=== PATIENT | female | born 1940 | race African-American/Black ===

== ENCOUNTER 2020-06-07 15:49 | Emergency (ER) | payer OTHER, SELFPAY ==
--- NOTE | 2020-06-07 | ECG_ITS ---
Test Reason : CHEST PAIN Blood Pressure : / mmHG Vent. Rate : 068 BPM Atrial Rate : 068 BPM P-R Int : 144 ms QRS Dur : 070 ms QT Int : 416 ms P-R-T Axes : 043 035 084 degrees QTc Int : 442 ms Normal sinus rhythm with sinus arrhythmia Minimal voltage criteria for LVH, may be normal variant Nonspecific T wave abnormality Abnormal ECG When compared with ECG of 08-MAY-2019 12:23, Nonspecific T wave abnormality has replaced inverted T waves in Anterolateral leads Referred By: Generic ED Physician Electronically Signed By:ELISABETH ORDONEZ MD
[2020-06-07 17:27] VITALS: BP 160/88; PULSE 68; RESP 16; TEMP 37.7; O2SAT 99; BMI 27.4
--- NOTE | 2020-06-07 18:48 | ED.GENADULT ---
HPI - General Adult General Chief complaint: General Medical Stated complaint: numbness in left side,chest pain Time Seen by Provider: 06/07/20 18:48 Source: patient Mode of arrival: ambulatory Limitations: no limitations History of Present Illness HPI narrative: patient has history of hypertension nondiabetic comes here for left hand tingling sensation left leg tingling sensation and chest pain for about a week. Chest pain is all over the chest increases on palpation continues pain no shortness of breath no cough. Patient denies any weakness no neck pain no significant back pain Onset (ago): week(s) (1) Related Data Allergies Allergy/AdvReac Type Severity Reaction Status Date / Time Latex Gloves Allergy Unknown rash Uncoded 03/16/20 00:00 Anjali spice Allergy Unknown Rash Uncoded 06/07/20 17:34 Review of Systems Review of Systems: REVIEW OF SYSTEMS: Pertinent positives and negatives are stated above in the history. GEN: no fevers, chills, fatigue HEENT: no nasal congestion, sore throat, ear pain NEURO: no headache, dizziness, focal weakness PULM: no cough, shortness of breath CV: no palpitations, LE edema ABD: no abdominal pain, nausea, vomiting, diarrhea : no dysuria, urgency, frequency SKIN: no rash ROS otherwise negative x 10 PMFSH Past Medical History Medical History Anemia GERD (gastroesophageal reflux disease) HTN (hypertension) Social History Social History Advance Directives: No Advance Directives Information Provided: No Physical Exam Vital Signs: Vital Signs: Vital Signs Temp Pulse Resp BP Pulse Ox 06/07/20 20:00 98.2 F 70 16 185/80 H 06/07/20 19:15 98.6 F 72 14 189/81 H 97 06/07/20 17:27 99.8 F 68 16 160/88 H 99 Body Mass Index 27.4 VITAL SIGNS: Reviewed. GENERAL: Well developed, well nourished, in no acute distress. HEAD: Normocephalic/atraumatic, Posterior oropharynx was without edema, erythema or exudate. EYES: PERRLA, EOMI intact without pain, no nystagmus/pallor/icterus noted EARS: Ext canals without abnormality, TMs non-bulging and non-erythematous NOSE: Nares patent bilateral OROPHARYNX: no oral lesions noted, posterior pharynx clear and non-erythematous without noted tonsillar enlargement/erythema/exudates NECK: Supple, no adenopathy LUNGS: Normal breath sounds. No adventitious sounds or accessory muscle use diffuse chest wall tenderness++ CARDIOVASCULAR: Regular rate and rhythm without noted murmurs, no JVD or lower extremity edema. ABDOMEN: Soft, non-tender, non-distended with bowel sounds. No rigidity. No guarding. No palpable masses or hernias noted MUSCULOSKELETAL: No tenderness, deformities, or effusions noted on gross inspection. EXTREMITIES: No cyanosis, clubbing or edema no spinal tenderness. SKIN: Inspection of the skin reveals no rashes, ulcerations, jaundice, pallor, or petechiae NEUROLOGIC: Alert and oriented x 3. Strength and sensation to light touch were grossly intact Tinel sign positive left hand for carpal tunnel no motor weakness of the hand SLR negative both lower extremities x 4. Course Course Course Narrative: patient with nonspecific paresthesia left side clinically left carpal tunnel syndrome lab showed significant hypo magnesemia etiology not very clear and mild hypokalemia patient was given IV magnesium and IV potassium advised to follow-up with her primary care doctor discharge her on p.o. magnesium and potassium tablets Medical Decision Making Lab Data Result diagrams: 06/07/20 20:06/07/20 20:01 Labs: Lab Results 06/07/20 06/07/20 06/07/20 Range/Units 20:01 20:01 20:01 WBC 10.8 (4.8-10.8) X10*3/uL RBC 4.15 L (4.20-5.50) X10*6/uL Hgb 13.1 (12.0-16.0) g/dl Hct 39.9 (37-47) % MCV 96.1 (80-98) fL MCH 31.6 (27.0-33.0) pg MCHC 32.8 (31.0-35.0) g/dl RDW 12.4 (11.0-16.0) % Plt Count TNP MPV 10.7 (9.4-12.3) fL Immature Gran % (Auto) 0.2 (0.0-0.4) % Neut % (Auto) 63.4 (45-73) % Lymph % (Auto) 29.8 (20-40) % [place] % (Auto) 5.6 (2-11) % Eos % (Auto) 0.5 (0-4) % Baso % (Auto) 0.5 (0-2) % Lymph # (Auto) 3.2 (1.2-4.9) X10*3/uL [place] # (Auto) 0.6 (0.1-1.2) X10*3/uL Eos # (Auto) 0.1 (0.0-0.4) X10*3/uL Baso # (Auto) 0.1 (0.0-0.2) X10*3/uL Abs Immat Gran (auto) 0.02 (0.00-0.03) X10*3/uL Absolute Neuts (auto) 6.9 (2.0-8.3) X10*3/uL Absolute Nucleated RBC 0.000 (0.0-0.012) X10*3/uL Nucleated RBC % (auto) 0.0 (0.0-0.2) /100WBC Smear Tech's Comments VERIFIED Sodium 140 (135-145) mmol/L Potassium 3.0 L (3.3-5.1) mmol/l Chloride 101 (96-108) mmol/L Carbon Dioxide 24 (22-29) mmol/L Anion Gap 18 (12-20) BUN 12 (9-16) mg/dL Creatinine 0.73 (0.5-1.4) mg/dL Estim Creat Clear Calc 46.3 Estimated GFR > 60 Random Glucose 87 (60-115) mg/dL Calcium 7.7 L (8.4-10.2) mg/dL Magnesium < 0.6 L* (1.6-2.6) mg/dL Troponin I High Sens 14.6 (<3.5-17.0) ng/L ECG Data Attestation: I personally reviewed and interpreted this ECG as follows: Prior ECG tracings: available for review Interpretation: [id number] Rhythm:sinus Nonspecific ST T wave changes sinus arrhythmia no acute ischemic changes
[2020-06-07 19:15] VITALS: BP 189/81; PULSE 72; RESP 14; TEMP 37; O2SAT 97
[2020-06-07 20:00] VITALS: BP 185/80; PULSE 70; RESP 16; TEMP 36.8
[2020-06-07 20:07] LABS: Basophils Absolute Auto 0.1 X10*3/uL (0.0-0.2); Basophils Percent Auto 0.5 % (0-2); MANUAL DIFF FLAG SCAN; PLT CLUMP 1; SCAN SMEAR FLAG 1
[2020-06-07 20:09] LABS: Eosinophils Absolute Auto 0.1 X10*3/uL (0.0-0.4); Eosinophils Percent Auto 0.5 % (0-4); Hematocrit 39.9 % (37-47); Hemoglobin 13.1 g/dl (12.0-16.0); Imm Gran Abs Auto 0.02 X10*3/uL (0.00-0.03); Imm Gran Pct Auto 0.2 % (0.0-0.4); Lymphocytes Absolute Auto 3.2 X10*3/uL (1.2-4.9); Lymphocytes Percent Auto 29.8 % (20-40); Mean Corpuscular HGB Conc 32.8 g/dl (31.0-35.0); Mean Corpuscular Hemoglobin 31.6 pg (27.0-33.0); Mean Corpuscular Volume 96.1 fL (80-98); Mean Platelet Volume 10.7 fL (9.4-12.3); Monocytes Absolute Auto 0.6 X10*3/uL (0.1-1.2); Monocytes Percent Auto 5.6 % (2-11); Neutrophils Absolute Auto 6.9 X10*3/uL (2.0-8.3); Neutrophils Percent Auto 63.4 % (45-73); Red Blood Count 4.15 X10*6/uL (4.20-5.50); Red Cell Distribution Width 12.4 % (11.0-16.0); White Blood Count 10.8 X10*3/uL (4.8-10.8)
[2020-06-07 20:32] LABS: SLIDE REVIEW VERIFIED
[2020-06-07 20:38] LABS: Troponin-I High Sensitivity 14.6 ng/L (<3.5-17.0)
[2020-06-07 20:50] LABS: Anion Gap 18 (12-20); Blood Urea Nitrogen 12 mg/dL (9-16); Calcium 7.7 mg/dL (8.4-10.2); Carbon Dioxide 24 mmol/L (22-29); Chloride 101 mmol/L (96-108); Creatinine Clr Calc Pharmacy 46.3; Estimated Glomerular Filt Rate > 60; Glucose Random 87 mg/dL (60-115); Magnesium < 0.6 mg/dL (1.6-2.6); Sodium 140 mmol/L (135-145)
[2020-06-07] MEDS: Magnesium Sulfate/H2O 2 GM/50 ML PIGGYBACK IV (21:33)
--- NOTE | 2020-06-07 21:36 | PC.NURSE ---
pt magnesium sulfate infusing thru a 20g to the left ac.
[2020-06-07] MEDS: Potassium Chloride/H20 10 MEQ/100 ML PIGGYBACK 100 MEQ IV ×2 (21:55→23:09)
--- NOTE | 2020-06-07 23:14 | PC.NURSE ---
potassium 10 emilia first bag completed. pt july well. pt has been up to bathroom with steady gait. skin pink warm dry. chest slight pain 5/10
--- NOTE | 2020-06-08 00:37 | PC.NURSE ---
iv fluids completed. pt still has pain to her mid upper chest, hard stabbing pain 7/10
[2020-06-08] MEDS: traMADoL HCL 50 MG TABLET PO (01:39)
== END 2020-06-08 01:58 | disposition home or self-care (01) ==
PROVIDERS: Emergency Provider Internal Medicine
DX: R07.9 Chest pain, unspecified (principal); R20.2 Paresthesia of skin; E83.42 Hypomagnesemia; E87.6 Hypokalemia; G56.02 Carpal tunnel syndrome, left upper limb; I10 Essential (primary) hypertension
CPT/HCPCS: 29125; 36415; 80048; 83735; 84484; 85025; 93005; 96365; 96367; 96375; 99284; J1885; J3475

== ENCOUNTER 2020-06-20 09:11 | Outpatient (REF) | payer OTHER, SELFPAY ==
[2020-06-20 10:34] LABS: Hematocrit 41.5 % (37-47); Hemoglobin 13.6 g/dl (12.0-16.0); Mean Corpuscular HGB Conc 32.8 g/dl (31.0-35.0); Mean Corpuscular Hemoglobin 31.4 pg (27.0-33.0); Mean Corpuscular Volume 95.8 fL (80-98); Mean Platelet Volume 9.8 fL (9.4-12.3); Platelet Count 333 X10*3/uL (160-400); Red Blood Count 4.33 X10*6/uL (4.20-5.50); Red Cell Distribution Width 11.7 % (11.0-16.0); White Blood Count 9.8 X10*3/uL (4.8-10.8)
[2020-06-20 10:48] LABS: Anion Gap 15 (12-20); Blood Urea Nitrogen 11 mg/dL (9-16); Calcium 9.6 mg/dL (8.4-10.2); Carbon Dioxide 28 mmol/L (22-29); Chloride 100 mmol/L (96-108); Estimated Glomerular Filt Rate > 60; Glucose Random 108 mg/dL (60-115); Magnesium 2.1 mg/dL (1.6-2.6); Potassium 4.9 mmol/l (3.3-5.1); Sodium 138 mmol/L (135-145)
== END 2020-06-20 09:12 | disposition home or self-care (01) ==
LOC: HO.10HDL 09:11
DX: E87.6 Hypokalemia (principal)
CPT/HCPCS: 36415; 80048; 83735; 85027

== ENCOUNTER 2020-08-15 17:06 | Emergency (ER) | payer OTHER, SELFPAY ==
[2020-08-15 17:10] VITALS: BP 159/79; PULSE 76; RESP 16; TEMP 37; O2SAT 98; BMI 27.4
[2020-08-15 17:58] VITALS: BP 175/76; PULSE 77; RESP 16; TEMP 36.7; O2SAT 99
--- NOTE | 2020-08-15 18:06 | ECG_ITS ---
Test Reason : left arm numbness and tingling since yesterday Blood Pressure : / mmHG Vent. Rate : 078 BPM Atrial Rate : 078 BPM P-R Int : 136 ms QRS Dur : 086 ms QT Int : 402 ms P-R-T Axes : 054 044 084 degrees QTc Int : 458 ms Sinus rhythm with Premature atrial complexes Minimal voltage criteria for LVH, may be normal variant Nonspecific T wave abnormality Abnormal ECG When compared with ECG of 07-JUN-2020 17:19, Premature atrial complexes are now Present Referred By: Shiva Laughlin Electronically Signed By:JAVIER ROMANO MD
--- NOTE | 2020-08-15 18:12 | CT_ITS ---
EXAMINATION: CT ANGIOGRAM NECK WITH CONTRAST CT ANGIOGRAM BRAIN WITH CONTRAST CLINICAL INFORMATION: Left-sided weakness since yesterday. Question infarct. COMPARISON: None. TECHNIQUE: Initial noncontrast head CT was performed. Test bolus sequences followed by intravenous administration 100 mL of Omnipaque 350. Helical imaging was performed in the axial plane from the thoracic inlet to the skull vertex. Delayed postcontrast imaging of the head was also performed. The data was processed at the special procedures technologist workstation for generation of MIP sequences. Angled MIPs and volume rendered reformatted images were also generated at an offline 3D workstation. Stenoses are assessed in accordance with NASCET criteria unless otherwise indicated. This CT examination was performed using dose optimization techniques as appropriate, variously including the following: *Automated exposure control *Adjustment of mA and/or kV according to patient size (this includes techniques or standardized protocols for targeted exams where dose is matched to indication/reason for exam; i.e. extremities or head) *Use of iterative reconstruction technique DLP: 2230 mGy-cm FINDINGS: Head CT: There is no intracranial hemorrhage, extra-axial collection, or CT evidence of acute large territory infarction. Patchy areas of hypoattenuation are seen in the bilateral periventricular and subcortical white matter likely reflecting chronic microangiopathy. The ventricles and sulci appear commensurate. No hydrocephalus is seen. There is no abnormal enhancement on the postcontrast images. The extracranial structures appear normal. CTA: The aortic arch and great vessels are patent. Atheromatous changes are seen at the left more than right carotid bifurcations but without significant stenosis. Significant calcific plaque is seen at the right vertebral artery origin resulting in mild to moderate stenosis. No proximal vessel occlusion is seen. Atheromatous changes are seen at the carotid siphons and along the intradural vertebral arteries but without significant stenosis. No definite aneurysm is seen. Non-vascular findings: No neck mass is seen. Multiple nodules are seen within the thyroid gland but measures less than 1.5 cm. There is no consolidation within the upper lungs. Multilevel degenerative changes are seen within the spine. CT/CT angio head neck IMPRESSION: CT head: No intracranial hemorrhage or large acute infarction. Patchy areas of hypoattenuation are seen in the bilateral cerebral white matter most compatible chronic microangiopathy. CTA neck: No hemodynamically significant stenosis in the major arteries of the neck. CTA head: No large vessel occlusion or significant stenosis within the intracranial circulation. This critical result was discussed with IVELISSE Arreola on 08/15/2020 11:16 PM, and it was ascertained that the content and urgency of the report was understood at the time of direct communication.
--- NOTE | 2020-08-15 19:07 | ED_ITS ---
HPI - Weakness General Chief complaint: Weakness Stated complaint: Numbness Time Seen by Provider: 08/15/20 17:38 Source: patient Mode of arrival: ambulatory Limitations: no limitations History of Present Illness HPI Narrative: To the ED for multiple complaints. Patient 1st complaint is left arm numbness, tingling, and weakness since last night. Patient also states nurse vision in left eye for the past 3 days. Patient's 3rd complaint is left lower extremity, weakness, and feels like she is dragging her left leg since last night. Patient was sent by her nurse for evaluation to make sure she is not having a stroke. Patient is out of the window. Related Data Previous Rx's Medication Instructions Recorded magnesium oxide 400 mg PO BID #60 tab 06/08/20 potassium chloride [Klor-Con M10] 10 meq PO DAILY #14 tab 06/08/20 tramadol 50 mg PO Q8H PRN #20 tab 06/08/20 nifedipine 60 mg tablet,extended 60 mg PO DAILY 90 Days #90 tab 06/22/20 release Allergies Allergy/AdvReac Type Severity Reaction Status Date / Time Latex Gloves Allergy Unknown rash Uncoded 03/16/20 00:00 Anjali spice Allergy Unknown Rash Uncoded 06/07/20 17:34 Review of Systems Constitutional: Constitutional: Reports as per HPI and Reports no additional constitutional complaints Eyes: Eyes: Reports as per HPI and Reports no additional eye complaints ENT: Reports system reviewed and no additional complaints, except as d ocumented and Reports as per HPI Cardiovascular: Cardiovascular: Reports as per HPI and Reports no additional cardiovascular complaints Respiratory: Respiratory: Reports as per HPI and Reports no additional respiratory complaints Gastrointestinal: Gastrointestinal: Reports as per HPI and Reports no additional gastrointestinal complaints Musculoskeletal: Musculoskeletal: Reports no additional musculoskeletal complaints and Reports as per HPI Comments: left upper extremity numbness/tingling/weakness. Left leg weakness and dragging. Neurologic: Reports system reviewed and no additional complaints, except as documented and Reports as per HPI Psychiatric: Psychiatric: Reports no additional psychiatric complaints and Reports as per HPI [facility] Past Medical History Medical History (Updated 08/16/20 @ 01:06 by IVELISSE Arreola) Anemia DVT (deep venous thrombosis) GERD (gastroesophageal reflux disease) HTN (hypertension) Social History Social History Alcohol intake: never Smoking Status: Never smoker Smoked in Last 30 Days: No Use of substances other than those prescribed or required for medical reasons: No Advance Directives: No Advance Directives Information Provided: Yes Physical Exam Vital Signs: Vital Signs: Last Vital Signs Temp 98.8 F 08/15/20 21:53 Pulse 78 08/16/20 01:15 Resp 16 08/16/20 01:15 BP 172/83 H 08/16/20 01:15 Pulse Ox 95 08/16/20 01:15 Body Mass Index 27.4 Const: General: cooperative, healthy appearing, comfortable, no acute distress, well developed, alert and awake Orientation/consciousness: patient oriented x3 HENMT: Head: Yes normal to inspection and Yes No palpable skull fracture present Eyes: General: appearance normal, both eyes and all related structures Neck: Other: Negative for carotid bruit Neck: Yes normal visual inspection, Yes full ROM, Yes no lymphadenopathy, Yes no meningeal signs, Yes trachea midline, Yes supple and No tender Chest: Chest palpation & inspection: normal inspection of the chest and abnormal palpation of chest wall Resp: Effort & Inspection: normal respiratory effort and able to speak in complete sentences Auscultation: clear to auscultation bilaterally Cardio: Jugular venous distension: no JVD Heart sounds: S1 normal heart sound present and S2 normal heart sound present GI: Inspection: Yes normal to inspection and No abdominal wall ecchymosis Palpation (GI): Soft to palpation, not firm, nontender, no guarding and not rigid : General: No CVA tenderness and Yes no CVA tenderness Back/Spine/Pelvis: Back: no CVA tenderness, No CVA tenderness and No back tenderness Skin: General skin exam: no rashes or lesions noted and elasticity normal Neuro: Other: Negative for facial droop. Negative for slurred speech. Negative for pronator drift. Right/left upper and lower extremity strength 5+. Rapid hand movement and [id number] tests are intact. General: patient or iented x3 and no meningeal signs Extrem: Other: Negative for any swelling, redness, ecchymosis, or deformities of lower or upper extremities to indicate cellulitis, DVT, or fracture. Pulses of lower extremities are intact Psych: Appearance: grossly normal and well kempt Course Course Course Narrative: Send patient for CT angio of neck to rule out any stroke although patient's out the window. Will order basic labs including EKG and troponin. Will also add magnesium. Reevaluation(s) Reevaluation #1: Patient magnesium came back at 1.0. Patient lower extremity x- ray negative for any fractures. I observed patient walking to the bathroom & she did not have any dragging of the left leg or abnormal gait. Patient initial troponin came back at 14. Due to patient staying story of dragging of left lower extremity, blurry vision left eye, and weakness and numbness and left upper extremity and medical risk factors for stroke, patient head CTA was ordered before I saw her walking. Very unlikely patient having a stroke awaiting for head CTA and neck results. Time: 20:31 Reevaluation #2: Head CT came back negative. Second troponin repeat magnesium ordered. Time: 00:11 Reevaluation #3: Patient states history of cataracts and left. Visual acuity in both eyes were 20/30. Bedside ultrasound of left eye negative for retinal detachment. Awaiting for 2nd troponin and magnesium. Time: 00:38 Additional Reevaluation(s): Patient's 2nd troponin decreased. Patient magnesium is normal. Patient is safe for discharge. Re-evaluation negative for neuro focal deficits. MDM - Weakness MDM Narrative Medical decision making narrative: Paresthesia. Weakness Lab Data Result diagrams: 08/15/20 20:31 12 20:31 Labs: Lab Results 08/15/20 08/15/20 12 Range/Units 20:31 20:31 20:31 WBC 12.1 H (4.8-10.8) X10*3/uL RBC 4.17 L (4.20-5.50) X10*6/uL Hgb 13.0 (12.0-16.0) g/dl Hct 38.5 (37-47) % MCV 92.3 (80-98) fL MCH 31.2 (27.0-33.0) pg MCHC 33.8 (31.0-35.0) g/dl RDW 12.2 (11.0-16.0) % Plt Count 277 (160-400) X10*3/uL MPV 9.6 (9.4-12.3) fL Immature Gran % (Auto) 0.2 (0.0-0.4) % Neut % (Auto) 60.7 (45-73) % Lymph % (Auto) 30.9 (20-40) % [place] % (Auto) 7.2 (2-11) % Eos % (Auto) 0.7 (0-4) % Baso % (Auto) 0.3 (0-2) % Lymph # (Auto) 3.7 (1.2-4.9) X10*3/uL [place] # (Auto) 0.9 (0.1-1.2) X10*3/uL Eos # (Auto) 0.1 (0.0-0.4) X10*3/uL Baso # (Auto) 0.0 (0.0-0.2) X10*3/uL Abs Immat Gran (auto) 0.02 (0.00-0.03) X10*3/uL Absolute Neuts (auto) 7.3 (2.0-8.3) X10*3/uL Absolute Nucleated RBC 0.000 (0.0-0.012) X10*3/uL Nucleated RBC % (auto) 0.0 (0.0-0.2) /100WBC PT 12.6 (10.8-13.0) SEC INR 1.1 (0.9-1.1) APTT 33.1 (24.1-38.0) SEC Sodium 141 (135-145) mmol/L Potassium 3.5 D (3.3-5.1) mmol/l Chloride 101 (96-108) mmol/L Carbon Dioxide 33 H (22-29) mmol/L Anion Gap 11 L (12-20) BUN 13 (9-16) mg/dL Creatinine 0.74 (0.5-1.4) mg/dL Estim Creat Clear Calc 45.6 Estimated GFR > 60 Random Glucose 90 (60-115) mg/dL Calcium 9.3 (8.4-10.2) mg/dL Magnesium (1.6-2.6) mg/dL Total Bilirubin 0.3 (0.0-1.0) mg/dL AST 14 (5-31) U/L ALT 9 (0-31) U/L Alkaline Phosphatase 76 (39-117) U/L Troponin I High Sens (<3.5-17.0) ng/L Total Protein 7.0 (6.5-8.0) g/dL Albumin 4.2 (3.5-5.0) g/dL Urine Color Urine Appearance Urine pH (5.0-8.0) Ur Specific [place] (1.005-1.025) Urine Protein (NEG-TRACE) MG/DL Urine Glucose (UA) (NEG) MG/DL Urine Ketones (NEG) MG/DL Urine Blood (NEG) Urine Nitrite (NEG) Ur Leukocyte Esterase (NEG) 08/15/20 08/15/20 08/15/20 Range/Units 20:31 20:31 20:31 WBC (4.8-10.8) X10*3/uL RBC (4.20-5.50) X10*6/uL Hgb (12.0-16.0) g/dl Hct (37-47) % MCV (80-98) fL MCH (27.0-33.0) pg MCHC (31.0-35.0) g/dl RDW (11.0-16.0) % Plt Count (160-400) X10*3/uL MPV (9.4-12.3) fL Immature Gran % (Auto) (0.0-0.4) % Neut % (Auto) (45-73) % Lymph % (Auto) (20-40) % [place] % (Auto) (2-11) % Eos % (Auto) (0-4) % Baso % (Auto) (0-2) % Lymph # (Auto) (1.2-4.9) X10*3/uL [place] # (Auto) (0.1-1.2) X10*3/uL Eos # (Auto) (0.0-0.4) X10*3/uL Baso # (Auto) (0.0-0.2) X10*3/uL Abs Immat Gran (auto) (0.00-0.03) X10*3/uL Absolute Neuts (auto) (2.0-8.3) X10*3/uL Absolute Nucleated RBC (0.0-0.012) X10*3/uL Nucleated RBC % (auto) (0.0-0.2) /100WBC PT (10.8-13.0) SEC INR (0.9-1.1) APTT (24.1-38.0) SEC Sodium (135-145) mmol/L Potassium (3.3-5.1) mmol/l Chloride (96-108) mmol/L Carbon Dioxide (22-29) mmol/L Anion Gap (12-20) BUN (9-16) mg/dL Creatinine (0.5-1.4) mg/dL Estim Creat Clear Calc Estimated GFR Random Glucose (60-115) mg/dL Calcium (8.4-10.2) mg/dL Magnesium 1.0 L* (1.6-2.6) mg/dL Total Bilirubin (0.0-1.0) mg/dL AST (5-31) U/L ALT (0-31) U/L Alkaline Phosphatase (39-117) U/L Troponin I High Sens 11.1 (<3.5-17.0) ng/L Total Protein (6.5-8.0) g/dL Albumin (3.5-5.0) g/dL Urine Color STRAW Urine Appearance CLEAR Urine pH 7.0 (5.0-8.0) Ur Specific [place] 1.010 (1.005-1.025) Urine Protein NEG (NEG-TRACE) MG/DL Urine Glucose (UA) NEG (NEG) MG/DL Urine Ketones NEG (NEG) MG/DL Urine Blood NEG (NEG) Urine Nitrite NEG (NEG) Ur Leukocyte Esterase NEG (NEG) 08/15/20 08/15/20 Range/Units 23:41 23:41 WBC (4.8-10.8) X10*3/uL RBC (4.20-5.50) X10*6/uL Hgb (12.0-16.0) g/dl Hct (37-47) % MCV (80-98) fL MCH (27.0-33.0) pg MCHC (31.0-35.0) g/dl RDW (11.0-16.0) % Plt Count (160-400) X10*3/uL MPV (9.4-12.3) fL Immature Gran % (Auto) (0.0-0.4) % Neut % (Auto) (45-73) % Lymph % (Auto) (20-40) % [place] % (Auto) (2-11) % Eos % (Auto) (0-4) % Baso % (Auto) (0-2) % Lymph # (Auto) (1.2-4.9) X10*3/uL [place] # (Auto) (0.1-1.2) X10*3/uL Eos # (Auto) (0.0-0.4) X10*3/uL Baso # (Auto) (0.0-0.2) X10*3/uL Abs Immat Gran (auto) (0.00-0.03) X10*3/uL Absolute Neuts (auto) (2.0-8.3) X10*3/uL Absolute Nucleated RBC (0.0-0.012) X10*3/uL Nucleated RBC % (auto) (0.0-0.2) /100WBC PT (10.8-13.0) SEC INR (0.9-1.1) APTT (24.1-38.0) SEC Sodium (135-145) mmol/L Potassium (3.3-5.1) mmol/l Chloride (96-108) mmol/L Carbon Dioxide (22-29) mmol/L Anion Gap (12-20) BUN (9-16) mg/dL Creatinine (0.5-1.4) mg/dL Estim Creat Clear Calc Estimated GFR Random Glucose (60-115) mg/dL Calcium (8.4-10.2) mg/dL Magnesium 2.0 (1.6-2.6) mg/dL Total Bilirubin (0.0-1.0) mg/dL AST (5-31) U/L ALT (0-31) U/L Alkaline Phosphatase (39-117) U/L Troponin I High Sens 10.4 (<3.5-17.0) ng/L Total Protein (6.5-8.0) g/dL Albumin (3.5-5.0) g/dL Urine Color Urine Appearance Urine pH (5.0-8.0) Ur Specific [place] (1.005-1.025) Urine Protein (NEG-TRACE) MG/DL Urine Glucose (UA) (NEG) MG/DL Urine Ketones (NEG) MG/DL Urine Blood (NEG) Urine Nitrite (NEG) Ur Leukocyte Esterase (NEG) ECG Data Interpretation: Sinus rhythm with premature atrial complexes. Ventricular rate 78. Pr interval 136. QRS duration 86. QTC 458 Discharge Plan Discharge Clinical Impression: Paresthesia Patient Disposition: Home, Self-Care Instructions: Paresthesia (ED), Weakness (ED) Additional Instructions: Return to the ED immediately for any slurred speech, loss of vision, paralysis of extremities, swelling of lower extremities, calf pain, redness, coughing up blood, dizziness, fever, chills, or any other concerning symptoms. Recommend follow-up with the eye doctor for your left eye cataracts. Please follow-up with PCP. CT of head and neck was negative for stroke. Electrolytes were normal. Troponin is negative. EKG did not show any new changes. Prescriptions: No Action nifedipine 60 mg tablet extended release 60 mg PO DAILY 90 Days Qty: 90 RF: 3 magnesium oxide 400 mg magnesium tablet 400 mg PO BID Qty: 60 RF: 0 potassium chloride [Klor-Con M10] 10 mEq tablet,ER particles/crystals 10 meq PO DAILY Qty: 14 RF: 0 tramadol 50 mg tablet 50 mg PO Q8H PRN (Reason: pain) Qty: 20 RF: 0 Interventions: ED Discharge Assessment Last Done: 08/16/20 01:16 Discharge Date/Time: 08/16/20 01:17 Print Language: Sinhala
--- NOTE | 2020-08-15 19:41 | XR_ITS ---
EXAMINATION: XR TIBIA AND FIBULA, LEFT CLINICAL INFORMATION: Leg pain COMPARISON: None TECHNIQUE: AP and lateral views of the left tibia and fibula were obtained. FINDINGS: The bones and soft tissues are normal. No fracture. No osseous lesions. XR/XR tibia fibula LT 2V IMPRESSION: Normal left tibia and fibula.
[2020-08-15 20:32] VITALS: BP 170/71; PULSE 68; RESP 16; O2SAT 99
[2020-08-15 20:41] LABS: MANUAL DIFF FLAG NO
[2020-08-15 20:42] LABS: Basophils Percent Auto 0.3 % (0-2); Eosinophils Absolute Auto 0.1 X10*3/uL (0.0-0.4); Eosinophils Percent Auto 0.7 % (0-4); Hematocrit 38.5 % (37-47); Imm Gran Abs Auto 0.02 X10*3/uL (0.00-0.03); Imm Gran Pct Auto 0.2 % (0.0-0.4); Lymphocytes Absolute Auto 3.7 X10*3/uL (1.2-4.9); Lymphocytes Percent Auto 30.9 % (20-40); Mean Corpuscular HGB Conc 33.8 g/dl (31.0-35.0); Mean Corpuscular Hemoglobin 31.2 pg (27.0-33.0); Mean Corpuscular Volume 92.3 fL (80-98); Mean Platelet Volume 9.6 fL (9.4-12.3); Monocytes Absolute Auto 0.9 X10*3/uL (0.1-1.2); Monocytes Percent Auto 7.2 % (2-11); Neutrophils Absolute Auto 7.3 X10*3/uL (2.0-8.3); Neutrophils Percent Auto 60.7 % (45-73); Platelet Count 277 X10*3/uL (160-400); Red Blood Count 4.17 X10*6/uL (4.20-5.50); Red Cell Distribution Width 12.2 % (11.0-16.0); White Blood Count 12.1 X10*3/uL (4.8-10.8)
[2020-08-15 20:43] LABS: Glucose Urine UA NEG (NEG); Leukocyte Esterase Urine NEG (NEG); Nitrite Urine NEG (NEG); Urine Blood NEG (NEG); Urine Ketones NEG (NEG); Urine Protein NEG (NEG-TRACE)
[2020-08-15 20:46] LABS: Appearance Urine CLEAR; Color Urine STRAW
[2020-08-15 20:47] LABS: INTERNATIONAL NORM RATIO 1.1 (0.9-1.1); Prothrombin Time 12.6 SEC (10.8-13.0)
[2020-08-15 20:50] LABS: Partial Thromboplastin Time 33.1 SEC (24.1-38.0)
[2020-08-15 21:03] LABS: Alanine Aminotransferase 9 U/L (0-31); Albumin Level 4.2 g/dL (3.5-5.0); Alkaline Phosphatase 76 U/L (39-117); Anion Gap 11 (12-20); Aspartate Amino Transferase 14 U/L (5-31); Bilirubin Total 0.3 mg/dL (0.0-1.0); Blood Urea Nitrogen 13 mg/dL (9-16); Calcium 9.3 mg/dL (8.4-10.2); Carbon Dioxide 33 mmol/L (22-29); Chloride 101 mmol/L (96-108); Creatinine Clr Calc Pharmacy 45.6; Estimated Glomerular Filt Rate > 60; Glucose Random 90 mg/dL (60-115); Potassium 3.5 mmol/l (3.3-5.1); Sodium 141 mmol/L (135-145)
[2020-08-15 21:07] LABS: Troponin-I High Sensitivity 11.1 ng/L (<3.5-17.0)
--- NOTE | 2020-08-15 21:40 | XR_ITS ---
EXAMINATION: XR KNEE, LEFT CLINICAL INFORMATION: Knee pain COMPARISON: None TECHNIQUE: Four views of the left knee. FINDINGS: Mild medial compartment joint space narrowing. No fracture, dislocation, or joint effusion. Vascular calcifications. XR/XR knee LT 4V IMPRESSION: No acute osseous abnormality of the left knee.
[2020-08-15] MEDS: iohexoL 350 MG/ML 100 ML INFUS..BTL IV (21:43)
[2020-08-15 21:53] VITALS: BP 174/69; PULSE 70; RESP 14; TEMP 37.1; O2SAT 98
[2020-08-15] MEDS: Magnesium Sulfate/H2O 2 GM/50 ML PIGGYBACK IV (22:14)
[2020-08-15 22:16] VITALS: BP 167/77; PULSE 84; RESP 14; O2SAT 99
[2020-08-16 00:12] LABS: Troponin-I High Sensitivity 10.4 ng/L (<3.5-17.0)
[2020-08-16 01:15] VITALS: BP 172/83; PULSE 78; RESP 16; O2SAT 95
== END 2020-08-16 01:17 | disposition home or self-care (01) ==
PROVIDERS: Physician Assistant; Emergency Provider Internal Medicine
DX: R20.2 Paresthesia of skin (principal); I10 Essential (primary) hypertension; Z86.718 Personal history of other venous thrombosis and embolism
CPT/HCPCS: 36415; 70496; 70498; 73564; 73590; 80053; 81003; 83735; 84484; 85025; 85610; 85730; 93005; 96365; 96366; 99284; 99285; J3475; Q9967

== ENCOUNTER 2020-09-21 10:51 | Emergency (ER) | payer OTHER, SELFPAY ==
[2020-09-21 11:01] VITALS: BP 204/84; PULSE 60; RESP 20; TEMP 36.8; O2SAT 99; BMI 25.9
--- NOTE | 2020-09-21 11:10 | ECG_ITS ---
Test Reason : CP Blood Pressure : / mmHG Vent. Rate : 084 BPM Atrial Rate : 084 BPM P-R Int : 160 ms QRS Dur : 086 ms QT Int : 392 ms P-R-T Axes : 077 052 073 degrees QTc Int : 463 ms Sinus rhythm with Premature supraventricular complexes Minimal voltage criteria for LVH, may be normal variant Nonspecific T wave abnormality Abnormal ECG When compared with ECG of 15-AUG-2020 17:34, No significant change was found Referred By: Ayan Angela Electronically Signed By:Tyson Kirby
--- NOTE | 2020-09-21 11:15 | ED.CHESTPAIN ---
HPI - Chest Pain General Chief Complaint: Chest Pain <Ayan Angela NP - Last Filed: 09/23/20 12:48> Stated Complaint: ears ringing headache - numbness <Ayan Angela NP - Last Filed: 09/23/20 12:48> Time Seen by Provider: 09/21/20 11:15 <Ayan Angela NP - Last Filed: 09/23/20 12:48> Source: patient <Ayan Angela NP - Last Filed: 09/23/20 12:48> Mode of arrival: ambulatory <Ayan Angela NP - Last Filed: 09/23/20 12:48> Limitations: no limitations <Ayan Angela NP - Last Filed: 09/23/20 12:48> History of Present Illness HPI narrative: This is a pleasant 80-year-old female with past medical history that is significant for anemia, gastroesophageal reflux disease and hypertension who presents with multiple complaints 1. States she has had some facial congestion and right ear pain feels like her ears are full and causing her to be dizzy for the past several days. Two she reports that she has had left-sided chest pain radiates to left arm sometimes she has had this in the past and similar to previous episodes she was here last month for same and not had much change. She states pain is worse with movement. States she has longstanding history of this and has been worked up for this in the past. She otherwise does endorse slight rhinorrhea and congestion prior to having the ear pain and fullness. No discharge from the ear or discharge. <Ayan Angela NP - Last Filed: 09/23/20 12:48> MD complaint: chest discomfort <Ayan Angela NP - Last Filed: 09/23/20 12:48> Onset (ago): day(s) <Ayan Angela NP - Last Filed: 09/23/20 12:48> Prior episodes: Yes <Ayan Angela NP - Last Filed: 09/23/20 12:48> Onset: during rest <Ayan Angela NP - Last Filed: 09/23/20 12:48> Severity: mild <Ayan Angela NP - Last Filed: 09/23/20 12:48> Context: recent illness <Ayan Angela NP - Last Filed: 09/23/20 12:48> Treatment prior to arrival: none <Ayan Angela NP - Last Filed: 09/23/20 12:48> Risk Factors Coronary artery disease risk factors: hypertension <ZULEMA Marcano Last Filed: 09/23/20 12:48> Related Data Home Medications: Home Medications Medication Instructions Recorded Confirmed ferrous sulfate 1 tab PO BID 09/21/20 09/21/20 gabapentin 1 cap PO BID 09/21/20 09/21/20 nifedipine 30 mg PO DAILY 09/21/20 09/21/20 omeprazole 1 cap PO BID 09/21/20 09/21/20 Previous Rx's Medication Instructions Recorded tramadol 50 mg PO Q8H PRN #20 tab 06/08/20 <Ayan Angela NP - Last Filed: 09/23/20 12:48> Allergies/Adverse Reactions: Allergies Allergy/AdvReac Type Severity Reaction Status Date / Time Latex Gloves Allergy Unknown rash Uncoded 03/16/20 00:00 Anjali spice Allergy Unknown Rash Uncoded 06/07/20 17:34 <Ayan Angela NP - Last Filed: 09/23/20 12:48> Review of Systems Review of Systems: Constitutional: No Weight loss, No Fever, No Chills, No Night Sweats, No Fatigue, No Malaise ENT/Mouth: No Hearing loss, + R Ear Pain, + Nasal Congestion, No Sinus Pain, No Hoarseness, No sore throat, No Swallowing Difficulty Eyes: No Eye Pain, No Swelling, No Redness, No Foreign Body, No Discharge, No Vision Changes Cardiovascular: + Chest Pain, No SOB, No Dyspnea on Exertion, No Orthopnea, No Edema, No Palpitations Respiratory: No Cough, No Sputum, No Wheezing, No Smoke Exposure, No Dyspnea Gastrointestinal: No Nausea, No Vomiting, No Diarrhea, No Constipation, No abdominal Pain, No Hematochezia, No Melena Genitourinary: no irregular bleeding, No Dysuria, No Urinary Frequency, No Hematuria, No Urinary Incontinence, No Urgency, No Flank Pain Musculoskeletal: No joint pain, No Myalgias, No Joint Swelling Skin: No Skin Lesions, No rash Neuro: No Weakness, No Numbness, No Paresthesias, No Loss of Consciousness, No Dizziness, No Headache Psych: No Social Issues Heme/Lymph: No Bruising, No Bleeding,No Lymphadenopathy Endocrine: No Polyuria, No Polydipsia, No Temperature Intolerance <Ayan Angela NP - Last Filed: 09/23/20 12:48> Yes all other systems are reviewed and are negative <Ayan Angela NP - Last Filed: 09/23/20 12:48> PMF Past Medical History Medical History: Medical History (Updated 09/22/20 @ 00:00 by Blayne Guerra) Anemia DVT (deep venous thrombosis) Gastritis GERD (gastroesophageal reflux disease) HTN (hypertension) Renal cyst <Ayan Angela NP - Last Filed: 09/23/20 12:48> Social History Social History: Social History Alcohol intake: never Smoking Status: Never smoker Smoked in Last 30 Days: No Use of substances other than those prescribed or required for medical reasons: No Advance Directives: Yes Advance Directives Information Provided: Yes Advance Directives on File: No <Ayan Angela NP - Last Filed: 09/23/20 12:48> Physical Exam Vital Signs: Vital Signs: Last Vital Signs Temp 98.5 F 09/21/20 13:45 Pulse 81 09/21/20 16:01 Resp 12 09/21/20 16:01 BP 135/45 L 09/21/20 16:01 Pulse Ox 98 09/21/20 16:01 Body Mass Index 25.9 Reviewed <Ayan Angela NP - Last Filed: 09/23/20 12:48> Vital Signs: Last Vital Signs Temp 98.5 F 09/21/20 13:45 Pulse 81 09/21/20 16:01 Resp 12 09/21/20 16:01 BP 135/45 L 09/21/20 16:01 Pulse Ox 98 09/21/20 16:01 Body Mass Index 25.9 <Nba Madera MD - Last Filed: 09/28/20 11:04> Const: General: cooperative and healthy appearing; No acute distress or intoxicated appearing <Ayan Angela NP - Last Filed: 09/23/20 12:48> Nutritional Appearance: average body habitus <Ayan Angela NP - Last Filed: 09/23/20 12:48> Orientation/consciousness: patient oriented x3 <Ayan Angela, [employer]PERATOR - Last Filed: 09/23/20 12:48> HENMT: Head: Yes normal to inspection <Ayan AngelaZULEMA downs Last Filed: 09/23/20 12:48> Ears: hearing grossly normal bilaterally and TM abnormal (Right TM bulging with clear fluid, negative [place]-Hallpike) bulging <[facility] Angela, [employer] DUMPER OPERATOR - Last Filed: 09/23/20 12:48> Eyes: General: appearance normal, both eyes and all related structures <Ayan Angela, - Last Filed: 09/23/20 12:48> Visual Rodriguez: normal visual rodriguez by confrontation <[facility] Angela, [facility] Last Filed: 09/23/20 12:48> Neck: Neck: Yes normal visual inspection, No positive Brudzinski's sign, No positive Kernig's sign and No tender <[facility] Angela, [facility] Last Filed: 09/23/20 12:48> Thyroid: Thyroid normal <[facility] Angela, [facility] Last Filed: 09/23/20 12:48> Chest: Chest palpation & inspection: normal inspection of the chest <[facility] Coreen [facility] Last Filed: 09/23/20 12:48> Resp: Effort & Inspection: normal respiratory effort <Ayan AngelaZULEMA downs Last Filed: 09/23/20 12:48> Auscultation: clear to auscultation bilaterally <[facility] Angela, [employer] OPER[employer] - Last Filed: 09/23/20 12:48> Cardio: Jugular venous distension: no JVD <[facility] Angela, [employer] OPERATOR - Last Filed: 09/23/20 12:48> Rhythm: regular rhythm <[facility] Angela, [facility] Last Filed: 09/23/20 12:48> Heart sounds: S1 normal heart sound present and S2 normal heart sound present <[facility] ZULEMA Angela - Last Filed: 09/23/20 12:48> GI: Inspection: Yes normal to inspection <[facility] ZULEMA Angela Last Filed: 09/23/20 12:48> Percussion: Yes normal to percussion <[facility] ZULEMA Angela Last Filed: 09/23/20 12:48> Auscultation: normal bowel sounds <Ayan ZULEMA Angela - Last Filed: 09/23/20 12:48> : General: Yes no CVA tenderness <Ayan ElenaZULEMA downs - Last Filed: 09/23/20 12:48> Back/Spine/Pelvis: Back: no CVA tenderness <Ayan AngelaZULEMA - Last Filed: 09/23/20 12:48> Skin: General skin exam: no rashes or lesions noted <Ayan ElenaZULEMA downs - Last Filed: 09/23/20 12:48> Neuro: Other: Negative Spurling No focal neurological findings <Ayan ElenaZULEMA downs - Last Filed: 09/23/20 12:48> General: patient oriented x3 <Ayan ElenaZULEMA downs - Last Filed: 09/23/20 12:48> Extrem: General: Yes normal to inspection <Ayan AngelaZULEMA - Last Filed: 09/23/20 12:48> NIH Stroke Scale Internal: Initial- Upon Arrival <Ayan ZULEMA Angela - Last Filed: 09/23/20 12:48> Level of Consciousness: Alert <Ayan AngelaZULEMA - Last Filed: 09/23/20 12:48> Level of Consciousness Questions: Answers both questions correctly <Ayan ZULEMA Angela - Last Filed: 09/23/20 12:48> Level of Consciousness Commands: Performs both tasks correctly <Ayan ElenaZULEMA downs - Last Filed: 09/23/20 12:48> Visual: No visual loss <Ayan ElenaZULEMA downs - Last Filed: 09/23/20 12:48> Facial Palsy: Normal <Ayan ElenaZULEMA downs - Last Filed: 09/23/20 12:48> Motor Arm (Right): No drift <Ayan ZULEMA Angela - Last Filed: 09/23/20 12:48> Motor Arm (Left): No drift <Ayan ZULEMA Angela - Last Filed: 09/23/20 12:48> Motor Leg (Right): No drift <Ayan ZULEMA Angela - Last Filed: 09/23/20 12:48> Motor Leg (Left): No drift <Ayan ZULEMA Angela - Last Filed: 09/23/20 12:48> Limb Ataxia: Absent <Ayan ZULEMA Angela - Last Filed: 09/23/20 12:48> Sensory: Normal <Ayan Angela NP - Last Filed: 09/23/20 12:48> Best Language: No aphasia <Ayan Angela NP - Last Filed: 09/23/20 12:48> Dysarthia: Normal <Ayan Angela NP - Last Filed: 09/23/20 12:48> Extinction and Inattention: No abnormality <Ayan Angela NP - Last Filed: 09/23/20 12:48> Course Course Course Narrative: I have reviewed the chart <Nba Madera MD - Last Filed: 09/28/20 11:04> MDM - Chest Pain MDM Narrative Medical decision making narrative: Exam and presentation consistent with right ear otalgia likely source for dizziness otherwise no focal neurological findings. Ambulatory status with gait. Pain in the chest radiculopathy type in nature has had this for long time has had chest studies as well as CT of the head neck in the recent past negative. She is hemodynamically stable. Her workup is overall reassuring. Serial troponin without delta. EKG without change. She has not tachycardic or hypoxic to suggest PE. Will discharge home with clear precaution return follow-up instructions she feels comfortable plan will follow-up with her primary care doctor for a rebound and 3-5 days. Stable for discharge. <Ayan Angela NP - Last Filed: 09/23/20 12:48> Medical Records Data Attestation: I reviewed the patient's medical records. <Ayan Angela NP - Last Filed: 09/23/20 12:48> Medical records narrative: CTA head/ neck August 15 reviewed <Ayan Angela NP - Last Filed: 09/23/20 12:48> Lab Data Attestation: I reviewed the patient's lab results. <Ayan Angela NP - Last Filed: 09/23/20 12:48> Result diagrams: : 09/21/20 12:02 09/21/20 12:02 <Ayan Angela NP - Last Filed: 09/23/20 12:48> Labs: Lab Results 09/21/20 09/21/20 09/21/20 Range/Units 11:41 12:02 12:02 WBC (4.8-10.8) X10*3/uL RBC (4.20-5.50) X10*6/uL Hgb (12.0-16.0) g/dl Hct (37-47) % MCV (80-98) fL MCH (27.0-33.0) pg MCHC (31.0-35.0) g/dl RDW (11.0-16.0) % Plt Count (160-400) X10*3/uL MPV (9.4-12.3) fL Immature Gran % (Auto) (0.0-0.4) % Neut % (Auto) (45-73) % Lymph % (Auto) (20-40) % [place] % (Auto) (2-11) % Eos % (Auto) (0-4) % Baso % (Auto) (0-2) % Lymph # (Auto) (1.2-4.9) X10*3/uL [place] # (Auto) (0.1-1.2) X10*3/uL Eos # (Auto) (0.0-0.4) X10*3/uL Baso # (Auto) (0.0-0.2) X10*3/uL Abs Immat Gran (auto) (0.00-0.03) X10*3/uL Absolute Neuts (auto) (2.0-8.3) X10*3/uL Absolute Nucleated RBC (0.0-0.012) X10*3/uL Nucleated RBC % (auto) (0.0-0.2) /100WBC PT 13.6 H (10.8-13.0) SEC INR 1.1 (0.9-1.1) APTT 30.8 (24.1-38.0) SEC Sodium 143 (135-145) mmol/L Potassium 3.6 (3.3-5.1) mmol/l Chloride 106 (96-108) mmol/L Carbon Dioxide 25 (22-29) mmol/L Anion Gap 16 (12-20) BUN 16 (9-16) mg/dL Creatinine 0.78 (0.5-1.4) mg/dL Estim Creat Clear Calc 41.5 Estimated GFR > 60 Random Glucose 105 (60-115) mg/dL Calcium 8.9 (8.4-10.2) mg/dL Magnesium 1.0 L* (1.6-2.6) mg/dL Total Bilirubin 0.5 (0.0-1.0) mg/dL AST 11 (5-31) U/L ALT 8 (0-31) U/L Alkaline Phosphatase 76 (39-117) U/L Troponin I High Sens (<3.5-17.0) ng/L Total Protein 6.6 (6.5-8.0) g/dL Albumin 3.9 (3.5-5.0) g/dL Urine Color Urine Appearance Urine pH (5.0-8.0) Ur Specific Stokes (1.005-1.025) Urine Protein (NEG-TRACE) MG/DL Urine Glucose (UA) (NEG) MG/DL Urine Ketones (NEG) MG/DL Urine Blood (NEG) Urine Nitrite (NEG) Ur Leukocyte Esterase (NEG) Urine RBC (0) /HPF Urine WBC (0-4) /HPF Ur Squamous Epith Cells /LPF Urine Bacteria /LPF Coronavirus (PCR) NEGATIVE (Negative) Influenza Type A (PCR) NEGATIVE (Negative) Influenza Type B (PCR) NEGATIVE (Negative) RSV RNA Qual (PCR) NEGATIVE (Negative) 09/21/20 09/21/20 09/21/20 Range/Units 12:02 12:02 13:40 WBC 10.2 (4.8-10.8) X10*3/uL RBC 4.04 L (4.20-5.50) X10*6/uL Hgb 12.6 (12.0-16.0) g/dl Hct 38.2 (37-47) % MCV 94.6 (80-98) fL MCH 31.2 (27.0-33.0) pg MCHC 33.0 (31.0-35.0) g/dl RDW 12.2 (11.0-16.0) % Plt Count 244 (160-400) X10*3/uL MPV 9.5 (9.4-12.3) fL Immature Gran % (Auto) 0.2 (0.0-0.4) % Neut % (Auto) 63.8 (45-73) % Lymph % (Auto) 28.0 (20-40) % [place] % (Auto) 7.1 (2-11) % Eos % (Auto) 0.5 (0-4) % Baso % (Auto) 0.4 (0-2) % Lymph # (Auto) 2.9 (1.2-4.9) X10*3/uL [place] # (Auto) 0.7 (0.1-1.2) X10*3/uL Eos # (Auto) 0.1 (0.0-0.4) X10*3/uL Baso # (Auto) 0.0 (0.0-0.2) X10*3/uL Abs Immat Gran (auto) 0.02 (0.00-0.03) X10*3/uL Absolute Neuts (auto) 6.5 (2.0-8.3) X10*3/uL Absolute Nucleated RBC 0.000 (0.0-0.012) X10*3/uL Nucleated RBC % (auto) 0.0 (0.0-0.2) /100WBC PT (10.8-13.0) SEC INR (0.9-1.1) APTT (24.1-38.0) SEC Sodium (135-145) mmol/L Potassium (3.3-5.1) mmol/l Chloride (96-108) mmol/L Carbon Dioxide (22-29) mmol/L Anion Gap (12-20) BUN (9-16) mg/dL Creatinine (0.5-1.4) mg/dL Estim Creat Clear Calc Estimated GFR Random Glucose (60-115) mg/dL Calcium (8.4-10.2) mg/dL Magnesium (1.6-2.6) mg/dL Total Bilirubin (0.0-1.0) mg/dL AST (5-31) U/L ALT (0-31) U/L Alkaline Phosphatase (39-117) U/L Troponin I High Sens 8.1 (<3.5-17.0) ng/L Total Protein (6.5-8.0) g/dL Albumin (3.5-5.0) g/dL Urine Color YELLOW Urine Appearance CLEAR Urine pH 7.0 (5.0-8.0) Ur Specific Stokes 1.010 (1.005-1.025) Urine Protein NEG (NEG-TRACE) MG/DL Urine Glucose (UA) NEG (NEG) MG/DL Urine Ketones NEG (NEG) MG/DL Urine Blood NEG (NEG) Urine Nitrite NEG (NEG) Ur Leukocyte Esterase NEG (NEG) Urine RBC 0 (0) /HPF Urine WBC 1-4 (0-4) /HPF Ur Squamous Epith Cells 1+ /LPF Urine Bacteria NONE /LPF Coronavirus (PCR) (Negative) Influenza Type A (PCR) (Negative) Influenza Type B (PCR) (Negative) RSV RNA Qual (PCR) (Negative) 09/21/20 09/21/20 Range/Units 16:23 16:23 WBC (4.8-10.8) X10*3/uL RBC (4.20-5.50) X10*6/uL Hgb (12.0-16.0) g/dl Hct (37-47) % MCV (80-98) fL MCH (27.0-33.0) pg MCHC (31.0-35.0) g/dl RDW (11.0-16.0) % Plt Count (160-400) X10*3/uL MPV (9.4-12.3) fL Immature Gran % (Auto) (0.0-0.4) % Neut % (Auto) (45-73) % Lymph % (Auto) (20-40) % [place] % (Auto) (2-11) % Eos % (Auto) (0-4) % Baso % (Auto) (0-2) % Lymph # (Auto) (1.2-4.9) X10*3/uL [place] # (Auto) (0.1-1.2) X10*3/uL Eos # (Auto) (0.0-0.4) X10*3/uL Baso # (Auto) (0.0-0.2) X10*3/uL Abs Immat Gran (auto) (0.00-0.03) X10*3/uL Absolute Neuts (auto) (2.0-8.3) X10*3/uL Absolute Nucleated RBC (0.0-0.012) X10*3/uL Nucleated RBC % (auto) (0.0-0.2) /100WBC PT (10.8-13.0) SEC INR (0.9-1.1) APTT (24.1-38.0) SEC Sodium (135-145) mmol/L Potassium (3.3-5.1) mmol/l Chloride (96-108) mmol/L Carbon Dioxide (22-29) mmol/L Anion Gap (12-20) BUN (9-16) mg/dL Creatinine (0.5-1.4) mg/dL Estim Creat Clear Calc Estimated GFR Random Glucose (60-115) mg/dL Calcium (8.4-10.2) mg/dL Magnesium 2.3 (1.6-2.6) mg/dL Total Bilirubin (0.0-1.0) mg/dL AST (5-31) U/L ALT (0-31) U/L Alkaline Phosphatase (39-117) U/L Troponin I High Sens 12.0 (<3.5-17.0) ng/L Total Protein (6.5-8.0) g/dL Albumin (3.5-5.0) g/dL Urine Color Urine Appearance Urine pH (5.0-8.0) Ur Specific Stokes (1.005-1.025) Urine Protein (NEG-TRACE) MG/DL Urine Glucose (UA) (NEG) MG/DL Urine Ketones (NEG) MG/DL Urine Blood (NEG) Urine Nitrite (NEG) Ur Leukocyte Esterase (NEG) Urine RBC (0) /HPF Urine WBC (0-4) /HPF Ur Squamous Epith Cells /LPF Urine Bacteria /LPF Coronavirus (PCR) (Negative) Influenza Type A (PCR) (Negative) Influenza Type B (PCR) (Negative) RSV RNA Qual (PCR) (Negative) <Ayan Angela [employer] DUMPER OPERATOR - Last Filed: 09/23/20 12:48> Lab Results 09/21/20 09/21/20 09/21/20 Range/Units 11:41 12:02 12:02 WBC (4.8-10.8) X10*3/uL RBC (4.20-5.50) X10*6/uL Hgb (12.0-16.0) g/dl Hct (37-47) % MCV (80-98) fL MCH (27.0-33.0) pg MCHC (31.0-35.0) g/dl RDW (11.0-16.0) % Plt Count (160-400) X10*3/uL MPV (9.4-12.3) fL Immature Gran % (Auto) (0.0-0.4) % Neut % (Auto) (45-73) % Lymph % (Auto) (20-40) % [place] % (Auto) (2-11) % Eos % (Auto) (0-4) % Baso % (Auto) (0-2) % Lymph # (Auto) (1.2-4.9) X10*3/uL [place] # (Auto) (0.1-1.2) X10*3/uL Eos # (Auto) (0.0-0.4) X10*3/uL Baso # (Auto) (0.0-0.2) X10*3/uL Abs Immat Gran (auto) (0.00-0.03) X10*3/uL Absolute Neuts (auto) (2.0-8.3) X10*3/uL Absolute Nucleated RBC (0.0-0.012) X10*3/uL Nucleated RBC % (auto) (0.0-0.2) /100WBC PT 13.6 H (10.8-13.0) SEC INR 1.1 (0.9-1.1) APTT 30.8 (24.1-38.0) SEC Sodium 143 (135-145) mmol/L Potassium 3.6 (3.3-5.1) mmol/l Chloride 106 (96-108) mmol/L Carbon Dioxide 25 (22-29) mmol/L Anion Gap 16 (12-20) BUN 16 (9-16) mg/dL Creatinine 0.78 (0.5-1.4) mg/dL Estim Creat Clear Calc 41.5 Estimated GFR > 60 Random Glucose 105 (60-115) mg/dL Calcium 8.9 (8.4-10.2) mg/dL Magnesium 1.0 L* (1.6-2.6) mg/dL Total Bilirubin 0.5 (0.0-1.0) mg/dL AST 11 (5-31) U/L ALT 8 (0-31) U/L Alkaline Phosphatase 76 (39-117) U/L Troponin I High Sens (<3.5-17.0) ng/L Total Protein 6.6 (6.5-8.0) g/dL Albumin 3.9 (3.5-5.0) g/dL Urine Color Urine Appearance Urine pH (5.0-8.0) Ur Specific Stokes (1.005-1.025) Urine Protein (NEG-TRACE) MG/DL Urine Glucose (UA) (NEG) MG/DL Urine Ketones (NEG) MG/DL Urine Blood (NEG) Urine Nitrite (NEG) Ur Leukocyte Esterase (NEG) Urine RBC (0) /HPF Urine WBC (0-4) /HPF Ur Squamous Epith Cells /LPF Urine Bacteria /LPF Coronavirus (PCR) NEGATIVE (Negative) Influenza Type A (PCR) NEGATIVE (Negative) Influenza Type B (PCR) NEGATIVE (Negative) RSV RNA Qual (PCR) NEGATIVE (Negative) 09/21/20 09/21/20 09/21/20 Range/Units 12:02 12:02 13:40 WBC 10.2 (4.8-10.8) X10*3/uL RBC 4.04 L (4.20-5.50) X10*6/uL Hgb 12.6 (12.0-16.0) g/dl Hct 38.2 (37-47) % MCV 94.6 (80-98) fL MCH 31.2 (27.0-33.0) pg MCHC 33.0 (31.0-35.0) g/dl RDW 12.2 (11.0-16.0) % Plt Count 244 (160-400) X10*3/uL MPV 9.5 (9.4-12.3) fL Immature Gran % (Auto) 0.2 (0.0-0.4) % Neut % (Auto) 63.8 (45-73) % Lymph % (Auto) 28.0 (20-40) % [place] % (Auto) 7.1 (2-11) % Eos % (Auto) 0.5 (0-4) % Baso % (Auto) 0.4 (0-2) % Lymph # (Auto) 2.9 (1.2-4.9) X10*3/uL [place] # (Auto) 0.7 (0.1-1.2) X10*3/uL Eos # (Auto) 0.1 (0.0-0.4) X10*3/uL Baso # (Auto) 0.0 (0.0-0.2) X10*3/uL Abs Immat Gran (auto) 0.02 (0.00-0.03) X10*3/uL Absolute Neuts (auto) 6.5 (2.0-8.3) X10*3/uL Absolute Nucleated RBC 0.000 (0.0-0.012) X10*3/uL Nucleated RBC % (auto) 0.0 (0.0-0.2) /100WBC PT (10.8-13.0) SEC INR (0.9-1.1) APTT (24.1-38.0) SEC Sodium (135-145) mmol/L Potassium (3.3-5.1) mmol/l Chloride (96-108) mmol/L Carbon Dioxide (22-29) mmol/L Anion Gap (12-20) BUN (9-16) mg/dL Creatinine (0.5-1.4) mg/dL Estim Creat Clear Calc Estimated GFR Random Glucose (60-115) mg/dL Calcium (8.4-10.2) mg/dL Magnesium (1.6-2.6) mg/dL Total Bilirubin (0.0-1.0) mg/dL AST (5-31) U/L ALT (0-31) U/L Alkaline Phosphatase (39-117) U/L Troponin I High Sens 8.1 (<3.5-17.0) ng/L Total Protein (6.5-8.0) g/dL Albumin (3.5-5.0) g/dL Urine Color YELLOW Urine Appearance CLEAR Urine pH 7.0 (5.0-8.0) Ur Specific Stokes 1.010 (1.005-1.025) Urine Protein NEG (NEG-TRACE) MG/DL Urine Glucose (UA) NEG (NEG) MG/DL Urine Ketones NEG (NEG) MG/DL Urine Blood NEG (NEG) Urine Nitrite NEG (NEG) Ur Leukocyte Esterase NEG (NEG) Urine RBC 0 (0) /HPF Urine WBC 1-4 (0-4) /HPF Ur Squamous Epith Cells 1+ /LPF Urine Bacteria NONE /LPF Coronavirus (PCR) (Negative) Influenza Type A (PCR) (Negative) Influenza Type B (PCR) (Negative) RSV RNA Qual (PCR) (Negative) 09/21/20 09/21/20 Range/Units 16:23 16:23 WBC (4.8-10.8) X10*3/uL RBC (4.20-5.50) X10*6/uL Hgb (12.0-16.0) g/dl Hct (37-47) % MCV (80-98) fL MCH (27.0-33.0) pg MCHC (31.0-35.0) g/dl RDW (11.0-16.0) % Plt Count (160-400) X10*3/uL MPV (9.4-12.3) fL Immature Gran % (Auto) (0.0-0.4) % Neut % (Auto) (45-73) % Lymph % (Auto) (20-40) % [place] % (Auto) (2-11) % Eos % (Auto) (0-4) % Baso % (Auto) (0-2) % Lymph # (Auto) (1.2-4.9) X10*3/uL [place] # (Auto) (0.1-1.2) X10*3/uL Eos # (Auto) (0.0-0.4) X10*3/uL Baso # (Auto) (0.0-0.2) X10*3/uL Abs Immat Gran (auto) (0.00-0.03) X10*3/uL Absolute Neuts (auto) (2.0-8.3) X10*3/uL Absolute Nucleated RBC (0.0-0.012) X10*3/uL Nucleated RBC % (auto) (0.0-0.2) /100WBC PT (10.8-13.0) SEC INR (0.9-1.1) APTT (24.1-38.0) SEC Sodium (135-145) mmol/L Potassium (3.3-5.1) mmol/l Chloride (96-108) mmol/L Carbon Dioxide (22-29) mmol/L Anion Gap (12-20) BUN (9-16) mg/dL Creatinine (0.5-1.4) mg/dL Estim Creat Clear Calc Estimated GFR Random Glucose (60-115) mg/dL Calcium (8.4-10.2) mg/dL Magnesium 2.3 (1.6-2.6) mg/dL Total Bilirubin (0.0-1.0) mg/dL AST (5-31) U/L ALT (0-31) U/L Alkaline Phosphatase (39-117) U/L Troponin I High Sens 12.0 (<3.5-17.0) ng/L Total Protein (6.5-8.0) g/dL Albumin (3.5-5.0) g/dL Urine Color Urine Appearance Urine pH (5.0-8.0) Ur Specific Stokes (1.005-1.025) Urine Protein (NEG-TRACE) MG/DL Urine Glucose (UA) (NEG) MG/DL Urine Ketones (NEG) MG/DL Urine Blood (NEG) Urine Nitrite (NEG) Ur Leukocyte Esterase (NEG) Urine RBC (0) /HPF Urine WBC (0-4) /HPF Ur Squamous Epith Cells /LPF Urine Bacteria /LPF Coronavirus (PCR) (Negative) Influenza Type A (PCR) (Negative) Influenza Type B (PCR) (Negative) RSV RNA Qual (PCR) (Negative) <Nba Madera MD - Last Filed: 09/28/20 11:04> ABG Data Attestation: I personally reviewed and interpreted this ABG as follows: <Ayan Angela NP - Last Filed: 09/23/20 12:48> Imaging Data Chest x-ray: Radiologist's impression: [address] [id number] ReportSigned Patient: Prema Carpenter RMR#: [id number]: 2Acct:[id number]/Sex: 80 / FADM Date: 09/21/20Loc: [facility]: Ordering Physician: Ayan Angela NP Date of Service: 09/21/20 Procedure(s): XR chest 1V Accession Number(s): [id number] cc: Ayan Angela NP~ EXAMINATION: XR CHEST CLINICAL INFORMATION: Chest pain COMPARISON: Previous chest x-ray April 2019 TECHNIQUE: Frontal view of the chest was obtained. FINDINGS: The cardiac and mediastinal contours are normal. The lungs are clear. There is no pleural effusion or pneumothorax. There are degenerative changes of the spine. XR/XR chest 1V IMPRESSION: No evidence for acute disease in the chest. Dictated By:RHONDA BOLANOS MDSigned By:<Electronically signed by RHONDA BOLANOS MD in [place]>09/21/20 1143 DD/ 1116TD/TT: Outreach Coordinator: KENYA <Ayan Angela NP - Last Filed: 09/23/20 12:48> ECG Data ECG #1: Interpretation: Sinus rhythm with Premature supraventricular complexes Minimal voltage criteria for LVH, may be normal variant Nonspecific T wave abnormality Abnormal ECG When compared with ECG of 15-AUG-2020 17:34, No significant change was found <Ayan Angela NP - Last Filed: 09/23/20 12:48> Discharge Plan Discharge Clinical Impression: Atypical chest pain, Acute upper respiratory infection, Acute otalgia, Hypomagnesemia <Ayan Angela NP - Last Filed: 09/23/20 12:48> Patient Disposition: Home, Self-Care <Ayan Angela NP - Last Filed: 09/23/20 12:48> Instructions: Chest Pain (ED), Earache (ED), Hypomagnesemia (ED) <Ayan Angela NP - Last Filed: 09/23/20 12:48> Additional Instructions: Your blood work show a magnesium level of 1 and you were given replacement the repeat level was within normal limits (2.3) Otherwise her workup was overall stable The ear pain and dizziness that have been from the the ear is likely related to the swollen ear drum that you have there is no signs of infection at this time This is likely from a mild upper respiratory infection [id number] decongestants Her COVID test was negative Your chest x-ray was negative today Return if any concerns or worsening symptoms Otherwise follow up with her primary care doctor as discussed Thank you <Ayan Angela NP - Last Filed: 09/23/20 12:48> Prescriptions: Continued ferrous sulfate 325 mg (65 mg iron) tablet 1 tab PO BID RF: 0 No Action tramadol 50 mg tablet 50 mg PO Q8H PRN (Reason: pain) Qty: 20 RF: 0 gabapentin 300 mg capsule 1 cap PO BID RF: 0 omeprazole 20 mg capsule,delayed release(DR/EC) 1 cap PO BID RF: 0 nifedipine 60 mg tablet extended release 30 mg PO DAILY RF: 0 <Ayan Angela NP - Last Filed: 09/23/20 12:48> Referrals: ED Physician,Generic [Physician] - 2 days (Primary care doctor) <Ayan Angela NP - Last Filed: 09/23/20 12:48> Interventions: ED Discharge Assessment Last Done: 09/21/20 17:52 <Ayan Angela NP - Last Filed: 09/23/20 12:48> Discharge Date/Time: 09/21/20 18:08 <Ayan Angela NP - Last Filed: 09/23/20 12:48>
--- NOTE | 2020-09-21 12:00 | PC.NURSE ---
ekg performed, covid swab performed, cxr performed
[2020-09-21 12:08] LABS: MANUAL DIFF FLAG NO
[2020-09-21] MEDS: 0.9 % Sodium Chloride 500 ML IV (12:08)
--- NOTE | 2020-09-21 12:09 | PC.NURSE ---
iv inserted, labs drawn, medicated per order, will continue to monitor.
--- NOTE | 2020-09-21 12:09 | PC.NURSE ---
beny called and stated that her grandmothers iv sites have a tendency of blowing within an hour or so, she stated that they have had to put a line in the neck in the past. beny would like to be called with any questions and updates, the patient verified that this was ok.
[2020-09-21 12:10] LABS: Basophils Percent Auto 0.4 % (0-2); Eosinophils Absolute Auto 0.1 X10*3/uL (0.0-0.4); Eosinophils Percent Auto 0.5 % (0-4); Hematocrit 38.2 % (37-47); Hemoglobin 12.6 g/dl (12.0-16.0); Imm Gran Abs Auto 0.02 X10*3/uL (0.00-0.03); Imm Gran Pct Auto 0.2 % (0.0-0.4); Lymphocytes Absolute Auto 2.9 X10*3/uL (1.2-4.9); Mean Corpuscular Hemoglobin 31.2 pg (27.0-33.0); Mean Corpuscular Volume 94.6 fL (80-98); Mean Platelet Volume 9.5 fL (9.4-12.3); Monocytes Absolute Auto 0.7 X10*3/uL (0.1-1.2); Monocytes Percent Auto 7.1 % (2-11); Neutrophils Absolute Auto 6.5 X10*3/uL (2.0-8.3); Neutrophils Percent Auto 63.8 % (45-73); Platelet Count 244 X10*3/uL (160-400); Red Blood Count 4.04 X10*6/uL (4.20-5.50); Red Cell Distribution Width 12.2 % (11.0-16.0); White Blood Count 10.2 X10*3/uL (4.8-10.8)
[2020-09-21 12:15] LABS: INTERNATIONAL NORM RATIO 1.1 (0.9-1.1); Prothrombin Time 13.6 SEC (10.8-13.0)
[2020-09-21 12:18] LABS: Partial Thromboplastin Time 30.8 SEC (24.1-38.0)
--- NOTE | 2020-09-21 12:24 | PC.NURSE ---
cookie called and stated she forgot to tell us that her grandmothers pcp recently and she has not been reassigned to a new one as of yet, also she has recent unsteady gait at times with a c/o leg numbness.
[2020-09-21 12:26] LABS: Influenza A PCR NEGATIVE (Negative); Influenza B PCR NEGATIVE (Negative); Resp Syncy Virus RNA Qual PCR NEGATIVE (Negative); SARS COV2 PCR INHOUSE NEGATIVE (Negative)
[2020-09-21 12:36] LABS: Troponin-I High Sensitivity 8.1 ng/L (<3.5-17.0)
[2020-09-21 12:47] LABS: Alanine Aminotransferase 8 U/L (0-31); Albumin Level 3.9 g/dL (3.5-5.0); Alkaline Phosphatase 76 U/L (39-117); Anion Gap 16 (12-20); Aspartate Amino Transferase 11 U/L (5-31); Bilirubin Total 0.5 mg/dL (0.0-1.0); Blood Urea Nitrogen 16 mg/dL (9-16); Calcium 8.9 mg/dL (8.4-10.2); Carbon Dioxide 25 mmol/L (22-29); Chloride 106 mmol/L (96-108); Creatinine Clr Calc Pharmacy 41.5; Estimated Glomerular Filt Rate > 60; Glucose Random 105 mg/dL (60-115); Potassium 3.6 mmol/l (3.3-5.1); Sodium 143 mmol/L (135-145); Total Protein 6.6 g/dL (6.5-8.0)
[2020-09-21] MEDS: Magnesium Sulfate/H2O 2 GM/50 ML PIGGYBACK IV (13:44)
[2020-09-21 13:45] VITALS: BP 150/71; PULSE 74; RESP 18; TEMP 36.9; O2SAT 97
--- NOTE | 2020-09-21 13:48 | PC.NURSE ---
pt ambulated to bathroom-steady gait noted at this time, urine obtained, diagnostic cardiac sonographer nsr, vitals stable, pt medicated per order, pt currently playing games on ipad, will continue to monitor.
[2020-09-21 14:07] LABS: Glucose Urine UA NEG (NEG); Leukocyte Esterase Urine NEG (NEG); Nitrite Urine NEG (NEG); Urine Blood NEG (NEG); Urine Ketones NEG (NEG); Urine Protein NEG (NEG-TRACE)
[2020-09-21 14:09] LABS: Appearance Urine CLEAR; Color Urine YELLOW
[2020-09-21 14:26] LABS: RBC Urine 0 /HPF (0); Squamous Epithelial Cell Urine 1+ /LPF
[2020-09-21 16:01] VITALS: BP 135/45; PULSE 81; RESP 12; O2SAT 98
[2020-09-21 16:53] LABS: Magnesium 2.3 mg/dL (1.6-2.6)
== END 2020-09-21 18:08 | disposition home or self-care (01) ==
PROVIDERS: Nurse Practitioner Primary Care; Emergency Provider Emergency Medicine
DX: R07.89 Other chest pain (principal); H92.03 Otalgia, bilateral; R51.9 Headache, unspecified; J06.9 Acute upper respiratory infection, unspecified; E83.42 Hypomagnesemia; Z20.822 Contact with and (suspected) exposure to COVID-19; Z79.899 Other long term (current) drug therapy
CPT/HCPCS: 0241U; 36415; 71045; 80053; 81001; 83735; 84484; 85025; 85610; 85730; 93005; 96361; 96365; 96366; 99284; J3475

== ENCOUNTER 2020-10-21 08:04 | Emergency (ER) | payer OTHER, SELFPAY ==
--- NOTE | ~2020-10-21 | CT_ITS ---
EXAMINATION: CT HEAD WITHOUT CONTRAST CT CERVICAL SPINE WITHOUT CONTRAST CLINICAL INFORMATION: Dizziness, left-sided numbness. COMPARISON: 08/15/2020 CT head TECHNIQUE: Contiguous axial imaging of the head was performed without the administration of IV contrast. Axial multidetector volumetric images were also performed through the cervical spine without contrast. Multiplanar reconstructed images in coronal and sagittal orientations were submitted. DOSE: 617 mGy-cm FINDINGS: HEAD: There is no evidence of acute intracranial hemorrhage or territorial infarction. No abnormal mass-effect or midline shift. No extra-axial fluid collections. [place] to white matter differentiation is well preserved. No evidence of territorial infarction. There is mild cerebral volume loss. Patchy areas of hypoattenuation in the deep white matter likely reflecting chronic microangiopathy. Status post lens extraction. No acute calvarial fracture. The sinuses and mastoid air cells are clear. CERVICAL SPINE: Vertebral body heights are normal. No acute fracture is seen. Vertebral alignment is normal. No subluxation. The craniocervical and atlantoaxial articulations are maintained. Cervical spondylosis, with the most prominent changes of xigfmurf-tm-xtvoua disc degeneration at C5-C6, C6-C7. There appears to be a posterior disc herniation at C4-C5. Posterior disc herniation at C5-C6, especially in the central/left paracentral region. There is left neural foramen narrowing. Disc osteophyte complex at C6-C7, left neural foramen narrowing. No significant paravertebral soft tissue swelling. Hypodense foci in the bilateral thyroid lobes, suboptimally evaluated on CT. Imaged portions of the lung apices are clear. CT/CT head/brain wo con IMPRESSION: 1. No CT evidence of acute intracranial hemorrhage or territorial infarction. 2. Chronic changes in the brain, as detailed above. 3. No evidence of acute fracture or malalignment in the cervical spine. 4. Cervical spondylosis. Rawbxpxw-my-zquayk C5-C6, C6-C7 disc degeneration. 5. Apparent posterior disc herniations at C4-C5, C5-C6, C6-C7. Left neural foramen at C5-C6, C6-C7. Further evaluation with MRI as clinically warranted.
--- NOTE | ~2020-10-21 | CT_ITS ---
EXAMINATION: CT HEAD WITHOUT CONTRAST CT CERVICAL SPINE WITHOUT CONTRAST CLINICAL INFORMATION: Dizziness, left-sided numbness. COMPARISON: 08/15/2020 CT head TECHNIQUE: Contiguous axial imaging of the head was performed without the administration of IV contrast. Axial multidetector volumetric images were also performed through the cervical spine without contrast. Multiplanar reconstructed images in coronal and sagittal orientations were submitted. DOSE: 617 mGy-cm FINDINGS: HEAD: There is no evidence of acute intracranial hemorrhage or territorial infarction. No abnormal mass-effect or midline shift. No extra-axial fluid collections. [place] to white matter differentiation is well preserved. No evidence of territorial infarction. There is mild cerebral volume loss. Patchy areas of hypoattenuation in the deep white matter likely reflecting chronic microangiopathy. Status post lens extraction. No acute calvarial fracture. The sinuses and mastoid air cells are clear. CERVICAL SPINE: Vertebral body heights are normal. No acute fracture is seen. Vertebral alignment is normal. No subluxation. The craniocervical and atlantoaxial articulations are maintained. Cervical spondylosis, with the most prominent changes of vnsniqib-ah-vvkekq disc degeneration at C5-C6, C6-C7. There appears to be a posterior disc herniation at C4-C5. Posterior disc herniation at C5-C6, especially in the central/left paracentral region. There is left neural foramen narrowing. Disc osteophyte complex at C6-C7, left neural foramen narrowing. No significant paravertebral soft tissue swelling. Hypodense foci in the bilateral thyroid lobes, suboptimally evaluated on CT. Imaged portions of the lung apices are clear. CT/CT cervical spine wo con IMPRESSION: 1. No CT evidence of acute intracranial hemorrhage or territorial infarction. 2. Chronic changes in the brain, as detailed above. 3. No evidence of acute fracture or malalignment in the cervical spine. 4. Cervical spondylosis. Zwsigyon-je-ozhvfo C5-C6, C6-C7 disc degeneration. 5. Apparent posterior disc herniations at C4-C5, C5-C6, C6-C7. Left neural foramen at C5-C6, C6-C7. Further evaluation with MRI as clinically warranted.
[2020-10-21 08:06] VITALS: BP 209/88; PULSE 65; RESP 18; TEMP 36.7; O2SAT 98; BMI 27.4
--- NOTE | 2020-10-21 09:57 | ECG_ITS ---
Test Reason : WEAKNESS Blood Pressure : / mmHG Vent. Rate : 065 BPM Atrial Rate : 065 BPM P-R Int : 186 ms QRS Dur : 084 ms QT Int : 430 ms P-R-T Axes : 121 143 104 degrees QTc Int : 447 ms Suspect limb lead reversal, interpretation assumes no reversal Unusual P axis, possible ectopic atrial rhythm Left posterior fascicular block Possible Inferior infarct , age undetermined Abnormal ECG When compared with ECG of 21-SEP-2020 11:21, Ectopic atrial rhythm has replaced Sinus rhythm Left posterior fascicular block is now Present Repeat EKG Referred By: Joyce Ramires Electronically Signed By:JAVIER ROMANO MD
--- NOTE | 2020-10-21 10:06 | ED_ITS ---
HPI - General Adult General Chief complaint: General Medical Stated complaint: Multiple Complaints Time Seen by Provider: 10/21/20 09:56 Source: patient Mode of arrival: ambulatory Limitations: no limitations History of Present Illness HPI narrative: 80 y/o female with history of HTN, iron deficiency anemia, GERD who presents with multiple complaints including intermittent headaches described as ringing in her head that is associated with left arm and hand numbness and weakness. She also reports episodes of dizziness, nausea, palpitations and bilateral leg weakness. This is ongoing since May, she was seen here for similar complaints at that time and diagnosed with carpal tunnel syndrome. She was seen again in July for similar complaints and had a negative CTA head/neck. She was supposed to follow up with her doctor but he . She found a new PCP and her appointment is not until December so she came in for evaluation now. Patient also reports new onset of black stools that stated yesterday. She has had 2 episodes. Not liquid. No abdominal pain. She is on iron and not on any blood thinner. No NSAID use. She is dizzy and has a headache now. MD complaint: headache, dizziness, palpitations, black stool. Onset (ago): month(s) Location: head, chest and lower extremity Radiation: non-radiation Severity: moderate Pain Consistency: intermittent Exacerbating factors: movement Associated symptoms: headaches and weakness Treatments prior to arrival: none Related Data Home Medications Medication Instructions Recorded Confirmed ferrous sulfate 1 tab PO BID 09/21/20 09/21/20 gabapentin 1 cap PO BID 09/21/20 09/21/20 nifedipine 30 mg PO DAILY 09/21/20 09/21/20 omeprazole 1 cap PO BID 09/21/20 09/21/20 Previous Rx's Medication Instructions Recorded tramadol 50 mg PO Q8H PRN #20 tab 06/08/20 hydralazine 25 mg PO TID #90 tab 10/21/20 ondansetron HCl [Zofran] 4 mg PO Q8H PRN #10 tab 10/21/20 Allergies Allergy/AdvReac Type Severity Reaction Status Date / Time latex Allergy Rash Verified 10/21/20 08:12 Latex Gloves Allergy Unknown rash Uncoded 03/16/20 00:00 Anjali spice Allergy Unknown Rash Uncoded 06/07/20 17:34 Review of Systems Review of Systems: Constitutional: No Fever, No Chills ENT/Mouth: No sore throat, No Rhinorrhea, No Swallowing Difficulty Eyes: No Eye Pain, No Swelling, No Redness Cardiovascular: No Chest Pain, No SOB, No Orthopnea, No Edema, +Palpitations Respiratory: No Cough, No Sputum, No Wheezing, No dyspnea Gastrointestinal: + Nausea, No Vomiting, No Diarrhea, No abdominal Pain, No Hematochezia, + Melena Genitourinary: No Dysuria, No Urinary Frequency, No Hematuria Musculoskeletal: No joint pain, + Myalgias Skin: No Skin Lesions, No rash Neuro: + Weakness, + Numbness, + Dizziness,+ Headache Psych: No Anxiety/Panic, No Depression Heme/Lymph: No Bruising, No Lymphadenopathy Endocrine: No Polyuria, No Polydipsia PMFSH Past Medical History Attestation statement: The following information was validated with the patient. Medical History Anemia DVT (deep venous thrombosis) Gastritis GERD (gastroesophageal reflux disease) HTN (hypertension) Renal cyst Social History Social History Alcohol intake: never Smoking Status: Never smoker Advance Directives: No Advance Directives Information Provided: Yes Physical Exam Vital Signs: Vital Signs: Last Vital Signs Temp 97.2 F 10/21/20 14:56 Pulse 65 10/21/20 15:53 Resp 16 10/21/20 14:56 BP 194/77 H 10/21/20 15:53 Pulse Ox 99 10/21/20 14:56 Body Mass Index 27.4 Appearance: Alert. Oriented X3. No acute distress. Eyes: Pupils equal, round and reactive to light. EOMI. No nystagmus. Mild conjunctival pallor. ENT: Pharynx normal. Neck: Normal inspection. Neck supple. CVS: Normal heart rate and rhythm. Pulses normal. Respiratory: No respiratory distress. Breath sounds normal. Abdomen: Soft and nontender. +BS x4. MELLISA: normal sphincter tone, no tenderness, stool is black Skin: Skin warm and dry. Normal skin color. Normal skin turgor. No rashes. Extremities: No lower extremity edema. Neuro: Oriented X 3. No motor deficit. No sensory deficit. Course Course Course Narrative: 80 y/o presenting with multiple complaints with symptoms that have been ongoing for months. She is very hypertensive on arrival, reports headache and reports taking her nifedipine this morning. She has had poorly controlled HTN on each visit. She denies chest pain or vision changes. Doubt hypertensive emergency. Will monitor BP closely. Will get repeat CT head and include cervical spine as her numbness may be due to cervical radiculoapthy. It is chronic. She reports black stools but is on iron. Will get basic lab workup and EKG. Reevaluation(s) Reevaluation #1: CT head/neck : Cervical spondylosis. Kfskrpwp-im-tyiqaz C5-C6, C6-C7 disc degeneration. Apparent posterior disc herniations at C4-C5, C5-C6, C6-C7. Left neural foramen at C5-C6, C6-C7. Further evaluation with MRI as clinically warranted. Given her symptoms are chronic in nature will defer MRI to outpatient. Her lab workup is unremarkable so far. Heme negative stool with no anemia noted. Troponin 11.4 (was 12 on previous visit). Will repeat in 2-3 hours. Reevaluation #2: Troponin did not increase by 50%. Her BP was back up to 216/83, no dizziness, vision changes or chest pain. Given her persistent poorly controlled HTN (on several visits) will give dose of PO hydralazine and re- evaluate her BP. HR in the 60's which limits some medication classes. BP significantly improved after hydralazine. Will d/c with new Rx for this and plan to f/u with PCP and Neurosurgeon. Stable for d/c. Patient agrees with plan and all questions were answered. Medical Decision Making Lab Data Result diagrams: 10/21/20 11:43 10/21/20 11:43 Labs: Lab Results 10/21/20 10/21/20 10/21/20 Range/Units 11:42 11:42 11:42 WBC (4.8-10.8) X10*3/uL RBC (4.20-5.50) X10*6/uL Hgb (12.0-16.0) g/dl Hct (37-47) % MCV (80-98) fL MCH (27.0-33.0) pg MCHC (31.0-35.0) g/dl RDW (11.0-16.0) % Plt Count (160-400) X10*3/uL MPV (9.4-12.3) fL Immature Gran % (Auto) (0.0-0.4) % Neut % (Auto) (45-73) % Lymph % (Auto) (20-40) % [place] % (Auto) (2-11) % Eos % (Auto) (0-4) % Baso % (Auto) (0-2) % Lymph # (Auto) (1.2-4.9) X10*3/uL [place] # (Auto) (0.1-1.2) X10*3/uL Eos # (Auto) (0.0-0.4) X10*3/uL Baso # (Auto) (0.0-0.2) X10*3/uL Abs Immat Gran (auto) (0.00-0.03) X10*3/uL Absolute Neuts (auto) (2.0-8.3) X10*3/uL Absolute Nucleated RBC (0.0-0.012) X10*3/uL Nucleated RBC % (auto) (0.0-0.2) /100WBC PT 11.7 (10.8-13.0) SEC INR 1.0 (0.9-1.1) APTT 35.1 (24.1-38.0) SEC Hold Blue Top SEE NOTE Sodium (135-145) mmol/L Potassium (3.3-5.1) mmol/L Chloride (96-108) mmol/L Carbon Dioxide (22-29) mmol/L Anion Gap (12-20) BUN (9-16) mg/dL Creatinine (0.5-1.4) mg/dL Estim Creat Clear Calc Estimated GFR Random Glucose (60-115) mg/dL Calcium (8.4-10.2) mg/dL Magnesium (1.6-2.6) mg/dL Total Bilirubin (0.0-1.0) mg/dL Direct Bilirubin (0.0-0.5) mg/dL AST (5-31) U/L ALT (0-31) U/L Alkaline Phosphatase (39-117) U/L Troponin I High Sens (<3.5-17.0) ng/L Total Protein (6.5-8.0) g/dL Albumin (3.5-5.0) g/dL TSH (0.32-4.0) uIU/mL Urine Color YELLOW Urine Appearance CLEAR Urine pH 6.0 (5.0-8.0) Ur Specific [place] 1.015 (1.005-1.025) Urine Protein NEG (NEG-TRACE) MG/DL Urine Glucose (UA) NEG (NEG) MG/DL Urine Ketones NEG (NEG) MG/DL Urine Blood NEG (NEG) Urine Nitrite NEG (NEG) Ur Leukocyte Esterase NEG (NEG) Stool Occult Blood NEG (NEG) Coronavirus (PCR) (Negative) Influenza Type A (PCR) (Negative) Influenza Type B (PCR) (Negative) RSV RNA Qual (PCR) (Negative) Blood Type Antibody Screen 10/21/20 10/21/20 10/21/20 Range/Units 11:42 11:42 11:43 WBC 8.5 (4.8-10.8) X10*3/uL RBC 4.14 L (4.20-5.50) X10*6/uL Hgb 13.0 (12.0-16.0) g/dl Hct 39.4 (37-47) % MCV 95.2 (80-98) fL MCH 31.4 (27.0-33.0) pg MCHC 33.0 (31.0-35.0) g/dl RDW 12.4 (11.0-16.0) % Plt Count 253 (160-400) X10*3/uL MPV 9.7 (9.4-12.3) fL Immature Gran % (Auto) 0.2 (0.0-0.4) % Neut % (Auto) 63.7 (45-73) % Lymph % (Auto) 28.5 (20-40) % [place] % (Auto) 6.0 (2-11) % Eos % (Auto) 1.2 (0-4) % Baso % (Auto) 0.4 (0-2) % Lymph # (Auto) 2.4 (1.2-4.9) X10*3/uL [place] # (Auto) 0.5 (0.1-1.2) X10*3/uL Eos # (Auto) 0.1 (0.0-0.4) X10*3/uL Baso # (Auto) 0.0 (0.0-0.2) X10*3/uL Abs Immat Gran (auto) 0.02 (0.00-0.03) X10*3/uL Absolute Neuts (auto) 5.4 (2.0-8.3) X10*3/uL Absolute Nucleated RBC 0.000 (0.0-0.012) X10*3/uL Nucleated RBC % (auto) 0.0 (0.0-0.2) /100WBC PT (10.8-13.0) SEC INR (0.9-1.1) APTT (24.1-38.0) SEC Hold Blue Top Sodium (135-145) mmol/L Potassium (3.3-5.1) mmol/L Chloride (96-108) mmol/L Carbon Dioxide (22-29) mmol/L Anion Gap (12-20) BUN (9-16) mg/dL Creatinine (0.5-1.4) mg/dL Estim Creat Clear Calc Estimated GFR Random Glucose (60-115) mg/dL Calcium (8.4-10.2) mg/dL Magnesium (1.6-2.6) mg/dL Total Bilirubin (0.0-1.0) mg/dL Direct Bilirubin (0.0-0.5) mg/dL AST (5-31) U/L ALT (0-31) U/L Alkaline Phosphatase (39-117) U/L Troponin I High Sens (<3.5-17.0) ng/L Total Protein (6.5-8.0) g/dL Albumin (3.5-5.0) g/dL TSH 0.87 (0.32-4.0) uIU/mL Urine Color Urine Appearance Urine pH (5.0-8.0) Ur Specific [place] (1.005-1.025) Urine Protein (NEG-TRACE) MG/DL Urine Glucose (UA) (NEG) MG/DL Urine Ketones (NEG) MG/DL Urine Blood (NEG) Urine Nitrite (NEG) Ur Leukocyte Esterase (NEG) Stool Occult Blood (NEG) Coronavirus (PCR) (Negative) Influenza Type A (PCR) (Negative) Influenza Type B (PCR) (Negative) RSV RNA Qual (PCR) (Negative) Blood Type O Positive Antibody Screen NEGATIVE 0210/21/20 10/21/20 Range/Units 11:43 11:43 11:43 WBC (4.8-10.8) X10*3/uL RBC (4.20-5.50) X10*6/uL Hgb (12.0-16.0) g/dl Hct (37-47) % MCV (80-98) fL MCH (27.0-33.0) pg MCHC (31.0-35.0) g/dl RDW (11.0-16.0) % Plt Count (160-400) X10*3/uL MPV (9.4-12.3) fL Immature Gran % (Auto) (0.0-0.4) % Neut % (Auto) (45-73) % Lymph % (Auto) (20-40) % [place] % (Auto) (2-11) % Eos % (Auto) (0-4) % Baso % (Auto) (0-2) % Lymph # (Auto) (1.2-4.9) X10*3/uL [place] # (Auto) (0.1-1.2) X10*3/uL Eos # (Auto) (0.0-0.4) X10*3/uL Baso # (Auto) (0.0-0.2) X10*3/uL Abs Immat Gran (auto) (0.00-0.03) X10*3/uL Absolute Neuts (auto) (2.0-8.3) X10*3/uL Absolute Nucleated RBC (0.0-0.012) X10*3/uL Nucleated RBC % (auto) (0.0-0.2) /100WBC PT (10.8-13.0) SEC INR (0.9-1.1) APTT (24.1-38.0) SEC Hold Blue Top Sodium 142 (135-145) mmol/L Potassium 4.1 (3.3-5.1) mmol/L Chloride 106 (96-108) mmol/L Carbon Dioxide 29 (22-29) mmol/L Anion Gap 11 L (12-20) BUN 17 H (9-16) mg/dL Creatinine 0.83 (0.5-1.4) mg/dL Estim Creat Clear Calc 40.0 Estimated GFR > 60 Random Glucose 84 (60-115) mg/dL Calcium 9.7 D (8.4-10.2) mg/dL Magnesium 2.3 (1.6-2.6) mg/dL Total Bilirubin 0.4 (0.0-1.0) mg/dL Direct Bilirubin < 0.2 (0.0-0.5) mg/dL AST 16 D (5-31) U/L ALT 9 (0-31) U/L Alkaline Phosphatase 86 (39-117) U/L Troponin I High Sens 11.4 (<3.5-17.0) ng/L Total Protein 7.3 (6.5-8.0) g/dL Albumin 4.3 (3.5-5.0) g/dL TSH (0.32-4.0) uIU/mL Urine Color Urine Appearance Urine pH (5.0-8.0) Ur Specific [place] (1.005-1.025) Urine Protein (NEG-TRACE) MG/DL Urine Glucose (UA) (NEG) MG/DL Urine Ketones (NEG) MG/DL Urine Blood (NEG) Urine Nitrite (NEG) Ur Leukocyte Esterase (NEG) Stool Occult Blood (NEG) Coronavirus (PCR) NEGATIVE (Negative) Influenza Type A (PCR) NEGATIVE (Negative) Influenza Type B (PCR) NEGATIVE (Negative) RSV RNA Qual (PCR) NEGATIVE (Negative) Blood Type Antibody Screen 10/21/20 Range/Units 15:17 WBC (4.8-10.8) X10*3/uL RBC (4.20-5.50) X10*6/uL Hgb (12.0-16.0) g/dl Hct (37-47) % MCV (80-98) fL MCH (27.0-33.0) pg MCHC (31.0-35.0) g/dl RDW (11.0-16.0) % Plt Count (160-400) X10*3/uL MPV (9.4-12.3) fL Immature Gran % (Auto) (0.0-0.4) % Neut % (Auto) (45-73) % Lymph % (Auto) (20-40) % [place] % (Auto) (2-11) % Eos % (Auto) (0-4) % Baso % (Auto) (0-2) % Lymph # (Auto) (1.2-4.9) X10*3/uL [place] # (Auto) (0.1-1.2) X10*3/uL Eos # (Auto) (0.0-0.4) X10*3/uL Baso # (Auto) (0.0-0.2) X10*3/uL Abs Immat Gran (auto) (0.00-0.03) X10*3/uL Absolute Neuts (auto) (2.0-8.3) X10*3/uL Absolute Nucleated RBC (0.0-0.012) X10*3/uL Nucleated RBC % (auto) (0.0-0.2) /100WBC PT (10.8-13.0) SEC INR (0.9-1.1) APTT (24.1-38.0) SEC Hold Blue Top Sodium (135-145) mmol/L Potassium (3.3-5.1) mmol/L Chloride (96-108) mmol/L Carbon Dioxide (22-29) mmol/L Anion Gap (12-20) BUN (9-16) mg/dL Creatinine (0.5-1.4) mg/dL Estim Creat Clear Calc Estimated GFR Random Glucose (60-115) mg/dL Calcium (8.4-10.2) mg/dL Magnesium (1.6-2.6) mg/dL Total Bilirubin (0.0-1.0) mg/dL Direct Bilirubin (0.0-0.5) mg/dL AST (5-31) U/L ALT (0-31) U/L Alkaline Phosphatase (39-117) U/L Troponin I High Sens 12.6 (<3.5-17.0) ng/L Total Protein (6.5-8.0) g/dL Albumin (3.5-5.0) g/dL TSH (0.32-4.0) uIU/mL Urine Color Urine Appearance Urine pH (5.0-8.0) Ur Specific [place] (1.005-1.025) Urine Protein (NEG-TRACE) MG/DL Urine Glucose (UA) (NEG) MG/DL Urine Ketones (NEG) MG/DL Urine Blood (NEG) Urine Nitrite (NEG) Ur Leukocyte Esterase (NEG) Stool Occult Blood (NEG) Coronavirus (PCR) (Negative) Influenza Type A (PCR) (Negative) Influenza Type B (PCR) (Negative) RSV RNA Qual (PCR) (Negative) Blood Type Antibody Screen ECG Data Attestation: I personally reviewed and interpreted this ECG as follows: Interpretation: #1 10:20 am - suspect arm lead reversal, HR 65 bpm, 2 different p-wave morphology, normal VT interval, normal QRS, changes from prior consistent with lead reversal #2 13:35 pm - sinus bradycardia, HR 55, q waves in lead III and aVR, no ST segment elevations, normal VT interval, normal QTc & QRS Discharge Plan Discharge Clinical Impression: Poorly-controlled hypertension, Cervical radiculopathy Patient Disposition: Home, Self-Care Instructions: Chronic Hypertension (ED), Cervical Radiculopathy (ED) Additional Instructions: Your blood work today was unremarkable. Your blood pressure has been poorly controlled based on your last 3 visits to the Emergency Room. Recommend following up with your doctor for further medication management of this. Recommend to start taking the prescribed medication to help with your blood pressure. Take this in addition to your Nifedipine. Stick to a low salt diet. Your CT scan showed some abnormalities, including degenerative disc disease and bulging discs in your neck that can be causing your left arm numbness and pain. Recommend following up with a Neurosurgeon for further workup. Recommend Tylenol as needed for pain. Prescriptions: New ondansetron HCl [Zofran] 4 mg tablet 4 mg PO Q8H PRN (Reason: nausea and vomiting) Qty: 10 RF: 0 hydralazine 25 mg tablet 25 mg PO TID Qty: 90 RF: 0 No Action tramadol 50 mg tablet 50 mg PO Q8H PRN (Reason: pain) Qty: 20 RF: 0 ferrous sulfate 325 mg (65 mg iron) tablet 1 tab PO BID RF: 0 gabapentin 300 mg capsule 1 cap PO BID RF: 0 omeprazole 20 mg capsule,delayed release(DR/EC) 1 cap PO BID RF: 0 nifedipine 60 mg tablet extended release 30 mg PO DAILY RF: 0 Referrals: Radha Jade MD [Physician] - 1 week
[2020-10-21 11:52] LABS: MANUAL DIFF FLAG NO
[2020-10-21 11:55] LABS: Basophils Percent Auto 0.4 % (0-2); Eosinophils Absolute Auto 0.1 X10*3/uL (0.0-0.4); Eosinophils Percent Auto 1.2 % (0-4); Hematocrit 39.4 % (37-47); Imm Gran Abs Auto 0.02 X10*3/uL (0.00-0.03); Imm Gran Pct Auto 0.2 % (0.0-0.4); Lymphocytes Absolute Auto 2.4 X10*3/uL (1.2-4.9); Lymphocytes Percent Auto 28.5 % (20-40); Mean Corpuscular Hemoglobin 31.4 pg (27.0-33.0); Mean Corpuscular Volume 95.2 fL (80-98); Mean Platelet Volume 9.7 fL (9.4-12.3); Monocytes Absolute Auto 0.5 X10*3/uL (0.1-1.2); Neutrophils Absolute Auto 5.4 X10*3/uL (2.0-8.3); Neutrophils Percent Auto 63.7 % (45-73); Platelet Count 253 X10*3/uL (160-400); Red Blood Count 4.14 X10*6/uL (4.20-5.50); Red Cell Distribution Width 12.4 % (11.0-16.0); White Blood Count 8.5 X10*3/uL (4.8-10.8)
[2020-10-21 11:56] LABS: Glucose Urine UA NEG (NEG); Leukocyte Esterase Urine NEG (NEG); Nitrite Urine NEG (NEG); Specific Gravity - Urine 1.015 (1.005-1.025); Urine Blood NEG (NEG); Urine Ketones NEG (NEG); Urine Protein NEG (NEG-TRACE)
[2020-10-21 11:57] LABS: OBS1 NEG (NEG)
[2020-10-21 11:58] LABS: Appearance Urine CLEAR; Color Urine YELLOW; OBS Int Ctl Valid YES
[2020-10-21 12:03] LABS: Prothrombin Time 11.7 SEC (10.8-13.0)
[2020-10-21 12:05] LABS: Partial Thromboplastin Time 35.1 SEC (24.1-38.0)
[2020-10-21 12:21] LABS: Alanine Aminotransferase 9 U/L (0-31); Albumin Level 4.3 g/dL (3.5-5.0); Alkaline Phosphatase 86 U/L (39-117); Anion Gap 11 (12-20); Aspartate Amino Transferase 16 U/L (5-31); Bilirubin Direct < 0.2 mg/dL (0.0-0.5); Bilirubin Total 0.4 mg/dL (0.0-1.0); Blood Urea Nitrogen 17 mg/dL (9-16); Calcium 9.7 mg/dL (8.4-10.2); Carbon Dioxide 29 mmol/L (22-29); Chloride 106 mmol/L (96-108); Estimated Glomerular Filt Rate > 60; Glucose Random 84 mg/dL (60-115); Magnesium 2.3 mg/dL (1.6-2.6); Potassium 4.1 mmol/L (3.3-5.1); Sodium 142 mmol/L (135-145); Total Protein 7.3 g/dL (6.5-8.0)
[2020-10-21 12:29] LABS: Troponin-I High Sensitivity 11.4 ng/L (<3.5-17.0)
[2020-10-21 12:41] LABS: TSH reflex Free T4 0.87 uIU/mL (0.32-4.0)
--- NOTE | 2020-10-21 12:48 | ECG_ITS ---
Test Reason : REPEAT Blood Pressure : / mmHG Vent. Rate : 055 BPM Atrial Rate : 055 BPM P-R Int : 168 ms QRS Dur : 084 ms QT Int : 430 ms P-R-T Axes : 063 046 078 degrees QTc Int : 411 ms Sinus bradycardia Nonspecific T wave abnormality Abnormal ECG When compared with ECG of 21-OCT-2020 10:20, Sinus rhythm has replaced Ectopic atrial rhythm Left posterior fascicular block is no longer Present Changes most likely due to corrected arm lead placement Referred By: Joyce Ramires Electronically Signed By:JAVIER ROMANO MD
[2020-10-21 13:38] VITALS: BP 195/85; PULSE 65
[2020-10-21 13:38] LABS: Influenza A PCR NEGATIVE (Negative); Influenza B PCR NEGATIVE (Negative); Resp Syncy Virus RNA Qual PCR NEGATIVE (Negative); SARS COV2 PCR INHOUSE NEGATIVE (Negative)
[2020-10-21 13:47] VITALS: BP 195/85; PULSE 65
[2020-10-21] MEDS: NIFEdipine ER 30 MG TAB.ER.24 PO (13:47)
[2020-10-21 14:56] VITALS: BP 216/83; PULSE 62; RESP 16; TEMP 36.2; O2SAT 99
[2020-10-21 15:51] LABS: Troponin-I High Sensitivity 12.6 ng/L (<3.5-17.0)
[2020-10-21 15:53] VITALS: BP 194/77; PULSE 65
[2020-10-21] MEDS: hydrALAZINE HCl 50 MG TABLET PO (15:53)
[2020-10-21 17:15] VITALS: BP 148/64; PULSE 73; RESP 16; O2SAT 98
== END 2020-10-21 17:51 | disposition home or self-care (01) ==
PROVIDERS: Physician Assistant; Emergency Provider Emergency Medicine Emergency Medical Services; PCP Internal Medicine
DX: M54.12 Radiculopathy, cervical region (principal); R42 Dizziness and giddiness; R20.0 Anesthesia of skin; I10 Essential (primary) hypertension; M62.81 Muscle weakness (generalized); Z20.822 Contact with and (suspected) exposure to COVID-19; Z79.899 Other long term (current) drug therapy; Z86.718 Personal history of other venous thrombosis and embolism
CPT/HCPCS: 0241U; 36415; 70450; 72125; 80048; 80076; 81003; 82272; 83735; 84443; 84484; 85025; 85610; 85730; 86850; 86900; 86901; 93005; 99284

== ENCOUNTER → 2020-11-11 11:20 | Outpatient (BNVA) | payer OTHER, SELFPAY | PROVIDERS: PCP Internal Medicine; Visit Provider Nurse Practitioner Family | DX: R07.89 Other chest pain (principal); R00.2 Palpitations; I10 Essential (primary) hypertension; I49.1 Atrial premature depolarization; R94.31 Abnormal electrocardiogram [ECG] [EKG]; Z79.899 Other long term (current) drug therapy | CPT/HCPCS: 93005; 99212 ==

== ENCOUNTER → 2020-11-21 10:00 | Outpatient (REF) | payer OTHER, MEDICAID, SELFPAY ==
--- NOTE | 2020-11-21 12:15 | ECG_ITS ---
Hook-up date: 2020-11-21 10:09:00 Duration: 46:58:00 Test Indications: PALPS, PAC'S, ABN EKG Medications: 885100 QRS complexes 116 Ventricular ectopics which represent <1 % of total QRS comp. 16314 Supraventricular ectopics which represent 14 % of total QRS comp. * Paced QRS complexs which represent % of total QRS comp. VENTRICULAR ECTOPY 116 Isolated 0 Bigeminal Cycles 0 Couplets 0 Runs 0 Beats in Runs * Beats LONGEST at * BPM at :: -- * Beats FASTEST at * BPM at :: -- SUPRAVENTRICULAR ECTOPY 40993 Isolated 69 Couplets 8 Runs 28 Beats in Runs 5 Beats LONGEST at 120 BPM at 12:04:21 2020-11-21 3 Beats FASTEST at 122 BPM at 15:37:15 2020-11-21 HEART RATES 53 MIN at 11:58:57 2020-11-21 71 AVG 110 MAX at 15:39:37 2020-11-21 LONGEST RR 1.3840 secs at 20:05:03 2020-11-21 S-T LEVELS Channel 1 - 128 mm at 10:09:00 2020-11-21 - 128 mm at 10:09:00 2020-11-21 Channel 2 - 128 mm at 10:09:00 2020-11-21 - 128 mm at 10:09:00 2020-11-21 Channel 3 - 128 mm at 02:92:81 -- - 128 mm at 02:92:81 Underlying rhythm is sinus; Average ventricular rate 71/min; Frequent supraventricular ectopy- 15% of total; mostly isolated with very few brief runs; Rare, isolated ventricular ectopy; Several symptoms noted in diary- fast heart beat, SOB, neck pain, back pain; 'fast heart beat' could be from the ectopy. Referred By: Tamy Chandler Overread By: MATIAS NDIAYE
== END ==
LOC: HO.CARD 10:00
PROVIDERS: PCP Internal Medicine; Visit Provider Nurse Practitioner Family
DX: R00.2 Palpitations (principal); I49.1 Atrial premature depolarization; R94.31 Abnormal electrocardiogram [ECG] [EKG]
CPT/HCPCS: 93226

== ENCOUNTER 2020-12-05 06:46 | Emergency (ER) | payer OTHER, MEDICAID, SELFPAY ==
--- NOTE | 2020-12-05 | ECG_ITS ---
Test Reason : CP Blood Pressure : / mmHG Vent. Rate : 072 BPM Atrial Rate : 072 BPM P-R Int : 154 ms QRS Dur : 080 ms QT Int : 412 ms P-R-T Axes : 074 056 065 degrees QTc Int : 451 ms Sinus rhythm with Premature atrial complexes Minimal voltage criteria for LVH, may be normal variant Nonspecific T wave abnormality Abnormal ECG When compared with ECG of 21-OCT-2020 13:35, Premature atrial complexes are now Present Referred By: Suni Jay Electronically Signed By:MATIAS NDIAYE
--- NOTE | ~2020-12-05 | CT_ITS ---
EXAMINATION: CT ANGIOGRAM OF THE CHEST WITH AND WITHOUT CONTRAST (CT PULMONARY ANGIOGRAM FOR PE) CLINICAL INFORMATION: Reason for Exam chest pain hx of PE COMPARISON: Chest x-ray 09/21/2019 oh TECHNIQUE: Prior to contrast administration, noncontrast localization images were obtained. Subsequently, multidetector volumetric imaging was performed from the thoracic inlet to below the diaphragms following the administration of 80 mL Omnipaque 350 intravenous contrast. No contrast reaction reported Sagittal, coronal, and MIP oblique sagittal reformatted images were obtained on the CT workstation, uploaded to PACS, and reviewed. This CT examination was performed using dose optimization techniques as appropriate, variously including the following: *Automated exposure control *Adjustment of mA and/or kV according to patient size (this includes techniques or standardized protocols for targeted exams where dose is matched to indication/reason for exam; i.e. extremities or head) *Use of iterative reconstruction technique Total exam dose-length product 277 mGy-cm FINDINGS: QUALITY OF STUDY/CONTRAST BOLUS: Satisfactory. PULMONARY ARTERIES: No central or segmental pulmonary emboli. THORACIC AORTA: No aneurysm or dissection. LUNG: The lungs are well-expanded. There are several nodules seen in the right upper lobe with largest measuring 6 mm. This mild haziness in both upper lobes There is bandlike atelectasis in both lung bases. PLEURA: There is bilateral small pleural effusions. No pleural calcification or pneumothorax seen. MEDIASTINUM: The thyroid lobes are symmetric and normal. The central trachea and the bronchi widely patent. No evidence of septal bowing or right heart strain seen. No abnormal size mediastinal or hilar lymph nodes seen. CHEST WALL/AXILLA: No axillary or internal mammary lymphadenopathy. OSSEOUS STRUCTURES: There is no lytic or sclerotic process seen. UPPER ABDOMEN: Visualized liver, spleen, pancreas and bilateral adrenal glands are unremarkable. There is a 1 cm exophytic cyst upper pole left kidney. There is anechoic cyst in the upper pole left kidney measuring 1.3 cm. No reflux of contrast into the hepatic veins to suggest elevated right heart pressures. CT/CT angio chest PE protocol IMPRESSION: No evidence of PE. No evidence aortic dissection or aneurysm. Bilateral small pleural effusions with bibasilar platelike atelectasis. Nonspecific mild haziness in both upper lobes. Small nodules right upper lobe, largest measuring 6 mm. VTE: negative
[2020-12-05 06:57] VITALS: BP 202/92; PULSE 60; RESP 16; O2SAT 97; BMI 27.9
--- NOTE | 2020-12-05 07:00 | ED_ITS ---
HPI - Chest Pain General Chief Complaint: Chest Pain Stated Complaint: Chest pain Time Seen by Provider: 12/05/20 06:49 Source: patient and old records reviewed Mode of arrival: ambulatory Limitations: no limitations History of Present Illness HPI narrative: 44 yo female with hx of HTN, HPL intermittent bouts of chest pain - ECHO in 09/14 normal EF 60%, cardiac cath 2019 normal coronaries, but also massive PE in 2017 resulting in cardiac arrest - unsure why she had VTE no longer on AC therapy presents with chest pain and nausea/dyspnea since 4am - given recent cath unlikely to be ACS will need two troponins as well as CTA:PE to r/o VTE - dispo per results and findings. MD complaint: chest pain Pertinent past history: other (PE) Onset (ago): hour(s) (3 hours ago at 4am) Timing of current episode: constant Prior episodes: Yes Onset: during rest Pain location: substernal Pain radiation: left arm Severity: moderate Quality: tightness Relieving factors: nothing Exacerbating factors: nothing Associated symptoms: nausea and dyspnea Treatment prior to arrival: none Related Data Home Medications Medication Instructions Recorded Confirmed ferrous sulfate 1 tab PO BID 09/21/20 11/11/20 gabapentin 1 cap PO BID 09/21/20 11/11/20 omeprazole 1 cap PO BID 09/21/20 11/11/20 acetaminophen 500 mg tablet 500 mg PO QID PRN 11/11/20 11/11/20 ascorbate calcium (vitamin C) 500 500 mg PO DAILY 11/11/20 11/11/20 mg tablet atorvastatin 80 mg tablet 80 mg PO DAILY 11/11/20 11/11/20 cholecalciferol (vitamin D3) 25 25 mcg PO DAILY 11/11/20 11/11/20 mcg (1,000 unit) capsule Previous Rx's Medication Instructions Recorded hydralazine 25 mg PO TID #90 tab 10/21/20 ondansetron HCl [Zofran] 4 mg PO Q8H PRN #10 tab 10/21/20 diltiazem HCl 120 mg 120 mg PO DAILY #30 cap 11/11/20 capsule,extended release 24 hr Allergies Allergy/AdvReac Type Severity Reaction Status Date / Time latex Allergy Rash Verified 10/21/20 08:12 Latex Gloves Allergy Unknown rash Uncoded 03/16/20 00:00 Anjali spice Allergy Unknown Rash Uncoded 06/07/20 17:34 Review of Systems Review of Systems: Constitutional : No Weight loss, No Fever, No Chills ENT/Mouth : No sore throat, No Rhinorrhea Eyes: No Eye Pain, No Swelling Cardiovascular : pos Chest Pain, pos SOB, no Dyspnea on Exertion, No Orthopnea, No Edema, No Palpitations Respiratory : No Cough, No Sputum Gastrointestinal : pos Nausea, No Vomiting, No Diarrhea, No abdominal Pain, No Hematochezia, No Melena Genitourinary : No Dysuria, No Urinary Frequency Musculoskeletal : No joint pain, No Myalgias, No Joint Swelling Skin : No Skin Lesions, No rash Neuro : No Weakness, No Numbness, No Dizziness, No Headache Psych : No Anxiety/Panic, No Depression Heme/Lymph: No Bruising, No Lymphadenopathy Endocrine : No Polyuria, No Polydipsia All other systems reviewed and are negative [facility], LAT[facility] Past Medical History Attestation statement: The following information was validated with the patient. Medical History Abnormal EKG Anemia Chest discomfort DVT (deep venous thrombosis) Gastritis GERD (gastroesophageal reflux disease) HTN (hypertension) PAC (premature atrial contraction) Pulmonary embolism Renal cyst Family History Family History (Updated 11/11/20 @ 12:54 by DEBRA Becerra) Father No problems noted. Mother No problems noted. Social History Social History Alcohol intake: never Smoking Status: Never smoker Use of substances other than those prescribed or required for medical reasons: No Advance Directives: Yes Advance Directives Information Provided: Yes Advance Directives on File: No Physical Exam Vital Signs: Vital Signs: Last Vital Signs Temp 98.0 F 12/05/20 12:00 Pulse 70 12/05/20 13:52 Resp 16 12/05/20 13:52 BP 179/65 H 12/05/20 12:00 Pulse Ox 97 12/05/20 13:52 Body Mass Index 27.9 Appearance: Alert. Oriented X3. No acute distress. Eyes: Pupils equal, round and reactive to light. ENT: Pharynx normal. Neck: Normal inspection. Neck supple. CVS: Normal heart rate and rhythm. Pulses normal. Respiratory: No respiratory distress. Breath sounds normal. Abdomen: Soft and nontender. Skin: Skin warm and dry. Normal skin color. Normal skin turgor. Extremities: No lower extremity edema. No calf ttp Neuro: Oriented X 3. No motor deficit. No sensory deficit. Course Course Course Narrative: mag low will replete x 2 will replete K oral and IV repeat troponin pending REPEAT TROP DECREASED stable for DC once lytes completed Procedures EJ/Peripheral Line Neck R: Time Out Performed: Yes Skin Cleansed in Sterile Fashion: Yes Size (gauge): 20 IV Secured and Dressing Applied: Yes Patient Tolerated Procedure: well and no complications MDM - Chest Pain MDM Narrative Medical decision making narrative: 44 yo female with hx of HTN, HPL intermittent bouts of chest pain - ECHO in 09/14 normal EF 60%, cardiac cath 2018 normal coronaries, but also massive PE in 2016 resulting in cardiac arrest - unsure why she had VTE no longer on AC therapy presents with chest pain and nausea/dyspnea since 4am - given recent cath unlikely to be ACS will need two troponins as well as CTA:PE to r/o VTE - dispo per results and findings. Lab Data Result diagrams: 12/05/20 08:59 12/05/20 08:59 Labs: Lab Results 12/05/20 12/05/20 12/05/20 Range/Units 08:59 08:59 08:59 WBC 10.3 (4.8-10.8) X10*3/uL RBC 3.62 L (4.20-5.50) X10*6/uL Hgb 11.3 L (12.0-16.0) g/dl Hct 33.8 L (37-47) % MCV 93.4 (80-98) fL MCH 31.2 (27.0-33.0) pg MCHC 33.4 (31.0-35.0) g/dl RDW 13.2 (11.0-16.0) % Plt Count 234 (160-400) X10*3/uL MPV 9.8 (9.4-12.3) fL Immature Gran % (Auto) 0.4 (0.0-0.4) % Neut % (Auto) 71.8 (45-73) % Lymph % (Auto) 19.2 L (20-40) % Ness % (Auto) 7.2 (2-11) % Eos % (Auto) 1.0 (0-4) % Baso % (Auto) 0.4 (0-2) % Lymph # (Auto) 2.0 (1.2-4.9) X10*3/uL Ness # (Auto) 0.7 (0.1-1.2) X10*3/uL Eos # (Auto) 0.1 (0.0-0.4) X10*3/uL Baso # (Auto) 0.0 (0.0-0.2) X10*3/uL Abs Immat Gran (auto) 0.04 H (0.00-0.03) X10*3/uL Absolute Neuts (auto) 7.4 (2.0-8.3) X10*3/uL Absolute Nucleated RBC 0.000 (0.0-0.012) X10*3/uL Nucleated RBC % (auto) 0.0 (0.0-0.2) /100WBC PT 16.0 H D (10.8-13.0) SEC INR 1.3 H (0.9-1.1) APTT 26.3 (24.1-38.0) SEC Sodium 146 H (135-145) mmol/L Potassium 2.7 L D (3.3-5.1) mmol/L Chloride 105 (96-108) mmol/L Carbon Dioxide 26 (22-29) mmol/L Anion Gap 18 (12-20) BUN 11 (9-16) mg/dL Creatinine 0.72 (0.5-1.4) mg/dL Estim Creat Clear Calc 46.5 Estimated GFR > 60 Random Glucose 78 (60-115) mg/dL Calcium 6.9 L D (8.4-10.2) mg/dL Magnesium < 0.6 L* (1.6-2.6) mg/dL Total Bilirubin 0.5 (0.0-1.0) mg/dL Direct Bilirubin 0.3 (0.0-0.5) mg/dL AST 18 (5-31) U/L ALT 17 (0-31) U/L Alkaline Phosphatase 89 (39-117) U/L Troponin I High Sens (<3.5-17.0) ng/L Total Protein 6.2 L (6.5-8.0) g/dL Albumin 3.8 (3.5-5.0) g/dL Lipase 23 (8-78) U/L 12/05/20 12/05/20 12/05/20 Range/Units 08:59 13:31 13:32 WBC (4.8-10.8) X10*3/uL RBC (4.20-5.50) X10*6/uL Hgb (12.0-16.0) g/dl Hct (37-47) % MCV (80-98) fL MCH (27.0-33.0) pg MCHC (31.0-35.0) g/dl RDW (11.0-16.0) % Plt Count (160-400) X10*3/uL MPV (9.4-12.3) fL Immature Gran % (Auto) (0.0-0.4) % Neut % (Auto) (45-73) % Lymph % (Auto) (20-40) % Ness % (Auto) (2-11) % Eos % (Auto) (0-4) % Baso % (Auto) (0-2) % Lymph # (Auto) (1.2-4.9) X10*3/uL Ness # (Auto) (0.1-1.2) X10*3/uL Eos # (Auto) (0.0-0.4) X10*3/uL Baso # (Auto) (0.0-0.2) X10*3/uL Abs Immat Gran (auto) (0.00-0.03) X10*3/uL Absolute Neuts (auto) (2.0-8.3) X10*3/uL Absolute Nucleated RBC (0.0-0.012) X10*3/uL Nucleated RBC % (auto) (0.0-0.2) /100WBC PT (10.8-13.0) SEC INR (0.9-1.1) APTT (24.1-38.0) SEC Sodium (135-145) mmol/L Potassium (3.3-5.1) mmol/L Chloride (96-108) mmol/L Carbon Dioxide (22-29) mmol/L Anion Gap (12-20) BUN (9-16) mg/dL Creatinine (0.5-1.4) mg/dL Estim Creat Clear Calc Estimated GFR Random Glucose (60-115) mg/dL Calcium (8.4-10.2) mg/dL Magnesium 1.2 L* (1.6-2.6) mg/dL Total Bilirubin (0.0-1.0) mg/dL Direct Bilirubin (0.0-0.5) mg/dL AST (5-31) U/L ALT (0-31) U/L Alkaline Phosphatase (39-117) U/L Troponin I High Sens 24.3 H D 19.2 H (<3.5-17.0) ng/L Total Protein (6.5-8.0) g/dL Albumin (3.5-5.0) g/dL Lipase (8-78) U/L ECG Data ECG #1: Attestation: I personally reviewed and interpreted this ECG as follows: ECG interpretation date: 12/05/20 ECG interpretation time: 07:01 Interpretation: Rate: 72 Rhythm: NSR with PACs [place]: normal, LVH Normal P waves. Normal ANTONIO. Normal QRS complex. ST T wave : nonspecific in anterior leads, no ROBBIE qTC: normal prior studies: no acute ischemia The study has been interpreted contemporaneously by me. . Discharge Plan Discharge Clinical Impression: Chest discomfort, Acute hypokalemia, Hypomagnesemia Patient Disposition: Home, Self-Care Instructions: Chest Pain (ED), Hypokalemia (ED), Hypomagnesemia (ED) Additional Instructions: your potassium and magnesium were repleted, continue taking your magnesium CT scan did show some pulmonary nodules should be monitored yearly by your doctor Prescriptions: No Action ferrous sulfate 325 mg (65 mg iron) tablet 1 tab PO BID RF: 0 gabapentin 300 mg capsule 1 cap PO BID RF: 0 omeprazole 20 mg capsule,delayed release(DR/EC) 1 cap PO BID RF: 0 ondansetron HCl [Zofran] 4 mg tablet 4 mg PO Q8H PRN (Reason: nausea and vomiting) Qty: 10 RF: 0 hydralazine 25 mg tablet 25 mg PO TID Qty: 90 RF: 0 atorvastatin 80 mg tablet 80 mg PO DAILY RF: 0 ascorbate calcium (vitamin C) 500 mg tablet 500 mg PO DAILY RF: 0 cholecalciferol (vitamin D3) 25 mcg (1,000 unit) capsule 25 mcg PO DAILY RF: 0 acetaminophen [Tylenol Extra Strength] 500 mg tablet 500 mg PO QID PRNRF: 0 diltiazem HCl 120 mg capsule,extended release 24hr 120 mg PO DAILY Qty: 30 RF: 5 Referrals: Physician,Unknown [Primary Care Provider] - 2 days
--- NOTE | 2020-12-05 07:20 | PC.NURSE ---
tough stick, warm blankets placed on pt arm and additional rn to try for iv placement.
--- NOTE | 2020-12-05 07:58 | PC.NURSE ---
multiple attempts by multiple nurses for iv access. plan to ultrasound for access. aware.
[2020-12-05] MEDS: ondansetron HCL 4 MG/2 ML VIAL IVPUSH (08:47)
[2020-12-05 09:09] LABS: MANUAL DIFF FLAG NO
[2020-12-05 09:15] LABS: Basophils Percent Auto 0.4 % (0-2); Eosinophils Absolute Auto 0.1 X10*3/uL (0.0-0.4); Hematocrit 33.8 % (37-47); Hemoglobin 11.3 g/dl (12.0-16.0); Imm Gran Abs Auto 0.04 X10*3/uL (0.00-0.03); Imm Gran Pct Auto 0.4 % (0.0-0.4); Lymphocytes Percent Auto 19.2 % (20-40); Mean Corpuscular HGB Conc 33.4 g/dl (31.0-35.0); Mean Corpuscular Hemoglobin 31.2 pg (27.0-33.0); Mean Corpuscular Volume 93.4 fL (80-98); Mean Platelet Volume 9.8 fL (9.4-12.3); Monocytes Absolute Auto 0.7 X10*3/uL (0.1-1.2); Monocytes Percent Auto 7.2 % (2-11); Neutrophils Absolute Auto 7.4 X10*3/uL (2.0-8.3); Neutrophils Percent Auto 71.8 % (45-73); Platelet Count 234 X10*3/uL (160-400); Red Blood Count 3.62 X10*6/uL (4.20-5.50); Red Cell Distribution Width 13.2 % (11.0-16.0); White Blood Count 10.3 X10*3/uL (4.8-10.8)
[2020-12-05 09:32] LABS: INTERNATIONAL NORM RATIO 1.3 (0.9-1.1)
[2020-12-05 09:35] LABS: Partial Thromboplastin Time 26.3 SEC (24.1-38.0)
[2020-12-05 10:06] LABS: Alanine Aminotransferase 17 U/L (0-31); Albumin Level 3.8 g/dL (3.5-5.0); Alkaline Phosphatase 89 U/L (39-117); Anion Gap 18 (12-20); Aspartate Amino Transferase 18 U/L (5-31); Bilirubin Direct 0.3 mg/dL (0.0-0.5); Bilirubin Total 0.5 mg/dL (0.0-1.0); Blood Urea Nitrogen 11 mg/dL (9-16); Calcium 6.9 mg/dL (8.4-10.2); Carbon Dioxide 26 mmol/L (22-29); Chloride 105 mmol/L (96-108); Creatinine Clr Calc Pharmacy 46.5; Estimated Glomerular Filt Rate > 60; Glucose Random 78 mg/dL (60-115); Lipase 23 U/L (8-78); Magnesium < 0.6 mg/dL (1.6-2.6); Potassium 2.7 mmol/L (3.3-5.1); Sodium 146 mmol/L (135-145); Total Protein 6.2 g/dL (6.5-8.0); Troponin-I High Sensitivity 24.3 ng/L (<3.5-17.0)
[2020-12-05] MEDS: Magnesium Sulfate/H2O 2 GM/50 ML PIGGYBACK IV ×2 (10:15→13:46)
[2020-12-05] MEDS: iohexoL 350 MG/ML 100 ML INFUS..BTL IV (11:00)
--- NOTE | 2020-12-05 11:51 | PC.NURSE ---
iv infiltrated. removed. 24g placed in r hand
[2020-12-05 12:00] VITALS: BP 179/65; PULSE 62; RESP 12; TEMP 36.7; O2SAT 96
[2020-12-05] MEDS: Potassium Chloride ER 20 MEQ TAB.ER.PRT 40 MEQ PO (13:45)
[2020-12-05] MEDS: Potassium Chloride/H20 10 MEQ/100 ML PIGGYBACK 100 MEQ IV ×2 (13:45→14:59)
[2020-12-05 13:52] VITALS: PULSE 70; RESP 16; O2SAT 97
[2020-12-05 14:13] LABS: Magnesium 1.2 mg/dL (1.6-2.6)
[2020-12-05 14:14] LABS: Troponin-I High Sensitivity 19.2 ng/L (<3.5-17.0)
== END 2020-12-05 16:41 | disposition home or self-care (01) ==
PROVIDERS: Emergency Provider Emergency Medicine
DX: R07.9 Chest pain, unspecified (principal); E87.6 Hypokalemia; E83.42 Hypomagnesemia; J90 Pleural effusion, not elsewhere classified; R11.0 Nausea; R91.8 Other nonspecific abnormal finding of lung field; I10 Essential (primary) hypertension; D64.9 Anemia, unspecified; K21.9 Gastro-esophageal reflux disease without esophagitis; Z86.718 Personal history of other venous thrombosis and embolism; Z86.711 Personal history of pulmonary embolism; Z79.899 Other long term (current) drug therapy; Z79.02 Long term (current) use of antithrombotics/antiplatelets
CPT/HCPCS: 36415; 36569; 71275; 80048; 80076; 83690; 83735; 84484; 85025; 85610; 85730; 93005; 96365; 96366; 96367; 96368; 96375; 99285; J2405; J3475; Q9967

== ENCOUNTER 2020-12-13 11:08 | Outpatient (REF) | payer OTHER, MEDICAID, SELFPAY ==
[2020-12-13 13:58] LABS: Anion Gap 16 (12-20); Blood Urea Nitrogen 11 mg/dL (9-16); Calcium 8.8 mg/dL (8.4-10.2); Carbon Dioxide 28 mmol/L (22-29); Chloride 104 mmol/L (96-108); Estimated Glomerular Filt Rate > 60; Glucose Random 83 mg/dL (60-115); Magnesium 0.9 mg/dL (1.6-2.6); Potassium 4.1 mmol/L (3.3-5.1); Sodium 144 mmol/L (135-145)
== END 2020-12-13 11:09 | disposition home or self-care (01) ==
LOC: HO.LAB 11:08
PROVIDERS: PCP Internal Medicine; Visit Provider Nurse Practitioner Family
DX: R07.89 Other chest pain (principal); R00.2 Palpitations; R94.31 Abnormal electrocardiogram [ECG] [EKG]; I49.1 Atrial premature depolarization; I10 Essential (primary) hypertension; E83.42 Hypomagnesemia; Z79.899 Other long term (current) drug therapy
CPT/HCPCS: 36415; 80048; 83735; 99212

== ENCOUNTER → 2020-12-22 14:55 | Outpatient (REF) | payer OTHER, MEDICAID, SELFPAY ==
--- NOTE | 2020-12-22 14:58 | CA_ITS ---
Transthoracic Echocardiogram Patient (Last, First, Middle): Prema Carpenter R Gender: Female Date of : 1940 Age: 80 Procedure Date: 12/22/2020 Procedure Type: Transthoracic Echocardiogram Location: OP Height: 144.78 cm Weight: 58.97 kg BSA: 1.50 m2 Heart Rate: bpm BP: 140 / 70 mmHg Power Cutting Machine Operator: HUNTER Gold MD: Tamy Chandler CLIN NURSE-C [place] Customer Experience Specialist: Oscar Valiente MD Symptoms: R07.89 - Other chest pain Study Quality: Good ECG Rhythm: Sinus Conclusions: - 1. Normal LV systolic function with grade 1 diastolic dysfunction 2. Normal cardiac valvular Doppler 3. Normal RV systolic pressure 4. No pericardial effusion Findings Left Ventricle Normal left ventricular size, thickness, and systolic function. The visually estimated ejection fraction is between 65-70%. Spectral Doppler is indicative of an impaired relaxation filling pattern. E/E prime ratio is <8, consistent with normal filling pressures. Evidence suggests grade I (mild) diastolic dysfunction. Right Ventricle Normal right ventricular cavity size and systolic function. Atria Both atria are normal in size. There is no evidence of interatrial shunt. Aortic Valve Normal aortic valve structure and function. There is no aortic valve stenosis. There is no aortic valve regurgitation. Mitral Valve Normal mitral valve structure and function. There is trace mitral valve regurgitation. There is no mitral valve stenosis. Pulmonic Valve The pulmonic valve is likely normal. There is trace pulmonic valve regurgitation. Tricuspid Valve Normal tricuspid valve structure. There is trace tricuspid valve regurgitation. The right ventricular systolic pressure is normal. The right ventricular systolic pressure is 33 mmHg. Normal right atrial pressure. There is no evidence of pulmonary hypertension. Great Vessels All visible segments of the aorta are normal in size. The pulmonary artery was not well visualized. Venous The inferior vena cava is normal in size and collapses greater than 50% with inspiration. Pericardium/Pleural There is no evidence of pericardial effusion. Prior Study Comparison No significant change compared to prior study dated: 03/03/2020. Measurements 2D Linear Measurements IVSd: 0.98 0.6-0.9/0.6-1.0 cm LVIDd: 2.89 3.9-5.3/4.2-5.9 cm LVIDd Index: 1.93 2.4-3.2/2.2-3.1 cm/m2 LVIDs: 2.04 2.0-3.6 cm LVPWd: 0.88 0.7-1.1 cm Ao Root: 3.30 2.1-3.5 cm LA Diam: 3.30 2.7-3.8/3.0-4.0 cm LAIDs Index: 2.20 1.5-2.3 cm/m2 LV Mass: 86.14 67-162/88-224 g LV Mass Index: 57.43 43-95/49-115 g/m2 LVOT Diam: 2.00 3.0+(-)1.3 cm 2D Systolic Function EF 4C: 70.30 >55% EF 2C: 63.60 >55% EF BiP: 67.10 >55% Mitral Valve MV Pk E: 0.72 MV PK A: 1.11 MV Decel Time: 373.00 E/A: 0.60 E'Lateral: 5.22 E'Medial: 4.84 E/E' Med: 14.80 E/E' Lat: 13.70 PHT: 109.00 MVA PHT: 2.02 Decel Menard: 1.92 Aortic Valve AoV Pk Elmo: 1.71 AoV Mn Elmo: 1.12 AoV VTI: 0.37 AoV Pk Grad: 12.00 Aov Mn Grad: 5.00 MARQUES Cont.VTI: 2.42 LVOT LVOT Pk Elmo: 1.20 LVOT Mn Elmo: 0.92 LVOT VTI: 0.29 LVOT Pk Grad: 6.00 LVOT Mn Grad: 4.00 LVOT Diam: 2.00 LVOT Area: 3.14 Diastolic Function MV Pk E: 0.72 MV Pk A: 1.11 E/A: 0.60 E'Medial: 4.84 E/E' Med: 14.80 E' Laterial: 5.22 E/E' Lat: 13.70 Tricuspid Valve TR Pk Elmo: 2.72 TR Pk Grad: 30.00 RA Press: 3.00 RVSP: 33.00 Great Vessels Aorta Ao Root-2D: 3.30 2.0-3.7 cm Ao Asc: 3.40 2.1-3.4 cm Ao Arch: 2.80 Updated in Other Vendor System with Status of Final Oscar Valiente MD electronically signed on 12/23/2020 11:34:56 AM with status of Final
== END ==
LOC: HO.CARD 14:55
PROVIDERS: PCP Internal Medicine; Visit Provider Nurse Practitioner Family
DX: R07.89 Other chest pain (principal); R00.2 Palpitations; R94.31 Abnormal electrocardiogram [ECG] [EKG]; I49.1 Atrial premature depolarization; I10 Essential (primary) hypertension
CPT/HCPCS: 93306

== ENCOUNTER → 2021-05-10 13:53 | Outpatient (BNVA) | payer OTHER, MEDICAID, SELFPAY | PROVIDERS: PCP Internal Medicine; Visit Provider Nurse Practitioner Family | DX: R07.89 Other chest pain (principal); R00.2 Palpitations; I49.1 Atrial premature depolarization; I10 Essential (primary) hypertension; E83.42 Hypomagnesemia; R94.31 Abnormal electrocardiogram [ECG] [EKG] | CPT/HCPCS: 99212 ==

== ENCOUNTER 2021-06-19 08:58 | Inpatient (IN) | payer OTHER, MEDICAID, SELFPAY ==
--- NOTE | ~2021-06-19 | CT_ITS ---
EXAMINATION: CT ENTEROGRAPHY ABDOMEN AND PELVIS WITH CONTRAST CLINICAL INFORMATION: Abdominal pain COMPARISON: Previous CT from yesterday TECHNIQUE: Study performed with oral VoLumen (1350 mL) and 480 mL of water to distend the abdomen. The patient was injected with 85 mL Omnipaque 350 intravenous contrast which was administered without adverse effect. Coronal and sagittal reformatted images were obtained at the technologist's workstation. This CT examination was performed using dose optimization techniques as appropriate, variously including the following: *Automated exposure control *Adjustment of mA and/or kV according to patient size (this includes techniques or standardized protocols for targeted exams where dose is matched to indication/reason for exam; i.e. extremities or head) *Use of iterative reconstruction technique DLP: 345 mGy-cm FINDINGS: GASTROINTESTINAL FINDINGS: Stomach: Well-distended. Small posterior gastric diverticulum arising from the proximal stomach. Small intestine: Postsurgical changes to the small bowel low in the midline pelvis. The small bowel appears dilated at the anastomosis. The small bowel is well distended. There are multiple calcifications seen in the small bowel and cecum and proximal right colon or enteroliths. This may be related to postsurgical change or bowel stasis or infection. Large intestine: There are postsurgical changes to the sigmoid colon and proximal transverse colon. There is diverticulosis of the colon. No evidence of diverticulitis is seen. No evidence of obstruction. No evidence of free air. The appendix is not identified. Additional findings: No abnormal enhancement of the vasa recta or significant mesenteric or retroperitoneal lymphadenopathy is seen. No abdominal abscess or fistulous tract demonstrated. ABDOMINAL AND PELVIC CT FINDINGS: Liver, gallbladder, biliary tract: The liver is unremarkable. The gallbladder has been removed. There is no biliary duct dilatation. Pancreas: Unremarkable Spleen: Unremarkable Adrenal glands and kidneys: Stable right adrenal mass. Normal left adrenal gland. Bilateral renal cysts. There is right hydronephrosis and proximal ureteral dilatation. This is new or increased from yesterday's exam. Ureters and bladder: Both ureters appear more dilated than seen on yesterday's exam and are dilated down to the bladder. The bladder is full. Lymphovascular structures: No enlarged lymph nodes are seen. There is evidence of atherosclerotic disease. The uterus appears to have been removed. No pelvic mass is seen. Bones: There are degenerative changes of the spine and hip joints. Lung bases: There is subsegmental atelectasis at the lung bases. CT/CT enterography IMPRESSION: Multiple enteroliths seen in the distal small bowel and proximal large bowel. This may be related to postsurgical changes, bowel stasis or infection. There are postsurgical changes to the small bowel in the low midline pelvis, proximal transverse colon and sigmoid colon with anastomotic staple lines. There is focal dilatation of the small bowel at the surgical anastomosis. There is no evidence of obstruction. Diverticulosis of the colon. No evidence of diverticulitis. Appendix not seen. Well-distended stomach with small posterior proximal gastric diverticulum. No mass New right hydronephrosis and bilateral ureteral dilatation. This may be related to bladder distention. . Other stable findings from yesterday's exam.
--- NOTE | ~2021-06-19 | CT_ITS ---
EXAMINATION: CT ABDOMEN AND PELVIS WITHOUT CONTRAST CLINICAL INFORMATION: Left lower quadrant pain and bleeding COMPARISON: Previous CT of the abdomen and pelvis April 2019, abdominal ultrasound April 2019 and renal ultrasound March 2020 TECHNIQUE: Multidetector volumetric imaging was performed from the superior aspect of the liver through the pubic symphysis. Sagittal and coronal reformatted images were obtained on the technologist's workstation. This CT examination was performed using dose optimization techniques as appropriate, variously including the following: *Automated exposure control *Adjustment of mA and/or kV according to patient size (this includes techniques or standardized protocols for targeted exams where dose is matched to indication/reason for exam; i.e. extremities or head) *Use of iterative reconstruction technique DLP: 453 mGy-cm FINDINGS: LUNG BASES: There is subsegmental atelectasis at the lung bases.. LIVER, GALLBLADDER, AND BILIARY TREE: The liver is normal in size, shape, and attenuation. No focal hepatic lesion or biliary ductal dilatation is present. The gallbladder has been removed. There is no pneumobilia PANCREAS: Unremarkable. SPLEEN: Unremarkable. ADRENAL GLANDS: There is a 1 x 2 cm low-attenuation right adrenal lesion that is stable. Hounsfield units without contrast measure 10 suggestive of a benign adenoma. No imaging follow-up needed. The left adrenal gland is unremarkable. There are multiple bilateral renal cysts that are stable. The kidneys are otherwise unremarkable. KIDNEYS AND URETERS: There are multiple bilateral renal cysts that are stable. No imaging follow-up is needed. The kidneys are otherwise unremarkable. BLADDER: Unremarkable. GASTROINTESTINAL TRACT: There is evidence of previous surgery to the sigmoid colon, distal right colon/transverse flexure and the small bowel. There is diverticulosis of the colon. No evidence of diverticulitis is seen. There are slightly distended fluid-filled loops of small bowel seen in the pelvis near the surgical anastomosis questionable for partial small bowel obstruction. There is a blind ending tubular structure in the right lower quadrant measuring up to 2 cm in diameter. This is is filled with fluid and contains multiple calcifications. The surrounding fat is normal. Appearance is questionable for a dilated appendix versus a dilated loop of small bowel with stone.. There is a small diverticulum adjacent to the posterior proximal stomach. There is question of gallbladder wall thickening of the proximal stomach. ABDOMINAL WALL: No significant hernia is appreciated. LYMPH NODES: Normal. VASCULAR: Unremarkable. PELVIC VISCERA: The uterus appears to have been removed. No pelvic mass is seen. OSSEOUS STRUCTURES: There are degenerative changes of the spine and hip joints. CT/CT abdomen pelvis wo con IMPRESSION: Diverticulosis of the colon. No evidence of diverticulitis. Postsurgical changes to the small and large bowel. There are distended fluid-filled loops of small bowel adjacent to the small bowel anastomotic staple line questionable for partial small bowel obstruction. Question dilated fluid-filled appendix with appendicoliths versus dilated loop of distal small bowel or diverticulum with stones. Correlation with patient's surgical history is recommended, i.e does the patient still have her appendix. Wall thickening of the proximal stomach and small posterior proximal gastric diverticulum. Bilateral renal cysts.
[2021-06-19 09:08] VITALS: BP 155/64; PULSE 64; RESP 16; TEMP 36.9; O2SAT 99; BMI 26.4
--- NOTE | 2021-06-19 09:35 | ECG_ITS ---
Test Reason : GI BLEED Blood Pressure : / mmHG Vent. Rate : 056 BPM Atrial Rate : 056 BPM P-R Int : 186 ms QRS Dur : 088 ms QT Int : 436 ms P-R-T Axes : 053 040 078 degrees QTc Int : 420 ms Sinus bradycardia Otherwise normal ECG Premature atrial complexes is no longer Present Left ventricular hypertrophy has decreased Referred By: Marek Cervantes Electronically Signed By:ELISABETH ORDONEZ MD
--- NOTE | 2021-06-19 09:37 | ED.GENADULT ---
HPI - General Adult General Chief complaint: General Medical Stated complaint: Black stools Time Seen by Provider: 06/19/21 09:34 Source: patient Mode of arrival: ambulatory Limitations: no limitations History of Present Illness HPI narrative: [age] year female came in for evaluation left lower abdominal pain and black stool. Patient woke up today with stool incontinent of black watery diarrhea, patient is not taking anticoagulation, patient has been evaluated in the past by GI for similar presentation and she was taking Tylenol that was discontinued and the plank stool improved until today, patient also taking iron pills every day. Patient is complaining of mild left lower quadrant tenderness, no nausea, no vomiting. Pain is localized to the left lower quadrant with no radiation described as intermittent, mild ache, 5/10, associated with 1 time of black watery loose stool. Related Data Home Medications Medication Instructions Recorded Confirmed ferrous sulfate 325 mg (65 mg 1 tab PO BID 09/21/20 06/19/21 iron) tablet gabapentin 300 mg capsule 1 cap PO BID 09/21/20 06/19/21 ascorbate calcium (vitamin C) 500 500 mg PO DAILY 11/11/20 06/19/21 mg tablet atorvastatin 80 mg tablet 80 mg PO BEDTIME 11/11/20 06/19/21 psyllium husk 0.4 gram capsule 0.4 g PO BEDTIME 05/10/21 06/19/21 (Metamucil) spironolactone 25 mg tablet 25 mg PO DAILY 05/10/21 06/19/21 loratadine 10 mg tablet 1 tab PO BEDTIME 06/19/21 06/19/21 magnesium oxide 500 mg capsule 500 mg PO BEDTIME 06/19/21 06/19/21 nitroglycerin 0.4 mg sublingual 0.4 mg SUBLINGUAL DIRECTED 06/19/21 06/19/21 tablet omeprazole 40 mg capsule,delayed 1 cap PO DAILY 06/19/21 06/19/21 release Previous Rx's Medication Instructions Recorded diltiazem HCl 120 mg 120 mg PO DAILY #90 cap 03/06/21 capsule,extended release 24 hr Allergies Allergy/AdvReac Type Severity Reaction Status Date / Time latex Allergy Rash Verified 12/13/20 11:14 Latex Gloves Allergy Unknown rash Uncoded 12/13/20 11:14 Anjali spice Allergy Unknown Rash Uncoded 12/13/20 11:14 Review of Systems Review of Systems: All other systems are reviewed and are negative Constitutional: Reports as per HPI and Reports no additional constitutional complaints Eyes: Reports as per HPI and Reports no additional eye complaints Reports system reviewed and no additional complaints, except as documented Cardiovascular: Reports as per HPI and Reports no additional cardiovascular complaints Respiratory: Reports as per HPI and Reports no additional respiratory complaints Gastrointestinal: Reports as per HPI and Reports no additional gastrointestinal complaints Genitourinary: Reports no additional female genitourinary complaints Musculoskeletal: Reports no additional musculoskeletal complaints Skin/Breast: Reports system reviewed and no additional complaints, except as docu Psychiatric: Reports no additional psychiatric complaints Endocrine: Reports no additional endocrine complaints Hematologic/Lymphatic: Reports no additional hematologic/lymphatic complaints Allergic/Immunologic: Reports no additional allergic/immunologic complaints Reports system reviewed and no additional complaints, except as documented and Reports Abnormal speech present [facility] Past Medical History Medical History (Updated 06/19/21 @ 13:40 by Marek Cervantes MD) Abnormal EKG Anemia Chest discomfort Dark stools DVT (deep venous thrombosis) Gastritis GERD (gastroesophageal reflux disease) HTN (hypertension) PAC (premature atrial contraction) Pulmonary embolism Renal cyst Surgical History (Updated 06/19/21 @ 13:15 by Bryan Gallegos MD) History of colon resection History of laparoscopic cholecystectomy Family History Family History Father No problems noted. Mother No problems noted. Social History Social History Alcohol intake: never Advance Directives: No Advance Directives Information Provided: No Physical Exam Vital Signs: Vital Signs: Last Vital Signs Temp 97.8 F 06/19/21 10:18 Pulse 55 06/19/21 10:18 Resp 16 06/19/21 10:18 BP 156/66 H 06/19/21 10:18 Pulse Ox 99 06/19/21 10:18 Body Mass Index 26.4 Vital signs have been reviewed as appeared to be correct. Blood pressure normal. Heart rate normal. Respiration rate normal. Temperature normal. Oxygen saturation normal. Appearance: Alert. Oriented X3. No acute distress. Head: Normal external exam. Normocephalic. Atraumatic. No [place] signs noted. No raccoon eyes noted Eyes: PERRLA. EOMI. Conjunctiva and sclera normal. Eyelids normal. ENT: TM's Normal. Pharynx normal. Uvula midline. Moist mucous membranes. No trismus noted. No drooling noted. No muffled voice noted. Neck: Normal inspection. Neck supple. FROM. No adenopathy. Thyroid Normal. No meningeal signs. No neck mass noted. CVS: Normal heart rate and rhythm. Heart sound normal. No murmurs noted. Pulses normal throughout. Respiratory: No respiratory distress. Painless inspiration. Breath sounds normal. No wheezes/rales/rhonchi noted. Chest nontender. No accessory muscle usage noted or decreased air movement noted. Abdomen: Soft and nontender. Bowel sounds normal in all 4 quadrants. No distention noted. No organomegaly noted. No visible injury noted. Rectal exam: Black tarry stool positive for blood. Back: No CVA tenderness. Full range of motion noted. Skin: Skin warm and dry. Normal skin color. Normal skin turgor. No rashes/lesions/lacerations noted. Extremities: No lower extremity edema. Extremities exhibit normal range of motion. Extremities nontender. Neuro: Oriented X 3. Cranial nerve exam: II-XII are grossly intact No motor deficit. No sensory deficit. Reflexes normal. Course Course Course Narrative: Assessment and plan. 80-year-old female came in for black tarry stool, patient had a history of blacked her stool in the past that was treated by stopping some medication as patient was instructed by Dr. cha from GI, patient came in today appear stable, no apparent distress, stable vital signs, stable labs, stool is black however negative for black (likely supplemental iron that patient use), CT of the abdomen pelvis showed incidental finding of dilated appendix versus dilated bowel loops, Dr. Gallegos from General surgery was at the bedside examined the patient please refer to his consultation report. We also recommended to observe the patient for 1 day in the hospital. Medical Decision Making Lab Data Lab results reviewed: Yes I reviewed the patient's lab results. Result diagrams: 06/19/21 11:30 06/19/21 11:30 Labs: Lab Results 06/19/21 06/19/21 06/19/21 Range/Units 11:30 11:30 11:30 WBC 9.4 (4.8-10.8) X10*3/uL RBC 4.10 L (4.20-5.50) X10*6/uL Hgb 13.0 (12.0-16.0) g/dl Hct 38.9 (37-47) % MCV 94.9 (80-98) fL MCH 31.7 (27.0-33.0) pg MCHC 33.4 (31.0-35.0) g/dl RDW 13.0 (11.0-16.0) % Plt Count 244 (160-400) X10*3/uL MPV 9.5 (9.4-12.3) fL Immature Gran % (Auto) 0.2 (0.0-0.4) % Neut % (Auto) 67.4 (45-73) % Lymph % (Auto) 26.1 (20-40) % [place] % (Auto) 5.6 (2-11) % Eos % (Auto) 0.4 (0-4) % Baso % (Auto) 0.3 (0-2) % Lymph # (Auto) 2.5 (1.2-4.9) X10*3/uL [place] # (Auto) 0.5 (0.1-1.2) X10*3/uL Eos # (Auto) 0.0 (0.0-0.4) X10*3/uL Baso # (Auto) 0.0 (0.0-0.2) X10*3/uL Abs Immat Gran (auto) 0.02 (0.00-0.03) X10*3/uL Absolute Neuts (auto) 6.3 (2.0-8.3) X10*3/uL Absolute Nucleated RBC 0.000 (0.0-0.012) X10*3/uL Nucleated RBC % (auto) 0.0 (0.0-0.2) /100WBC PT (9.9-13.0) SEC INR (0.9-1.1) APTT (24.1-38.0) SEC Sodium 140 (135-145) mmol/L Potassium 4.0 (3.3-5.1) mmol/L Chloride 103 (96-108) mmol/L Carbon Dioxide 29 (22-29) mmol/L Anion Gap 12 (12-20) BUN 14 (9-16) mg/dL Creatinine 0.95 (0.5-1.4) mg/dL Estim Creat Clear Calc 34.3 Estimated GFR 57 Random Glucose 90 (60-115) mg/dL Lactic Acid 1.7 (0.5-2.0) mmol/L Calcium 10.1 D (8.4-10.2) mg/dL Total Bilirubin 0.5 (0.0-1.0) mg/dL Direct Bilirubin 0.2 (0.0-0.5) mg/dL AST 19 (5-31) U/L ALT 15 (0-31) U/L Alkaline Phosphatase 97 (39-117) U/L Troponin I High Sens (<3.5-17.0) ng/L B-Natriuretic Peptide (<100) pg/mL Total Protein 6.9 (6.5-8.0) g/dL Albumin 4.2 (3.5-5.0) g/dL Lipase 33 (8-78) U/L Stool Occult Blood (NEGATIVE) COVID-19 (EMETERIO) (Negative) COVID-19 Clin Com 06/19/21 06/19/21 06/19/21 Range/Units 11:30 11:30 11:54 WBC (4.8-10.8) X10*3/uL RBC (4.20-5.50) X10*6/uL Hgb (12.0-16.0) g/dl Hct (37-47) % MCV (80-98) fL MCH (27.0-33.0) pg MCHC (31.0-35.0) g/dl RDW (11.0-16.0) % Plt Count (160-400) X10*3/uL MPV (9.4-12.3) fL Immature Gran % (Auto) (0.0-0.4) % Neut % (Auto) (45-73) % Lymph % (Auto) (20-40) % [place] % (Auto) (2-11) % Eos % (Auto) (0-4) % Baso % (Auto) (0-2) % Lymph # (Auto) (1.2-4.9) X10*3/uL [place] # (Auto) (0.1-1.2) X10*3/uL Eos # (Auto) (0.0-0.4) X10*3/uL Baso # (Auto) (0.0-0.2) X10*3/uL Abs Immat Gran (auto) (0.00-0.03) X10*3/uL Absolute Neuts (auto) (2.0-8.3) X10*3/uL Absolute Nucleated RBC (0.0-0.012) X10*3/uL Nucleated RBC % (auto) (0.0-0.2) /100WBC PT 12.0 (9.9-13.0) SEC INR 1.1 (0.9-1.1) APTT 35.4 (24.1-38.0) SEC Sodium (135-145) mmol/L Potassium (3.3-5.1) mmol/L Chloride (96-108) mmol/L Carbon Dioxide (22-29) mmol/L Anion Gap (12-20) BUN (9-16) mg/dL Creatinine (0.5-1.4) mg/dL Estim Creat Clear Calc Estimated GFR Random Glucose (60-115) mg/dL Lactic Acid (0.5-2.0) mmol/L Calcium (8.4-10.2) mg/dL Total Bilirubin (0.0-1.0) mg/dL Direct Bilirubin (0.0-0.5) mg/dL AST (5-31) U/L ALT (0-31) U/L Alkaline Phosphatase (39-117) U/L Troponin I High Sens 10.9 (<3.5-17.0) ng/L B-Natriuretic Peptide < 10 (<100) pg/mL Total Protein (6.5-8.0) g/dL Albumin (3.5-5.0) g/dL Lipase (8-78) U/L Stool Occult Blood (NEGATIVE) COVID-19 (EMETERIO) Negative (Negative) COVID-19 Clin Com See Note 06/19/21 Range/Units 11:54 WBC (4.8-10.8) X10*3/uL RBC (4.20-5.50) X10*6/uL Hgb (12.0-16.0) g/dl Hct (37-47) % MCV (80-98) fL MCH (27.0-33.0) pg MCHC (31.0-35.0) g/dl RDW (11.0-16.0) % Plt Count (160-400) X10*3/uL MPV (9.4-12.3) fL Immature Gran % (Auto) (0.0-0.4) % Neut % (Auto) (45-73) % Lymph % (Auto) (20-40) % [place] % (Auto) (2-11) % Eos % (Auto) (0-4) % Baso % (Auto) (0-2) % Lymph # (Auto) (1.2-4.9) X10*3/uL [place] # (Auto) (0.1-1.2) X10*3/uL Eos # (Auto) (0.0-0.4) X10*3/uL Baso # (Auto) (0.0-0.2) X10*3/uL Abs Immat Gran (auto) (0.00-0.03) X10*3/uL Absolute Neuts (auto) (2.0-8.3) X10*3/uL Absolute Nucleated RBC (0.0-0.012) X10*3/uL Nucleated RBC % (auto) (0.0-0.2) /100WBC PT (9.9-13.0) SEC INR (0.9-1.1) APTT (24.1-38.0) SEC Sodium (135-145) mmol/L Potassium (3.3-5.1) mmol/L Chloride (96-108) mmol/L Carbon Dioxide (22-29) mmol/L Anion Gap (12-20) BUN (9-16) mg/dL Creatinine (0.5-1.4) mg/dL Estim Creat Clear Calc Estimated GFR Random Glucose (60-115) mg/dL Lactic Acid (0.5-2.0) mmol/L Calcium (8.4-10.2) mg/dL Total Bilirubin (0.0-1.0) mg/dL Direct Bilirubin (0.0-0.5) mg/dL AST (5-31) U/L ALT (0-31) U/L Alkaline Phosphatase (39-117) U/L Troponin I High Sens (<3.5-17.0) ng/L B-Natriuretic Peptide (<100) pg/mL Total Protein (6.5-8.0) g/dL Albumin (3.5-5.0) g/dL Lipase (8-78) U/L Stool Occult Blood NEGATIVE (NEGATIVE) COVID-19 (EMETERIO) (Negative) COVID-19 Clin Com Imaging Data CT scan - abdomen: Radiologist's impression: Diverticulosis of the colon. No evidence of diverticulitis. Postsurgical changes to the small and large bowel. There are distended fluid-filled loops of small bowel adjacent to the small bowel anastomotic staple line questionable for partial small bowel obstruction. Question dilated fluid-filled appendix with appendicoliths versus dilated loop of distal small bowel or diverticulum with stones. Correlation with patient's surgical history is recommended, i.e does the patient still have her appendix. Wall thickening of the proximal stomach and small posterior proximal gastric diverticulum. Bilateral renal cysts. Discharge Plan Discharge Clinical Impression: Diarrhea, Abnormal CT of the abdomen Patient Disposition: Admitted As Inpatient Prescriptions: No Action diltiazem HCl 120 mg capsule,extended release 24hr 120 mg PO DAILY Qty: 90 RF: 1 ferrous sulfate 325 mg (65 mg iron) tablet 1 tab PO BID RF: 0 gabapentin 300 mg capsule 1 cap PO BID RF: 0 nitroglycerin 0.4 mg tablet, sublingual 0.4 mg sublingual DIRECTED RF: 0 loratadine 10 mg tablet 1 tab PO BEDTIME RF: 0 magnesium oxide 500 mg capsule 500 mg PO BEDTIME RF: 0 omeprazole 40 mg capsule,delayed release(DR/EC) 1 cap PO DAILY RF: 0 atorvastatin 80 mg tablet 80 mg PO BEDTIME RF: 0 ascorbate calcium (vitamin C) 500 mg tablet 500 mg PO DAILY RF: 0 spironolactone 25 mg tablet 25 mg PO DAILY RF: 0 psyllium husk [Metamucil] 0.4 gram capsule 0.4 g PO BEDTIME RF: 0
--- NOTE | 2021-06-19 10:00 | PC.NURSE ---
pt alert and oriented, vss. pt states she woke up this morning and noticed she had loose black stool in her bed. she reports she didn't know that she had a bowel movement on herself. she also reports noticing blood in her stool which has been going on for a few months. she denies abdominal pain/n/v. no sob/headache/dizziness. no other symptoms reported.
[2021-06-19 10:18] VITALS: BP 156/66; PULSE 55; RESP 16; TEMP 36.6; O2SAT 99
--- NOTE | 2021-06-19 11:04 | PHA.MEDREC ---
Pharmacy Consult ? Medication Reconciliation Pharmacy has completed the medication reconciliation. Vicki ThorneD
[2021-06-19] MEDS: 0.9 % Sodium Chloride 1,000 ML 999 ML IVCONT (11:29)
[2021-06-19 11:48] LABS: MANUAL DIFF FLAG NO
[2021-06-19 11:50] LABS: Basophils Percent Auto 0.3 % (0-2); Eosinophils Percent Auto 0.4 % (0-4); Hematocrit 38.9 % (37-47); Imm Gran Abs Auto 0.02 X10*3/uL (0.00-0.03); Imm Gran Pct Auto 0.2 % (0.0-0.4); Lymphocytes Absolute Auto 2.5 X10*3/uL (1.2-4.9); Lymphocytes Percent Auto 26.1 % (20-40); Mean Corpuscular HGB Conc 33.4 g/dl (31.0-35.0); Mean Corpuscular Hemoglobin 31.7 pg (27.0-33.0); Mean Corpuscular Volume 94.9 fL (80-98); Mean Platelet Volume 9.5 fL (9.4-12.3); Monocytes Absolute Auto 0.5 X10*3/uL (0.1-1.2); Monocytes Percent Auto 5.6 % (2-11); Neutrophils Absolute Auto 6.3 X10*3/uL (2.0-8.3); Neutrophils Percent Auto 67.4 % (45-73); Platelet Count 244 X10*3/uL (160-400); White Blood Count 9.4 X10*3/uL (4.8-10.8)
[2021-06-19 11:57] LABS: INTERNATIONAL NORM RATIO 1.1 (0.9-1.1)
[2021-06-19 12:00] LABS: Partial Thromboplastin Time 35.4 SEC (24.1-38.0)
[2021-06-19 12:01] LABS: Lactic Acid 1.7 mmol/L (0.5-2.0)
[2021-06-19 12:05] LABS: OBS Int Ctl Valid YES; OBS1 NEGATIVE (NEGATIVE)
[2021-06-19 12:07] LABS: Alanine Aminotransferase 15 U/L (0-31); Albumin Level 4.2 g/dL (3.5-5.0); Alkaline Phosphatase 97 U/L (39-117); Anion Gap 12 (12-20); Aspartate Amino Transferase 19 U/L (5-31); Bilirubin Direct 0.2 mg/dL (0.0-0.5); Bilirubin Total 0.5 mg/dL (0.0-1.0); Blood Urea Nitrogen 14 mg/dL (9-16); Calcium 10.1 mg/dL (8.4-10.2); Carbon Dioxide 29 mmol/L (22-29); Chloride 103 mmol/L (96-108); Creatinine Clr Calc Pharmacy 34.3; Estimated Glomerular Filt Rate 57; Glucose Random 90 mg/dL (60-115); Lipase 33 U/L (8-78); Sodium 140 mmol/L (135-145); Total Protein 6.9 g/dL (6.5-8.0)
[2021-06-19 12:11] LABS: B Type Natriuretic Peptide < 10 pg/mL (<100); Troponin-I High Sensitivity 10.9 ng/L (<3.5-17.0)
[2021-06-19 12:29] LABS: COVID-19 Test Negative (Negative); IDNOW Serial# 9DD0AD1C
--- NOTE | 2021-06-19 13:05 | P.CONGS_ITS ---
History of Present Illness Consult details Consult date: 06/19/21 Narrative: 80-year-old female with multiple medical problems including hypertension, PACs, and history of a PE, who came to the emergency room this morning because of dark tarry stools. She actually says that she has had this since October 2020. She is on iron pills and was told that her dark tarry stools may be secondary to this. She says that she has been following Dr. Blunt as well because of this. She says that she had talked to Dr. Blunt recently who had told her that if her dark tarry stools persists, she can go to the emergency room. The patient says that she also had some loose stools this morning so she decided to come to the emergency room today. She denies any abdominal pain. She does state that she has chronic back pain. She denies any other GI complaints. She denies any nausea or vomiting. She denies any fever or chills at home. She had a CAT scan showing some dilated small bowel loops and question of a dilated appendix so I was consulted. The patient states that she does not have any significant right lower quadrant pain at all. She has a history of sigmoid resection for diverticular stricture in 2016. She had a loop colostomy at that time which was reversed eventually. She also has a history of laparoscopic cholecystectomy 2018. Review of Systems Constitutional: Constitutional: Denies chills and Denies fever(s) Cardiovascular: Cardiovascular: Denies chest pain, Denies dyspnea and Denies dyspnea on exertion Respiratory: Respiratory: Denies cough, Denies dyspnea and Denies dyspnea on exertion Gastrointestinal: Gastrointestinal: Reports melena, Denies hematochezia, Denies change in bowel habits and Reports loose stools Genitourinary: Genitourinary: Denies hematuria Musculoskeletal: Musculoskeletal: Denies back pain and Denies limited range of motion Neurologic: Denies focal weakness and Denies convulsions Psychiatric: Psychiatric: Denies depression and Denies mood swings PMFSH Past Medical History Medical History Abnormal EKG Anemia Chest discomfort Dark stools DVT (deep venous thrombosis) Gastritis GERD (gastroesophageal reflux disease) HTN (hypertension) PAC (premature atrial contraction) Pulmonary embolism Renal cyst Family History Family History Father No problems noted. Mother No problems noted. Surgical History Surgical History History of colon resection History of laparoscopic cholecystectomy Social History Social History Household Members: Family Housing: House Do you presently have visiting nurse or other home services: No Alcohol intake: never Patient Tobacco Use Status: Never used Tobacco service: No Current occupational status: retired Meds Allergies Allergy/AdvReac Type Severity Reaction Status Date / Time latex Allergy Rash Verified 12/13/20 11:14 Latex Gloves Allergy Unknown rash Uncoded 12/13/20 11:14 Anjali spice Allergy Unknown Rash Uncoded 12/13/20 11:14 Active Medications: Current Medications Pharmacy Consult (Consult Rx Perform Med Rec) 1 each MISCELLANE ONCE PRN PRN Reason: Consult order Home Medications Medication Instructions Recorded Confirmed Last Taken Type ferrous sulfate 325 mg (65 mg 1 tab PO BID 09/21/20 06/19/21 06/18/21 History iron) tablet gabapentin 300 mg capsule 1 cap PO BID 09/21/20 06/19/21 06/18/21 History ascorbate calcium (vitamin C) 500 500 mg PO DAILY 11/11/20 06/19/21 06/18/21 History mg tablet atorvastatin 80 mg tablet 80 mg PO BEDTIME 11/11/20 06/19/21 06/18/21 History psyllium husk 0.4 gram capsule 0.4 g PO BEDTIME 05/10/21 06/19/21 06/18/21 History (Metamucil) spironolactone 25 mg tablet 25 mg PO DAILY 05/10/21 06/19/21 06/18/21 History loratadine 10 mg tablet 1 tab PO BEDTIME 06/19/21 06/19/21 06/18/21 History magnesium oxide 500 mg capsule 500 mg PO BEDTIME 06/19/21 06/19/21 06/18/21 History nitroglycerin 0.4 mg sublingual 0.4 mg SUBLINGUAL DIRECTED 06/19/21 06/19/21 Unknown History tablet omeprazole 40 mg capsule,delayed 1 cap PO DAILY 06/19/21 06/19/21 06/18/21 Hist ory release Physical Exam Vital Signs: Vital Signs: Last Vital Signs Temp 97.8 F 06/19/21 10:18 Pulse 55 06/19/21 10:18 Resp 16 06/19/21 10:18 BP 156/66 H 06/19/21 10:18 Pulse Ox 99 06/19/21 10:18 Body Mass Index 26.4 Const: General: comfortable and no acute distress Orien tation/consciousness: patient oriented x3 Neck: Neck: Yes no lymphadenopathy Resp: Auscultation: clear to auscultation bilaterally Cardio: Rhythm: regular rhythm GI: Palpation (GI): Soft to palpation, nontender and no guarding Neuro: General: patient oriented x3 Results Labs Result diagrams: 06/20/21 07:19 06/19/21 11:30 Labs: Abnormal lab results 06/19/21 Range/Units 11:30 RBC 4.10 L (4.20-5.50) X10*6/uL Short CBC 06/19/21 Range/Units 11:30 WBC 9.4 (4.8-10.8) X10*3/uL Hgb 13.0 (12.0-16.0) g/dl Hct 38.9 (37-47) % Plt Count 244 (160-400) X10*3/uL BMP 06/19/21 11:30 Sodium 140 Potassium 4.0 Chloride 103 Carbon Dioxide 29 BUN 14 Creatinine 0.95 Calcium 10.1 D Liver Function 06/19/21 Range/Units 11:30 Total Bilirubin 0.5 (0.0-1.0) mg/dL Direct Bilirubin 0.2 (0.0-0.5) mg/dL AST 19 (5-31) U/L ALT 15 (0-31) U/L Alkaline Phosphatase 97 (39-117) U/L Albumin 4.2 (3.5-5.0) g/dL All other labs normal. Imaging Abdomen CT scan report/results: report reviewed and image reviewed CT scan - pelvis: report reviewed and image reviewed Assessment and Plan (1) Dark stools: Status: Acute She actually came to the ER today because of dark tarry stools although she admits that this is not new. She says that her stools were a little loose this morning that is why she decided to come as well. She had a CAT scan showing question of fluid-filled appendix with appendicoliths versus dilated loop of small bowel with diverticulum or stones. There is some distended fluid-filled loops of small bowel as well. Clinically she is not obstructed. Furthermore, she does not have any significant pain or tenderness even with deep palpation. I therefore told her that despite her CAT scan report, it is unlikely that she has acute appendicitis or small-bowel obstruction. I also explained to her that it was extremely unlikely that her chronic history of dark tarry stools is related to the CAT scan findings as above. She did state that she was instructed by Dr. Blunt to go to the ER if she has persistent dark tarry stools. I am uncertain as to when her last for colonoscopy was but her records show that she had a flexible sigmoidoscopy in 2016 and an EGD as well in 2009. I will follow along while she is in the hospital. Procedures Date of Service Date of Service: 06/19/21
--- NOTE | 2021-06-19 15:35 | PM.IMHP ---
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 She relates that she has been having dark stools since October and recently was in [facility] with her GI doctor who told her that if it gets worse to come to the ED, today she says that she had more watery diarrhea today and some mild pain in the right lower abdominal area. H/H is stable. CT of abdomen Question dilated fluid-filled appendix with appendicolithsversus dilated loop of distal small bowel or diverticulum with stones. Surgeon Dr. El Gallegos has seen and does nothing there appendicitis or other acute finding that need intervention. Occult blood is negative. Review of Systems Review of Systems: Gen: no fever Resp: no sob, no cough CV: no chest, no RAMIREZ, no leg edema GI: No n/v, no abd pain, diarrhea Neuro: No confusion Yes all other systems are reviewed and are negative [facility] Medical History Abnormal EKG Anemia Chest discomfort Dark stools DVT (deep venous thrombosis) Gastritis GERD (gastroesophageal reflux disease) HTN (hypertension) PAC (premature atrial contraction) Pulmonary embolism Renal cyst Family History Father No problems noted. Mother No problems noted. Pertinent family history: . Surgical History History of colon resection History of laparoscopic cholecystectomy Social History Alcohol intake: never Advance Directives: No Advance Directives Information Provided: No Meds Allergies Allergy/AdvReac Type Severity Reaction Status Date / Time latex Allergy Rash Verified 12/13/20 11:14 Latex Gloves Allergy Unknown rash Uncoded 12/13/20 11:14 Anjali spice Allergy Unknown Rash Uncoded 12/13/20 11:14 Active Medications: Current Medications Ascorbic Acid (Ascorbic Acid 500 Mg Tablet) 500 mg PO DAILY [facility] Atorvastatin Calcium (Atorvastatin Calcium 80 Mg Tablet) 80 mg PO BEDTIME [facility] Diltiazem HCl (Diltiazem Hcl Cd 120 Mg Cap.Er.Deg) 120 mg PO DAILY [facility]; Protocol Ferrous Sulfate (Ferrous Sulfate 324 Mg Tablet.) 324 mg PO BID [facility] Gabapentin (Gabapentin 300 Mg Capsule) 300 mg PO BID [facility] Dextrose/Sodium Chloride (D51/2ns) 1,000 mls @ 100 mls/hr IVCONT .Q10H [facility] Loratadine (Loratadine 10 Mg Tablet) 10 mg PO BEDTIME [facility] Magnesium Oxide (Magnesium Oxide 400 Mg Tablet) 400 mg PO BEDTIME [facility] Nitroglycerin (Nitroglycerin 0.4 Mg Tab.Subl) 0.4 mg SUBLINGUAL Q5M PRN PRN Reason: CHEST PAIN Omeprazole (Omeprazole 40 Mg Capsule.) 40 mg PO DAILY@0630 [facility] Pharmacy Consult (Consult Rx Perform Med Rec) 1 each MISCELLANE ONCE PRN PRN Reason: Consult order Psyllium Hydrophilic Mucilloid (Psyllium Seed 3.4 Gm Powd.Pack) 3.4 gm PO BEDTIME [facility] Sodium Chloride (0.9 % Sodium Chloride Flush 3 Ml Syringe) 3 ml IVFLUSH QSHIFT [facility] Spironolactone (Spironolactone 25 Mg Tablet) 25 mg PO DAILY [facility]; Protocol Home Medications Medication Instructions Recorded Confirmed Last Taken Type ferrous sulfate 325 mg (65 mg 1 tab PO BID 09/21/20 06/19/21 06/18/21 History iron) tablet gabapentin 300 mg capsule 1 cap PO BID 09/21/20 06/19/21 06/18/21 History ascorbate calcium (vitamin C) 500 500 mg PO DAILY 11/11/20 06/19/21 06/18/21 History mg tablet atorvastatin 80 mg tablet 80 mg PO BEDTIME 11/11/20 06/19/21 06/18/21 History psyllium husk 0.4 gram capsule 0.4 g PO BEDTIME 05/10/21 06/19/21 06/18/21 History (Metamucil) spironolactone 25 mg tablet 25 mg PO DAILY 05/10/21 06/19/21 06/18/21 History loratadine 10 mg tablet 1 tab PO BEDTIME 06/19/21 06/19/21 06/18/21 History magnesium oxide 500 mg capsule 500 mg PO BEDTIME 06/19/21 06/19/21 06/18/21 History nitroglycerin 0.4 mg sublingual 0.4 mg SUBLINGUAL DIRECTED 06/19/21 06/19/21 Unknown History tablet omeprazole 40 mg capsule,delayed 1 cap PO DAILY 06/19/21 06/19/21 06/18/21 History release Physical Exam Vital Signs and Narrative: Vital Signs: Last Vital Signs Temp 97.8 F 06/19/21 10:18 Pulse 55 06/19/21 10:18 Resp 16 06/19/21 10:18 BP 156/66 H 06/19/21 10:18 Pulse Ox 99 06/19/21 10:18 Body Mass Index 26.4 Constitutional: Alert, in no distress, overweight. Mental Status: Oriented to person, place and time. Eyes: Pupils are equal, round and reactive to light. Ear, Nose and Throat: Oropharynx clear, mucous membranes moist. Trachea midline. Respiratory: Clear to auscultation. No wheezing, rales or rhonchi. Cardiovascular: S1 S2 regular. No murmurs, rubs or gallops. Gastrointestinal: Abdomen soft, non-tender, non-distended. Normal bowel sounds.? rectal exam deffered Neurologic: Cranial nerves II-XII grossly intact. No focal neurological deficits. Moves all extremities spontaneously.? Skin: No rashes or lesions.? Musculoskeletal: No cyanosis or clubbing. Psychiatric: Normal mood and affect? Results Labs CBC and Chem 7: 06/19/21 11:30 06/19/21 11:30 Imaging Radiologist's Impressions: Impressions Abdomen/Pelvis CT 06/19/21 09:35 IMPRESSION: Diverticulosis of the colon. No evidence of diverticulitis. Postsurgical changes to the small and large bowel. There are distended fluid-filled loops of small bowel adjacent to the small bowel anastomotic staple line questionable for partial small bowel obstruction. Question dilated fluid-filled appendix with appendicoliths versus dilated loop of distal small bowel or diverticulum with stones. Correlation with patient's surgical history is recommended, i.e does the patient still have her appendix. Wall thickening of the proximal stomach and small posterior proximal gastric diverticulum. Bilateral renal cysts. Assessment and Plan (1) Diarrhea: Status: Acute (2) Abnormal CT of the abdomen: Status: Acute (3) Dark stools: Status: Acute 80 year female with HTN, h/o DVT/PE presently not anticoagulated presenting with diarrhea, and report of dark stoo since october, negative occult blood, normal Hgb and hematocrit and ? CT finding of appendicoliths or appendicitis. Plan: 1/? gib results so far do not support active gi bleed, repeat hemoglobin tomorrow and if h/h droping consult gi if not follow up with gi on outpatiet basis 2/Abnormal CT finding of apendice, surgery following 3/HTN--continue cardizem 4/ HLD--Lipitor 5/DVT prophylaxis--mechanical device for now Quality Stroke Does the patient have a stroke diagnosis?: No VTE Prior VTE?: Yes VTE Risk Level:: Medical - low VTE Device Contraindication: N/A - Device Ordered VTE Drug Contraindication: Treatment Not Indicated
[2021-06-19] MEDS: Dextrose 5 % and 0.45 % NaCl 1,000 ML 100 ML IVCONT (17:14)
--- NOTE | 2021-06-19 18:20 | MHC.CM.PN ---
CM met with admitted med surg patient with bed assignment pending. A&Ox3. IMM reviewed and signed per protocol 06/19/2021@1810. Pt lives with her children and they take turns caring for her . States she moves from home to home. Has 6 children. Pt states she feels safe and her children take good care of her. Pt. uses a cane and has no services. HCP is on file. HCP/daughter Morena Keys ([phone]) and alternate HCP/son Vince Carpenter ([phone]). Pt is fully vaccinated with [employer]. Pt plans to go to stay with family in [facility] on . D/C plan is home with family. Transportation home by family. CM to follow for d/c needs.
[2021-06-19 18:48] VITALS: BP 180/64; PULSE 66; RESP 16; TEMP 36.6; O2SAT 100
[2021-06-19] MEDS: Ferrous Sulfate 324 MG TABLET.DR PO (20:48)
[2021-06-19] MEDS: Magnesium Oxide 400 MG TABLET PO (20:48)
[2021-06-19] MEDS: Loratadine 10 MG TABLET PO (20:48)
[2021-06-19] MEDS: Atorvastatin Calcium 80 MG TABLET PO (20:48)
[2021-06-19] MEDS: Gabapentin 300 MG CAPSULE PO (20:48)
[2021-06-19 22:06] VITALS: BP 191/72; PULSE 56; RESP 15; TEMP 36.8; O2SAT 99
[2021-06-19 23:44] VITALS: BP 150/68; PULSE 59; RESP 17; TEMP 36.3; O2SAT 100
[2021-06-20] VITALS (8 sets, daily range): BP systolic 139–160; BP diastolic 64–70; PULSE 58–100; RESP 17–18; TEMP 36–36.7; O2SAT 98–100
[2021-06-20] MEDS: hydrALAZINE HCl 20 MG/ML VIAL 5 MG IVPUSH (00:02)
[2021-06-20] MEDS: Dextrose 5 % and 0.45 % NaCl 1,000 ML 100 ML IVCONT ×3 (02:31→22:39)
[2021-06-20 07:34] LABS: Hematocrit 37.9 % (37-47); Hemoglobin 12.5 g/dl (12.0-16.0); Mean Corpuscular Hemoglobin 30.9 pg (27.0-33.0); Mean Corpuscular Volume 93.8 fL (80-98); Mean Platelet Volume 9.7 fL (9.4-12.3); Platelet Count 242 X10*3/uL (160-400); Red Blood Count 4.04 X10*6/uL (4.20-5.50); Red Cell Distribution Width 12.8 % (11.0-16.0); White Blood Count 9.5 X10*3/uL (4.8-10.8)
--- NOTE | 2021-06-20 08:03 | HO.PM.IMPN ---
Subjective Subjective Date of Service: 06/20/21 Interval History: seen in f/u for abdominal pain, diarrhea. Still reporting some RLQ area pain and tenderness, multiple episodes of diarrhea, up to 5 since the last 2 hours, no blood noted. H/H remains stable. Review of Systems no fever +abdominal pain +diarrhea Physical Exam Vital Signs: Vital Signs: Last Vital Signs Temp 96.8 F 06/20/21 07:21 Pulse 60 06/20/21 07:21 Resp 18 06/20/21 07:21 BP 140/70 H 06/20/21 07:21 Pulse Ox 99 06/20/21 07:21 Body Mass Index 26.4 General: AO X 3, no acute distress Resp: CTA bilateral CVS: S1,S2,RRR GI: +BS,RLQ tenderness, no distention Skin: No rash Neuro: motor grossly intact Psych: appropriate affect Objective Data Active Medications Ascorbic Acid (Ascorbic Acid 500 Mg Tablet) 500 mg PO DAILY [facility] Atorvastatin Calcium (Atorvastatin Calcium 80 Mg Tablet) 80 mg PO BEDTIME [facility] Last Admin: 06/19/21 20:48 Dose: 80 mg Documented by: KEREN Diltiazem HCl (Diltiazem Hcl Cd 120 Mg Cap.Er.Deg) 120 mg PO DAILY [facility]; Protocol Ferrous Sulfate (Ferrous Sulfate 324 Mg Tablet.Dr) 324 mg PO BID [facility] Last Admin: 06/19/21 20:48 Dose: 324 mg Documented by: KEREN Gabapentin (Gabapentin 300 Mg Capsule) 300 mg PO BID [facility] Last Admin: 06/19/21 20:48 Dose: 300 mg Documented by: KEREN Dextrose/Sodium Chloride (D51/2ns) 1,000 mls @ 100 mls/hr IVCONT .Q10H [facility] Last Admin: 06/20/21 02:31 Dose: 100 mls/hr Documented by: KEREN Loratadine (Loratadine 10 Mg Tablet) 10 mg PO BEDTIME [facility] Last Admin: 06/19/21 20:48 Dose: 10 mg Documented by: KEREN Magnesium Oxide (Magnesium Oxide 400 Mg Tablet) 400 mg PO BEDTIME [facility] Last Admin: 06/19/21 20:48 Dose: 400 mg Documented by: KEREN Nitroglycerin (Nitroglycerin 0.4 Mg Tab.Subl) 0.4 mg SUBLINGUAL Q5M PRN PRN Reason: CHEST PAIN Omeprazole (Omeprazole 40 Mg Capsule.Dr) 40 mg PO DAILY@0630 [facility] Pharmacy Consult (Consult Rx Perform Med Rec) 1 each MISCELLANE ONCE PRN PRN Reason: Consult order Psyllium Hydrophilic Mucilloid (Psyllium Seed 3.4 Gm Powd.Pack) 3.4 gm PO BEDTIME [facility] Last Admin: 06/19/21 20:48 Dose: 3.4 gm Documented by: KEREN Sodium Chloride (0.9 % Sodium Chloride Flush 3 Ml Syringe) 3 ml IVFLUSH QSHIFT [facility] Last Admin: 06/20/21 00:23 Dose: Not Given Documented by: KEREN Non-Admin Reason: IV Running Spironolactone (Spironolactone 25 Mg Tablet) 25 mg PO DAILY [facility]; Protocol Labs CBC & Chem 7: 06/20/21 07:19 06/19/21 11:30 Labs: Laboratory Results - last 24 hr 06/19/21 06/19/21 06/19/21 11:30 11:30 11:30 MCV 94.9 MCH 31.7 MCHC 33.4 RDW 13.0 Plt Count 244 MPV 9.5 Immature Gran % (Auto) 0.2 Neut % (Auto) 67.4 Lymph % (Auto) 26.1 Luna % (Auto) 5.6 Eos % (Auto) 0.4 Baso % (Auto) 0.3 Lymph # (Auto) 2.5 Luna # (Auto) 0.5 Eos # (Auto) 0.0 Baso # (Auto) 0.0 Abs Immat Gran (auto) 0.02 Absolute Neuts (auto) 6.3 Absolute Nucleated RBC 0.000 Nucleated RBC % (auto) 0.0 PT INR APTT Anion Gap 12 Estim Creat Clear Calc 34.3 Estimated GFR 57 Random Glucose 90 Lactic Acid 1.7 Calcium 10.1 D Total Bilirubin 0.5 Direct Bilirubin 0.2 AST 19 ALT 15 Alkaline Phosphatase 97 Troponin I High Sens B-Natriuretic Peptide Total Protein 6.9 Albumin 4.2 Lipase 33 Stool Occult Blood COVID-19 (EMETERIO) COVID-19 Clin Com 06/19/21 06/19/21 06/19/21 11:30 11:30 11:54 MCV MCH MCHC RDW Plt Count MPV Immature Gran % (Auto) Neut % (Auto) Lymph % (Auto) Luna % (Auto) Eos % (Auto) Baso % (Auto) Lymph # (Auto) Luna # (Auto) Eos # (Auto) Baso # (Auto) Abs Immat Gran (auto) Absolute Neuts (auto) Absolute Nucleated RBC Nucleated RBC % (auto) PT 12.0 INR 1.1 APTT 35.4 Anion Gap Estim Creat Clear Calc Estimated GFR Random Glucose Lactic Acid Calcium Total Bilirubin Direct Bilirubin AST ALT Alkaline Phosphatase Troponin I High Sens 10.9 B-Natriuretic Peptide < 10 Total Protein Albumin Lipase Stool Occult Blood COVID-19 (EMETERIO) Negative COVID-19 Clin Com See Note 06/19/21 06/20/21 11:54 07:19 MCV 93.8 MCH 30.9 MCHC 33.0 RDW 12.8 Plt Count 242 MPV 9.7 Immature Gran % (Auto) Neut % (Auto) Lymph % (Auto) Luna % (Auto) Eos % (Auto) Baso % (Auto) Lymph # (Auto) Luna # (Auto) Eos # (Auto) Baso # (Auto) Abs Immat Gran (auto) Absolute Neuts (auto) Absolute Nucleated RBC 0.000 Nucleated RBC % (auto) 0.0 PT INR APTT Anion Gap Estim Creat Clear Calc Estimated GFR Random Glucose Lactic Acid Calcium Total Bilirubin Direct Bilirubin AST ALT Alkaline Phosphatase Troponin I High Sens B-Natriuretic Peptide Total Protein Albumin Lipase Stool Occult Blood NEGATIVE COVID-19 (EMETERIO) COVID-19 Clin Com Assessment and Plan (1) Diarrhea: Status: Acute (2) Abnormal CT of the abdomen: Status: Acute (3) Dark stools: Status: Acute (4) PAC (premature atrial contraction): Status: Acute Assessment and Plan: 80 year female with HTN, 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 normal Hgb and hematocrit and ? CT finding of appendicoliths or appendicitis. Plan: 1/Diarrhea, check cdif, there is no evicende of blodd and H/H is stable. -GI consult 2/Abnormal CT finding in the area of the apendice, surgery following 3/HTN--continue cardizem 4/ HLD--Lipitor 5/DVT prophylaxis--mechanical device for now Quality Stroke Does the patient have a stroke diagnosis?: No VTE Prior VTE?: Yes VTE Risk Level:: Medical - low VTE Device Contraindication: N/A - Device Ordered VTE Drug Contraindication: Treatment Not Indicated
[2021-06-20] MEDS: Ferrous Sulfate 324 MG TABLET.DR PO ×2 (09:04→21:12)
[2021-06-20] MEDS: Spironolactone 25 MG TABLET PO (09:05)
[2021-06-20] MEDS: Ascorbic Acid 500 MG TABLET PO (09:05)
[2021-06-20] MEDS: Gabapentin 300 MG CAPSULE PO ×2 (09:07→21:12)
[2021-06-20] MEDS: dilTIAZem HCL CD 120 MG CAP.ER.DEG PO (09:07)
[2021-06-20] MEDS: Omeprazole 40 MG CAPSULE.DR PO (09:11)
--- NOTE | 2021-06-20 15:41 | P.CNGI_ITS ---
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 She subsequently had take down of colostomy. HPI narrative: [age] year female came in for evaluation left lower abdominal pain and black stool. Patient woke up today with stool incontinent of black watery diarrhea, patient is not taking anticoagulation, patient has been evaluated in the past by GI for similar presentation and she was taking Tylenol that was discontinued and the plank stool improved until today, patient also taking iron pills every day. Patient is complaining of mild left lower quadrant tenderness, no nausea, no vomiting.? Pain is localized to the left lower quadrant with no radiation described as intermittent, mild ache, 5/10, associated with 1 time of black watery loose stool . Pt complains of rt sided abdominal pain (radiating to the back) and diarrhea since October 2020. Stool are muddy, dark in color and foul smelling. She woke up yesterday with worsening diarrhea with bowel accidents and came to the ER. She reports her abdomen starts bubbling and she has to kimbrough to the bathroom every time she eats or drinks (had 30 BMs yesterday). She also notes nausea and decreased appetite and denies vomiting. Patient notes decreased appetite with wt loss of 8 lbs and denies symptoms of heartburn, dysphagia. Patient denies major cardiac or pulmonary problems, loud snoring or sleep apnea Denies problems with anesthesia in the past. Denies being on chronic anticoagulation or NSAIDS - only takes acetaminophen. 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 She has 6 children and > 20 grand kids. Patient denies known family history of colon polyps, colon cancer or other GI malignancies. Labs showed normal CBC, LFTs and lipase. Stool occult blood was negative. IMAGING STUDIES: ABD CT SCAN SHOWED (personally reviewed with radiology): There is evidence of previous surgery to the sigmoid colon, distal right colon/transverse flexure and the small bowel. There is diverticulosis of the colon. No evidence of diverticulitis is seen. There are slightly distended fluid-filled loops of small bowel seen in the pelvis near the surgical anastomosis questionable for partial small bowel obstruction. There is a blind ending tubular structure in the right lower quadrant measuring up to 2 cm in diameter. This is is filled with fluid and contains multiple calcifications. The surrounding fat is normal. Appearance is questionable for a dilated appendix versus a dilated loop of small bowel with stone.. There is a small diverticulum adjacent to the posterior proximal stomach. There is question of gallbladder wall thickening of the proximal stomach. PAST COLONOSCOPY: 02/2017 FLEX SIG WAS PERFORMED BY DR OCAMPO PRIOR TO COLOSTOMY TAKEDOWN: Showed edematous and friable mucosa without ulcers. Bx was negative for IBD. Review of Systems Constitutional: Constitutional: Denies fever(s), Denies headache(s) and Rep orts weight loss Eyes: Eyes: Denies eye discharge and Denies irritation ENT: Reports Normal hearing present, Denies dysphagia, Denies dizziness and Denies headache(s) Cardiovascular: Cardiovascular: Denies chest pain, Denies leg edema and Denies dyspnea on exertion Respiratory: Respiratory: Denies cough and Denies dyspnea on exertion Gastrointestinal: Gastrointestinal: Reports abdominal pain, Reports bloating, Denies change in bowel habits, Denies dysphagia, Denies heartburn and Reports diarrhea Genitourinary: Genitourinary: Denies difficulty voiding and Denies dysuria Musculoskeletal: Musculoskeletal: Denies back pain and Denies arthralgias Integumentary/Breasts: Skin/Breast: Denies pruritus, Denies rash and Denies jaundice Neurologic: Reports Normal hearing present, Denies Abnormal speech present, Denies dizziness, Denies headache(s) and Denies seizure-like activity Psychiatric: Psychiatric: Denies anxiety, Denies depression and Denies panic attacks Endocrine: Endocrine: Denies cold intolerance, Denies flushing and Denies heat intolerance PMFSH Past Medical History Medical History Abnormal EKG Anemia Chest discomfort Dark stools DVT (deep venous thrombosis) Gastritis GERD (gastroesophageal reflux disease) HTN (hypertension) PAC (premature atrial contraction) Pulmonary embolism Renal cyst Family History Family History Father No problems noted. Mother No problems noted. Surgical History Surgical History History of colon resection History of laparoscopic cholecystectomy Social History Social History Household Members: Family Housing: House Do you presently have visiting nurse or other home services: No Alcohol intake: never Patient Tobacco Use Status: Never used Tobacco service: No Current occupational status: retired Meds Allergies Allergy/AdvReac Type Severity Reaction Status Date / Time latex Allergy Rash Verified 12/13/20 11:14 Latex Gloves Allergy Unknown rash Uncoded 12/13/20 11:14 Anjali spice Allergy Unknown Rash Uncoded 12/13/20 11:14 Active Medications: Current Medications Ascorbic Acid (Ascorbic Acid 500 Mg Tablet) 500 mg PO DAILY [facility] Last Admin: 06/20/21 09:05 Dose: 500 mg Documented by: Atorvastatin Calcium (Atorvastatin Calcium 80 Mg Tablet) 80 mg PO BEDTIME [facility] Last Admin: 06/19/21 20:48 Dose: 80 mg Documented by: Diltiazem HCl (Diltiazem Hcl Cd 120 Mg Cap.Er.Deg) 120 mg PO DAILY [facility]; Protocol Last Admin: 06/20/21 09:07 Dose: 120 mg Documented by: Ferrous Sulfate (Ferrous Sulfate 324 Mg Tablet.) 324 mg PO BID [facility] Last Admin: 06/20/21 09:04 Dose: 324 mg Documented by: Gabapentin (Gabapentin 300 Mg Capsule) 300 mg PO BID [facility] Last Admin: 06/20/21 09:07 Dose: 300 mg Documented by: Dextrose/Sodium Chloride (D51/2ns) 1,000 mls @ 100 mls/hr IVCONT .Q10H [facility] Last Admin: 06/20/21 13:24 Dose: 100 mls/hr Documented by: Loratadine (Loratadine 10 Mg Tablet) 10 mg PO BEDTIME [facility] Last Admin: 06/19/21 20:48 Dose: 10 mg Documented by: Magnesium Oxide (Magnesium Oxide 400 Mg Tablet) 400 mg PO BEDTIME [facility] Last Admin: 06/19/21 20:48 Dose: 400 mg Documented by: Nitroglycerin (Nitroglycerin 0.4 Mg Tab.Subl) 0.4 mg SUBLINGUAL Q5M PRN PRN Reason: CHEST PAIN Omeprazole (Omeprazole 40 Mg Capsule.) 40 mg PO DAILY@0630 [facility] Last Admin: 06/20/21 09:11 Dose: 40 mg Documented by: Pharmacy Consult (Consult Rx Perform Med Rec) 1 each MISCELLANE ONCE PRN PRN Reason: Consult order Psyllium Hydrophilic Mucilloid (Psyllium Seed 3.4 Gm Powd.Pack) 3.4 gm PO BEDTIME [facility] Last Admin: 06/19/21 20:48 Dose: 3.4 gm Documented by: Sodium Chloride (0.9 % Sodium Chloride Flush 3 Ml Syringe) 3 ml IVFLUSH QSHIFT [facility] Last Admin: 06/20/21 09:08 Dose: Not Given Documented by: Spironolactone (Spironolactone 25 Mg Tablet) 25 mg PO DAILY [facility]; Protocol Last Admin: 06/20/21 09:05 Dose: 25 mg Documented by: Home Medications Medication Instructions Recorded Confirmed Last Taken Type ferrous sulfate 325 mg (65 mg 1 tab PO BID 09/21/20 06/19/21 06/18/21 History iron) tablet gabapentin 300 mg capsule 1 cap PO BID 09/21/20 06/19/21 06/18/21 History ascorbate calcium (vitamin C) 500 500 mg PO DAILY 11/11/20 06/19/21 06/18/21 History mg tablet atorvastatin 80 mg tablet 80 mg PO BEDTIME 11/11/20 06/19/21 06/18/21 History psyllium husk 0.4 gram capsule 0.4 g PO BEDTIME 05/10/21 06/19/21 06/18/21 History (Metamucil) spironolactone 25 mg tablet 25 mg PO DAILY 05/10/21 06/19/21 06/18/21 History loratadine 10 mg tablet 1 tab PO BEDTIME 06/19/21 06/19/21 06/18/21 History magnesium oxide 500 mg capsule 500 mg PO BEDTIME 06/19/21 06/19/21 06/18/21 History nitroglycerin 0.4 mg sublingual 0.4 mg SUBLINGUAL DIRECTED 06/19/21 06/19/21 Unknown History tablet omeprazole 40 mg capsule,delayed 1 cap PO DAILY 06/19/21 06/19/21 06/18/21 History release Physical Exam Vital Signs: Vital Signs: Last Vital Signs Temp 97.6 F 06/20/21 11:18 Pulse 67 06/20/21 11:18 Resp 18 06/20/21 11:18 BP 141/65 H 06/20/21 11:18 Pulse Ox 100 06/20/21 11:18 Body Mass Index 26.4 Const: General: healthy appearing and no acute distress Nutritional Appearance: average body habitus Orientation/consciousness: patient oriented x3 Limitations: no limitations HENMT: Head: Yes normal to inspection Ears: hearing grossly normal bilaterally Mouth: Normal oral and palatal mucosa present Eyes: Sclerae: sclerae normal Pupils: Equal, round and reactive pupils present Neck: Neck: Yes normal visual inspection Chest: Chest palpation & inspection: normal inspection of the chest Resp: Effort & Inspection: normal respiratory effort Auscultation: clear to auscultation bilaterally Cardio: Palpation: normal PMI Rate: regular rate Rhythm: regular rhythm Heart sounds: S1 normal heart sound present, S2 normal heart sound present and no murmurs GI: Palpation (GI): Soft to palpation, Tenderness to palpation present (GI) (mild lower abdominal tenderness without rebound) and No hepatosplenomegaly present Auscultation: normal bowel sounds Rectal Exam - Female: deferred Skin: General skin exam: no rashes or lesions noted Neuro: General: patient oriented x3, gait normal and moves all extremities Cranial nerves: Yes Equal, round and reactive pupils present and Yes Normal hearing present Speech: No Abnormal speech present Psych: Appearance: grossly normal Mental Status: mental status grossly normal Affect: Anxious affect present Results Labs CBC & Chem 7: 06/20/21 07:19 06/19/21 11:30 Labs: Short CBC 06/20/21 Range/Units 07:19 WBC 9.5 (4.8-10.8) X10*3/uL Hgb 12.5 (12.0-16.0) g/dl Hct 37.9 (37-47) % Plt Count 242 (160-400) X10*3/uL Assessment and Plan (1) Diarrhea: Status: Acute (2) Abnormal CT of the abdomen: Status: Acute 80 Y AA F with GERD, Htn and PAC admitted with 6 month hx of abdominal pain, bloating and muddy, foul smelling diarrhea with decreased appetite and wt loss. Pt is status post multiple abd surgeries including sigmoid resection for diverticular stricture. Abd CT scan showed slightly distended fluid-filled loops of small bowel seen in the pelvis near the surgical anastomosis questionable for partial small bowel obstruction. There is a blind ending tubular structure in the right lower quadrant measuring up to 2 cms in diameter. This is is filled with fluid and contains multiple calcifications . The surrounding fat is normal - ?dilated appendix versus a dilated loop of small bowel with stones ? related to anastomotic stricture. RECOMMENDATIONS: 1. Check stool for C Diff. 2. Obtain CT enterorography in the am to better define tubular structure in the RLQ ? dilated appendix versus small bowel. Pt denies having an appendectomy in the past. 3. Dr Ocampo to FU with the patient in the am. Procedures Date of Service Date of Service: 06/20/21
[2021-06-20] MEDS: Atorvastatin Calcium 80 MG TABLET PO (21:12)
[2021-06-20] MEDS: Magnesium Oxide 400 MG TABLET PO (21:12)
[2021-06-20] MEDS: Loratadine 10 MG TABLET PO (21:12)
[2021-06-20] MEDS: 0.9 % Sodium Chloride Flush 3 ML SYRINGE IVFLUSH (21:13)
[2021-06-21 03:57] VITALS: BP 147/71; PULSE 52; RESP 17; TEMP 36.8; O2SAT 99
[2021-06-21] MEDS: Omeprazole 40 MG CAPSULE.DR PO (05:28)
[2021-06-21 07:39] VITALS: BP 180/77; PULSE 56; RESP 17; TEMP 36.1; O2SAT 100
[2021-06-21] MEDS: dilTIAZem HCL CD 120 MG CAP.ER.DEG PO (09:05)
[2021-06-21] MEDS: Spironolactone 25 MG TABLET PO (09:05)
[2021-06-21] MEDS: Ascorbic Acid 500 MG TABLET PO (09:05)
[2021-06-21] MEDS: Gabapentin 300 MG CAPSULE PO ×2 (09:05→20:44)
[2021-06-21] MEDS: Dextrose 5 % and 0.45 % NaCl 1,000 ML 100 ML IVCONT ×2 (09:05→20:45)
[2021-06-21] MEDS: Ferrous Sulfate 324 MG TABLET.DR PO ×2 (09:05→20:44)
[2021-06-21 12:00] VITALS: BP 142/66; PULSE 58; RESP 16; TEMP 36.4; O2SAT 99
[2021-06-21] MEDS: iohexoL 350 MG/ML 100 ML INFUS..BTL IV (14:25)
[2021-06-21 15:11] VITALS: BP 195/78; PULSE 62; RESP 14; TEMP 35.8; O2SAT 99
[2021-06-21] MEDS: 0.9 % Sodium Chloride Flush 3 ML SYRINGE IVFLUSH (15:34)
--- NOTE | 2021-06-21 16:27 | MHC.CM.PN ---
IMM 06/21 DISCUSSED WITH PATIENT AND SIGNED. 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 SHE IS HOPING FOR GI MD TO SPEAK WITH HER PRIOR TO IMM 06/21 IN CHART.
--- NOTE | 2021-06-21 16:46 | PM.PNGS ---
Subjective Subjective Date of Service: 06/21/21 Interval history: Patient says that she still has dark tarry stools She continues to have way low intensity abdominal pain She says that this is not new and states that she has had this since October 2020 Physical Exam Vital Signs: Vital Signs: Last Vital Signs Temp 96.5 F L 06/21/21 15:11 Pulse 62 06/21/21 15:11 Resp 14 06/21/21 15:11 BP 195/78 H 06/21/21 15:11 Pulse Ox 99 06/21/21 15:11 Body Mass Index 26.4 Chemistry 06/19/21 11:30 Sodium 140 Potassium 4.0 Carbon Dioxide 29 BUN 14 Creatinine 0.95 Calcium 10.1 D Hematology 06/19/21 06/20/21 11:30 07:19 WBC 9.4 9.5 Hgb 13.0 12.5 Plt Count 244 242 Const: Other: Ambulating well General: comfortable and no acute distress Resp: Effort & Inspection: normal respiratory effort Cardio: Rate: regular rate GI: Other: Mild tenderness on the lower abdomen on both sides no guarding rebound Palpation (GI): Soft to palpation, not firm and no guarding Procedures Date of Service Date of Service: 06/21/21 Progress Note: A&P Assessment and plan (1) Abnormal CT of the abdomen: Status: Acute Assessment and Plan: She has had vague abdominal pains since October, Her main complaint is her dark tarry stools as well -she has been on iron supplements Her abdomen remained soft and benign She has no leukocytosis Hemoglobin has been stable Despite CT scan being, clinically not suggestive of acute appendicitis Will continue to follow Fall Risk Details Current Medications: Current Medications Ascorbic Acid (Ascorbic Acid 500 Mg Tablet) 500 mg PO DAILY [facility] Last Admin: 06/21/21 09:05 Dose: 500 mg Documented by: Atorvastatin Calcium (Atorvastatin Calcium 80 Mg Tablet) 80 mg PO BEDTIME [facility] Last Admin: 06/20/21 21:12 Dose: 80 mg Documented by: Diltiazem HCl (Diltiazem Hcl Cd 120 Mg Cap.Er.Deg) 120 mg PO DAILY [facility]; Protocol Last Admin: 06/21/21 09:05 Dose: 120 mg Documented by: Ferrous Sulfate (Ferrous Sulfate 324 Mg Tablet.) 324 mg PO BID [facility] Last Admin: 06/21/21 09:05 Dose: 324 mg Documented by: Gabapentin (Gabapentin 300 Mg Capsule) 300 mg PO BID [facility] Last Admin: 06/21/21 09:05 Dose: 300 mg Documented by: Dextrose/Sodium Chloride (D51/2ns) 1,000 mls @ 100 mls/hr IVCONT .Q10H [facility] Last Admin: 06/21/21 09:05 Dose: 100 mls/hr Documented by: Loratadine (Loratadine 10 Mg Tablet) 10 mg PO BEDTIME [facility] Last Admin: 06/20/21 21:12 Dose: 10 mg Documented by: Magnesium Oxide (Magnesium Oxide 400 Mg Tablet) 400 mg PO BEDTIME [facility] Last Admin: 06/20/21 21:12 Dose: 400 mg Documented by: Nitroglycerin (Nitroglycerin 0.4 Mg Tab.Subl) 0.4 mg SUBLINGUAL Q5M PRN PRN Reason: CHEST PAIN Omeprazole (Omeprazole 40 Mg Capsule.Dr) 40 mg PO DAILY@0630 [facility] Last Admin: 06/21/21 05:28 Dose: 40 mg Documented by: Pharmacy Consult (Consult Rx Perform Med Rec) 1 each MISCELLANE ONCE PRN PRN Reason: Consult order Psyllium Hydrophilic Mucilloid (Psyllium Seed 3.4 Gm Powd.Pack) 3.4 gm PO BEDTIME [facility] Last Admin: 06/20/21 21:12 Dose: 3.4 gm Documented by: Sodium Chloride (0.9 % Sodium Chloride Flush 3 Ml Syringe) 3 ml IVFLUSH QSHIFT [facility] Last Admin: 06/21/21 15:34 Dose: 3 ml Documented by: Spironolactone (Spironolactone 25 Mg Tablet) 25 mg PO DAILY [facility]; Protocol Last Admin: 06/21/21 09:05 Dose: 25 mg Documented by: Time Spent With Patient Time: Total time spent is greater than 50% in coordination of care (as documented) at patient's floor/unit and/or counseling patient: Time with patient: 15 - 24 minutes Quality Stroke Does the patient have a stroke diagnosis?: No VTE Prior VTE?: Yes VTE Risk Level:: Medical - low VTE Device Contraindication: N/A - Device Ordered VTE Drug Contraindication: Treatment Not Indicated
--- NOTE | 2021-06-21 17:53 | HO.PM.IMPN ---
Subjective Subjective Date of Service: 06/21/21 Interval History: seen in f/u for abdominal pain, diarrhea. Still reporting some RLQ area pain and tenderness, still with abdominal pain Review of Systems no fever +abdominal pain +diarrhea Physical Exam Vital Signs: Vital Signs: Last Vital Signs Temp 96.5 F L 06/21/21 15:11 Pulse 62 06/21/21 15:11 Resp 14 06/21/21 15:11 BP 195/78 H 06/21/21 15:11 Pulse Ox 99 06/21/21 15:11 Body Mass Index 26.4 General: AO X 3, no acute distress Resp: CTA bilateral CVS: S1,S2,RRR GI: +BS, NT, no distention Skin: No rash Neuro: motor grossly intact Psych: appropriate affect Objective Data Active Medications Ascorbic Acid (Ascorbic Acid 500 Mg Tablet) 500 mg PO DAILY [facility] Last Admin: 06/21/21 09:05 Dose: 500 mg Documented by: JESSICA Atorvastatin Calcium (Atorvastatin Calcium 80 Mg Tablet) 80 mg PO BEDTIME [facility] Last Admin: 06/20/21 21:12 Dose: 80 mg Documented by: PASCUAL Diltiazem HCl (Diltiazem Hcl Cd 120 Mg Cap.Er.Deg) 120 mg PO DAILY [facility]; Protocol Last Admin: 06/21/21 09:05 Dose: 120 mg Documented by: JESSICA Ferrous Sulfate (Ferrous Sulfate 324 Mg Tablet.Dr) 324 mg PO BID [facility] Last Admin: 06/21/21 09:05 Dose: 324 mg Documented by: JESSICA Gabapentin (Gabapentin 300 Mg Capsule) 300 mg PO BID [facility] Last Admin: 06/21/21 09:05 Dose: 300 mg Documented by: JESSICA Dextrose/Sodium Chloride (D51/2ns) 1,000 mls @ 100 mls/hr IVCONT .Q10H [facility] Last Admin: 06/21/21 09:05 Dose: 100 mls/hr Documented by: JESSICA Loratadine (Loratadine 10 Mg Tablet) 10 mg PO BEDTIME [facility] Last Admin: 06/20/21 21:12 Dose: 10 mg Documented by: EDUINILLuke Magnesium Oxide (Magnesium Oxide 400 Mg Tablet) 400 mg PO BEDTIME [facility] Last Admin: 06/20/21 21:12 Dose: 400 mg Documented by: PASCUAL Nitroglycerin (Nitroglycerin 0.4 Mg Tab.Subl) 0.4 mg SUBLINGUAL Q5M PRN PRN Reason: CHEST PAIN Omeprazole (Omeprazole 40 Mg Capsule.Dr) 40 mg PO DAILY@0630 [facility] Last Admin: 06/21/21 05:28 Dose: 40 mg Documented by: PASCUAL Pharmacy Consult (Consult Rx Perform Med Rec) 1 each MISCELLANE ONCE PRN PRN Reason: Consult order Psyllium Hydrophilic Mucilloid (Psyllium Seed 3.4 Gm Powd.Pack) 3.4 gm PO BEDTIME [facility] Last Admin: 06/20/21 21:12 Dose: 3.4 gm Documented by: PASCUAL Sodium Chloride (0.9 % Sodium Chloride Flush 3 Ml Syringe) 3 ml IVFLUSH QSHIFT [facility] Last Admin: 06/21/21 15:34 Dose: 3 ml Documented by: JESSICA Spironolactone (Spironolactone 25 Mg Tablet) 25 mg PO DAILY [facility]; Protocol Last Admin: 06/21/21 09:05 Dose: 25 mg Documented by: JESSICA Labs CBC & Chem 7: 06/20/21 07:19 06/19/21 11:[address] scan - abdomen: Radiologist's impression: Impressions Enterography CT 06/21/21 14:04 IMPRESSION: Multiple enteroliths seen in the distal small bowel and proximal large bowel. This may be related to postsurgical changes, bowel stasis or infection. There are postsurgical changes to the small bowel in the low midline pelvis, proximal transverse colon and sigmoid colon with anastomotic staple lines. There is focal dilatation of the small bowel at the surgical anastomosis. There is no evidence of obstruction. Diverticulosis of the colon. No evidence of diverticulitis. Appendix not seen. Well-distended stomach with small posterior proximal gastric diverticulum. No mass New right hydronephrosis and bilateral ureteral dilatation. This may be related to bladder distention. . Other stable findings from yesterday's exam. 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 normal Hgb and hematocrit and ? CT finding of appendicoliths or appendicitis. Plan: 1/Diarrhea, check cdif, there is no evicende of blodd and H/H is stable. 2/Abnormal CT finding in the area of the apendice, surgery following -CT enterography today no acute finding --see full report above -advance diet, -gi for further input 3/HTN--continue cardizem 4/ HLD--Lipitor 5/DVT prophylaxis--mechanical device for now Quality Stroke Does the patient have a stroke diagnosis?: No VTE Prior VTE?: Yes VTE Risk Level:: Medical - low VTE Device Contraindication: N/A - Device Ordered VTE Drug Contraindication: Treatment Not Indicated
[2021-06-21 19:46] VITALS: BP 196/80; PULSE 58; RESP 14; TEMP 36.4; O2SAT 99
[2021-06-21] MEDS: Magnesium Oxide 400 MG TABLET PO (20:44)
[2021-06-21] MEDS: Atorvastatin Calcium 80 MG TABLET PO (20:44)
[2021-06-21] MEDS: Loratadine 10 MG TABLET PO (20:44)
[2021-06-21 23:29] VITALS: BP 146/73; PULSE 64; RESP 16; TEMP 36.5; O2SAT 99
[2021-06-22] VITALS (7 sets, daily range): BP systolic 125–166; BP diastolic 58–73; PULSE 55–72; RESP 16–18; TEMP 36.2–36.9; O2SAT 98–100
[2021-06-22] MEDS: Omeprazole 40 MG CAPSULE.DR PO (06:20)
[2021-06-22] MEDS: Dextrose 5 % and 0.45 % NaCl 1,000 ML 100 ML IVCONT (06:21)
[2021-06-22] MEDS: dilTIAZem HCL CD 120 MG CAP.ER.DEG PO (08:44)
[2021-06-22] MEDS: Gabapentin 300 MG CAPSULE PO ×2 (08:45→19:15)
[2021-06-22] MEDS: Spironolactone 25 MG TABLET PO (08:45)
[2021-06-22] MEDS: Ascorbic Acid 500 MG TABLET PO (08:45)
[2021-06-22] MEDS: Ferrous Sulfate 324 MG TABLET.DR PO (08:45)
--- NOTE | 2021-06-22 15:53 | HO.PM.IMPN ---
Subjective Subjective Date of Service: 06/22/21 Interval History: Seen in f/u for abdominal pain, feels better Review of Systems Gen: no fever Resp: no sob, no cough CV: no chest, no RAMIREZ, no leg edema GI: some abd pain, diarrhea Neuro: No confusion Physical Exam Vital Signs: Vital Signs: Last Vital Signs Temp 98.4 F 06/22/21 15:23 Pulse 62 06/22/21 15:23 Resp 16 06/22/21 15:23 BP 144/61 H 06/22/21 15:23 Pulse Ox 99 06/22/21 15:23 Body Mass Index 26.4 General: AO X 3, no acute distress Resp: CTA bilateral CVS: S1,S2,RRR GI: +BS, non-specific tenderness Skin: No rash Neuro: motor grossly intact Psych: appropriate affect Objective Data Active Medications Ascorbic Acid (Ascorbic Acid 500 Mg Tablet) 500 mg PO DAILY [facility] Last Admin: 06/22/21 08:45 Dose: 500 mg Documented by: SILVANA Atorvastatin Calcium (Atorvastatin Calcium 80 Mg Tablet) 80 mg PO BEDTIME [facility] Last Admin: 06/21/21 20:44 Dose: 80 mg Documented by: MICHAELA Diltiazem HCl (Diltiazem Hcl Cd 120 Mg Cap.Er.Deg) 120 mg PO DAILY [facility]; Protocol Last Admin: 06/22/21 08:44 Dose: 120 mg Documented by: SILVANA Ferrous Sulfate (Ferrous Sulfate 324 Mg Tablet.) 324 mg PO BID [facility] Last Admin: 06/22/21 08:45 Dose: 324 mg Documented by: SILVANA Gabapentin (Gabapentin 300 Mg Capsule) 300 mg PO BID [facility] Last Admin: 06/22/21 08:45 Dose: 300 mg Documented by: SILVANA Loratadine (Loratadine 10 Mg Tablet) 10 mg PO BEDTIME [facility] Last Admin: 06/21/21 20:44 Dose: 10 mg Documented by: MICHAELA Magnesium Oxide (Magnesium Oxide 400 Mg Tablet) 400 mg PO BEDTIME [facility] Last Admin: 06/21/21 20:44 Dose: 400 mg Documented by: MICHAELA Nitroglycerin (Nitroglycerin 0.4 Mg Tab.Subl) 0.4 mg SUBLINGUAL Q5M PRN PRN Reason: CHEST PAIN Omeprazole (Omeprazole 40 Mg Capsule.) 40 mg PO DAILY@0630 [facility] Last Admin: 06/22/21 06:20 Dose: 40 mg Documented by: DAYRON Pharmacy Consult (Consult Rx Perform Med Rec) 1 each MISCELLANE ONCE PRN PRN Reason: Consult order Psyllium Hydrophilic Mucilloid (Psyllium Seed 3.4 Gm Powd.Pack) 3.4 gm PO BEDTIME [facility] Last Admin: 06/21/21 20:44 Dose: 3.4 gm Documented by: MICHAELA Sodium Chloride (0.9 % Sodium Chloride Flush 3 Ml Syringe) 3 ml IVFLUSH QSHIFT [facility] Last Admin: 06/22/21 15:08 Dose: Not Given Documented by: COTCHARLIE Non-Admin Reason: IV Running Spironolactone (Spironolactone 25 Mg Tablet) 25 mg PO DAILY [facility]; Protocol Last Admin: 06/22/21 08:45 Dose: 25 mg Documented by: SILVANA Labs CBC & Chem 7: 06/20/21 07:19 06/19/21 11:30 Assessment and Plan (1) Abnormal CT of the abdomen: Status: Acute (2) Diarrhea: Status: Acute (3) Dark stools: Status: Acute Assessment and Plan: 80 year female with HTN, 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 normal Hgb and hematocrit and ? CT finding of appendicoliths or appendicitis. Plan: 1/Diarrhea, check cdif, there is no evicende of blodd and H/H is stable. 2/Abnormal CT finding in the area of the apendice, surgery following -CT enterography today no acute finding --see full report above -advance diet to soft diet -gi for further input -cdif not yet collected 3/HTN--continue cardizem 4/ HLD--Lipitor 5/DVT prophylaxis--mechanical device for now Quality Stroke Does the patient have a stroke diagnosis?: No VTE Prior VTE?: Yes VTE Risk Level:: Medical - low VTE Device Contraindication: N/A - Device Ordered VTE Drug Contraindication: Treatment Not Indicated
--- NOTE | 2021-06-22 18:44 | P.PNGI_ITS ---
Subjective Subjective Date of Service: 06/22/21 Interval History: Her granddaughter is present. Patient presently denies abdominal pains, N/V, nor diarrhea. However, she is just starting to eat food today. She has been having some frequent and looser stools at home. They are dark but without definitive melena nor bleeding. Critical Care Time (minutes): 0 Physical Exam Vital Signs: Vital Signs: Last Vital Signs Temp 98.4 F 06/22/21 15:23 Pulse 62 06/22/21 15:23 Resp 16 06/22/21 15:23 BP 144/61 H 06/22/21 15:23 Pulse Ox 99 06/22/21 15:23 Body Mass Index 26.4 Const: General: cooperative, healthy appearing, comfortable, no acute distress and well developed GI: Other: Abdominal exam is soft, NT, nondistended, +BS, no mass/rebound/guarding Objective Data Labs CBC & Chem 7: 06/20/21 07:19 06/19/21 11:[address] scan - abdomen: Radiologist's impression: There was no sign of obstruction nor any obvious bowel inflammation Procedures Date of Service Date of Service: 06/22/21 Progress Note: A&P Assessment and plan (1) Diarrhea: Status: Acute Assessment and Plan: Imp: Overall, she appears well at the present time. Her abdominal exam is benign. Her w/u has been negative for any sign of bowel obstruction, active bleeding, nor any definitive signs of IBD. Given her bowel surgeries in 2017 and CCY in 2019, I wonder if she has a component of some bile-induced diarrhea with increased frequency, darker color, and softer consistency as she describes it. Rec: She might benefit from a trial of cholestyramine eventually in regard to her more frequent and looser BM's. However, I would hold off on that for the time being since she is just starting her diet. I advised her that she might need a colonoscopy at some point as well. I think that if she is stable she can be discharged and I can see her as an outpatient for F/U and then decide about further treatment and diagnostic options. D/W patient and her granddaughter. Th cristiane (2) Dark stools: Status: Acute Fall Risk Details Current Medications: Current Medications Ascorbic Acid (Ascorbic Acid 500 Mg Tablet) 500 mg PO DAILY [facility] Last Admin: 06/22/21 08:45 Dose: 500 mg Documented by: Atorvastatin Calcium (Atorvastatin Calcium 80 Mg Tablet) 80 mg PO BEDTIME [facility] Last Admin: 06/21/21 20:44 Dose: 80 mg Documented by: Diltiazem HCl (Diltiazem Hcl Cd 120 Mg Cap.Er.Deg) 120 mg PO DAILY [facility]; Protocol Last Admin: 06/22/21 08:44 Dose: 120 mg Documented by: Ferrous Sulfate (Ferrous Sulfate 324 Mg Tablet.) 324 mg PO BID [facility] Last Admin: 06/22/21 08:45 Dose: 324 mg Documented by: Gabapentin (Gabapentin 300 Mg Capsule) 300 mg PO BID [facility] Last Admin: 06/22/21 08:45 Dose: 300 mg Documented by: Loratadine (Loratadine 10 Mg Tablet) 10 mg PO BEDTIME [facility] Last Admin: 06/21/21 20:44 Dose: 10 mg Documented by: Magnesium Oxide (Magnesium Oxide 400 Mg Tablet) 400 mg PO BEDTIME [facility] Last Admin: 06/21/21 20:44 Dose: 400 mg Documented by: Nitroglycerin (Nitroglycerin 0.4 Mg Tab.Subl) 0.4 mg SUBLINGUAL Q5M PRN PRN Reason: CHEST PAIN Omeprazole (Omeprazole 40 Mg Capsule.) 40 mg PO DAILY@0630 [facility] Last Admin: 06/22/21 06:20 Dose: 40 mg Documented by: Pharmacy Consult (Consult Rx Perform Med Rec) 1 each MISCELLANE ONCE PRN PRN Reason: Consult order Psyllium Hydrophilic Mucilloid (Psyllium Seed 3.4 Gm Powd.Pack) 3.4 gm PO BEDTIME [facility] Last Admin: 06/21/21 20:44 Dose: 3.4 gm Documented by: Sodium Chloride (0.9 % Sodium Chloride Flush 3 Ml Syringe) 3 ml IVFLUSH QSHIFT [facility] Last Admin: 06/22/21 15:08 Dose: Not Given Documented by: Spironolactone (Spironolactone 25 Mg Tablet) 25 mg PO DAILY [facility]; Protocol Last Admin: 06/22/21 08:45 Dose: 25 mg Documented by: Time Spent With Patient Time: Total time spent is greater than 50% in coordination of care (as documented) at patient's floor/unit and/or counseling patient: Time with patient: 15 - 24 minutes Quality Stroke Does the patient have a stroke diagnosis?: No VTE Prior VTE?: Yes VTE Risk Level:: Medical - low VTE Device Contraindication: N/A - Device Ordered VTE Drug Contraindication: Treatment Not Indicated
[2021-06-22] MEDS: Loratadine 10 MG TABLET PO (19:15)
[2021-06-22] MEDS: Atorvastatin Calcium 80 MG TABLET PO (19:15)
[2021-06-22] MEDS: 0.9 % Sodium Chloride Flush 3 ML SYRINGE IVFLUSH (19:22)
[2021-06-23] VITALS: BP 119/57; PULSE 57; RESP 17; TEMP 37.1; O2SAT 99
[2021-06-23 03:33] VITALS: BP 141/64; PULSE 57; RESP 17; TEMP 36.6; O2SAT 99
[2021-06-23] MEDS: Omeprazole 40 MG CAPSULE.DR PO (06:11)
[2021-06-23 07:16] VITALS: BP 131/61; PULSE 57; RESP 16; TEMP 36.5; O2SAT 100
[2021-06-23 08:38] VITALS: BP 131/61; PULSE 57
[2021-06-23] MEDS: dilTIAZem HCL CD 120 MG CAP.ER.DEG PO (08:38)
[2021-06-23] MEDS: 0.9 % Sodium Chloride Flush 3 ML SYRINGE IVFLUSH (08:38)
[2021-06-23] MEDS: Spironolactone 25 MG TABLET PO (08:38)
[2021-06-23] MEDS: Gabapentin 300 MG CAPSULE PO (08:38)
--- NOTE | 2021-06-23 09:36 | PM.DS ---
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 She relates that she has been having dark stools since October and recently? was in [facility] with her GI doctor who told her that if it gets worse to come to the ED, today she says that she had more watery diarrhea today and some mild pain in the right lower abdominal area. H/H is stable. CT of abdomen?Question dilated fluid-filled appendix with appendicolithsversus dilated loop of distal small bowel or diverticulum with stones. Surgeon Dr. El Gallegos has seen and does nothing there appendicitis or other acute finding that need intervention. Occult blood is negative. Hospital course: 1/Diarrhea described as dark stool, has been on going since october. There was initial concern of GIB bleed but H/H has been stable and normal and occult blood is negative. Further work up including a CT of abdomen and CT engerography, initial CT reasied concern of abnormalities around apendencitits and this was evaluated by surgery with no concer for acute apendicitis and no further testing or intervention needed. She was also evaluated by GI (Dr. Blunt) with the following remark: Given her bowel surgeries in 2017 and CCY in 2019, I wonder if she has a component of some bile-induced diarrhea with increased frequency, darker color, and softer consistency as she describes it. Rec: She might benefit from a trial of cholestyramine eventually in regard to her more frequent and looser BM's. However, I would hold off on that for the time being since she is just starting her diet. I advised her that she might need a colonoscopy at some point as well. I think that if she is stable she can be discharged and I can see her as an outpatient for F/U and then decide about further treatment and diagnostic options. In the end we were not able to collect c dif sample as diarrhea stopped 3/HTN--continue cardizem 4/ HLD--Lipitor Time Spent with Patient Time attestation: Total time spent providing and/or coordinating discharge services: Discharge coordination time: Greater than 30 minutes Quality: Stroke Does the patient have a stroke diagnosis?: No Physical Exam Vital Signs: Vital Signs: Last Vital Signs Temp 97.7 F 06/23/21 07:16 Pulse 57 06/23/21 08:38 Resp 16 06/23/21 07:16 BP 131/61 06/23/21 08:38 Pulse Ox 100 06/23/21 07:16 Body Mass Index 26.4 General: AO X 3, no acute distress Resp: CTA bilateral CVS: S1,S2,RRR GI: +BS, NT, no distention Skin: No rash Neuro: motor grossly intact Psych: appropriate affect Discharge Plan Discharge Anticipated Discharge Date/Time: 06/23/21 09:33 Patient Disposition: Home, Self-Care Discharge Diagnosis: Abdominal pain, diarrhea Referrals: Feroz Reyes MD [Primary Care Provider] - 1 Week Discharge Medications: Continued diltiazem HCl 120 mg capsule,extended release 24hr 120 mg PO DAILY Qty: 90 RF: 1 ferrous sulfate 325 mg (65 mg iron) tablet 1 tab PO BID RF: 0 gabapentin 300 mg capsule 1 cap PO BID RF: 0 nitroglycerin 0.4 mg tablet, sublingual 0.4 mg sublingual DIRECTED RF: 0 loratadine 10 mg tablet 1 tab PO BEDTIME RF: 0 magnesium oxide 500 mg capsule 500 mg PO BEDTIME RF: 0 omeprazole 40 mg capsule,delayed release(DR/EC) 1 cap PO DAILY RF: 0 atorvastatin 80 mg tablet 80 mg PO BEDTIME RF: 0 ascorbate calcium (vitamin C) 500 mg tablet 500 mg PO DAILY RF: 0 spironolactone 25 mg tablet 25 mg PO DAILY RF: 0 psyllium husk [Metamucil] 0.4 gram capsule 0.4 g PO BEDTIME RF: 0 Discharge Orders: Discharge Order (Routine); Ordered 06/23/21 Ordered By: Donny Pate Diet: advance to usual diet Activity on Discharge: As tolerated Stand Alone Forms: Patient Portal Discharge page Care Plan Goals: Full work up and resolution of diarrhea Health Concerns: diarrhea and abdominal pain Plan of Treatment: Follow up with Dr. Blunt for further work up including possible colonoscopy Assessment: as above
--- NOTE | 2021-06-23 11:41 | MHC.CM.PN ---
PATIENT AGREES THAT TODAY IS A GOOD DAY TO DISCHARGE. SHE IS CALLING HER SON TO PROVIDE TRANSPORT ONCE HE LEAVES WORK (AROUND 1700) SHE IS ALSO ASKING FOR INFORMATION ON LOW-RESIDE DIET. REQUEST SENT TO [employer] [employer] [employer]. PATIENT IS ALSO AWARE THAT SHE CAN HAVE TRANSPORT ARRANGED FOR HER IF FAMILY CANNOT PROVIDE
[2021-06-23 11:54] VITALS: BP 133/63; PULSE 62; RESP 18; TEMP 36.7; O2SAT 99
--- NOTE | 2021-06-23 13:16 | MHC.CLN ---
NUTRITION PATIENT REQUESTED INFORMATION ON LOW RESIDUE/SOFT DIET. PROVIDED INFORMATION ON LOW FIBER DIET AND REVIEWED WITH PATIENT. SHE WAS UNSURE WHY DIET WAS LOW RESIDUAL SOFT AND THAT SHE DOES NOT FOLLOW THAT DIET AT HOME. I ADVISED HER TO ASK HER DOCTOR.
== END 2021-06-23 17:00 | disposition home or self-care (01) | DRG 392 ==
LOC: HO.ED 13:40 → HO.EDOVER 15:46 → HO.S3 19:23
PROVIDERS: Admitting Provider Internal Medicine; Emergency Provider Emergency Medicine; PCP Internal Medicine; Visit Provider Internal Medicine
DX: R19.5 Other fecal abnormalities (principal); R19.7 Diarrhea, unspecified; K21.9 Gastro-esophageal reflux disease without esophagitis; Z91.040 Latex allergy status; I49.1 Atrial premature depolarization; E78.5 Hyperlipidemia, unspecified; Z20.822 Contact with and (suspected) exposure to COVID-19; I10 Essential (primary) hypertension; Z86.718 Personal history of other venous thrombosis and embolism; Z79.899 Other long term (current) drug therapy
CPT/HCPCS: 36415; 74176; 74177; 80048; 80076; 82272; 83605; 83690; 83880; 84484; 85025; 85027; 85610; 85730; 87635; 93005; 96360; 99218; 99285; Q9967

== ENCOUNTER → 2021-06-27 11:50 | Outpatient (BNVA) | payer OTHER, MEDICAID, SELFPAY | PROVIDERS: PCP Internal Medicine; Visit Provider Urology | DX: N28.1 Cyst of kidney, acquired (principal) | CPT/HCPCS: 99212 ==

== ENCOUNTER 2021-07-13 08:59 | Inpatient (IN) | payer OTHER, MEDICAID, SELFPAY ==
[2021-07-13] VITALS (10 sets, daily range): BP systolic 142–198; BP diastolic 58–106; PULSE 57–87; RESP 15–18; TEMP 36.4–37.1; O2SAT 96–100; BMI 27.4; BMI 27.6
--- NOTE | ~2021-07-13 | US_ITS ---
EXAMINATION: US VENOUS ULTRASOUND WITH DOPPLER LOWER EXTREMITY, LEFT CLINICAL INFORMATION: Left lower extremity pain and swelling. Assess for occult DVT COMPARISON: Lower extremity venous ultrasound 07/14/2019, 05/11/2019 TECHNIQUE: Ultrasound of the deep veins is performed from the hip to the calf with compression sonography and color and pulse Doppler assessment. Spectral analysis with color-flow imaging is performed. FINDINGS: There is normal venous compression and respiratory variation and augmented flow. The visualized common femoral vein, superficial femoral vein, profunda femoral vein, popliteal vein, and the trifurcation region shows no evidence of deep venous thrombosis. No visible popliteal fossa cyst. US/US venous duplex LE LT IMPRESSION: No DVT demonstrated in the left lower extremity.
--- NOTE | 2021-07-13 10:30 | ECG_ITS ---
Test Reason : weakness Blood Pressure : / mmHG Vent. Rate : 059 BPM Atrial Rate : 059 BPM P-R Int : 176 ms QRS Dur : 072 ms QT Int : 432 ms P-R-T Axes : 048 042 089 degrees QTc Int : 427 ms Sinus bradycardia Nonspecific ST and T wave abnormality Abnormal ECG When compared with ECG of 19-JUN-2021 13:22, Premature atrial complexes are no longer Present Nonspecific T wave abnormality now evident in Anterior leads Referred By: Demetrius Villanueva Electronically Signed By:ELISABETH ORDONEZ MD
--- NOTE | 2021-07-13 10:34 | ED_ITS ---
HPI - Neuro Symptoms/Deficit General Chief Complaint: Neuro Symptoms/Deficit Stated Complaint: L HAND TINGLING Time Seen by Provider: 07/13/21 10:12 Source: patient Mode of arrival: ambulatory Limitations: no limitations History of Present Illness HPI Narrative: 80-year-old female who presents emergency department for evaluation of left-sided numbness, left leg cramping and weakness times 6 days. The patient states that on Saturday07/07/2021 (6 days prior to evaluation) she developed tingling this the fingers of her left hand. She states that it came on gradually but progressed to the point where it involved her entire left arm. She states that eventually she also developed left leg tingling and numbness. Patient states that she then felt that her left leg was swollen and she was having cramping/knotting sensations in her leg. She also states that her left leg was weaker than her right. She denied headache but she states she is feeling lightheaded and weak. She also states that she has noticed black, watery stools 1 month prior and her doctor started her on cholestyrone powder with improvement of her stools. States over the past 2 days however she has had who is, diarrheal stools every 30 minutes. She had chills but no fever. She denied cough, chest pain, shortness of breath, dyspnea on exertion, myalgias or arthralgias. The patient was seen by her doctor on Saturday07/10/2021 who obtained an outpatient CT scan of the patient's brain yesterday, the patient does not know the result of this scan. Patient was also given orders for blood tests which the patient has not done yet. The provider that saw the patient also stopped her iron, magnesium and vitamin sees secondary to her watery stools and dark stools. Patient states that she was concerned that her left leg was feeling weak and was cramping, she has a history of DVT therefore she came to the emergency department for evaluation. Related Data Home Medications Medication Instructions Recorded Confirmed gabapentin 300 mg capsule 300 mg PO BID 09/21/20 07/13/21 atorvastatin 80 mg tablet 80 mg PO BEDTIME 11/11/20 07/13/21 loratadine 10 mg tablet 1 tab PO BEDTIME 06/19/21 07/13/21 nitroglycerin 0.4 mg sublingual 0.4 mg SUBLINGUAL DIRECTED 06/19/21 07/13/21 tablet omeprazole 40 mg capsule,delayed 1 cap PO DAILY 06/19/21 07/13/21 release diclofenac sodium 1 % topical gel 2 g TOPICAL BID 07/13/21 07/13/21 gabapentin 100 mg capsule 100 mg PO BEDTIME 07/13/21 07/13/21 tramadol 50 mg tablet 50 mg PO BID PRN 07/13/21 07/13/21 Previous Rx's Medication Instructions Recorded amlodipine 5 mg tablet 5 mg PO DAILY #30 tab 07/15/21 cholestyramine (with sugar) 4 gram 4 g PO DAILY@0730 #30 ea 07/15/21 powder for susp in a packet magnesium oxide 400 mg PO DAILY #30 tab 07/15/21 Allergies Allergy/AdvReac Type Severity Reaction Status Date / Time latex Allergy Rash Verified 07/13/21 09:04 Latex Gloves Allergy Unknown rash Uncoded 06/27/21 12:05 Anjali spice Allergy Unknown Rash Uncoded 06/27/21 12:05 Review of Systems Review of Systems: Yes all other systems are reviewed and are negative [facility] Past Medical History [facility] Narrative: Past medical history: Reviewed below, patient has DVT was 3 years prior, she is not taking anticoagulants at this time. Past surgical history: Cholecystectomy, hysterectomy. Social history: The patient denies tobacco, alcohol and drug use. Medical History Abnormal EKG Anemia Chest discomfort Dark stools DVT (deep venous thrombosis) Gastritis GERD (gastroesophageal reflux disease) HTN (hypertension) PAC (premature atrial contraction) Pulmonary embolism Renal cyst Surgical History History of colon resection History of laparoscopic cholecystectomy Family History Family History Father No problems noted. Mother No problems noted. Social History Social History Household Members: Family Housing: House Do you presently have visiting nurse or other home services: No Alcohol intake: never Patient Tobacco Use Status: Never used Tobacco Advance Directives Date on File: 07/13/21 service: No Current occupational status: retired Physical Exam Vital Signs: Vital Signs: Last Vital Signs Temp 97.6 F 07/15/21 11:07 Pulse 67 07/15/21 11:07 Resp 17 07/15/21 11:07 BP 124/54 L 07/15/21 11:07 Pulse Ox 100 07/15/21 11:07 Body Mass Index 27.4 Const: General: cooperative and no acute distress Orientation/conscious ness: oriented to person and oriented to place Limitations: no limitations HENMT: Head: Yes normal to inspection, Yes normocephalic and Yes atraumatic Ears: external ears normal General nose exam: Normal external nose present Face and sinus: Yes normal facial exam Mouth: Normal oral and palatal mucosa present Throat: Yes posterior oropharynx normal Eyes: General: appearance normal, both eyes and all related structures Pupils: Equal, round and reactive pupils present Neck: Neck: Yes normal visual inspection, Yes no lymphadenopathy, Yes trachea midline and Yes supple Chest: Chest palpation & inspection: normal inspection of the chest and normal palpation of entire chest wall Resp: Effort & Inspection: normal respiratory effort and able to speak in complete sentences Auscultation: clear to auscultation bilaterally Cardio: Rate: regular rate Rhythm: regular rhythm Heart sounds: S1 norm al heart sound present, S2 normal heart sound present and no murmurs GI: Inspection: Yes normal to inspection Palpation (GI): Soft to palpation, nontender and no guarding Auscultation: normal bowel sounds : General: Yes no CVA tenderness Back/Spine/Pelvis: Back: no CVA tenderness Skin: General skin exam: no rashes or lesions noted Neuro: General: oriented to person and oriented to place Cranial nerves: Yes CN's II-XII intact bilaterally and Yes Equal, round and reactive pupils present Cognition (Neuro): normal cognition Motor exam (neuro): 5/5 motor strength present throughout Sensory Exam: other (Diminished light touch to the patient's left arm, left chest and left lower) Extrem: General: Yes normal to inspection Psych: Appearance: grossly normal Speech and movement: Normal speech and movement present Affect: normal affect Attitude: cooperative Thought process: Normal thought process present Thought content: Normal thought content present Course Course Course Narrative: 80-year-old female who presents emergency department for evaluation of left arm and leg numbness with left leg weakness and left leg swelling, lower extremity cramping and diarrhea times 1-2 days. Patient was seen by her PCP and had an outpatient CT scan done yesterday at 07/12/2021 which was negative for acute infarct. Patient's filled examination did reveal decreased light touch sensation to her left upper and lower extremity. Patient did have some slight swelling or left lower extremity. I ordered a CBC, CMP, magnesium, lipase, TSH, troponin, vitamin B12 and folate, PT/INR, PTT, iron profile and tick-borne illness panel. 1244: Laboratory evaluation: Mild anemia with an H&H of 11.3 and 34.2, low calcium of 7.2, magnesium below detectable limits, TSH was normal. High sensitive troponin was detectable but not elevated 7.9. B12 and folate were normal. Left lower extremity duplex ultrasound revealed no DVT. Twelve EKG revealed a sinus bradycardia otherwise was unremarkable. The patient's symptoms are most likely caused by her low magnesium and may also be related to her low calcium. Patient was ordered to get magnesium sulfate 2 g IV. Patient will need to be admitted for magnesium and calcium replacement. I will discuss the patient's presentation with the covering hospitalist. MDM - Neuro Symptoms/Deficit Lab Data Result diagrams: 07/13/21 10:45 07/15/21 06:56 Labs: Lab Results 07/13/21 07/13/21 07/13/21 Range/Units 10:45 10:45 10:45 WBC 8.0 (4.8-10.8) X10*3/uL RBC 3.62 L (4.20-5.50) X10*6/uL Hgb 11.3 L (12.0-16.0) g/dl Hct 34.2 L (37.0-47.0) % MCV 94.5 (80.0-98.0) fL MCH 31.2 (27.0-33.0) pg MCHC 33.0 (31.0-35.0) g/dl RDW 13.2 (11.0-16.0) % Plt Count 186 (160-400) X10*3/uL MPV Not Reportable Immature Gran % (Auto) 0.4 (0.0-0.4) % Neut % (Auto) 64.3 (45-73) % Lymph % (Auto) 26.7 (20-40) % [place] % (Auto) 7.4 (2-11) % Eos % (Auto) 0.8 (0-4) % Baso % (Auto) 0.4 (0-2) % Lymph # (Auto) 2.1 (1.2-4.9) X10*3/uL [place] # (Auto) 0.6 (0.1-1.2) X10*3/uL Eos # (Auto) 0.1 (0.0-0.4) X10*3/uL Baso # (Auto) 0.0 (0.0-0.2) X10*3/uL Abs Immat Gran (auto) 0.03 (0.00-0.03) X10*3/uL Absolute Neuts (auto) 5.1 (2.0-8.3) x10*3/uL Absolute Nucleated RBC 0.000 (0.0-0.012) X10*3/uL Nucleated RBC % (auto) 0.0 (0.0-0.2) /100WBC Smear Tech's Comments VERIFIED PT (9.9-13.0) SEC INR (0.9-1.1) APTT (24.1-38.0) SEC Sodium 144 (135-145) mmol/L Potassium 3.8 (3.3-5.1) mmol/L Chloride 108 (96-108) mmol/L Carbon Dioxide 26 (22-29) mmol/L Anion Gap 14 (12-20) BUN 9 (9-16) mg/dL Creatinine 0.81 (0.5-1.4) mg/dL Estim Creat Clear Calc 41.1 Estimated GFR > 60 Random Glucose 85 (60-115) mg/dL Calcium 7.2 L D (8.4-10.2) mg/dL Magnesium < 0.6 L* (1.6-2.6) mg/dL Iron 68 (30-160) mcg/dL TIBC 218 L (228-428) mcg/dL % Saturation 31 (15-50) % Unsat Iron Binding 150 ug/dL Total Bilirubin 0.5 (0.0-1.0) mg/dL AST 35 H D (5-31) U/L ALT 37 H (0-31) U/L Alkaline Phosphatase 94 (39-117) U/L Troponin I High Sens (<3.5-17.0) ng/L Total Protein 6.6 (6.5-8.0) g/dL Albumin 3.8 (3.5-5.0) g/dL Lipase 31 (8-78) U/L Vitamin B12 216 (200-900) pg/mL Folate 11.3 (> or = 4.0) ng/mL TSH (0.32-4.0) uIU/mL Urine Color Urine Appearance Urine pH (5.0-8.0) Ur Specific [place] (1.005-1.025) Urine Protein (NEG-TRACE) MG/DL Urine Glucose (UA) (NEG) MG/DL Urine Ketones (NEG) MG/DL Urine Blood (NEG) Urine Nitrite (NEG) Ur Leukocyte Esterase (NEG) Urine RBC (0) /HPF Urine WBC (0-4) /HPF Ur Squamous Epith Cells /LPF Urine Bacteria /LPF A.phagocytophil DNA PCR (NOT DETECTED) Babesia microti DNA PCR (NOT DETECTED) Borrelia sp DNA (PCR) (NOT DETECTED) Borrelia miyamotoi (PCR) (NOT DETECTED) E.chaffeensis DNA (PCR) (NOT DETECTED) Tick-borne Disease PCR 07/13/21 07/13/21 07/13/21 Range/Units 10:45 10:45 10:45 WBC (4.8-10.8) X10*3/uL RBC (4.20-5.50) X10*6/uL Hgb (12.0-16.0) g/dl Hct (37.0-47.0) % MCV (80.0-98.0) fL MCH (27.0-33.0) pg MCHC (31.0-35.0) g/dl RDW (11.0-16.0) % Plt Count (160-400) X10*3/uL MPV Immature Gran % (Auto) (0.0-0.4) % Neut % (Auto) (45-73) % Lymph % (Auto) (20-40) % [place] % (Auto) (2-11) % Eos % (Auto) (0-4) % Baso % (Auto) (0-2) % Lymph # (Auto) (1.2-4.9) X10*3/uL [place] # (Auto) (0.1-1.2) X10*3/uL Eos # (Auto) (0.0-0.4) X10*3/uL Baso # (Auto) (0.0-0.2) X10*3/uL Abs Immat Gran (auto) (0.00-0.03) X10*3/uL Absolute Neuts (auto) (2.0-8.3) x10*3/uL Absolute Nucleated RBC (0.0-0.012) X10*3/uL Nucleated RBC % (auto) (0.0-0.2) /100WBC Smear Tech's Comments PT (9.9-13.0) SEC INR (0.9-1.1) APTT (24.1-38.0) SEC Sodium (135-145) mmol/L Potassium (3.3-5.1) mmol/L Chloride (96-108) mmol/L Carbon Dioxide (22-29) mmol/L Anion Gap (12-20) BUN (9-16) mg/dL Creatinine (0.5-1.4) mg/dL Estim Creat Clear Calc Estimated GFR Random Glucose (60-115) mg/dL Calcium (8.4-10.2) mg/dL Magnesium (1.6-2.6) mg/dL Iron (30-160) mcg/dL TIBC (228-428) mcg/dL % Saturation (15-50) % Unsat Iron Binding ug/dL Total Bilirubin (0.0-1.0) mg/dL AST (5-31) U/L ALT (0-31) U/L Alkaline Phosphatase (39-117) U/L Troponin I High Sens 7.9 (<3.5-17.0) ng/L Total Protein (6.5-8.0) g/dL Albumin (3.5-5.0) g/dL Lipase (8-78) U/L Vitamin B12 (200-900) pg/mL Folate (> or = 4.0) ng/mL TSH 0.77 (0.32-4.0) uIU/mL Urine Color Urine Appearance Urine pH (5.0-8.0) Ur Specific [place] (1.005-1.025) Urine Protein (NEG-TRACE) MG/DL Urine Glucose (UA) (NEG) MG/DL Urine Ketones (NEG) MG/DL Urine Blood (NEG) Urine Nitrite (NEG) Ur Leukocyte Esterase (NEG) Urine RBC (0) /HPF Urine WBC (0-4) /HPF Ur Squamous Epith Cells /LPF Urine Bacteria /LPF A.phagocytophil DNA PCR NOT DETECTED (NOT DETECTED) Babesia microti DNA PCR NOT DETECTED (NOT DETECTED) Borrelia sp DNA (PCR) NOT DETECTED (NOT DETECTED) Borrelia miyamotoi (PCR) NOT DETECTED (NOT DETECTED) E.chaffeensis DNA (PCR) NOT DETECTED (NOT DETECTED) Tick-borne Disease PCR EDTA 07/13/21 07/13/21 Range/Units 11:55 11:55 WBC (4.8-10.8) X10*3/uL RBC (4.20-5.50) X10*6/uL Hgb (12.0-16.0) g/dl Hct (37.0-47.0) % MCV (80.0-98.0) fL MCH (27.0-33.0) pg MCHC (31.0-35.0) g/dl RDW (11.0-16.0) % Plt Count (160-400) X10*3/uL MPV Immature Gran % (Auto) (0.0-0.4) % Neut % (Auto) (45-73) % Lymph % (Auto) (20-40) % [place] % (Auto) (2-11) % Eos % (Auto) (0-4) % Baso % (Auto) (0-2) % Lymph # (Auto) (1.2-4.9) X10*3/uL [place] # (Auto) (0.1-1.2) X10*3/uL Eos # (Auto) (0.0-0.4) X10*3/uL Baso # (Auto) (0.0-0.2) X10*3/uL Abs Immat Gran (auto) (0.00-0.03) X10*3/uL Absolute Neuts (auto) (2.0-8.3) x10*3/uL Absolute Nucleated RBC (0.0-0.012) X10*3/uL Nucleated RBC % (auto) (0.0-0.2) /100WBC Smear Tech's Comments PT 13.9 H (9.9-13.0) SEC INR 1.2 H (0.9-1.1) APTT 34.5 (24.1-38.0) SEC Sodium (135-145) mmol/L Potassium (3.3-5.1) mmol/L Chloride (96-108) mmol/L Carbon Dioxide (22-29) mmol/L Anion Gap (12-20) BUN (9-16) mg/dL Creatinine (0.5-1.4) mg/dL Estim Creat Clear Calc Estimated GFR Random Glucose (60-115) mg/dL Calcium (8.4-10.2) mg/dL Magnesium (1.6-2.6) mg/dL Iron (30-160) mcg/dL TIBC (228-428) mcg/dL % Saturation (15-50) % Unsat Iron Binding ug/dL Total Bilirubin (0.0-1.0) mg/dL AST (5-31) U/L ALT (0-31) U/L Alkaline Phosphatase (39-117) U/L Troponin I High Sens (<3.5-17.0) ng/L Total Protein (6.5-8.0) g/dL Albumin (3.5-5.0) g/dL Lipase (8-78) U/L Vitamin B12 (200-900) pg/mL Folate (> or = 4.0) ng/mL TSH (0.32-4.0) uIU/mL Urine Color YELLOW Urine Appearance CLEAR Urine pH 6.5 (5.0-8.0) Ur Specific [place] 1.015 (1.005-1.025) Urine Protein TRACE (NEG-TRACE) MG/DL Urine Glucose (UA) NEG (NEG) MG/DL Urine Ketones NEG (NEG) MG/DL Urine Blood NEG (NEG) Urine Nitrite NEG (NEG) Ur Leukocyte Esterase TRACE H (NEG) Urine RBC 0-2 (0) /HPF Urine WBC 1-4 (0-4) /HPF Ur Squamous Epith Cells 2+ /LPF Urine Bacteria NONE /LPF A.phagocytophil DNA PCR (NOT DETECTED) Babesia microti DNA PCR (NOT DETECTED) Borrelia sp DNA (PCR) (NOT DETECTED) Borrelia miyamotoi (PCR) (NOT DETECTED) E.chaffeensis DNA (PCR) (NOT DETECTED) Tick-borne Disease PCR Discharge Plan Discharge Clinical Impression: Paresthesias, Hypomagnesemia, Hypocalcemia, Weakness Patient Disposition: Admitted As Inpatient Interventions: Admission Worksheet (ED) Last Done: 07/13/21 15:56 Discharge Date/Time: 07/13/21 16:11
--- NOTE | 2021-07-13 10:49 | PHA.MEDREC ---
Pharmacy Consult ? Medication Reconciliation Pharmacy has completed the medication reconciliation. Patient came in with medication list from [facility] visit on 07/10/2021. Per the summary patient is to stop ferrous sulfate, magnesium, timolol and vitamin C. Patient is to start gabapentin 100 mg at bedtime with 300 mg tablet. Luisa Crawford, [employer]
[2021-07-13 10:53] LABS: Imm Gran Abs Auto 0.03 X10*3/uL (0.00-0.03); Imm Gran Pct Auto 0.4 % (0.0-0.4); MANUAL DIFF FLAG SCAN; PLT CLUMP 1; SCAN SMEAR FLAG 1
[2021-07-13 10:54] LABS: Basophils Percent Auto 0.4 % (0-2); Eosinophils Absolute Auto 0.1 X10*3/uL (0.0-0.4); Eosinophils Percent Auto 0.8 % (0-4); Hematocrit 34.2 % (37.0-47.0); Hemoglobin 11.3 g/dl (12.0-16.0); Lymphocytes Absolute Auto 2.1 X10*3/uL (1.2-4.9); Lymphocytes Percent Auto 26.7 % (20-40); Mean Corpuscular Hemoglobin 31.2 pg (27.0-33.0); Mean Corpuscular Volume 94.5 fL (80.0-98.0); Monocytes Absolute Auto 0.6 X10*3/uL (0.1-1.2); Monocytes Percent Auto 7.4 % (2-11); Neutrophils Absolute Auto 5.1 x10*3/uL (2.0-8.3); Neutrophils Percent Auto 64.3 % (45-73); Platelet Count 186 X10*3/uL (160-400); Red Blood Count 3.62 X10*6/uL (4.20-5.50); Red Cell Distribution Width 13.2 % (11.0-16.0)
[2021-07-13 11:13] LABS: Troponin-I High Sensitivity 7.9 ng/L (<3.5-17.0)
[2021-07-13 11:27] LABS: TSH reflex Free T4 0.77 uIU/mL (0.32-4.0)
[2021-07-13 11:33] LABS: Alanine Aminotransferase 37 U/L (0-31); Albumin Level 3.8 g/dL (3.5-5.0); Alkaline Phosphatase 94 U/L (39-117); Anion Gap 14 (12-20); Aspartate Amino Transferase 35 U/L (5-31); Bilirubin Total 0.5 mg/dL (0.0-1.0); Blood Urea Nitrogen 9 mg/dL (9-16); Calcium 7.2 mg/dL (8.4-10.2); Carbon Dioxide 26 mmol/L (22-29); Chloride 108 mmol/L (96-108); Creatinine Clr Calc Pharmacy 41.1; Estimated Glomerular Filt Rate > 60; Glucose Random 85 mg/dL (60-115); Iron 68 mcg/dL (30-160); Lipase 31 U/L (8-78); Magnesium < 0.6 mg/dL (1.6-2.6); Percent Iron Saturation 31 % (15-50); Potassium 3.8 mmol/L (3.3-5.1); Sodium 144 mmol/L (135-145); Total Iron Binding Capacity 218 mcg/dL (228-428); Total Protein 6.6 g/dL (6.5-8.0); Unsaturated Iron Binding 150 ug/dL
[2021-07-13 11:45] LABS: Folate 11.3 ng/mL (> or = 4.0); Vitamin B12 216 pg/mL (200-900)
[2021-07-13 12:01] LABS: Appearance Urine CLEAR; Color Urine YELLOW; Glucose Urine UA NEG (NEG); Leukocyte Esterase Urine TRACE (NEG); Nitrite Urine NEG (NEG); PH 6.5 (5.0-8.0); Specific Gravity - Urine 1.015 (1.005-1.025); UACC Culture Trigger YES; Urine Blood NEG (NEG); Urine Ketones NEG (NEG); Urine Protein TRACE MG/DL (NEG-TRACE)
[2021-07-13 12:01] LABS: SLIDE REVIEW VERIFIED
[2021-07-13 12:08] LABS: INTERNATIONAL NORM RATIO 1.2 (0.9-1.1); Prothrombin Time 13.9 SEC (9.9-13.0)
[2021-07-13 12:12] LABS: Partial Thromboplastin Time 34.5 SEC (24.1-38.0)
[2021-07-13] MEDS: Magnesium Sulfate/H2O 2 GM/50 ML PIGGYBACK IV ×2 (12:39→14:50)
[2021-07-13 12:43] LABS: RBC Urine 0-2 /HPF (0); Squamous Epithelial Cell Urine 2+ /LPF
--- NOTE | 2021-07-13 14:06 | PM.IMHP ---
History of Present Illness Date of Service: 07/13/21 <IVELISSE Singh - Last Filed: 07/14/21 07:13> Attending physician on admission: Jarocho Stacy <IVELISSE Singh - Last Filed: 07/14/21 07:13> Chief Complaint: diarrhea, abdominal pain <IVELISSE Singh - Last Filed: 07/14/21 07:13> this is a 80-year-old female who presents the emergency department with complaints of abdominal pain and diarrhea. She was admitted to [facility] from June 19 until June 23 with similar issues. She was initially admitted with dark tarry stools concerning for GI bleeding however her H/ H remained stable in her occult blood was negative. Abdominal imaging at that time were raised concern of possible appendicitis, she was seen by surgery who felt her symptoms were not consistent with appendicitis. She was evaluated by GI who felt that she had a component of bile induced diarrhea. After discharge she was started on cholestyramine. The consistency of her bowel movements changed but she continues to have frequent episodes of diarrhea which is mustard colored to clear and does not seem to have any blood. She has had associated crampy abdominal pain primarily located on the right lower quadrant. This does not seem to change based on her diet. She follows a bland, lactose-free diet does and does not eat fried/fatty foods. On discharge she was also instructed to stop her magnesium, iron, vitamin-C supplementation as it was thought to be contributing to her abdominal discomfort. Since Saturday she began having left arm tingling from her arm into all of her fingers as well as cramping in bilateral legs. Her PCP ordered an outpatient brain CT to rule out stroke and the report was obtained and shows no evidence of territorial infarction. No significant interval change in white matter hypodensities which are probably related to chronic small vessel ischemic disease . In the ED her blood pressure was elevated, she reports not taking her BP meds today. Her magnesium was less than 0.6. she was treated with 2 mg of IV magnesium and decision was made to admit her to the hospital for further management. <IVELISSE Singh - Last Filed: 07/14/21 07:13> Review of Systems Review of Systems: Yes all other systems are reviewed and are negative <IVELISSE Singh - Last Filed: 07/14/21 07:13> Constitutional: Constitutional: Denies chills and Denies fever(s) <IVELISSE Singh - Last Filed: 07/14/21 07:13> Cardiovascular: Cardiovascular: Denies chest pain <IVELISSE Singh - Last Filed: 07/14/21 07:13> Respiratory: Respiratory: Denies cough <IVELISSE Singh - Last Filed: 07/14/21 07:13> Gastrointestinal: Gastrointestinal: Reports abdominal pain and Reports diarrhea <IVELISSE Singh - Last Filed: 07/14/21 07:13> [facility] Medical History: Medical History Abnormal EKG Anemia Chest discomfort Dark stools DVT (deep venous thrombosis) Gastritis GERD (gastroesophageal reflux disease) HTN (hypertension) PAC (premature atrial contraction) Pulmonary embolism Renal cyst <IVELISSE Singh - Last Filed: 07/14/21 07:13> Functional capacity: independent ambulation <IVELISSE Singh - Last Filed: 07/14/21 07:13> Family History: Family History Father No problems noted. Mother No problems noted. <IVELISSE Singh - Last Filed: 07/14/21 07:13> Pertinent family history: no history of CAD <IVELISSE Singh - Last Filed: 07/14/21 07:13> Surgical History: Surgical History History of colon resection History of laparoscopic cholecystectomy <IVELISSE Singh - Last Filed: 07/14/21 07:13> Social History: Social History Household Members: Family Housing: House Do you presently have visiting nurse or other home services: No Alcohol intake: never Patient Tobacco Use Status: Never used Tobacco Use of substances other than those prescribed or required for medical reasons: No Currently Displaying Signs/Symptoms of Drug Intoxication Withdrawal: No Have you been hit, kicked, punched, or otherwise hurt by someone within the past year? If so, by whom?: No Do you feel safe in your current relationship?: No Current Relationship Is there a partner from a previous relationship who is making you feel unsafe now?: No Are you made to feel afraid or neglected: No [employer] Practices: [employer] Advance Directives: Yes Advance Directives Information Provided: Yes Advance Directives on File: Yes Advance Directives Date on File: 07/13/21 Do you have thoughts of harming others: None Do you have a plan to hurt others: No Plan Recently lost weight without trying: No How much weight loss: Not applicable Eating poorly because of decreased appetite: No Nutrition screen score: 0 Nutrition Risks: No Nutritional Risk Patient : No : No Poor oral hygiene: No service: No Current occupational status: retired <IVELISSE Singh - Last Filed: 07/14/21 07:13> Meds Allergies/Adverse reactions: Allergies Allergy/AdvReac Type Severity Reaction Status Date / Time latex Allergy Rash Verified 07/13/21 09:04 Latex Gloves Allergy Unknown rash Uncoded 06/27/21 12:05 Anjali spice Allergy Unknown Rash Uncoded 06/27/21 12:05 <IVELISSE Singh - Last Filed: 07/14/21 07:13> Active Medications: Current Medications Acetaminophen (Acetaminophen 325 Mg Tablet) 650 mg PO Q6H PRN PRN Reason: Pain, Mild (Pain Scale 1-3) Atorvastatin Calcium (Atorvastatin Calcium 80 Mg Tablet) 80 mg PO BEDTIME DIANE Cholestyramine Resin (Cholestyramine (With Sugar) 4 Gm Powd.Pack) 4 gm PO BID PRN PRN Reason: Diarrhea Diltiazem HCl (Diltiazem Hcl Cd 120 Mg Cap.Er.Deg) 120 mg PO DAILY DIANE; Protocol Gabapentin (Gabapentin 100 Mg Capsule) 100 mg PO BEDTIME DIANE Gabapentin (Gabapentin 300 Mg Capsule) 300 mg PO BID DIANE Magnesium Sulfate (Magnesium Sulfate/H2o) 2 gm in 50 mls @ 25 mls/hr IV ONCE ONE Stop: 07/13/21 14:27 Last Admin: 07/13/21 12:39 Dose: 50 mls/hr Documented by: Loratadine (Loratadine 10 Mg Tablet) 10 mg PO BEDTIME DIANE Melatonin (Melatonin 3 Mg Tablet) 3 mg PO BEDTIME PRN PRN Reason: Insomnia Non-Formulary Medication (Diclofenac Sodium) 2 gm TOPICAL BID DIANE Omeprazole (Omeprazole 40 Mg Capsule.Dr) 40 mg PO DAILY [facility] Ondansetron HCl (Ondansetron Hcl 4 Mg/2 Ml Vial) 4 mg IVPUSH Q8H PRN PRN Reason: Nausea and Vomiting Pharmacy Consult (Consult Rx Perform Med Rec) 1 each MISCELLANE ONCE PRN PRN Reason: Consult order Sodium Chloride (0.9 % Sodium Chloride Flush 3 Ml Syringe) 3 ml IVFLUSH QSHIFT DIANE Spironolactone (Spironolactone 25 Mg Tablet) 25 mg PO DAILY DIANE; Protocol Tramadol HCl (Tramadol Hcl 50 Mg Tablet) 50 mg PO BID PRN PRN Reason: Pain, Moderate (Pain Scale 4-6 <IVELISSE Singh - Last Filed: 07/14/21 07:13> Home medications: Home Medications Medication Instructions Recorded Confirmed Last Taken Type gabapentin 300 mg capsule 300 mg PO BID 09/21/20 07/13/21 06/18/21 History atorvastatin 80 mg tablet 80 mg PO BEDTIME 11/11/20 07/13/21 06/18/21 History spironolactone 25 mg tablet 25 mg PO DAILY 05/10/21 07/13/21 06/18/21 History loratadine 10 mg tablet 1 tab PO BEDTIME 06/19/21 07/13/21 06/18/21 History nitroglycerin 0.4 mg sublingual 0.4 mg SUBLINGUAL DIRECTED 06/19/21 07/13/21 Unknown History tablet omeprazole 40 mg capsule,delayed 1 cap PO DAILY 06/19/21 07/13/21 06/18/21 History release cholestyramine (with sugar) 4 gram 1 - 1.5 ea PO BID PRN 07/13/21 07/13/21 Unknown History oral powder diclofenac sodium 1 % topical gel 2 g TOPICAL BID 07/13/21 07/13/21 Unknown History gabapentin 100 mg capsule 100 mg PO BEDTIME 07/13/21 07/13/21 Unknown History tramadol 50 mg tablet 50 mg PO BID PRN 07/13/21 07/13/21 Unknown History <IVELISSE Singh - Last Filed: 07/14/21 07:13> Physical Exam Vital Signs and Narrative: Vital Signs: Last Vital Signs Temp 97.5 F 07/13/21 09:04 Pulse 60 07/13/21 13:57 Resp 15 07/13/21 13:57 BP 185/82 H 07/13/21 13:57 Pulse Ox 96 07/13/21 13:57 Body Mass Index 27.4 <IVELISSE Singh - Last Filed: 07/14/21 07:13> Const: Nutritional Appearance: well nourished <IVELISSE Singh - Last Filed: 07/14/21 07:13> Orientation/consciousness: patient oriented x3 <IVELISSE Singh - Last Filed: 07/14/21 07:13> HENMT: Head: Yes normocephalic and Yes atraumatic <IVELISSE Singh - Last Filed: 07/14/21 07:13> Eyes: Sclerae: sclerae normal <IVELISSE Singh - Last Filed: 07/14/21 07:13> Resp: Effort & Inspection: normal respiratory effort and no respiratory distress <IVELISSE Singh - Last Filed: 07/14/21 07:13> Cardio: Rate: regular rate <IVELISSE Singh - Last Filed: 07/14/21 07:13> Rhythm: regular rhythm <IVELISSE Singh - Last Filed: 07/14/21 07:13> Heart sounds: Murmur heart sound present systolic <IVELISSE Singh - Last Filed: 07/14/21 07:13> GI: Other: soft, non-distended; tender to palpation in right lower quadrant <IVELISSE Singh - Last Filed: 07/14/21 07:13> Neuro: General: patient oriented x3 <IVELISSE Singh - Last Filed: 07/14/21 07:13> Cranial nerves: Yes CN's II-XII intact bilaterally and Yes Bilaterally intact EOM present <IVELISSE Singh - Last Filed: 07/14/21 07:13> Extrem: Other: no leg edema <IVELISSE Singh - Last Filed: 07/14/21 07:13> Results Labs CBC and Chem 7: : 07/13/21 10:45 07/14/21 05:55 <IVELISSE Singh - Last Filed: 07/14/21 07:13> Labs: Laboratory Results - last 24 hr 07/13/21 07/13/21 07/13/21 10:45 10:45 10:45 MCV 94.5 MCH 31.2 MCHC 33.0 RDW 13.2 Plt Count 186 MPV Not Reportable Immature Gran % (Auto) 0.4 Neut % (Auto) 64.3 Lymph % (Auto) 26.7 Dickinson % (Auto) 7.4 Eos % (Auto) 0.8 Baso % (Auto) 0.4 Lymph # (Auto) 2.1 Dickinson # (Auto) 0.6 Eos # (Auto) 0.1 Baso # (Auto) 0.0 Abs Immat Gran (auto) 0.03 Absolute Neuts (auto) 5.1 Absolute Nucleated RBC 0.000 Nucleated RBC % (auto) 0.0 Smear Tech's Comments VERIFIED PT INR APTT Anion Gap 14 Estim Creat Clear Calc 41.1 Estimated GFR > 60 Random Glucose 85 Calcium 7.2 L D Magnesium < 0.6 L* Iron 68 TIBC 218 L % Saturation 31 Unsat Iron Binding 150 Total Bilirubin 0.5 AST 35 H D ALT 37 H Alkaline Phosphatase 94 Troponin I High Sens Total Protein 6.6 Albumin 3.8 Lipase 31 Vitamin B12 216 Folate 11.3 TSH Urine Color Urine Appearance Urine pH Ur Specific [place] Urine Protein Urine Glucose (UA) Urine Ketones Urine Blood Urine Nitrite Ur Leukocyte Esterase Urine RBC Urine WBC Ur Squamous Epith Cells Urine Bacteria 07/13/21 07/13/21 07/13/21 10:45 10:45 11:55 MCV MCH MCHC RDW Plt Count MPV Immature Gran % (Auto) Neut % (Auto) Lymph % (Auto) Dickinson % (Auto) Eos % (Auto) Baso % (Auto) Lymph # (Auto) Dickinson # (Auto) Eos # (Auto) Baso # (Auto) Abs Immat Gran (auto) Absolute Neuts (auto) Absolute Nucleated RBC Nucleated RBC % (auto) Smear Tech's Comments PT 13.9 H INR 1.2 H APTT 34.5 Anion Gap Estim Creat Clear Calc Estimated GFR Random Glucose Calcium Magnesium Iron TIBC % Saturation Unsat Iron Binding Total Bilirubin AST ALT Alkaline Phosphatase Troponin I High Sens 7.9 Total Protein Albumin Lipase Vitamin B12 Folate TSH 0.77 Urine Color Urine Appearance Urine pH Ur Specific [place] Urine Protein Urine Glucose (UA) Urine Ketones Urine Blood Urine Nitrite Ur Leukocyte Esterase Urine RBC Urine WBC Ur Squamous Epith Cells Urine Bacteria 07/13/21 11:55 MCV MCH MCHC RDW Plt Count MPV Immature Gran % (Auto) Neut % (Auto) Lymph % (Auto) Dickinson % (Auto) Eos % (Auto) Baso % (Auto) Lymph # (Auto) Dickinson # (Auto) Eos # (Auto) Baso # (Auto) Abs Immat Gran (auto) Absolute Neuts (auto) Absolute Nucleated RBC Nucleated RBC % (auto) Smear Tech's Comments PT INR APTT Anion Gap Estim Creat Clear Calc Estimated GFR Random Glucose Calcium Magnesium Iron TIBC % Saturation Unsat Iron Binding Total Bilirubin AST ALT Alkaline Phosphatase Troponin I High Sens Total Protein Albumin Lipase Vitamin B12 Folate TSH Urine Color YELLOW Urine Appearance CLEAR Urine pH 6.5 Ur Specific [place] 1.015 Urine Protein TRACE Urine Glucose (UA) NEG Urine Ketones NEG Urine Blood NEG Urine Nitrite NEG Ur Leukocyte Esterase TRACE H Urine RBC 0-2 Urine WBC 1-4 Ur Squamous Epith Cells 2+ Urine Bacteria NONE <IVELISSE Singh - Last Filed: 07/14/21 07:13> Imaging Radiologist's Impressions: Impressions Venous Duplex 07/13/21 10:32 IMPRESSION: No DVT demonstrated in the left lower extremity. <IVELISSE Singh - Last Filed: 07/14/21 07:13> Assessment and Plan (1) Hypomagnesemia: Status: Acute <IVELISSE Singh - Last Filed: 07/14/21 07:13> (2) Hypocalcemia: Status: Acute <IVELISSE Singh Last Filed: 07/14/21 07:13> (3) Paresthesias: Status: Acute <IVELISSE Singh - Last Filed: 07/14/21 07:13> This is a 80-year-old female with history of hypertension, hyperlipidemia, chronic diarrhea, history of hypo magnesemia who presents to the emergency department with crampy abdominal pain, diarrhea found to have undetectable magnesium level hypomagnesemia magnesium <0.6 Likely r/t persistent diarrhea will replace and follow BMP has not been taking po magnesium supplementation chronic diarrhea may need diagnostic colonoscopy GI consult prn cholestyramine left arm paresthesias likely result of electrolyte abnormalities outpatient brain CT negative uncontrolled HTN did not take meds today will give dose of home meds now follow BP closely HLD continue statin dvt ppx - mechanical devices code status - full code <IVELISSE Singh - Last Filed: 07/14/21 07:13> Quality Stroke Does the patient have a stroke diagnosis?: No <IVELISSE Singh - Last Filed: 07/14/21 07:13> VTE Prior VTE?: No <IVELISSE Singh - Last Filed: 07/14/21 07:13> VTE Risk Level:: Medical - moderate - high <IVELISSE Singh - Last Filed: 07/14/21 07:13> VTE Device Contraindication: N/A - Device Ordered <IVELISSE Singh - Last Filed: 07/14/21 07:13> VTE Drug Contraindication: Treatment Not Indicated <IVELISSE Singh - Last Filed: 07/14/21 07:13>
[2021-07-13] MEDS: Spironolactone 25 MG TABLET PO (14:14)
[2021-07-13] MEDS: dilTIAZem HCL CD 120 MG CAP.ER.DEG PO (14:14)
[2021-07-13] MEDS: amLODIPine Besylate 5 MG TABLET PO (18:23)
[2021-07-13] MEDS: Loratadine 10 MG TABLET PO (20:34)
[2021-07-13] MEDS: Gabapentin 300 MG CAPSULE PO (20:34)
[2021-07-13] MEDS: Atorvastatin Calcium 80 MG TABLET PO (20:34)
[2021-07-13] MEDS: Gabapentin 100 MG CAPSULE PO (20:34)
[2021-07-14 04:00] VITALS: BP 161/77; PULSE 62; RESP 18; TEMP 36.9
[2021-07-14 07:35] LABS: Alanine Aminotransferase 38 U/L (0-31); Albumin Level 3.8 g/dL (3.5-5.0); Alkaline Phosphatase 98 U/L (39-117); Anion Gap 15 (12-20); Aspartate Amino Transferase 33 U/L (5-31); Bilirubin Direct 0.3 mg/dL (0.0-0.5); Bilirubin Total 0.7 mg/dL (0.0-1.0); Blood Urea Nitrogen 7 mg/dL (9-16); Calcium 7.6 mg/dL (8.4-10.2); Carbon Dioxide 25 mmol/L (22-29); Chloride 109 mmol/L (96-108); Creatinine Clr Calc Pharmacy 43.4; Estimated Glomerular Filt Rate > 60; Glucose Random 80 mg/dL (60-115); Magnesium 1.3 mg/dL (1.6-2.6); Potassium 3.1 mmol/L (3.3-5.1); Sodium 146 mmol/L (135-145); Total Protein 6.2 g/dL (6.5-8.0)
[2021-07-14 08:00] VITALS: BP 141/65; PULSE 65; RESP 18; TEMP 36.5; O2SAT 100
--- NOTE | 2021-07-14 08:36 | MHC.CM.PN ---
CM met with Patient at bedside and addressed IMM with her, providing her with the original and placing a copy on the chart.Patient lives in a house with her Son/HCP/Feroz,her [id number] and an adult Grandson and an 11 year old Grandson.Patient states that she has a VNA that calls in to check on her but no in-home visits and she is unable to recall the name of the agency.Patient's goal is to return home and CM has initiated and will follow for dc planning. PCP is Dr. Feroz Reyes.
--- NOTE | 2021-07-14 08:51 | PM.EVENT ---
Event Note Date of Service: 07/14/21 Event Note: GI Consult-Full note dictated-Hx via patient and EMR Imp: Recurrent diarrhea. I last saw her at the end of 05/2021 right before she was discharged. She was started on Cholestyramine powder for presumed bile-induced diarrhea shortly after discharge. She used that for 2 weeks at home with what she describes as excellent results with cessation of diarrhea and having normal BM's. However, she stopped it about 1 week ago as she thought she wouldn't need it care home. Her diarrhea gradually returned and landed her back in the ER. She presently feels better after hydration and repletion of Magnesium. There has been no bleeding. Her abdominal exam is benign. She is hungry. 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 She does have an appt to see me in 09/2021. We did discuss potential colonoscopy for further evaluation if need be, but hopefully the cholestyramine will do the trick in the meantime. If stable she can be discharged over the weekend but I told her to call me sooner as an outpatient if need be. If things do not improve here and she can't be discharged I can then do a colonoscopy on Saturday instead. D/W patient in detail and she is comfortable with this plan. [facility] covering the weekend if questions arise. Thanks.
[2021-07-14 10:05] VITALS: BP 141/65; PULSE 65
[2021-07-14] MEDS: Cholestyramine (With Sugar) 4 GM POWD.PACK PO (10:05)
[2021-07-14] MEDS: Magnesium Sulfate/H2O 2 GM/50 ML PIGGYBACK IV (10:05)
[2021-07-14] MEDS: Omeprazole 40 MG CAPSULE.DR PO (10:05)
[2021-07-14] MEDS: Gabapentin 300 MG CAPSULE PO ×2 (10:05→21:19)
[2021-07-14] MEDS: dilTIAZem HCL CD 120 MG CAP.ER.DEG PO (10:05)
[2021-07-14] MEDS: Potassium Chloride Packet 20 MEQ PACKET 40 MEQ PO (10:05)
[2021-07-14] MEDS: 0.9 % Sodium Chloride Flush 3 ML SYRINGE IVFLUSH ×3 (10:06→21:19)
[2021-07-14 11:39] VITALS: BP 131/61; PULSE 63; RESP 18; TEMP 36.9; O2SAT 99
[2021-07-14] MEDS: KCl 20 mEq in 5 % Dextrose 20 MEQ/1,000 ML IV.SOLN 80 MEQ IVCONT (13:35)
[2021-07-14 15:36] LABS: Magnesium 2.3 mg/dL (1.6-2.6)
[2021-07-14 16:28] VITALS: BP 146/66; PULSE 66; RESP 18; TEMP 36.9; O2SAT 100
[2021-07-14 16:46] LABS: A. Phagocytphilium DNA,RT-PCR NOT DETECTED (NOT DETECTED); Babesia Microti DNA, RT-PCR NOT DETECTED (NOT DETECTED); Borrelia Miyamotoi,DNA RT-PCR NOT DETECTED (NOT DETECTED); E.Chaffeensis DNA RT-PCR NOT DETECTED (NOT DETECTED); Lyme(Borrelia ssp)DNA RT-PCR NOT DETECTED (NOT DETECTED); Source-Tick borne disease EDTA
--- NOTE | 2021-07-14 17:42 | HO.PM.IMPN ---
Subjective Subjective Date of Service: 07/14/21 Interval History: being followed for diarrhea and hypo magnesium complaining of persistent diarrhea 8-9 episodes of diarrhea with abdominal cramping, no fever no chills no other acute issues Review of Systems General no headache no dizziness no fever chills. CVS no chest pain, no palpitation. Respiratory no cough no sputum production no respiratory distress. Gastrointestinal no nausea no vomiting, abdominal pain skin no rash Review of Systems: Yes all other systems are reviewed and are negative Physical Exam Vital Signs: Vital Signs: Last Vital Signs Temp 98.5 F 07/14/21 16:28 Pulse 66 07/14/21 16:28 Resp 18 07/14/21 16:28 BP 146/66 H 07/14/21 16:28 Pulse Ox 100 07/14/21 16:28 Body Mass Index 27.6 General awake alert, no acute distress. Neck is supple no JVD. CVS regular rate rhythm, Respiratory lungs clear to auscultation, no respiratory distress, no wheeze, no rhonchi. Gastrointestinal abdomen soft, lower abdominal tenderness with deep palpation, no guarding , no rigidity. Extremities no edema. Neuro nonfocal Skin no rash psych appropriate affect Objective Data Active Medications Acetaminophen (Acetaminophen 325 Mg Tablet) 650 mg PO Q6H PRN PRN Reason: Pain, Mild (Pain Scale 1-3) Amlodipine Besylate (Amlodipine Besylate 5 Mg Tablet) 5 mg PO DAILY [facility]; Protocol Atorvastatin Calcium (Atorvastatin Calcium 80 Mg Tablet) 80 mg PO BEDTIME [facility] Last Admin: 07/13/21 20:34 Dose: 80 mg Documented by: NATHANIEL Cholestyramine Resin (Cholestyramine (With Sugar) 4 Gm Powd.Pack) 4 gm PO DAILY@0730 [facility] Last Admin: 07/14/21 10:05 Dose: 4 gm Documented by: JANINE Gabapentin (Gabapentin 100 Mg Capsule) 100 mg PO BEDTIME [facility] Last Admin: 07/13/21 20:34 Dose: 100 mg Documented by: NATHANIEL Gabapentin (Gabapentin 300 Mg Capsule) 300 mg PO BID [facility] Last Admin: 07/14/21 10:05 Dose: 300 mg Documented by: JANINE Potassium Chloride/Dextrose () 20 meq in 1,000 mls @ 80 mls/hr IVCONT .[id number] [facility] Stop: 07/14/21 20:59 Last Admin: 07/14/21 13:35 Dose: 80 mls/hr Documented by: JANINE Loratadine (Loratadine 10 Mg Tablet) 10 mg PO BEDTIME [facility] Last Admin: 07/13/21 20:34 Dose: 10 mg Documented by: NATHANIEL Melatonin (Melatonin 3 Mg Tablet) 3 mg PO BEDTIME PRN PRN Reason: Insomnia Omeprazole (Omeprazole 40 Mg Capsule.Dr) 40 mg PO DAILY [facility] Last Admin: 07/14/21 10:05 Dose: 40 mg Documented by: JANINE Ondansetron HCl (Ondansetron Hcl 4 Mg/2 Ml Vial) 4 mg IVPUSH Q8H PRN PRN Reason: Nausea and Vomiting Pharmacy Consult (Consult Rx Perform Med Rec) 1 each MISCELLANE ONCE PRN PRN Reason: Consult order Sodium Chloride (0.9 % Sodium Chloride Flush 3 Ml Syringe) 3 ml IVFLUSH QSHIFT [facility] Last Admin: 07/14/21 15:35 Dose: Not Given Documented by: JANINE Non-Admin Reason: IV Running Tramadol HCl (Tramadol Hcl 50 Mg Tablet) 50 mg PO BID PRN PRN Reason: Pain, Moderate (Pain Scale 4-6 Labs CBC & Chem 7: 07/13/21 10:45 07/14/21 05:55 Labs: Laboratory Results - last 24 hr 07/13/21 07/14/21 07/14/21 10:45 05:55 15:16 Anion Gap 15 Estim Creat Clear Calc 43.4 Estimated GFR > 60 Random Glucose 80 Calcium 7.6 L Magnesium 1.3 L* 2.3 Total Bilirubin 0.7 Direct Bilirubin 0.3 AST 33 H ALT 38 H Alkaline Phosphatase 98 Total Protein 6.2 L Albumin 3.8 A.phagocytophil DNA PCR NOT DETECTED Babesia microti DNA PCR NOT DETECTED Borrelia sp DNA (PCR) NOT DETECTED Borrelia miyamotoi (PCR) NOT DETECTED E.chaffeensis DNA (PCR) NOT DETECTED Tick-borne Disease PCR EDTA Microbiology Microbiology Results: Microbiology 07/13/21 13:00 Urine Culture - Final Urine clean catch - Urine barnard top Assessment and Plan (1) Paresthesias: Status: Acute (2) Hypomagnesemia: Status: Acute (3) Hypocalcemia: Status: Acute (4) Weakness: Status: Acute (5) Diarrhea: Status: Acute Assessment and Plan: 80-year-old female with history of hypertension, hyperlipidemia, chronic diarrhea, history of hypo magnesemia who presents to the emergency department with crampy abdominal pain, diarrhea found to have undetectable magnesium level hypomagnesemia magnesium <0.6 on admission now improved to 1.6, Likely r/t persistent diarrhea, will give 2 g of magnesium and repeat level chronic diarrhea persistent loose stool, will check stool C diff since patient feel color and the smell has changed patient seen by Dr. Blunt he recommend to resume cholestyramine and if diarrhea improves then patient will be discharged home otherwise patient will stay over the weekend for possible colonoscopy on Saturday will place patient on bland lactose free diet left arm paresthesias likely result of electrolyte abnormalities, no recurrent neurological symptoms since admission outpatient brain CT negative uncontrolled HTN BP improved, will place patient on Norvasc 5 mg daily and DC Aldactone to avoid electrolyte abnormalities follow BP closelyd HLD continue statin dvt ppx - mechanical devices code status - full code Quality Stroke Does the patient have a stroke diagnosis?: No VTE Prior VTE?: No VTE Risk Level:: Medical - moderate - high VTE Device Contraindication: N/A - Device Ordered VTE Drug Contraindication: Treatment Not Indicated
[2021-07-14 20:00] VITALS: BP 143/78; PULSE 57; RESP 18; TEMP 36.9; O2SAT 98
[2021-07-14] MEDS: Atorvastatin Calcium 80 MG TABLET PO (21:19)
[2021-07-14] MEDS: Gabapentin 100 MG CAPSULE PO (21:19)
[2021-07-14] MEDS: Loratadine 10 MG TABLET PO (21:19)
[2021-07-15] VITALS: BP 148/75; RESP 18; TEMP 37.1; O2SAT 99
[2021-07-15 03:34] VITALS: BP 161/77; RESP 18; TEMP 36.8; O2SAT 99
[2021-07-15 07:17] VITALS: BP 118/58; PULSE 55; RESP 18; TEMP 36.4; O2SAT 99
[2021-07-15 08:16] LABS: Anion Gap 10 (12-20); Blood Urea Nitrogen 7 mg/dL (9-16); Calcium 7.7 mg/dL (8.4-10.2); Carbon Dioxide 21 mmol/L (22-29); Chloride 112 mmol/L (96-108); Creatinine Clr Calc Pharmacy 44.5; Estimated Glomerular Filt Rate > 60; Glucose Random 97 mg/dL (60-115); Sodium 139 mmol/L (135-145)
[2021-07-15 09:05] VITALS: BP 118/58
[2021-07-15] MEDS: Omeprazole 40 MG CAPSULE.DR PO (09:05)
[2021-07-15] MEDS: amLODIPine Besylate 5 MG TABLET PO (09:05)
[2021-07-15] MEDS: Cholestyramine (With Sugar) 4 GM POWD.PACK PO (09:05)
[2021-07-15] MEDS: Gabapentin 300 MG CAPSULE PO (09:06)
--- NOTE | 2021-07-15 10:27 | MHC.CM.PN ---
PT CLEARED TO DC HOME TODAY WITH NO SERVICES FAMILY TO TRANSPORT
[2021-07-15] MEDS: 0.9 % Sodium Chloride Flush 3 ML SYRINGE IVFLUSH (11:06)
[2021-07-15 11:07] VITALS: BP 124/54; PULSE 67; RESP 17; TEMP 36.4; O2SAT 100
--- NOTE | 2021-07-15 12:23 | P.DS_ITS ---
DS: Providers Provider Date of Service: 07/15/21 Date of admission: 07/13/21 13:50 Primary care physician: Feroz Reyes MD Consults: 07/13/21 13:40 Consult to Gastroenterology Routine Consulting Provider: Artemio Blunt Reason for consultation: diarrhea,low mag, crampy abdominal pain Has provider been notified: No DS: Diagnosis Discharge Diagnosis (1) Paresthesias: Status: Acute (2) Hypomagnesemia: Status: Acute (3) Hypocalcemia: Status: Acute (4) Weakness: Status: Acute (5) Diarrhea: Status: Acute DS: Summary Hospital Course Hospital Course: Chief Complaint: ? ? ? diarrhea, abdominal pain? 80-year-old female who presents the emergency department? with complaints of abdominal pain and diarrhea.? She was admitted to [facility] from June 19 until June 23 with similar issues.? She was initially admitted with dark tarry stools concerning for GI bleeding however her H/ H remained stable in her occult blood was negative. ? Abdominal imaging at that time were raised concern of possible appendicitis, she was seen by surgery who felt her symptoms were not consistent with appendicitis.? She was evaluated by GI who felt that she had a component of bile induced diarrhea.? After discharge she was started on cholestyramine.? The consistency of her bowel movements changed but she continues to have frequent episodes of diarrhea which is mustard colored to clear and does not seem to have any blood. ? She has had associated crampy abdominal pain primarily located on the right lower quadrant.? This does not seem to change based on her diet.? She follows a bland, lactose-free diet does and does not eat fried/fatty foods. ? On discharge she was also instructed to stop her magnesium, iron, vitamin-C supplementation? as it was thought to be contributing to her abdominal discomfort.? Since Saturday she began having left arm tingling from her arm into all of her fingers as well as cramping in bilateral legs.? Her PCP ordered an outpatient brain CT to rule out stroke and the report was obtained and shows no evidence of territorial infarction.? No significant interval change in white matter hypodensities which are probably related to chronic small vessel ischemic disease . In the ED her blood pressure was elevated, she reports not taking her BP meds today. ? Her magnesium was less than 0.6.? she was treated with 2 mg of IV magnesium and decision was made to admit her to the hospital for further management. Hospital course 80-year-old female with history of hypertension, hyperlipidemia, chronic diarrhea, history of hypomagnesemia presented to emergency department with crampy abdominal pain, diarrhea found to have undetectable magnesium level and admitted with a diagnosis of hypomagnesemia and paresthesias related to electrolyte abnormality, patient was treated with IV magnesium supplement, hyperesthesias and electrolyte abnormalities resolved, In regard to chronic diarrhea patient seen by Dr. Blunt he recommended to resume cholestyramine since patient was doing well,with less diarrhea while on it ,but she stopped it, thinking she is not supposed to continue it for [employer], patient's symptoms improved with addition of cholestyramine she has had no diarrhea in last 24 hours tolerating bland diet and therefore being discharged home to have close outpatient follow-up with Dr. Blunt with any recurrent diarrhea. She was noted to have uncontrolled HTN, at home she was on Aldactone that has been discontinued since cause electrolyte abnormalities, patient has been placed on Norvasc 5 mg by mouth daily previously she was on Cardizem CD that she stopped using it several months ago, in regard to hyperlipidemia she has been continued on statin Time Spent with Patient Time attestation: Total time spent providing and/or coordinating discharge services: Discharge coordination time: Greater than 30 minutes Quality: Stroke Does the patient have a stroke diagnosis?: No Physical Exam Vital Signs: Vital Signs: Last Vital Signs Temp 97.6 F 07/15/21 11:07 Pulse 67 07/15/21 11:07 Resp 17 07/15/21 11:07 BP 124/54 L 07/15/21 11:07 Pulse Ox 100 07/15/21 11:07 Body Mass Index 27.6 General? awake alert, no acute distress.? Neck is supple no JVD. CVS? regular rate rhythm, Respiratory lungs clear to auscultation, no respiratory distress, no wheeze, no rhonchi. Gastrointestinal abdomen soft,nontender, no guarding , no rigidity. Extremities no edema. Neuro nonfocal Skin no rash psych appropriate affect DS: Data Data Completed and Pending Labs on day of discharge: Laboratory Results - last 24 hr 07/13/21 07/14/21 07/15/21 10:45 15:16 06:56 Sodium 139 Potassium 4.0 D Chloride 112 H Carbon Dioxide 21 L Anion Gap 10 L BUN 7 L Creatinine 0.75 Estim Creat Clear Calc 44.5 Estimated GFR > 60 Random Glucose 97 Calcium 7.7 L Magnesium 2.3 2.0 A.phagocytophil DNA PCR NOT DETECTED Babesia microti DNA PCR NOT DETECTED Borrelia sp DNA (PCR) NOT DETECTED Borrelia miyamotoi (PCR) NOT DETECTED E.chaffeensis DNA (PCR) NOT DETECTED Tick-borne Disease PCR EDTA Discharge Plan Discharge Patient Disposition: Home, Self-Care Discharge Diagnosis: Hypomagnesemia Left arm paresthesias Chronic diarrhea Uncontrolled hypertension Referrals: Feroz Reyes MD [Primary Care Provider] - 1 Week Discharge Medications: New amlodipine 5 mg Tablet 5 mg PO DAILY Qty: 30 RF: 0 cholestyramine (with sugar) 4 gram Powder In Packet 4 g PO DAILY@0730 Qty: 30 RF: 0 Continued gabapentin 300 mg capsule 300 mg PO BID RF: 0 nitroglycerin 0.4 mg tablet, sublingual 0.4 mg sublingual DIRECTED RF: 0 loratadine 10 mg tablet 1 tab PO BEDTIME RF: 0 omeprazole 40 mg capsule,delayed release(DR/EC) 1 cap PO DAILY RF: 0 tramadol 50 mg Tablet 50 mg PO BID PRN (Reason: Pain) RF: 0 gabapentin 100 mg Capsule 100 mg PO BEDTIME RF: 0 diclofenac sodium 1 % Gel 2 g TOPICAL BID RF: 0 atorvastatin 80 mg tablet 80 mg PO BEDTIME RF: 0 Discontinued diltiazem HCl 120 mg capsule,extended release 24hr 120 mg PO DAILY Qty: 90 RF: 1 cholestyramine (with sugar) 4 gram powder 1 - 1.5 ea PO BID PRN (Reason: Constipation) RF: 0 spironolactone 25 mg tablet 25 mg PO DAILY RF: 0 Discharge Orders: Discharge Order (Routine); Ordered 07/15/21 Ordered By: Jarocho Stacy Diet: low fat, low cholesterol Activity on Discharge: As tolerated Stand Alone Forms: Patient Portal Discharge page Care Plan Goals: Chronic diarrhea follow bland diet and take cholestyramine daily outpatient follow-up with Dr. Blunt with any recurrent symptoms of diarrhea or abdominal pain In regard to hypertension take Norvasc 5 mg by mouth daily Health Concerns: Follow-up with primary care physician and Gastroenterology as above take all other medications as prescribed Plan of Treatment: Outpatient follow-up with primary care physician in next 1-2 weakness Assessment: As above
--- NOTE | 2021-07-17 14:25 | CONS_ITS ---
DATE OF SERVICE: 07/14/2021 REASON FOR CONSULTATION: Diarrhea. HISTORY OF PRESENT ILLNESS: The patient is a 80-year-old female well known to me with a previous history of a low anterior sigmoid resection and temporary colostomy in 2017 for diverticulitis. She is status post a cholecystectomy as well [place] [address] Deutsch. She has been troubled by diarrhea and had been admitted here in May for that. She was sent home and started on cholestyramine for presumed bile-induced diarrhea in relation to the cholecystectomy and previous colon surgery. For the 2 weeks that she was on at home, she does report that it actually worked very well and resolved her diarrhea and kept her stools formed. However, about a week ago she decided to stop it as she did not think she would need to be on it permanently. However, as time progressed over the past week or so, her diarrhea worsened and prompted her visit to the ER with admission for dehydration and low magnesium. She did not notice any signs of bleeding. She denies any abdominal pain, nausea, nor vomiting. She had not been on any recent antibiotics. She denies any ill contacts nor travel. Her last colonoscopy was in [address] Covington, which was negative other than for diverticulosis. She denies any known family history of inflammatory bowel disease nor colorectal cancer. SOCIAL HISTORY: She lives with her family. She does not smoke nor use any significant amounts of alcohol. REVIEW OF SYSTEMS: CONSTITUTIONAL: For the couple of weeks that she was on the cholestyramine and her bowel movements have been normal, she was feeling well with good energy and good appetite. SKIN: No rash. No pruritus. CARDIAC: No chest pain. PULMONARY: No coughing nor hemoptysis. GI: As above. PHYSICAL EXAMINATION: GENERAL: The patient is a pleasant, alert, comfortable-appearing female. SKIN: Warm and dry. EYES: Anicteric sclerae. NECK: Supple. CHEST: Clear. CARDIAC: Normal S1, S2. ABDOMEN: Soft, nondistended. Normal bowel sounds. Nontender without mass. EXTREMITIES: Without edema. LABORATORY DATA: White blood cell count 8.0, hemoglobin 11.3, platelets 186,000. PT 13.9 with INR of 1.2. Sodium 146, potassium 3.1, BUN 7, creatinine 0.8. Her magnesium has improved from a level of less than 0.6 to 1.3 this morning and 2.3 this afternoon. Normal LFTs except for AST 33 and ALT 38. Albumin 3.8. IMPRESSION: Given the patient's clinical history this seems most consistent with a bile-induced diarrhea given her previous surgical history and her good response to the cholestyramine for the couple of weeks that she was on it at home. Therefore, at this point, I would hold off on any other diagnostic interventions such as colonoscopy and simply start her back on cholestyramine to see if that can get her feeling better again. If that works while she is here in the hospital and she is feeling well, she will go home and then she does have a followup appointment to see me in September. On the other hand, if the diarrhea remains refractory to treatment, then we could do a bowel prep while she is here in the hospital and plan with colonoscopy as an inpatient to rule out any underlying inflammatory bowel disease or microscopic colitis. I would also keep her on a bland and lactose-free diet. This has been discussed with the patient in detail, and she is comfortable with the plan. Thank you for this consultation. MD RYAN Hernandez/GRACE / [id number]
== END 2021-07-15 16:15 | disposition home or self-care (01) | DRG 392 ==
LOC: HO.ED 10:12 → HO.EDOVER 13:51 → HO.IMC 15:12
PROVIDERS: Admitting Provider Physician Assistant Medical; Emergency Provider Emergency Medicine Emergency Medical Services; PCP Internal Medicine; Visit Provider Hospitalist
DX: K52.9 Noninfective gastroenteritis and colitis, unspecified (principal); E83.42 Hypomagnesemia; E78.5 Hyperlipidemia, unspecified; E87.6 Hypokalemia; E83.51 Hypocalcemia; Z91.040 Latex allergy status; Z79.899 Other long term (current) drug therapy
CPT/HCPCS: 36415; 80048; 80053; 80076; 81001; 81003; 82607; 82746; 83540; 83690; 83735; 84443; 84484; 85025; 85610; 85730; 87086; 87798; 87801; 93005; 93971; 96365; 96366; 99285; J3475

== ENCOUNTER 2022-04-20 10:51 | Emergency (ER) | payer OTHER, MEDICAID, SELFPAY ==
--- NOTE | ~2022-04-20 | XR_ITS ---
EXAMINATION: XR CHEST CLINICAL INFORMATION: Leg pain. Right abdominal and back pain. COMPARISON: 09/21/2020 TECHNIQUE: 2 views of the chest were obtained. FINDINGS: The lungs are well expanded. There is no focal consolidation, edema, or effusion. No pneumothorax. The cardiomediastinal silhouette is within normal limits. No acute osseous abnormality. XR/XR chest 2V IMPRESSION: Clear lungs. No displaced fractures are seen.
--- NOTE | ~2022-04-20 | US_ITS ---
EXAMINATION: US VENOUS ULTRASOUND WITH DOPPLER LOWER EXTREMITY, BILATERAL CLINICAL INFORMATION: Pain in the bilateral lower extremities. COMPARISON: None TECHNIQUE: Ultrasound of the deep veins is performed from the hip to the calf with compression sonography and color and pulse Doppler assessment. Spectral analysis with color-flow imaging is performed. FINDINGS: RIGHT: There is normal venous compression and respiratory variation and augmented flow. The visualized common femoral vein, superficial femoral vein, profunda femoral vein, popliteal vein, and the trifurcation region shows no evidence of deep venous thrombosis. There is no significant popliteal fossa cyst. LEFT: There is normal venous compression and respiratory variation and augmented flow. The visualized common femoral vein, superficial femoral vein, profunda femoral vein, popliteal vein, and the trifurcation region shows no evidence of deep venous thrombosis. There is no significant popliteal fossa cyst. If the patient's symptoms persist, followup ultrasound in 5 days 7 days might be of value to exclude proximal propagation from a non-visualized calf vein. US/US venous duplex LE BI IMPRESSION: No DVT demonstrated in the bilateral lower extremities.
--- NOTE | ~2022-04-20 | CT_ITS ---
EXAMINATION: CT ABDOMEN AND PELVIS WITHOUT CONTRAST CLINICAL INFORMATION: Flank, back, abdominal pain for 2 weeks, right-sided COMPARISON: 06/21/2021 TECHNIQUE: Multidetector volumetric imaging was performed from the superior aspect of the liver through the pubic symphysis. Sagittal and coronal reformatted images were obtained on the technologist's workstation. This CT examination was performed using dose optimization techniques as appropriate, variously including the following: *Automated exposure control *Adjustment of mA and/or kV according to patient size (this includes techniques or standardized protocols for targeted exams where dose is matched to indication/reason for exam; i.e. extremities or head) *Use of iterative reconstruction technique DLP: 472 mGy-cm FINDINGS: LUNG BASES: Bibasilar linear atelectasis. LIVER, GALLBLADDER, AND BILIARY TREE: The liver is normal in size, shape, and attenuation. No focal hepatic lesion or biliary ductal dilatation is present. Cholecystectomy. PANCREAS: Unremarkable. SPLEEN: Unremarkable. ADRENAL GLANDS: Unremarkable. KIDNEYS AND URETERS: The kidneys are normal in size, shape, and attenuation. No hydronephrosis, hydroureter, or calculi seen. No perinephric stranding. Bilateral simple renal cysts. No dedicated follow-up imaging recommended. Duplicated left collecting system. BLADDER: Unremarkable. GASTROINTESTINAL TRACT: Decompressed stomach. Normal caliber small bowel. No obstruction. Small bowel anastomosis seen in the anterior pelvis. No colonic wall thickening or acute inflammation. Scattered diverticulosis without diverticulitis. The appendix is not seen. No free air or free fluid. ABDOMINAL WALL: No significant hernia is appreciated. LYMPH NODES: Normal. VASCULAR: Normal caliber aorta with mild to moderate atherosclerotic calcification. PELVIC VISCERA: Uterus not seen. No adnexal mass. OSSEOUS STRUCTURES: No acute or suspicious osseous abnormality. Mild degenerative change of the spine. Grade 1 anterolisthesis of L5 on S1. CT/CT abdomen pelvis wo con IMPRESSION: No acute findings in the abdomen or pelvis. No hydronephrosis or nephrolithiasis. Simple bilateral renal cysts for which no dedicated follow-up is recommended. 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 Colonic diverticulosis without diverticulitis. Appendix not seen. No findings to suggest acute appendicitis. Fleischner guidelines were followed.
--- NOTE | ~2022-04-20 | CT_ITS ---
EXAMINATION: CT HEAD WITHOUT CONTRAST CLINICAL INFORMATION: History of tinnitus and leg pains. COMPARISON: 10/21/2020 TECHNIQUE: Contiguous axial imaging was performed from the skull base to vertex without intravenous administration of contrast. This CT examination was performed using dose optimization techniques as appropriate, variously including the following: *Automated exposure control *Adjustment of mA and/or kV according to patient size (this includes techniques or standardized protocols for targeted exams where dose is matched to indication/reason for exam; i.e. extremities or head) *Use of iterative reconstruction technique DLP: 586 mGy-cm FINDINGS: No acute findings. No intracranial hemorrhage, extraaxial fluid collection, focal mass effect or midline shift. There is atherosclerotic calcification of proximal intradural segments of vertebral arteries and cavernous carotid arteries. Mild patchy hypoattenuation within the supratentorial white matter is nonspecific but likely sequela of chronic, mild microangiopathy. The barnard-white matter differentiation is maintained. No evidence of an acute major vascular territory infarction. Mild parenchymal volume loss with commensurate prominence of ventricles and sulci; no hydrocephalus. The brainstem and cerebellum are unremarkable. The cerebellar tonsils are in normal position. The visualized paranasal sinuses, mastoid air cells and middle ear cavities are well aerated. Normal middle and inner ear anatomy is observed. No evidence of a skull base lesion. Prior ocular lens extractions. Temporomandibular joints are unremarkable. There is calcium deposition (likely calcium pyrophosphate dihydrate crystal deposition) along the transverse ligament posterior to the dens. CT/CT head/brain wo con IMPRESSION: No intracranial mass, hemorrhage or other acute intracranial pathology.
[2022-04-20 12:30] VITALS: BP 146/66; PULSE 53; RESP 16; TEMP 35.9; O2SAT 98; BMI 28.1
--- NOTE | 2022-04-20 12:36 | ECG_ITS ---
Test Reason : ABDOMINAL PAIN Blood Pressure : / mmHG Vent. Rate : 056 BPM Atrial Rate : 056 BPM P-R Int : 164 ms QRS Dur : 082 ms QT Int : 446 ms P-R-T Axes : 054 039 089 degrees QTc Int : 430 ms Sinus bradycardia with sinus arrhythmia Nonspecific T wave abnormality Abnormal ECG When compared with ECG of 13-JUL-2021 11:04, No significant change was found Referred By: Generic ED Physician Electronically Signed By:RAYRAY ZUNIGA
--- NOTE | 2022-04-20 13:24 | ED.ABDPAIN ---
HPI - Abdominal Pain General Chief Complaint: Abdominal Pain Stated Complaint: pains on R side/leg pain/back pain Time Seen by Provider: 04/20/22 13:02 Source: patient Mode of arrival: ambulatory Limitations: no limitations History of Present Illness HPI narrative: 81-year-old female with a past medical history of hypertension, PVCs, history of PE and DVT, abnormal EKG iron deficiency anemia and GERD presenting to the ED with multiple complaints which include ringing to her ears for the past 2-3 months, 2nd complaint is lower back/right back pain radiating to her right flank/right abdomen over the past 2 weeks. Third complaint is pain to her bilateral lower extremities she reports ?I feel like my legs are cramping up?. She is concerned she could possibly have a DVT to her lower extremities. She denies any dizziness, headaches, change in vision, ear drainage, recent falls or trauma or head straight, neck pain/stiffness, trouble swallowing or breathing, sore throat, nasal congestion/rhinorrhea, cough, chest pain or shortness of breath, dyspnea on exertion, orthopnea, palpitations, paresthesias, dysuria, hematuria, abnormal vaginal discharge, black or bloody stools, recent travel or sick contacts, any estrogen use, history of cancer, any recent immobilization or surgery, rashes or any other symptoms complaints or concerns at this time. MD elicited complaint: abdominal pain and flank pain Pertinent past history: other (See above) Onset (ago): week(s) (2) Pain Consistency: constant Location: groin (Right lower back) Severity: mild Quality: cramping, aching and dull Radiation: RUQ, RLQ and R flank Exacerbating factors: nothing Relieving factors: nothing Associated symptoms: other (See above) Related Data Home Medications Medication Instructions Recorded Confirmed gabapentin 300 mg capsule 300 mg PO BID 09/21/20 07/13/21 atorvastatin 80 mg tablet 80 mg PO BEDTIME 11/11/20 07/13/21 loratadine 10 mg tablet 1 tab PO BEDTIME 06/19/21 07/13/21 nitroglycerin 0.4 mg sublingual 0.4 mg sublingual DIRECTED 06/19/21 07/13/21 tablet omeprazole 40 mg capsule,delayed 1 cap PO DAILY 06/19/21 07/13/21 release diclofenac sodium 1 % topical gel 2 g topical BID 07/13/21 07/13/21 gabapentin 100 mg capsule 100 mg PO BEDTIME 07/13/21 07/13/21 tramadol 50 mg tablet 50 mg PO BID PRN Pain 07/13/21 07/13/21 Previous Rx's Medication Instructions Recorded amlodipine 5 mg tablet 5 mg PO DAILY #30 tabs 07/15/21 cholestyramine (with sugar) 4 gram 4 g PO DAILY@0730 #30 ea 07/15/21 powder for susp in a packet magnesium oxide 400 mg PO DAILY #30 tabs 07/15/21 cyclobenzaprine 5 mg tablet 5 mg PO TID Muscular skeletal pain 04/20/22 #10 tabs naproxen 500 mg tablet 500 mg PO BID PRN pain #10 tabs 04/20/22 Allergies Allergy/AdvReac Type Severity Reaction Status Date / Time latex Allergy Rash Verified 07/13/21 09:04 Latex Gloves Allergy Unknown rash Uncoded 06/27/21 12:05 Anjali spice Allergy Unknown Rash Uncoded 06/27/21 12:05 Review of Systems Review of Systems Constitutional : No Weight loss, No Fever, No Chills, No Night Sweats, No Fatigue, No Malaise ENT/Mouth : + ringing to bilateral ears, No Hearing loss, No Ear Pain, No Nasal Congestion, No Sinus Pain, No Hoarseness, No sore throat, No Rhinorrhea, No Swallowing Difficulty Eyes: No Eye Pain, No Swelling, No Redness, No Foreign Body, No Discharge, No Vision Changes Cardiovascular : No Chest Pain, No SOB, No Dyspnea on Exertion, No Orthopnea, No Edema, No Palpitations Respiratory : No Cough, No Sputum, No Wheezing, No Smoke Exposure, No Dyspnea Gastrointestinal : + abdominal pain/flank pain, No Nausea, No Vomiting, No Diarrhea, No Constipation, No Hematochezia, No Melena Genitourinary : no irregular bleeding, No Dysuria, No Urinary Frequency, No Hematuria, No Urinary Incontinence, No Urgency, No Urinary Flow Changes, No Hesitancy Musculoskeletal : + bilateral lower extremity pain/cramping, No Myalgias, No Joint Swelling Skin : No Skin Lesions, No rash Neuro : No Weakness, No Numbness, No Paresthesias, No Loss of Consciousness, No Dizziness, No Headache Psych : No Anxiety/Panic, No Depression, No SI/HI/AH/VH, No Social Issues, Heme/Lymph: No Bruising, No Bleeding,No Lymphadenopathy Endocrine : No Polyuria, No Polydipsia, No Temperature Intolerance Yes all other systems are reviewed and are negative [facility] Past Medical History Attestation statement: The following information was validated with the patient. Source: old records reviewed, obtained from family and nursing notes reviewed Medical History Abnormal EKG Anemia Chest discomfort Dark stools DVT (deep venous thrombosis) Gastritis GERD (gastroesophageal reflux disease) HTN (hypertension) PAC (premature atrial contraction) Pulmonary embolism Renal cyst Surgical History History of colon resection History of laparoscopic cholecystectomy Family History Family History Father No problems noted. Mother No problems noted. Social History Social History Household Members: Family Housing: House Do you presently have visiting nurse or other home services: No Alcohol intake: never Patient Tobacco Use Status: Never used Tobacco Advance Directives: Yes Advance Directives on File: Yes Advance Directives Date on File: 07/13/21 service: No Current occupational status: retired Physical Exam ED Vital Signs: Vital Signs - 24 hr 04/20/22 12:30 Temperature 96.6 F L Pulse Rate 53 Respiratory Rate 16 Blood Pressure 146/66 H Pulse Oximetry 98 Oxygen Delivery Method Room Air BMI result Body Mass Index 28.1 vital signs have been reviewed as normal and appeared to be correct. Blood pressure 146/66. Heart rate normal. Respiration rate normal. Temperature 96.6. Oxygen saturation normal. Appearance: Alert. Oriented X3. No acute distress. Head: Normal external exam. Normocephalic. Atraumatic. Eyes: PERRLA. EOMI. Conjunctiva and sclera normal. Eyelids normal. ENT: EAC normal. TM's Normal. No septal hematoma noted. No hemotympanum noted. No tenderness over the mastoids. Not consistent with mastoiditis. Pharynx normal. Uvula midline. Moist mucous membranes. No lesions/ulcerations or masses noted on the tongue. Normal voice. No trismus noted. No drooling noted. No muffled voice noted. Neck: Normal inspection. Neck supple. FROM. No adenopathy. Thyroid Normal. No tracheal deviation noted. No crepitus is noted. No meningeal signs. No neck mass noted. No signs of trauma noted. CVS: Normal heart rate and rhythm. Heart sound normal. Pulses normal throughout. No murmurs/rales/gallops. Respiratory: No respiratory distress. Painless inspiration. Breath sounds normal. No wheezes/rales/rhonchi noted. Chest nontender. No crepitus is noted. No signs of trauma noted. No accessory muscle usage noted or decreased air movement noted. No signs of trauma. Abdomen: Soft and mild tenderness palpation to the right abdomen/right flank. Bowel sounds normal in all 4 quadrants. No distention noted. No organomegaly noted. No visible injury noted. Negative Rovsing test. Negative obturator's test. Negative Yoder's test. Negative psoas test. Back: + right-sided CVA tenderness. No left CVA tenderness noted. Full range of motion noted. Nontender. No signs of trauma. Patient neuro intact bilaterally and distally on all 4 extremities. Patient's reflexes intact bilaterally and distally on all 4 extremities. No rashes/lesion/induration/fluctuance or signs of infection noted. Skin: Skin warm and dry. Normal skin color. Normal skin turgor. No rashes/lesions/lacerations noted. Extremities: No lower extremity edema. No calf tenderness is noted. Extremities exhibit normal range of motion and nontender. Neuro: Oriented X 3. No motor deficit. No sensory deficit. Reflexes normal. Moving all extremities. No focal motor deficits. Cranial nerves II-XI intact bilaterally. Facial strength normal. Normal cognition. Speech normal. Gait normal. Strength 5/5 throughout. No pronator drift. No tremor noted. No fasciculations noted. No rigidity noted. Muscle tone normal throughout. No asterixis noted. [id number] test normal. Heel to bruner test normal. Tandem gait normal. Does not sway with eyes open. Romberg test negative. Rapid alternating movement upper extremity normal. Rapid alternating movement lower extremity normal. Hand drop from overhead Misses face. Vascular: + radial pulses/+ 2 distal pedal pulses/+2 dorsalis pedis b/l. Normal cap refill. No cyanosis noted to upper extremity nails and lower extremity toes nails. Course Course Course Narrative: 13:20pm - 81-year-old female with a past medical history of hypertension, PVCs, history of PE and DVT, abnormal EKG iron deficiency anemia and GERD presenting to the ED with multiple complaints which include ringing to her ears for the past 2-3 months, 2nd complaint is lower back/right back pain radiating to her right flank/right abdomen over the past 2 weeks. Third complaint is pain to her bilateral lower extremities she reports ?I feel like my legs are cramping up?. She is concerned she could possibly have a DVT to her lower extremities. Plan: Will obtain labs, CT scan of brain, EKG, CT scan abdomen pelvis, bilateral venous duplex ultrasound of lower extremity and re-evaluate. Reevaluation(s) Reevaluation #1: - CT scan of brain negative for any acute processes. - venous duplex ultrasound of bilateral lower extremity negative for DVT or any other acute processes. - CT scan abdomen pelvis revealed chronic changes no acute processes noted - awaiting labs UA. Will re-evaluate. Time: 15:28 Reevaluation #2: - labs returned troponin 14.0 although it appears that the patient has a chronic elevated troponin and she continues to deny any chest pain I did offer to repeat a troponin although patient reports she does not have chest pain or any cardiac related complaints otherwise all other labs within normal limits. - UA within normal limits no evidence of UTI. - patient most likely muscular skeletal pain. Will DC home with symptomatic treatment instructions return if any new or worsening symptoms follow up with primary care provider. Patient understands agrees with this plan. Time: 16:12 [facility] - Abdominal Pain Medical Records Attestation: I reviewed the patient's medical records. Lab Data Attestation: I reviewed the patient's lab results. Result diagrams: 04/20/22 15:36 04/20/22 15:36 Labs: Lab Results 04/20/22 04/20/22 04/20/22 Range/Units 15:36 15:36 15:36 WBC 8.1 (4.8-10.8) X10*3/uL RBC 4.46 D (4.20-5.50) X10*6/uL Hgb 13.4 (12.0-16.0) g/dl Hct 41.6 D (37.0-47.0) % MCV 93.3 (80.0-98.0) fL MCH 30.0 (27.0-33.0) pg MCHC 32.2 (31.0-35.0) g/dl RDW 12.5 (11.0-16.0) % Plt Count 220 (160-400) X10*3/uL MPV 9.6 (9.4-12.3) fL Immature Gran % (Auto) 0.2 (0.0-0.4) % Neut % (Auto) 60.2 (45-73) % Lymph % (Auto) 31.7 (20-40) % [place] % (Auto) 6.8 (2-11) % Eos % (Auto) 0.7 (0-4) % Baso % (Auto) 0.4 (0-2) % Lymph # (Auto) 2.6 (1.2-4.9) X10*3/uL [place] # (Auto) 0.6 (0.1-1.2) X10*3/uL Eos # (Auto) 0.1 (0.0-0.4) X10*3/uL Baso # (Auto) 0.0 (0.0-0.2) X10*3/uL Abs Immat Gran (auto) 0.02 (0.00-0.03) X10*3/uL Absolute Neuts (auto) 4.9 (2.0-8.3) x10*3/uL Absolute Nucleated RBC 0.000 (0.0-0.012) X10*3/uL Nucleated RBC % (auto) 0.0 (0.0-0.2) /100WBC PT (10.0-13.1) SEC INR (0.9-1.1) Sodium 142 (135-145) mmol/L Potassium 4.5 (3.3-5.1) mmol/L Chloride 105 (96-108) mmol/L Carbon Dioxide 27 (22-29) mmol/L Anion Gap 15 (12-20) BUN 12 (9-16) mg/dL Creatinine 0.82 (0.5-1.4) mg/dL Estim Creat Clear Calc 40.4 Estimated GFR > 60 Random Glucose 84 (60-115) mg/dL Calcium 9.9 D (8.4-10.2) mg/dL Magnesium 2.2 (1.6-2.6) mg/dL Total Bilirubin 0.5 (0.0-1.0) mg/dL AST 29 (5-31) U/L ALT 29 (0-31) U/L Alkaline Phosphatase 99 (39-117) U/L Troponin I High Sens 14.1 (<3.5-17.0) ng/L Total Protein 7.8 D (6.5-8.0) g/dL Albumin 4.5 (3.5-5.0) g/dL Lipase 29 (8-78) U/L Urine Color Urine Appearance Urine pH (5.0-8.0) Ur Specific [place] (1.005-1.025) Urine Protein (Neg-Trace) mg/dL Urine Glucose (UA) (Negative) mg/dL Urine Ketones (Negative) mg/dL Urine Blood (Negative) Urine Nitrite (Negative) Ur Leukocyte Esterase (Negative) 04/20/22 04/20/22 04/20/22 Range/Units 15:36 15:36 15:36 WBC Cancelled (4.8-10.8) X10*3/uL RBC Cancelled (4.20-5.50) X10*6/uL Hgb Cancelled (12.0-16.0) g/dl Hct Cancelled (37.0-47.0) % MCV Cancelled (80.0-98.0) fL MCH Cancelled (27.0-33.0) pg MCHC Cancelled (31.0-35.0) g/dl RDW Cancelled (11.0-16.0) % Plt Count Cancelled (160-400) X10*3/uL MPV Cancelled (9.4-12.3) fL Immature Gran % (Auto) Cancelled (0.0-0.4) % Neut % (Auto) Cancelled (45-73) % Lymph % (Auto) Cancelled (20-40) % Culberson % (Auto) Cancelled (2-11) % Eos % (Auto) Cancelled (0-4) % Baso % (Auto) Cancelled (0-2) % Lymph # (Auto) Cancelled (1.2-4.9) X10*3/uL [place] # (Auto) Cancelled (0.1-1.2) X10*3/uL Eos # (Auto) Cancelled (0.0-0.4) X10*3/uL Baso # (Auto) Cancelled (0.0-0.2) X10*3/uL Abs Immat Gran (auto) Cancelled (0.00-0.03) X10*3/uL Absolute Neuts (auto) Cancelled (2.0-8.3) x10*3/uL Absolute Nucleated RBC Cancelled (0.0-0.012) X10*3/uL Nucleated RBC % (auto) Cancelled (0.0-0.2) /100WBC PT 11.2 (10.0-13.1) SEC INR 1.0 (0.9-1.1) Sodium Cancelled (135-145) mmol/L Potassium Cancelled (3.3-5.1) mmol/L Chloride Cancelled (96-108) mmol/L Carbon Dioxide Cancelled (22-29) mmol/L Anion Gap Cancelled (12-20) BUN Cancelled (9-16) mg/dL Creatinine Cancelled (0.5-1.4) mg/dL Estim Creat Clear Calc Cancelled Estimated GFR Cancelled Random Glucose Cancelled (60-115) mg/dL Calcium Cancelled (8.4-10.2) mg/dL Magnesium Cancelled (1.6-2.6) mg/dL Total Bilirubin Cancelled (0.0-1.0) mg/dL AST Cancelled (5-31) U/L ALT Cancelled (0-31) U/L Alkaline Phosphatase Cancelled (39-117) U/L Troponin I High Sens (<3.5-17.0) ng/L Total Protein Cancelled (6.5-8.0) g/dL Albumin Cancelled (3.5-5.0) g/dL Lipase (8-78) U/L Urine Color Urine Appearance Urine pH (5.0-8.0) Ur Specific [place] (1.005-1.025) Urine Protein (Neg-Trace) mg/dL Urine Glucose (UA) (Negative) mg/dL Urine Ketones (Negative) mg/dL Urine Blood (Negative) Urine Nitrite (Negative) Ur Leukocyte Esterase (Negative) 04/20/22 Range/Units 15:39 WBC (4.8-10.8) X10*3/uL RBC (4.20-5.50) X10*6/uL Hgb (12.0-16.0) g/dl Hct (37.0-47.0) % MCV (80.0-98.0) fL MCH (27.0-33.0) pg MCHC (31.0-35.0) g/dl RDW (11.0-16.0) % Plt Count (160-400) X10*3/uL MPV (9.4-12.3) fL Immature Gran % (Auto) (0.0-0.4) % Neut % (Auto) (45-73) % Lymph % (Auto) (20-40) % Culberson % (Auto) (2-11) % Eos % (Auto) (0-4) % Baso % (Auto) (0-2) % Lymph # (Auto) (1.2-4.9) X10*3/uL [place] # (Auto) (0.1-1.2) X10*3/uL Eos # (Auto) (0.0-0.4) X10*3/uL Baso # (Auto) (0.0-0.2) X10*3/uL Abs Immat Gran (auto) (0.00-0.03) X10*3/uL Absolute Neuts (auto) (2.0-8.3) x10*3/uL Absolute Nucleated RBC (0.0-0.012) X10*3/uL Nucleated RBC % (auto) (0.0-0.2) /100WBC PT (10.0-13.1) SEC INR (0.9-1.1) Sodium (135-145) mmol/L Potassium (3.3-5.1) mmol/L Chloride (96-108) mmol/L Carbon Dioxide (22-29) mmol/L Anion Gap (12-20) BUN (9-16) mg/dL Creatinine (0.5-1.4) mg/dL Estim Creat Clear Calc Estimated GFR Random Glucose (60-115) mg/dL Calcium (8.4-10.2) mg/dL Magnesium (1.6-2.6) mg/dL Total Bilirubin (0.0-1.0) mg/dL AST (5-31) U/L ALT (0-31) U/L Alkaline Phosphatase (39-117) U/L Troponin I High Sens (<3.5-17.0) ng/L Total Protein (6.5-8.0) g/dL Albumin (3.5-5.0) g/dL Lipase (8-78) U/L Urine Color Yellow Urine Appearance Clear Urine pH 6.0 (5.0-8.0) Ur Specific [place] 1.010 (1.005-1.025) Urine Protein Negative (Neg-Trace) mg/dL Urine Glucose (UA) Negative (Negative) mg/dL Urine Ketones Negative (Negative) mg/dL Urine Blood Negative (Negative) Urine Nitrite Negative (Negative) Ur Leukocyte Esterase Negative (Negative) Imaging Data Venous duplex ultrasound of bilateral lower extremity: Attestation: I personally reviewed and interpreted this imaging study as follows: Radiologist's impression: RIGHT: There is normal venous compression and respiratory variation and augmented flow. The visualized common femoral vein, superficial femoral vein, profunda femoral vein, popliteal vein, and the trifurcation region shows no evidence of deep venous thrombosis. ? There is no significant popliteal fossa cyst. LEFT: There is normal venous compression and respiratory variation and augmented flow. The visualized common femoral vein, superficial femoral vein, profunda femoral vein, popliteal vein, and the trifurcation region shows no evidence of deep venous thrombosis. ? There is no significant popliteal fossa cyst. If the patient's symptoms persist, followup ultrasound in 5 days 7 days might be of value to exclude proximal propagation from a non-visualized calf vein. US/US venous duplex LE IMPRESSION: No DVT demonstrated in the bilateral lower extremities. CT scan of brain without contrast.: Attestation: I personally reviewed and interpreted this imaging study as follows: Radiologist's impression: FINDINGS: No acute findings. No intracranial hemorrhage, extraaxial fluid collection, focal mass effect or midline shift. There is atherosclerotic calcification of proximal intradural segments of vertebral arteries and cavernous carotid arteries. Mild patchy hypoattenuation within the supratentorial white matter is nonspecific but likely sequela of chronic, mild microangiopathy. The barnard-white matter differentiation is maintained. No evidence of an acute major vascular territory infarction. Mild parenchymal volume loss with commensurate prominence of ventricles and sulci; no hydrocephalus. The brainstem and cerebellum are unremarkable. The cerebellar tonsils are in normal position. The visualized paranasal sinuses, mastoid air cells and middle ear cavities are well aerated. Normal middle and inner ear anatomy is observed. No evidence of a skull base lesion. Prior ocular lens extractions. Temporomandibular joints are unremarkable. There is calcium deposition (likely calcium pyrophosphate dihydrate crystal deposition) along the transverse ligament posterior to the dens. ? CT/CT head/brain wo con IMPRESSION: No intracranial mass, hemorrhage or other acute intracranial pathology. CT scan abdomen pelvis without IV contrast: Attestation: I personally reviewed and interpreted this imaging study as follows: Radiologist's impression: FINDINGS: LUNG BASES: Bibasilar linear atelectasis.? LIVER, GALLBLADDER, AND BILIARY TREE: The liver is normal in size, shape, and attenuation. No focal hepatic lesion or biliary ductal dilatation is present. Cholecystectomy.? PANCREAS: Unremarkable.? SPLEEN: Unremarkable.? ADRENAL GLANDS: Unremarkable.? KIDNEYS AND URETERS: The kidneys are normal in size, shape, and attenuation. No hydronephrosis, hydroureter, or calculi seen. No perinephric stranding. Bilateral simple renal cysts. No dedicated follow-up imaging recommended. Duplicated left collecting system. BLADDER: Unremarkable.? GASTROINTESTINAL TRACT: Decompressed stomach. Normal caliber small bowel. No obstruction. Small bowel anastomosis seen in the anterior pelvis. No colonic wall thickening or acute inflammation. Scattered diverticulosis without diverticulitis. The appendix is not seen. No free air or free fluid.? ABDOMINAL WALL: No significant hernia is appreciated.? LYMPH NODES: Normal. VASCULAR: Normal caliber aorta with mild to moderate atherosclerotic calcification. PELVIC VISCERA: Uterus not seen. No adnexal mass.? OSSEOUS STRUCTURES: No acute or suspicious osseous abnormality. Mild degenerative change of the spine. Grade 1 anterolisthesis of L5 on S1. CT/CT abdomen pelvis wo con IMPRESSION: No acute findings in the abdomen or pelvis. No hydronephrosis or nephrolithiasis. Simple bilateral renal cysts for which no dedicated follow-up is recommended. 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 ? Colonic diverticulosis without diverticulitis. ? Appendix not seen. No findings to suggest acute appendicitis. ? Fleischner guidelines were followed. ECG Data Attestation: I personally reviewed and interpreted this ECG as follows: ECG interpretation date: 04/20/22 ECG interpretation time: 12:48 Interpretation: Sinus bradycardia with sinus arrhythmia with ventricular rate of 56 with nonspecific T-wave abnormalities no acute ischemic change are noted. Similar compared to prior EKG 07/13/2021. Discharge Plan Discharge Clinical Impression: Bilateral tinnitus, Bilateral renal stones, Diverticulosis Patient Disposition: Home, Self-Care Instructions: Diverticulosis (ED), Kidney Stones (ED), Tinnitus (ED) Prescriptions: New naproxen 500 mg tablet 500 mg PO BID PRN (Reason: pain) Qty: 10 0RF cyclobenzaprine 5 mg tablet 5 mg PO TID Qty: 10 0RF No Action gabapentin 300 mg capsule 300 mg PO BID nitroglycerin 0.4 mg tablet, sublingual 0.4 mg sublingual DIRECTED loratadine 10 mg tablet 1 tab PO BEDTIME omeprazole 40 mg capsule,delayed release(DR/EC) 1 cap PO DAILY tramadol 50 mg Tablet 50 mg PO BID PRN (Reason: Pain) gabapentin 100 mg Capsule 100 mg PO BEDTIME diclofenac sodium 1 % Gel 2 g TOPICAL BID amlodipine 5 mg Tablet 5 mg PO DAILY Qty: 30 0RF Protocol: Hold for SBP< HOLD for SBP < : 90 cholestyramine (with sugar) 4 gram Powder In Packet 4 g PO DAILY@0730 Qty: 30 0RF magnesium oxide 400 mg magnesium tablet 400 mg PO DAILY Qty: 30 0RF atorvastatin 80 mg tablet 80 mg PO BEDTIME Referrals: Feroz Reyes MD [Primary Care Provider] - 3 days Cornell Castellon MD [Physician] - 1 week Keaton Wren [Physician] - 1 week (For tinnitus) Print Language: Montserratian
--- NOTE | 2022-04-20 13:41 | PC.NURSE ---
Per torsten OVIEDO. Straight stick okay for lab work. NO need for IVF at this time.
[2022-04-20 15:45] LABS: MANUAL DIFF FLAG NO
[2022-04-20 15:53] LABS: Basophils Percent Auto 0.4 % (0-2); Eosinophils Absolute Auto 0.1 X10*3/uL (0.0-0.4); Eosinophils Percent Auto 0.7 % (0-4); Hematocrit 41.6 % (37.0-47.0); Hemoglobin 13.4 g/dl (12.0-16.0); Imm Gran Abs Auto 0.02 X10*3/uL (0.00-0.03); Imm Gran Pct Auto 0.2 % (0.0-0.4); Lymphocytes Absolute Auto 2.6 X10*3/uL (1.2-4.9); Lymphocytes Percent Auto 31.7 % (20-40); Mean Corpuscular HGB Conc 32.2 g/dl (31.0-35.0); Mean Corpuscular Volume 93.3 fL (80.0-98.0); Mean Platelet Volume 9.6 fL (9.4-12.3); Monocytes Absolute Auto 0.6 X10*3/uL (0.1-1.2); Monocytes Percent Auto 6.8 % (2-11); Neutrophils Absolute Auto 4.9 x10*3/uL (2.0-8.3); Neutrophils Percent Auto 60.2 % (45-73); Platelet Count 220 X10*3/uL (160-400); Red Blood Count 4.46 X10*6/uL (4.20-5.50); Red Cell Distribution Width 12.5 % (11.0-16.0); White Blood Count 8.1 X10*3/uL (4.8-10.8)
[2022-04-20 15:54] LABS: Appearance Urine Clear; Color Urine Yellow; Glucose Urine UA Negative (Negative); Leukocyte Esterase Urine Negative (Negative); Nitrite Urine Negative (Negative); Urine Blood Negative (Negative); Urine Ketones Negative (Negative); Urine Protein Negative (Neg-Trace)
[2022-04-20 16:08] LABS: Alanine Aminotransferase 29 U/L (0-31); Albumin Level 4.5 g/dL (3.5-5.0); Alkaline Phosphatase 99 U/L (39-117); Anion Gap 15 (12-20); Aspartate Amino Transferase 29 U/L (5-31); Bilirubin Total 0.5 mg/dL (0.0-1.0); Blood Urea Nitrogen 12 mg/dL (9-16); Calcium 9.9 mg/dL (8.4-10.2); Carbon Dioxide 27 mmol/L (22-29); Chloride 105 mmol/L (96-108); Creatinine Clr Calc Pharmacy 40.4; Estimated Glomerular Filt Rate > 60; Glucose Random 84 mg/dL (60-115); Lipase 29 U/L (8-78); Magnesium 2.2 mg/dL (1.6-2.6); Potassium 4.5 mmol/L (3.3-5.1); Sodium 142 mmol/L (135-145); Total Protein 7.8 g/dL (6.5-8.0)
[2022-04-20 16:10] LABS: Prothrombin Time 11.2 SEC (10.0-13.1)
[2022-04-20 16:20] LABS: Troponin-I High Sensitivity 14.1 ng/L (<3.5-17.0)
== END 2022-04-20 16:44 | disposition home or self-care (01) ==
PROVIDERS: Physician Assistant Medical; Emergency Provider Emergency Medicine; PCP Internal Medicine
DX: H93.13 Tinnitus, bilateral (principal); K57.30 Diverticulosis of large intestine without perforation or abscess without bleeding; N20.0 Calculus of kidney; R60.0 Localized edema; R10.11 Right upper quadrant pain; R10.31 Right lower quadrant pain; M54.50 Low back pain, unspecified; Z79.899 Other long term (current) drug therapy
CPT/HCPCS: 36415; 70450; 71046; 74176; 80053; 81003; 83690; 83735; 84484; 85025; 85610; 93005; 93970; 99283; 99284

== ENCOUNTER → 2022-05-14 10:11 | Outpatient (BNVA) | payer OTHER, MEDICAID, SELFPAY | PROVIDERS: PCP Internal Medicine; Visit Provider Internal Medicine Cardiovascular Disease | DX: R00.2 Palpitations (principal); I10 Essential (primary) hypertension | CPT/HCPCS: 99212 ==

== ENCOUNTER → 2022-06-05 08:22 | Outpatient (REF) | payer OTHER, MEDICAID, SELFPAY ==
--- NOTE | 2022-06-05 08:25 | CA_ITS ---
Transthoracic Echocardiogram Patient (Last, First, Middle): Prema Carpenter R Gender: Female Date of : 1940 Age: 81 Procedure Date: 06/05/2022 Procedure Type: Transthoracic Echocardiogram Location: OP Height: 144.78 cm Weight: 60.78 kg BSA: 1.52 m2 Heart Rate: bpm BP: 118 / 72 mmHg Cylinder Block Mechanic: RADHA Referring MD: Oscar Valiente MD Symptoms: R00.2 - Palpitations Study Quality: Good ECG Rhythm: Sinus Conclusions: - The left ventricular systolic function is normal. The visually estimated ejection fraction is between 65-70%. - Severe focal hypertrophy of the basal septum. - E/E prime ratio is >15, consistent with elevated filling pressures. - There is mild mitral annular calcification. - There is mild tricuspid valve regurgitation. Findings Left Ventricle Normal left ventricular cavity size. There is mildly increased left ventricular wall thickness. The left ventricular systolic function is normal. The visually estimated ejection fraction is between 65-70%. There is no dynamic left ventricular outflow tract obstruction. E/E prime ratio is >15, consistent with elevated filling pressures. Evidence suggests grade I (mild) diastolic dysfunction. Severe focal hypertrophy of the basal septum. Right Ventricle Normal right ventricular cavity size and systolic function. Atria Both atria are normal in size. Aortic Valve There is a normal trileaflet aortic valve. There is no aortic valve stenosis. There is trace (trivial) aortic valve regurgitation. Mitral Valve The mitral valve appears normal. There is mild mitral annular calcification. There is mild mitral valve regurgitation. There is no mitral valve stenosis. Pulmonic Valve The pulmonic valve is likely normal. There is trace pulmonic valve regurgitation. Tricuspid Valve Normal tricuspid valve structure. There is mild tricuspid valve regurgitation. There is no evidence of pulmonary hypertension. Great Vessels The asc aorta is normal in size. Venous The inferior vena cava is normal in size and collapses greater than 50% with inspiration. Pericardium/Pleural There is no evidence of pericardial effusion. Prior Study Comparison Changes noted compared to prior study dated: 12/22/2020. See comments on septum. Measurements 2D Linear Measurements IVSd: 1.16 0.6-0.9/0.6-1.0 cm LVIDd: 3.17 3.9-5.3/4.2-5.9 cm LVIDd Index: 2.09 2.4-3.2/2.2-3.1 cm/m2 LVIDs: 1.88 2.0-3.6 cm LVPWd: 1.02 0.7-1.1 cm LA Diam: 3.10 2.7-3.8/3.0-4.0 cm LAIDs Index: 2.04 1.5-2.3 cm/m2 LV Mass: 126.13 67-162/88-224 g LV Mass Index: 82.98 43-95/49-115 g/m2 LVOT Diam: 1.70 3.0+(-)1.3 cm 2D Systolic Function EF 4C: 63.40 >55% EF 2C: 79.60 >55% EF BiP: 72.80 >55% Mitral Valve MV Pk E: 0.89 MV PK A: 1.19 MV Decel Time: 316.00 E/A: 0.80 E'Lateral: 6.42 E'Medial: 3.48 E/E' Med: 25.70 E/E' Lat: 13.90 PHT: 92.00 MVA PHT: 2.39 Decel [place]: 2.83 Aortic Valve AoV Pk Elmo: 1.30 AoV Mn Elmo: 0.94 AoV VTI: 0.36 AoV Pk Grad: 7.00 Aov Mn Grad: 4.00 MARQUES Cont.VTI: 2.27 LVOT LVOT Pk Elmo: 1.17 LVOT Mn Elmo: 0.90 LVOT VTI: 0.36 LVOT Pk Grad: 5.00 LVOT Mn Grad: 4.00 LVOT Diam: 1.70 LVOT Area: 2.27 Diastolic Function MV Pk E: 0.89 MV Pk A: 1.19 E/A: 0.80 E'Medial: 3.48 E/E' Med: 25.70 E' Laterial: 6.42 E/E' Lat: 13.90 Right Ventricle TAPSE (mm): 19.30 TVS' Elmo: 10.40 Tricuspid Valve TR Pk Elmo: 2.67 TR Pk Grad: 29.00 RA Press: 3.00 RVSP: 32.00 Great Vessels Aorta Sinus of Valsalva: 3.24 2.0-3.[address] [place]: 2.59 1.7-3.4 cm Ao Asc: 3.10 2.1-3.4 cm Updated in Other Vendor System with Status of Final Jose Elias Shaw MD electronically signed on 06/05/2022 4:37:16 PM with status of Final
--- NOTE | 2022-06-05 08:25 | HM_ITS ---
Conclusion: 1. Patient was monitored for total period of 2 days and 23 hours 2. Baseline rhythm is normal sinus rhythm with average heart rate of 70 beats per minute 3. No significant pauses or bradycardia noted 4. Total of 809 PACs accounting for 0.27% of total beats account for occasional PACs 5. Patient activated and reported symptoms 20 1 times either shortness of breath or fluttering in the chest correlating with sinus rhythm. MTDD
== END ==
LOC: HO.CARD 08:22
PROVIDERS: Visit Provider Internal Medicine Cardiovascular Disease
DX: R00.2 Palpitations (principal)
CPT/HCPCS: 93242; 93306

== ENCOUNTER → 2022-06-27 13:21 | Outpatient (BNVA) | payer OTHER, MEDICAID, SELFPAY | PROVIDERS: PCP Internal Medicine; Visit Provider Nurse Practitioner Family | DX: I49.1 Atrial premature depolarization (principal); R00.2 Palpitations; R93.1 Abnormal findings on diagnostic imaging of heart and coronary circulation; I10 Essential (primary) hypertension | CPT/HCPCS: 99212 ==

== ENCOUNTER → 2022-09-04 11:35 | Outpatient (BNVA) | payer OTHER, MEDICAID, SELFPAY | PROVIDERS: PCP Internal Medicine; Visit Provider Urology | DX: N28.1 Cyst of kidney, acquired (principal) | CPT/HCPCS: 99212 ==

== ENCOUNTER → 2022-12-07 12:41 | Outpatient (BNVA) | payer OTHER, MEDICAID, SELFPAY | PROVIDERS: PCP Internal Medicine; Referring Provider Internal Medicine; Visit Provider Nurse Practitioner Family | DX: R00.2 Palpitations (principal); I49.1 Atrial premature depolarization; R93.1 Abnormal findings on diagnostic imaging of heart and coronary circulation; I10 Essential (primary) hypertension; I42.2 Other hypertrophic cardiomyopathy; E78.5 Hyperlipidemia, unspecified | CPT/HCPCS: 99212 ==

== ENCOUNTER 2023-07-21 15:43 | Emergency (ER) | payer OTHER, SELFPAY ==
--- NOTE | ~2023-07-21 | CT_ITS ---
EXAMINATION: CT ABDOMEN AND PELVIS WITH CONTRAST CLINICAL INFORMATION: Left lower quadrant pain. COMPARISON: CT abdomen and pelvis dated 04/20/2022. TECHNIQUE: Multidetector volumetric images were obtained from the superior aspect of the liver through the pubic symphysis following administration 85 mL of Omnipaque 350 intravenous contrast. Sagittal and coronal reformatted images were obtained on the technologist's workstation. Oral contrast: No This CT examination was performed using dose optimization techniques as appropriate, variously including the following: *Automated exposure control *Adjustment of mA and/or kV according to patient size (this includes techniques or standardized protocols for targeted exams where dose is matched to indication/reason for exam; i.e. extremities or head) *Use of iterative reconstruction technique DLP: 473 mGy-cm FINDINGS: LUNG BASES: There is mild bibasilar linear scar/subsegmental atelectasis LIVER, GALLBLADDER, AND BILIARY TREE: The liver is normal in size, shape, and attenuation. No focal hepatic lesion or biliary ductal dilatation is present. The gallbladder is surgically absent. PANCREAS: Unremarkable. SPLEEN: Unremarkable. ADRENAL GLANDS: Unremarkable. KIDNEYS AND URETERS: The kidneys are normal in size, shape, and attenuation. No hydronephrosis, hydroureter, or calculi seen. There are multiple low-attenuation benign, simple bilateral renal cysts, for which no imaging follow-up is recommended. No perinephric stranding. BLADDER: Unremarkable. GASTROINTESTINAL TRACT: There is a small posterior gastric diverticulum. There is moderate diverticulosis, without acute diverticulitis. There are patent mid small bowel and distal sigmoid anastomotic staple lines. No obstruction, free intraperitoneal air or abscess is seen. There is no focal bowel wall thickening. The vermiform appendix is not identified with certainty; however, there is no finding to suggest appendicitis ABDOMINAL WALL: There are healed anterior abdominal wall incisions. No focal hernia defect is noted. LYMPH NODES: Normal. VASCULAR: There is moderate aortoiliac atherosclerotic calcification. No abdominal aortic aneurysm or dissection is seen. PELVIC VISCERA: Surgically absent. No pelvic mass, free fluid or lymphadenopathy is seen OSSEOUS STRUCTURES: There is moderate degenerative disc disease at L5-S1. No acute or aggressive osseous finding is noted. CT/CT abdomen pelvis w IV con IMPRESSION: 1. There is moderate diverticulosis, without acute diverticulitis. There are patent sigmoid and mid small bowel anastomotic staple lines. No obstruction, free intraperitoneal air or abscess is seen. There is no focal bowel wall thickening. No appendicitis is seen. 2. The gallbladder is surgically absent. 3. No urinary calculus or obstruction is seen. 4. No abdominopelvic mass, free fluid lymphadenopathy is seen. 5. There is degenerative disc disease at L5-S1. No aggressive osseous lesion is seen. Fleischner guidelines were followed.
--- NOTE | 2023-07-21 16:13 | ED.ABDPAIN ---
HPI - Abdominal Pain General Chief Complaint: Nausea/Vomiting/Diarrhea Stated Complaint: diarrhea,abd pain Time Seen by Provider: 07/21/23 18:02 Source: patient Mode of arrival: ambulatory Related Data Home Medications Medication Instructions Recorded Confirmed gabapentin 300 mg capsule 300 mg PO BID 09/21/20 12/07/22 nitroglycerin 0.4 mg sublingual 0.4 mg sublingual DIRECTED 06/19/21 12/07/22 tablet diclofenac sodium 1 % topical gel 2 g topical BID 07/13/21 12/07/22 gabapentin 100 mg capsule 100 mg PO BEDTIME 07/13/21 12/07/22 latanoprost 0.005 % eye drops 1 drp ophthalmic (eye) BEDTIME 05/14/22 12/07/22 loratadine 10 mg tablet 10 mg PO BEDTIME 05/14/22 12/07/22 potassium chloride 10 mEq 10 meq PO BID 05/14/22 12/07/22 tablet,extended release(part/cryst) rosuvastatin 40 mg tablet 40 mg PO DAILY 05/14/22 12/07/22 calcium carbonate 200 mg calcium 500 mg PO TID 06/27/22 12/07/22 (500 mg) chewable tablet (Antacid (calcium carbonate)) cholecalciferol (vitamin D3) 25 25 mcg PO DAILY 06/27/22 12/07/22 mcg (1,000 unit) capsule cholestyramine (with sugar) 4 gram g PO 06/27/22 12/07/22 oral powder Previous Rx's Medication Instructions Recorded amlodipine 5 mg tablet 5 mg PO DAILY #30 tabs 07/15/21 cyclobenzaprine 5 mg tablet 5 mg PO TID Muscular skeletal pain 04/20/22 #10 tabs hydrocortisone acetate 25 mg 25 mg ND BID #12 ea 07/21/23 rectal suppository (Anusol-HC) Allergies Allergy/AdvReac Type Severity Reaction Status Date / Time latex Allergy Rash Verified 07/21/23 16:14 Latex Gloves Allergy Unknown rash Uncoded 07/21/23 16:14 Anjali spice Allergy Unknown Rash Uncoded 07/21/23 16:14 [facility] Past Medical History Medical History Abnormal EKG Anemia Chest discomfort Dark stools DVT (deep venous thrombosis) Gastritis GERD (gastroesophageal reflux disease) HTN (hypertension) PAC (premature atrial contraction) Pulmonary embolism Renal cyst Surgical History History of colon resection History of laparoscopic cholecystectomy Family History Family History Father No problems noted. Mother No problems noted. Social History Social History Household Members: Family Housing: House Do you presently have visiting nurse or other home services: No Alcohol intake: never Patient Tobacco Use Status: Never used Tobacco Smoked in Last 30 Days: No Use of substances other than those prescribed or required for medical reasons: No Advance Directives: Yes Advance Directives on File: Yes Advance Directives Date on File: 07/13/21 service: No Current occupational status: retired Physical Exam ED Vital Signs: Vital Signs - 24 hr 07/21/23 16:14 07/21/23 22:27 Temperature 97.5 F 98.1 F Pulse Rate 90 81 Respiratory Rate 16 18 Blood Pressure 154/67 H 154/55 H Pulse Oximetry 98 99 Oxygen Delivery Method Room Air Room Air BMI result Body Mass Index 29.0 GI Rectal Exam - Female: visual inspection normal, normal sphincter tone and No External hemorrhoid(s) present Course Course Course Narrative: RME: 82yo F w/PMHx PE/DVT, HTN, PVCs, anemia, GERD, diverticulitis, s/p cholecystectomy and colon resection c/o multiple episodes of watery/loose diarrhea since 1AM. Admits to green and blood streaked. Also reports abdominal pain & chills. denies vomiting, fever, taking AC Labs, UA, occult stool & stool studies ordered Full HPI, ROS and PE to be performed by primary ED provider. Reevaluation(s) Reevaluation #1: CT scan negative for diverticulitis. The patient has no evidence of a significant diverticular bleed. On exam she has no external hemorrhoids, will treat for internal hemorrhoids with Anusol suppositories. Time: 23:08 Medical Decision Making Differential Diagnosis Differential Diagnoses: The differential diagnosis associated with the presentation includes Lab Data 07/21/23 16:51 07/21/23 16:51 Labs: Lab Results 07/21/23 07/21/23 Range/Units 16:51 23:06 WBC 12.1 H (4.8-10.8) X10*3/uL RBC 4.14 L (4.20-5.50) X10*6/uL Hgb 12.5 (12.0-16.0) g/dl Hct 38.5 (37.0-47.0) % MCV 93.0 (80.0-98.0) fL MCH 30.2 (27.0-33.0) pg MCHC 32.5 (31.0-35.0) g/dl RDW 14.0 (11.0-16.0) % Plt Count 188 (160-400) X10*3/uL MPV 9.1 L (9.4-12.3) fL Immature Gran % (Auto) 1.1 H (0.0-0.4) % Neut % (Auto) 70.5 (45-73) % Lymph % (Auto) 17.4 L (20-40) % Grant % (Auto) 10.1 (2-11) % Eos % (Auto) 0.7 (0-4) % Baso % (Auto) 0.2 (0-2) % Lymph # (Auto) 2.1 (1.2-4.9) X10*3/uL Grant # (Auto) 1.2 (0.1-1.2) X10*3/uL Eos # (Auto) 0.1 (0.0-0.4) X10*3/uL Baso # (Auto) 0.0 (0.0-0.2) X10*3/uL Abs Immat Gran (auto) 0.13 H (0.00-0.03) X10*3/uL Absolute Neuts (auto) 8.6 H (2.0-8.3) x10*3/uL Absolute Nucleated RBC 0.000 (0.0-0.012) X10*3/uL Nucleated RBC % (auto) 0.0 (0.0-0.2) /100WBC PT 11.5 (11.1-13.3) SEC INR 0.9 (0.9-1.1) Sodium 140 (135-145) mmol/L Potassium 3.7 (3.3-5.1) mmol/L Chloride 109 H (96-108) mmol/L Carbon Dioxide 22 (22-29) mmol/L Anion Gap 13 (12-20) BUN 18 H (9-16) mg/dL Creatinine 0.86 (0.5-1.4) mg/dL Estim Creat Clear Calc 38.4 Estimated GFR > 60 Random Glucose 88 (60-115) mg/dL Calcium 10.1 (8.4-10.2) mg/dL Magnesium 1.7 (1.6-2.6) mg/dL Total Bilirubin 0.5 (0.0-1.0) mg/dL Direct Bilirubin 0.1 (0.0-0.5) mg/dL AST 16 (5-31) U/L ALT 21 (0-31) U/L Alkaline Phosphatase 68 (39-117) U/L Total Protein 6.8 (6.5-8.0) g/dL Albumin 3.8 (3.5-5.0) g/dL Lipase 21 (8-78) U/L Urine Color Dark Yellow Urine Appearance Clear Urine pH 5.0 (5.0-9.0) Ur Specific [place] 1.025 (1.005-1.025) Urine Protein Trace (Neg-Trace) mg/dL Urine Glucose (UA) Negative (Negative) mg/dL Urine Ketones Trace (Negative) mg/dL Urine Blood Negative (Negative) Urine Nitrite Negative (Negative) Ur Leukocyte Esterase Negative (Negative) Stool Occult Blood POSITIVE (NEGATIVE) COVID-19 ([place]ETER[place]) Positive A (Negative) COVID-19 Clin Com See Note Influenza Type A ([place]) Negative (Negative) Influenza Type B ([place]) Negative (Negative) Influenza A & B Note See Note Medications Administered Discontinued Medications Generic Name Dose Route Start Last Admin Trade Name Freq PRN Reason Stop Dose Admin Sodium Chloride 1,000 mls @ 999 mls/hr 07/21/23 18:45 07/21/23 18:52 Ns IV 07/21/23 19:45 999 mls/hr .Q1H1M DIANE Administration Iohexol 100 ml 07/21/23 20:49 07/21/23 20:49 Iohexol 350 Mg/Ml 100 Ml Infus..Btl IV 07/21/23 20:50 85 ml ONCE ONE Administration Morphine Sulfate 4 mg 07/21/23 18:43 07/21/23 18:55 Morphine Sulfate 4 Mg/Ml Cartridge IVPUSH 07/21/23 18:44 4 mg ONCE ONE Administration Protocol Ondansetron HCl 4 mg 07/21/23 18:43 07/21/23 18:52 Ondansetron Hcl 4 Mg/2 Ml Vial IVPUSH 07/21/23 18:44 4 mg ONCE ONE Administration Discharge Plan Discharge Clinical Impression: Bright red rectal bleeding Patient Disposition: Home, Self-Care Instructions: Rectal Bleeding (ED) Additional Instructions: Your blood counts were within normal limits. Your white blood cell count was slightly high at 12.1 K. There was no evidence of diverticulitis on CT imaging You likely have internal hemorrhoids causing your bloody stool Use Anusol as directed and follow-up with GI You had some microscopic blood within your stool on rectal exam. Prescriptions: New hydrocortisone acetate [Anusol-HC] 25 mg suppository 25 mg ND BID Qty: 12 0RF No Action gabapentin 300 mg capsule 300 mg PO BID nitroglycerin 0.4 mg tablet, sublingual 0.4 mg sublingual DIRECTED loratadine 10 mg tablet 10 mg PO BEDTIME gabapentin 100 mg Capsule 100 mg PO BEDTIME diclofenac sodium 1 % Gel 2 g TOPICAL BID amlodipine 5 mg Tablet 5 mg PO DAILY Qty: 30 0RF Protocol: Hold for SBP< HOLD for SBP < : 90 cyclobenzaprine 5 mg tablet 5 mg PO TID Qty: 10 0RF rosuvastatin 40 mg tablet 40 mg PO DAILY latanoprost 0.005 % drops 1 drp ophthalmic (eye) BEDTIME potassium chloride 10 mEq tablet,ER particles/crystals 10 meq PO BID calcium carbonate [Antacid (calcium carbonate)] 200 mg calcium (500 mg) tablet,chewable 500 mg PO TID cholestyramine (with sugar) 4 gram powder PO cholecalciferol (vitamin D3) 25 mcg (1,000 unit) capsule 25 mcg PO DAILY Referrals: Kamini Johnson MD [Physician] - (bright red rectal bleeding) Interventions: ED Discharge Assessment Last Done: 07/22/23 01:03 Discharge Date/Time: 07/22/23 00:15
[2023-07-21 16:14] VITALS: BP 154/67; PULSE 90; RESP 16; TEMP 36.4; O2SAT 98; BMI 29.0
--- NOTE | 2023-07-21 16:57 | PC.NURSE ---
Patient has had diarrhea consistently since 5 this morning, and with the last movement she noted blood. Provider recommended patient come to be evaluated due to history of diverticulitis. Patient is alert and oriented, complaining of pain in her lower abdomen that extends to her back. Patient is otherwise well appearing, no s/s of distress noted.
[2023-07-21 17:00] LABS: MANUAL DIFF FLAG NO
[2023-07-21 17:04] LABS: Basophils Percent Auto 0.2 % (0-2); Eosinophils Absolute Auto 0.1 X10*3/uL (0.0-0.4); Eosinophils Percent Auto 0.7 % (0-4); Hematocrit 38.5 % (37.0-47.0); Hemoglobin 12.5 g/dl (12.0-16.0); Imm Gran Abs Auto 0.13 X10*3/uL (0.00-0.03); Imm Gran Pct Auto 1.1 % (0.0-0.4); Lymphocytes Absolute Auto 2.1 X10*3/uL (1.2-4.9); Lymphocytes Percent Auto 17.4 % (20-40); Mean Corpuscular HGB Conc 32.5 g/dl (31.0-35.0); Mean Corpuscular Hemoglobin 30.2 pg (27.0-33.0); Mean Platelet Volume 9.1 fL (9.4-12.3); Monocytes Absolute Auto 1.2 X10*3/uL (0.1-1.2); Monocytes Percent Auto 10.1 % (2-11); Neutrophils Absolute Auto 8.6 x10*3/uL (2.0-8.3); Neutrophils Percent Auto 70.5 % (45-73); Platelet Count 188 X10*3/uL (160-400); Red Blood Count 4.14 X10*6/uL (4.20-5.50); White Blood Count 12.1 X10*3/uL (4.8-10.8)
[2023-07-21 17:06] LABS: Appearance Urine Clear; Color Urine Dark Yellow; Glucose Urine UA Negative (Negative); Leukocyte Esterase Urine Negative (Negative); Nitrite Urine Negative (Negative); Specific Gravity - Urine 1.025 (1.005-1.025); Urine Blood Negative (Negative); Urine Ketones Trace mg/dL (Negative); Urine Protein Trace mg/dL (Neg-Trace)
[2023-07-21 17:11] LABS: COVID-19 Test Positive (Negative); IDNOW Serial# BCCEAD1C
[2023-07-21 17:15] LABS: INTERNATIONAL NORM RATIO 0.9 (0.9-1.1); Prothrombin Time 11.5 SEC (11.1-13.3)
[2023-07-21 17:16] LABS: Alanine Aminotransferase 21 U/L (0-31); Albumin Level 3.8 g/dL (3.5-5.0); Alkaline Phosphatase 68 U/L (39-117); Anion Gap 13 (12-20); Aspartate Amino Transferase 16 U/L (5-31); Bilirubin Direct 0.1 mg/dL (0.0-0.5); Bilirubin Total 0.5 mg/dL (0.0-1.0); Blood Urea Nitrogen 18 mg/dL (9-16); Calcium 10.1 mg/dL (8.4-10.2); Carbon Dioxide 22 mmol/L (22-29); Chloride 109 mmol/L (96-108); Creatinine Clr Calc Pharmacy 38.4; Estimated Glomerular Filt Rate > 60; Glucose Random 88 mg/dL (60-115); Lipase 21 U/L (8-78); Magnesium 1.7 mg/dL (1.6-2.6); Potassium 3.7 mmol/L (3.3-5.1); Sodium 140 mmol/L (135-145); Total Protein 6.8 g/dL (6.5-8.0)
[2023-07-21 17:18] LABS: IDNOW Serial# 9DB6401D; Influenza A Negative (Negative); Influenza B2 Negative (Negative)
--- NOTE | 2023-07-21 18:22 | ED.GENADULT ---
HPI - General Adult General Chief complaint: Nausea/Vomiting/Diarrhea Stated complaint: diarrhea,abd pain Time Seen by Provider: 07/21/23 18:02 Source: patient and family Mode of arrival: ambulatory Limitations: no limitations History of Present Illness HPI narrative: Pt is a 82yo female who presents to the ED with lower abdominal pain and diarrhea. She states that the pain and diarrhea started at 0800 and the diarrhea continued until 1430. She noticed reddish-brown color changes to the stool. She also has been and still in nauseas but denies vomiting. Pt has a hx of diverticulitis with a colon resection. Last episode and colon resection were 5-6 years ago and pt reports it felt the same as she feels now. Pt notes the abdominal pain is like 7/10 gas pain that radiates from the lower abdomen around the sides and into the back. Pt was diagnosed with COVID last night and only other sick contact was her granddaughter who has RSV. Pt notes associated chills but unsure of fever. Pt also describes chest pain that has been intermittent for the past week. Denies SOB, headaches, or dizziness. Related Data Home Medications Medication Instructions Recorded Confirmed gabapentin 300 mg capsule 300 mg PO BID 09/21/20 12/07/22 nitroglycerin 0.4 mg sublingual 0.4 mg sublingual DIRECTED 06/19/21 12/07/22 tablet diclofenac sodium 1 % topical gel 2 g topical BID 07/13/21 12/07/22 gabapentin 100 mg capsule 100 mg PO BEDTIME 07/13/21 12/07/22 latanoprost 0.005 % eye drops 1 drp ophthalmic (eye) BEDTIME 05/14/22 12/07/22 loratadine 10 mg tablet 10 mg PO BEDTIME 05/14/22 12/07/22 potassium chloride 10 mEq 10 meq PO BID 05/14/22 12/07/22 tablet,extended release(part/cryst) rosuvastatin 40 mg tablet 40 mg PO DAILY 05/14/22 12/07/22 calcium carbonate 200 mg calcium 500 mg PO TID 06/27/22 12/07/22 (500 mg) chewable tablet (Antacid (calcium carbonate)) cholecalciferol (vitamin D3) 25 25 mcg PO DAILY 06/27/22 12/07/22 mcg (1,000 unit) capsule cholestyramine (with sugar) 4 gram g PO 06/27/22 12/07/22 oral powder Previous Rx's Medication Instructions Recorded amlodipine 5 mg tablet 5 mg PO DAILY #30 tabs 07/15/21 cyclobenzaprine 5 mg tablet 5 mg PO TID Muscular skeletal pain 04/20/22 #10 tabs hydrocortisone acetate 25 mg 25 mg NC BID #12 ea 07/21/23 rectal suppository (Anusol-HC) Allergies Allergy/AdvReac Type Severity Reaction Status Date / Time latex Allergy Rash Verified 07/21/23 16:14 Latex Gloves Allergy Unknown rash Uncoded 07/21/23 16:14 Anjali spice Allergy Unknown Rash Uncoded 07/21/23 16:14 Review of Systems Constitutional: Constitutional: Reports chills, Denies fever(s) and Denies headache(s) Eyes: Eyes: Denies change in vision ENT: Denies dizziness and Denies headache(s) Cardiovascular: Cardiovascular: Reports chest pain, Denies leg edema, Denies lightheadedness, Denies radiating jaw, neck or arm pain, Denies palpitations and Denies dyspnea Respiratory: Respiratory: Denies cough and Denies dyspnea Gastrointestinal: Gastrointestinal: Reports constipation (pt notes constipation last week leading up to today), Reports diarrhea (reddish brown color), Reports nausea and Denies vomiting Genitourinary: Genitourinary: Denies difficulty voiding Musculoskeletal: Musculoskeletal: Reports back pain Neurologic: Denies dizziness and Denies headache(s) Endocrine: Endocrine: Denies palpitations PMFSH Past Medical History Medical History Abnormal EKG Anemia Chest discomfort Dark stools DVT (deep venous thrombosis) Gastritis GERD (gastroesophageal reflux disease) HTN (hypertension) PAC (premature atrial contraction) Pulmonary embolism Renal cyst Surgical History History of colon resection History of laparoscopic cholecystectomy Family History Family History Father No problems noted. Mother No problems noted. Social History Household Members: Family Housing: House Do you presently have visiting nurse or other home services: No Alcohol intake: never Patient Tobacco Use Status: Never used Tobacco Smoked in Last 30 Days: No Use of substances other than those prescribed or required for medical reasons: No Advance Directives: Yes Advance Directives on File: Yes Advance Directives Date on File: 07/13/21 service: No Current occupational status: retired Physical Exam ED Vital Signs: Vital Signs - 24 hr 07/21/23 16:14 07/21/23 22:27 Temperature 97.5 F 98.1 F Pulse Rate 90 81 Respiratory Rate 16 18 Blood Pressure 154/67 H 154/55 H Pulse Oximetry 98 99 Oxygen Delivery Method Room Air Room Air BMI result Body Mass Index 29.0 Const General: cooperative, comfortable, no acute distress, alert and awake Orientation/consciousness: patient oriented x3 HENMT Head: Yes normocephalic and Yes atraumatic Ears: hearing grossly normal bilaterally General nose exam: Normal external nose present Mouth: Normal oral and palatal mucosa present Eyes General: appearance normal, both eyes and all related structures Pupils: Equal, round and reactive pupils present EOM: EOMs intact bilaterally Direct Ophthalmoscopy: normal light reflex Chest Chest palpation & inspection: normal inspection of the chest Resp Effort & Inspection: normal respiratory effort, able to speak in complete sentences and no cough Auscultation: clear to auscultation bilaterally Cardio Rate: regular rate Rhythm: regular rhythm Heart sounds: S1 normal heart sound present and S2 normal heart sound present GI Inspection: Yes normal to inspection and Yes scar (prior surgical scar lateral to the umbilicus on the right side) Palpation (GI): Soft to palpation, Tenderness to palpation present (GI) in the LLQ (most severe) and suprapubicly and no masses Auscultation: normal bowel sounds Rectal Exam - Female: visual inspection normal, normal sphincter tone, heme positive stool and No External hemorrhoid(s) present Neuro General: patient oriented x3 Cranial nerves: Yes CN's II-XII intact bilaterally and Yes Equal, round and reactive pupils present Motor exam (neuro): 5/5 motor strength present throughout Medications Administered Discontinued Medications Generic Name Dose Route Start Last Admin Trade Name Freq PRN Reason Stop Dose Admin Sodium Chloride 1,000 mls @ 999 mls/hr 07/21/23 18:45 07/21/23 18:52 Ns IV 07/21/23 19:45 999 mls/hr .Q1H1M DIANE Administration Iohexol 100 ml 07/21/23 20:49 07/21/23 20:49 Iohexol 350 Mg/Ml 100 Ml Infus..Btl IV 07/21/23 20:50 85 ml ONCE ONE Administration Morphine Sulfate 4 mg 07/21/23 18:43 07/21/23 18:55 Morphine Sulfate 4 Mg/Ml Cartridge IVPUSH 07/21/23 18:44 4 mg ONCE ONE Administration Protocol Ondansetron HCl 4 mg 07/21/23 18:43 07/21/23 18:52 Ondansetron Hcl 4 Mg/2 Ml Vial IVPUSH 07/21/23 18:44 4 mg ONCE ONE Administration Medical Decision Making Medical Decision Making [facility] Narrative: 82-year-old female presents for evaluation of bloody diarrhea with left lower quadrant abdominal pain since early this morning. He has a history of diverticulitis, she is tender on palpation without guarding to the left lower quadrant. History exam is most consistent with diverticulitis. She has a slight leukocytosis of 12.1 K. No evidence of sepsis. However will get a CT scan the abdomen pelvis to evaluate for colitis versus diverticulitis. Differential Diagnosis Differential Diagnoses: The differential diagnosis associated with the presentation includes (diverticulitis, colitis, diverticulosis, gastroenteritis, food poisoning) Admission/Observation Consideration of admission/observation: Escalation of care including admission/observation considered Lab Data [facility] Lab Attestation statement: I reviewed the patient's lab results. Mild leukocytosis to 12.1 K. No anemia. Normal platelet count. Patient's chloride is just above normal at 109. BUN is slightly elevated to 18. No other electrolyte/chemistry abnormalities. 07/21/23 16:51 07/21/23 16:51 Labs: Lab Results 07/21/23 07/21/23 Range/Units 16:51 23:06 WBC 12.1 H (4.8-10.8) X10*3/uL RBC 4.14 L (4.20-5.50) X10*6/uL Hgb 12.5 (12.0-16.0) g/dl Hct 38.5 (37.0-47.0) % MCV 93.0 (80.0-98.0) fL MCH 30.2 (27.0-33.0) pg MCHC 32.5 (31.0-35.0) g/dl RDW 14.0 (11.0-16.0) % Plt Count 188 (160-400) X10*3/uL MPV 9.1 L (9.4-12.3) fL Immature Gran % (Auto) 1.1 H (0.0-0.4) % Neut % (Auto) 70.5 (45-73) % Lymph % (Auto) 17.4 L (20-40) % [place] % (Auto) 10.1 (2-11) % Eos % (Auto) 0.7 (0-4) % Baso % (Auto) 0.2 (0-2) % Lymph # (Auto) 2.1 (1.2-4.9) X10*3/uL [place] # (Auto) 1.2 (0.1-1.2) X10*3/uL Eos # (Auto) 0.1 (0.0-0.4) X10*3/uL Baso # (Auto) 0.0 (0.0-0.2) X10*3/uL Abs Immat Gran (auto) 0.13 H (0.00-0.03) X10*3/uL Absolute Neuts (auto) 8.6 H (2.0-8.3) x10*3/uL Absolute Nucleated RBC 0.000 (0.0-0.012) X10*3/uL Nucleated RBC % (auto) 0.0 (0.0-0.2) /100WBC PT 11.5 (11.1-13.3) SEC INR 0.9 (0.9-1.1) Sodium 140 (135-145) mmol/L Potassium 3.7 (3.3-5.1) mmol/L Chloride 109 H (96-108) mmol/L Carbon Dioxide 22 (22-29) mmol/L Anion Gap 13 (12-20) BUN 18 H (9-16) mg/dL Creatinine 0.86 (0.5-1.4) mg/dL Estim Creat Clear Calc 38.4 Estimated GFR > 60 Random Glucose 88 (60-115) mg/dL Calcium 10.1 (8.4-10.2) mg/dL Magnesium 1.7 (1.6-2.6) mg/dL Total Bilirubin 0.5 (0.0-1.0) mg/dL Direct Bilirubin 0.1 (0.0-0.5) mg/dL AST 16 (5-31) U/L ALT 21 (0-31) U/L Alkaline Phosphatase 68 (39-117) U/L Total Protein 6.8 (6.5-8.0) g/dL Albumin 3.8 (3.5-5.0) g/dL Lipase 21 (8-78) U/L Urine Color Dark Yellow Urine Appearance Clear Urine pH 5.0 (5.0-9.0) Ur Specific [place] 1.025 (1.005-1.025) Urine Protein Trace (Neg-Trace) mg/dL Urine Glucose (UA) Negative (Negative) mg/dL Urine Ketones Trace (Negative) mg/dL Urine Blood Negative (Negative) Urine Nitrite Negative (Negative) Ur Leukocyte Esterase Negative (Negative) Stool Occult Blood POSITIVE (NEGATIVE) COVID-19 ([place]) Positive A (Negative) COVID-19 Clin Com See Note Influenza Type A ([place]) Negative (Negative) Influenza Type B ([place]) Negative (Negative) Influenza A & B Note See Note Discharge Plan Discharge Clinical Impression: Bright red rectal bleeding Patient Disposition: Home, Self-Care Instructions: Rectal Bleeding (ED) Additional Instructions: Your blood counts were within normal limits. Your white blood cell count was slightly high at 12.1 K. There was no evidence of diverticulitis on CT imaging You likely have internal hemorrhoids causing your bloody stool Use Anusol as directed and follow-up with GI You had some microscopic blood within your stool on rectal exam. Prescriptions: New hydrocortisone acetate [Anusol-HC] 25 mg suppository 25 mg NC BID Qty: 12 0RF No Action gabapentin 300 mg capsule 300 mg PO BID nitroglycerin 0.4 mg tablet, sublingual 0.4 mg sublingual DIRECTED loratadine 10 mg tablet 10 mg PO BEDTIME gabapentin 100 mg Capsule 100 mg PO BEDTIME diclofenac sodium 1 % Gel 2 g TOPICAL BID amlodipine 5 mg Tablet 5 mg PO DAILY Qty: 30 0RF Protocol: Hold for SBP< HOLD for SBP < : 90 cyclobenzaprine 5 mg tablet 5 mg PO TID Qty: 10 0RF rosuvastatin 40 mg tablet 40 mg PO DAILY latanoprost 0.005 % drops 1 drp ophthalmic (eye) BEDTIME potassium chloride 10 mEq tablet,ER particles/crystals 10 meq PO BID calcium carbonate [Antacid (calcium carbonate)] 200 mg calcium (500 mg) tablet,chewable 500 mg PO TID cholestyramine (with sugar) 4 gram powder PO cholecalciferol (vitamin D3) 25 mcg (1,000 unit) capsule 25 mcg PO DAILY Referrals: Kamini Johnson MD [Physician] - (bright red rectal bleeding)
[2023-07-21] MEDS: 0.9 % Sodium Chloride 1,000 ML 999 ML IV (18:52)
[2023-07-21] MEDS: ondansetron HCL 4 MG/2 ML VIAL IVPUSH (18:52)
[2023-07-21] MEDS: Morphine Sulfate 4 MG/ML CARTRIDGE IVPUSH (18:55)
[2023-07-21] MEDS: iohexoL 350 MG/ML 100 ML INFUS..BTL IV (20:49)
[2023-07-21 22:27] VITALS: BP 154/55; PULSE 81; RESP 18; TEMP 36.7; O2SAT 99
[2023-07-21 23:13] LABS: OBS Int Ctl Valid YES; OBS1 POSITIVE (NEGATIVE)
[2023-07-22 00:10] VITALS: BP 132/86; PULSE 76; RESP 16; O2SAT 97
== END 2023-07-22 00:15 | disposition home or self-care (01) ==
PROVIDERS: Physician Assistant; Emergency Provider Internal Medicine; PCP Internal Medicine
DX: R11.2 Nausea with vomiting, unspecified (principal); R10.32 Left lower quadrant pain; Z11.52 Encounter for screening for COVID-19; Z20.822 Contact with and (suspected) exposure to COVID-19; Z79.899 Other long term (current) drug therapy
CPT/HCPCS: 74177; 80048; 80076; 81003; 82272; 83690; 83735; 85025; 85610; 87502; 87635; 96374; 96375; 99284; J2270; J2405; Q9967

== ENCOUNTER 2023-10-15 18:04 | Observation (INO) | payer OTHER, SELFPAY ==
--- NOTE | ~2023-10-15 | CT_ITS ---
EXAMINATION: CT HEAD WITHOUT CONTRAST CLINICAL INFORMATION: Headache. COMPARISON: CT head 04/20/2022. TECHNIQUE: Contiguous axial imaging was performed from the skull base to vertex without intravenous administration of contrast. This CT examination was performed using dose optimization techniques as appropriate, variously including the following: *Automated exposure control *Adjustment of mA and/or kV according to patient size (this includes techniques or standardized protocols for targeted exams where dose is matched to indication/reason for exam; i.e. extremities or head) *Use of iterative reconstruction technique DLP: 604 mGy-cm FINDINGS: Scattered focal calcific plaques are present in the intradural segments of the vertebral arteries. Mild diffuse commensurate prominence of ventricles and sulci. Moderate segmental calcific atherosclerosis of the cavernous portions of the internal carotid arteries. Mild scattered subcortical and periventricular white matter patchy hypodensities likely representing mild chronic microangiopathic ischemic changes. No intrarenal hemorrhage, tumors or definitive acute infarcts. Moderate hyperostosis frontalis interna. Bilateral ocular lens extractions. No significant opacification of the visualized paranasal sinuses, mastoid air cells and middle ear cavities. CT/CT head/brain wo IV con IMPRESSION: 1. No acute intracranial abnormalities. 2. Mild chronic microangiopathic ischemic changes.
--- NOTE | ~2023-10-15 | XR_ITS ---
EXAMINATION: XR CHEST CLINICAL INFORMATION: Left-sided numbness. COMPARISON: 04/20/2022 TECHNIQUE: Frontal view of the chest was obtained. FINDINGS: The cardiomediastinal silhouette is within normal limits and stable. There is no focal lung consolidation or pleural effusion. The bony structures are osteopenic. The soft tissues are unremarkable. XR/XR chest 1V IMPRESSION: No acute cardiopulmonary process.
--- NOTE | ~2023-10-15 | MR_ITS ---
EXAMINATION: MR BRAIN WITHOUT CONTRAST CLINICAL INFORMATION: Question stroke. COMPARISON: CT angiogram from 10/07/2023. TECHNIQUE: Multiplanar, multisequence imaging of the brain was performed without contrast. FINDINGS: No diffusion abnormalities are identified to suggest an acute infarct. The ventricles are normal in size. No mass effect or midline shift is seen. [id number] chronic small vessel ischemic changes are present in the cerebral white matter and brainstem. No extra-axial fluid collections are seen. The cerebellum is normal. There is an incidental 5 mm round T2 hyperintense lesion in the left lateral aspect of the anterior pituitary lobe within the sella. The gradient refocused acquisition demonstrates no pathologic magnetic susceptibility artifact to indicate underlying acute or chronic blood products. The craniovertebral junction, marrow signal, and midline structures are normal. The major intracranial flow voids at the level of the [place] of [place] are preserved. The dural venous sinus flow voids are maintained. There is a mild amount of fluid in the dependent right mastoid air cells. The left mastoid air cells are clear. MR/MR head/brain wo con IMPRESSION: No acute intracranial process. [id number] chronic white matter microangiopathy with generalized brain parenchymal volume loss. 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
--- NOTE | ~2023-10-15 | CT_ITS ---
EXAMINATION: CTA OF THE HEAD AND NECK CLINICAL INFORMATION: Left-sided hemiparesis. COMPARISON: Head CTA from 08/15/2020. CT head from 04/20/2022. TECHNIQUE: Test bolus sequences followed by intravenous administration 70 mL of Omnipaque 350. Helical imaging was performed in the axial plane from the mediastinum to the skull vertex. Delayed postcontrast imaging of the head was also performed. The data was processed at the optometric technologist's workstation for generation of MIP sequences. Three-dimensional volume rendered reformatted images were also generated at an offline 3-D workstation. Stenoses are assessed in accordance with NASCET criteria unless otherwise indicated. This CT examination was performed using dose optimization techniques as appropriate, variously including the following: *Automated exposure control *Adjustment of mA and/or kV according to patient size (this includes techniques or standardized protocols for targeted exams where dose is matched to indication/reason for exam; i.e. extremities or head) *Use of iterative reconstruction technique DLP: 1330 mGy-cm. FINDINGS: CT head: There is no evidence of acute intracranial hemorrhage or territorial infarction. There is no loss of barnard to white matter differentiation. No abnormal mass effect or midline shift is seen. No extra-axial fluid collections are identified. Paramedian low-density changes in the dionne are more conspicuous compared to prior imaging. There is no abnormal enhancement. The ventricles are normal in size. Scattered chronic white matter microangiopathic changes again noted. The osseous structures and soft tissues are normal. The mastoid air cells and visualized portions of the paranasal sinuses are well aerated. CTA neck: The imaged aortic arch and origins of the great vessels are normal. The common carotid arteries are widely patent. Atherosclerotic wall calcifications present at the carotid bifurcations with mild luminal irregularity at the origin of the left ICA. Otherwise, the cervical internal carotid arteries are widely patent. The vertebral arteries opacify normally and are of normal caliber. There is a 1.5 cm heterogeneous nodule in the left thyroid lobe. Moderate mid to lower cervical spondylosis noted with multilevel hypertrophic facet arthropathy and foraminal narrowing, particularly on the right side at the C4-C5 level, on the left side at C5-C6, and bilaterally at the C6-C7 level. Mild leftward curvature of the cervical spine also evident. The imaged portions of the lungs are clear with mild emphysematous changes. CTA head: The intradural vertebral arteries and basilar artery are normal. The posterior cerebral arteries are widely patent. The internal carotid arteries are of normal caliber with mild atherosclerotic wall calcifications. The JEREMIAH and MCA vascular complexes bilaterally are normal. The venous sinuses opacify normally. CT/CT angio head neck IMPRESSION: No hemodynamically significant stenosis or occlusion in the cervical or intracranial vasculature at the level of the n[place] of [place]. Mild scattered atherosclerotic wall calcifications in the carotid vasculature. No acute territorial infarction or abnormal enhancement. Scattered chronic white matter microangiopathic changes. Nonspecific low-density changes in the dionne which are more conspicuous compared to prior imaging. The possibility of a focal acute ischemic process cannot be ruled out on the basis of this study. Stable 1.5 cm heterogeneous nodule in the left thyroid lobe when compared to CT imaging from 08/15/2020. No further imaging follow-up is otherwise indicated based on stability. Imaging findings reported to Dr. Jimenez at 8:48 AM on 10/16/2023.
[2023-10-15 18:41] VITALS: BP 202/93; PULSE 68; RESP 18; TEMP 37.2; O2SAT 99; BMI 28.7
--- NOTE | 2023-10-15 18:51 | ED_ITS ---
HPI - Neuro Symptoms/Deficit General Chief Complaint: Neuro Symptoms/Deficit Stated Complaint: Left side numbness, pcp advised pt to come to ED Time Seen by Provider: 10/16/23 00:43 Related Data Home Medications Medication Instructions Recorded Confirmed gabapentin 300 mg capsule 300 mg PO BID 09/21/20 12/07/22 nitroglycerin 0.4 mg sublingual 0.4 mg sublingual DIRECTED 06/19/21 12/07/22 tablet diclofenac sodium 1 % topical gel 2 g topical BID 07/13/21 12/07/22 gabapentin 100 mg capsule 100 mg PO BEDTIME 07/13/21 12/07/22 latanoprost 0.005 % eye drops 1 drp ophthalmic (eye) BEDTIME 05/14/22 12/07/22 loratadine 10 mg tablet 10 mg PO BEDTIME 05/14/22 12/07/22 potassium chloride 10 mEq 10 meq PO BID 05/14/22 12/07/22 tablet,extended release(part/cryst) rosuvastatin 40 mg tablet 40 mg PO DAILY 05/14/22 12/07/22 calcium carbonate 200 mg calcium 500 mg PO TID 06/27/22 12/07/22 (500 mg) chewable tablet (Antacid (calcium carbonate)) cholecalciferol (vitamin D3) 25 25 mcg PO DAILY 06/27/22 12/07/22 mcg (1,000 unit) capsule cholestyramine (with sugar) 4 gram g PO 06/27/22 12/07/22 oral powder Previous Rx's Medication Instructions Recorded amlodipine 5 mg tablet 5 mg PO DAILY #30 tabs 07/15/21 cyclobenzaprine 5 mg tablet 5 mg PO TID Muscular skeletal pain 04/20/22 #10 tabs hydrocortisone acetate 25 mg 25 mg [place] BID #12 ea 07/21/23 rectal suppository (Anusol-HC) Allergies Allergy/AdvReac Type Severity Reaction Status Date / Time latex Allergy Rash Verified 07/21/23 16:14 Latex Gloves Allergy Unknown rash Uncoded 07/21/23 16:14 Anjali spice Allergy Unknown Rash Uncoded 07/21/23 16:14 [facility] Past Medical History Medical History Dark stools Pulmonary embolism Chest discomfort Abnormal EKG PAC (premature atrial contraction) Renal cyst Gastritis DVT (deep venous thrombosis) Anemia HTN (hypertension) GERD (gastroesophageal reflux disease) Surgical History History of laparoscopic cholecystectomy History of colon resection Family History Family History Father No problems noted. Mother No problems noted. Social History Social History Household Members: Family Housing: House Do you presently have visiting nurse or other home services: No Alcohol intake: never Patient Tobacco Use Status: Never used Tobacco Advance Directives: No Advance Directives Information Provided: No Advance Directives Date on File: 07/13/21 service: No Current occupational status: retired Physical Exam 2 Vital Signs: Vital Signs: Last Vital Signs Temp 98.9 F 10/15/23 18:41 Pulse 68 10/15/23 18:41 Resp 18 10/15/23 18:41 BP 202/93 H 10/15/23 18:41 Pulse Ox 99 10/15/23 18:41 O2 Del Method Room Air 10/15/23 18:41 BMI result Body Mass Index 28.7 Course Course Course Narrative: RME: 83 yold female presents to the ED for left sided facial/arm/leg numbness for the past 3 weeks. Patient states chest palpitatios and pain for the past three weeks. patietn states no slurred speech, facial droop, or paralysis. NIH score 0. patient is hypertensive. TOok his meds. Labs, EKG, and head CT scan ordered. Medical Decision Making Lab Data 10/15/23 21:21 10/15/23 21:21 Labs: Lab Results 10/15/23 Range/Units 21:21 WBC 12.0 H (4.8-10.8) X10*3/uL RBC 4.64 (4.20-5.50) X10*6/uL Hgb 13.9 (12.0-16.0) g/dl Hct 41.8 (37.0-47.0) % MCV 90.1 (80.0-98.0) fL MCH 30.0 (27.0-33.0) pg MCHC 33.3 (31.0-35.0) g/dl RDW 11.9 (11.0-16.0) % Plt Count 205 (160-400) X10*3/uL MPV 9.9 (9.4-12.3) fL Immature Gran % (Auto) 0.3 (0.0-0.4) % Neut % (Auto) 62.0 (45-73) % Lymph % (Auto) 28.9 (20-40) % [place] % (Auto) 8.2 (2-11) % Eos % (Auto) 0.2 (0-4) % Baso % (Auto) 0.4 (0-2) % Lymph # (Auto) 3.5 (1.2-4.9) X10*3/uL [place] # (Auto) 1.0 (0.1-1.2) X10*3/uL Eos # (Auto) 0.0 (0.0-0.4) X10*3/uL Baso # (Auto) 0.1 (0.0-0.2) X10*3/uL Abs Immat Gran (auto) 0.03 (0.00-0.03) X10*3/uL Absolute Neuts (auto) 7.5 (2.0-8.3) x10*3/uL Absolute Nucleated RBC 0.000 (0.0-0.012) X10*3/uL Nucleated RBC % (auto) 0.0 (0.0-0.2) /100WBC Sodium 138 (135-145) mmol/L Potassium 4.2 (3.3-5.1) mmol/L Chloride 106 (96-108) mmol/L Carbon Dioxide 20 L (22-29) mmol/L Anion Gap 16 (12-20) BUN 16 (9-16) mg/dL Creatinine 0.87 (0.5-1.4) mg/dL Estim Creat Clear Calc 37.1 Estimated GFR > 60 Random Glucose 99 (60-115) mg/dL Calcium 10.0 (8.4-10.2) mg/dL Magnesium 1.9 (1.6-2.6) mg/dL Total Bilirubin 0.3 (0.0-1.0) mg/dL AST 18 (5-31) U/L ALT 14 (0-31) U/L Alkaline Phosphatase 72 (39-117) U/L Troponin I High Sens 9.4 (<3.5-17.0) ng/L Total Protein 7.4 (6.5-8.0) g/dL Albumin 4.4 (3.5-5.0) g/dL Discharge Plan Discharge Clinical Impression: Paresthesia Patient Disposition: Admitted As Inpatient
--- NOTE | 2023-10-15 18:55 | ECG_ITS ---
Test Reason : CHEST PAIN Blood Pressure : / mmHG Vent. Rate : 061 BPM Atrial Rate : 061 BPM P-R Int : 152 ms QRS Dur : 072 ms QT Int : 416 ms P-R-T Axes : 046 031 085 degrees QTc Int : 418 ms Normal sinus rhythm Minimal voltage criteria for LVH, may be normal variant ( Sokolow-Soriano ) Borderline ECG When compared with ECG of 20-APR-2022 12:48, No significant change was found Referred By: Shiva Laughlin Electronically Signed By:JAVIER ROMANO MD
[2023-10-15 21:26] LABS: MANUAL DIFF FLAG NO
[2023-10-15 21:27] LABS: Basophils Absolute Auto 0.1 X10*3/uL (0.0-0.2); Basophils Percent Auto 0.4 % (0-2); Eosinophils Percent Auto 0.2 % (0-4); Hematocrit 41.8 % (37.0-47.0); Hemoglobin 13.9 g/dl (12.0-16.0); Imm Gran Abs Auto 0.03 X10*3/uL (0.00-0.03); Imm Gran Pct Auto 0.3 % (0.0-0.4); Lymphocytes Absolute Auto 3.5 X10*3/uL (1.2-4.9); Lymphocytes Percent Auto 28.9 % (20-40); Mean Corpuscular HGB Conc 33.3 g/dl (31.0-35.0); Mean Corpuscular Volume 90.1 fL (80.0-98.0); Mean Platelet Volume 9.9 fL (9.4-12.3); Monocytes Percent Auto 8.2 % (2-11); Neutrophils Absolute Auto 7.5 x10*3/uL (2.0-8.3); Platelet Count 205 X10*3/uL (160-400); Red Blood Count 4.64 X10*6/uL (4.20-5.50); Red Cell Distribution Width 11.9 % (11.0-16.0)
[2023-10-15 21:44] LABS: Alanine Aminotransferase 14 U/L (0-31); Albumin Level 4.4 g/dL (3.5-5.0); Alkaline Phosphatase 72 U/L (39-117); Anion Gap 16 (12-20); Aspartate Amino Transferase 18 U/L (5-31); Bilirubin Total 0.3 mg/dL (0.0-1.0); Blood Urea Nitrogen 16 mg/dL (9-16); Carbon Dioxide 20 mmol/L (22-29); Chloride 106 mmol/L (96-108); Creatinine Clr Calc Pharmacy 37.1; Estimated Glomerular Filt Rate > 60; Glucose Random 99 mg/dL (60-115); Magnesium 1.9 mg/dL (1.6-2.6); Potassium 4.2 mmol/L (3.3-5.1); Sodium 138 mmol/L (135-145); Total Protein 7.4 g/dL (6.5-8.0)
[2023-10-15 21:51] LABS: Troponin-I High Sensitivity 9.4 ng/L (<3.5-17.0)
[2023-10-16] VITALS (10 sets, daily range): BP systolic 138–212; BP diastolic 56–95; PULSE 62–77; RESP 16–19; TEMP 36.1–36.8; O2SAT 96–100
--- NOTE | 2023-10-16 00:54 | ED_ITS ---
HPI - Neuro Symptoms/Deficit General Chief Complaint: Neuro Symptoms/Deficit Stated Complaint: Left side numbness, pcp advised pt to come to ED Time Seen by Provider: 10/16/23 00:43 Source: patient Mode of arrival: ambulatory Limitations: no limitations History of Present Illness HPI Narrative: 83-year-old female who was sent by PCP for evaluation of left-sided body numbness. 83-year-old female with history of hypertension controlled with amlodipine, history of hyperlipidemia, hypomagnesemia started to have left facial numbness about week ago then gradually spread it to the whole entire left side, patient declined speech problem, patient has left leg weakness for months and declined any new weakness that started with a numbness. Patient is poor historian provided limited history during the interview, noticed to have high blood pressure in the emergency department patient confirmed being compliant with her blood pressure medication. Related Data Home Medications Medication Instructions Recorded Confirmed gabapentin 300 mg capsule 300 mg PO BID 09/21/20 12/07/22 nitroglycerin 0.4 mg sublingual 0.4 mg sublingual DIRECTED 06/19/21 12/07/22 tablet diclofenac sodium 1 % topical gel 2 g topical BID 07/13/21 12/07/22 gabapentin 100 mg capsule 100 mg PO BEDTIME 07/13/21 12/07/22 latanoprost 0.005 % eye drops 1 drp ophthalmic (eye) BEDTIME 05/14/22 12/07/22 loratadine 10 mg tablet 10 mg PO BEDTIME 05/14/22 12/07/22 potassium chloride 10 mEq 10 meq PO BID 05/14/22 12/07/22 tablet,extended release(part/cryst) rosuvastatin 40 mg tablet 40 mg PO DAILY 05/14/22 12/07/22 calcium carbonate 200 mg calcium 500 mg PO TID 06/27/22 12/07/22 (500 mg) chewable tablet (Antacid (calcium carbonate)) cholecalciferol (vitamin D3) 25 25 mcg PO DAILY 06/27/22 12/07/22 mcg (1,000 unit) capsule cholestyramine (with sugar) 4 gram g PO 06/27/22 12/07/22 oral powder Previous Rx's Medication Instructions Recorded amlodipine 5 mg tablet 5 mg PO DAILY #30 tabs 07/15/21 cyclobenzaprine 5 mg tablet 5 mg PO TID Muscular skeletal pain 04/20/22 #10 tabs hydrocortisone acetate 25 mg 25 mg DC BID #12 ea 07/21/23 rectal suppository (Anusol-HC) Allergies Allergy/AdvReac Type Severity Reaction Status Date / Time latex Allergy Rash Verified 07/21/23 16:14 Latex Gloves Allergy Unknown rash Uncoded 07/21/23 16:14 Anjali spice Allergy Unknown Rash Uncoded 07/21/23 16:14 Review of Systems 2 Review of Systems: All other systems are reviewed and are negative Constitutional: Reports as per HPI and Reports no additional constitutional complaints Eyes: Reports as per HPI and Reports no additional eye complaints Reports system reviewed and no additional complaints, except as documented Cardiovascular: Reports as per HPI and Reports no additional cardiovascular complaints Respiratory: Reports as per HPI and Reports no additional respiratory complaints Gastrointestinal: Reports as per HPI and Reports no additional gastrointestinal complaints Genitourinary: Reports no additional female genitourinary complaints Musculoskeletal: Reports no additional musculoskeletal complaints Skin/Breast: Reports system reviewed and no additional complaints, except as docu Psychiatric: Reports no additional psychiatric complaints Endocrine: Reports no additional endocrine complaints Hematologic/Lymphatic: Reports no additional hematologic/lymphatic complaints Allergic/Immunologic: Reports no additional allergic/immunologic complaints Reports system reviewed and no additional complaints, except as documented and Reports Abnormal speech present [facility] Past Medical History Medical History Dark stools Pulmonary embolism Chest discomfort Abnormal EKG PAC (premature atrial contraction) Renal cyst Gastritis DVT (deep venous thrombosis) Anemia HTN (hypertension) GERD (gastroesophageal reflux disease) Surgical History History of laparoscopic cholecystectomy History of colon resection Family History Family History Father No problems noted. Mother No problems noted. Social History Social History Household Members: Family Housing: House Do you presently have visiting nurse or other home services: No Alcohol intake: never Patient Tobacco Use Status: Never used Tobacco Advance Directives: No Advance Directives Information Provided: No Advance Directives Date on File: 07/13/21 service: No Current occupational status: retired Physical Exam 2 Vital Signs: Vital Signs: Last Vital Signs Temp 98.9 F 10/15/23 18:41 Pulse 68 10/15/23 18:41 Resp 18 10/15/23 18:41 BP 202/93 H 10/15/23 18:41 Pulse Ox 99 10/15/23 18:41 O2 Del Method Room Air 10/15/23 18:41 BMI result Body Mass Index 28.7 Vital signs have been reviewed and appear to be correct. Blood pressure elevated. Heart rate normal. Respiratory rate normal. Temperature normal. Oxygen saturation normal. Appearance: Alert. Oriented X3. No acute distress. Head: Normal external exam. Normocephalic. Atraumatic. No Carlisle signs noted. No raccoon eyes noted Eyes: PERRLA. EOMI. Conjunctiva and sclera normal. Eyelids normal. ENT: TM's Normal. Pharynx normal. Uvula midline. Moist mucous membranes. No trismus noted. No drooling noted. No muffled voice noted. Neck: Normal inspection. Neck supple. FROM. No adenopathy. Thyroid Normal. No meningeal signs. No neck mass noted. CVS: Normal heart rate and rhythm. Heart sound normal. No murmurs noted. Pulses normal throughout. Respiratory: No respiratory distress. Painless inspiration. Breath sounds normal. No wheezes/rales/rhonchi noted. Chest nontender. No accessory muscle usage noted or decreased air movement noted. Abdomen: Soft and nontender. Bowel sounds normal in all 4 quadrants. No distention noted. No organomegaly noted. No visible injury noted. Back: No CVA tenderness. Full range of motion noted. Skin: Skin warm and dry. Normal skin color. Normal skin turgor. No rashes/lesions/lacerations noted. Extremities: No lower extremity edema. Extremities exhibit normal range of motion. Extremities nontender. Neuro: Oriented X 3. Cranial nerve exam: II-XII are grossly intact No motor deficit. No sensory deficit. Reflexes normal. Course Reevaluation(s) Reevaluation #1: 83-year-old female with history of hypertension presented with few days of left body numbness was no motor deficit. Admit to the medical floor for further neurological evaluation, administer aspirin and amlodipine in the ED. Patient is not a candidate for thrombolytic therapy. Time: 01:05 Medical Decision Making Differential Diagnosis Differential Diagnoses: The differential diagnosis associated with the presentation includes (Hypertensive emergency, ischemic stroke, hemorrhagic stroke, electrolyte derangement, severe anemia, pneumonia, pneumothorax.) Admission/Observation Consideration of admission/observation: Escalation of care including admission/observation considered Consult Healthcare Provider Management of the patient was discussed with: Hospitalist (Dr. Sanford) Lab Data MDM Lab Attestation statement: I reviewed the patient's lab results. 10/15/23 21:21 10/15/23 21:21 Labs: Lab Results 10/15/23 Range/Units 21:21 WBC 12.0 H (4.8-10.8) X10*3/uL RBC 4.64 (4.20-5.50) X10*6/uL Hgb 13.9 (12.0-16.0) g/dl Hct 41.8 (37.0-47.0) % MCV 90.1 (80.0-98.0) fL MCH 30.0 (27.0-33.0) pg MCHC 33.3 (31.0-35.0) g/dl RDW 11.9 (11.0-16.0) % Plt Count 205 (160-400) X10*3/uL MPV 9.9 (9.4-12.3) fL Immature Gran % (Auto) 0.3 (0.0-0.4) % Neut % (Auto) 62.0 (45-73) % Lymph % (Auto) 28.9 (20-40) % [place] % (Auto) 8.2 (2-11) % Eos % (Auto) 0.2 (0-4) % Baso % (Auto) 0.4 (0-2) % Lymph # (Auto) 3.5 (1.2-4.9) X10*3/uL [place] # (Auto) 1.0 (0.1-1.2) X10*3/uL Eos # (Auto) 0.0 (0.0-0.4) X10*3/uL Baso # (Auto) 0.1 (0.0-0.2) X10*3/uL Abs Immat Gran (auto) 0.03 (0.00-0.03) X10*3/uL Absolute Neuts (auto) 7.5 (2.0-8.3) x10*3/uL Absolute Nucleated RBC 0.000 (0.0-0.012) X10*3/uL Nucleated RBC % (auto) 0.0 (0.0-0.2) /100WBC Sodium 138 (135-145) mmol/L Potassium 4.2 (3.3-5.1) mmol/L Chloride 106 (96-108) mmol/L Carbon Dioxide 20 L (22-29) mmol/L Anion Gap 16 (12-20) BUN 16 (9-16) mg/dL Creatinine 0.87 (0.5-1.4) mg/dL Estim Creat Clear Calc 37.1 Estimated GFR > 60 Random Glucose 99 (60-115) mg/dL Calcium 10.0 (8.4-10.2) mg/dL Magnesium 1.9 (1.6-2.6) mg/dL Total Bilirubin 0.3 (0.0-1.0) mg/dL AST 18 (5-31) U/L ALT 14 (0-31) U/L Alkaline Phosphatase 72 (39-117) U/L Troponin I High Sens 9.4 (<3.5-17.0) ng/L Total Protein 7.4 (6.5-8.0) g/dL Albumin 4.4 (3.5-5.0) g/dL Independent Interpretation I performed an independent interpretation of an: EKG (Normal sinus rhythm at 61 beats per minute with LVH, normal intervals, no ST-T changes, no change from previous EKG.), Plain X-Ray (Chest: No acute intrathoracic pathology.) and CT Scan (Head: No acute intracranial pathology.) Radiology Impression Discussion of test interpretation with radiology: I have reviewed the radiologist's reading. Chronic Conditions Patient?s care impacted by: Hypertension NIH Stroke Scale Time: 01:04 Level of Consciousness: Alert Level of Consciousness Questions: Answers both questions correctly Level of Consciousness Commands: Performs both tasks correctly Best Gaze: Normal Visual: No visual loss Facial Palsy: Normal Motor Arm (Right): No drift Motor Arm (Left): No drift Motor Leg (Right): No drift Motor Leg (Left): No drift Limb Ataxia: Absent Sensory: Mild to moderate sensory loss Best Language: No aphasia Dysarthia: Normal Extinction and Inattention: No abnormality Score: 1 Discharge Plan Discharge Clinical Impression: Paresthesia Patient Disposition: Admitted As Inpatient
[2023-10-16] MEDS: Aspirin 81 MG TAB.CHEW PO (01:21)
[2023-10-16] MEDS: amLODIPine Besylate 5 MG TABLET PO ×2 (01:25→08:06)
[2023-10-16 01:56] LABS: Prothrombin Time 11.9 SEC (11.1-13.3)
[2023-10-16 01:59] LABS: Partial Thromboplastin Time 28.2 SEC (26.0-36.8)
--- NOTE | 2023-10-16 02:01 | MHC.EDTECH ---
This tech took over c are of patient at this time, hourly rounds and vitals completed,BP elevated 173/78 Choco RN aware. Belonging list completed and copy placed in chart, patient is resting comfortably at this time and call brenner in reach
[2023-10-16] MEDS: Metoprolol Tartrate 25 MG TABLET PO ×2 (03:24→22:05)
[2023-10-16 05:16] LABS: MANUAL DIFF FLAG NO
[2023-10-16 05:19] LABS: Basophils Percent Auto 0.4 % (0-2); Eosinophils Percent Auto 0.4 % (0-4); Hematocrit 38.3 % (37.0-47.0); Hemoglobin 12.9 g/dl (12.0-16.0); Imm Gran Abs Auto 0.03 X10*3/uL (0.00-0.03); Imm Gran Pct Auto 0.3 % (0.0-0.4); Lymphocytes Absolute Auto 3.2 X10*3/uL (1.2-4.9); Lymphocytes Percent Auto 28.3 % (20-40); Mean Corpuscular HGB Conc 33.7 g/dl (31.0-35.0); Mean Corpuscular Hemoglobin 30.1 pg (27.0-33.0); Mean Corpuscular Volume 89.5 fL (80.0-98.0); Mean Platelet Volume 9.7 fL (9.4-12.3); Monocytes Percent Auto 8.8 % (2-11); Neutrophils Absolute Auto 6.9 x10*3/uL (2.0-8.3); Neutrophils Percent Auto 61.8 % (45-73); Platelet Count 224 X10*3/uL (160-400); Red Blood Count 4.28 X10*6/uL (4.20-5.50); Red Cell Distribution Width 11.9 % (11.0-16.0); White Blood Count 11.1 X10*3/uL (4.8-10.8)
--- NOTE | 2023-10-16 05:37 | PM.IMHP ---
History of Present Illness Date of Service: 10/16/23 Attending physician on admission: Christiane Kauffman Chief Complaint: Left-sided weakness Prema Carpenter is a 83 years old woman with past medical history significant for hyperlipidemia and hypertension since to the emergency department complaining of persistent left-sided weakness and decreased sensation over the last 3 weeks. She also reports numbness in the left side of her face including the forehead. She denied any event of headache, nausea, vomiting, visual difficulties, loss of consciousness, speech difficulty or facial droop. She stated that she has walking difficulty as she has been dragging her left leg. She denies history of strokes. No cardiopulmonary or gastrointestinal symptoms reported. No fever or chills. Patient denies history of arrhythmias or stroke. However, commented that in occasions she experiences events of palpitations the are self-limited. She does not take aspirin daily. In the ED, she was initially found to have a blood pressure of 212/95. The most recent is 176/78. Blood workup is remarkable for mild leukocytosis of 12.0. There are no significant electrolyte imbalances and renal function is normal. LFTs are normal. CXR is negative. Head CT scan without contrast showed no acute intracranial abnormalities. ECG normal sinus rhythm, LVH changes no acute ischemic changes. ED tx: Aspirin 81 mg, amlodipine 5 mg. Review of Systems Review of Systems: All 12 systems were reviewed and normal except as noted in HPI. Neurologic: Reports Sensory deficit (Neuro) (left arm and leg) [facility] Medical History Dark stools Pulmonary embolism Chest discomfort Abnormal EKG PAC (premature atrial contraction) Renal cyst Gastritis DVT (deep venous thrombosis) Anemia HTN (hypertension) GERD (gastroesophageal reflux disease) Family History Father No problems noted. Mother No problems noted. Surgical History History of laparoscopic cholecystectomy History of colon resection Social History Household Members: Family Housing: House Do you presently have visiting nurse or other home services: No Alcohol intake: never Patient Tobacco Use Status: Never used Tobacco Smoked in Last 30 Days: No Use of substances other than those prescribed or required for medical reasons: No Advance Directives: No Advance Directives Information Provided: No Advance Directives Date on File: 07/13/21 Nutrition Risks: No Nutritional Risk service: No Current occupational status: retired Meds Allergies Allergy/AdvReac Type Severity Reaction Status Date / Time latex Allergy Rash Verified 07/21/23 16:14 Latex Gloves Allergy Unknown rash Uncoded 07/21/23 16:14 Anjali spice Allergy Unknown Rash Uncoded 07/21/23 16:14 Active Medications: Current Medications Acetaminophen (Acetaminophen 325 Mg Tablet) 650 mg PO Q6H PRN PRN Reason: Pain, Mild (Pain Scale 1-3) Amlodipine Besylate (Amlodipine Besylate 5 Mg Tablet) 5 mg PO DAILY [facility]; Protocol Atorvastatin Calcium (Atorvastatin Calcium 80 Mg Tablet) 80 mg PO DAILY [facility] Gabapentin (Gabapentin 100 Mg Capsule) 100 mg PO BEDTIME [facility] Gabapentin (Gabapentin 300 Mg Capsule) 300 mg PO BID [facility] Heparin Sodium (Porcine) (Heparin Sodium,Porcine 5,000 Unit/Ml Vial) 5,000 unit SUBCUT Q8H [facility] Metoprolol Tartrate (Metoprolol Tartrate 25 Mg Tablet) 25 mg PO BID [facility]; Protocol Last Admin: 10/16/23 03:24 Dose: 25 mg Sodium Chloride (0.9 % Sodium Chloride Flush 3 Ml Syringe) 3 ml IVFLUSH QSHIFT [facility] Timolol Maleate (Timolol Maleate Xe 0.5 % Gel 5 Ml Drbtl) 1 drop EYE-BOTH DAILY [facility] Home Medications Medication Instructions Recorded Confirmed Last Taken Type gabapentin 300 mg capsule 300 mg PO BID 09/21/20 10/16/23 06/18/21 History nitroglycerin 0.4 mg sublingual 0.4 mg sublingual DIRECTED 06/19/21 12/07/22 Unknown History tablet diclofenac sodium 1 % topical gel 2 g topical BID 07/13/21 12/07/22 Unknown History gabapentin 100 mg capsule 100 mg PO BEDTIME 07/13/21 10/16/23 Unknown History latanoprost 0.005 % eye drops 1 drp ophthalmic (eye) BEDTIME 05/14/22 12/07/22 Unknown History loratadine 10 mg tablet 10 mg PO BEDTIME 05/14/22 12/07/22 Unknown History potassium chloride 10 mEq 10 meq PO BID 05/14/22 12/07/22 Unknown History tablet,extended release(part/cryst) rosuvastatin 40 mg tablet 40 mg PO DAILY 05/14/22 12/07/22 Unknown History calcium carbonate 200 mg calcium 500 mg PO TID 06/27/22 12/07/22 Unknown History (500 mg) chewable tablet (Antacid (calcium carbonate)) cholecalciferol (vitamin D3) 25 25 mcg PO DAILY 06/27/22 12/07/22 Unknown History mcg (1,000 unit) capsule cholestyramine (with sugar) 4 gram g PO 06/27/22 12/07/22 Unknown History oral powder acetaminophen 650 mg 650 mg PO Q8H PRN pain 10/16/23 10/16/23 Unknown History tablet,extended release latanoprost 0.005 % eye drops 1 drp ophthalmic (eye) BEDTIME 10/16/23 10/16/23 Unknown History potassium chloride 10 mEq 10 meq PO BID 10/16/23 10/16/23 Unknown History tablet,extended release(part/cryst) (Klor-Con M) rosuvastatin 40 mg tablet 40 mg PO DAILY 10/16/23 10/16/23 Unknown History timolol maleate 0.5 % eye gel 1 drp ophthalmic (eye) QAM 10/16/23 10/16/23 Unknown History forming solution Physical Exam Vital Signs and Narrative: Vital Signs: Last Vital Signs Temp 98.2 F 10/16/23 03:44 Pulse 64 10/16/23 03:44 Resp 16 10/16/23 03:44 BP 176/78 H 10/16/23 03:44 Pulse Ox 97 10/16/23 03:44 O2 Del Method Room Air 10/16/23 03:44 BMI result Body Mass Index 28.7 Const: General: cooperative, healthy appearing, comfortable, no acute distress, well developed, alert, awake and Physically active Orientation/consciousness: patient oriented x3 HEENT: Head: Yes normal to inspection, Yes normocephalic and Yes atraumatic Ears: hearing grossly normal bilaterally Face and sinus: Yes normal facial exam and Yes face symmetric Mouth: Normal oral and palatal mucosa present Eyes: General: appearance normal, both eyes and all related structures Corneas: corneas normal Pupils: Equal, round and reactive pupils present Direct Ophthalmoscopy: normal light reflex and no photophobia Chest: Chest palpation & inspection: normal inspection of the chest Resp: Effort & Inspection: normal respiratory effort and able to speak in complete sentences Auscultation: clear to auscultation bilaterally Cardio: Rate: regular rate Rhythm: regular rhythm Heart sounds: no murmurs GI: Inspection: Yes normal to inspection Palpation (GI): Soft to palpation Percussion: Yes normal to percussion Auscultation: normal bowel sounds Rectal Exam - Female: deferred : General: Yes deferred Skin: General skin exam: no rashes or lesions noted Lesions: no lesions Rashes: no rashes Neuro: General: patient oriented x3 and Unable to assess gait Cranial nerves: Yes Equal, round and reactive pupils present, Yes Bilaterally intact EOM present, Yes Nystagmus not present, Yes Normal facial strength present, Yes Normal gag reflex present, Yes Symmetric palate elevation present, Yes Ability to bilaterally rotate head present, Yes Ability to bilaterally elevate shoulders present and Yes Other cranial nerve findings present (left facial sensation (forehead, cheeck and mandibular) decreased ) Cognition (Neuro): normal cognition Gait exam (Neuro): Unable to assess gait Motor exam (neuro): Pronator motor function not present Sensory Exam: Sensory deficit (Neuro) (left arm and leg) Coordination: [id number] test normal Extrem: General: Yes normal to inspection, Yes full ROM, Yes capillary refill normal and Yes no clubbing, cyanosis or edema Right upper extremity: full ROM Left upper extremity: full ROM Psych: Appearance: grossly normal Mental Status: mental status grossly normal Speech and movement: Normal speech and movement present Affect: normal affect Attitude: cooperative Thought process: Normal thought process present Thought content: Normal thought content present Insight: Good insight present (Psych) Judgement: Good judgement present (Psych) Results Labs 10/16/23 05:03 10/15/23 21:21 Labs: Laboratory Results - last 24 hr 10/15/23 10/16/23 10/16/23 21:21 01:42 05:03 MCV 90.1 89.5 MCH 30.0 30.1 MCHC 33.3 33.7 RDW 11.9 11.9 Plt Count 205 224 MPV 9.9 9.7 Immature Gran % (Auto) 0.3 0.3 Neut % (Auto) 62.0 61.8 Lymph % (Auto) 28.9 28.3 [place] % (Auto) 8.2 8.8 Eos % (Auto) 0.2 0.4 Baso % (Auto) 0.4 0.4 Lymph # (Auto) 3.5 3.2 [place] # (Auto) 1.0 1.0 Eos # (Auto) 0.0 0.0 Baso # (Auto) 0.1 0.0 Abs Immat Gran (auto) 0.03 0.03 Absolute Neuts (auto) 7.5 6.9 Absolute Nucleated RBC 0.000 0.000 Nucleated RBC % (auto) 0.0 0.0 PT 11.9 INR 1.0 APTT 28.2 Anion Gap 16 Estim Creat Clear Calc 37.1 Estimated GFR > 60 Random Glucose 99 Calcium 10.0 Magnesium 1.9 Total Bilirubin 0.3 AST 18 ALT 14 Alkaline Phosphatase 72 Troponin I High Sens 9.4 Total Protein 7.4 Albumin 4.4 Imaging Radiologist's Impressions: Impressions Head CT 10/15/23 19:46 IMPRESSION: 1. No acute intracranial abnormalities. 2. Mild chronic microangiopathic ischemic changes. Chest X-Ray 10/16/23 01:15 IMPRESSION: No acute cardiopulmonary process. Assessment and Plan (1) Left-sided weakness: Status: Acute (2) HTN (hypertension): Qualifiers: Hypertension type: primary hypertension Qualified Code(s): I10 - Essential (primary) hypertension Status: Acute (3) Hyperlipidemia: Qualifiers: Hyperlipidemia type: unspecified Qualified Code(s): E78.5 - Hyperlipidemia, unspecified Status: Acute Plan Prema Carpenter is a 83 years old woman presents with: Left-sided weakness and numbness, likely secondary to CVA. Admit to hospitalist service. Telemetry. No tPA given -out of window (pt symptoms started 3 weeks ago). Neuro checks. Continue treatment with aspirin and statin. Check hemoglobin A1c. Check head/neck CTA, brain MRI and TTE w/ bubble study. Neurology consult for further recommendations. PT and OT evaluation and treatment. Uncontrolled hypertension. Continue amlodipine. Add metoprolol. Continue to monitor blood pressure. Hyperlipidemia. Continue statin. Check lipid panel. DVT prophylaxis: Heparin subQ Code status: Full Quality Stroke Does the patient have a stroke diagnosis?: Yes Reason for No Anti-thrombotic by Day Two: N/A - Med Ordered VTE Prior VTE?: Yes VTE Risk Level:: Medical - moderate - high VTE Device Contraindication: N/A - Device Ordered VTE Drug Contraindication: N/A - Med Ordered
[2023-10-16 05:39] LABS: Appearance Urine Clear; Color Urine Yellow; Glucose Urine UA Negative (Negative); Leukocyte Esterase Urine Negative (Negative); Nitrite Urine Negative (Negative); PH 5.5 (5.0-9.0); Urine Blood Negative (Negative); Urine Ketones Negative (Negative); Urine Protein Negative (Neg-Trace)
[2023-10-16 05:40] LABS: Alanine Aminotransferase 13 U/L (0-31); Alkaline Phosphatase 68 U/L (39-117); Anion Gap 15 (12-20); Aspartate Amino Transferase 16 U/L (5-31); Blood Urea Nitrogen 15 mg/dL (9-16); Calcium 9.5 mg/dL (8.4-10.2); Carbon Dioxide 22 mmol/L (22-29); Chloride 106 mmol/L (96-108); Creatinine Clr Calc Pharmacy 41.4; Estimated Glomerular Filt Rate > 60; Glucose Random 99 mg/dL (60-115); Potassium 3.8 mmol/L (3.3-5.1); Sodium 139 mmol/L (135-145); Total Protein 6.7 g/dL (6.5-8.0)
[2023-10-16 05:41] LABS: Bacteria Urine None Seen (None Seen); Hyaline Casts Urine 0-2 /LPF (0-2); RBC Urine 0-2 /HPF (0-2); Squamous Epithelial Cell Urine 0-2 /HPF (0-2); WBC Urine 0-5 /HPF (0-5)
[2023-10-16] MEDS: iohexoL 350 MG/ML 100 ML INFUS..BTL 70 ML IV (05:47)
[2023-10-16 05:56] LABS: Bilirubin Total 0.3 mg/dL (0.0-1.0)
--- NOTE | 2023-10-16 06:04 | MHC.EDTECH ---
Patient ambulated with a 1 assist to the bathroom with a steady gait,hourly rounds and vitals completed. Patient is resting comfortably at this time and call brenner in reach
--- NOTE | 2023-10-16 07:00 | CA_ITS ---
Transthoracic Echocardiogram Patient (Last, First, Middle): Prema Carpenter R Gender: Female Date of : 1940 Age: 83 Procedure Date: 10/16/2023 Procedure Type: Transthoracic Echocardiogram Location: [facility] – [place] Height: 144.78 cm Weight: 59.88 kg BSA: 1.51 m2 Heart Rate: bpm BP: 147 / 56 mmHg Validation Engineer: Referring MD: Christiane Kauffman MD Crucible Packer: Oscar Valiente MD Symptoms: Stroke symptoms Study Quality: Fair ECG Rhythm: Sinus Conclusions: - 1. Normal LV ejection fraction of 65-70% with mild LVH with impaired relaxation filling pattern and mild obstructive physiology at LVOT level 2. Normal cardiac valvular Dopplers 3. Normal RV systolic pressure 4. No gross pericardial effusion Findings Left Ventricle Normal left ventricular size and systolic function. There is mildly increased left ventricular wall thickness. The visually estimated ejection fraction is between 65-70%. Spectral Doppler is indicative of an impaired relaxation filling pattern. E/E prime ratio is between 8 and 15 consistent with indeterminate filling pressures. there is increased gradient across the LVOT at 20 mmHg with no dynamic component Right Ventricle Normal right ventricular cavity size and systolic function. Atria The left atrium is normal in size. There is no evidence of interatrial shunt. The right atrium is normal in size. Aortic Valve Normal aortic valve structure and function. There is no aortic valve stenosis. There is no aortic valve regurgitation. Mitral Valve There is mild anterior and posterior mitral leaflet thickening. There is mild mitral annular calcification. There is trace mitral valve regurgitation. There is no mitral valve stenosis. Pulmonic Valve The pulmonic valve is likely normal. Tricuspid Valve Normal tricuspid valve structure. There is trace tricuspid valve regurgitation. The right ventricular systolic pressure is normal. The right ventricular systolic pressure is 27 mmHg. Normal right atrial pressure. There is no evidence of pulmonary hypertension. Great Vessels The aorta was not well visualized. The pulmonary artery was not well visualized. Venous The inferior vena cava is normal in size and collapses greater than 50% with inspiration. Pericardium/Pleural There is no evidence of pericardial effusion. Prior Study Comparison No significant change compared to prior study dated: 06/05/2022. Measurements 2D Linear Measurements IVSd: 1.27 0.6-0.9/0.6-1.0 cm LVIDd: 2.92 3.9-5.3/4.2-5.9 cm LVIDd Index: 1.93 2.4-3.2/2.2-3.1 cm/m2 LVIDs: 2.01 2.0-3.6 cm LVPWd: 1.27 0.7-1.1 cm Ao Root: 3.00 2.1-3.5 cm LA Diam: 3.20 2.7-3.8/3.0-4.0 cm LAIDs Index: 2.12 1.5-2.3 cm/m2 LV Mass: 143.39 67-162/88-224 g LV Mass Index: 94.96 43-95/49-115 g/m2 LVOT Diam: 2.00 3.0+(-)1.3 cm 2D Systolic Function EF 4C: 64.10 >55% EF 2C: 69.40 >55% EF BiP: 66.90 >55% Mitral Valve MV Pk E: 0.62 MV PK A: 1.26 MV Decel Time: 317.00 E/A: 0.50 E'Lateral: 4.46 E'Medial: 3.48 E/E' Med: 17.90 E/E' Lat: 14.00 PHT: 93.00 MVA PHT: 2.37 Decel [place]: 1.97 Aortic Valve AoV Pk Elmo: 1.61 AoV Mn Elmo: 1.02 AoV VTI: 0.33 AoV Pk Grad: 10.00 Aov Mn Grad: 5.00 MARQUES Cont.VTI: 3.47 LVOT LVOT Pk Elmo: 1.42 LVOT Mn Elmo: 0.98 LVOT VTI: 0.37 LVOT Pk Grad: 8.00 LVOT Mn Grad: 5.00 LVOT Diam: 2.00 LVOT Area: 3.14 Diastolic Function MV Pk E: 0.62 MV Pk A: 1.26 E/A: 0.50 E'Medial: 3.48 E/E' Med: 17.90 E' Laterial: 4.46 E/E' Lat: 14.00 Right Ventricle TAPSE (mm): 20.00 TVS' Elmo: 10.00 Tricuspid Valve TR Pk Elmo: 2.44 TR Pk Grad: 24.00 RA Press: 3.00 RVSP: 27.00 Great Vessels Aorta Ao Root-2D: 3.00 2.0-3.7 cm Pulmonary Valve PV Pk Elmo: 1.31 Peak PV Grad: 7.00 Updated in Other Vendor System with Status of Final Oscar Valiente MD electronically signed on 10/17/2023 8:41:45 AM with status of Final
[2023-10-16] MEDS: Gabapentin 300 MG CAPSULE PO ×2 (08:06→22:05)
[2023-10-16] MEDS: Atorvastatin Calcium 80 MG TABLET PO (08:06)
[2023-10-16] MEDS: Heparin Sodium,Porcine 5,000 UNIT/ML VIAL 5000 UNIT SUBCUT ×2 (08:06→16:53)
[2023-10-16] MEDS: timoloL maleate XE 0.5 % Gel 5 ML DRBTL 1 DROP EYE-BOTH (08:34)
--- NOTE | 2023-10-16 08:36 | PC.NURSE ---
patient is up, sat up and ate her breakfast, patient respirations equal and unlabored, skin warm, dry intact. patient VSS. patient has steady gait to the bathroom. patient states left side still feels weaker then the right, patient side laster tack strength less then right. face symmetrical.
--- NOTE | 2023-10-16 09:41 | MHC.CM.PN ---
CM met with Patient in the ED, at bedside and addressed MATAMOROS with her, providing Patient with the original and a copy will be placed on the chart. Patient lives in a house with her Daughter and her Son-in-Law(who would not want people in his house/VNA). PT is recommending STR and Patient is agreeable to a local SNF search. CM has initiated and will follow for dc planning. Patient's Son/Vince is the HCP and the PCP is Dr. Feroz Reyes.
--- NOTE | 2023-10-16 09:42 | PHA.MEDREC ---
Pharmacy Consult ? Medication Reconciliation Pharmacy has completed the medication reconciliation. Spoke to patient and confirmed medication list. Patient said her dose of cholestyramine was reduced to half a scoop daily.
--- NOTE | 2023-10-16 10:42 | PC.NURSE ---
pt resting in bed, alert & oriented, pleasant. breathing even and unlabored. pt reports baseline lower back pain, chronic issue that she take tyelnol daily for. pt denies any new complaints. slight left sided weakness still present. vss
--- NOTE | 2023-10-16 11:26 | MHC.STROKE ---
1015 Met with patient to discuss stroke education. Pt awake, alert, and answering questions appropriately. Skin warm and dry. Resp unlabored. No complaints offered to this RN. Pt reports left sided facial numbness x approximately one week and left leg weakness for months . Pt states that she got nervous when her vision became blurry in the left eye. I called the doctor and they told me to go straight to the hospital . Reports intermittent headache for a few weeks . No facial droop noted, tongue midline, speaking in full, clear sentences. Hand grasp slightly weaker on the left side and slight drift noted. Lower leg strength equal bilaterally. Nose to finger test normal. Pt reports that she has a hx of cataracts and was also diagnosed with glaucoma. Pt passed swallow evaluation performed by nurse early this am. Awaiting MRI. Pt provided stroke education. All questions answered. Aware that she is awaiting a bed upstairs. No further questions at this time. Aware and agreeable to plan.
--- NOTE | 2023-10-16 12:16 | PC.NURSE ---
Pt taken to MRI at this time
--- NOTE | 2023-10-16 16:06 | P.EN_ITS ---
Event Note Date of Service: 10/17/23 Event Note: Patient seen and examined by hospitalist team this morning. Seen and examined again. Physical exam unchanged from H&P. Assessment plan coordinated in H&P note ? Left-sided weakness: As per patient's somewhat improving but still has left- sided weakness CTA negative, MRI pending Neurology evaluation pending uncontrolled htn: bp improving continue metoprololand amlodipine. Time Spent With Patient Time: Total time managing care of this patient today ____ minutes.
--- NOTE | 2023-10-16 16:40 | PC.NURSE ---
echo at bedside
[2023-10-16] MEDS: 0.9 % Sodium Chloride Flush 3 ML SYRINGE IVFLUSH (16:53)
--- NOTE | 2023-10-16 17:09 | PM.NEUROCN ---
History of Present Illness Data of Consult Service Date: 10/16/23 Primary Care Provider: Feroz Reyes MD HPI Reason for consult: left sided weakness x 2-3 wks This is a 83 years old woman with past medical history of hyperlipidemia and hypertension Presented to the emergency department complaining of persistent left-sided weakness and decreased sensation over the last 3 weeks. She also reports numbness in the left side of her face including the forehead. She denied any headache, nausea, vomiting, visual difficulties, loss of consciousness, speech difficulty or facial droop. She stated that she has walking difficulty as she has been dragging her left leg. She denies history of strokes. No cardiopulmonary or gastrointestinal symptoms reported. No fever or chills. Patient denies history of arrhythmias or stroke. MRI shows no acute stroke, CTA shows no hemodynamically significant stenosis. She still complains of persistent numbness in the entire left side face, arm and leg Review of Systems Review of Systems: All 12 systems were reviewed and normal except as noted in HPI. Neurologic: Reports Sensory deficit (Neuro) (left arm and leg) [facility] Past Medical History Medical History Dark stools Pulmonary embolism Chest discomfort Abnormal EKG PAC (premature atrial contraction) Renal cyst Gastritis DVT (deep venous thrombosis) Anemia HTN (hypertension) GERD (gastroesophageal reflux disease) Family History Family History Father No problems noted. Mother No problems noted. Surgical History Surgical History History of laparoscopic cholecystectomy History of colon resection Social History Social History Household Members: Family Housing: House Do you presently have visiting nurse or other home services: No Alcohol intake: never Patient Tobacco Use Status: Never used Tobacco Advance Directives Date on File: 07/13/21 service: No Current occupational status: retired Meds Allergies Allergy/AdvReac Type Severity Reaction Status Date / Time latex Allergy Rash Verified 07/21/23 16:14 Latex Gloves Allergy Unknown rash Uncoded 07/21/23 16:14 Anjali spice Allergy Unknown Rash Uncoded 07/21/23 16:14 Active Medications: Current Medications Acetaminophen (Acetaminophen 325 Mg Tablet) 650 mg PO Q6H PRN PRN Reason: Pain, Mild (Pain Scale 1-3) Amlodipine Besylate (Amlodipine Besylate 5 Mg Tablet) 5 mg PO DAILY [facility]; Protocol Last Admin: 10/16/23 08:06 Dose: 5 mg Aspirin (Aspirin Enteric Coated 81 Mg Tablet.Dr) 81 mg PO DAILY [facility] Atorvastatin Calcium (Atorvastatin Calcium 80 Mg Tablet) 80 mg PO DAILY [facility] Last Admin: 10/16/23 08:06 Dose: 80 mg Gabapentin (Gabapentin 100 Mg Capsule) 100 mg PO BEDTIME [facility] Gabapentin (Gabapentin 300 Mg Capsule) 300 mg PO BID [facility] Last Admin: 10/16/23 08:06 Dose: 300 mg Heparin Sodium (Porcine) (Heparin Sodium,Porcine 5,000 Unit/Ml Vial) 5,000 unit SUBCUT Q8H [facility] Last Admin: 10/16/23 16:53 Dose: 5,000 unit Metoprolol Tartrate (Metoprolol Tartrate 25 Mg Tablet) 25 mg PO BID [facility]; Protocol Last Admin: 10/16/23 03:24 Dose: 25 mg Sodium Chloride (0.9 % Sodium Chloride Flush 3 Ml Syringe) 3 ml IVFLUSH QSHIFT [facility] Last Admin: 10/16/23 16:53 Dose: 3 ml Timolol Maleate (Timolol Maleate Xe 0.5 % Gel 5 Ml Drbtl) 1 drop EYE-BOTH DAILY [facility] Last Admin: 10/16/23 08:34 Dose: 1 drop Home Medications Medication Instructions Recorded Confirmed Last Taken Type gabapentin 300 mg capsule 300 mg PO BID 09/21/20 10/16/23 10/15/23 History nitroglycerin 0.4 mg sublingual 0.4 mg sublingual DIRECTED 06/19/21 10/16/23 Unknown History tablet diclofenac sodium 1 % topical gel 2 g topical BID 07/13/21 10/16/23 10/15/23 History gabapentin 100 mg capsule 100 mg PO BEDTIME 07/13/21 10/16/23 10/15/23 History loratadine 10 mg tablet 10 mg PO BEDTIME 05/14/22 10/16/23 10/15/23 History calcium carbonate 200 mg calcium 500 mg PO TID 06/27/22 10/16/23 10/15/23 History (500 mg) chewable tablet (Antacid (calcium carbonate)) cholecalciferol (vitamin D3) 25 25 mcg PO DAILY 06/27/22 10/16/23 10/15/23 History mcg (1,000 unit) capsule cholestyramine (with sugar) 4 gram 2 g PO DAILY 06/27/22 10/16/23 10/15/23 History oral powder acetaminophen 650 mg 650 mg PO Q8H PRN pain 10/16/23 10/16/23 Unknown History tablet,extended release latanoprost 0.005 % eye drops 1 drp ophthalmic (eye) BEDTIME 10/16/23 10/16/23 10/15/23 History potassium chloride 10 mEq 10 meq PO BID 10/16/23 10/16/23 10/15/23 History tablet,extended release(part/cryst) (Klor-Con M) rosuvastatin 40 mg tablet 40 mg PO DAILY 10/16/23 10/16/23 10/15/23 History timolol maleate 0.5 % eye gel 1 drp ophthalmic (eye) QAM 10/16/23 10/16/23 10/15/23 History forming solution Physical Exam Vital Signs: Vital Signs: Last Vital Signs Temp 98 F 10/16/23 16:52 Pulse 65 10/16/23 16:52 Resp 16 10/16/23 16:52 BP 152/71 H 10/16/23 16:52 Pulse Ox 100 10/16/23 16:52 O2 Del Method Room Air 10/16/23 16:52 BMI result Body Mass Index 28.7 Const: General: cooperative, healthy appearing, comfortable, no acute distress, well developed, alert, awake and Physically active Orientation/consciousness: patient oriented x3 HEENT: Head: Yes normal to inspection, Yes normocephalic and Yes atraumatic Ears: hearing grossly normal bilaterally Face and sinus: Yes normal facial exam and Yes face symmetric Mouth: Normal oral and palatal mucosa present Eyes: General: appearance normal, both eyes and all related structures Corneas: corneas normal Pupils: Equal, round and reactive pupils present Direct Ophthalmoscopy: normal light reflex and no photophobia Chest: Chest palpation & inspection: normal inspection of the chest Resp: Effort & Inspection: normal respiratory effort and able to speak in complete sentences Auscultation: clear to auscultation bilaterally Cardio: Rate: regular rate Rhythm: regular rhythm Heart sounds: no murmurs GI: Inspection: Yes normal to inspection Palpation (GI): Soft to palpation Percussion: Yes normal to percussion Auscultation: normal bowel sounds Rectal Exam - Female: deferred : General: Yes deferred Skin: General skin exam: no rashes or lesions noted Lesions: no lesions Rashes: no rashes Neuro: Other: Neurological examination is normal except for subjective decrease in all sensory modalities on the entire left side face, arm and leg with no more trickled lens and no reflex abnormalities General: patient oriented x3 and Unable to assess gait Cranial nerves: Yes Equal, round and reactive pupils present, Yes Bilaterally intact EOM present, Yes Nystagmus not present, Yes Normal facial strength present, Yes Normal gag reflex present, Yes Symmetric palate elevation present, Yes Ability to bilaterally rotate head present, Yes Ability to bilaterally elevate shoulders present and Yes Other cranial nerve findings present (left facial sensation (forehead, cheeck and mandibular) decreased ) Cognition (Neuro): normal cognition Gait exam (Neuro): Unable to assess gait Motor exam (neuro): Pronator motor function not present Sensory Exam: Sensory deficit (Neuro) (left arm and leg) Coordination: [id number] test normal Extrem: General: Yes normal to inspection, Yes full ROM, Yes capillary refill normal and Yes no clubbing, cyanosis or edema Right upper extremity: full ROM Left upper extremity: full ROM Psych: Appearance: grossly normal Mental Status: mental status grossly normal Speech and movement: Normal speech and movement present Affect: normal affect Attitude: cooperative Thought process: Normal thought process present Thought content: Normal thought content present Insight: Good insight present (Psych) Judgement: Good judgement present (Psych) Results Labs 10/16/23 05:03 10/16/23 05:03 Labs: Short CBC 10/15/23 10/16/23 Range/Units 21:21 05:03 WBC 12.0 H 11.1 H (4.8-10.8) X10*3/uL Hgb 13.9 12.9 (12.0-16.0) g/dl Hct 41.8 38.3 (37.0-47.0) % Plt Count 205 224 (160-400) X10*3/uL BMP 10/15/23 10/16/23 21:21 05:03 Sodium 138 139 Potassium 4.2 3.8 Chloride 106 106 Carbon Dioxide 20 L 22 BUN 16 15 Creatinine 0.87 0.78 Calcium 10.0 9.5 Liver Function 10/15/23 10/16/23 Range/Units 21:21 05:03 Total Bilirubin 0.3 0.3 (0.0-1.0) mg/dL AST 18 16 (5-31) U/L ALT 14 13 (0-31) U/L Alkaline Phosphatase 72 68 (39-117) U/L Albumin 4.4 4.0 (3.5-5.0) g/dL Urine 10/16/23 Range/Units 05:28 Urine Color Yellow Urine Appearance Clear Urine pH 5.5 (5.0-9.0) Ur Specific [place] 1.010 (1.005-1.025) Urine Protein Negative (Neg-Trace) mg/dL Urine Glucose (UA) Negative (Negative) mg/dL Assessment and Plan (1) Left-sided weakness: Status: Acute Subjective left-sided sensory loss for 22-3 weeks with no objective motor findings or reflex abnormalities and a normal MRI of the brain and CTA. This is not a stroke. Recommendations: PT/ OT and reassurance. (2) HTN (hypertension): Qualifiers: Hypertension type: primary hypertension Qualified Code(s): I10 - Essential (primary) hypertension Status: Acute (3) Hyperlipidemia: Qualifiers: Hyperlipidemia type: unspecified Qualified Code(s): E78.5 - Hyperlipidemia, unspecified Status: Acute Plan Prema Carpenter is a 83 years old woman presents with: Left-sided weakness and numbness, likely secondary to CVA. Admit to hospitalist service. Telemetry. No tPA given -out of window (pt symptoms started 3 weeks ago). Neuro checks. Continue treatment with aspirin and statin. Check hemoglobin A1c. Check head/neck CTA, brain MRI and TTE w/ bubble study. Neurology consult for further recommendations. PT and OT evaluation and treatment. Uncontrolled hypertension. Continue amlodipine. Add metoprolol. Continue to monitor blood pressure. Hyperlipidemia. Continue statin. Check lipid panel. DVT prophylaxis: Heparin subQ Code status: Full Procedures Date of Service Date of Service: 10/16/23
[2023-10-16] MEDS: Acetaminophen 325 MG TABLET 650 MG PO (22:04)
[2023-10-16] MEDS: Gabapentin 100 MG CAPSULE PO (22:05)
[2023-10-17] VITALS (9 sets, daily range): BP systolic 126–168; BP diastolic 58–72; PULSE 53–65; RESP 15–20; TEMP 35.5–36.9; O2SAT 95–99
[2023-10-17] MEDS: Heparin Sodium,Porcine 5,000 UNIT/ML VIAL 5000 UNIT SUBCUT ×3 (00:39→18:04)
[2023-10-17 07:32] LABS: Estimated Average Glucose 103 mg/dL; Hemoglobin A1c % 5.2 % (<6.0)
[2023-10-17 07:44] LABS: Cholesterol 146 mg/dL (<200); HDL Cholesterol 54 mg/dL (>40)
[2023-10-17 07:46] LABS: LDL Cholesterol Calculated 76 mg/dL (<100); Triglycerides 80 mg/dL (<150)
--- NOTE | 2023-10-17 09:33 | MHC.CM.PN ---
CM assisted Patient with the completion of a HCP.
[2023-10-17] MEDS: Gabapentin 300 MG CAPSULE PO (09:56)
[2023-10-17] MEDS: Metoprolol Tartrate 25 MG TABLET PO (09:56)
[2023-10-17] MEDS: Atorvastatin Calcium 80 MG TABLET PO (09:56)
[2023-10-17] MEDS: amLODIPine Besylate 5 MG TABLET PO (09:56)
[2023-10-17] MEDS: Aspirin Enteric Coated 81 MG TABLET.DR PO (09:56)
[2023-10-17] MEDS: 0.9 % Sodium Chloride Flush 3 ML SYRINGE IVFLUSH ×2 (09:57→18:07)
--- NOTE | 2023-10-17 11:21 | MHC.CM.PN ---
Addendum entered by Daiana Ann RN 10/17/23 15:44: IF [facility] DENIES AUTH PT SHOULD BE ABLE TO STILL GO ON ASSISTED BENEFIT W/MEDICARE B PAYING FOR OT/PT. 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 Original Note: ANTIC PT WILL BE MEDICALLY CLEARED FOR STR AT [facility] PENDING AUTH W/[facility] FOR BLS TRANSPORT.
--- NOTE | 2023-10-17 13:23 | MHC.CM.PN ---
PREFERRED SNF [facility] CAN TAKE PT HOWEVER NOT UNTIL THURSDAY 10/19, PT'S SON/HCP AND DIL ISABELLA [phone].
--- NOTE | 2023-10-17 16:03 | MHC.CM.PN ---
CM RECIEVED MESSAGE FROM [facility] ASKING FOR CM TO PREBOOK PT FOR TOMORROW MORNING, PT BOOKED FOR 11AM VIA [employer] FOR BLS TRANSPORT.
--- NOTE | 2023-10-17 16:12 | P.PNIM_ITS ---
Subjective Subjective Date of Service: 10/18/23 Interval History: left sided weakness Review of Systems Weakness seems to be improving, denies any chest pain or shortness of breath or fever or chills. Physical Exam 2 Vital Signs: Vital Signs: Last Vital Signs Temp 98.0 F 10/17/23 15:29 Pulse 65 10/17/23 15:29 Resp 18 10/17/23 15:29 BP 126/58 L 10/17/23 15:29 Pulse Ox 99 10/17/23 15:29 O2 Del Method Room Air 10/17/23 15:29 BMI result Body Mass Index 28.7 Appearance: Alert.? Oriented X3.? cvs: rrr, [id number] , no murmur res: clear to auscultation ,no rhonchii or wheezing abd: no rebound or guarding ,nt, bs present. ext pulses present , no cyanosis neuro: axo3 ,left sided weakness improving ,walking with PT Objective Data Active Medications Acetaminophen (Acetaminophen 325 Mg Tablet) 650 mg PO Q6H PRN PRN Reason: Pain, Mild (Pain Scale 1-3) Last Admin: 10/16/23 22:04 Dose: 650 mg Documented By: KACIE Amlodipine Besylate (Amlodipine Besylate 5 Mg Tablet) 5 mg PO DAILY [facility]; Protocol Last Admin: 10/17/23 09:56 Dose: 5 mg Documented By: BRIANA Aspirin (Aspirin Enteric Coated 81 Mg Tablet.) 81 mg PO DAILY [facility] Last Admin: 10/17/23 09:56 Dose: 81 mg Documented By: BRIANA Atorvastatin Calcium (Atorvastatin Calcium 80 Mg Tablet) 80 mg PO DAILY [facility] Last Admin: 10/17/23 09:56 Dose: 80 mg Documented By: BRIANA Gabapentin (Gabapentin 100 Mg Capsule) 100 mg PO BEDTIME [facility] Last Admin: 10/16/23 22:05 Dose: 100 mg Documented By: KACIE Gabapentin (Gabapentin 300 Mg Capsule) 300 mg PO BID [facility] Last Admin: 10/17/23 09:56 Dose: 300 mg Documented By: BRIANA Heparin Sodium (Porcine) (Heparin Sodium,Porcine 5,000 Unit/Ml Vial) 5,000 unit SUBCUT Q8H [facility] Last Admin: 10/17/23 09:56 Dose: 5,000 unit Documented By: BRIANA Metoprolol Tartrate (Metoprolol Tartrate 25 Mg Tablet) 25 mg PO BID [facility]; Protocol Last Admin: 10/17/23 09:56 Dose: 25 mg Documented By: BRIANA Sodium Chloride (0.9 % Sodium Chloride Flush 3 Ml Syringe) 3 ml IVFLUSH QSHIFT [facility] Last Admin: 10/17/23 09:57 Dose: 3 ml Documented By: BRIANA Timolol Maleate (Timolol Maleate Xe 0.5 % Gel 5 Ml Drbtl) 1 drop EYE-BOTH DAILY [facility] Last Admin: 10/17/23 10:00 Dose: Not Given Documented By: BRIANA Non-Admin Reason: Patient Refused Labs 10/16/23 05:03 10/16/23 05:03 Labs: Laboratory Results - last 24 hr 10/17/23 06:53 Estimat Average Glucose 103 Hemoglobin A1c % 5.2 Triglycerides 80 Cholesterol 146 LDL Cholesterol, Calc 76 HDL Cholesterol 54 Assessment and Plan (1) Left-sided weakness: Status: Acute Plan 83 years old woman presents with: Left-sided weakness and numbness: cta& mri neg echo: 1. Normal LV ejection fraction of 65-70% with mild LVH with impaired relaxation filling pattern and mild obstructive physiology at LVOT level 2. Normal cardiac valvular Dopplers 3. Normal RV systolic pressure 4. No gross pericardial effusion seen by neuro:Subjective left-sided sensory loss for 2-3 weeks with no objective motor findings or reflex abnormalities and normal MRI of the brain and CTA. This is not a stroke. her left sided weakness seems to be improved significantly. PT/ot -STR. Uncontrolled hypertension. Continue amlodipine and metoprolol. Continue to monitor blood pressure. ongoing hospitlisation need -awaiting placement. Quality Stroke Does the patient have a stroke diagnosis?: Yes Reason for No Anti-thrombotic by Day Two: N/A - Med Ordered VTE Prior VTE?: Yes VTE Risk Level:: Medical - moderate - high VTE Device Contraindication: N/A - Device Ordered VTE Drug Contraindication: N/A - Med Ordered
[2023-10-18] MEDS: 0.9 % Sodium Chloride Flush 3 ML SYRINGE IVFLUSH ×2 (00:28→08:33)
[2023-10-18] MEDS: Metoprolol Tartrate 25 MG TABLET PO ×2 (00:28→08:31)
[2023-10-18] MEDS: Heparin Sodium,Porcine 5,000 UNIT/ML VIAL 5000 UNIT SUBCUT ×2 (00:30→08:32)
[2023-10-18 03:34] VITALS: BP 147/68; PULSE 49; RESP 14; TEMP 36.6; O2SAT 99
[2023-10-18 07:47] VITALS: BP 140/69; PULSE 57; RESP 18; TEMP 36.6; O2SAT 99
[2023-10-18] MEDS: Aspirin Enteric Coated 81 MG TABLET.DR PO (08:31)
[2023-10-18] MEDS: amLODIPine Besylate 5 MG TABLET PO (08:31)
[2023-10-18] MEDS: Acetaminophen 325 MG TABLET 650 MG PO (08:32)
[2023-10-18] MEDS: Atorvastatin Calcium 80 MG TABLET PO (08:32)
[2023-10-18] MEDS: Gabapentin 300 MG CAPSULE PO (08:32)
[2023-10-18] MEDS: timoloL maleate XE 0.5 % Gel 5 ML DRBTL 1 DROP EYE-BOTH (08:35)
--- NOTE | 2023-10-18 08:45 | P.DS_ITS ---
DS: Providers Provider Date of Service: 10/18/23 Date of admission: 10/16/23 02:58 Date of discharge: 10/18/23 Primary care physician: Feroz Reyes MD Consults: 10/16/23 03:01 Consult to Neurology Routine Consulting Provider: Octaviano Salcedo Reason for consultation: Left sided hemiparesis Has provider been notified: No Attending physician on discharge: Reynold Jimenez Discharging clinician: Reynold Jimenez DS: Diagnosis Discharge Diagnosis (1) Left-sided weakness: Status: Acute (2) HTN (hypertension): Status: Acute (3) Hyperlipidemia: Status: Acute DS: Summary Hospital Course Hospital Course: 83 years old woman with past medical history significant for hyperlipidemia and hypertension since to the emergency department complaining of persistent left- sided weakness and decreased sensation over the last 3 weeks. She also reports numbness in the left side of her face including the forehead. She denied any event of headache, nausea, vomiting, visual difficulties, loss of consciousness, speech difficulty or facial droop. She stated that she has walking difficulty as she has been dragging her left leg. She denies history of strokes. No cardiopulmonary or gastrointestinal symptoms reported. No fever or chills. P atient denies history of arrhythmias or stroke. However, commented that in occasions she experiences events of palpitations the are self-limited. She does not take aspirin daily. In the ED, she was initially found to have a blood pressure of 212/95. The most recent is 176/78. Blood workup is remarkable for mild leukocytosis of 12.0. There are no significant electrolyte imbalances and renal function is normal. LFTs are normal. CXR is negative. Head CT scan without contrast showed no acute intracranial abnormalities. ECG normal sinus rhythm, LVH changes no acute ischemic changes. ED tx: Aspirin 81 mg, amlodipine 5 mg. Hospital course: Patient was admitted for possible left-sided weakness-neurological workup including CTA and MRI negative, echo also fine with ef 60-70%, seen by Neurology-her weakness seems to be improving, thought to be subjective. Recommended reassurance, PT saw the patient recommended rehab patient -will be going to rehab. Uncontrolled hypertension:seems improving : continue home metoprolol and amlodipine,moniter bp in rehab -please adjust her home meds dosing if needed for htn. 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 please follow up with pcp outpatient for further management. Above management discussed with the patient in detail length she understand and in agreement with the above plan, time spent 50 minutes and 50% time spent on counseling. Time Attestation Discharge coordination time: Greater than 30 minutes Quality: Safe Use of Opioids Does Pt have an Active Cancer Diagnosis on the Problem List?: No Quality: Stroke Does the patient have a stroke diagnosis?: No Physical Exam Vital Signs: Vital Signs: Last Vital Signs Temp 97.9 F 10/18/23 07:47 Pulse 57 10/18/23 07:47 Resp 18 10/18/23 07:47 BP 140/69 H 10/18/23 07:47 Pulse Ox 99 10/18/23 07:47 O2 Del Method Room Air 10/18/23 07:47 BMI result Body Mass Index 28.7 Appearance: Alert.? Oriented X3.? cvs: rrr, [id number] , no murmur res: clear to auscultation ,no rhonchii or wheezing abd: no rebound or guarding ,nt, bs present. ext pulses present , no cyanosis neuro: axo3 ,left sided weakness improving significantly ,walking with PT DS: Data Imaging Chest x-ray: Radiologist's impression: ITS Impressions Head CT 10/15/23 19:46 IMPRESSION: 1. No acute intracranial abnormalities. 2. Mild chronic microangiopathic ischemic changes. Chest X-Ray 10/16/23 01:15 IMPRESSION: No acute cardiopulmonary process. Head/Neck CTA 10/16/23 05:45 IMPRESSION: No hemodynamically significant stenosis or occlusion in the cervical or intracranial vasculature at the level of the [place]. Mild scattered atherosclerotic wall calcifications in the carotid vasculature. No acute territorial infarction or abnormal enhancement. Scattered chronic white matter microangiopathic changes. Nonspecific low-density changes in the d[place] which are more conspicuous compared to prior imaging. The possibility of a focal acute ischemic process cannot be ruled out on the basis of this study. Stable 1.5 cm heterogeneous nodule in the left thyroid lobe when compared to CT imaging from 08/15/2020. No further imaging follow-up is otherwise indicated based on stability. Imaging findings reported to Dr. Jimenez at 8:48 AM on 10/16/2023. Brain MRI 10/16/23 12:49 IMPRESSION: No acute intracranial process. [id number] chronic white matter microangiopathy with generalized brain parenchymal volume loss. 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 Discharge Plan Discharge Anticipated Discharge Date/Time: 10/17/23 11:59 Patient Disposition: Xfer SNF Discharge Diagnosis: left side weakness -improving,possible subjective. Referrals: [facility] [Outside] - 1 Day (SHORT TERM REHB) Feroz Reyes MD [Primary Care Provider] - 1 Week Discharge Medications: Continued gabapentin 300 mg capsule 300 mg PO BID nitroglycerin 0.4 mg tablet, sublingual 0.4 mg sublingual DIRECTED loratadine 10 mg tablet 10 mg PO BEDTIME gabapentin 100 mg Capsule 100 mg PO BEDTIME diclofenac sodium 1 % Gel 2 g TOPICAL BID amlodipine 5 mg Tablet 5 mg PO DAILY Qty: 30 0RF Protocol: Hold for SBP< HOLD for SBP < : 90 acetaminophen 650 mg tablet extended release 650 mg PO Q8H PRN (Reason: pain) potassium chloride [Klor-Con M10] 10 mEq tablet,ER particles/crystals 10 meq PO BID latanoprost 0.005 % drops 1 drp ophthalmic (eye) BEDTIME rosuvastatin 40 mg tablet 40 mg PO DAILY timolol maleate 0.5 % gel forming solution 1 drp ophthalmic (eye) QAM calcium carbonate [Antacid (calcium carbonate)] 200 mg calcium (500 mg) tablet ,chewable 500 mg PO TID cholestyramine (with sugar) 4 gram powder 2 g PO DAILY cholecalciferol (vitamin D3) 25 mcg (1,000 unit) capsule 25 mcg PO DAILY Discharge Orders: Discharge Order (Routine); Ordered 10/18/23 Ordered By: Reynold Jimenez Diet: Advance to usual diet Activity on Discharge: As tolerated Stand Alone Forms: Patient Portal Discharge page Care Plan Goals: Patient was admitted for possible left-sided weakness-neurological workup including CTA and MRI negative, echo also fine with ef 60-70%, seen by Neurology-her weakness seems to be improving, thought to be subjective. Recommended reassurance, PT saw the patient recommended rehab patient -will be going to rehab. Uncontrolled hypertension:seems improving : continue home metoprolol and amlodipine,moniter bp in rehab -please adjust her home meds dosing if needed for htn. 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 please follow up with pcp outpatient for further management. Above management discussed with the patient in detail length she understand and in agreement with the above plan, time spent 50 minutes and 50% time spent on co unseling. 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 please follow up with pcp outpatient for further management. as above. Plan of Treatment: as above. Assessment: as above.
--- NOTE | 2023-10-18 09:08 | MHC.CM.NN ---
Pt has been medically cleared, she will go today to [facility] via ambulance.
== END 2023-10-18 11:35 | disposition skilled nursing facility (03) ==
LOC: HO.ED 10-16 01:11 → HO.EDOVER 10-16 03:12 → HO.IMC 10-16 16:59
PROVIDERS: Physician Assistant; Admitting Provider Internal Medicine; Emergency Provider Emergency Medicine; PCP Internal Medicine; Visit Provider Internal Medicine
DX: G81.94 Hemiplegia, unspecified affecting left nondominant side (principal); I10 Essential (primary) hypertension; E78.5 Hyperlipidemia, unspecified; R20.2 Paresthesia of skin; R07.9 Chest pain, unspecified; R51.9 Headache, unspecified; E83.42 Hypomagnesemia; D64.9 Anemia, unspecified; Z79.899 Other long term (current) drug therapy; Z86.718 Personal history of other venous thrombosis and embolism
CPT/HCPCS: 36415; 70450; 70496; 70498; 70551; 71045; 80053; 80061; 81001; 83036; 83735; 84484; 85025; 85610; 85730; 93005; 93306; 96372; 97110; 97116; 97162; 97166; 97535; 99222; 99285; J1644; Q9967

== ENCOUNTER → 2023-10-15 18:55 | Outpatient (BNV) | payer OTHER, SELFPAY | PROVIDERS: Admitting Provider Internal Medicine; Emergency Provider Emergency Medicine; PCP Internal Medicine; Visit Provider Internal Medicine Cardiovascular Disease | DX: R07.9 Chest pain, unspecified (principal); I10 Essential (primary) hypertension | CPT/HCPCS: 93010 ==

== ENCOUNTER 2023-10-16 02:58 | Outpatient (BNV) | payer OTHER, SELFPAY | END 2023-10-16 07:00 | PROVIDERS: Admitting Provider Internal Medicine; Emergency Provider Emergency Medicine; PCP Internal Medicine; Visit Provider Internal Medicine Cardiovascular Disease | DX: I34.81 Nonrheumatic mitral (valve) annulus calcification (principal) | CPT/HCPCS: 93306 ==

== ENCOUNTER → 2023-10-16 02:58 | Outpatient (BNV) | payer OTHER, SELFPAY | PROVIDERS: Admitting Provider Internal Medicine; Emergency Provider Emergency Medicine; PCP Internal Medicine; Visit Provider Internal Medicine | DX: R53.1 Weakness (principal); I10 Essential (primary) hypertension; E78.5 Hyperlipidemia, unspecified | CPT/HCPCS: 99221; 99231; 99238; 99499 ==

== ENCOUNTER → 2023-10-16 02:58 | Outpatient (BNV) | payer OTHER, SELFPAY | PROVIDERS: Admitting Provider Internal Medicine; Emergency Provider Emergency Medicine; PCP Internal Medicine; Visit Provider Psychiatry & Neurology Neurology | DX: R53.1 Weakness (principal); I10 Essential (primary) hypertension; E78.5 Hyperlipidemia, unspecified | CPT/HCPCS: 99222 ==

== ENCOUNTER 2023-12-02 09:15 | Outpatient (AMB) | payer OTHER, MEDICAID, SELFPAY ==
--- NOTE | 2023-12-02 09:20 | A.OFFVIS_ITS ---
Intake Vital Signs 12/02/23 09:21 Height 4 ft 9 in Weight 125 lb 10.616 oz BMI 27.2 BP 136/70 Blood Pressure Location Lt brachial Position Sitting Pulse 63 Intake Visit Reasons: 1 year follow up Intake Note: 1 year follow-up c/o palpitations at night sometimes nothing new Hand Touch Up Painter Required: No Allergies latex Allergy (Verified 07/21/23 16:14) Rash Latex Gloves Allergy (Unknown, Uncoded 07/21/23 16:14) rash Anjali spice Allergy (Unknown, Uncoded 07/21/23 16:14) Rash Medication List - Last Reconciled 12/02/23 by Oscar Valiente MD acetaminophen ER 650 mg PO Q8H PRN amlodipine 5 mg See Protocol PO DAILY calcium carbonate (Antacid (calcium carbonate)) 500 mg PO TID cholecalciferol (vitamin D3) 25 mcg PO DAILY cholestyramine (with sugar) 4 gram 2 grams PO DAILY clonazepam 0.5 mg PO DAILY diclofenac sodium 1% 2 grams topical BID gabapentin 300 mg PO BID gabapentin 100 mg PO BEDTIME latanoprost 0.005% 1 drp ophthalmic (eye) BEDTIME loratadine 10 mg PO BEDTIME nitroglycerin 0.4 mg sublingual DIRECTED potassium chloride ER (Klor-Con M) 10 mEq PO BID rosuvastatin 40 mg PO DAILY timolol maleate 0.5% 1 drp ophthalmic (eye) QAM HPI HPI Comments History of Present Illness Details Prema comes for follow-up. She had presented to the emergency room in September with left-sided weakness and numbness. Workup at that time from neurologic perspective was within normal limits. She had no significant abnorma lity found at that time. She had significantly elevated blood pressure at that time. However this was managed with amlodipine. On discharge note says being on metoprolol but she has not metoprolol. She says she was taken off metoprolol therapy for unclear reasons. She has been having symptoms of palpitations on a daily basis. Since hospitalization seizure she says she is got weaker and she i s feeling more tired. When she walks up a flight of stairs she feels palpitations. R-waves she also feels palpitations when she is sleeping and wakes her from her sleep. She feels regular fast pounding in her chest. Denies any irregular pounding. No associated symptoms of lightheadedness, syncope, chest pain or shortness of breath. Symptoms happen almost every night and usually last for about a minute. She is taking her medications currently. [facility] Medical History (Updated 12/02/23 @ 09:51 by Oscar Valiente MD) HTN (hypertension) Hyperlipidemia Paresthesia Dark stools Pulmonary embolism Chest discomfort Abnormal EKG PAC (premature atrial contraction) Renal cyst Gastritis DVT (deep venous thrombosis) Anemia GERD (gastroesophageal reflux disease) Surgical History History of laparoscopic cholecystectomy History of colon resection Family History Father No problems noted. Mother No problems noted. Social History Household Members: Children Housing: House Do you presently have visiting nurse or other home services: No Alcohol intake: never Patient Tobacco Use Status: Never used Tobacco Advance Directives Date on File: 07/13/21 service: No Current occupational status: retired Review of Systems Const Denies chills, Denies fatigue, Denies fever(s), Denies frequent falls, Denies weakness, Denies weight gain and Denies weight loss ENT Denies dizziness Card Denies chest pain, Denies leg edema, Denies lightheadedness, Denies palpitations, Denies dyspnea, Denies dyspnea on exertion, Denies orthopnea and Denies other (loss of consciousness) Resp Denies cough, Denies dyspnea and Denies dyspnea on exertion GI Denies hematochezia and Denies change in stool character Musc Denies abnormal gait, Denies muscle weakness, Denies numbness, Denies radiating pain into limb and Denies tingling Neuro Denies abnormal gait, Denies dizziness, Denies frequent falls, Denies numbness, Denies tingling and Denies weakness Endo Denies fatigue and Denies palpitations Physical Exam Vital Signs: Last Vital Signs Pulse 63 12/02/23 09:21 BP 136/70 12/02/23 09:21 BMI result Body Mass Index 27.2 Const General: cooperative, healthy appearing, comfortable and no acute distress Neck Neck: Yes normal visual inspection and Yes no JVD Resp Effort & Inspection: normal respiratory effort Auscultation: clear to auscultation bilaterally, no crackles, no rales, no rhonchi and no wheezes Cardio Jugular venous distension: no JVD Rate: regular rate Rhythm: regular rhythm Heart sounds: S1 normal heart sound present, S2 normal heart sound present, no gallops, no murmurs and no rubs Peripheral pulses: Peripheral pulses 2+ throughout Skin General skin exam: no rashes or lesions noted Extrem General: Yes normal to inspection, No no pedal edema and No calf tenderness Psych Appearance: grossly normal Mental Status: mental status grossly normal Speech and movement: Normal speech and movement present Assessment & Plan Assessment & Plan (1) PAC (premature atrial contraction): Code(s): I49.1 - Atrial premature depolarization Plan: Patient with prior history of PACs not having symptoms of pounding in the chest with fast heart rate could represent SVT and/or atrial fibrillation. Would suggest a 3 day Holter monitor the symptoms happen on every day basis. Further treatment based on the findings. If she just as occasional isolated PACs no further treatment changes would be pursued. If she is significant fast heart rate and arrhythmias correlating with symptoms may benefit from verapamil therapy see below. (2) HTN (hypertension): Code(s): I10 - Essential (primary) hypertension Qualifiers: Hypertension type: primary hypertension Qualified Code(s): I10 - Essential (primary) hypertension Plan: Hypertension which is currently optimized on amlodipine therapy. Continue the same. Low-salt diet was discussed also discussed stress mitigation strategy and treating her anxiety. This plays a big role in her blood pressure as well. Continue participate in physical activity as tolerated. She does have mild obstructive physiology with asymmetric septal hypertrophy but has no significant symptoms related to it. However she has significant tachyarrhythmias may benefit from verapamil therapy which will help both treatment of hypertension, obstructive physiology as well as arrhythmias. Will follow up in the clinic otherwise in 1 year's time, sooner p.r.n.. Thank you for allowing me to partake in her care Medications: Changed From amlodipine 5 mg See Protocol PO DAILY 30 tabs 0RF To amlodipine 5 mg See Protocol PO DAILY Coding Level of Care Code Est Pt Level 4 (82410) Diagnoses PAC (premature atrial contraction) I49.1 Primary hypertension I10 Hypertension type: primary hypertension
[2023-12-02 09:21] VITALS: BP 136/70; PULSE 63; BMI 27.2
== END 2023-12-02 09:42 | disposition home or self-care (01) ==
PROVIDERS: Visit Provider Internal Medicine Cardiovascular Disease
DX: I49.1 Atrial premature depolarization (principal); I10 Essential (primary) hypertension
CPT/HCPCS: 99214

== ENCOUNTER → 2023-12-02 09:15 | Outpatient (BNVA) | payer OTHER, MEDICAID, SELFPAY | PROVIDERS: Visit Provider Internal Medicine Cardiovascular Disease | DX: I49.1 Atrial premature depolarization (principal); I10 Essential (primary) hypertension | CPT/HCPCS: 99212 ==

== ENCOUNTER → 2023-12-24 09:52 | Outpatient (REF) | payer OTHER, SELFPAY ==
--- NOTE | 2023-12-24 09:54 | HM_ITS ---
Conclusion: 1. Patient was monitored for total period of 3 days 2. Baseline was normal sinus rhythm with average heart of 71 beats per minute 3. Frequent PACs noted with total burden of 9.9% without significant sustained SVT runs 4. Occasional PVCs noted 5. No significant pauses noted 6. Patient reported multiple events 18 in total, with multiple symptoms including shortness of breath and chest tightness. Episodes of palpitations appear to be related to PACs and PVCs MTDD
== END ==
LOC: HO.CARD 09:52
PROVIDERS: PCP Internal Medicine; Visit Provider Internal Medicine Cardiovascular Disease
DX: I49.1 Atrial premature depolarization (principal)
CPT/HCPCS: 93242

== ENCOUNTER → 2023-12-24 09:54 | Outpatient (BNV) | payer OTHER, SELFPAY | PROVIDERS: PCP Internal Medicine; Visit Provider Internal Medicine Cardiovascular Disease | DX: I49.1 Atrial premature depolarization (principal); I49.3 Ventricular premature depolarization | CPT/HCPCS: 93244 ==

== ENCOUNTER 2024-01-06 06:27 | Day surgery (SDC) | payer OTHER, SELFPAY ==
[2024-01-03 09:35] VITALS: BMI 27.7
[2024-01-03 10:00] VITALS: BMI 29.0
--- NOTE | 2024-01-03 10:36 | P.CONAN_ITS ---
Documented by User: Kary Engle NP 01/03/24 10:39 HPI - Anesthesia Eval Consult details Narrative: 83yo F for Colonoscopy Follows [facility] [place] cardiology for PAC, htn. Last office visit 11/2023. Stable for 1 year f/u. [facility] Active Problems Active Problems: All Active Problems Left-sided weakness (Acute) Asymmetric septal hypertrophy (Acute) Abnormal echocardiography (Acute) Hypocalcemia (Acute) Hypomagnesemia (Acute) Hypokalemia (Acute) Palpitation (Acute) HTN (hypertension) (Acute) Pulmonary embolism (Acute) PAC (premature atrial contraction) (Acute) DVT (deep venous thrombosis) (Acute ~2017) Renal cyst (Acute) History of laparoscopic cholecystectomy (Acute) History of colon resection (Acute ~2017) Chest discomfort (Acute) Abnormal EKG (Acute) Past Medical History Medical History (Updated 01/03/24 @ 09:32 by Yessenia Perez RN) Hx of flexible sigmoidoscopy (~2017) Hx of diverticulitis of colon Hyperlipidemia Paresthesia Dark stools Pulmonary embolism Chest discomfort Abnormal EKG PAC (premature atrial contraction) Renal cyst Gastritis DVT (deep venous thrombosis) (~2017) Anemia HTN (hypertension) GERD (gastroesophageal reflux disease) Family History Family History Father No problems noted. Mother No problems noted. Surgical History Surgical History (Updated 01/03/24 @ 09:33 by Yessenia Perez RN) Hx of colonoscopy History of esophagogastroduodenoscopy (EGD) History of laparoscopic cholecystectomy History of colon resection (~2017) Social History Social History (Updated 01/03/24 @ 10:00 by Yessenia Perez RN) Household Members: Children Housing: House Are you a primary director of medicare to a significant other at home: No Do you presently have visiting nurse or other home services: No Alcohol intake: never Patient Tobacco Use Status: Never used Tobacco Use of substances other than those prescribed or required for medical reasons: No Are you DNR?: No Advance Directives: Yes Advance Directives Information Provided: Yes Advance Directives on File: No Advance Directives Date on File: 07/13/21 Nutrition Risks: Surgical patient >75years Poor oral hygiene: No service: No Current occupational status: retired Meds Allergies Allergy/AdvReac Type Severity Reaction Status Date / Time latex Allergy Severe Rash Verified 01/03/24 09:42 Latex Gloves Allergy Severe rash Uncoded 01/03/24 09:42 Anjali spice Allergy Severe Rash Uncoded 01/03/24 09:42 Home Medications ?Medication ?Instructions ?Recorded ?Confirmed ?Last Taken ?Type gabapentin 300 mg capsule 300 mg PO BID 09/21/20 01/03/24 10/15/23 History nitroglycerin 0.4 mg sublingual 0.4 mg sublingual DIRECTED 06/19/21 01/03/24 Unknown History tablet diclofenac sodium 1 % topical gel 2 g topical BID 07/13/21 01/03/24 10/15/23 History gabapentin 100 mg capsule 100 mg PO BEDTIME 07/13/21 01/03/24 10/15/23 History loratadine 10 mg tablet 10 mg PO BEDTIME 05/14/22 01/03/24 10/15/23 History calcium carbonate (Antacid 500 mg PO TID 06/27/22 01/03/24 10/15/23 History (calcium carbonate)) cholecalciferol (vitamin D3) 25 25 mcg PO DAILY 06/27/22 01/03/24 10/15/23 History mcg (1,000 unit) capsule cholestyramine (with sugar) 4 gram 2 g PO DAILY 06/27/22 01/03/24 10/15/23 History oral powder acetaminophen 650 mg 650 mg PO Q8H PRN pain 10/16/23 01/03/24 Unknown History tablet,extended release latanoprost 0.005 % eye drops 1 drp ophthalmic (eye) BEDTIME 10/16/23 01/03/24 10/15/23 History potassium chloride 10 mEq 10 meq PO BID 10/16/23 01/03/24 10/15/23 History tablet,extended release(part/cryst) (Klor-Con M) rosuvastatin 40 mg tablet 40 mg PO DAILY 10/16/23 01/03/24 10/15/23 History timolol maleate 0.5 % eye gel 1 drp ophthalmic (eye) QAM 10/16/23 01/03/24 10/15/23 History forming solution amlodipine 5 mg tablet 5 mg PO DAILY 12/02/23 01/03/24 01/06/24 History clonazepam 0.5 mg tablet 0.5 mg PO DAILY 12/02/23 12/02/23 Unknown History cyanocobalamin (vitamin B-12) 1,000 mcg PO DAILY 01/03/24 01/03/24 Unknown History 1,000 mcg tablet (Vitamin B-12) Exam Height,Weight and Vital Signs: Height 4 ft 9 in Weight 60.781 kg Pertinent Lab Results Pertinent Lab Results: Laboratory Tests 10/16/23 05:03 WBC 11.1 H Hgb 12.9 Hct 38.3 Plt Count 224 Sodium 139 Potassium 3.8 Chloride 106 Carbon Dioxide 22 BUN 15 Creatinine 0.78 Narrative Narrative: EKG 2023 Vent. Rate : 061 BPM Atrial Rate : 061 BPM P-R Int : 152 ms QRS Dur : 072 ms QT Int : 416 ms P-R-T Axes : 046 031 085 degrees QTc Int : 418 ms Normal sinus rhythm Minimal voltage criteria for LVH, may be normal variant ( Sokolow-Soriano ) Borderline ECG When compared with ECG of 20-APR-2022 12:48, No significant change was found ECHO 2023 Conclusions: - 1. Normal LV ejection fraction of 65-70% with mild LVH with impaired relaxation filling pattern and mild obstructive physiology at LVOT level 2. Normal cardiac valvular Dopplers 3. Normal RV systolic pressure 4. No gross pericardial effusion Holter 2023 1. Patient was monitored for total period of 3 days 2. Baseline was normal sinus rhythm with average heart of 71 beats per minute 3. Frequent PACs noted with total burden of 9.9% without significant sustained SVT runs 4. Occasional PVCs noted 5. No significant pauses noted 6. Patient reported multiple events 18 in total, with multiple symptoms including shortness of breath and chest tightness. Episodes of palpitations appear to be related to PACs and PVCs Assessment and Plan Assessment Anesthesia Assessment: Chart Reviewed Documented by User: Stan Lazaro MD 01/06/24 08:18 [facility] Past Medical History Medical History (Updated 01/03/24 @ 09:32 by Yessenia Perez RN) Hx of flexible sigmoidoscopy (~2017) Hx of diverticulitis of colon Hyperlipidemia Paresthesia Dark stools Pulmonary embolism Chest discomfort Abnormal EKG PAC (premature atrial contraction) Renal cyst Gastritis DVT (deep venous thrombosis) (~2017) Anemia HTN (hypertension) GERD (gastroesophageal reflux disease) Family History Family History Father No problems noted. Mother No problems noted. Family history of problems with anesthesia: No Surgical History Surgical History (Updated 01/03/24 @ 09:33 by Yessenia Perez RN) Hx of colonoscopy History of esophagogastroduodenoscopy (EGD) History of laparoscopic cholecystectomy History of colon resection (~2016) History of Problems with Anesthesia: No Social History Social History (Updated 01/03/24 @ 10:00 by Yessenia Perez RN) Household Members: Children Housing: House Are you a primary director of medicare to a significant other at home: No Do you presently have visiting nurse or other home services: No Alcohol intake: never Patient Tobacco Use Status: Never used Tobacco Use of substances other than those prescribed or required for medical reasons: No Are you DNR?: No Advance Directives: Yes Advance Directives Information Provided: Yes Advance Directives on File: No Advance Directives Date on File: 07/13/21 Nutrition Risks: Surgical patient >75years Poor oral hygiene: No service: No Current occupational status: retired Meds Allergies Allergy/AdvReac Type Severity Reaction Status Date / Time latex Allergy Severe Rash Verified 01/03/24 09:42 Latex Gloves Allergy Severe rash Uncoded 01/03/24 09:42 Anjali spice Allergy Severe Rash Uncoded 01/03/24 09:42 Home Medications ?Medication ?Instructions ?Recorded ?Confirmed ?Last Taken ?Type gabapentin 300 mg capsule 300 mg PO BID 09/21/20 01/03/24 10/15/23 History nitroglycerin 0.4 mg sublingual 0.4 mg sublingual DIRECTED 06/19/21 01/03/24 Unknown History tablet diclofenac sodium 1 % topical gel 2 g topical BID 07/13/21 01/03/24 10/15/23 History gabapentin 100 mg capsule 100 mg PO BEDTIME 07/13/21 01/03/24 10/15/23 History loratadine 10 mg tablet 10 mg PO BEDTIME 05/14/22 01/03/24 10/15/23 History calcium carbonate (Antacid 500 mg PO TID 06/27/22 01/03/24 10/15/23 History (calcium carbonate)) cholecalciferol (vitamin D3) 25 25 mcg PO DAILY 06/27/22 01/03/24 10/15/23 History mcg (1,000 unit) capsule cholestyramine (with sugar) 4 gram 2 g PO DAILY 06/27/22 01/03/24 10/15/23 History oral powder acetaminophen 650 mg 650 mg PO Q8H PRN pain 10/16/23 01/03/24 Unknown History tablet,extended release latanoprost 0.005 % eye drops 1 drp ophthalmic (eye) BEDTIME 10/16/23 01/03/24 10/15/23 History potassium chloride 10 mEq 10 meq PO BID 10/16/23 01/03/24 10/15/23 History tablet,extended release(part/cryst) (Klor-Con M) rosuvastatin 40 mg tablet 40 mg PO DAILY 10/16/23 01/03/24 10/15/23 History timolol maleate 0.5 % eye gel 1 drp ophthalmic (eye) QAM 10/16/23 01/03/24 10/15/23 History forming solution amlodipine 5 mg tablet 5 mg PO DAILY 12/02/23 01/03/24 01/06/24 History clonazepam 0.5 mg tablet 0.5 mg PO DAILY 12/02/23 12/02/23 Unknown History cyanocobalamin (vitamin B-12) 1,000 mcg PO DAILY 01/03/24 01/03/24 Unknown History 1,000 mcg tablet (Vitamin B-12) Exam Airway Mallampati Class: II TM Dist: >3cm Neck ROM: Full Loose/Missing/Broken Teeth: No Heart: rrr Lungs: cta Assessment and Plan Final Anesthetic Review Family History of Problems with Anesthesia: No History of Problems with Anesthesia: No NPO: Yes ASA Class: III Final Preanesthetic Review: No Changes in Pt Med Stat, Meds/Allgs Chart Reviewed, Consent Obtained/Reviewed and Anes Risks/Benef Reviewed Patient Risk: Intermediate Procedure Risk: Intermediate Anesthetic Plan Anesthetic Plan: MAC: Disposition: Standard PACU
[2024-01-06 06:39] VITALS: BMI 29.0
[2024-01-06 07:50] VITALS: PULSE 53; RESP 18; TEMP 36.1; O2SAT 97
--- NOTE | 2024-01-06 08:50 | PC.NURSE ---
late entry for 0800 pt states i am a hard stick. notified dr. alcantar anesthesiology at bedside. this rn and anesthesiologist dr. gale attempting iv. has had picc line before. to go out of order on next case while attempting iv. insulation cupola charger's trying witout success. midline order d fm d smi
--- NOTE | 2024-01-06 09:10 | PC.NURSE ---
0903 notified naresh [facility] to fit in. pt updated
--- NOTE | 2024-01-06 09:46 | PC.NURSE ---
pt given warm blanket and updated. applied brief. pt and dr. alcantar updated awaiting radiology availability for midline iv placement
--- NOTE | 2024-01-06 10:40 | PC.NURSE ---
pt standby assist to bathroom for self incontinence care of yellow clear fluid via rectum. states I had a good nap updated on progress of midline.
--- NOTE | 2024-01-06 10:51 | PC.NURSE ---
pt back from bathroom. radiology turning over room. pt aware.
[2024-01-06] MEDS: Lactated Ringers 1,000 ML 100 ML IVCONT (13:12)
--- NOTE | 2024-01-06 13:32 | PC.NURSE ---
this rn on break, upon return, pt came from radiology without chart. physically went to look, chart found.
[2024-01-06 14:35] VITALS: BP 114/61; PULSE 87; RESP 18; TEMP 36.6; O2SAT 98
--- NOTE | 2024-01-06 14:42 | P.BOP_ITS ---
Brief Operative Note Date of Service: 01/06/24 Pre-op diagnosis: Heme + stool, diarrhea Post-op diagnosis: other (Colon polyps, R/O Microscopic colitis) Procedure: Colonoscopy to the cecum and TI with hot snare polypectomies x 6, and biopsies Surgeon: Artemio Blunt MD Anesthesia: MAC Was an Musical Instrument Maker Or Repairer used for this Procedure?: No Estimated blood loss (mL): 2.0 Pathology: other (A. Polyp at 40cm B. Cecal polyp C. Ascending colon polyps D. Ascending colon biopsies E. Transverse colon polyp F. Polyp at 20cm) Condition: stable Disposition: PACU
[2024-01-06 14:50] VITALS: BP 114/60; PULSE 59; RESP 18; TEMP 36.4; O2SAT 99
--- NOTE | 2024-01-06 16:00 | OP_ITS ---
DATE OF SERVICE: 01/06/2024 SURGEON: Artemio Blunt MD INDICATIONS: The patient presents for evaluation of heme-positive stool and chronic diarrhea. Full consent has been obtained from her for this, including risks of bleeding and perforation. PREOPERATIVE DIAGNOSIS: POSTOPERATIVE DIAGNOSIS: PROCEDURE PERFORMED: Colonoscopy to the cecum and terminal ileum with hot snare polypectomies, and biopsies. ESTIMATED BLOOD LOSS: COMPLICATIONS: ANESTHESIA: Monitored anesthesia care. ASSISTANTS: SPECIMENS: PREOPERATIVE DIAGNOSES: Heme-positive stool and chronic diarrhea. POSTOPERATIVE DIAGNOSES: Heme-positive stool, chronic diarrhea, multiple colon polyps, diverticulosis, rule out microscopic colitis, and internal hemorrhoids. DESCRIPTION OF PROCEDURE: The patient was placed in the left lateral decubitus position. The digital rectal exam revealed no abnormalities. The Olympus video pediatric colonoscope was then entered into the rectum and advanced easily to the cecum. Once in the cecum, I did identify cecal pouch with appendiceal orifice and a normal-appearing ileocecal valve. The terminal ileum was cannulated and appeared normal. The scope was withdrawn back in the colon. The entire cecum was well visualized. In the cecum, was an approximately 8 to 10 mm flat, but raised polyp, which was removed by hot snare polypectomy and recovered by suction. The polypectomy site appeared clean, without any sign of residual polyp nor bleeding. The scope was then slowly withdrawn, assessing all mucosal surfaces carefully. Preparation was excellent. In the proximal ascending colon, were 2 polyps. One was approximately 12 to 15 mm in size and removed by hot snare polypectomy. This was able to be retrieved by suction. In the same area, was an approximately 8 mm polyp, which was removed by hot snare polypectomy as well and recovered by suction. Both polypectomy sites appeared clean, without any sign of residual polyp nor bleeding. I did obtain random biopsies in the ascending colon given her chronic diarrhea. There was no evidence of any colitis nor angiodysplasia. In the transverse colon, 40 cm, and at 20 cm, were polyps ranging in size between 8 and 12 mm in diameter. These were all removed by hot snare polypectomy and recovered by suction. All the polypectomy sites appeared clean, without any sign of residual polyp nor bleeding. There was a moderate amount of diverticulosis involving the distal portion of the descending colon and extending down to 20 cm. The very distal sigmoid area had some poor distensibility consistent with her previous low anterior sigmoid resection. I did not visualize any mucosal abnormalities. In the rectum, scope was retroflexed visualizing internal hemorrhoids, but no other pathology. The rectal mucosa appeared normal. Scope was straightened and withdrawn from the patient. She tolerated the procedure well and was returned to the recovery area in stable condition. IMPRESSION: 1. Multiple colon polyps. 2. Diverticulosis. 3. Rule out microscopic colitis. 4. Internal hemorrhoids. PLAN: The results of the pathology will be checked. Given her age, I do not think she will need any further screening colonoscopies. She was advised not to use any aspirin and NSAIDs for at least 1 week. She was advised to continue her cholestyramine powder to help with her presumed bile-induced diarrhea. She will see me later in the year for a followup visit. She was advised to call sooner if needed. MD RYAN Hernandez/GRACE / [phone]
== END 2024-01-06 15:22 | disposition home or self-care (01) ==
PROVIDERS: PCP Internal Medicine; Visit Provider Internal Medicine
PROC: 0DJD8ZZ Inspection of Lower Intestinal Tract, Via Natural or Artificial Opening Endoscopic (ICD-10-PCS; CPT 45378; principal; 2024-01-06 08:00)
DX: R19.5 Other fecal abnormalities (principal); K52.9 Noninfective gastroenteritis and colitis, unspecified; D12.0 Benign neoplasm of cecum; D12.2 Benign neoplasm of ascending colon; D12.3 Benign neoplasm of transverse colon; D12.6 Benign neoplasm of colon, unspecified; K57.30 Diverticulosis of large intestine without perforation or abscess without bleeding; K64.8 Other hemorrhoids; Z98.0 Intestinal bypass and anastomosis status; I10 Essential (primary) hypertension
CPT/HCPCS: 45385; 45380; 88305; J2704

== ENCOUNTER → 2024-08-31 15:23 | Outpatient (BNV) | payer OTHER, SELFPAY | PROVIDERS: Emergency Provider Emergency Medicine; Visit Provider Internal Medicine | DX: R94.31 Abnormal electrocardiogram [ECG] [EKG] (principal) | CPT/HCPCS: 93010 ==

== ENCOUNTER 2024-11-25 15:09 | Emergency (ER) | payer OTHER, SELFPAY ==
--- NOTE | ~2024-11-25 | CT_ITS ---
CLINICAL HISTORY: fall CT cervical spine without contrast Comparison: None Findings: Cervical alignment is maintained. Vertebral body height is maintained. No acute fracture in the cervical spine. Craniocervical junction is intact. Multilevel degenerative changes especially from C4-5 to C6-7. Facet arthropathy. C3-4 mild disc bulge. C4-5 small central disc herniation with calcification and mild canal stenosis. Mild spondylotic disc bulges C5-6 and C6-7. Prevertebral soft tissues within. Atherosclerotic vascular disease. 6 mm hypodense left thyroid lobe nodule. Lung apices are clear IMPRESSION: 1 No acute findings. 2. Nonacute findings as described. This document has been electronically signed by: Gela Stroud MD on 11/25/2024 19:34:07
--- NOTE | ~2024-11-25 | XR_ITS ---
CLINICAL HISTORY: abd pain 1 view abdomen Comparison: None Findings: Bowel gas pattern is nonobstructive. No pathologic calcifications. Right upper quadrant surgical clips. No acute fractures. Degenerative changes lumbar spine and bilateral hips. IMPRESSION: Nonobstructive bowel gas pattern. This document has been electronically signed by: Gela Stroud MD on 11/25/2024 17:46:43
--- NOTE | ~2024-11-25 | CT_ITS ---
CLINICAL HISTORY: fall CT head without contrast Comparison: CT/REG/SR - CT HEAD/BRAIN WO IV CON - 10/15/23 19:31 EST Findings: No intra-axial mass, midline shift, hydrocephalus, or acute hemorrhage. There is mild atrophy. There are nonspecific supratentorial white matter hypodensities most suggestive of chronic small-vessel ischemic changes. Atherosclerotic vascular disease There is no sinus or mastoid fluid. The orbits are within normal limits. There is no acute skull fracture. IMPRESSION: 1. No acute intracranial findings. This document has been electronically signed by: Gela Stroud MD on 11/25/2024 19:40:16
--- NOTE | ~2024-11-25 | CT_ITS ---
CLINICAL HISTORY: diffus ABD pain, lower TTP, nausea, hx. diverticul CT abdomen and pelvis with contrast Comparison: CR - XR KUB - 11/25/24 16:[address]/REG/SR - CT ABDOMEN PELVIS W IV CON - 07/21/23 20:20 EST Findings: CT abdomen: Areas of likely linear atelectasis within the lower lobes bilaterally. No focal areas of consolidation. Bones are osteopenic. No acute bony lesions. Gallbladder is surgically absent. No focal hepatic lesions. Main portal vein is patent. Spleen and pancreas are unremarkable. Unchanged mass of the central portion of the right adrenal gland measuring 1.6 x 1.5 cm in size. Left adrenal gland is unremarkable. Multiple cysts within the kidneys without acute renal lesion or hydronephrosis. Wall thickening of the proximal to mid gastric body with fluid distention of the mid to distal gastric body. Mild hyperenhancement of the duodenal wall. Fluid-filled dilated loops of small bowel are seen within the abdomen and pelvis. There is small bowel wall thickening within the proximal jejunum measuring up to 12 mm. No distinct transition point is identified. No free fluid or free air. CT pelvis: Suture material seen at the rectosigmoid junction. Extensive diverticular disease with wall thickening of the sigmoid colon just proximal to the suture line. There is focal caliber change at the site of fluid-filled colon within the left midabdomen near the junction of the descending colon and sigmoid colon. This findings is similar to that seen previously. Colonic air-fluid levels are seen proximal to this. No discrete fluid collection seen to suggest abscess. Urinary bladder is minimally distended. Uterus is surgically absent. IMPRESSION: 1. Fluid-filled loops of small bowel with additional liquid stool throughout the colon. Pattern suggests infectious or inflammatory enterocolitis versus ileus. 2. Continued area of caliber change near the junction of the descending colon and sigmoid colon where there is fairly pronounced diverticular disease of the sigmoid colon. This suggests a intermediate accountant site of luminal narrowing without complete obstructive phenomenon. 3. Unchanged right adrenal gland mass. This is unchanged compared to the patient's most distant examination from April 20, 2022. Adrenal adenoma would be favored. However, that can not be definitively determined on this single phase study. Correlation with any known primary malignancy is suggested. This document has been electronically signed by: Tayo David MD on 11/26/2024 02:40:54
[2024-11-25 15:16] VITALS: BP 153/63; PULSE 54; RESP 12; TEMP 36.2; O2SAT 99; BMI 25.9
--- NOTE | 2024-11-25 15:34 | ED.ABDPAIN ---
HPI - Abdominal Pain General Chief Complaint: Abdominal Pain Stated Complaint: Abd pain, weakness Time Seen by Provider: 11/25/24 21:24 Source: patient Mode of arrival: ambulatory Limitations: no limitations History of Present Illness ED Provider: Marichuy Santizo NP HPI narrative: Patient is an 84-year-old female who presents emergency department for evaluation. She reports that at approximately 12:00 this afternoon she began experiencing lower abdominal pain nausea chills generalized weakness. She states she has not been passing gas. Endorses having a history of diverticulitis, was not certain whether this was what was causing her symptoms. She has also endorsed having a poor appetite today. Her time in the waiting room after her rapid medical examination, family had made staff aware that she sustained a fall yesterday. Patient reports that there is a threshold when passing through her door, and that she has a fire proof door that is very heavy, the door ultimately shut hitting her striking her down she states that she fell to the floor. She does report that she ?blacked out? for a couple of sec. This was unwitnessed. She was able to get up normally afterwards. Denies fevers, chills, headache, dizziness, lightheadedness, vision changes, neck pain, neck stiffness, chest pain, vomiting, hematemesis, diarrhea, constipation, hematochezia, melena, dysuria, urinary frequency, urinary urgency, urinary hesitancy, hematuria. Related Data Home Medications ?Medication ?Instructions ?Recorded ?Confirmed gabapentin 300 mg capsule 300 mg PO BID 09/21/20 01/03/24 nitroglycerin 0.4 mg sublingual 0.4 mg sublingual DIRECTED 06/19/21 01/03/24 tablet diclofenac sodium 1 % topical gel 2 g topical BID 07/13/21 01/03/24 gabapentin 100 mg capsule 100 mg PO BEDTIME 07/13/21 01/03/24 loratadine 10 mg tablet 10 mg PO BEDTIME 05/14/22 01/03/24 calcium carbonate (Antacid 500 mg PO TID 06/27/22 01/03/24 (calcium carbonate)) cholecalciferol (vitamin D3) 25 25 mcg PO DAILY 06/27/22 01/03/24 mcg (1,000 unit) capsule cholestyramine (with sugar) 4 gram 2 g PO DAILY 06/27/22 01/03/24 oral powder acetaminophen 650 mg 650 mg PO Q8H PRN pain 10/16/23 01/03/24 tablet,extended release latanoprost 0.005 % eye drops 1 drp ophthalmic (eye) BEDTIME 10/16/23 01/03/24 potassium chloride 10 mEq 10 meq PO BID 10/16/23 01/03/24 tablet,extended release(part/cryst) (Klor-Con M) rosuvastatin 40 mg tablet 40 mg PO DAILY 10/16/23 01/03/24 timolol maleate 0.5 % eye gel 1 drp ophthalmic (eye) QAM 10/16/23 01/03/24 forming solution amlodipine 5 mg tablet 5 mg PO DAILY 12/02/23 01/03/24 clonazepam 0.5 mg tablet 0.5 mg PO DAILY 12/02/23 12/02/23 cyanocobalamin (vitamin B-12) 1,000 mcg PO DAILY 01/03/24 01/03/24 1,000 mcg tablet (Vitamin B-12) Previous Rx's ?Medication ?Instructions ?Recorded metoprolol succinate 25 mg 25 mg PO DAILY #30 tabs 06/25/24 tablet,extended release 24 hr (Toprol XL) loperamide 2 mg capsule 2 mg PO Q4H PRN loose stool #14 08/31/24 caps nitrofurantoin 100 mg PO Q12H 5 days #10 caps 08/31/24 monohydrate/macrocrystals 100 mg capsule (Macrobid) amoxicillin 875 mg-potassium 1 tab PO BID #20 tabs 11/26/24 clavulanate 125 mg tablet Allergies Allergy/AdvReac Type Severity Reaction Status Date / Time latex Allergy Severe Rash Verified 11/25/24 15:18 Latex Gloves Allergy Severe rash Uncoded 11/25/24 15:18 Anjali spice Allergy Severe Rash Uncoded 11/25/24 15:18 Review of Systems Review of Systems Yes all other systems are reviewed and are negative [facility] Past Medical History Attestation statement: The following information was validated with the patient. Source: old records reviewed Medical History Hx of flexible sigmoidoscopy (~2017) Hx of diverticulitis of colon Hyperlipidemia Paresthesia Dark stools Pulmonary embolism Chest discomfort Abnormal EKG PAC (premature atrial contraction) Renal cyst Gastritis DVT (deep venous thrombosis) (~2017) Anemia HTN (hypertension) GERD (gastroesophageal reflux disease) Surgical History Hx of colonoscopy History of esophagogastroduodenoscopy (EGD) History of laparoscopic cholecystectomy History of colon resection (~2017) Family History Family History Father No problems noted. Mother No problems noted. Social History Social History (Updated 01/03/24 @ 10:00 by Yessenia Perez RN) Household Members: Children Housing: House Are you a primary care navigator to a significant other at home: No Do you presently have visiting nurse or other home services: No Alcohol intake: never Patient Tobacco Use Status: Never used Tobacco Smoked in Last 30 Days: No Use of substances other than those prescribed or required for medical reasons: No Advance Directives: Yes Advance Directives on File: Yes Advance Directives Date on File: 10/21/23 Do you have a plan to hurt others: No Plan service: No Current occupational status: retired Physical Exam ED Vital Signs: Vital Signs - 24 hr 11/25/24 15:16 11/25/24 20:54 11/25/24 22:14 Temperature 97.2 F 97.3 F 98.1 F Pulse Rate 54 61 71 Respiratory Rate 12 19 19 Blood Pressure 153/63 H 153/62 H 138/66 Pulse Oximetry 99 99 100 Oxygen Delivery Method Room Air Room Air Room Air 11/26/24 02:32 Temperature 97.7 F Pulse Rate 77 Respiratory Rate 18 Blood Pressure 143/70 H Pulse Oximetry 98 Oxygen Delivery Method Room Air BMI result Body Mass Index 25.9 Appearance: Alert.?Oriented to person, place and time. No acute distress.?Normal affect.?? Neck: Normal inspection.? Neck supple.?? CVS: Heart sounds normal. Normal heart rate and rhythm.? Pulses normal.?? Respiratory: No respiratory distress.? Lung sounds clear to auscultation bilaterally?? Abdomen: Soft and non-tender. No rebound tenderness at McBurney's point. Negative psoas sign. Negative Rovsing sign. Negative Yoder sign. No CVAT. Normoactive bowel sounds. No pulsatile mass.?? Skin: Skin warm and dry.? Normal skin color.? Extremities: No lower extremity edema.? Neuro: Moves all extremities spontaneously. Sensation intact bilaterally. Ambulates with normal steady gait. Course Course Course Narrative: This is an RME: Additional HPI, ROS, PE not included below will be deferred to primary provider. RME assessment and note performed by: Fariha Wade PA-C This is a [id number]-female who presents to the ER with complaints of abdominal pain, nausea, chills, weakness since 12pm this afternoon. Reports she is not passing gas. Patient also reports that she has had generalized weakness Plan: Labs, KUB xray 11/25/2024 - 1820 - June approached triage desk reporting that she did have a trip and fall yesterday, patient reports that she is unsure if she hit her head however states that she ?blacked out? for several moments. Will obtain CT head and neck. She is alert and oriented x4, she is speaking full sentences under no acute distress. Reevaluation(s) Reevaluation #1: 11/26/2024 03:00 CT of the abdomen and pelvis revealing fluid-filled small bowel loops suggesting enterocolitis versus ileus, sigmoid colon with extensive diverticular disease and wall thickening. Reduce findings inpatient case with my attending Dr. Duran, she will receive a single dose of Zosyn while in the emergency department will discharge home with Augmentin, clear liquids for the next 24-48 hours and slow progression of bland diet. Medical Decision Making Medical Decision Making MDM Narrative: Patient is an 84-year-old female with past medical history of hyperlipidemia, pulmonary embolism and DVT not anticoagulated, gastritis, anemia, hypertension, GERD, diverticulitis who presents emergency department for evaluation of abdominal pain nausea chills and weakness as per HPI. On evaluation she has diffuse abdominal tenderness notably worse in the epigastric region as well as the mid lower abdomen/left lower quadrant. No rigidity or guarding. She is without signs of systemic toxicity afebrile without tachycardia no hypotension, no tachypnea or hypoxia. Given abdominal exam findings presenting symptoms and history, obtaining CT of the abdomen pelvis for further evaluation of potential diverticulitis. She had serum labs obtained prior to my assumption of care, CBC reveals a mild leukocytosis of 11,900, mild anemia not meeting transfusion criteria, no electrolyte derangement, no KAROL, normal LFTs and lipase, high sensitive troponin below detectable limits. Viral serologies are negative. Had a KUB which revealed a nonobstructive bowel gas pattern. CT of the head and cervical spine is without acute pathology from the fall. Reviewed with patient, symptoms may be secondary to gastrointestinal illness, diverticulitis, or potentially concussion type symptoms after head injury yesterday. Differential Diagnosis Differential Diagnoses: The differential diagnosis associated with the presentation includes (See narrative above) Admission/Observation Consideration of admission/observation: Escalation of care including admission/observation considered (See narrative above ) Lab Data MDM Lab Attestation statement: I reviewed the patient's lab results. 11/25/24 16:52 11/25/24 16:52 Labs: Lab Results 11/25/24 11/25/24 Range/Units 16:17 16:52 WBC 11.9 H (4.8-10.8) X10*3/uL RBC 3.96 L (4.20-5.50) X10*6/uL Hgb 11.8 L (12.0-16.0) g/dl Hct 34.4 L (37.0-47.0) % MCV 86.9 (80.0-98.0) fL MCH 29.8 (27.0-33.0) pg MCHC 34.3 (31.0-35.0) g/dl RDW 13.6 (11.0-16.0) % Plt Count 226 (160-400) X10*3/uL MPV 10.1 (9.4-12.3) fL Immature Gran % (Auto) 0.3 (0.0-0.4) % Neut % (Auto) 75.0 H (45-73) % Lymph % (Auto) 19.6 L (20-40) % [place] % (Auto) 4.5 (2-11) % Eos % (Auto) 0.3 (0-4) % Baso % (Auto) 0.3 (0-2) % Lymph # (Auto) 2.3 (1.2-4.9) X10*3/uL [place] # (Auto) 0.5 (0.1-1.2) X10*3/uL Eos # (Auto) 0.0 (0.0-0.4) X10*3/uL Baso # (Auto) 0.0 (0.0-0.2) X10*3/uL Abs Immat Gran (auto) 0.03 (0.00-0.03) X10*3/uL Absolute Neuts (auto) 8.9 H (2.0-8.3) x10*3/uL Absolute Nucleated RBC 0.000 (0.0-0.012) X10*3/uL Nucleated RBC % (auto) 0.0 (0.0-0.2) /100WBC Sodium 139 (135-145) mmol/L Potassium 4.0 (3.3-5.1) mmol/L Chloride 110 H (96-108) mmol/L Carbon Dioxide 23 (22-29) mmol/L Anion Gap 10 L (12-20) BUN 12 (9-16) mg/dL Creatinine 0.72 (0.5-1.4) mg/dL Estim Creat Clear Calc 43.9 Estimated GFR > 60 Random Glucose 101 (60-115) mg/dL Calcium 10.2 (8.4-10.2) mg/dL Magnesium 1.9 (1.6-2.6) mg/dL Total Bilirubin 0.4 (0.0-1.0) mg/dL AST 29 (5-31) U/L ALT 27 (0-31) U/L Alkaline Phosphatase 73 (39-117) U/L Troponin I High Sens 6.4 (<3.5-17.0) ng/L Total Protein 7.2 (6.5-8.0) g/dL Albumin 4.3 (3.5-5.0) g/dL Lipase 25 (8-78) U/L Influenza Type A (PCR) NEGATIVE (Negative) Influenza Type B (PCR) NEGATIVE (Negative) RSV RNA Qual (PCR) NEGATIVE (Negative) SARS-CoV-2 RNA (RT-PCR) NEGATIVE (Negative) Independent Interpretation I performed an independent interpretation of an: CT Scan (No ICH or skull fracture) Radiology Impression Discussion of test interpretation with radiology: I have reviewed the radiologist's reading. Radiologist Impression: CT head without contrast Comparison: CT/REG/SR - CT HEAD/BRAIN WO IV CON - 10/15/23 19:31 EST Findings: No intra-axial mass, midline shift, hydrocephalus, or acute hemorrhage. There is mild atrophy. There are nonspecific supratentorial white matter hypodensities most suggestive of chronic small-vessel ischemic changes. Atherosclerotic vascular disease There is no sinus or mastoid fluid. The orbits are within normal limits. There is no acute skull fracture. IMPRESSION: 1. No acute intracranial findings. CT cervical spine without contrast Comparison: None Findings: Cervical alignment is maintained. Vertebral body height is maintained. No acute fracture in the cervical spine. Craniocervical junction is intact. Multilevel degenerative changes especially from C4-5 to C6-7. Facet arthropathy. C3-4 mild disc bulge. C4-5 small central disc herniation with calcification and mild canal stenosis. Mild spondylotic disc bulges C5-6 and C6-7. Prevertebral soft tissues within. Atherosclerotic vascular disease. 6 mm hypodense left thyroid lobe nodule. Lung apices are clear IMPRESSION: 1 No acute findings. 2. Nonacute findings as described. 1 view abdomen Comparison: None Findings: Bowel gas pattern is nonobstructive. No pathologic calcifications. Right upper quadrant surgical clips. No acute fractures. Degenerative changes lumbar spine and bilateral hips. IMPRESSION: Nonobstructive bowel gas pattern. IMPRESSION: CT AP w/ IV contrast 1. Fluid-filled loops of small bowel with additional liquid stool throughout the colon. Pattern suggests infectious or inflammatory enterocolitis versus ileus. 2. Continued area of caliber change near the junction of the descending colon and sigmoid colon where there is fairly pronounced diverticular disease of the sigmoid colon. This suggests a retirement site of luminal narrowing without complete obstructive phenomenon. 3. Unchanged right adrenal gland mass. This is unchanged compared to the patient's most distant examination from April 20, 2022. Adrenal adenoma would be favored. However, that can not be definitively determined on this single phase study. Correlation with any known primary malignancy is suggested. Medications Administered Discontinued Medications Generic Name Dose Route Start Last Admin Trade Name Freq PRN Reason Stop Dose Admin Sodium Chloride 1,000 mls @ 999 mls/hr 11/25/24 22:45 11/26/24 02:30 Ns IV 11/25/24 23:45 Infused .Q1H1M DIANE Infusion Iohexol 85 ml 11/26/24 01:22 11/26/24 01:22 Iohexol 350 Mg/Ml 100 Ml Infus..Btl IV 11/26/24 01:23 85 ml ONCE ONE Administration Ondansetron HCl 4 mg 11/25/24 22:40 11/26/24 00:49 Ondansetron Hcl 4 Mg/2 Ml Vial IVPUSH 11/25/24 22:41 4 mg ONCE ONE Administration Discharge Plan Discharge Clinical Impression: Diverticular disease Patient Disposition: Home, Self-Care Additional Instructions: You received a single dose of antibiotics while in the emergency department diverticulitis, I have sent a prescription for Augmentin to your pharmacy to take as prescribed do not skip any doses or stop taking earlier even if you begin to feel better. Over the next 24-48 hours please consumed only clear liquids, aggression to bland diet as tolerated. Introduce a bland diet including crackers, bananas, rice, soup, toast, and boiled vegetables. This may progress to plain baked or boiled chicken or turkey. Avoid dairy products or foods high in fat or grease. Follow-up with your primary care doctor within the next 3 days. Return with any new or worsening symptoms or concerns. Prescriptions: New amoxicillin-pot clavulanate 875-125 mg tablet 1 tab PO BID Qty: 20 0RF No Action metoprolol succinate [Toprol XL] 25 mg tablet extended release 24 hr 25 mg PO DAILY Qty: 30 5RF Rx Instructions: New medication for your heart palpitations gabapentin 300 mg capsule 300 mg PO BID nitroglycerin 0.4 mg tablet, sublingual 0.4 mg sublingual DIRECTED loratadine 10 mg tablet 10 mg PO BEDTIME gabapentin 100 mg Capsule 100 mg PO BEDTIME diclofenac sodium 1 % Gel 2 g TOPICAL BID cyanocobalamin (vitamin B-12) [Vitamin B-12] 1,000 mcg Tablet 1,000 mcg PO DAILY acetaminophen 650 mg tablet extended release 650 mg PO Q8H PRN (Reason: pain) potassium chloride [Klor-Con M10] 10 mEq tablet,ER particles/crystals 10 meq PO BID latanoprost 0.005 % drops 1 drp ophthalmic (eye) BEDTIME rosuvastatin 40 mg tablet 40 mg PO DAILY timolol maleate 0.5 % gel forming solution 1 drp ophthalmic (eye) QAM loperamide 2 mg capsule 2 mg PO Q4H PRN (Reason: loose stool) Qty: 14 0RF Rx Instructions: administer after each loose stool until symptoms controlled; do not exceed 8 mg per 24 hrs nitrofurantoin monohyd/m-cryst [Macrobid] 100 mg capsule 100 mg PO Q12H 5 Days Qty: 10 0RF Rx Instructions: must administer with a meal/food calcium carbonate [Antacid (calcium carbonate)] 200 mg calcium (500 mg) tablet,chewable 500 mg PO TID cholestyramine (with sugar) 4 gram powder 2 g PO DAILY cholecalciferol (vitamin D3) 25 mcg (1,000 unit) capsule 25 mcg PO DAILY amlodipine 5 mg tablet 5 mg PO DAILY Protocol: Hold for SBP< HOLD for SBP < : 90 clonazepam 0.5 mg tablet 0.5 mg PO DAILY Referrals: Feroz Reyes MD [Primary Care Provider] - Print Language: Guamanian
--- NOTE | 2024-11-25 15:35 | ECG_ITS ---
Test Reason : EPIGASTRIC PAIN Blood Pressure : */* mmHG Vent. Rate : 53 BPM Atrial Rate : 53 BPM P-R Int : 184 ms QRS Dur : 74 ms QT Int : 432 ms P-R-T Axes : 42 37 99 degrees QTcB Int : 405 ms Sinus bradycardia Nonspecific T wave abnormality Abnormal ECG When compared with ECG of 31-Aug-2024 15:34, No significant change was found Referred By: Fariha Ramirez Electronically Signed By: MATIAS NDIAYE
[2024-11-25 16:57] LABS: MANUAL DIFF FLAG NO
[2024-11-25 17:00] LABS: Basophils Percent Auto 0.3 % (0-2); Eosinophils Percent Auto 0.3 % (0-4); Hematocrit 34.4 % (37.0-47.0); Hemoglobin 11.8 g/dl (12.0-16.0); Imm Gran Abs Auto 0.03 X10*3/uL (0.00-0.03); Imm Gran Pct Auto 0.3 % (0.0-0.4); Lymphocytes Absolute Auto 2.3 X10*3/uL (1.2-4.9); Lymphocytes Percent Auto 19.6 % (20-40); Mean Corpuscular HGB Conc 34.3 g/dl (31.0-35.0); Mean Corpuscular Hemoglobin 29.8 pg (27.0-33.0); Mean Corpuscular Volume 86.9 fL (80.0-98.0); Mean Platelet Volume 10.1 fL (9.4-12.3); Monocytes Absolute Auto 0.5 X10*3/uL (0.1-1.2); Monocytes Percent Auto 4.5 % (2-11); Neutrophils Absolute Auto 8.9 x10*3/uL (2.0-8.3); Platelet Count 226 X10*3/uL (160-400); Red Blood Count 3.96 X10*6/uL (4.20-5.50); Red Cell Distribution Width 13.6 % (11.0-16.0); White Blood Count 11.9 X10*3/uL (4.8-10.8)
[2024-11-25 17:15] LABS: Lipase 25 U/L (8-78); Magnesium 1.9 mg/dL (1.6-2.6)
[2024-11-25 17:16] LABS: Alanine Aminotransferase 27 U/L (0-31); Albumin Level 4.3 g/dL (3.5-5.0); Alkaline Phosphatase 73 U/L (39-117); Anion Gap 10 (12-20); Aspartate Amino Transferase 29 U/L (5-31); Bilirubin Total 0.4 mg/dL (0.0-1.0); Blood Urea Nitrogen 12 mg/dL (9-16); Calcium 10.2 mg/dL (8.4-10.2); Carbon Dioxide 23 mmol/L (22-29); Chloride 110 mmol/L (96-108); Creatinine Clr Calc Pharmacy 43.9; Estimated Glomerular Filt Rate > 60; Glucose Random 101 mg/dL (60-115); Sodium 139 mmol/L (135-145); Total Protein 7.2 g/dL (6.5-8.0)
[2024-11-25 17:16] LABS: Influenza A PCR NEGATIVE (Negative); Influenza B PCR NEGATIVE (Negative); Resp Syncy Virus RNA Qual PCR NEGATIVE (Negative); SARS COV2 PCR INHOUSE NEGATIVE (Negative)
[2024-11-25 17:20] LABS: Troponin-I High Sensitivity 6.4 ng/L (<3.5-17.0)
--- OUTSIDE RECORDS SUMMARY | 2024-11-25 18:10 | XMS_ITS | Clinical Summary ---
Author Organization [place] [address] [facility] Address [address] [place] [phone] Phone Care Team Providers Care Voice Network Engineer Name Role Phone Feroz Reyes MD Primary Care Provider [phone] Allergies Active Allergy Reactions Criticality Noted Date Comments Latex Itching 10/31/2020 Anjali Oil Itching 10/31/2020 Medications acetaminophen (TYLENOL 8 HOUR) 650 mg 8 hr tablet Take 1 Tablet by mouth every 8 hours as needed for Pain. 4 Active amLODIPine (NORVASC) 5 mg tablet TAKE 1 TABLET BY MOUTH DAILY 4 Active brimonidine (ALPHAGAN P) 0.15 % ophthalmic solution 2 times daily. 4 Active calcium carbonate EX (Antacid Extra-Strength) 300 mg (750 mg) chewable tablet Take 1 Tablet by mouth daily. Active calcium carbonate (CALCIUM 500 ORAL) CALCIUM 500-2.5 MG-MCG CHEW TAB: Take by mouth daily. Active CHOLECALCIFEROL , VITAMIN D3, ORAL Take 1,000 mg by mouth. Active cholestyramine (QUESTRAN) 4 gram powder 1 Active cyanocobalamin (VIT B-12) 1,000 mcg tablet extended release ER tablet Take by mouth daily. Active gabapentin (NEURONTIN) 100 mg capsule TAKE 1 CAPSULE BY MOUTH EVERY NIGHT IN ADDITION TO 300 MG CAPSULE 4 Active diclofenac (VOLTAREN) 1 % topical gel Apply topically 2 times daily. Active gabapentin (NEURONTIN) 300 mg capsule TAKE 1 CAPSULE BY MOUTH TWICE DAILY (in addition to 100 MG capsule at night) 4 Active latanoprost (XALATAN) 0.005 % ophthalmic solution INSTILL 1 DROP IN BOTH EYES EVERY NIGHT AT BEDTIME 4 Active metoprolol succinate (TOPROL-XL) 25 mg 24 hr tablet 1 Tablet daily. 4 Active nitroglycerin (NITROSTAT) 0.[address] 1 Tablet under the tongue every 5 minutes as needed for Chest pain. 3 Active netarsudiL (Rhopressa) 0.02 % drops 4 Active rosuvastatin (CRESTOR) 40 mg tablet Take 1 Tablet by mouth daily. 4 Active timolol (TIMOPTIC-XR) 0.5 % ophthalmic gel-forming 2 times daily. 4 Active lidocaine (LIDODERM) 5 % patch Apply 1 patch topically 1 (one) time each day. 5 Active potassium chloride (KLOR-CON) 10 mEq CR tablet TAKE 1 TABLET BY MOUTH TWICE DAILY 180 tablet 1 5 Active loratadine (CLARITIN) 10 mg tablet Take 1 tablet (10 mg total) by mouth 1 (one) time each day. 90 tablet 1 5 Active loratadine (CLARITIN) 10 mg tablet TAKE 1 TABLET BY MOUTH EVERY DAY 4 11/13/19 25 Discontinu ed(Reorder ) Active Problems Problem Noted Date Diagnosed Date COVID 07/03/2023 Overview (06/15/2024): Covid 07/03/23 PVD (peripheral vascular disease) 02/28/2023 Hypercholesterolemia 12/26/2020 Nephrolithiasis 12/26/2020 Anemia 12/26/2020 Bilateral renal cysts 12/15/2020 Adrenal adenoma, right 12/07/2020 Gastroesophageal reflux disease 10/31/2020 Essential hypertension 10/31/2020 Cervical radiculopathy 10/31/2020 Encounters Date Type Department Care Team Description 11/25/2024 [facility] [address] [place] [address] Feroz Reyes MD Abdominal Pain 11/24/2024 [facility] [address] [place] [address] Feroz Reyes MD shingle shot 11/23/2024 Telephone Internal Medicine [address] [phone] Feroz Reyes MD Referral (Neurology Insurance Referral) 09/28/2024 [facility] [address] [phone] Feroz Reyes MD Shoulder Pain 09/11/2024 10:30 AM EST Office Visit Internal [address] [phone] Feroz Reyes MD PVD (peripheral vascular disease) ([facility]) (Primary Dx); Lightheaded; Essential hypertension 09/02/[address] [address] Feroz Reyes MD provider call back [phone] [facility] [address] [phone] Feroz Reyes MD Hospital Follow-up 08/31/2024 10:30 AM EST Office Visit Internal [address] [phone] Feroz Reyes MD Near syncope (Primary Dx); Lightheaded; Gait instability from Last 3 Months Immunizations Name Administration Dates Next Due Influenza trivalent, 0.5mL ( Fluad) 65yo and older 05/21/2023,06/22/2022,05/26/2021 Pfizer SARS-CoV-2 COVID-19, mRNA, LNP-S, preservative free 08/09/2021 Pneumococcal conjugate 20 va lent (Prevnar 20, PCV 20) 2mo and older 11/16/2022 Td Tetanus diptheria (Tdvax) 7yo and older 11/16 Tdap Tetanus diptheria acell ular pertussis (Boostrix; Adacel) 7yo and older 05/21/2023 Surgical History Surgery Date Site/Laterality Comments HYSTERECTOMY 1979 PROCEDURE: HISTORICAL HYSTERECTOMY OTHER SURGICAL HISTORY PROCEDURE: HISTORICAL COLOSTOMY; COMMENT: khalida colostomy 02/2016 CHOLECYSTECTOMY PROCEDURE: HISTORICAL CHOLECYSTECTOMY; COMMENT: laparoscopic 04/12/2019 CARDIAC CATHETERIZATION PROCEDURE: HISTORICAL CARDIAC CATH CHOLECYSTECTOMY PROCEDURE: IN LAPAROSCOPY SURG CHOLECYSTECTOMY COLONOSCOPY PROCEDURE: HISTORICAL COLONOSCOPY BREAST BIOPSY Right PROCEDURE: BX BREAST; PERC NEEDLE CORE W/IMAG GUID; COMMENT: fna-many yrs ago Medical History Medical History Date Comments Anemia 12/26/2020 DX:Anemia History of DVT (deep vein thrombosis) 12/26/2020 DX:History of DVT (deep vein thrombosis) Nephrolithiasis 12/26/2020 DX:Nephrolithias is Gastroesophageal reflux disease 10/31/2020 DX:Gastroesophageal reflux disease Essential hypertension 10/31/2020 DX:Essent ial hypertension Cervical radiculopathy 10/31/2020 DX:Cervic al radiculopathy Bilateral renal cysts 12/15/2020 DX:Bilater al renal cysts Adrenal adenoma, right 12/07/2020 DX:Adrena l adenoma, right History of diverticulitis 12/26/2020 DX:His tory of diverticulitis Hypercholesterolemia 12/26/2020 DX:Hypercho lesterolemia Bartholin's cyst 11/2021 DX:Bartholin's cyst Family History Medical History Relation Name Comments Thyroid disease Daughter Dementia Mother Hypertension Sister 1 Layla Hypertension Sister 2 clemintina Other: Other Sister 2 clemintina unsure of all m edical problems Hypertension Sister 3 Selam Arthritis Sister 4 Katherine Other: Other Son 1 Lul Kidney issues Thyroid disease Son 1 Lul No Known Problems Son 2 angelica Arthritis Son 3 Quentin arthritis in ba ck Other: Other Son 4 Feroz Hepatitis No Known Problems Son 5 Vicente Relation Name Status Comments Brother Alive Daughter Alive Father Mother Sister 1 Layla Alive Sister 2 clemintina Alive Sister 3 Selam Alive Sister 4 Katherine Alive Son 1 Lul Alive Son 2 angelica Alive Son 3 Quentin Alive Son 4 Feroz Alive Son 5 Vicente Alive Social History Tobacco Use Types Packs/Day Years Used Date Smoking Tobacco: Never Smokeless Tobacco: Never Tobacco Cessation:Counseling Given: Not Answered Alcohol Use Standard Drinks/Week Comments Not Currently 0 (1 standard drink = 0.6 oz pur e alcohol) Comments No Sex and Gender Information Value Date Recorded Sex Assigned at Not on file Legal Sex Female 9:11 PM EST Gender Identity Not on file Sexual Orientation Not on file Obstetrics History Last Filed Vital Signs Vital Sign Reading Time Taken Comments Blood Pressure 122/60 09/11/2024 10:37 AM EST Pulse 56 09/11/2024 10:37 AM EST Temperature - - Respiratory Rate - - Oxygen Saturation - - Inhaled Oxygen Concentration - - Weight 58.8 kg (129 lb 9.6 oz) 09/11/2024 10:37 AM EST Height 147.3 cm (4' 10 ) 09/11/2024 10:37 AM EST Body Mass Index 27.09 09/11/2024 10:37 AM EST Plan of Treatment Upcoming Encounters Date Type Department Care Team (Late st Contact Info) Description 12/04/2024 9:30 AM EDT Consult Internal Medicine - [address] [phone] Kiya Balbuena NP [address] [place] [address] 03/11/2025 9:30 AM EDT Office Visit Internal Medicine - [address] [phone] Feroz Reyes MD [address] [place] [address] 03/16/2025 9:00 AM EDT Appointment [facility] Ultrasound [address] [place] [phone] 03/31/2025 9:30 AM EDT Office Visit Vascular Surgery - [place] [address] [phone] Karol Schafer MD 300 [facility] [place] [address] [place] [address] Health Maintenance Due Date Last Done Comments RSV Immunization Adult Patients (1 - 1-dose 75+ series) 2016 Depression Screening 08/04/2022 Falls Risk Assessment 08/04/2022 Social Influencers of Health Screening 08/04/2022 Medicare Annual Wellness Visit 03/14/2023 03/14/2022 Hypertension/CHF/CAD Annual BMP Blood Test 02/09/2025 02/10/2024, 02/10/2024 Cholesterol Screening (Lipid Panel) 02/09/2029 02/10/2024, 02/10/2024 Osteoporosis Screening (Bone Density Screening) 08/03/2032 08/03/2022 DTaP,Tdap,and Td Vaccines (3 - Td or Tdap) 05/21/2033 05/21/2023, 11/16/2022 Zoster Vaccines Completed 05/15/2022, 03/20/2022 Pneumococcal Vaccine: 50+ Years Completed 11/16/2022, 07/30/2019 COVID-19 Vaccine Completed 06/17/2024, , 11/01/2020, Additional history exists Influenza Vaccine Completed 06/17/2024, , 06/22/2022, Additional history exists HIB Vaccines Aged Out No longer eligi ble based on patient's age to complete this topic HPV Vaccines Aged Out No longer eligi ble based on patient's age to complete this topic Hepatitis A Vaccines Aged Out No long er eligible based on patient's age to complete this topic Hepatitis B Vaccines Aged Out No long er eligible based on patient's age to complete this topic IPV Vaccines Aged Out No longer eligi ble based on patient's age to complete this topic MMR Vaccines Aged Out No longer eligi ble based on patient's age to complete this topic Meningococcal ACWY Vaccine Aged Out N o longer eligible based on patient's age to complete this topic Meningococcal B Vacine Aged Out No lo nger eligible based on patient's age to complete this topic RSV Immunization Patients Under 20 months Aged Out No longer eligible based on patient's age to complete this topic Varicella Vaccines Aged Out No longer eligible based on patient's age to complete this topic Procedures Procedure Name Priority Date/Time Associated Diagnosis Comments HOME HEALTH ORDER 11/12/2024 ANNUAL BMP BLOOD TEST Routine 02/10/2024 LIPID PANEL Routine 02/10/2024 DXA BONE DENSITY STUDY 1+ SITS AXIAL SKEL Routine 08/03/2022 9:21 AM EST Encounter for screening for osteoporosis from Last 3 Months or Most Recently Relevant to Health Maintenance Results * Home Health Order (11/12/2024) Provider Ramya Onbase NURSING ASSESSMENTS Gris l Result * Annual BMP Blood Test (02/10/2024) Pathologist [facility] Annual BMP Blood Test Abstracted Historical Provider HEALTH MAINTENANCE Final Result * Lipid panel (02/10/2024) Pathologist [facility] LDL/HDL Ratio 2 0 - 4 Triglycerides 66 0 - 150 mg/dL Cholesterol 143 0 - 200 mg/dL HDL 84 >=40 mg/dL LDL Cholesterol 46 0 - 100 mg/dL Blood Venous blood specimen / Unknown Historical Provider LAB BLOOD ORDERABLES Gris l Result * DXA BONE DENSITY STUDY 1+ SITS AXIAL SKEL (08/03/2022 9:21 AM EST) Anatomical Region Laterality Modality Bone Densitometr y 07/03/2022 8:44 AM EST Narrative 08/07/2022 8:20 AM EST BONE DENSITY SCAN (DEXA): FINDINGS: Lumbar Spine T-score is -2.3. ?? (SD relative to 20-29 y/o adult) Z-score is 0.5. ??(SD relative to age matched peers) This is considered osteopenia by WHO criteria. Left Hip T-score is -2.3. Z-score is 0.1. This is considered osteopenia by WHO criteria. Comparison exam(s): None. IMPRESSION: IMPRESSION: Osteopenia by WHO criteria. This patient has a 17% risk of major osteoporotic fracture and a 5.4% risk of hip fracture over the next 10 years. (World Health Organization Fracture Risk Assessment) The [facility] Department of Internal Medicine recommends using National Osteoporosis Foundation (NOF) guidelines in treatment decisions related to osteoporosis. NOF guidelines suggest considering treatment for postmenopausal women and men aged 50 or older presenting with the following: History of hip or vertebral fracture. T-score = -2.5 (DXA) at the femoral neck, total hip, or spine, after appropriate evaluation to exclude secondary causes. Low bone mass (T-score between -1.0 and -2.5 at the femoral neck or spine) AND a 10-year probability of a hip fracture = 3% OR a 10-year probability of a major osteoporosis-related fracture = 20% based on the [place]-adapted WHO algorithm Please note that all treatment decisions require clinical judgment and consideration of individual patient factors, including patient preferences, co-morbidities, previous drug use, risk factors not captured in the FRAX model (e.g., frailty, falls, vitamin D deficiency, increased bone turnover, interval significant decline in bone density) and possible under- or over-estimation of fracture risk by FRAX. Optional alternative screening schedule based on will Schaefer., [facility] September 13, 2011 for patients with osteopenia (based on hip BMD T-score) is as follows: * ??advanced osteopenia (T scores -2.00 to -2.49), BMD testing every year * ??moderate osteopenia (T scores -1.50 to -1.99), BMD testing every 5 years mild osteopenia or normal BMD (T scores -1.50 and higher), BMD testing every 15 years Procedure Note Claire Melendez MD - 10/01/2023 BONE DENSITY SCAN (DEXA): FINDINGS: Lumbar Spine T-score is -2.3. (SD relative to 20-29 y/o adult) Z-score is 0.5. (SD relative to age matched peers) This is considered osteopenia by WHO criteria. Left Hip T-score is -2.3. Z-score is 0.1. This is considered osteopenia by WHO criteria. Comparison exam(s): None. IMPRESSION: IMPRESSION: Osteopenia by WHO criteria. This patient has a 17% risk of majorosteoporotic fracture and a 5.4% risk of hip fracture over the next 10 years. (World HealthOrganization Fracture Risk Assessment) [facility] Department of Internal Medicine recommendsusing National Osteoporosis Foundation (NOF) guidelines in treatment decisions related toosteoporosis. NOF guidelines suggest considering treatment for postmenopausal women and menaged 50 or older presenting with the following: History of hip or vertebral fracture. T-score = -2.5 (DXA) at the femoral neck, total hip, or spine, afterappropriate evaluation to exclude secondary causes. Low bone mass (T-score between -1.0 and -2.5 at the femoral neck or spine)AND a 10-year probability of a hip fracture = 3% OR a 10-year probability of a majorosteoporosis-related fracture = 20% based on the [place]-adapted WHO algorithm Please note that all treatment decisions require clinical judgment andconsideration of individual patient factors, including patient preferences, co- morbidities,previous drug use, risk factors not captured in the FRAX model (e.g., frailty, falls, vitaminD deficiency, increased bone turnover, interval significant decline in bone density) andpossible under- or over-estimation of fracture risk by FRAX. Optional alternative screening schedule based on will Schaefer., [place] 2011 for patients with osteopenia (based on hip BMD T-score) is as follows: * advanced osteopenia (T scores -2.00 to -2.49), BMD testing every year * moderate osteopenia (T scores -1.50 to -1.99), BMD testing every 5years mild osteopenia or normal BMD (T scores -1.50 and higher), BMD testingevery 15 years Darius Montoya NP [facility]Hedy DXA PROCEDURES Final Resul t from Last 3 Months or Most Recently Relevant to Health Maintenance Insurance [employer] MEDICAID - [place] Care Teams Voice Network Engineer Relationship Specialty Start Date End Date Feroz Reyes MD [address] [place] [phone] PCP - General Internal Medicine 09/29/20
--- OUTSIDE RECORDS SUMMARY | 2024-11-25 18:10 | XMS_ITS ---
Author Organization [facility] Address [address] [place] [address] Care Team Providers Care Waxing Machine Operator Name Role Phone Feroz Reyes Primary Care Provider Artemio Zuniga [phone] REASON FOR VISIT Please schedule f/u appt with Dr. Blunt Encounters Encounter Location Date Provider Diagnosis [facility] [address] [place] [phone] 01/14/2024 Artemio Blunt Plan Of Treatment No Information Progress Notes * ALEXIS SHUKLA RDOB: [birth year] (83 yo F)Acc No.[id number]:01/14/2024 Patient:?ALEXIS SHUKLA :1940???Age:83 Y???Sex:Female Address:[place], [address] * true * Date:? Generated for Sukhjinder buitrago/Curt/eTransmitting on:?11/25/2024 06:10 PM EDT
--- OUTSIDE RECORDS SUMMARY | 2024-11-25 18:10 | XMS_ITS | Encounter Summary ---
Author Organization [facility] Address [address] [place] [address] Care Team Providers Care Eligibility Worker Name Role Phone Feroz Reyes MD Primary Care Provider [phone] Reason for Referral * Consultation (Routine) - Closed Specialty Diagnoses / Procedures Referred By Lm goldstein Referred To Contact Neurology Diagnoses Tinnitus, bilateral Feroz Reyes MD [address] [place] [address] Phone: tel: fax: Neda Bright NP [address] [place] [address] [place] [address] Phone: tel: fax: Referral ID Status Reason Start Date Expiration Date V isits Requested Visits Authorized [id number] Closed Specialty Services Required 11/17/2024 11/17/2025 6 6 Reason for Visit * Reason Onset Date Comments Referral 11/23/2024 Neurology Insura nce Referral Encounter Details Date Type Department Care Team (Late st Contact Info) Description 11/23/2024 [facility] [address] [place] [phone] Feroz Reyes MD [address] [place] [phone] Referral (Neurology Insurance Referral) Social History Tobacco Use Types Packs/Day Years Used Date Smoking Tobacco: Never Smokeless Tobacco: Never Alcohol Use Standard Drinks/Week Comments Not Currently 0 (1 standard drink = 0.6 oz pur e alcohol) Comments No Sex and Gender Information Value Date Recorded Sex Assigned at Not on file Legal Sex Female 9:11 PM EST Gender Identity Not on file Sexual Orientation Not on file documented as of this encounter Progress Notes * Maral Velez - 11/23/2024 11:48 AM EDT What insurance does the patient have today? Payor: @[email or web address]/@[email or web address]@ Referrals cannot be processed if the insurance is not accurate. If the insurance listed above is NO BILLING INFORMATION FOUND FOR THIS ENCOUNTER then the patients correct insurance must be obtainedand registered in [facility] or their referral can not be processed. Name of person calling to request this referral? Fax Referred To Provider (Include first and last name): Neda Bright NPI (if known): [id number] Order/Specialty requested neurology Chief Complaint (Note: This is not a body part or a procedure): tinnitus of both ears H93.13 Has the patient seen provider for this problem/Dx before? N/A Referred To Provider Address: [address] [place] [address] Dr @ [address] [place], [place] [address]CHAR[place]SE Referred To Provider Referred To Provider Does patient have an appointment scheduled?: no If yes, what is the date of the appointment?: N/A Is this a retro request? Yes 11/17/24 Number of visits requested: 6 Is this appointment related to: MVA or worker compensation? no documented in this encounter Plan of Treatment Upcoming Encounters Date Type Department Care Team (Late st Contact Info) Description 12/04/2024 9:30 AM EDT Consult Internal Medicine - [facility] [address] [place] [address] Kiya Balbuena, ZULEMA [address] [place] [address] 03/11/2025 9:30 AM EDT Office Visit Internal Medicine - [facility] [address] [place] [address] Feroz Reyes MD [address] [place] [address] 03/16/2025 9:00 AM EDT Appoint[facility] Ultrasound [address] [place] [address] 03/31/2025 9:30 AM EDT Office Visit Vascular Surgery - [place] [address] [place] [phone] Karol Schafer MD [address] [address] Scheduled Referrals Name Type Priority Associated Diagnoses Order Schedule Ambulatory referral to Neurology Outpatient Referral Routine Tinnitus, bilateral Expected: 11/23/2024, Expires: 11/23/2025 documented as of this encounter Visit Diagnoses Diagnosis Tinnitus, bilateral- Primary Unspecified tinnitus documented in this encounter Care Teams Eligibility Worker Relationship Specialty Start Date End Date Feroz Reyes MD [address] [place] [phone] PCP - General Internal Medicine 09/29/20 documented as of this encounter
--- OUTSIDE RECORDS SUMMARY | 2024-11-25 18:10 | XMS_ITS ---
Author Organization [facility] Address [address] [place] [address] Care Team Providers Care Timber Cruiser Name Role Phone Feroz Reyes Primary Care Provider Artemio Zuniga [phone] Allergies Allergen (clinical drug ingredient) Drug/Non Drug Allergy documented on EMR Reaction Allergy Type Onset Date Status eggs (uncoded) Unknown Allergy Activ e Anjali anjali (uncoded) Unknown Allergy A ctive Latex LATEX (uncoded) Unknown Allergy Acti ve Medications Medication SIG (Take, Route, Frequency, Duration) Notes Start Date End Date Status Rosuvastatin Calcium 40 MG 1 tablet Oral ly Once a day Active Potassium 1 tab Oral for 14 days Active Timolol Maleate 0.5 % Ophthalmic for 30 Active Metoprolol Tartrate 25 MG 1/2 tablet wit h food Orally Twice a day Active Loratadine 10 MG 1 tablet Orally Once a day for 30 day(s) Active Vitamin B12 Active amLODIPine Besy-Benazepril HCl 2.5-10 MG as directed Orally Active Calcium Active Gabapentin 300 MG 1 tablet 300 with 10 0 in pm Orally Twice a day Active Vitamin D3 Active clonazePAM 0.5 MG Oral for 30 Active Latanoprost 0.005 % Ophthalmic for 25 Active Cholestyramine 4 GM/DOSE USE 1/2 TO 1 SC OOP IN A GLASS OF WATER OR ORANGE JUICE BY MOUTH EVERY DAY OR TWICE DAILY FOR LOOSE AND FREQUENT BOWEL MOVEMENT 'S for 30 prn Not-Taking Brimonidine Tartrate 0.15 % Ophthalmic for 37 Active Rhopressa 0.02 % Ophthalmic for 25 Active Acetaminophen ER 650 MG TAKE 1 TABLET BY MOUTH EVERY 8 HOURS NEEDED FOR PAIN FOR UP TO 10 DAYS. Oral for 10 Active Klor-Con M10 10 MEQ Oral for 30 Active Social History Tobacco Use: Social History Observation Description Date Details (start date - stop date) Never Smoker NA - NA Tobacco Use/Smoking Question Answer Notes Patient is a nonsmoker Alcohol Screen Question Answer Notes Did you have a drink containing alcohol in the p ast year? No Points 0 Interpretation Negative Section Notes: Nonsmoker; no sig alcohol Problems Problem Type SNOMED Code ICD Code Onset Dates Problem Status W/U Status Risk Notes Problem Right lower quadrant pain (141258630) Abdominal pain, RLQ (R10.31) Active confirmed Vital Signs Blood pressure systolic 00 mm Hg 06/09/20 24 Blood pressure diastolic 00 mm Hg 024 Height 58.5 in 06/09/2024 Weight 133 lbs 06/09/2024 BMI 27.32 kg/m2 06/09/2024 Encounters Encounter Location Date Provider Diagnosis [facility] [address] [place] [address] 06/09/2024 Artemio Blunt Abdominal pain, RLQ R10.31 and Bile salt-induced diarrhea K90.89 Assessments Encounter Date Diagnosis (ICD Code) Assessment Notes Treatment Notes Treatment Clinical Notes Section Notes 06/09/2024 Abdominal pain, RLQ (ICD-10 - R10.31) Overall, Alexis appears quite well. She does not seem to be having any worrisome or new GI symptomatology at this time. We did review her colonoscopy with removal of multiple tubular adenomas and I advised her that she would not need any further screening colonoscopies given her age. Her previous issue with diarrhea seems to be well-controlled with her use of cholestyramine and I advised her to continue that either daily or as needed to keep things stable in that regard. In regard to the right lower quadrant discomfort this does not seem particularly problematic for her. It seems that the majority of her discomfort is more in the right lower back area for which she receives the steroid injections periodically. I don't think she needs any particular treatment nor any other workup in regard to the intermittent right lower quadrant discomfort is concerned. Given her good clinical appearance, her clinical history, and a negative CT scan from March, I advised her that we can simply observe things for the time being. As such, I did advise her to see me on a p.r.n. basis. Alexis was comfortable with this plan. Thank you again for allowing me to participate in Alexis's care. I shall continue to keep you advised of her progress as needed. Please do not hesitate to contact me if I can be of any further assistance in the future. 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 She does not seem to be having any worrisome or new GI symptomatology at this time. We did review her colonoscopy with removal of multiple tubular adenomas and I advised her that she would not need any further screening colonoscopies given her age. Her previous issue with diarrhea seems to be well-controlled with her use of cholestyramine and I advised her to continue that either daily or as needed to keep things stable in that regard. In regard to the right lower quadrant discomfort this does not seem particularly problematic for her. It seems that the majority of her discomfort is more in the right lower back area for which she receives the steroid injections periodically. I don't think she needs any particular treatment nor any other workup in regard to the intermittent right lower quadrant discomfort is concerned. Given her good clinical appearance, her clinical history, and a negative CT scan from March, I advised her that we can simply observe things for the time being. As such, I did advise her to see me on a p.r.n. basis. Alexis was comfortable with this plan. Thank you again for allowing me to participate in Alexis's care. I shall continue to keep you advised of her progress as needed. Please do not hesitate to contact me if I can be of any further assistance in the future. Plan Of Treatment Treatment Notes Assessment Notes Bile salt-induced diarrhea Continue the Cholestyramine powder as needed to control any diarrhea Next Appt Details Follow Up: prn, Reason: Progress Notes * ALEXIS SHUKLA RDOB: 2 (83 yo F)Acc No.[id number]:06/09/2024 Progress Notes Patient:?ALEXIS SHUKLA Provider:?Artemio Blunt MD :[id number]???Age:83 Y???Sex:Female D ate:06/09/2024 Address:[facility] [address], [facility] Pcp:Feroz Reyes Subjective: * Chief Complaints: * ??? * HPI: ???incontinence:? I saw Alexis in followup today in regard to further evaluation of her occasional right lower quadrant abdominal discomfort, bile-induced diarrhea, and history of tubular adenomas of the colon. ?I last saw Alexis in December, at which time she underwent a colonoscopy for evaluation of heme-positive stool. This revealed multiple tubular adenomas that were removed but no sign of any malignancy, inflammatory bowel disease, nor microscopic colitis on the biopsies. Since that time she has continued to use her cholestyramine as needed with good control of previous diarrhea that was felt to be related to her previous cholecystectomy and a bile-induced component of diarrhea. She denies any constipation. She enjoys a good appetite for the most part, without any significant heartburn or dysphagia. She denies any jaundice, fevers, nor weight loss. She denies any hematochezia nor melena. ?She does describe intermittent right lower quadrant abdominal discomfort but without any other associated symptoms such as fevers, vomiting, or diarrhea. She does have a fairly chronic right lower back discomfort for which she receives steroid injections with good relief. Her next injection is scheduled for June 26. ?She did have a CT scan of her abdomen in March that describes some stool throughout the colon but without any sign of obstruction, inflammation, nor any other pathology that would cause abdominal pain. * ROS:?General/Constitutional:?Change in appetite?denies.?Chills?denies.?Fatigue?denies.?Ophthalmologic:?Comments?all negative.?ENT:?Comments?all negative.?Respiratory:?hemoptysis?denies.?Cough?denies.?Cardiovascular:?Chest pain?denies.?Orthopnea?denies.?Gastrointestinal:?Comments?See HPI for details.?Genitourinary:?Hematuria?denies.?Dysuria?denies.?Incontinence?admits.?Musculoskeletal:?Painful joints?denies.?Weakness?denies.?Skin:?Itching?denies.?Rash?denies.?Neurologic:?Headache?denies.?Seizures?denies.?Psychiatric:?Comments?all negative.?pt declines flu vaccine. * Medical History:? * Surgical History:?JOSE Surger y for diverticulitis--02/2016 transverse colostomy, low anterior sigmoid resection in August of 2016; colostomy reversed by Dr. Bee later in 2016 Ureteral stent placement on the right in 01/2017--Dr. Castellon Cholecystectomy in 2019 * Hospitalization/Major Diagno stic Procedure:?No Hospitalization History. * Family History:?Father: dece ased.?Mother: , diagnosed with Heart disease.?Siblings: BROTHER AND SISTER, diagnosed with Heart disease.? No colorectal cancer. * Social History:?Tobacco Use:?Tobacco Use/Smoking?Patient is a?nonsmoker.?Drugs/Alcohol:?Alcohol Screen?Did you have a drink containing alcohol in the past year??No,?Points?0,?Interpretation?Negative.?Miscellaneous:?Marital status: . Occupation: retired. ???Nonsmoker; no sig alcohol. * Medications:?TakingVitamin B 12 Vitamin D3 Calcium amLODIPine Besy-Benazepril HCl 2.5-10 MG Capsule as directed Orally Gabapentin 300 MG Capsule 1 tablet 300 with 100 in pm Orally Twice a dayLoratadine 10 MG Tablet 1 tablet Orally Once a dayPotassium 1 tab Oral Rosuvastatin Calcium 40 MG Tablet 1 tablet Orally Once a dayMetoprolol Tartrate 25 MG Tablet 1/2 tablet with food Orally Twice a dayTimolol Maleate 0.5 % Gel Forming Solution Ophthalmic Acetaminophen ER 650 MG Tablet Extended Release TAKE 1 TABLET BY MOUTH EVERY 8 HOURS NEEDED FOR PAIN FOR UP TO 10 DAYS. Oral Klor- Con M10 10 MEQ Tablet Extended Release Oral Rhopressa 0.02 % Solution Ophthalmic Latanoprost 0.005 % Solution Ophthalmic clonazePAM 0.5 MG Tablet Oral Brimonidine Tartrate 0.15 % Solution Ophthalmic Taking Vitamin B12 Taking Vitamin D3 Taking Calcium Taking amLODIPine Besy-Benazepril HCl 2.5-10 MG Capsule as directed Orally Taking Gabapentin 300 MG Capsule 1 tablet 300 with 100 in pm Orally Twice a dayTaking Loratadine 10 MG Tablet 1 tablet Orally Once a dayTaking Potassium 1 tab Oral Taking Rosuvastatin Calcium 40 MG Tablet 1 tablet Orally Once a dayTaking Metoprolol Tartrate 25 MG Tablet 1/2 tablet with food Orally Twice a dayTaking Timolol Maleate 0.5 % Gel Forming Solution Ophthalmic Taking Acetaminophen ER 650 MG Tablet Extended Release TAKE 1 TABLET BY MOUTH EVERY 8 HOURS NEEDED FOR PAIN FOR UP TO 10 DAYS. Oral Taking Klor-Con M10 10 MEQ Tablet Extended Release Oral Taking Rhopressa 0.02 % Solution Ophthalmic Taking Latanoprost 0.005 % Solution Ophthalmic Taking clonazePAM 0.5 MG Tablet Oral Taking Brimonidine Tartrate 0.15 % Solution Ophthalmic Not-Taking/PRNCholestyramine 4 GM/DOSE Powder USE 1/2 TO 1 SCOOP IN A GLASS OF WATER OR ORANGE JUICE BY MOUTH EVERY DAY OR TWICE DAILY FOR LOOSE AND FREQUENT BOWEL MOVEMENT 'S , Notes: prnMedication List reviewed and reconciled with the patientNot-Taking/PRN Cholestyramine 4 GM/DOSE Powder USE 1/2 TO 1 SCOOP IN A GLASS OF WATER OR ORANGE JUICE BY MOUTH EVERY DAY OR TWICE DAILY FOR LOOSE AND FREQUENT BOWEL MOVEMENT 'S , Notes: prnMedication List reviewed and reconciled with the patient * Allergies:?LATEXrosemaryeggs yes[Allergies Verified] Objective: * Vitals:?Wt: 133 lbs, Ht: 58. 5 in, BMI:27.32 Index, BP: 00/00 mm Hg. * Examination: ???General Examination: ?GENERAL APPEARANCE:?pleasant, well nourished, well developed, in no acute distress.?EYES:?sclera non-icteric.?ORAL CAVITY:?mucosa moist.?NECK/THYROID:?no cervical lymphadenopathy, neck supple.?SKIN:?nonjaundiced, no spider angiomata.?HEART:?S1, S2 normal.?LUNGS:?clear to auscultation bilaterally.?ABDOMEN:?normal bowel sounds, no guarding or rigidity, no guarding or rigidity, no masses palpable, soft, nontender, nondistended.?EXTREMITIES:?no edema.?NEUROLOGIC:?alert and oriented.? Assessment: * Assessment: 1.?Bile salt-induced diarrhe a - K90.89 (Primary)?2.?Abdominal pain, RLQ - R10.31? Overall, Alexis appears quite well. She does not seem to be having any worrisome or new GI symptomatology at this time. We did review her colonoscopy with removal of multiple tubular adenomas and I advised her that she would not need any further screening colonoscopies given her age. Her previous issue with diarrhea seems to be well-controlled with her use of cholestyramine and I advised her to continue that either daily or as needed to keep things stable in that regard. In regard to the right lower quadrant discomfort this does not seem particularly problematic for her. It seems that the majority of her discomfort is more in the right lower back area for which she receives the steroid injections periodically. I don't think she needs any particular treatment nor any other workup in regard to the intermittent right lower quadrant discomfort is concerned. Given her good clinical appearance, her clinical history, and a negative CT scan from March, I advised her that we can simply observe things for the time being. As such, I did advise her to see me on a p.r.n. basis. Alexis was comfortable with this plan. Thank you again for allowing me to participate in Alexis's care. I shall continue to keep you advised of her progress as needed. Please do not hesitate to contact me if I can be of any further assistance in the future. Plan: * Treatment: * Procedure Codes:?1036F TOBAC CO NON-KIPIC0716 BP SCR NOT PRFRM REC REASON NOS * Preventive Medicine:? ??Counseling:?Care goal follow-up plan:?Above Normal BMI Follow-up?Giving encouragement to exercise,?BMI management provided?Yes.? ??Urinary Incontinence:?Urinary Incontinence?Assessment:?Present,?Plan of care documented:?Yes,?Type of plan of care:?Lifestyle interventions.? ??Screenings:?Fall Risk Screening?Fall Risk Assessment:?One fall with injury in the past year uses walker /cane,?Screening:?One fall without injury in the past year,?Assessment:?Performed,?Balance-gait assessment:?Observed transfer and walking, Plan of Care:?Documented,?Type of fall plan of care:?Balance, strength and gait training or instruction provided.? * Follow Up:?prn * * Sign off status: Completed true * Provider:?Artemio Blunt MD Date:? 024 Generated for Sukhjinder buitrago/Curt/Sadie on:?11/25/2024 06:10 PM EDT History and Physical Notes * HPI (History of Present Illness) Category Sub-Category Detail Notes Category Not es incontinence I saw Alexis in followup today in regard to further evaluation of her occasional right lower quadrant abdominal discomfort, bile-induced diarrhea, and history of tubular adenomas of the colon. I last saw Alexis in December, at which time she underwent a colonoscopy for evaluation of heme-positive stool. This revealed multiple tubular adenomas that were removed but no sign of any malignancy, inflammatory bowel disease, nor microscopic colitis on the biopsies. Since that time she has continued to use her cholestyramine as needed with good control of previous diarrhea that was felt to be related to her previous cholecystectomy and a bile-induced component of diarrhea. She denies any constipation. She enjoys a good appetite for the most part, without any significant heartburn or dysphagia. She denies any jaundice, fevers, nor weight loss. She denies any hematochezia nor melena. She does describe intermittent right lower quadrant abdominal discomfort but without any other associated symptoms such as fevers, vomiting, or diarrhea. She does have a fairly chronic right lower back discomfort for which she receives steroid injections with good relief. Her next injection is scheduled for June 26. She did have a CT scan of her abdomen in March that describes some stool throughout the colon but without any sign of obstruction, inflammation, nor any other pathology that would cause abdominal pain. Examination Category Sub-Category Detail Notes Category Not es General Examination GENERAL APPEARANCE: pleasant , well nourished, well developed, in no acute distress HEAD: EYES: sclera non-icteric EARS: NOSE: THROAT: NECK/THYROID: no cervical lymphade nopathy, neck supple HEART: S1, S2 normal CHEST: LUNGS: clear to auscultatio n bilaterally ABDOMEN: normal bowel sounds, no guarding or rigidity, no guarding or rigidity, no masses palpable, soft, nontender, nondistended NEUROLOGIC: alert and oriented SKIN: nonjaundiced, no spi scar angiomata EXTREMITIES: no edema PERIPHERAL PULSES: BACK: BREASTS: MUSCULOSKELETAL: MALE GENITOURINARY: LYMPH NODES: RECTAL EXAM: FEMALE GENITOURINARY: ORAL CAVITY: mucosa moist
--- OUTSIDE RECORDS SUMMARY | 2024-11-25 18:10 | XMS_ITS | Clinical Summary ---
Author Organization [facility] Address [address] [place] [address] Care Team Providers Care Vibrator Operator Name Role Phone Feroz Reyes MD Primary Care Provider [phone] Social History Tobacco Use Types Packs/Day Years Used Date Smoking Tobacco: Never Assessed Sex and Gender Information Value Date Recorded Sex Assigned at Not on file Gender Identity Not on file Sexual Orientation Not on file Plan of Treatment Health Maintenance Due Date Last Done Comments COVID-19 Vaccine (#1) 03/01/1941 Depression Screening 1953 Preventative Health Evaluation 1959 DTap / Tdap / Td (1 - Tdap) 1960 Shingrix-Zoster Vaccine (1 of 2) 1991 Fall Risk Assessment 2006 Osteoporosis Screening (DEXA Scan) 2006 Pneumococcal Vaccine (1 of 1 - PCV) 2006 RSV Adult > 60+ Yrs or Pregn ant (1 - 1-dose 75+ series) 2016 Influenza Vaccine (#1) 2024 Hepatitis B Vaccines Aged Out No long er eligible based on patient's age to complete this topic RSV Ped < 20 months Aged Out No longe r eligible based on patient's age to complete this topic Care Teams Vibrator Operator Relationship Specialty Start Date End Date Feroz Reyes MD PCP - General Internal Medicine 11/08/20
--- OUTSIDE RECORDS SUMMARY | 2024-11-25 18:10 | XMS_ITS | Encounter Summary ---
Author Organization [facility] Address [address] [place] [address] Care Team Providers Care Cementer Name Role Phone Feroz Reyes MD Primary Care Provider [phone] Reason for Visit * Reason Onset Date Comments shingle shot 11/24/2024 Encounter Details Date Type Department Care Team (Late st Contact Info) Description 11/24/2024 Telephone Internal Medicine - [address] [phone] Feroz Reyes MD [address] [place] [phone] shingle shot Social History Tobacco Use Types Packs/Day Years [...] as of this encounter Progress Notes * Sara Dias MA - 11/24/2024 2:17 PM EDT Left message to patient to call the office back, I am at extension [phone] * Michela Hickman - 11/24/2024 2:11 PM EDT Pt wants to ask the PCP if it is ok to get the shingle shot. She one done a year ago. documented in this encounter Plan of Treatment Upcoming Encounters Date Type Department Care Team (Late st Contact Info) Description 12/04/2024 9:30 AM EDT Consult Internal Medicine - [address] [phone] Kiya Balbuena NP [address] [place] [phone] 03/11/2025 9:30 AM EDT Office Visit Internal Medicine - [address] [phone] Feroz Reyes MD [address] [place] [phone] 03/16/2025 9:00 AM EDT Appointment [facility] Ultrasound [address] [place] [address] 03/31/2025 9:30 AM EDT Office Visit Vascular Surgery - [place] [address] [address] Karol Schafer MD [address] [phone] documented as of this encounter Visit Diagnoses Not on filedocumented in this encounter Care Teams Cementer Relationship Specialty Start Date End Date Feroz Reyes MD [address] [place] [id number] PCP - General Internal Medicine 09/29/20 documented as of this encounter
--- OUTSIDE RECORDS SUMMARY | 2024-11-25 18:10 | XMS_ITS | Encounter Summary ---
Author Organization [facility] Address [address] [place] [address] Care Team Providers Care Senior Care Assistant Name Role Phone Feroz Reyes MD Primary Care Provider [phone] Reason for Visit * Reason Onset Date Comments Abdominal Pain 11/25/2024 Encounter Details Date Type Department Care Team (Late st Contact Info) Description 11/25/2024 Telephone Internal Medicine - [address] [phone] Feroz Reyes MD [address] [place] [phone] Abdominal Pain Social History Tobacco Use Types Packs/Day Years [...] as of this encounter Progress Notes * Patricia Valencia RN - 11/25/2024 2:21 PM EDT Spoke with the patient stated she usually moves her bowels everyday is unable to move them today. Is not passing gas, feels like she needs to move her bowels but cannot, having stomach pain , bloating and chills feeling nauseous has not vomited. Advised to go to ER to be evaluated. Patient agrees * Nereida Eli - 11/25/2024 2:11 PM EDT Patient call requires triage: Symptoms patient is presenting: stomach cramps, unable to have a bowel movement also having chills How long has patient had these symptoms?: 2 hrs For ALL patients calling to schedule any appointment (routine, sick visit, follow up, consult, etc.) in the outpatient setting please ask the following questions: Do you have fever of higher than 101, sore throat with difficulty swallowing or severe shortness ofbreath? no If YES to any of these above symptoms, send a message to triage and do not book. Red dot. If no, an audio or video visit should be booked. Have you had close contact with someone with Coronavirus in the last 14 days? no Have you traveled abroad? no Have you traveled recently to another state outside of [place], [place], [place], [place], [place], [place], [place]? no o If yes, did you quarantine for 14 days or have a negative covid test? no If yes to any of the above, patient is not to be scheduled in office until after 14 day quarantine or negative covid test. If pain or injury related was it due to an accident at work or from a motor vehicle accident? If yes, date of accident/Injury: No If yes, gather 3rd democrat insurance information Third Democrat Information: not applicable PCP: Feroz Reyes MD Payor: [employer]VANTAGE / [facility] / Product Type: *No Product type* / documented in this encounter Plan of Treatment Upcoming Encounters Date Type Department Care Team (Late st Contact Info) Description 12/04/2024 9:30 AM EDT Consult Internal Medicine - [address] [phone] Kiya Balbuena NP [address] [place] [address] 03/11/2025 9:30 AM EDT Office Visit Internal Medicine - [address] [phone] Feroz Reyes MD [address] [place] [address] 03/16/2025 9:00 AM EDT Appointment [facility] Ultrasound [address] [place] [address] 03/31/2025 9:30 AM EDT Office Visit Vascular Surgery - [place] [address] [phone] Karol Schafer MD [address] [phone] documented as of this encounter Visit Diagnoses Not on filedocumented in this encounter Care Teams Senior Care Assistant Relationship Specialty Start Date End Date Feroz Reyes MD [address] [place] [phone] PCP - General Internal Medicine 09/29/20 documented as of this encounter
--- OUTSIDE RECORDS SUMMARY | 2024-11-25 18:10 | XMS_ITS | Patient Health Record ---
Author Organization [facility] Address [address] [place] [address] Care Team Providers Care Composite Science Teacher Name Role Phone Theo Khan Primary Care Provider Artemio Zuniga [facility] [phone] Allergies Allergen (clinical drug ingredient) Drug/Non Drug Allergy documented on EMR Reaction Allergy Type Onset Date Status eggs (uncoded) Unknown Allergy Activ e Bk bk (uncoded) Unknown Allergy A ctive Latex LATEX (uncoded) Unknown Allergy Acti ve Results Component Value Reference Range Notes Pathology Reviewed date:01/19/2024 10:26:04 PM Interpretation: Performing Lab:[facility], [address] [place] [id number] Notes/Report: Name: Prema Shukla Age/Sex: 83/F : 1940 Unit#: [id number] Attend Dr: Artemio Blunt Re01/06/24 Status : [facility] Dis[facility]: SPEC : [id number] RECD : 01/06/24-1520 STATUS: JUAN LUIS JERONIMO NUM: [id number] JENNY: 01/06/24-[address] [facility] [address]: Artemio Blunt ENTERED: 01/06/24-15 29 SP TYPE: Surgical OTHR DR: THEO KHAN MD ORDERED: HE Stain/15 , Gross Micro L4/6 Diagnosis A. Colon, 40 cm, tanja ypectomy: Fragments of tubular adenoma; negative for high-grade dysplasia or carcinoma. B. Cecum, polypectom y: Fragments of tubular adenoma; negative for high-grade dysplasia or carcinoma. C. Colon, ascending, polypectomies: Fragments of tubular adenomata; negative for high- grade dysplasia or carcinoma. D. Colon, ascending, biopsy: Colonic mucosa within normal limits; negative for microscopic colitis; multiple additional levels examined. E. Colon, transverse , polypectomy: Fragments of tubular adenoma; negative for high- grade dysplasia or carcinoma. F. Colon, 20 cm, polypectomy: - Fragments of tubul ar adenoma; negative for high-grade dysplasia or carcinoma. - One fragment with features of hyperplastic mucosal polyp. Clinical History Pre-Op Dx: Heme + stool Post-Op Dx: Polyps, diverticulosis, hemorrhoids Microscopic Description A-F. Microscopic sec tions reviewed. Material Received A. Polyp at 40 cm B. Cecal polyp C. Ascending colon polyps D. Ascending colon b iopsies, r/o microscopic colitis E. Transverse colon polyp F. Polyp at 20 cm CONTINUED ON NEXT PAGE Name: Prema Shukla Age/Sex: 83/F : 1940 Unit#: [id number] Attend Dr: Artemio Blunt Re01/06/24 Status : [facility] Location: [facility] Disch: SPEC : [id number] RECD : 01/06/24 STATUS: JUAN LUIS JERONIMO NUM: [id number] JENNY: 01/06/24-[address]: Artemio Blunt ENTERED: 01/06/24- 29 SP TYPE: Surgical OTHR DR: THEO KHAN MD ORDERED: HE , Gross Micro L4/6 Gross Description Received in six parts. Part A: Received in formalin labeled ?polyp at 40 cm? are 3 faustin-pink irregular and papular tissue fragments ran ging from 0.1-0.35 cm. submitted in toto in a cassette labeled A. Part B: Received in formalin labeled ?cecal polyp? are 3 faustin and faustin-pink irregular and papular tissue fragm ents ranging from 0.1-0.35 cm, submitted in toto in a cassette labeled B. Part C: Received in formalin labeled ?proximal ascending colon polyps? are multiple faustin and faustin-pink irregular s hards of tissue ranging from minute to 0.35 cm and aggregating 1.0 x 0.9 x 0.25 cm, submitted in toto in a cassette labeled C. Part D: Received in formalin labeled ?ascending colon bx rule out microscopic colitis? are 4 faustin-pink irregular tissue fragments ranging from 0.1-0.2 cm, submitted in toto in a cassette labeled D. Part E: Received in formalin labeled ?transverse colon polyp are several faustin and faustin-pink irregular and papula r tissue fragments ranging from minute to 0.3 cm, submitted in toto in a cassette labeled E. Part F: Received in formalin labeled ?polyp at 20 cm? are 4 faustin and faustin-pink irregular and papular tissue fragm ents ranging from 0.1-0.35 cm, submitted in toto in a cassette labeled F. CEDS Copies To: THEO KHAN MD [address] [facility], [place] [id number] Jose [address] [place] [address] Signed (si gnature on file) Dionicio Giang MD 01/09/24 0916 END OF REPORT Reason For Referral No Information Medications Medication SIG (Take, Route, Frequency, Duration) Notes Start Date End Date Status Vitamin B12 Active Acetaminophen ER 650 MG TAKE 1 TABLET BY MOUTH EVERY 8 HOURS NEEDED FOR PAIN FOR UP TO 10 DAYS. Oral for 10 Active Rosuvastatin Calcium 40 MG 1 tablet Oral ly Once a day Active Potassium 1 tab Oral for 14 days Active Timolol Maleate 0.5 % Ophthalmic for 30 Active Metoprolol Tartrate 25 MG 1/2 tablet wit h food Orally Twice a day Active amLODIPine Besy-Benazepril HCl 2.5-10 MG as directed Orally Active clonazePAM 0.5 MG Oral for 30 Active Calcium Active Latanoprost 0.005 % Ophthalmic for 25 Active Loratadine 10 MG 1 tablet Orally Once a day for 30 day(s) Active Cholestyramine 4 GM/DOSE USE 1/2 TO 1 SC OOP IN A GLASS OF WATER OR ORANGE JUICE BY MOUTH EVERY DAY OR TWICE DAILY FOR LOOSE AND FREQUENT BOWEL MOVEMENT 'S for 30 prn Not-Taking Gabapentin 300 MG 1 tablet 300 with 10 0 in pm Orally Twice a day Active Brimonidine Tartrate 0.15 % Ophthalmic for 37 Active Vitamin D3 Active Rhopressa 0.02 % Ophthalmic for 25 Active Klor-Con M10 10 MEQ Oral for 30 Active Immunizations Vaccine Route Administration Date Status Comme nts Influenza Unknown 06/07/2021 Administered Social History Tobacco Use: Social History Observation Description Date Details (start date - stop date) Never Smoker NA - NA Tobacco Use/Smoking Question Answer Notes Patient is a nonsmoker Alcohol Screen Question Answer Notes Did you have a drink containing alcohol in the p ast year? 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 Problem 460780374 Diverticulosis o f large intestine without hemorrhage (K57.30) Active confirmed Problem 17993829 Heme + stool (R19.5) Active confirmed Problem Right lower quadrant pain (377177577) Abdominal pain, RLQ (R10.31) Active confirmed Problem 336987820 Abnormal barium enema (R93.3) Active confirmed Problem 20096064 Diarrhea, unspecified type (R19.7) Active confirmed Problem 5053647 Colon stricture (K56.69) Active confirmed Problem 24821446 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 Vital Signs Blood pressure diastolic 00 mm Hg 06/09/2024 Height 58.5 in 06/09/2024 Blood pressure systolic 00 mm Hg 06/09/2024 Weight 133 lbs 06/09/2024 BMI 27.32 kg/m2 06/09/2024 Encounters Encounter Location Date Provider Diagnosis [facility] [address], [place] [id number] 01/06/2024 Artemio Blunt Colon polyps K63.5 ; Heme positive stool R19.5 ; Chronic diarrhea K52.9 and Diverticulosis of large intestine without perforation or abscess without bleeding K57.30 [facility] [address] [place] [address] 06/09/2024 Artemio Blunt Abdominal pain, RLQ R10.31 and Bile salt-induced diarrhea K90.89 [facility] [address] [place] [address] 01/14/2024 Artemio Blunt [facility] [address] [place] [address] 04/10/2024 Artemio Blunt Assessments Encounter Date Diagnosis (ICD Code) Assessment Notes Treatment Notes Treatment Clinical Notes Section Notes 01/06/2024 Colon polyps (ICD-10 - K63.5) 01/06/2024 Heme positive stool (ICD-10 - R19.5) 06/09/2024 Abdominal pain, RLQ (ICD-10 - R10.31) Overall, Prema appears quite well. She does not seem [...] to see me on a p.r.n. basis. Prema was comfortable with this plan. Thank you again for allowing me to participate in Prema's care. I shall continue to keep you advised of her progress as needed. Please do not hesitate to contact me if I can be of any further assistance in the future. 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 She does not seem [...] to see me on a p.r.n. basis. Prema was comfortable with this plan. Thank you again for allowing me to participate in Prema's care. I shall continue to keep you advised of her progress as needed. Please do not hesitate to contact me if I can be of any further assistance in the future. 01/06/2024 Chronic diarrhea (ICD-10 - K52.9) 01/06/2024 Diverticulosis of large intestine without perforation or abscess without bleeding (ICD-10 - K57.30) Plan Of Treatment Pending Test Test Name Order Date STOOL WBC 11/06/2019 GIARDIA AG, STOOL EIA 11/06/2019 OVA & PARASITES (O&P) 11/06/2019 CULTURE, STOOL 11/06/2019 C DIFFICILE RFLX PCR 11/06/2019 Future Test Test Name Order Date Colonoscopy with balloon dilation 2016 COLONOSCOPY 10/02/2023 Insurance Providers Payer Name Payer Address Payer Phone Subscriber Number Group Number Insured Name Patient Relationship to Insured Coverage Start Date Coverage End Date [facility] [address] [place] [phone] [id number] PREMA SHUKLA Self - patient is the insured [facility] [address] [place] [phone] [id number] PREMA SHUKLA Self - patient is the insured Medical (General) History Medical History History ICD Code Hypertension Denies LA,DM,CVA,Lung disease,renal dise ase Hyperlipidemia EGD [address] [place]oscopy [place] [address] [place]ton--neg. except for diverticulosis DVT with PE 09/2016--at [facility] Sigmoid diverticulitis in 2015 with surg eries as below Bile-induced diarrhea treated with ellen styramine Negative flexible sigmoidosc opy in 2016. There was no evidence of any anastomotic stricture. Colonoscopy 12/2023 with 6 tu bular adenomas removed; no IBD; bx neg for microscopic colitis Surgical History Surgery Date(Month/Year) [facility] Surgery for diverticulitis-- 02/2016 transverse colostomy, low anterior sigmoid resection in August of 2016; colostomy reversed by Dr. Bee later in 2016 Ureteral stent placement on the right in 01/2017--Dr. Castellon Cholecystectomy in 2019
--- OUTSIDE RECORDS SUMMARY | 2024-11-25 18:11 | XMS_ITS | Clinical Summary ---
Author Organization [facility] [place], Address [address] [place] [address] [place] [address] Phone Care Team Providers Care Ticket Writer Name Role Phone Genaro Herrera Primary Care Provider [phone] Allergies Active Allergy Reactions Criticality Noted Date Comments Latex Itching 10/31/2020 Anjali Oil Itching 10/31/2020 Medications aspirin (ST KATHLEEN) 81 MG EC tablet Take 1 tablet by mouth 1 (one) time each day Active ascorbic acid (VITAMIN C) 500 MG CR capsule Take 500 mg by mouth 1 (one) time each day Active atorvastatin (LIPITOR) 80 MG tablet Take 80 mg by mouth 10/31/2020 Active ergocalciferol 1.25 MG (95575 UT) capsule TAKE 1 CAPSULE BY MOUTH ONCE A WEEK FOR 9 DOSES. 01/05/2021 Active dilTIAZem (TIAZAC) 120 MG 24 hr capsule Take 120 mg by mouth 1 (one) time each day 12/04/2020 Active ferrous sulfate 325 (65 Fe) MG tablet 01/11/2021 Active gabapentin (NEURONTIN) 300 MG capsule 02/03/2021 Active latanoprost (XALATAN) 0.005 % ophthalmic solution 02/11/2021 Active lisinopril 10 MG tablet Take 1 tablet by mouth 1 (one) time each day Active loratadine (CLARITIN) 10 MG tablet Take 10 mg by mouth 1 (one) time each day in the evening 01/05/2021 Active Magnesium 500 MG capsule Take 500 mg by mouth 1 (one) time each day Active nitroglycerin (NITROSTAT) 0.4 MG SL tablet 01/31/2021 Active omeprazole (PriLOSEC) [address] capsule 01/18/2021 Activ e rosuvastatin (Crestor) 40 MG tablet Take 1 tablet by mouth 1 (one) time each day Active spironolactone (ALDACTONE) 25 MG tablet 02/08/2021 Active Active Problems Problem Noted Date Diagnosed Date Anemia of chronic disease 03/31/2021 Chronic kidney disease stage 3 03/31/2021 Nephrolithiasis 12/26/2020 Cyst of kidney 12/15/2020 Essential hypertension 10/31/2020 Family History Medical History Relation Comments Dementia Mother Hypertension Mother Kidney disease Mother Relation Status Comments Father Unknown Mother Alive Social History Tobacco Use Types Packs/Day Years Used Date Smoking Tobacco: Never Alcohol Use Standard Drinks/Week Comments Yes 0 (1 standard drink = 0.6 oz pure alcohol) Alcoholic Drinks/day: Occasional social drink Comments Unknown Sex and Gender Information Value Date Recorded Sex Assigned at Not on file Legal Sex Female 5:02 PM EST Gender Identity Not on file Sexual Orientation Not on file Last Filed Vital Signs Vital Sign Reading Time Taken Comments Blood Pressure 126/66 04/04/2021 10:53 AM EDT Pulse - - Temperature - - Respiratory Rate - - Oxygen Saturation - - Inhaled Oxygen Concentration - - Weight - - Height - - Body Mass Index - - Plan of Treatment Health Maintenance Due Date Last Done Comments Pneumococcal Vaccine: 65+ Ye ars (1 of 2 - PCV) 1946 Influenza Vaccine (#1) 2024 Hepatitis B Vaccine Aged Out No longe r eligible based on patient's age to complete this topic Insurance [employer] Care Teams Ticket Writer Relationship Specialty Start Date End Date Genaro Herrera [address] [place] [phone] PCP - General Internal Medicine 02/16/21
--- OUTSIDE RECORDS SUMMARY | 2024-11-25 18:11 | XMS_ITS ---
Author Organization [facility] Address [address] [place] [address] Care Team Providers Care Rn Ent Name Role Phone Feroz Reyes Primary Care Provider Artemio Zuniga [phone] REASON FOR VISIT full of stool/waiting on CT report/ CT report in pts docs Encounters Encounter Location Date Provider Diagnosis [facility] [address] [place] [address] 04/10/2024 Artemio Blunt Plan Of Treatment No Information Progress Notes * ALEXIS SHUKLA RDOB: [birth year] (83 yo F)Acc No.[id number]:04/10/2024 Patient:?ALEXIS SHUKLA :1940???Age:83 Y???Sex:Female Address:[address] [address], [address] * true * Date:? Generated for Sukhjinder buitrago/Curt/eTransmitting on:?11/25/2024 06:10 PM EDT
[2024-11-25 20:54] VITALS: BP 153/62; PULSE 61; RESP 19; TEMP 36.3; O2SAT 99
[2024-11-25 22:14] VITALS: BP 138/66; PULSE 71; RESP 19; TEMP 36.7; O2SAT 100
--- NOTE | 2024-11-25 23:52 | PC.NURSE ---
unable to obtain IV access at this time. pt a hard stick, multiple RN attempts. provider aware
[2024-11-26] MEDS: 0.9 % Sodium Chloride 1,000 ML 999 ML IV (00:49)
[2024-11-26] MEDS: ondansetron HCL 4 MG/2 ML VIAL IVPUSH (00:49)
--- NOTE | 2024-11-26 01:17 | PC.NURSE ---
U/S IV LAC 20g
[2024-11-26] MEDS: iohexoL 350 MG/ML 100 ML INFUS..BTL 85 ML IV (01:22)
--- NOTE | 2024-11-26 02:31 | PC.NURSE ---
multiple episodes of diarrhea here per pt
[2024-11-26 02:32] VITALS: BP 143/70; PULSE 77; RESP 18; TEMP 36.5; O2SAT 98
[2024-11-26] MEDS: Piperacillin Sodium/Tazobactam 3.375 GM in 0.9 % Sodium Chloride 50 ML IV (03:30)
[2024-11-26 04:38] VITALS: BP 143/70; PULSE 77; RESP 18; TEMP 36.5; O2SAT 98
== END 2024-11-26 04:39 | disposition home or self-care (01) ==
PROVIDERS: Physician Assistant Medical; Emergency Provider Emergency Medicine Emergency Medical Services; PCP Internal Medicine
DX: K57.32 Diverticulitis of large intestine without perforation or abscess without bleeding (principal); R10.2 Pelvic and perineal pain; R11.0 Nausea; R51.9 Headache, unspecified; M54.2 Cervicalgia; R10.13 Epigastric pain; Z03.818 Encounter for observation for suspected exposure to other biological agents ruled out; Z79.899 Other long term (current) drug therapy
CPT/HCPCS: 0241U; 36415; 70450; 72125; 74018; 74177; 80053; 83690; 83735; 84484; 85025; 93005; 96361; 96365; 96375; 99285; J2405; J2543; Q9967

== ENCOUNTER → 2024-11-25 15:35 | Outpatient (BNV) | payer OTHER, SELFPAY | PROVIDERS: Emergency Provider Emergency Medicine Emergency Medical Services; PCP Internal Medicine; Visit Provider Internal Medicine | DX: R00.1 Bradycardia, unspecified (principal) | CPT/HCPCS: 93010 ==

== ENCOUNTER → 2024-11-25 15:35 | Outpatient (BNV) | payer OTHER, SELFPAY | PROVIDERS: PCP Internal Medicine; Visit Provider Specialist | DX: R14.0 Abdominal distension (gaseous) (principal); S09.90XA Unspecified injury of head, initial encounter | CPT/HCPCS: 70450; 72125; 74018 ==

== ENCOUNTER → 2024-11-26 | Outpatient (BNV) | payer OTHER, SELFPAY | PROVIDERS: Emergency Provider Emergency Medicine Emergency Medical Services; PCP Internal Medicine; Visit Provider Radiology Diagnostic Radiology | DX: A09 Infectious gastroenteritis and colitis, unspecified (principal); K57.30 Diverticulosis of large intestine without perforation or abscess without bleeding; D35.01 Benign neoplasm of right adrenal gland | CPT/HCPCS: 74177 ==

== ENCOUNTER 2024-12-01 08:46 | Outpatient (AMB) | payer OTHER, SELFPAY ==
[2024-12-01 08:55] VITALS: BP 130/84; PULSE 63; BMI 25.3
--- NOTE | 2024-12-01 08:55 | MHC.OFFVIS ---
Vital Signs 12/01/24 08:55 Height 4 ft 10 in Weight 121 lb 4.068 oz BMI 25.3 BP 130/84 Blood Pressure Location Lt brachial Position Sitting Pulse 63 Intake Visit Reasons: 1 yr f/up-3day holter Intake Note: 1 year follow-up had ekg at [facility] 11/25 was non cardiac visit c/o leg arm heaviness and fingers tingling Operating Room Surgical Technician Required: No Allergies latex Allergy (Severe, Verified 11/25/24 15:18) Rash Latex Gloves Allergy (Severe, Uncoded 11/25/24 15:18) rash Anjali spice Allergy (Severe, Uncoded 11/25/24 15:18) Rash Medication List - Last Reconciled 12/01/24 by Oscar Valiente MD acetaminophen ER 650 mg PO Q8H PRN amlodipine 5 mg See Protocol PO DAILY amoxicillin-pot clavulanate 875-125 mg 1 tab PO BID calcium carbonate (Antacid (calcium carbonate)) 500 mg PO TID cholecalciferol (vitamin D3) 25 mcg PO DAILY cholestyramine (with sugar) 4 gram 2 grams PO DAILY clonazepam 0.5 mg PO DAILY cyanocobalamin (vitamin B-12) (Vitamin B-12) 1,000 mcg PO DAILY diclofenac sodium 1% 2 grams topical BID gabapentin 300 mg PO BID gabapentin 100 mg PO BEDTIME latanoprost 0.005% 1 drp ophthalmic (eye) BEDTIME loperamide 2 mg PO Q4H PRN loratadine 10 mg PO BEDTIME metoprolol succinate ER (Toprol XL) 25 mg PO DAILY nitrofurantoin monohyd/m-cryst 100 mg (Macrobid) 100 mg PO Q12H 5 days nitroglycerin 0.4 mg sublingual DIRECTED potassium chloride ER (Klor-Con M) 10 mEq PO BID rosuvastatin 40 mg PO DAILY timolol maleate 0.5% 1 drp ophthalmic (eye) QAM HPI Comments Details: Prema comes for follow-up. She says she from cardiac perspective is feeling well. Her palpitations have significantly improved and feels palpitation skipped heartbeat only rarely now on metoprolol. Overall doing well. Blood pressures been well controlled. However she complains of left-sided numbness and has been told that she had a TIA. She is currently not on aspirin therapy. Reviewed MRI/CT scan from last year which shows chronic microangiopathic changes. No focal infarct PFSH Medical History Hx of flexible sigmoidoscopy (~2017) Hx of diverticulitis of colon Hyperlipidemia Paresthesia Dark stools Pulmonary embolism Chest discomfort Abnormal EKG PAC (premature atrial contraction) Renal cyst Gastritis DVT (deep venous thrombosis) (~2017) Anemia HTN (hypertension) GERD (gastroesophageal reflux disease) Surgical History Hx of colonoscopy History of esophagogastroduodenoscopy (EGD) History of laparoscopic cholecystectomy History of colon resection (~2017) Family History Father No problems noted. Mother No problems noted. Social History Household Members: Children Housing: House Are you a primary acute care nurse practitioner to a significant other at home: No Do you presently have visiting nurse or other home services: No Alcohol intake: never Patient Tobacco Use Status: Never used Tobacco Advance Directives Date on File: 10/21/23 service: No Current occupational status: retired Review of Systems Const Denies chills, Denies fatigue, Denies fever(s), Denies frequent falls, Denies weakness, Denies weight gain and Denies weight loss ENT Denies dizziness Card Denies chest pain, Denies leg edema, Denies lightheadedness, Denies palpitations, Denies dyspnea, Denies dyspnea on exertion, Denies orthopnea and Denies other (loss of consciousness) Resp Denies cough, Denies dyspnea and Denies dyspnea on exertion GI Denies hematochezia and Denies change in stool character Musc Denies abnormal gait, Denies muscle weakness, Denies numbness, Denies radiating pain into limb and Denies tingling Neuro Denies abnormal gait, Denies dizziness, Denies frequent falls, Denies numbness, Denies tingling and Denies weakness Endo Denies fatigue and Denies palpitations Physical Exam Vital Signs: Last Vital Signs Pulse 63 12/01/24 08:55 BP 130/84 12/01/24 08:55 BMI result Body Mass Index 25.3 Const General: cooperative, healthy appearing, comfortable and no acute distress Neck Neck: Yes normal visual inspection and Yes no JVD Resp Effort & Inspection: normal respiratory effort Auscultation: clear to auscultation bilaterally, no crackles, no rales, no rhonchi and no wheezes Cardio Jugular venous distension: no JVD Rate: regular rate Rhythm: regular rhythm Heart sounds: S1 normal heart sound present, S2 normal heart sound present, no gallops, no murmurs and no rubs Peripheral pulses: Peripheral pulses 2+ throughout Skin General skin exam: no rashes or lesions noted Extrem General: Yes normal to inspection, No no pedal edema and No calf tenderness Psych Appearance: grossly normal Mental Status: mental status grossly normal Speech and movement: Normal speech and movement present Assessment & Plan Assessment & Plan (1) Cardiac arrhythmia: Code(s): I49.9 - Cardiac arrhythmia, unspecified Category: Medical Plan: Cardiac arrhythmias with mostly frequent PACs and occasional PVCs in the past which was symptomatic. Symptoms have significantly improved on low-dose metoprolol therapy. Continue the same. However she has developed some neurologic symptoms which are concerning in patient with frequent PACs in the past. Atrial fibrillation needs to be ruled out. She was no obvious symptoms related to it. Will suggest a 30 day monitor to assess for the same. If suspicion remains high can consider implantable loop recorder. Meanwhile I have advised her to really start low-dose baby aspirin for neurologic protection given her chronic microangiopathic changes on the imaging. Continue aggressive blood pressure control. (2) HTN (hypertension): Code(s): I10 - Essential (primary) hypertension Category: Medical Qualifiers: Hypertension type: primary hypertension Qualified Code(s): I10 - Essential (primary) hypertension Plan: Blood pressure currently well optimized on current therapy. Importance of good blood pressure control was discussed. Low-salt diet was discussed. Stress mitigation strategies were discussed. Importance of monitoring blood pressure at home and maintain a log was discussed. Target goal blood pressure less than 130/84. Will follow up in the clinic in 1 year's time, sooner p.r.n.. Thank you for allowing me to partake in her care Coding Level of Care Code Est Pt Level 4 (62403) Complex EM visit Add On G2211 Diagnoses Cardiac arrhythmia I49.9 Primary hypertension I10 Hypertension type: primary hypertension
--- OUTSIDE RECORDS SUMMARY | 2024-12-01 09:16 | XMS_ITS | Encounter Summary ---
Author Organization [facility] Address [address] [place] [address] Care Team Providers Care Regional Sales Trainer Name Role Phone Feroz Reyes MD Primary Care Provider [phone] Artmeio Blunt MD Unavailable Unavailable Cornell Castellon MD Unavailable UnavailTamy Gonzales Unavailable Unavailable Oscar Valiente MD Unavailable Unavailable Bi Frank MD Unavailable Unavailable Encounter Details Date Type Department Care Team Description 08/15/2020 Hospital Medical Records [address] [place] [id number] [place] [address] Social History Tobacco Use Types Packs/Day Years Used Date Smoking Tobacco: Never Smokeless Tobacco: Never Alcohol Use Standard Drinks/Week Comments Not Currently 0 (1 standard drink = 0.6 oz pur e alcohol) Alcohol Habits Answer Date Recorded How often do you have a drink containing alcohol ? Never 03/14/2022 How many drinks containing a lcohol do you have on a typical day when you are drinking? Not asked How often do you have six or more drinks on one occasion? Never 03/14/2022 Social Isolation Answer Date Recorded In a typical week, how many times do you talk on the phone with family, friends, or neighbors? More than three times a week 03/14/2022 How often do you get togethe r with friends or relatives? More than three times a week 03/14/2022 How often do you attend chur or caodaism services? Never 03/14/2022 Do you belong to any clubs o r organizations such as yazidism groups, unions, fraternal or athletic groups, or school groups? No 03/14/2022 How often do you attend meet ings of the clubs or organizations you belong to? Never 03/14/2022 Are you now , , , , never or living with a partner? 03/14/2022 Physical Activity Answer Date Recorded On average, how many days pe r week do you engage in moderate to strenuous exercise (like walking fast, running, jogging, dancing, swimming, biking, or other activities that cause a light or heavy sweat)? 1 day 03/14/2022 On average, how many minutes do you engage in exercise at this level? 30 min 03/14/2022 Stress Answer Date Recorded Do you feel stress - tense, restless, nervous, or anxious, or unable to sleep at night because your mind is troubled all the time - these days? Not at all 03/14/2022 Financial Resource Strain Answer Date R ecorded How hard is it for you to pa y for the very basics like food, housing, medical care, and heating? Not hard at all 03/14/2022 Intimate Partner Violence Answer Date R ecorded Within the last year, have y ou been afraid of your partner or ex-partner? No 03/14/2022 Within the last year, have y ou been humiliated or emotionally abused in other ways by your partner or ex-partner? No Within the last year, have y ou been kicked, hit, slapped, or otherwise physically hurt by your partner or ex-partner? Not asked Within the last year, have y ou been raped or forced to have any kind of sexual activity by your partner or ex-partner? No 03/14/2022 Food Insecurity Answer Date Recorded Within the past 12 months, y ou worried that your food would run out before you got money to buy more. Never true 03/14/2022 Within the past 12 months, t he food you bought just didn't last and you didn't have money to get more. Never true 03/14/2022 Transportation Needs Answer Date Record ed In the past 12 months, has l ack of transportation kept you from medical appointments or from getting medications? No 02/24 In the past 12 months, has l ack of transportation kept you from meetings, work, or getting things needed for daily living? No 03/14/2022 Housing Stability Answer Date Recorded In the last 12 months, was t here a time when you were not able to pay the mortgage or rent on time? No 03/14/2022 In the last 12 months, how many places have you lived? 1 03/14/2022 In the last 12 months, was t here a time when you did not have a steady place to sleep or slept in a nursing home (including now)? No 03/14/2022 Sex Assigned at Date Recorded Not on file Job Start Date Occupation Industry Not on file Not on file Not on file documented as of this encounter Plan of Treatment Not on file documented as of this encounter Visit Diagnoses Not on filedocumented in this encounter Care Teams Regional Sales Trainer Relationship Specialty Start Date End Date Feroz Reyes MD [address] [place] [address] PCP - General Internal Medicine 09/29/20 Artemio Blunt MD [address] [place] [address] Specialist Gastroenterology 03/14/22 Cornell Castellon MD [address] [place] [address] Specialist Urology 03/14/22 Tamy Chandler FNP [address] [place] [address] Nurse Practitioner Cardiology 03/14/22 Oscar Valiente MD [address] [place] [address] Specialist Cardiology 03/14/22 Bi Frank MD [address] [place] [address] Specialist Ophthalmology 03/14/22 documented as of this encounter
--- OUTSIDE RECORDS SUMMARY | 2024-12-01 09:16 | XMS_ITS | Encounter Summary ---
Author Organization [facility] Address [address] [place] [address] Care Team Providers Care Sales Team Recruiter Name Role Phone Feroz Reyes MD Primary Care Provider [phone] Artemio Blunt MD Unavailable Unavailable Cornell Castellon MD Unavailable UnavailTamy Gonzales Unavailable Unavailable Oscar Valiente MD Unavailable Unavailable Bi Frank MD Unavailable Unavailable Reason for Visit * Reason Onset Date Comments fall05/06/2023 Encounter Details Date Type Department Care Team Description 05/06/2023 Telephone Adult Medicine [address] [address] Feroz Reyes MD [address] [place] [address] Fall Social History Tobacco Use Types Packs/Day Years [...] 03/14/2022 How often do you attend chur ch or lutheran services? Never 03/14/2022 Do you belong to any clubs o r organizations such as protestant groups, unions, fraternal or athletic groups, or [...] place to sleep or slept in a intermediate (including now)? No 03/14/2022 Sex Assigned at Date Recorded Not on file Job Start Date Occupation Industry Not on file Not on file Not on file COVID-19 Exposure Response Date Recorded In the last 10 days, have yo u been in contact with someone who was confirmed or suspected to have Coronavirus/COVID-19? No / Unsure 04/25/2023 10:04 AM EDT documented as of this encounter Miscellaneous Notes * Telephone Encounter - Kelley Perez R.N. - 05/06/2023 4:43 PM EDT Spoke to pt-reports of missing a step and landing on the floor today with back of head no injuries noted-no open areas or swelling noted. Pt is talking in sentences and coherently. She reports she didn't feel any pain during incident due to putting her hair in a bun. Pt is not on any anticoagulant medcn. Advised to apply ice/cool compress to affected area and monitor for MS changes;callback if any. fyi * Telephone Encounter - Mariola Goddard - 05/06/2023 4:01 PM EDT Symptoms patient is presenting: Patient fell at a cookout today and hit her head right now she is just sore. For ALL patients calling to schedule any appointment (routine, sick visit, follow up, consult, etc.) in the outpatient setting please ask the following questions: ?? Do you have fever of higher than 101, sore throat with difficulty swallowing or severe shortnessof breath? NO If YES to any of these above symptoms, send a message to triage and do not book. Red dot. If no, an audio or video visit should be booked. ?? Have you had close contact with someone with Coronavirus in the last 14 days? NO ?? Have you traveled abroad? NO ?? Have you traveled recently to another state outside of [place], [place], [place], [place], [place], [place], [place]? NO o If yes, did you quarantine for 14 days or have a negative covid test? NO If yes to any of the above, patient is not to be scheduled in office until after 14 day quarantine or negative covid test. If pain or injury related was it due to an accident at work or from a motor vehicle accident? NO If yes, gather 3rd libertarian insurance information Date of accident/Injury: n/a How long has patient had these symptoms?: 1 day PCP: Feroz Reyes Payor: RAS CARE / Plan: O $0 [employer]SystemsRE [id number] / Product Type: [employer] [id number] documented in this encounter Plan of Treatment Not on file documented as of this encounter Visit Diagnoses Not on filedocumented in this encounter Care Teams Sales Team Recruiter Relationship Specialty Start Date End Date Feroz Reyes MD [address] [place] [address] PCP - General Internal Medicine 09/29/20 Artemio Blunt MD [address] [place] [address] Specialist Gastroenterology 03/14/22 Cornell Castellon MD [address] [place] [address] Specialist Urology 03/14/22 Tamy Chandler FNP [address] [place] [address] Nurse Practitioner Cardiology 03/14/22 Oscar Valiente MD [address] [place] [address] Specialist Cardiology 03/14/22 Bi Frank MD [address] [place] [address] Specialist Ophthalmology 03/14/22 documented as of this encounter
--- OUTSIDE RECORDS SUMMARY | 2024-12-01 09:16 | XMS_ITS | Encounter Summary ---
Author Organization [facility] Address [address] [place] [address] Care Team Providers Care Junior Accountant Bookkeeper Name Role Phone Feroz Reyes MD Primary Care Provider [phone] Artemio Blunt MD Unavailable Unavailable Cornell Castellon MD Unavailable UnavailTamy Gonzales Unavailable Unavailable Oscar Valiente MD Unavailable Unavailable Bi Frank MD Unavailable Unavailable Encounter Details Date Type Department Care Team Description 10/04/2020 Release of Information Medical Records [address] [place] [id number] Abstract, Provider Social History Tobacco Use Types Packs/Day Years Used Date Smoking Tobacco: Never Assessed Alcohol Habits Answer Date Recorded How often [...] often do you attend chur ch or denominational services? Never 03/14/2022 Do you belong to any clubs o r organizations such as buddhism groups, unions, fraternal or athletic groups, or [...] place to sleep or slept in a group home (including now)? No 03/14/2022 Sex Assigned at Date Recorded Not on file Job Start Date Occupation Industry Not on file Not on file Not on file documented as of this encounter Plan of Treatment Not on file documented as of this encounter Visit Diagnoses Not on filedocumented in this encounter Care Teams Junior Accountant Bookkeeper Relationship Specialty Start Date End Date Feroz Reyes MD [address] [place] [address] PCP - General Internal Medicine 09/29/20 Artemio Blunt MD [address] [place] [address] Specialist Gastroenterology 03/14/22 Cornell Castellon MD [address] [place] [address] Specialist Urology 03/14/22 Tamy Chandler FNP [address] [place] [address] Nurse Practitioner Cardiology 03/14/22 Oscar Valiente MD [address] [place] [address] Specialist Cardiology 03/14/22 Bi Frank MD [address] [place] [address] Specialist Ophthalmology 03/14/22 documented as of this encounter
--- OUTSIDE RECORDS SUMMARY | 2024-12-01 09:16 | XMS_ITS | Encounter Summary ---
Author Organization [facility] Address [address] [place] [address] Care Team Providers Care Tube Bender Name Role Phone Feroz Reyes MD Primary Care Provider [phone] Reason for Referral * Consultation (Routine) - Closed Specialty Diagnoses / Procedures Referred By Lm t Referred To Contact Neurology Diagnoses Tinnitus, bilateral Feroz Reyes MD [address] [place] [address] Phone: tel: fax: Neda Bright NP [address] [place] [address] [place] [address] Phone: tel: fax: Referral ID Status Reason Start Date Expiration Date V isits Requested Visits Authorized [id number] Closed Specialty Services Required 11/17/2024 11/17/2025 6 6 Reason for Visit * Reason Onset Date Comments Referral 11/23/2024 Neurology Insura nce Referral Encounter Details Date Type Department Care Team (Late st Contact Info) Description 11/23/[facility]24 [facility] [address] [place] [phone] Feroz Reyes MD [address] [place] [address] Referral (Neurology Insurance Referral) Social History Tobacco [...] insurance does the patient have today? Payor: @[email or web address]@/@[email or web address] Referrals cannot be processed if the insurance is not accurate. If the insurance listed above is NO BILLING INFORMATION FOUND FOR THIS ENCOUNTER then the patients correct insurance must be obtainedand registered in [facility] or their referral can not be processed. Name of person calling to request this referral? Fax Referred To Provider (Include first and last name): Neda Bright NPI (if known): [id number] Order/Specialty requested neurology Chief Complaint (Note: This is not a body part or a procedure): tinnitus of both ears H93.13 Has the patient seen provider for this problem/Dx before? N/A Referred To Provider Address: [address] [place] [address] @ [address] [place], [place] [address]CHARISSE Referred To Provider Referred To Provider Does [...] Consult Internal Medicine - [facility] [address] [place] [address] Kiya Balbuena, ZULEMA [address] [facility] [address] 03/11/2025 9:30 AM EDT Office Visit Internal Medicine - [facility] [address] [place] [address] Feroz Reyes MD [address] [place] [address] 03/16/2025 9:00 AM EDT Appointment [facility] Ultrasound [address] [place] [address] 03/31/2025 9:30 AM EDT Office Visit Vascular Surgery - [place] [address] [phone] Karol Schafer MD [address] [address] Scheduled Referrals Name Type Priority Associated Diagnoses Order Schedule Ambulatory referral to Neurology Outpatient Referral Routine Tinnitus, bilateral Expected: 11/23/2024, Expires: 11/23/2025 documented as of this encounter Visit Diagnoses Diagnosis Tinnitus, bilateral- Primary Unspecified tinnitus documented in this encounter Care Teams Tube Bender Relationship Specialty Start Date End Date Feroz Reyes MD [address] [place] [address] PCP - General Internal Medicine 09/29/20 documented as of this encounter
--- OUTSIDE RECORDS SUMMARY | 2024-12-01 09:16 | XMS_ITS | Encounter Summary ---
Author Organization [facility] Address [address] [place] [address] Care Team Providers Care Stave Log Cut Off Saw Operator Name Role Phone Feroz Reyes MD Primary Care Provider [phone] Artemio Blunt MD Unavailable Unavailable Cornell Castellon MD Unavailable UnavailTamy Gonzales Unavailable Unavailable Oscar Valiente MD Unavailable Unavailable Bi Frank MD Unavailable Unavailable Encounter Details Date Type Department Care Team Description 05/13/2023 Orders Only Medical Records [address] [place] [address] Abstract, Provider Social History Tobacco Use Types [...] How often do you attend chur or sikhism services? Never 03/14/2022 Do you belong to any clubs o r organizations such as sikhism groups, unions, fraternal or athletic groups, or [...] place to sleep or slept in a [facility] (including now)? No 03/14/2022 Sex Assigned at Date Recorded Not on file Job Start Date Occupation Industry Not on file Not on file Not on file COVID-19 Exposure Response Date Recorded In the last 10 days, have yo u been in contact with someone who was confirmed or suspected to have Coronavirus/COVID-19? No / Unsure 05/11/2023 10:12 AM EDT documented as of this encounter Plan of Treatment Not on file documented as of this encounter Procedures Procedure Name Priority Date/Time Associated Diagnosis Comments OUTSIDE CT Routine 05/11/2023 documented in this encounter Results * OUTSIDE CT (05/11/2023) Provider Abstract RADIOLOGY documented in this encounter Visit Diagnoses Not on filedocumented in this encounter Care Teams Stave Log Cut Off Saw Operator Relationship Specialty Start Date End Date Feroz Reyes MD [address] [place] [address] PCP - General Internal Medicine 09/29/20 Artemio Blunt MD [address] [place] [address] Specialist Gastroenterology 03/14/22 Cornell Castellon MD [address] [place] [address] Specialist Urology 03/14/22 Tamy Chandler FNP [address] [place] [address] Nurse Practitioner Cardiology 03/14/22 Oscar Valiente MD [address] [place] [address] Specialist Cardiology 03/14/22 Bi Frank MD [address] [place] [address] Specialist Ophthalmology 03/14/22 documented as of this encounter
--- OUTSIDE RECORDS SUMMARY | 2024-12-01 09:16 | XMS_ITS | Encounter Summary ---
Author Organization [facility] Address [address] [place] [address] Care Team Providers Care Lay Out Inspector Name Role Phone Feroz Reyes MD Primary Care Provider [phone] Artemio Blunt MD Unavailable Unavailable Cornell Castellon MD Unavailable UnavailTamy Gonzales Unavailable Unavailable Oscar Valiente MD Unavailable Unavailable Bi Frank MD Unavailable Unavailable Reason for Visit * Reason Comments E-prescribe Rx Request Encounter Details Date Type Department Care Team Description 07/30/2021 Refill Adult Medicine [address] [address] Feroz Reyes MD [address] [place] [address] E-prescribe Rx Request Social History Tobacco Use Types Packs/Day Years Used Date Smoking Tobacco: Never Smokeless Tobacco: Never Alcohol Habits Answer Date Recorded How often [...] week 03/14/2022 How often do you attend [facility] or nondenominational services? Never 03/14/2022 Do you belong to any clubs o r organizations such as taoism groups, unions, fraternal or athletic groups, or [...] place to sleep or slept in a fpc (including now)? No 03/14/2022 Sex Assigned at Date Recorded Not on file Job Start Date Occupation Industry Not on file Not on file Not on file COVID-19 Exposure Response Date Recorded In the last month, have you been in contact with someone who was confirmed or suspected to have Coronavirus / COVID-19? No / Unsure 07/12/2021 8:28 AM EST documented as of this encounter Miscellaneous Notes * Telephone Encounter - Lesley Vaughan M.A. - 07/31/2021 3:14 PM EST Date of last office visit was 07/10/21. Pended appt for 08/04/21 Lab Results Component Value Date NA 140 01/18/2021 K 4.1 01/18/2021 CO2 26 01/18/2021 CL 108 01/18/2021 BUN 16 01/18/2021 CREAT 0.84 01/18/2021 GLU 104 01/18/2021 CA 9.5 01/18/2021 GFR > 60 01/18/2021 * Telephone Encounter - Janina Olivarez - 07/31/2021 3:02 PM EST Patient would like script to be: E-PRESCRIBED/FAXED TO PHARMACY WHEN WAS THE PATIENT'S LAST APPOINTMENT IN ADULT MEDICINE? 07/10/21 WHEN WAS THE LAST TIME THE PATIENT SAW THEIR PCP? Does patient have an upcoming appointment? Yes 08/04/21 (THE MEDICATION REQUESTED IS ON THE MED LIST ABOVE) All of the medications requested were on the CURRENT MEDS list Did you check the Pharmacy information above?: YES Patient wants: 90 -day supply Is this a mail order prescription request ? NO If the refill is from a FAXED refill request what is the RX # listed on the fax? N/A Patients current insurance carrier is: Payor: [facility] / Plan: Diffon $0 Jingit [id number] / Product Type: HMO [id number] documented in this encounter Plan of Treatment Not on file documented as of this encounter Visit Diagnoses Not on filedocumented in this encounter Care Teams Lay Out Inspector Relationship Specialty Start Date End Date Feroz Reyes MD [address] [place] [address] PCP - General Internal Medicine 09/29/20 Artemio Blunt MD [address] [place] [address] Specialist Gastroenterology 03/14/22 Cornell Castellon MD [address] [place] [address] Specialist Urology 03/14/22 Tamy Chandler FNP [address] [place] [address] Nurse Practitioner Cardiology 03/14/22 Oscar Valiente MD [address] [place] [address] Specialist Cardiology 03/14/22 Bi Frank MD [address] [place] [address] Specialist Ophthalmology 03/14/22 documented as of this encounter
--- OUTSIDE RECORDS SUMMARY | 2024-12-01 09:16 | XMS_ITS | Encounter Summary ---
Author Organization [facility] Address [address] [place] [address] Care Team Providers Care Exhibit Specialist Name Role Phone Feroz Reyes MD Primary Care Provider [phone] Artemio Blunt MD Unavailable Unavailable Cornell Castellon MD Unavailable UnavailTamy Gonzales Unavailable Unavailable Oscar Valiente MD Unavailable Unavailable Bi Frank MD Unavailable Unavailable Encounter Details Date Type Department Care Team Description 06/26/2024 Display Maker Report Medical Records [address] [place] [address] Deshawn Rao DO Social History Tobacco Use Types Packs/Day Years [...] How often do you attend chur or christian services? Never 03/14/2022 Do you belong to any clubs o r organizations such as methodist groups, unions, fraternal or athletic groups, or [...] place to sleep or slept in a snf (including now)? No 03/14/2022 Sex Assigned at Date Recorded Not on file Job Start Date Occupation Industry Not on file Not on file Not on file documented as of this encounter Plan of Treatment Not on file documented as of this encounter Visit Diagnoses Not on filedocumented in this encounter Care Teams Exhibit Specialist Relationship Specialty Start Date End Date Feroz Reyes MD [address] [place] [address] PCP - General Internal Medicine 09/29/20 Artemio Blunt MD [address] [place] [address] Specialist Gastroenterology 03/14/22 Cornell Castellon MD [address] [place] [address] Specialist Urology 03/14/22 Tamy Chandler FNP [address] [place] [address] Nurse Practitioner Cardiology 03/14/22 Oscar Valiente MD [address] [place] [address] Specialist Cardiology 03/14/22 Bi Frank MD [address] [place] [address] Specialist Ophthalmology 03/14/22 documented as of this encounter
--- OUTSIDE RECORDS SUMMARY | 2024-12-01 09:16 | XMS_ITS | Encounter Summary ---
Author Organization [facility] Address [address] [place] [address] Care Team Providers Care Investigator Claims Name Role Phone Feroz Reyes MD Primary Care Provider [phone] Artemio Blunt MD Unavailable Unavailable Cornell Castellon MD Unavailable UnavailTamy Gonzales Unavailable Unavailable Oscar Valiente MD Unavailable Unavailable Bi Frank MD Unavailable Unavailable Encounter Details Date Type Department Care Team Description 04/08/2024 Orders Only Adult Medicine [facility] [address] [place] [address] Feroz Reyes MD [address] [place] [address] Abdominal pain, RLQ Social History Tobacco Use Types Packs/Day Years [...] often do you attend chur ch or anabaptist services? Never 03/14/2022 Do you belong to [...] place to sleep or slept in a usp (including now)? No 03/14/2022 Sex Assigned at Date Recorded Not on file Job Start Date Occupation Industry Not on file Not on file Not on file documented as of this encounter Plan of Treatment Not on file documented as of this encounter Procedures Procedure Name Priority Date/Time Associated Diagnosis Comments CT ABD & PELVIS W/O CONTRAST Routine 04/06/2024 Abdominal pain, RLQ documented in this encounter Results * CT ABD & PELVIS W/O CONTRAST (04/06/2024) Feroz Reyes MD CT SCANS Performing Organization Address City/State/[facility] Co de Phone Number [address] documented in this encounter Visit Diagnoses Diagnosis Abdominal pain, RLQ Abdominal pain, right lower quadrant documented in this encounter Care Teams Investigator Claims Relationship Specialty Start Date End Date Feroz Reyes MD [address] [place] [address] PCP - General Internal Medicine 09/29/20 Artemio Blunt MD [address] [place] [address] Specialist Gastroenterology 03/14/22 Cornell Castellon MD [address] [place] [address] Specialist Urology 03/14/22 Tamy Chandler FNP [address] [place] [address] Nurse Practitioner Cardiology 03/14/22 Oscar Valiente MD [address] [place] [address] Specialist Cardiology 03/14/22 Bi Frank MD [address] [place] [address] Specialist Ophthalmology 03/14/22 documented as of this encounter
--- OUTSIDE RECORDS SUMMARY | 2024-12-01 09:16 | XMS_ITS | Encounter Summary ---
Author Organization [facility] Address [address] [place] [address] Care Team Providers Care Apprentice Name Role Phone Feroz Reyes MD Primary Care Provider [phone] Reason for Visit * Reason Onset Date Comments shingle shot 11/24/2024 Encounter Details Date Type Department Care Team (Late st Contact Info) Description 11/24/2024 [facility] [address] [place] [phone] Feroz Reyes MD [address] [place] [address] shingle shot Social History Tobacco Use Types [...] the office back, I am at extension [phone] * Michela Hickman - 11/24/2024 2:11 PM EDT Pt wants to ask the PCP if it is ok to get the shingle shot. She one done a year ago. documented in this encounter Plan of Treatment Upcoming Encounters Date Type Department Care Team (Late st Contact Info) Description 12/04/2024 9:30 AM EDT Consult Internal Medicine - [address] [phone] Kiya Balbuena, ZULEMA [address] [place] [address] 03/11/2025 9:30 AM EDT Office Visit Internal Medicine - [address] [phone] Feroz Reyes MD [address] [place] [address] 03/16/2025 9:00 AM EDT Appointment [facility] Ultrasound [address] [place] [address] 03/31/2025 9:30 AM EDT Office Visit Vascular Surgery - [place] [address] [phone] Karol Schafer MD [address] [address] documented as of this encounter Visit Diagnoses Not on filedocumented in this encounter Care Teams Apprentice Relationship Specialty Start Date End Date Feroz Reyes MD [address] [place] [address] PCP - General Internal Medicine 09/29/20 documented as of this encounter
--- OUTSIDE RECORDS SUMMARY | 2024-12-01 09:16 | XMS_ITS | Clinical Summary ---
Author Organization [facility] Address [address] [place] [address] Care Team Providers Care Wire Rope Sales Representative Name Role Phone Feroz Reyes MD Primary Care Provider [phone] Artemio Blunt MD Unavailable Unavailable Cornell Castellon MD Unavailable UnavailTamy Gonzales Unavailable Unavailable Oscar Valiente MD Unavailable Unavailable Bi Frank MD Unavailable Unavailable Allergies Active Allergy Reactions Severity Noted Date Comments Latex Itching/Pruritus 10/31/2020 Anjali Oil Itching/Pruritus 10/31/2020 Medications Medication Sig Dispensed Refills Start Date End Date Status Diclofenac Sodium 1 % Gel Apply topically 2 times daily. 0 Active cholestyramine (QUESTRAN) 4 GM/DOSE powder 378 g 0 08/04/2021 Active Cholecalciferol (VITAMIN D3 OR) Take 1,000 mg by mouth. 0 Active nitroGLYCERIN (NITROSTAT) 0.[address] 1 Tablet under the tongue every 5 minutes as needed for Chest pain. 30 Tablet 0 09/21/2022 Active Cyanocobalamin (B-12) 1000 MCG Tab CR Take by mouth daily. 0 Active Calcium 500-2.5 MG-MCG Chew Tab Take by mouth daily. 0 Active calcium carbonate (TUMS EX) 750 MG chewable tablet Take 1 Tablet by mouth daily. 0 Active gabapentin (NEURONTIN) 300 MG capsule TAKE 1 CAPSULE BY MOUTH TWICE DAILY (in addition to 100 MG capsule at night) 180 Capsule 1 10/15/2023 Active gabapentin (NEURONTIN) 100 MG capsule TAKE 1 CAPSULE BY MOUTH EVERY NIGHT IN ADDITION TO 300 MG CAPSULE 90 Capsule 1 11/13/2023 Active rosuvastatin (CRESTOR) 40 MG tablet Take 1 Tablet by mouth daily. 90 Tablet 1 12/10/2023 Active timolol (TIMOPTIC-XR) 0.5 % ophthalmic gel-forming 2 times daily. 0 11/29/2023 Active latanoprost (XALATAN) 0.005 % ophthalmic solution INSTILL 1 DROP IN BOTH EYES EVERY NIGHT AT BEDTIME 0 12/01/2023 Active metoprolol (TOPROL-XL) 25 MG 24 hr tablet 1 Tablet daily. 0 01/02/2024 Active acetaminophen (TYLENOL) 650 MG CR tablet Take 1 Tablet by mouth every 8 hours as needed for Pain. 90 Tablet 2 01/16/2024 Active brimonidine (ALPHAGAN) 0.15 % ophthalmic solution 2 times daily. 0 02/07/2024 Active loratadine (CLARITIN) 10 MG tablet TAKE 1 TABLET BY MOUTH EVERY DAY 90 Tablet 1 03/30/2024 Active amlodipine (NORVASC) 5 MG tablet TAKE 1 TABLET BY MOUTH DAILY 90 Tablet 1 03/31/2024 Active potassium chloride SA (K-DUR,KLOR-CON) 10 MEQ tablet TAKE 1 TABLET BY MOUTH TWICE DAILY 180 Tablet 1 03/31/2024 Active amlodipine (NORVASC) 5 MG tablet TAKE 1 TABLET BY MOUTH DAILY 90 Tablet 1 03/31/2024 Active Rhopressa 0.02 % Solution 0 05/08/2024 Active tizanidine (Zanaflex) 4 MG tabletIndications :Pain in both lower extremities Take 1 Tablet by mouth 2 times daily as needed for Muscle spasms for up to 10 days. 30 Tablet 0 05/18/2024 Active atorvastatin (Lipitor) 80 MG tablet Take 1 tablet by mouth daily. 30 tablet 5 06/30/2021 Discontinued Active Problems Problem Noted Date COVID 07/03/2023 Overview: Covid 07/03/23 PVD (peripheral vascular disease) 2022 Anemia 12/26/2020 History of DVT (deep vein thrombosis) Overview: Venous thromboembolism post abdominal surgery for diverticulitis 08/2016 Nephrolithiasis 12/26/2020 History of diverticulitis 12/26/2020 Hypercholesterolemia 12/26/2020 Bilateral renal cysts 12/15/2020 Adrenal adenoma, right 12/07/2020 Essential hypertension 10/31/2020 Cervical radiculopathy 10/31/2020 Gastroesophageal reflux disease 11/01/19 21 Immunizations Name Administration Dates Next Due COVID-19 (Pfizer) Pt Reported 08/09/2021 ,11/01/2020,11/01/2020, 021 Influenza vaccine high dose age 65 and over 05/21/2023,06/22/2022,05/26/2021 PREVNAR 20 11/16/2022 TD (STATE SUPPLIED FOR ADULT S AND CHILDREN) 11/16/2022 Tdap 05/21/2023 Family History Medical History Relation Name Comments Thyroid Disorder Daughter Dementia Mother Hypertension Sister 1 Layla Hypertension Sister 2 clemintina Other Sister 2 clemintina unsure of all m edical problems Hypertension Sister 3 Selam Arthritis Sister 4 Katherine Other Son 1 Lul Kidney issues Thyroid Disorder Son 1 Lul No Known Problems Son 2 angelica Arthritis Son 3 Quentin arthritis in ba ck Other Son 4 Feroz Hepatitis No Known Problems Son 5 Vicente Relation Name Status Comments Brother Alive Daughter Alive Father Mother Sister 1 Lalya Alive Sister 2 clemintina Alive Sister 3 [...] week 03/14/2022 How often do you attend [facility] or confucianism services? Never 03/14/2022 Do you belong to any clubs o r organizations such as catholic groups, unions, fraternal or athletic groups, or [...] place to sleep or slept in a retirement (including now)? No 03/14/2022 Sex Assigned at Date Recorded Not on file Job Start Date Occupation Industry Not on file Not on file Not on file Last Filed Vital Signs Vital Sign Reading Time Taken Comments Blood Pressure 130/77 05/18/2024 10:28 AM EDT au to Pulse 89 05/18/2024 10:28 AM EDT Temperature 36.2 ??C (97.2 ??F) 07/03/2023 2:03 PM ES T Respiratory Rate 16 03/11/2024 9:12 AM EDT Oxygen Saturation 97% 07/03/2023 2:03 PM EST Inhaled Oxygen Concentration - - Weight 62 kg (136 lb 9.6 oz) 05/18/2024 10:28 AM EDT Height 144.8 cm (4' 9 ) 05/18/2024 10:28 AM EDT Body Mass Index 29.56 05/18/2024 10:28 AM EDT Plan of Treatment Health Maintenance Due Date Last Done Comments SHINGLES VACCINE (1 of 2) 1991 DEPRESSION SCREEN 03/14/2023 03/14/2022 FALL RISK ASSESSMENT 03/14/2023 03/14/2022 Covid-19 Vaccine (2022-09 4 season) 2024 08/09/2021, 11/01/2020, 11/01/2020, Additional history exists BONE DENSITY SCREENING 08/03/2024 08/03/2022 MAMMOGRAM 08/22/2024 08/22/2023, 07/26, 05/09/2020 BMI CHECK/ADVISE 08/26/2024 10/11/2023, , 02/07/2023, Additional history exists INFLUENZA (Season Ended) 2025 023, 06/22/2022, 05/26/2021, Additional history exists CHOLESTEROL SCREENING 02/09/2029 02/10/2024 , 11/07/2023, 10/09/2022, Additional history exists DTAP/TDAP/TD (2 - Td or Tdap) 05/21/2033 05/21/2023, 11/16/2022 PNEUMOCOCCAL VACCINE Completed 11/16/2022, 07/30/20 19 Care Teams Wire Rope Sales Representative Relationship Specialty Start Date End Date Feroz Reyes MD [address] [place] [address] PCP - General Internal Medicine 09/29/20 Artemio Blunt MD [address] [place] [address] Specialist Gastroenterology 03/14/22 Cornell Castellon MD [address] [place] [address] Specialist Urology 03/14/22 Tamy Chandler FNP [address] [place] [address] Nurse Practitioner Cardiology 03/14/22 Oscar Valiente MD [address] [place] [address] Specialist Cardiology 03/14/22 Bi Frank MD [address] [place] [address] Specialist Ophthalmology 03/14/22
--- OUTSIDE RECORDS SUMMARY | 2024-12-01 09:16 | XMS_ITS | Encounter Summary ---
Author Organization [facility] Address [address] [place] [address] Care Team Providers Care Business Continuity Analyst Name Role Phone Feroz Reyes MD Primary Care Provider [phone] Artemio Blunt MD Unavailable Unavailable Cornell Castellon MD Unavailable UnavailTamy Gonzales Unavailable Unavailable Oscar Valiente MD Unavailable Unavailable Bi Frank MD Unavailable Unavailable Encounter Details Date Type Department Care Team Description 05/31/2023 Seo Coordinator Report Medical Records [address] [place] [address] Deshawn Rao DO Social History Tobacco Use [...] How often do you attend chur or amish services? Never 03/14/2022 Do you belong to any clubs o r organizations such as sabianism groups, unions, fraternal or athletic groups, or [...] suspected to have Coronavirus/COVID-19? No / Unsure 05/21/2023 1:04 PM EDT documented as of this encounter Plan of Treatment Not on file documented as of this encounter Visit Diagnoses Not on filedocumented in this encounter Care Teams Business Continuity Analyst Relationship Specialty Start Date End Date Feroz Reyes MD [address] [place] [address] PCP - General Internal Medicine 09/29/20 Artemio Blunt MD [address] [place] [address] Specialist Gastroenterology 03/14/22 Cornell Castellon MD [address] [place] [address] Specialist Urology 03/14/22 Tamy Chandler FNP [address] [place] [address] Nurse Practitioner Cardiology 03/14/22 Oscar Valiente MD [address] [place] [address] Specialist Cardiology 03/14/22 Bi Frank MD [address] [place] [address] Specialist Ophthalmology 03/14/22 documented as of this encounter
--- OUTSIDE RECORDS SUMMARY | 2024-12-01 09:16 | XMS_ITS | Encounter Summary ---
Author Organization [facility] Address [address] [place] [address] Care Team Providers Care Chemical Equipment Controller Name Role Phone Feroz Reyes MD Primary Care Provider [phone] Artemio Blunt MD Unavailable Unavailable Cornell Castellon MD Unavailable UnavailTamy Gonzales Unavailable Unavailable Oscar Valiente MD Unavailable Unavailable Bi Frank MD Unavailable Unavailable Encounter Details Date Type Department Care Team Description 05/22/2024 Websphere Administrator Report Medical Records [address] [place] [address] Dennis Topete, AURORAC Social History Tobacco Use Types Packs/Day Years [...] often do you attend [facility] or hinduism services? Never 03/14/2022 Do you belong to any clubs o r organizations such as jew groups, unions, fraternal or athletic groups, or [...] place to sleep or slept in a senior care (including now)? No 03/14/2022 Sex Assigned at Date Recorded Not on file Job Start Date Occupation Industry Not on file Not on file Not on file documented as of this encounter Plan of Treatment Not on file documented as of this encounter Visit Diagnoses Not on filedocumented in this encounter Care Teams Chemical Equipment Controller Relationship Specialty Start Date End Date Feroz Reyes MD [address] [place] [address] PCP - General Internal Medicine 09/29/20 Artemio Blunt MD [address] [place] [address] Specialist Gastroenterology 03/14/22 Cornell Castellon MD [address] [place] [address] Specialist Urology 03/14/22 Tamy Chandler FNP [address] [place] [address] Nurse Practitioner Cardiology 03/14/22 Oscar Valiente MD [address] [place] [address] Specialist Cardiology 03/14/22 Bi Frank MD [address] [place] [address] Specialist Ophthalmology 03/14/22 documented as of this encounter
--- OUTSIDE RECORDS SUMMARY | 2024-12-01 09:16 | XMS_ITS | Clinical Summary ---
Author Organization [place] [address] [facility] Address [address] [facility] [place] [address] Phone Care Team Providers Care Euclid Operator Name Role Phone Feroz Reyes MD Primary Care Provider [phone] Allergies Active Allergy Reactions Criticality Noted Date [...] each day. 90 tablet 1 5 Active ondansetron (ZOFRAN) 4 mg tabletIndicatio ns:Nausea Take 1 tablet (4 mg total) by mouth every 12 (twelve) hours if needed for nausea or vomiting for up to 10 days. 20 tablet 5 12/08/19 25 Active loratadine (CLARITIN) 10 mg tablet TAKE [...] Encounters Date Type Department Care Team Description 11/27/2024 9:45 AM EDT [facility] [phone] Darius Montoya NP Hearing difficulty of both ears (Primary Dx); Diverticulitis; Nausea 11/27/2024 Telephone [facility] [phone] Feroz Reyes MD Referral (EXTERNAL GASTRO ) 11/26/2024 Telephone Internal Medicine [address] [phone] Feroz Reyes MD information needed/appt. 11/26/2024 [facility] [address] [phone] Feroz Reyes MD Hospital Follow-up 11/25/2024 Telephone [facility] [phone] Feroz Reyes MD Abdominal Pain 11/24/2024 Telephone [facility] [phone] Feroz Reyes MD shingle shot 11/23/2024 [facility] [address] [phone] Feroz Reyes MD Referral (Neurology Insurance Referral) 09/28/2024 [facility]phone [facility] [address] [place] [address] Feroz Reyes MD Shoulder Pain 09/11/2024 10:30 AM EST [facility] [address] [place] [address] Feroz Reyes MD PVD (peripheral vascular disease) ([facility]/HCC) (Primary Dx); Lightheaded; Essential hypertension 09/02/2024 Telephone Internal Medicine - [facility] [address] [place] [address] Feroz Reyes MD provider call back from Last 3 Months Immunizations Name Administration [...] CATHETERIZATION PROCEDURE: HISTORICAL CARDIAC CATH CHOLECYSTECTOMY PROCEDURE: [place] LAPAROSCOPY SURG CHOLECYSTECTOMY COLONOSCOPY PROCEDURE: HISTORICAL COLONOSCOPY [...] 1 Lul No Known Problems Son 2 angelcia Arthritis Son 3 Quentin arthritis in ba [...] Sign Reading Time Taken Comments Blood Pressure 127/67 11/27/2024 9:46 AM EDT aut o Pulse 62 11/27/2024 9:46 AM EDT Temperature - - Respiratory Rate - - Oxygen Saturation - - Inhaled Oxygen Concentration - - Weight 56.8 kg (125 lb 3.2 oz) 11/27/2024 9:46 A M EDT Height 147.3 cm (4' 10 ) 11/27/2024 9:46 AM EDT Body Mass Index 26.17 11/27/2024 9:46 AM EDT Plan of Treatment Upcoming Encounters Date Type Department Care Team (Late st Contact Info) Description 12/04/2024 9:30 AM EDT Consult Internal Medicine - [facility] [address] [place], [place] [phone] Kiya Balbuena NP [address] [place], [place] 03/11/2025 9:30 AM EDT [facility] [address] [place], [place] [phone] Feroz Reyes MD [address] [place] [address] 03/16/2025 9:00 AM EDT Appointment [facility] Ultrasound [address] [place] [phone] 03/31/2025 9:30 AM EDT Office Visit Vascular Surgery - [place] [address] [place] [phone] Karol Schafer MD [address] [place] [address] Health Maintenance Due Date Last Done Comments [...] age to complete this topic Meningococcal B Vaccine Aged Out No l onger eligible based on patient's age to complete this topic RSV Immunization Patients Under 20 months Aged Out No longer eligible based on patient's age to complete this topic Varicella Vaccines Aged Out No longer eligible based on patient's age to complete this topic Procedures Procedure Name Priority Date/Time Associated Diagnosis Comments EXTERNAL CT REPORT 11/25/[address] REPORT 11/25/2024 EXTERNAL XRAY REPORT 11/25/2024 EXTERNAL XRAY REPORT 11/25/2024 HOME HEALTH ORDER 11/12/2024 ANNUAL BMP BLOOD TEST Routine 02/10/2024 LIPID PANEL Routine 02/10/2024 DXA BONE DENSITY STUDY 1+ SITS AXIAL SKEL Routine 08/03/2022 9:21 AM EST Encounter for screening for osteoporosis from Last 3 Months or Most Recently Relevant to Health Maintenance Results * External Xray Report (11/25/2024) Only the most recent of2 resultswithin the time period is included. Anatomical Region Laterality Modality Radiographic Cinthya ging Provider [facility] IMG XR PROCEDURES Final Result * External CT Report (11/25/2024) Only the most recent of2 resultswithin the time period is included. Anatomical Region Laterality Modality Computed Tomogra phy Provider [facility] IMG CT PROCEDURES Final Result * Home Health Order (11/12/2024) Provider [facility] NURSING ASSESSMENTS Gris l Result * Annual BMP Blood Test (02/10/2024) Annual BMP Blood Test Abstracted [facility] Provider HEALTH MAINTENANCE Final Result * Lipid panel (02/10/2024) LDL/HDL Ratio 2 0 - 4 Triglycerides 66 0 - 150 mg/dL Cholesterol 143 0 - 200 mg/dL HDL 84 >=40 mg/dL LDL Cholesterol 46 0 - 100 mg/dL Blood Venous blood specimen / Unknown us Historical Provider LAB BLOOD ORDERABLES Gris l [...] (World Health Organization Fracture Risk Assessment) [facility] Department of Internal Medicine recommends using National [...] alternative screening schedule based on will Schaefer., [facility] September 13, 2011 for patients [...] years. (World HealthOrganization Fracture Risk Assessment) [facility] Department of Internal Medicine recommendsusing National Osteoporosis [...] alternative screening schedule based on will Schaefer., NEJMJanuary 2011 for patients with osteopenia (based on hip BMD T-score) is as follows: * advanced osteopenia (T scores -2.00 to -2.49), BMD testing every year * moderate osteopenia (T scores -1.50 to -1.99), BMD testing every 5years mild osteopenia or normal BMD (T scores -1.50 and higher), BMD testingevery 15 years Darius Montoya NP IMG DXA PROCEDURES Final Resul t from Last 3 Months or Most Recently Relevant to Health Maintenance Insurance [employer] MEDICAID - [place] Care Teams Euclid Operator Relationship Specialty Start Date End Date Feroz Reyes MD [address] [place] [address] PCP - General Internal Medicine 09/29/20
--- OUTSIDE RECORDS SUMMARY | 2024-12-01 09:16 | XMS_ITS | Encounter Summary ---
Author Organization [facility] Address [address] [place] [address] Care Team Providers Care Pairer Inspector Name Role Phone Feroz Reyes MD Primary Care Provider [phone] Artemio Blunt MD Unavailable Unavailable Cornell Castellon MD Unavailable UnavailTamy Gonzales Unavailable Unavailable Oscar Valiente MD Unavailable Unavailable Bi Frank MD Unavailable Unavailable Encounter Details Date Type Department Care Team Description 10/16/2023 Hospital Medical Records [address] [place] [id number] [place] [address] Social History Tobacco Use Types Packs/Day Years [...] How often do you attend chur or druze services? Never 03/14/2022 Do you belong to any clubs o r organizations such as jainism groups, unions, fraternal or athletic groups, or [...] place to sleep or slept in a detention (including now)? No 03/14/2022 Sex Assigned at Date Recorded Not on file Job Start Date Occupation Industry Not on file Not on file Not on file documented as of this encounter Plan of Treatment Not on file documented as of this encounter Visit Diagnoses Not on filedocumented in this encounter Care Teams Pairer Inspector Relationship Specialty Start Date End Date Feroz Reyes MD [address] [place] [address] PCP - General Internal Medicine 09/29/20 Artemio Blunt MD [address] [place] [address] Specialist Gastroenterology 03/14/22 Cornell Castellon MD [address] [place] [address] Specialist Urology 03/14/22 Tamy Chandler FNP [address] [place] [address] Nurse Practitioner Cardiology 03/14/22 Oscar Valiente MD [address] [place] [address] Specialist Cardiology 03/14/22 Bi Frank MD [address] [place] [address] Specialist Ophthalmology 03/14/22 documented as of this encounter
--- OUTSIDE RECORDS SUMMARY | 2024-12-01 09:16 | XMS_ITS | Encounter Summary ---
Author Organization [facility] Address [address] [place] [address] Care Team Providers Care Relocation Associate Name Role Phone Feroz Reyes MD Primary Care Provider [phone] Artemio Blunt MD Unavailable Unavailable Cornell Castellon MD Unavailable UnavailTamy Gonzales Unavailable Unavailable Oscar Valiente MD Unavailable Unavailable Bi Frank MD Unavailable Unavailable Encounter Details Date Type Department Care Team Description 04/28/2024 Incoming Correspondence Medical Records [address] [place] [address] Abstract, Provider Social History Tobacco Use Types [...] How often do you attend chur or judaism services? Never 03/14/2022 Do you belong to any clubs o r organizations such as mu-ism groups, unions, fraternal or athletic groups, or [...] place to sleep or slept in a residential (including now)? No 03/14/2022 Sex Assigned at Date Recorded Not on file Job Start Date Occupation Industry Not on file Not on file Not on file documented as of this encounter Plan of Treatment Not on file documented as of this encounter Visit Diagnoses Not on filedocumented in this encounter Care Teams Relocation Associate Relationship Specialty Start Date End Date Feroz Reyes MD [address] [place] [address] PCP - General Internal Medicine 09/29/20 Artemio Blunt MD [address] [place] [address] Specialist Gastroenterology 03/14/22 Cornell Castellon MD [address] [place] [address] Specialist Urology 03/14/22 Tamy Chandler FNP [address] [place] [address] Nurse Practitioner Cardiology 03/14/22 Oscar Valiente MD [address] [place] [address] Specialist Cardiology 03/14/22 Bi Frank MD [address] [place] [address] Specialist Ophthalmology 03/14/22 documented as of this encounter
--- OUTSIDE RECORDS SUMMARY | 2024-12-01 09:16 | XMS_ITS | Encounter Summary ---
Author Organization [facility] Address [address] [place] [address] Care Team Providers Care Terrapin Fisher Name Role Phone Feroz Reyes MD Primary Care Provider [phone] Artemio Blunt MD Unavailable Unavailable Cornell Castellon MD Unavailable UnavailTamy Gonzales Unavailable Unavailable Oscar Valiente MD Unavailable Unavailable Bi Frank MD Unavailable Unavailable Encounter Details Date Type Department Care Team Description 07/26/2023 Orders Only Medical Records [address] [place] [address] Yosvany Mosquera, [employer] Social History Tobacco Use Types Packs/Day [...] How often do you attend chur or hinduism services? Never 03/14/2022 Do you belong to any clubs o r organizations such as hindu groups, unions, fraternal or athletic groups, or [...] place to sleep or slept in a longterm (including now)? No 03/14/2022 Sex Assigned at Date Recorded Not on file Job Start Date Occupation Industry Not on file Not on file Not on file COVID-19 Exposure Response Date Recorded In the last 10 days, have yo u been in contact with someone who was confirmed or suspected to have Coronavirus/COVID-19? No / Unsure 07/03/2023 1:49 PM EST documented as of this encounter Plan of Treatment Not on file documented as of this encounter Procedures Procedure Name Priority Date/Time Associated Diagnosis Comments OUTSIDE CT Routine 07/21/2023 documented in this encounter Results * OUTSIDE CT (07/21/2023) Yosvany Mosquera PA-C RADIOLOGY documented in this encounter Visit Diagnoses Not on filedocumented in this encounter Care Teams Terrapin Fisher Relationship Specialty Start Date End Date Feroz Reyes MD [address] [place] [address] PCP - General Internal Medicine 09/29/20 Artemio Blunt MD [address] [place] [address] Specialist Gastroenterology 03/14/22 Cornell Castellon MD [address] [place] [address] Specialist Urology 03/14/22 Tamy Chandler FNP [address] [place] [address] Nurse Practitioner Cardiology 03/14/22 Oscar Valiente MD [address] [place] [address] Specialist Cardiology 03/14/22 Bi Frank MD [address] [place] [address] Specialist Ophthalmology 03/14/22 documented as of this encounter
--- OUTSIDE RECORDS SUMMARY | 2024-12-01 09:16 | XMS_ITS | Encounter Summary ---
Author Organization [facility] Address [address] [place] [address] Care Team Providers Care Teaching Specialists Name Role Phone Feroz Reyes MD Primary Care Provider [phone] Artemio Blunt MD Unavailable Unavailable Cornell Castellon MD Unavailable UnavailTamy Gonzales Unavailable Unavailable Oscar Valiente MD Unavailable Unavailable Bi Frank MD Unavailable Unavailable Reason for Visit * Reason Comments E-prescribe Rx Request Encounter Details Date Type Department Care Team Description 02/25/2022 Refill Adult Medicine [facility] [address] [place] [address] Darius Montoya, ZULEMA [address] [place] [address] E-prescribe Rx Request Social History Tobacco Use [...] often do you attend chur ch or pentecostal services? Never 03/14/2022 Do you belong to any clubs o r organizations such as yazidi groups, unions, fraternal or athletic groups, or [...] place to sleep or slept in a alf (including now)? No 03/14/2022 Sex Assigned at Date Recorded Not on file Job Start Date Occupation Industry Not on file Not on file Not on file documented as of this encounter Miscellaneous Notes * Telephone Encounter - Ansley Jack M.A. - 02/27/2022 4:03 PM EDT Faxed to pharmacy * Telephone Encounter - Ana Todd M.A. - 02/27/2022 2:48 PM EDT Last Office Visit: 08/16/21, pending appt 03/14/2022 Lab Results Component Value Date NA 142 09/11/2021 K 3.9 09/11/2021 CO2 29 09/11/2021 CL 108 09/11/2021 BUN 12 09/11/2021 CREAT 0.88 09/11/2021 GLU 65 09/11/2021 CA 9.8 09/11/2021 GFR > 60 09/11/2021 * Telephone Encounter - Elena Escobedo - 02/27/2022 2:04 PM EDT Patient would like script to be: E-PRESCRIBED/FAXED TO PHARMACY WHEN WAS THE PATIENT'S LAST APPOINTMENT IN ADULT MEDICINE? 08/16/21 WHEN WAS THE LAST TIME THE PATIENT SAW THEIR PCP? Same as above Does patient have an upcoming appointment? Yes 03/14/22 (THE MEDICATION REQUESTED IS ON THE MED [...] N/A Patients current insurance carrier is: Payor: [facility] / Plan: [employer] $0 [employer] [id number] / Product Type: [employer] [id number] documented in this encounter Plan of Treatment Not on file documented as of this encounter Visit Diagnoses Not on filedocumented in this encounter Care Teams Teaching Specialists Relationship Specialty Start Date End Date Feroz Reyes MD [address] [place] [address] PCP - General Internal Medicine 09/29/20 Artemio Blunt MD [address] [place] [address] Specialist Gastroenterology 03/14/22 Cornell Castellon MD [address] [place] [address] Specialist Urology 03/14/22 Tamy Chandler FNP [address] [place] [address] Nurse Practitioner Cardiology 03/14/22 Oscar Valiente MD [address] [place] [address] Specialist Cardiology 03/14/22 Bi Frank MD [address] [place] [address] Specialist Ophthalmology 03/14/22 documented as of this encounter
--- OUTSIDE RECORDS SUMMARY | 2024-12-01 09:17 | XMS_ITS | Encounter Summary ---
Author Organization [facility] Address [address] [place] [address] Care Team Providers Care Rolled Materials Worker Name Role Phone Feroz Reyes MD Primary Care Provider [phone] Artemio Blunt MD Unavailable Unavailable Cornell Castellon MD Unavailable UnavailTamy Gonzales Unavailable Unavailable Oscar Valiente MD Unavailable Unavailable Bi Frank MD Unavailable Unavailable Encounter Details Date Type Department Care Team Description 06/19/2021 Hospital Medical Records [address] [place] [address] Donny Pate MD Social History Tobacco Use Types Packs/Day Years [...] How often do you attend chur or hoahaoism services? Never 03/14/2022 Do you belong to [...] place to sleep or slept in a [place] [facility] [place] (including now)? No 03/14/2022 Sex Assigned at Date Recorded Not on file Job Start Date Occupation Industry Not on file Not on file Not on file COVID-19 Exposure Response Date Recorded In the last month, have you been in contact with someone who was confirmed or suspected to have Coronavirus / COVID-19? No / Unsure 05/26/2021 8:57 AM EDT documented as of this encounter Plan of Treatment Not on file documented as of this encounter Visit Diagnoses Not on filedocumented in this encounter Care Teams Rolled Materials Worker Relationship Specialty Start Date End Date Feroz Reyes MD [address] [place] [address] PCP - General Internal Medicine 09/29/20 Artemio Blunt MD [address] [place] [address] Specialist Gastroenterology 03/14/22 Cornell Castellon MD [address] [place] [address] Specialist Urology 03/14/22 Tamy Chandler FNP [address] [place] [address] Nurse Practitioner Cardiology 03/14/22 Oscar Valiente MD [address] [place] [address] Specialist Cardiology 03/14/22 Bi Frank MD [address] [place] [address] Specialist Ophthalmology 03/14/22 documented as of this encounter
--- OUTSIDE RECORDS SUMMARY | 2024-12-01 09:17 | XMS_ITS | Encounter Summary ---
Author Organization [facility] Address [address] [place] [address] Care Team Providers Care Applications Sales Representative Name Role Phone Feroz Reyes MD Primary Care Provider [phone] Artemio Blunt MD Unavailable Unavailable Cornell Castellon MD Unavailable UnavailTamy Gonzales Unavailable Unavailable Oscar Valiente MD Unavailable Unavailable Bi Frank MD Unavailable Unavailable Encounter Details Date Type Department Care Team Description 01/31/2024 Train Station Server Report Medical Records [address] [place] [id number] Deshawn Rao DO Social History Tobacco Use [...] How often do you attend chur or jainism services? Never 03/14/2022 Do you belong to any clubs o r organizations such as hinduism groups, unions, fraternal or athletic groups, or [...] place to sleep or slept in a chcf (including now)? No 03/14/2022 Sex Assigned at Date Recorded Not on file Job Start Date Occupation Industry Not on file Not on file Not on file documented as of this encounter Plan of Treatment Not on file documented as of this encounter Visit Diagnoses Not on filedocumented in this encounter Care Teams Applications Sales Representative Relationship Specialty Start Date End Date Feroz Reyes MD [address] [place] [address] PCP - General Internal Medicine 09/29/20 Artemio Blunt MD [address] [place] [address] Specialist Gastroenterology 03/14/22 Cornell Castellon MD [address] [place] [address] Specialist Urology 03/14/22 Tamy Chandler FNP [address] [place] [address] Nurse Practitioner Cardiology 03/14/22 Oscar Valiente MD [address] [place] [address] Specialist Cardiology 03/14/22 Bi Frank MD [address] [place] [address] Specialist Ophthalmology 03/14/22 documented as of this encounter
--- OUTSIDE RECORDS SUMMARY | 2024-12-01 09:17 | XMS_ITS | Encounter Summary ---
Author Organization [facility] Address [address] [place] [address] Care Team Providers Care Tile Shader Name Role Phone Feroz Reyes MD Primary Care Provider [phone] Artemio Blunt MD Unavailable Unavailable Cornell Castellon MD Unavailable UnavailTamy Gonzales Unavailable Unavailable Oscar Valiente MD Unavailable Unavailable Bi Frank MD Unavailable Unavailable Encounter Details Date Type Department Care Team Description 01/08/2024 Motion Study Technician Report Medical Records [address] [place] [address] Abstract, Provider Social History Tobacco Use Types [...] How often do you attend chur or congregational services? Never 03/14/2022 Do you belong to any clubs o r organizations such as restorationism groups, unions, fraternal or athletic groups, or [...] to sleep or slept in a senior living (including now)? No 03/14/2022 Sex Assigned at Date Recorded Not on file Job Start Date Occupation Industry Not on file Not on file Not on file documented as of this encounter Plan of Treatment Not on file documented as of this encounter Visit Diagnoses Not on filedocumented in this encounter Care Teams Tile Shader Relationship Specialty Start Date End Date Feroz Reyes MD [address] [place] [address] PCP - General Internal Medicine 09/29/20 Artemio Blunt MD [address] [place] [address] Specialist Gastroenterology 03/14/22 Cornell Castellon MD [address] [place] [address] Specialist Urology 03/14/22 Tamy Chandler FNP [address] [place] [address] Nurse Practitioner Cardiology 03/14/22 Oscar Valiente MD [address] [place] [address] Specialist Cardiology 03/14/22 Bi Frank MD [address] [place] [address] Specialist Ophthalmology 03/14/22 documented as of this encounter
--- OUTSIDE RECORDS SUMMARY | 2024-12-01 09:17 | XMS_ITS | Encounter Summary ---
Author Organization [facility] Address [address] [place] [address] Care Team Providers Care Division Commander Name Role Phone Feroz Reyes MD Primary Care Provider [phone] Artemio Blunt MD Unavailable Unavailable Cronell Castellon MD Unavailable UnavailTamy Gonzales Unavailable Unavailable Oscar Valiente MD Unavailable Unavailable Bi Frank MD Unavailable Unavailable Encounter Details Date Type Department Care Team Description 11/02/2022 Traffic Warehouse Supervisor Report Medical Records [address] [place] [address] Deshawn Rao DO Social History Tobacco Use [...] How often do you attend chur or yazdanism services? Never 03/14/2022 Do you belong to any clubs o r organizations such as holiness groups, unions, fraternal or athletic groups, or [...] place to sleep or slept in a penitentiary (including now)? No 03/14/2022 Sex Assigned at Date Recorded Not on file Job Start Date Occupation Industry Not on file Not on file Not on file COVID-19 Exposure Response Date Recorded In the last 10 days, have yo u been in contact with someone who was confirmed or suspected to have Coronavirus/COVID-19? No / Unsure 10/08/2022 8:24 AM EST documented as of this encounter Plan of Treatment Not on file documented as of this encounter Visit Diagnoses Not on filedocumented in this encounter Care Teams Division Commander Relationship Specialty Start Date End Date Feroz Reyes MD [address] [place] [address] PCP - General Internal Medicine 09/29/20 Artemio Blunt MD [address] [place] [address] Specialist Gastroenterology 03/14/22 Cornell Castellon MD [address] [place] [address] Specialist Urology 03/14/22 Tamy Chandler FNP [address] [place] [address] Nurse Practitioner Cardiology 03/14/22 Oscar Valiente MD [address] [place] [address] Specialist Cardiology 03/14/22 Bi Frank MD [address] [place] [address] Specialist Ophthalmology 03/14/22 documented as of this encounter
--- OUTSIDE RECORDS SUMMARY | 2024-12-01 09:17 | XMS_ITS | Encounter Summary ---
Author Organization [facility] Address [address] [place] [address] Care Team Providers Care Ripening Room Attendant Name Role Phone Feroz Reyes MD Primary Care Provider [phone] Artemio Blunt MD Unavailable Unavailable Cornell Castellon MD Unavailable UnavailTamy Gonzales Unavailable Unavailable Oscar Valiente MD Unavailable Unavailable Bi Frank MD Unavailable Unavailable Encounter Details Date Type Department Care Team Description 05/04/2022 Telephone Adult Medicine [facility] [address] [place] [address] Sara Sahu PA-C Social History Tobacco Use Types Packs/Day Years [...] week 03/14/2022 How often do you attend [facility] or sabianism services? Never 03/14/2022 Do you belong to any clubs o r organizations such as scientologist groups, unions, fraternal or athletic groups, or [...] suspected to have Coronavirus/COVID-19? No / Unsure 05/03/2022 9:56 AM EDT documented as of this encounter Miscellaneous Notes * Telephone Encounter - Taylor Stallings M.A. - 05/04/2022 9:45 AM EDT .Left a message to call back. Please put call to [phone] or remessage to a-pool * Telephone Encounter - Taylor Stallings M.A. - 05/04/2022 9:45 AM EDT ----- Message from Sara Sahu PA-C sent at 05/04/2022 9:11 AM EDT ----- Please let patient know that both xrays showed arthritis of spine, lower back worse than upper back. It also showed some osteopenia, a condition less severe than osteoporosis, but it does mean that there has been loss of calcium from the bones. This increases the risk for bone fracture. Next time she follows up with her care team, she should discuss the need for a bone density scan for further evaluation of her bones. Meanwhile she should take 1500mg of calcium everyday (by tablets or diet - there are calcium enriched drinks and foods), 1000iu of Vitamin D (or 15 minutes of sun) every day, and regular weight-bearing exercise as tolerated. Continue with naproxen and muscle relaxant as previously directed and physical therapy should also help (order was placed yesterday). documented in this encounter Plan of Treatment Not on file documented as of this encounter Visit Diagnoses Not on filedocumented in this encounter Care Teams Ripening Room Attendant Relationship Specialty Start Date End Date Feroz Reyes MD [address] [place] [address] PCP - General Internal Medicine 09/29/20 Artemio Blunt MD [address] [place] [address] Specialist Gastroenterology 03/14/22 Cornell Castellon MD [address] [place] [address] Specialist Urology 03/14/22 Tamy Chandler FNP [address] [place] [address] Nurse Practitioner Cardiology 03/14/22 Oscar Valiente MD [address] [place] [address] Specialist Cardiology 03/14/22 Bi Frank MD [address] [place] [address] Specialist Ophthalmology 03/14/22 documented as of this encounter
--- OUTSIDE RECORDS SUMMARY | 2024-12-01 09:17 | XMS_ITS | Encounter Summary ---
Author Organization [facility] Address [address] [place] [address] Care Team Providers Care Land Development Project Manager Name Role Phone Feroz Reyes MD Primary Care Provider [phone] Artemio Blunt MD Unavailable Unavailable Cornell Castellon MD Unavailable UnavailTamy Gonzales Unavailable Unavailable Oscar Valiente MD Unavailable Unavailable Bi Frank MD Unavailable Unavailable Encounter Details Date Type Department Care Team Description 11/07/2020 Resource Recovery Engineer Report Medical Records [address] [place] [address] Radha Malin MD [address] [place] [address] [address] [place] [address] Social History Tobacco Use Types Packs/Day Years [...] week 03/14/2022 How often do you attend [facility] or mandaeism services? Never 03/14/2022 Do you belong to any clubs o r organizations such as amish groups, unions, fraternal or athletic groups, or [...] place to sleep or slept in a half-way (including now)? No 03/14/2022 Sex Assigned at Date Recorded Not on file Job Start Date Occupation Industry Not on file Not on file Not on file COVID-19 Exposure Response Date Recorded In the last month, have you been in contact with someone who was confirmed or suspected to have Coronavirus / COVID-19? No / Unsure 10/31/2020 12:41 PM EST documented as of this encounter Plan of Treatment Not on file documented as of this encounter Visit Diagnoses Not on filedocumented in this encounter Care Teams Land Development Project Manager Relationship Specialty Start Date End Date eFroz Reyes MD [address] [place] [address] PCP - General Internal Medicine 09/29/20 Artemio Blunt MD [address] [place] [address] Specialist Gastroenterology 03/14/22 Cornell Castellon MD [address] [place] [address] Specialist Urology 03/14/22 Tamy Chandler FNP [address] [place] [address] Nurse Practitioner Cardiology 03/14/22 Oscar Valiente MD [address] [place] [address] Specialist Cardiology 03/14/22 Bi Frank MD [address] [place] [address] Specialist Ophthalmology 03/14/22 documented as of this encounter
--- OUTSIDE RECORDS SUMMARY | 2024-12-01 09:17 | XMS_ITS | Encounter Summary ---
Author Organization [facility] Address [address] [place] [address] Care Team Providers Care Phlebotomist Prn Name Role Phone Feroz Reyes MD Primary Care Provider [phone] Artemio Blunt MD Unavailable Unavailable Cornell Castellon MD Unavailable UnavailTamy Gonzales Unavailable Unavailable Oscar Valiente MD Unavailable Unavailable Bi Frank MD Unavailable Unavailable Encounter Details Date Type Department Care Team Description 04/04/2021 Fire Crew Specialist Report Medical Records [address] [place] [address] Kenneth Elizabeth MD, MD Social History Tobacco Use Types Packs/Day [...] often do you attend chur ch or church services? Never 03/14/2022 Do you belong to any clubs o r organizations such as spiritism groups, unions, fraternal or athletic groups, or [...] on filedocumented in this encounter Care Teams Phlebotomist Prn Relationship Specialty Start Date End Date Feroz Reyes MD [address] [place] [address] PCP - General Internal Medicine 09/29/20 Artemio Blunt MD [address] [place] [address] Specialist Gastroenterology 03/14/22 Cornell Castellon MD [address] [place] [address] Specialist Urology 03/14/22 Tamy Chandler FNP [address] [place] [address] Nurse Practitioner Cardiology 03/14/22 Oscar Valiente MD [address] [place] [address] Specialist Cardiology 03/14/22 Bi Frank MD [address] [place] [address] Specialist Ophthalmology 03/14/22 documented as of this encounter
--- OUTSIDE RECORDS SUMMARY | 2024-12-01 09:17 | XMS_ITS | Encounter Summary ---
Author Organization [facility] Address [address] [place] [address] Care Team Providers Care Director Biomedical Engineering Name Role Phone Feroz Reyes MD Primary Care Provider [phone] Artemio Blunt MD Unavailable Unavailable Cornell Castellon MD Unavailable UnavailTamy Gonzales Unavailable Unavailable Oscar Valiente MD Unavailable Unavailable Bi Frank MD Unavailable Unavailable Reason for Visit * Reason Onset Date Comments Prior Authorization 05/14/2022 Encounter Details Date Type Department Care Team Description 05/14/2022 Telephone Adult Medicine [address] [address] Feroz Reyes MD [address] [place] [address] Prior Authorization Social History Tobacco Use Types Packs/Day Years [...] often do you attend chur ch or yazidi services? Never 03/14/2022 Do you belong to any clubs o r organizations such as faith groups, unions, fraternal or athletic groups, or [...] place to sleep or slept in a fdc (including now)? No 03/14/2022 Sex Assigned at [...] encounter Miscellaneous Notes * Telephone Encounter - Iram Yan M.A. - 07/27/2022 11:08 AM EST MED DENIED WITH DX IN PTS CHART PER PROVIDER MED DISCONT Completed course of treatment CDUGA * Telephone Encounter - Iram Yan M.A. - 07/26/2022 2:35 PM EST Auth was denied due to pt dx given Changed dx and re submitted cduga * Telephone Encounter - Tresa Kevin M.A. - 06/29/2022 3:31 PM EDT Fax received looking for more information. Form completed and faxed back today * Telephone Encounter - Tresa Kevin M.A. - 06/29/2022 1:26 PM EDT Prior authorization was looking for more information , Redone on cover my meds today * Telephone Encounter - Tresa Kevin M.A. - 05/14/2022 10:45 AM EDT Prior authorization for the cyclobenzaprine was completed today on cover my meds Dx code M54.6 Chornic midline thoracic back pain * Telephone Encounter - Maral Alejo - 05/14/2022 9:20 AM EDT Prior Authorization for Medication-do not complete and send this encounter unless you have the fax from the pharmacy. Is this a Cover My Meds request: Yes -- Walker Code [id number] Name of Medication cyclobenzaprine (FLEXERIL) 5 MG tablet Dose of Medication 5MG What is the RX # from the faxed refill? NA How does patient take this med? Take 1 Tablet by mouth 3 times daily as needed for Muscle spasms What Pharmacy did the fax come from: [facility] Pharmacy fax #: [phone] documented in this encounter Plan of Treatment Not on file documented as of this encounter Visit Diagnoses Not on filedocumented in this encounter Care Teams Director Biomedical Engineering Relationship Specialty Start Date End Date Feroz Reyes MD [address] [place] [address] PCP - General Internal Medicine 09/29/20 Artemio Blunt MD [address] [place] [address] Specialist Gastroenterology 03/14/22 Cornell Castellon MD [address] [place] [address] Specialist Urology 03/14/22 Tamy Chandler FNP [address] [place] [address] Nurse Practitioner Cardiology 03/14/22 Oscar Valiente MD [address] [place] [address] Specialist Cardiology 03/14/22 Bi Frank MD [address] [place] [address] Specialist Ophthalmology 03/14/22 documented as of this encounter
--- OUTSIDE RECORDS SUMMARY | 2024-12-01 09:17 | XMS_ITS ---
Author Organization [facility] Address [address] [place] [address] Care Team Providers Care Drilling Foreman Name Role Phone Feroz Reyes Primary Care Provider Artemio Zuniga [phone] REASON FOR VISIT full of stool/waiting on CT report/ CT report in pts docs Encounters Encounter Location Date Provider Diagnosis [facility] [address] [place] [phone] 04/10/2024 Artemio Blunt Plan Of Treatment No Information Progress Notes * ALEXIS SHUKLA RDOB: [birth year] (83 yo F)Acc No.[id number]:04/10/2024 Patient:?ALEXIS SHUKLA :1940???Age:83 Y???Sex:Female Address:[address] [address] [place] [address], [address] * true * Date:? Generated for Sukhjinder buitrago/Curt/eTransmitting on:?12/01/2024 09:16 AM EDT
--- OUTSIDE RECORDS SUMMARY | 2024-12-01 09:17 | XMS_ITS | Encounter Summary ---
Author Organization [facility] Address [address] [place] [address] Care Team Providers Care Lumpia Wrapper Maker Name Role Phone Feroz Reyes MD Primary Care Provider [phone] Artemio Blunt MD Unavailable Unavailable Cornell Castellon MD Unavailable UnavailTamy Gonzales Unavailable Unavailable Oscar Valiente MD Unavailable Unavailable Bi Frank MD Unavailable Unavailable Encounter Details Date Type Department Care Team Description 10/29/2023 Orders Only Medical Records [address] [place] [address] Mandy Donovan Social History Tobacco Use Types Packs/Day Years [...] How often do you attend chur or adventist services? Never 03/14/2022 Do you belong to any clubs o r organizations such as alevism groups, unions, fraternal or athletic groups, or [...] place to sleep or slept in a halfway (including now)? No 03/14/2022 Sex Assigned at Date Recorded Not on file Job Start Date Occupation Industry Not on file Not on file Not on file documented as of this encounter Plan of Treatment Not on file documented as of this encounter Procedures Procedure Name Priority Date/Time Associated Diagnosis Comments OUTSIDE MAMMO Routine 05/09/2020 documented in this encounter Results * OUTSIDE MAMMO (05/09/2020) Mandy Donovan RADIOLOGY documented in this encounter Visit Diagnoses Not on filedocumented in this encounter Care Teams Lumpia Wrapper Maker Relationship Specialty Start Date End Date Feroz Reyes MD [address] [place] [address] PCP - General Internal Medicine 09/29/20 Artemio Blunt MD [address] [place] [address] Specialist Gastroenterology 03/14/22 Cornell Castellon MD [address] [place] [address] Specialist Urology 03/14/22 Tamy Chandler FNP [address] [place] [address] Nurse Practitioner Cardiology 03/14/22 Oscar Valiente MD [address] [place] [address] Specialist Cardiology 03/14/22 Bi Frank MD [address] [place] [address] Specialist Ophthalmology 03/14/22 documented as of this encounter
--- OUTSIDE RECORDS SUMMARY | 2024-12-01 09:17 | XMS_ITS | Encounter Summary ---
Author Organization [facility] Address [address] [place] [address] Care Team Providers Care Senior Court Office Assistant Name Role Phone Feroz Reyes MD Primary Care Provider [phone] Artemio Blunt MD Unavailable Unavailable Cornell Castellon MD Unavailable UnavailTamy Gonzales Unavailable Unavailable Oscar Valiente MD Unavailable Unavailable Bi Frank MD Unavailable Unavailable Encounter Details Date Type Department Care Team Description 02/21/2024 Night Triage Doc Medical Records [address] [place] [address] Abstract, Provider Social History Tobacco Use Types [...] How often do you attend chur or protestant services? Never 03/14/2022 Do you belong to any clubs o r organizations such as oriental orthodox groups, unions, fraternal or athletic groups, or [...] place to sleep or slept in a skilled nursing (including now)? No 03/14/2022 Sex Assigned at Date Recorded Not on file Job Start Date Occupation Industry Not on file Not on file Not on file documented as of this encounter Plan of Treatment Not on file documented as of this encounter Visit Diagnoses Not on filedocumented in this encounter Care Teams Senior Court Office Assistant Relationship Specialty Start Date End Date Feroz Reyes MD [address] [place] [address] PCP - General Internal Medicine 09/29/20 Artemio Blunt MD [address] [place] [address] Specialist Gastroenterology 03/14/22 Cornell Castellon MD [address] [place] [address] Specialist Urology 03/14/22 Tamy Chandler FNP [address] [place] [address] Nurse Practitioner Cardiology 03/14/22 Oscar Valiente MD [address] [place] [address] Specialist Cardiology 03/14/22 Bi Frank MD [address] [place] [address] Specialist Ophthalmology 03/14/22 documented as of this encounter
--- OUTSIDE RECORDS SUMMARY | 2024-12-01 09:17 | XMS_ITS | Encounter Summary ---
Author Organization [facility] Address [address] [place] [address] Care Team Providers Care Water Hauler Name Role Phone Feroz Reyes MD Primary Care Provider Artemio Blunt MD Unavailable Unavailable Cornell Castellon MD Unavailable UnavailTamy Gonzales Unavailable Unavailable Oscar Valiente MD Unavailable Unavailable Bi Frank MD Unavailable Unavailable Encounter Details Date Type Department Care Team Description 09/04/2022 Rn Hemodialysis Report Medical Records [address] [place] [address] Cornell Castellon MD Social History Tobacco Use Types Packs/Day [...] any clubs o r organizations such as shinto groups, unions, fraternal or athletic groups, or [...] suspected to have Coronavirus/COVID-19? No / Unsure 08/24/2022 12:25 PM EST documented as of this encounter Plan of Treatment Not on file documented as of this encounter Visit Diagnoses Not on filedocumented in this encounter Care Teams Water Hauler Relationship Specialty Start Date End Date Feroz Reyes MD [address] [place] [address] PCP - General Internal Medicine 09/29/20 Artemio Blunt MD [address] [place] [address] Specialist Gastroenterology 03/14/22 Cornell Castellon MD [address] [place] [address] Specialist Urology 03/14/22 Tamy Chandler FNP [address] [place] [address] Nurse Practitioner Cardiology 03/14/22 Oscar Valiente MD [address] [place] [address] Specialist Cardiology 03/14/22 Bi Frank MD [address] [place] [address] Specialist Ophthalmology 03/14/22 documented as of this encounter
--- OUTSIDE RECORDS SUMMARY | 2024-12-01 09:17 | XMS_ITS | Encounter Summary ---
Author Organization [facility] Address [address] [place] [address] Care Team Providers Care Travel Guide Name Role Phone Feroz Reyes MD Primary Care Provider [phone] Artemio Blunt MD Unavailable Unavailable Cornell Castellon MD Unavailable UnavailTamy Gonzales Unavailable Unavailable Oscar Valiente MD Unavailable Unavailable Bi Frank MD Unavailable Unavailable Encounter Details Date Type Department Care Team Description 10/18/2023 Hospital Medical Records [address] [place] [address] Reynold Jimenez Social History Tobacco Use Types Packs/Day Years [...] How often do you attend chur or yazidism services? Never 03/14/2022 Do you belong to [...] place to sleep or slept in a custodial (including now)? No 03/14/2022 Sex Assigned at Date Recorded Not on file Job Start Date Occupation Industry Not on file Not on file Not on file documented as of this encounter Plan of Treatment Not on file documented as of this encounter Visit Diagnoses Not on filedocumented in this encounter Care Teams Travel Guide Relationship Specialty Start Date End Date Feroz Reyes MD [address] [place] [address] PCP - General Internal Medicine 09/29/20 Artemio Blunt MD [address] [place] [address] Specialist Gastroenterology 03/14/22 Cornell Csatellon MD [address] [place] [address] Specialist Urology 03/14/22 Tamy Chandler FNP [address] [place] [address] Nurse Practitioner Cardiology 03/14/22 Oscar Valiente MD [address] [place] [address] Specialist Cardiology 03/14/22 Bi Frank MD [address] [place] [address] Specialist Ophthalmology 03/14/22 documented as of this encounter
--- OUTSIDE RECORDS SUMMARY | 2024-12-01 09:17 | XMS_ITS | Encounter Summary ---
Author Organization [facility] Address [address] [place] [address] Care Team Providers Care Shipping And Receiving Assistant Name Role Phone Feroz Reyes MD Primary Care Provider [phone] Artemio Blunt MD Unavailable Unavailable Cornell Castellon MD Unavailable UnavailTamy Gnozales Unavailable Unavailable Oscar Valiente MD Unavailable Unavailable Bi Frank MD Unavailable Unavailable Reason for Visit * Reason Onset Date Comments [facility] Call 11/29/2023 [place] Encounter Details Date Type Department Care Team Description 11/29/2023 Telephone Adult Medicine [address] [address] Feroz Reyes MD [address] [place] [address] [facility] Call ([facility]) Social History Tobacco Use Types Packs/Day Years [...] How often do you attend chur or presybeterian services? Never 03/14/2022 Do you belong to any clubs o r organizations such as mosque groups, unions, fraternal or athletic groups, or [...] encounter Miscellaneous Notes * Telephone Encounter - Layla Maria L.P.N. - 11/29/2023 3:25 PM EDT FYI- Verbal orders given for PT 1x week for 4 weeks. Hilarialeigh ann PT said pt fell and is c/o back pain, I told her if pt is hurt she needs to go to ER. She said she will let pt know. * Telephone Encounter - Alejandro Cotton - 11/29/2023 2:59 PM EDT [facility] CALL Which [facility] office is calling? [place] Full name of caller: Helga Cui. The caller is A Physical Therapist Is the caller at the patients home?: NO Reason for call: Need verbal orders 1 x a week for 4 weeks for pt. Pt fell on 11/27/23 on the floor at night time. Does caller need an urgent call back? YES Was CONTACT Telephone # obtained above?: NO Fax #: no documented in this encounter Plan of Treatment Not on file documented as of this encounter Visit Diagnoses Not on filedocumented in this encounter Care Teams Shipping And Receiving Assistant Relationship Specialty Start Date End Date Feroz Reyes MD [address] [place] [address] PCP - General Internal Medicine 09/29/20 Artemio Blunt MD [address] [place] [address] Specialist Gastroenterology 03/14/22 Cornell Castellon MD [address] [place] [address] Specialist Urology 03/14/22 Tamy Chandler FNP [address] [place] [address] Nurse Practitioner Cardiology 03/14/22 Oscar Valiente MD [address] [place] [address] Specialist Cardiology 03/14/22 Bi Frank MD [address] [place] [address] Specialist Ophthalmology 03/14/22 documented as of this encounter
--- OUTSIDE RECORDS SUMMARY | 2024-12-01 09:17 | XMS_ITS | Encounter Summary ---
Author Organization [facility] Address [address] [place] [address] Care Team Providers Care Rug Cutter Helper Name Role Phone Feroz Reyes MD Primary Care Provider [phone] Artemio Blunt MD Unavailable Unavailable Cornell Casetllon MD Unavailable UnavailTamy Gonzales Unavailable Unavailable Oscar Valiente MD Unavailable Unavailable Bi Frank MD Unavailable Unavailable Encounter Details Date Type Department Care Team Description 10/30/2023 Home Health Certification Medical Records [address] [place] [address] Social History Tobacco Use Types Packs/Day Years [...] on filedocumented in this encounter Care Teams Rug Cutter Helper Relationship Specialty Start Date End Date Feroz Reyes MD [address] [place] [address] PCP - General Internal Medicine 09/29/20 Artemio Blunt MD [address] [place] [address] Specialist Gastroenterology 03/14/22 Cornell Castellon MD [address] [place] [address] Specialist Urology 03/14/22 Tamy Chandler FNP [address] [place] [address] Nurse Practitioner Cardiology 03/14/22 Oscar Valiente MD [address] [place] [address] Specialist Cardiology 03/14/22 Bi Frank MD [address] [place] [address] Specialist Ophthalmology 03/14/22 documented as of this encounter
--- OUTSIDE RECORDS SUMMARY | 2024-12-01 09:17 | XMS_ITS | Encounter Summary ---
Author Organization [facility] Address [address] [place] [address] Care Team Providers Care Air Conditioning Service Technician Name Role Phone Feroz Reyes MD Primary Care Provider [phone] Artemio Blunt MD Unavailable Unavailable Cornell Castellon MD Unavailable UnavailTamy Gonzales Unavailable Unavailable Oscar Valiente MD Unavailable Unavailable Bi Frank MD Unavailable Unavailable Reason for Visit * Reason Onset Date Comments TEST RESULTS 12/07/2020 Encounter Details Date Type Department Care Team Description 12/07/2020 Telephone Adult Medicine - [address] [address] Ro Price PA-C [address] [place] [address] TEST RESULTS Social History Tobacco Use Types Packs/Day Years [...] week 03/14/2022 How often do you attend [facility] or spiritism services? Never 03/14/2022 Do you belong to any clubs o r organizations such as uatsdin groups, unions, fraternal or athletic groups, or [...] place to sleep or slept in a care home (including now)? No 03/14/2022 Sex Assigned at Date Recorded Not on file Job Start Date Occupation Industry Not on file Not on file Not on file COVID-19 Exposure Response Date Recorded In the last month, have you been in contact with someone who was confirmed or suspected to have Coronavirus / COVID-19? No / Unsure 11/28/2020 12:47 PM EDT documented as of this encounter Miscellaneous Notes * Telephone Encounter - Kaylan Babb - 12/07/2020 2:53 PM EDT Left message for pt to call office back. Ext [phone] or route to B side. * Telephone Encounter - Kaylan Babb - 12/07/2020 2:52 PM EDT ----- Message from Ro Price PA-C sent at 12/07/2020 1:58 PM EDT ----- Please inform patient that her recent renal ultrasound revealed bilateral renal cysts but was otherwise normal per report. There was note of a left kidney lesion noted on chest CT (11/14) and MRI abdomen (11/28) for which a renal ultrasound was suggested for further evaluation. Per renal ultrasound report, area was not well visualized per radiologist report though per MRI result, area thought to be small cyst vs solid structure. (Reviewed results with supervising physician). Patient has stated previously that she follows with Nephrology for renal cysts, would recommend follow-up regarding recentimaging results (can fax results to provider) and to follow-up with PCP as scheduled. documented in this encounter Plan of Treatment Not on file documented as of this encounter Visit Diagnoses Not on filedocumented in this encounter Care Teams Air Conditioning Service Technician Relationship Specialty Start Date End Date Feroz Reyes MD [address] [place] [address] PCP - General Internal Medicine 09/29/20 Artemio Blunt MD [address] [place] [address] Specialist Gastroenterology 03/14/22 Cornell Castellon MD [address] [place] [address] Specialist Urology 03/14/22 Tamy Chandler FNP [address] [place] [address] Nurse Practitioner Cardiology 03/14/22 Oscar Valiente MD [address] [place] [address] Specialist Cardiology 03/14/22 Bi Frank MD [address] [place] [address] Specialist Ophthalmology 03/14/22 documented as of this encounter
--- OUTSIDE RECORDS SUMMARY | 2024-12-01 09:17 | XMS_ITS | Encounter Summary ---
Author Organization [facility] Address [address] [place] [address] Care Team Providers Care Gluer Name Role Phone Feroz Reyes MD Primary Care Provider [phone] Artemio Blunt MD Unavailable Unavailable Cornell Castellon MD Unavailable UnavailTamy Gonzales Unavailable Unavailable Oscar Valiente MD Unavailable Unavailable Bi Frank MD Unavailable Unavailable Encounter Details Date Type Department Care Team Description 11/16/2020 Telephone Adult Medicine - [address] [address] Ro Price PA-C [address] [place] [address] Social History Tobacco Use Types Packs/Day Years [...] 03/14/2022 How often do you attend [facility] or judaism services? Never 03/14/2022 Do you belong to any clubs o r organizations such as judaism groups, unions, fraternal or athletic groups, or [...] have Coronavirus / COVID-19? No / Unsure 11/14/2020 10:54 AM EDT documented as of this encounter Miscellaneous Notes * Telephone Encounter - Kaylan Babb - 11/16/2020 1:39 PM EDT Left message for pt to call office back. Ext [phone] or route to B side. * Telephone Encounter - Kaylan Babb - 11/16/2020 1:39 PM EDT ----- Message from Ro Price PA-C sent at 11/16/2020 12:53 PM EDT ----- Please inform patient that her CT of the chest revealed no mediastinal mass or lymphadenopathy (enlarged lymph nodes) corresponding to shadowing area on recent chest x-ray which is reassuring. There was note of coarse areas of opacity/shadowing to both bases of the lungs for which radiologist is rec ommending 3 month follow-up chest CT for monitoring. There were also incidental findings of a smallmass arising from the left kidney for which radiologist is recommending further evaluation with a renal ultrasound (order placed). There was also note of a small mass near the right adrenal gland, thought to be likely adenoma (adeomas are typically benign and a common finding), but given this finding, would like to order MRI of the abdomen for further evaluation, if MRI is not covered would orderCT abdomen. documented in this encounter Plan of Treatment Not on file documented as of this encounter Visit Diagnoses Not on filedocumented in this encounter Care Teams Gluer Relationship Specialty Start Date End Date Feroz Reyes MD [address] [place] [address] PCP - General Internal Medicine 09/29/20 Artemio Blunt MD [address] [place] [address] Specialist Gastroenterology 03/14/22 Cornell Castellon MD [address] [place] [address] Specialist Urology 03/14/22 Tamy Chandler FNP [address] [place] [address] Nurse Practitioner Cardiology 03/14/22 Oscar Valiente MD [address] [place] [address] Specialist Cardiology 03/14/22 Bi Frank MD [address] [place] [address] Specialist Ophthalmology 03/14/22 documented as of this encounter
--- OUTSIDE RECORDS SUMMARY | 2024-12-01 09:17 | XMS_ITS | Encounter Summary ---
Author Organization [facility] Address [address] [place] [address] Care Team Providers Care Flight Attendant/Inflight Manager Name Role Phone Feroz Reyes MD Primary Care Provider [phone] Reason for Visit * Reason Onset Date Comments information needed/appt. 11/26/2024 Encounter Details Date Type Department Care Team (Late st Contact Info) Description 11/26/2024 [facility] [address] [place] [phone] Feroz Reyes MD [address] [place] [address] information needed/appt. Social History Tobacco Use Types Packs/Day Years [...] as of this encounter Progress Notes * Gosia Yoder MA - 11/26/2024 3:05 PM EDT Spoke with granddaughter Radha, appt changed to 11/27 at 945 with Darius. * Yasmin Caicedo - 11/26/2024 2:50 PM EDT Pt has a er f/u appt set for 12/11/24 and they are requesting to be seen steven. Please advise thank you documented in this encounter Plan of Treatment Upcoming Encounters Date Type Department Care Team (Late st Contact Info) Description 12/04/2024 9:30 AM EDT Consult Internal Medicine - [address] [phone] Kiya Balbuena NP [address] [place] [address] 03/11/2025 9:30 AM EDT Office Visit Internal Medicine - [address] [phone] Feroz Reyes MD [address] [place] [address] 03/16/2025 9:00 AM EDT Appointment [facility] Ultrasound [address] [place] [phone] 03/31/2025 9:30 AM EDT Office Visit Vascular Surgery - [place] [address] [phone] Karol Schafer MD [address] [address] documented as of this encounter Visit Diagnoses Not on filedocumented in this encounter Care Teams Flight Attendant/Inflight Manager Relationship Specialty Start Date End Date Feroz Reyes MD [address] [place] [address] PCP - General Internal Medicine 09/29/20 documented as of this encounter
--- OUTSIDE RECORDS SUMMARY | 2024-12-01 09:17 | XMS_ITS | Encounter Summary ---
Author Organization [facility] Address [address] [place] [address] Care Team Providers Care Professor Of Psychiatry Name Role Phone Feroz Reyes MD Primary Care Provider [phone] Artemio Blunt MD Unavailable Unavailable Cornell Castellon MD Unavailable UnavailTamy Gonzales Unavailable Unavailable Oscar Valiente MD Unavailable Unavailable Bi Frank MD Unavailable Unavailable Encounter Details Date Type Department Care Team Description 09/27/2022 Platen Grinder Report Medical Records [address] [place] [address] Dennis Topete, [employer] Social History Tobacco Use [...] week 03/14/2022 How often do you attend [facility] or quaker services? Never 03/14/2022 Do you belong to any clubs o r organizations such as gnosticism groups, unions, fraternal or athletic groups, or [...] place to sleep or slept in a fci (including now)? No 03/14/2022 Sex Assigned at Date Recorded Not on file Job Start Date Occupation Industry Not on file Not on file Not on file documented as of this encounter Plan of Treatment Not on file documented as of this encounter Visit Diagnoses Not on filedocumented in this encounter Care Teams Professor Of Psychiatry Relationship Specialty Start Date End Date Feroz Reyes MD [address] [place] [address] PCP - General Internal Medicine 09/29/20 Artemio Blunt MD [address] [place] [address] Specialist Gastroenterology 03/14/22 Cornell Castellon MD [address] [place] [address] Specialist Urology 03/14/22 Tamy Chandler FNP [address] [place] [address] Nurse Practitioner Cardiology 03/14/22 Oscar Valiente MD [address] [place] [address] Specialist Cardiology 03/14/22 Bi Frank MD [address] [place] [address] Specialist Ophthalmology 03/14/22 documented as of this encounter
--- OUTSIDE RECORDS SUMMARY | 2024-12-01 09:17 | XMS_ITS ---
Author Organization [facility] Address [address] [place] [phone] Care Team Providers Care Emergency Communications Dispatcher Name Role Phone Feroz Reyes Primary Care Provider Artemio Zuniga [phone] Allergies Allergen (clinical drug ingredient) Drug/Non Drug [...] Risk Notes Problem Right lower quadrant pain ([id number]) Abdominal pain, RLQ (R10.31) Active confirmed Vital Signs Blood pressure systolic 00 mm Hg 06/09/20 24 Blood pressure diastolic 00 mm Hg 024 Height 58.5 in 06/09/2024 Weight 133 lbs 06/09/2024 BMI 27.32 kg/m2 06/09/2024 Encounters Encounter Location Date Provider Diagnosis [facility] [address] [place] [address] 06/09/2024 Artemio Blunt Abdominal pain, RLQ R10.31 [...] ALEXIS SHUKLA RDOB: [birth year] (83 yo F)Acc No.[id number]:06/09/2024 Progress Notes Patient:?ALEXIS SHUKLA Provider:?Artemio Blunt MD :1940???Age:83 Y???Sex:Female D ate:06/09/2024 Address:[facility] [address], [facility] Pcp:Feroz Reyes Subjective: * Chief Complaints: * [...] * Treatment: * Procedure Codes:?1036F TOBAC CO [id number] BP SCR NOT PRFRM REC REASON NOS [...] MD Date:? 024 Generated for Sukhjinder buitrago/Curt/Sadie on:?12/01/2024 09:16 AM EDT History and Physical Notes * HPI [...]
--- OUTSIDE RECORDS SUMMARY | 2024-12-01 09:17 | XMS_ITS | Encounter Summary ---
Author Organization [facility] Address [address] [place] [address] Care Team Providers Care Wood Calker Name Role Phone Feroz Reyes MD Primary Care Provider [phone] Reason for Visit * Reason Onset Date Comments Hospital Follow-up 11/26/2024 Encounter Details Date Type Department Care Team (Late st Contact Info) Description 11/26/2024 [facility] [address] [place] [phone] Feroz Reyes MD [address] [place] [address] Hospital Follow-up Social History Tobacco Use Types Packs/Day Years [...] Progress Notes * Sara Dias MA - 11/26/2024 1:12 PM EDT Called patient and appt made. * Michela Hickman - 11/26/2024 11:42 AM EDT Hospital/ER follow up appointment needed Hospital patient was treated at: [facility] Was this only an ER visit or was the patient admitted to the hospital? ER Visit only Date of visit if ER visit only: 11/26/24 If patient was admitted what was the date of discharge? N/a Reason/diagnosis for visit or stay: diverticulitus When was the patient told to follow up? 3 days Was visit or stay related to an injury? If yes, what was the date of injury (DOI)? No If yes, was the injury due to: Not 3rd republican related documented in this encounter Plan of Treatment Upcoming Encounters Date Type Department Care Team (Late st Contact Info) Description 12/04/2024 9:30 AM EDT Consult Internal Medicine - [address] [phone] Kiya Balbuena NP [address] [place] [address] 03/11/2025 9:30 AM EDT Office Visit Internal Medicine - [address] [phone] Feroz Reyes MD [address] [place] [address] 03/16/2025 9:00 AM EDT Appointment [facility] Ultrasound [address] [place] [address] 03/31/2025 9:30 AM EDT Office Visit Vascular Surgery - [place] [address] [phone] Karol Schafer MD [address] [address] documented as of this encounter Visit Diagnoses Not on filedocumented in this encounter Care Teams Wood Calker Relationship Specialty Start Date End Date Feroz Reyes MD [address] [place] [address] PCP - General Internal Medicine 09/29/20 documented as of this encounter
--- OUTSIDE RECORDS SUMMARY | 2024-12-01 09:17 | XMS_ITS | Encounter Summary ---
Author Organization [facility] Address [address] [place] [address] Care Team Providers Care Lens Coater Name Role Phone Feroz Reyes MD Primary Care Provider [phone] Artemio Blunt MD Unavailable Unavailable Cornell Castellon MD Unavailable UnavailTamy Gonzales Unavailable Unavailable Oscar Valiente MD Unavailable Unavailable Bi Frank MD Unavailable Unavailable Encounter Details Date Type Department Care Team Description 12/27/2023 Sales Representative Jewelry Report Medical Records [address] [place] [address] Social History Tobacco Use Types Packs/Day Years [...] How often do you attend chur or holiness services? Never 03/14/2022 Do you belong to any clubs o r organizations such as baptism groups, unions, fraternal or athletic groups, or [...] on filedocumented in this encounter Care Teams Lens Coater Relationship Specialty Start Date End Date Feroz Reyes MD [address] [place] [address] PCP - General Internal Medicine 09/29/20 Artemio Blunt MD [address] [place] [address] Specialist Gastroenterology 03/14/22 Cornell Castellon MD [address] [place] [address] Specialist Urology 03/14/22 Tamy Chandler FNP [address] [place] [address] Nurse Practitioner Cardiology 03/14/22 Oscar Valiente MD [address] [place] [address] Specialist Cardiology 03/14/22 Bi Frank MD [address] [place] [address] Specialist Ophthalmology 03/14/22 documented as of this encounter
--- OUTSIDE RECORDS SUMMARY | 2024-12-01 09:17 | XMS_ITS | Encounter Summary ---
Author Organization [facility] Address [address] [place] [address] Care Team Providers Care Control Engineer Name Role Phone Feroz Reyes MD Primary Care Provider [phone] Artemio Blunt MD Unavailable Unavailable Cornell Castellon MD Unavailable UnavailTamy Gonzales Unavailable Unavailable Oscar Valiente MD Unavailable Unavailable Bi Frank MD Unavailable Unavailable Encounter Details Date Type Department Care Team Description 01/12/2021 Release of Information Medical Records [address] [place] [address] Abstract, Provider Social History Tobacco Use Types [...] often do you attend chur ch or shinto services? Never 03/14/2022 Do you belong to any clubs o r organizations such as synagogue groups, unions, fraternal or athletic groups, or [...] place to sleep or slept in a prison (including now)? No 03/14/2022 Sex Assigned at Date Recorded Not on file Job Start Date Occupation Industry Not on file Not on file Not on file COVID-19 Exposure Response Date Recorded In the last month, have you been in contact with someone who was confirmed or suspected to have Coronavirus / COVID-19? No / Unsure 01/09/2021 4:38 PM EDT documented as of this encounter Plan of Treatment Not on file documented as of this encounter Visit Diagnoses Not on filedocumented in this encounter Care Teams Control Engineer Relationship Specialty Start Date End Date Feroz Reeys MD [address] [place] [address] PCP - General Internal Medicine 09/29/20 Artemio Blunt MD [address] [place] [address] Specialist Gastroenterology 03/14/22 Cornell Castellon MD [address] [place] [address] Specialist Urology 03/14/22 Tamy Chandler FNP [address] [place] [address] Nurse Practitioner Cardiology 03/14/22 Oscar Valiente MD [address] [place] [address] Specialist Cardiology 03/14/22 Bi Frank MD [address] [place] [address] Specialist Ophthalmology 03/14/22 documented as of this encounter
--- OUTSIDE RECORDS SUMMARY | 2024-12-01 09:17 | XMS_ITS | Clinical Summary ---
Author Organization [facility] Address [address] [place] [address] Care Team Providers Care Emergency Preparedness Coordinator Name Role Phone Feroz Reyes MD Primary Care Provider [phone] Social History Tobacco Use Types Packs/Day Years [...] age to complete this topic Care Teams Emergency Preparedness Coordinator Relationship Specialty Start Date End Date Feroz Reyes MD PCP - General Internal Medicine 11/08/20
--- OUTSIDE RECORDS SUMMARY | 2024-12-01 09:17 | XMS_ITS | Encounter Summary ---
Author Organization [facility] Address [address] [place] [address] Care Team Providers Care Computer Builder Name Role Phone Feroz Reyes MD Primary Care Provider [phone] Artemio Blunt MD Unavailable Unavailable Cornell Castellon MD Unavailable UnavailTamy Gonzales Unavailable Unavailable Oscar Valiente MD Unavailable Unavailable iB Frank MD Unavailable Unavailable Reason for Visit * Reason Onset Date Comments Bargeman Feedback 02/15/2021 Nephrology Encounter Details Date Type Department Care Team Description 02/15/2021 Telephone Adult Medicine [address] [address] Feroz Reyes MD [address] [place] [address] Bargeman Feedback (Nephrology) Social History Tobacco Use Types Packs/Day Years [...] often do you attend chur ch or samaritan services? Never 03/14/2022 Do you belong to any clubs o r organizations such as christianity groups, unions, fraternal or athletic groups, or [...] have Coronavirus / COVID-19? No / Unsure 02/03/2021 1:45 PM EDT documented as of this encounter Miscellaneous Notes * Telephone Encounter - Layla Osei - 02/15/2021 11:20 AM EDT [facility] * Telephone Encounter - Ana Muñiz - 02/15/2021 10:22 AM EDT Hansa is calling from [facility] for the pt nephrology referral to be faxed overagain because they have not received anything. Please fax to [phone] documented in this encounter Plan of Treatment Not on file documented as of this encounter Visit Diagnoses Not on filedocumented in this encounter Care Teams Computer Builder Relationship Specialty Start Date End Date Feroz Reyes MD [address] [place] [address] PCP - General Internal Medicine 09/29/20 Artemio Blunt MD [address] [place] [address] Specialist Gastroenterology 03/14/22 Cornell Castellon MD [address] [place] [address] Specialist Urology 03/14/22 Tamy Chandler FNP [address] [place] [address] Nurse Practitioner Cardiology 03/14/22 Oscar Valiente MD [address] [place] [address] Specialist Cardiology 03/14/22 Bi Frank MD [address] [place] [address] Specialist Ophthalmology 03/14/22 documented as of this encounter
--- OUTSIDE RECORDS SUMMARY | 2024-12-01 09:17 | XMS_ITS | Encounter Summary ---
Author Organization [facility] Address [address] [place] [address] Care Team Providers Care Developmental Psychologist Name Role Phone Feroz Reyes MD Primary Care Provider Artemio Blunt MD Unavailable Unavailable Cornell Castellon MD Unavailable UnavailTamy Gonzales Unavailable Unavailable Oscar Valiente MD Unavailable Unavailable Bi Frank MD Unavailable Unavailable Encounter Details Date Type Department Care Team Description 10/28/2023 SNF discharge summary Medical Records [address] [place] [address] Abstract, Provider Social History Tobacco Use Types [...] How often do you attend chur or sabianism services? Never 03/14/2022 Do you belong to any clubs o r organizations such as yarsani groups, unions, fraternal or athletic groups, or [...] on filedocumented in this encounter Care Teams Developmental Psychologist Relationship Specialty Start Date End Date Feroz Reyes MD [address] [place] [address] PCP - General Internal Medicine 09/29/20 Artemio Blunt MD [address] [place] [address] Specialist Gastroenterology 03/14/22 Cornell Castellon MD [address] [place] [address] Specialist Urology 03/14/22 Tamy Chandler FNP [address] [place] [address] Nurse Practitioner Cardiology 03/14/22 Oscar Valiente MD 305 [place] [address] Specialist Cardiology 03/14/22 Bi Frank MD [address] [place] [address] Specialist Ophthalmology 03/14/22 documented as of this encounter
--- OUTSIDE RECORDS SUMMARY | 2024-12-01 09:17 | XMS_ITS | Encounter Summary ---
Author Organization [facility] Address [address] [place] [address] Care Team Providers Care Warehouse Delivery Driver Name Role Phone Feroz Reyes MD Primary Care Provider Artemio Blunt MD Unavailable Unavailable Cornell Castellon MD Unavailable UnavailTamy Gonzales Unavailable Unavailable Oscar Valiente MD Unavailable Unavailable Bi Frank MD Unavailable Unavailable Reason for Visit * Reason Onset Date Comments TEST RESULTS 03/03/2021 Encounter Details Date Type Department Care Team Description 03/03/2021 Telephone Adult Medicine - [address] [address] Ro Price PA-C [address] [place] [address] TEST RESULTS Social History Tobacco Use Types [...] often do you attend [facility] or sikh services? Never 03/14/2022 Do you belong to [...] have Coronavirus / COVID-19? No / Unsure 02/24/2021 3:16 PM EDT documented as of this encounter Miscellaneous Notes * Telephone Encounter - Lesvia Schwartz PA-C - 03/06/2021 2:24 PM EDT Refill done . * Telephone Encounter - Sara Dias M.A. - 03/06/2021 10:36 AM EDT Patient informed who wants atorvastatin refill Lab Results Component Value Date CHOL 167 01/18/2021 LDL 72 01/18/2021 HDL 78 01/18/2021 TRIG 85 01/18/2021 SGOT 15 01/18/2021 SGPT 18 01/18/2021 * Telephone Encounter - Ariella Modi - 03/06/2021 10:23 AM EDT Pt returned call, please call back. * Telephone Encounter - Kaitlynn Tipton M.A. - 03/03/2021 5:03 PM EDT Left message to return call, please put call through to [phone] or re message to monica ng * Telephone Encounter - Kaitlynn Tipton M.A. - 03/03/2021 5:03 PM EDT ----- Message from Ro Price PA-C sent at 03/03/2021 4:47 PM EDT ----- Please inform patient that her recent chest CT revealed decrease in size of densities/opacities at the lung bases that have been being followed by chest imaging. There were no new focal abnormalitiesidentified which is reassuring. Imaging appears stable overall. Radiologist is recommending repeat chest CT in 6 months time for monitoring. Order placed. documented in this encounter Plan of Treatment Not on file documented as of this encounter Visit Diagnoses Not on filedocumented in this encounter Care Teams Warehouse Delivery Driver Relationship Specialty Start Date End Date Feroz Reyes MD [address] [place] [address] PCP - General Internal Medicine 09/29/20 Artemio Blunt MD [address] [place] [address] Specialist Gastroenterology 03/14/22 Cornell Castellon MD [address] [place] [address] Specialist Urology 03/14/22 Tamy Chandler FNP [address] [place] [address] Nurse Practitioner Cardiology 03/14/22 Oscar Valiente MD [address] [place] [address] Specialist Cardiology 03/14/22 Bi Frank MD [address] [place] [address] Specialist Ophthalmology 03/14/22 documented as of this encounter
--- OUTSIDE RECORDS SUMMARY | 2024-12-01 09:17 | XMS_ITS | Patient Health Record ---
Author Organization [facility] Address [address] [place] [address] Care Team Providers Care Wheel Mill Operator Name Role Phone Theo Khan Primary Care Provider Artemio Zuniga [facility] [phone] Allergies Allergen (clinical drug ingredient) Drug/Non Drug Allergy documented on EMR Reaction Allergy Type Onset Date Status eggs (uncoded) Unknown Allergy Activ e Bk bk (uncoded) Unknown Allergy A ctive Latex LATEX (uncoded) Unknown Allergy Acti ve Results Component Value Reference Range Notes Pathology Reviewed date:01/19/2024 10:26:04 PM Interpretation: Performing Lab:[facility], [address] [place] [address] Notes/Report: Name: Prema Shukla Age/Sex: 83/F : 1940 Unit#: [id number] Attend Dr: Artemio Blunt Re01/06/24 Status : [facility] Location: [facility] Disch: SPEC : [id number] RECD : 01/06/24-1520 STATUS: JUAN LUIS JERONIMO NUM: [id number] JENNY: 01/06/24-1356 [facility] DR: Artemio Blunt ENTERED: 01/06/24-15 29 SP [...] Prema Shukla Age/Sex: 83/F : 1940 Unit#: [id number] Attend Dr: Artemio Blunt Re01/06/24 Status : [facility] Location: [facility] Disch: SPEC : [id number] RECD : 01/06/24 STATUS: JUAN LUIS JERONIMO NUM: [id number] JENNY: 01/06/24-[address]: Artemio Blunt ENTERED: [...] CEDS Copies To: THEO KHAN MD [address] [facility], [place] [id number] Jose Ra[address] [place] [address] Signed (si gnature on file) Dionicio Giang [...] Risk Notes Problem Diverticular disease of colon (280980218) Diverticulosis of large intestine without perforation or abscess without bleeding (K57.30) Active confirmed Problem Intestinal malabsorption (923258815) 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 Problem 840465640 Diverticulosis o f large intestine without hemorrhage (K57.30) Active confirmed Problem 46955083 Heme + stool (R19.5) Active confirmed Problem Right lower quadrant pain (892338525) Abdominal pain, RLQ (R10.31) Active confirmed Problem 089677270 Abnormal barium enema (R93.3) Active confirmed Problem 46043198 Diarrhea, unspecified type (R19.7) Active confirmed Problem 3194352 Colon stricture (K56.69) Active confirmed Problem 40359732 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 Vital Signs Blood pressure diastolic 00 mm Hg 06/09/2024 Height 58.5 in 06/09/2024 Blood pressure systolic 00 mm Hg 06/09/2024 Weight 133 lbs 06/09/2024 BMI 27.32 kg/m2 06/09/2024 Encounters Encounter Location Date Provider Diagnosis [facility] Outpatient [address] [place], [place] [id number] 01/06/2024 Artemio Blunt Colon polyps K63.5 ; Heme positive stool R19.5 ; Chronic diarrhea K52.9 and Diverticulosis of large intestine without perforation or abscess without bleeding K57.30 [facility] [address] [place] [address] 06/09/2024 Artemio Blunt Abdominal pain, RLQ R10.31 and Bile salt-induced diarrhea K90.89 [facility] [address] [place] [address] 11/27/2024 Artemio Blunt [facility] [address] [place] [address] 01/14/2024 Artemio Blunt [facility] [address] [place] [address] 04/10/2024 Artemio Blunt Assessments Encounter Date Diagnosis [...] Insured Coverage Start Date Coverage End Date [place] [employer] [facility] [address] [place] Yee [phone] [id number] PREMA SHUKLA Self - patient is the insured [place] [address] [place] [id number] PREMA SHUKLA Self - patient is the insured Medical (General) History Medical History History ICD Code Hypertension Denies [place],DM,CVA,Lung disease,renal dise ase Hyperlipidemia EGD [address] C[place]ton Colonoscopy [place] [address] Covington--neg. except for diverticulosis DVT with PE 09/2016--at [facility] Sigmoid diverticulitis in 2015 with surg eries as below Bile-induced diarrhea treated with ellen styramine Negative flexible sigmoidosc opy in 2016. There was no evidence of any anastomotic stricture. Colonoscopy 12/2023 with 6 tu bular adenomas removed; no IBD; bx neg for microscopic colitis Surgical History Surgery Date(Month/Year) JOSE Surgery for diverticulitis-- 02/2016 transverse colostomy, low anterior sigmoid resection in August of 2016; colostomy reversed by Dr. Bee later in 2016 Ureteral stent placement on the right in 01/2017--Dr. Castellon Cholecystectomy in 2018
--- OUTSIDE RECORDS SUMMARY | 2024-12-01 09:18 | XMS_ITS | Encounter Summary ---
Author Organization [facility] Address [address] [place] [address] Care Team Providers Care Order Selector Name Role Phone Feroz Reyes MD Primary Care Provider [phone] Artemio Blunt MD Unavailable Unavailable Cornell Castellon MD Unavailable UnavailTamy Gonzales Unavailable Unavailable Oscar Valiente MD Unavailable Unavailable Bi Frank MD Unavailable Unavailable Encounter Details Date Type Department Care Team Description 07/13/2021 Hospital Medical Records [address] [place] [address] Jarocho Stacy Social History Tobacco Use Types Packs/Day Years [...] How often do you attend chur or zoroastrianism services? Never 03/14/2022 Do you belong to [...] place to sleep or slept in a long term (including now)? No 03/14/2022 Sex Assigned at [...] on filedocumented in this encounter Care Teams Order Selector Relationship Specialty Start Date End Date Feroz Reyes MD [address] [place] [address] PCP - General Internal Medicine 09/29/20 Artemio Blunt MD [address] [place] [address] Specialist Gastroenterology 03/14/22 Cornell Castellon MD [address] [place] [address] Specialist Urology 03/14/22 Tamy Chandler FNP [address] [place] [address] Nurse Practitioner Cardiology 03/14/22 Oscar Valiente MD [address] [place] [address] Specialist Cardiology 03/14/22 Bi Frank MD [address] [place] [address] Specialist Ophthalmology 03/14/22 documented as of this encounter
--- OUTSIDE RECORDS SUMMARY | 2024-12-01 09:18 | XMS_ITS | Encounter Summary ---
Author Organization [facility] Address [address] [place] [address] Care Team Providers Care Hyperion Essbase Developer Name Role Phone Feroz Reyes MD Primary Care Provider [phone] Reason for Referral * Consultation (Routine) - Pending Review Specialty Diagnoses / Procedures Referred By Lm goldstein Referred To Contact Gastroenterology Diagnoses Diverticulitis Darius Montoya NP [address] [place] [address] Phone: tel: fax: Artemio Blunt MD [address] [place] [address] [address] [place] [address] Phone: tel: fax: Referral ID Status Reason Start Date Expiration Date Visits Requested Visits Authorized [id number] Pending Review Specialty Services Required 11/27/2024 11/27/2025 1 1 Reason for Visit * Reason Onset Date Comments Referral 11/27/2024 EXTERNAL GASTRO Encounter Details Date Type Department Care Team (Late st Contact Info) Description 11/27/2024 Telephone Internal Medicine - [address] [phone] Feroz Reyes MD [address] [place] [address] Referral (EXTERNAL GASTRO ) Social History Tobacco Use Types Packs/Day Years [...] as of this encounter Progress Notes * Darius Montoya NP - 11/27/2024 4:29 PM EDT Signed * Gosia Yoder MA - 11/27/2024 11:07 AM EDT External referral pending. * Cosme Lugo - 11/27/2024 10:54 AM EDT Pt granddaughter calling gastro referral needs to be resent for Dr. Artemio Blunt NPI : [id number] [address] [place] [address] [place] [address] documented in this encounter Plan of Treatment Upcoming Encounters Date Type Department Care Team (Late st Contact Info) Description 12/04/2024 9:30 AM EDT Consult Internal Medicine - [address] [phone] Kiya Balbuena NP [address] [place] [address] 03/11/2025 9:30 AM EDT Office Visit Internal Medicine - [address] [phone] Feroz Reyes MD [address] [place] [address] 03/16/2025 9:00 AM EDT Appointment [facility] Ultrasound [address] [place] [phone] 03/31/2025 9:30 AM EDT Office Visit Vascular Surgery - [place] [address] [place] [address] Karol Schafer MD [address] [place] [address] Scheduled Referrals Name Type Priority Associated Diagnoses Order Schedule Ambulatory referral to Gastroenterology Outpatient Referral Routine Diverticulitis 1 Occurrences starting 11/27/2024 until 11/27/2025 documented as of this encounter Visit Diagnoses Diagnosis Diverticulitis- Primary Diverticulitis of colon (without mention of hemorrhage) documented in this encounter Care Teams Hyperion Essbase Developer Relationship Specialty Start Date End Date Feroz Reyes MD [address] [place] [address] PCP - General Internal Medicine 09/29/20 documented as of this encounter
--- OUTSIDE RECORDS SUMMARY | 2024-12-01 09:18 | XMS_ITS | Clinical Summary ---
Author Organization [facility], Address [address] [place] [address] [place] [address] Phone Care Team Providers Care Resident Hall Director Name Role Phone Genaro Herrera Primary Care Provider [phone] Allergies Active Allergy Reactions Criticality Noted Date [...] by mouth 10/31/2020 Active ergocalciferol 1.25 MG (83293 UT) capsule TAKE 1 CAPSULE BY MOUTH [...] of 2 - PCV) 1946 Influenza Vaccine (Season Ended) 2025 Hepatitis B Vaccine Aged Out No longe r eligible based on patient's age to complete this topic Insurance ROBBIN Care Teams Resident Hall Director Relationship Specialty Start Date End Date Genaro Herrera [address] [place] [address] PCP - General Internal Medicine 02/16/21
--- OUTSIDE RECORDS SUMMARY | 2024-12-01 09:18 | XMS_ITS ---
Author Organization [facility] Address [address] [place] [address] Care Team Providers Care Cafe Attendant Name Role Phone Feroz Reyes Primary Care Provider Artemio Zuniga [phone] Encounters Encounter Location Date Provider Diagnosis [facility] [address] [place] [address] 11/27/2024 Artemio Blunt Plan Of Treatment No Information Progress Notes * ALEXIS SHUKLA RDOB: 2 (84 yo F)Acc No.[id number]:11/27/2024 Patient:?ALEXIS SHUKLA :1940???Age:84 Y???Sex:Female Address:[place] [address], [address] * * Date:?
--- OUTSIDE RECORDS SUMMARY | 2024-12-01 09:18 | XMS_ITS | Encounter Summary ---
Author Organization [facility] Address [address] [place] [address] Care Team Providers Care Water Control Supervisor Name Role Phone Feroz Reyes MD Primary Care Provider [phone] Reason for Referral * Consultation (Urgent) - Authorized Specialty Diagnoses / Procedures Referred By Lm goldstein Referred To Contact Gastroenterology Diagnoses Diverticulitis Darius Montoya NP [address] [place] [address] Phone: tel: fax: Gastroenterology [facility] [address] [place] [address] Phone: tel: fax: Referral ID Status Reason Start Date Expiration Date Visits Requested Visits Authorized [id number] Authorized Specialty Services Required 11/27/2024 11/27/2025 1 1 * Consultation (Urgent) - Closed Specialty Diagnoses / Procedures Referred By Conttana t Referred To Contact Otolaryngology Diagnoses Hearing difficulty of both ears Darius Montoya NP [address] [place] [address] Phone: tel: fax: Donny Hernadez MD [address] [facility] [address] [place] [address] Phone: tel: fax: Referral ID Status Reason Start Date Expiration Date V isits Requested Visits Authorized [id number] Closed Specialty Services Required 11/27/2024 11/27/2025 1 1 Reason for Visit * Reason Comments Hospitalization/ER Encounter Details Date Type Department Care Team (Late st Contact Info) Description 11/27/2024 9:45 AM EDT Office Visit Internal Medicine - [address] [phone] Darius Montoya NP [address] [place] [address] Hearing difficulty of both ears (Primary Dx); Diverticulitis; Nausea Social History Tobacco Use Types Packs/Day Years [...] on file documented as of this encounter Last Filed Vital Signs Vital Sign Reading [...] Mass Index 26.17 11/27/2024 9:46 AM EDT documented in this encounter Ordered Prescriptions Prescription Sig Dispense Quantity Refills Last Filled Start Date End Date ondansetron (ZOFRAN) 4 mg tabletIndications: Nausea Take 1 tablet (4 mg total) by mouth every 12 (twelve) hours if needed for nausea or vomiting for up to 10 days. 20 tablet 11/27/2024 documented in this encounter Progress Notes * Darius Montoya NP - 11/27/2024 9:45 AM EDT CHIEF COMPLAINT: Hospitalization/ER had concerns including Hospitalization/ER. IDENTIFIER: Prema Carpenter is a 84 y.o. old female is accompanied by his daughter HPI: Prema Carpenter is a 84 y.o. old female presents to the office for evaluation of Hospitalization/ER had concerns including Hospitalization/ER. Patient had abdominal pain for which presented to ER about 2 days ago, started on Augmentin with impression of diverticulitis, he also had an episode of falling down prior to ER visit for which did brain and cervical CAT scan which was negative for any acute problem. His daughter is very concerned about diverticulitis complications, states her mother had diverticulitis in 2019 which was complicated required surgical intervention and colostomy which was reversed after 2 years, she does not want this happen again, she is wondering if patient needs abdominal CT scan or MRI for further evaluationof diverticulitis, she states in the hospital it was only checked x-ray which is not enough to evaluate diverticulitis. She is also is concerned about presence of M??ni??re disease because her motherhas ringing in her ears which is getting worse, she would like to try hearing aid due to hearing difficulty. ROS: See HPI PAST MEDICAL HISTORY: Patient Active Problem List Diagnosis Date Noted COVID 07/03/2023 PVD (peripheral vascular disease) ([facility]) 02/28/2023 Hypercholesterolemia 12/26/2020 Nephrolithiasis 12/26/2020 Anemia 12/26/2020 Bilateral renal cysts 12/15/2020 Adrenal adenoma, right 12/07/2020 Gastroesophageal reflux disease 10/31/2020 Essential hypertension 10/31/2020 Cervical radiculopathy 10/31/2020 ACTIVE MEDICATIONS: Outpatient Medications Marked as Taking for the 11/27/24 encounter (Office Visit) with Darius Montoya NP Medication Sig Dispense Refill acetaminophen (TYLENOL 8 HOUR) 650 mg 8 hr tablet Take 1 Tablet by mouth every 8 hours as needed for Pain. amLODIPine (NORVASC) 5 mg tablet TAKE 1 TABLET BY MOUTH DAILY brimonidine (ALPHAGAN P) 0.15 % ophthalmic solution 2 times daily. calcium carbonate (CALCIUM 500 ORAL) CALCIUM 500-2.5 MG-MCG CHEW TAB: Take by mouth daily. calcium carbonate EX (Antacid Extra-Strength) 300 mg (750 mg) chewable tablet Take 1 Tablet by mouth daily. CHOLECALCIFEROL, VITAMIN D3, ORAL Take 1,000 mg by mouth. cholestyramine (QUESTRAN) 4 gram powder cyanocobalamin (VIT B-12) 1,000 mcg tablet extended release ER tablet Take by mouth daily. diclofenac (VOLTAREN) 1 % topical gel Apply topically 2 times daily. gabapentin (NEURONTIN) 100 mg capsule TAKE 1 CAPSULE BY MOUTH EVERY NIGHT IN ADDITION TO 300 MG CAPSULE gabapentin (NEURONTIN) 300 mg capsule TAKE 1 CAPSULE BY MOUTH TWICE DAILY (in addition to 100 MG capsule at night) latanoprost (XALATAN) 0.005 % ophthalmic solution INSTILL 1 DROP IN BOTH EYES EVERY NIGHT AT BEDTIME lidocaine (LIDODERM) 5 % patch Apply 1 patch topically 1 (one) time each day. loratadine (CLARITIN) 10 mg tablet Take 1 tablet (10 mg total) by mouth 1 (one) time each day. 90 tablet 1 metoprolol succinate (TOPROL-XL) 25 mg 24 hr tablet 1 Tablet daily. netarsudiL (Rhopressa) 0.02 % drops nitroglycerin (NITROSTAT) 0.[address] 1 Tablet under the tongue every 5 minutes as needed for Chest pain. potassium chloride (KLOR-CON) 10 mEq CR tablet TAKE 1 TABLET BY MOUTH TWICE DAILY 180 tablet 1 rosuvastatin (CRESTOR) 40 mg tablet Take 1 Tablet by mouth daily. timolol (TIMOPTIC-XR) 0.5 % ophthalmic gel-forming 2 times daily. ALLERGIES: @ALL@ PHYSICAL EXAM: Visit Vitals BP 127/67 Comment: auto Pulse 62 Ht 1.473 m (58 ) Wt 56.8 kg (125 lb 3.2 oz) LMP (LMP Unknown) BMI 26.17 kg/m?? OB Status Hysterectomy Smoking Status Never BSA 1.49 m?? APPEARANCE: Alert and in no acute distress HEART: RRR with normal S1 and S2, no murmurs, no gallops, no JVD appreciated LUNG: clear to auscultation EXTREMITIES: Extremities warm and well perfused without clubbing, cyanosis, or edema LABS: @LASTDATALABS@ IMPRESSION: 1. Hearing difficulty of both ears 2. Diverticulitis 3. Nausea PLAN: I evaluate this patient today for abdominal pain and related ER visit, she has history of complicated diverticulitis in 2019 required colostomy which reversed after 2 years, she has started Augmentin2 days ago in ER, her abdominal x-ray did not show obstruction, today she is still has a vague lower abdominal pain, none bloody diarrhea, nausea without vomiting, generally she feels a little better, on today's physical exam, she has hyperactive bowel sounds, abdomen is not tender but has some pain, vital signs are stable. I explained that imaging the study for acute abdomen needs to be done in ER setting if deemed necessary, ordering for imaging study in outpatient setting on Saturday cannot address acute problems. I advised patient to continue and finish recommended antibiotic, sent prescription for Zofran for her nausea, she states she can drink water and michael ирина but not solid foods, warning signs such as worsening GI symptoms warranting immediate or urgent evaluation reviewed with patient. Patient expressed understanding and agreement. I also referred patient to GI for further recommendation. For her difficulty hearing and ringing, her daughter is concerned about M??ni??re disease, I referred patient to ENT. There was no change in her medications She will continue following up with her PCP Orders Placed This Encounter Procedures Ambulatory referral to ENT Ambulatory referral to Gastroenterology ADDITIONAL ORDERS: AMB REFERRAL TO ENT AMB REFERRAL TO GASTROENTEROLOGY Today's documentation was made using voice recognition software.This note may contain grammatical errors secondary to this software. Darius Montoya NP on 11/27/2024 at 5:42 PM EDT documented in this encounter Plan of Treatment Upcoming Encounters Date Type Department Care Team (Late st Contact Info) Description 12/04/2024 9:30 AM EDT Consult Internal Medicine - [facility] [address] [place], [place] [phone] Kiya Balbuena NP [address] [place] [address] 03/11/2025 9:30 AM EDT [facility] [address] [place] [address] Feroz Reyes MD [address] [place] [address] 03/16/2025 9:00 AM EDT Appointment [facility] Ultrasound [address] [place] [address] 03/31/2025 9:30 AM EDT Office Visit Vascular Surgery - [place] [address] [place] [address] Karol Schafer MD [address] [place] [address] Scheduled Referrals Name Type Priority Associated Diagnoses Order Schedule Ambulatory referral to ENT Outpatient Referral Routine Hearing difficulty of both ears 1 Occurrences starting 11/27/2024 until 11/27/2025 Ambulatory referral to Gastroenterology Outpatient Referral Routine Diverticulitis 1 Occurrences starting 11/27/2024 until 11/27/2025 documented as of this encounter Visit Diagnoses Diagnosis Hearing difficulty of both ears- Primary Diverticulitis Diverticulitis of colon (without mention of hemorrhage) Nausea Nausea alone documented in this encounter Care Teams Water Control Supervisor Relationship Specialty Start Date End Date Feroz Reyes MD [address] [place] [address] PCP - General Internal Medicine 09/29/20 documented as of this encounter
--- OUTSIDE RECORDS SUMMARY | 2024-12-01 09:18 | XMS_ITS | Encounter Summary ---
Author Organization [facility] Address [address] [place] [address] Care Team Providers Care Rear Load Truck Driver Name Role Phone Feroz Reyes MD Primary Care Provider [phone] Artemio Blunt MD Unavailable Unavailable Cornell Castellon MD Unavailable UnavailTamy Gonzales Unavailable Unavailable Oscar Valiente MD Unavailable Unavailable Bi Frank MD Unavailable Unavailable Encounter Details Date Type Department Care Team Description 07/15/2021 Hospital Medical Records [address] [place] [id number] Jarocho Stacy Social History Tobacco Use Types [...] any clubs o r organizations such as latter day groups, unions, fraternal or athletic groups, or [...] place to sleep or slept in a jail (including now)? No 03/14/2022 Sex Assigned at [...] on filedocumented in this encounter Care Teams Rear Load Truck Driver Relationship Specialty Start Date End Date Feroz Reyes MD [address] [place] [address] PCP - General Internal Medicine 09/29/20 Artemio Blunt MD [address] [place] [id number] Specialist Gastroenterology 03/14/22 Cornell Castellon MD [address] [place] [id number] Specialist Urology 03/14/22 Tamy Chandler FNP [address] [place] [address] Nurse Practitioner Cardiology 03/14/22 Oscar Valiente MD [address] [place] [address] Specialist Cardiology 03/14/22 Bi Frank MD [address] [place] [address] Specialist Ophthalmology 03/14/22 documented as of this encounter
== END 2024-12-01 09:15 | disposition home or self-care (01) ==
LOC: HO.HCS 08:46
PROVIDERS: PCP Internal Medicine; Visit Provider Internal Medicine Cardiovascular Disease
DX: I49.9 Cardiac arrhythmia, unspecified (principal); I10 Essential (primary) hypertension
CPT/HCPCS: 99214; G2211

== ENCOUNTER → 2024-12-01 08:46 | Outpatient (BNVA) | payer OTHER, SELFPAY | PROVIDERS: PCP Internal Medicine; Visit Provider Internal Medicine Cardiovascular Disease | DX: I49.9 Cardiac arrhythmia, unspecified (principal); I10 Essential (primary) hypertension | CPT/HCPCS: 99212 ==

== ENCOUNTER 2025-01-01 16:53 | Emergency (ER) | payer OTHER, SELFPAY ==
--- NOTE | ~2025-01-01 | CT_ITS ---
CLINICAL HISTORY: pain, r o SBO CT abdomen and pelvis with contrast Comparison: CT/SR - CT ABDOMEN PELVIS W IV CON - 11/26/24 01:04 EDT Findings: CT abdomen: Areas of likely linear atelectasis within the lower lobes bilaterally. No focal areas of consolidation. Bones are osteopenic. No acute bony lesions. Gallbladder is surgically absent. No focal hepatic lesions. Main portal vein is patent. Spleen and pancreas are unremarkable. Unchanged right adrenal gland massmeasures 1.6 x 1.5 cm in size. Left adrenal gland is unremarkable. Multiple cysts within the kidneys without solid renal lesion. Interval development of prxb-jc-[id number] dilation of the right renal pelvis and mild dilation of the left renal pelvis. No stone or perinephric stranding is seen. Prominent distention of the stomach. Scattered small bowel air-fluid levels are identified. High-density contrast material seen throughout the majority of the small bowel with extension to the distal ileum. Borderline small bowel dilation measuring up to 3.[address] pelvis: Suture material seen at the rectosigmoid junction. Extensive diverticular disease with wall thickening of the sigmoid colon just proximal to the suture line. Inflammatory stranding surrounding the diverticuli within the distal sigmoid colon concerning for mild or early diverticulitis. No obstructive phenomenon, abscess, or perforation is seen. Liquid stool seen within the more proximal colon. Uterus is surgically absent. Urinary bladder is mildly distended. No bladder calculi. IMPRESSION: 1. Subtle or early findings of sigmoid diverticulitis. No abscess, perforation, or obstruction. 2. Scattered small bowel air-fluid levels, likely related to ileus given the fact that contrast extends to the terminal ileum. 3. Unchanged right adrenal gland mass. This is unchanged compared to the patient's most distant examination from April 20, 2022. Adrenal adenoma would be favored. However, that can not be definitively determined on this single phase study. Correlation with any known primary malignancy is suggested. This document has been electronically signed by: Tayo David MD on 01/01/2025 23:54:58
--- NOTE | ~2025-01-01 | XR_ITS ---
CLINICAL HISTORY: abd pain, ?constipation Two views of the abdomen. COMPARISON: XR abdomen dated 11/25/24 at 16:56 EDT FINDINGS: Surgical clips in the right upper quadrant. Suture material present in the pelvis. Normal bowel distention. Atherosclerotic vascular calcifications. No pneumoperitoneum identified. Qwuectcs-or-ycswv colonic stool burden most pronounced within the ascending and transverse colon. Ztetfpye-pb-uynkzv lower lumbar spondylosis. No fracture identified. IMPRESSION: 1. Nonspecific nonobstructive bowel gas pattern. 2. Xfqjuwxp-hf-wdklk colonic stool burden. This document has been electronically signed by: Pavel Panchal MD on 01/01/2025 18:18:06
--- NOTE | 2025-01-01 17:17 | ED_ITS ---
HPI - Abdominal Pain General Chief Complaint: General Medical Stated Complaint: sharp stomach pains, nausea, dizziness Time Seen by Provider: 01/01/25 20:43 Source: patient Limitations: no limitations History of Present Illness ED Provider: Francheska Domingo PA-C HPI narrative: 84-year-old female with a history of hypertension, hyperlipidemia, PE, DVT, recent diverticulitis who presents with abdominal pain. Patient states she has been constipated for the past 2 weeks, only having minimal bowel movements. Patient developed associated abdominal distention today, with pain across entire lower abdomen, left side greater than right. Unable to describe the nature of her discomfort. Associated nausea and weakness. Minimal flatus from below, no active vomiting or fever. Related Data Home Medications ?Medication ?Instructions ?Recorded ?Confirmed gabapentin 300 mg capsule 300 mg PO BID 09/21/20 12/01/24 nitroglycerin 0.4 mg sublingual 0.4 mg sublingual DIRECTED 06/19/21 12/01/24 tablet diclofenac sodium 1 % topical gel 2 g topical BID 07/13/21 12/01/24 gabapentin 100 mg capsule 100 mg PO BEDTIME 07/13/21 12/01/24 loratadine 10 mg tablet 10 mg PO BEDTIME 05/14/22 12/01/24 calcium carbonate (Antacid 500 mg PO TID 06/27/22 12/01/24 (calcium carbonate)) cholecalciferol (vitamin D3) 25 25 mcg PO DAILY 06/27/22 12/01/24 mcg (1,000 unit) capsule cholestyramine (with sugar) 4 gram 2 g PO DAILY 06/27/22 12/01/24 oral powder acetaminophen 650 mg 650 mg PO Q8H PRN pain 10/16/23 12/01/24 tablet,extended release latanoprost 0.005 % eye drops 1 drp ophthalmic (eye) BEDTIME 10/16/23 12/01/24 potassium chloride 10 mEq 10 meq PO BID 10/16/23 12/01/24 tablet,extended release(part/cryst) (Klor-Con M) rosuvastatin 40 mg tablet 40 mg PO DAILY 10/16/23 12/01/24 timolol maleate 0.5 % eye gel 1 drp ophthalmic (eye) QAM 10/16/23 12/01/24 forming solution amlodipine 5 mg tablet 5 mg PO DAILY 12/02/23 12/01/24 clonazepam 0.5 mg tablet 0.5 mg PO DAILY 12/02/23 12/01/24 cyanocobalamin (vitamin B-12) 1,000 mcg PO DAILY 01/03/24 12/01/24 1,000 mcg tablet (Vitamin B-12) Previous Rx's ?Medication ?Instructions ?Recorded loperamide 2 mg capsule 2 mg PO Q4H PRN loose stool #14 08/31/24 caps nitrofurantoin 100 mg PO Q12H 5 days #10 caps 08/31/24 monohydrate/macrocrystals 100 mg capsule (Macrobid) amoxicillin 875 mg-potassium 1 tab PO BID #20 tabs 11/26/24 clavulanate 125 mg tablet metoprolol succinate 25 mg 25 mg PO DAILY for palpitations 12/15/24 tablet,extended release 24 hr #90 tabs levofloxacin 500 mg tablet 500 mg PO Q24H #6 tabs 01/02/25 metronidazole 500 mg tablet 500 mg PO Q8H 7 days #20 tabs 01/02/25 Allergies Allergy/AdvReac Type Severity Reaction Status Date / Time latex Allergy Severe Rash Verified 01/01/25 17:21 Latex Gloves Allergy Severe rash Uncoded 11/25/24 15:18 Anjali spice Allergy Severe Rash Uncoded 11/25/24 15:18 Review of Systems Review of Systems Yes all other systems are reviewed and are negative Constitutional: Denies fatigue, Denies fever(s) and Reports malaise Cardiovascular: Denies chest pain and Denies dyspnea Respiratory: Denies cough and Denies dyspnea Gastrointestinal: Reports abdominal pain, Denies hematochezia, Reports constipation, Denies diarrhea, Reports nausea and Denies vomiting Endocrine: Denies fatigue [facility] Past Medical History Attestation statement: The following information was validated with the patient. Medical History Hx of flexible sigmoidoscopy (~2017) Hx of diverticulitis of colon Hyperlipidemia Paresthesia Dark stools Pulmonary embolism Chest discomfort Abnormal EKG PAC (premature atrial contraction) Renal cyst Gastritis DVT (deep venous thrombosis) (~2017) Anemia HTN (hypertension) GERD (gastroesophageal reflux disease) Surgical History Hx of colonoscopy History of esophagogastroduodenoscopy (EGD) History of laparoscopic cholecystectomy History of colon resection (~2017) Family History Family History Father No problems noted. Mother No problems noted. Social History Social History Household Members: Children Housing: House Are you a primary care team assistant to a significant other at home: No Do you presently have visiting nurse or other home services: No Alcohol intake: never Patient Tobacco Use Status: Never used Tobacco Smoked in Last 30 Days: No Use of substances other than those prescribed or required for medical reasons: No Advance Directives: Yes Advance Directives on File: Yes Advance Directives Date on File: 10/21/23 service: No Current occupational status: retired Physical Exam ED Vital Signs: Vital Signs - 24 hr 01/01/25 17:18 01/01/25 20:00 01/02/25 00:41 Temperature 97.4 F 98.3 F 98.3 F Pulse Rate 57 53 64 Respiratory Rate 18 16 16 Blood Pressure 139/58 L 173/66 H 146/64 H Pulse Oximetry 99 100 100 Oxygen Delivery Method Room Air Room Air Room Air BMI result Body Mass Index 26.1 Const Other: Her overall well-appearing Orientation/consciousness: patient oriented x3 Resp Effort & Inspection: normal respiratory effort Cardio Other: Normal peripheral perfusion GI Other: Abdomen is soft, mildly distended, mild to moderate tenderness left lower quadrant with a mild involuntary guarding, the patient pulled my hand away as I was palpating the abdomen Skin Other: Warm dry no rash Neuro General: patient oriented x3, gait normal, no focal motor deficits and CN's II- XI intact bilaterally Psych Other: Cooperative Course Course Course Narrative: This is an RME performed by Wilfrid Santizo CNP: Additional HPI, ROS, PE not included below will be deferred to primary provider. patient is an 84-year-old female with past medical history of diverticulitis, hyperlipidemia, pulmonary embolism /DVT, gastritis, hypertension, GERD, anemia reports a few weeks ago seen in the ED for diverticulitis, states she has now been constipated passing very small bowel movements, having severe abdominal pain, nausea, dizziness. Reports this has been ongoing for the past couple of weeks, pain is progressively worsening which prompted her to call her primary care doctor who advised her to come to the ED. plan: Serum labs, EKG, urinalysis Medical Decision Making Medical Decision Making MDM Narrative: 84-year-old female with a history of hypertension, hyperlipidemia, PE, DVT, recent diverticulitis who presents with abdominal pain. Patient states she has been constipated for the past 2 weeks, only having minimal bowel movements. Patient developed associated abdominal distention today, with pain across entire lower abdomen, left side greater than right. Unable to describe the nature of her discomfort. Associated nausea and weakness. Minimal flatus from below, no active vomiting or fever. Problem: Age, recent diverticulitis History: Per patient I have considered the following differential diagnoses: Bowel obstruction, constipation, recurrent diverticulitis, appendicitis Plan: Patient is having some obstructive symptoms, on exam she is objectively distended in his complaining of constipation. We will put in for CT scan to rule out bowel obstruction with the oral contrast. The patient declines analgesia, we will be giving fluid and antiemetic. She just had diverticulitis, she admits she stopped taking the antibiotic secondary to the development of diarrhea, this could be recurrent diverticulitis given her discomfort is more left-sided. Also thought about appendicitis given she is having some degree of discomfort in the right lower abdomen as well. I have independently reviewed the following tests: Labs: Slight leukocytosis, not anemic, no electrolyte abnormality noted, urine not infected CT abdomen and pelvis:MPRESSION: 1. Subtle or early findings of sigmoid diverticulitis. No abscess, perforation, or obstruction. 2. Scattered small bowel air-fluid levels, likely related to ileus given the fact that contrast extends to the terminal ileum. 3. Unchanged right adrenal gland mass. This is unchanged compared to the patient's most distant examination from April 20, 2022. Adrenal adenoma would be favored. However, that can not be definitively determined on this single phase study. Correlation with any known primary malignancy is suggested. This document has been electronically signed by: Tayo David MD on 01/01/2025 23:54:58 Lab Data 01/01/25 17:37 01/01/25 17:37 Labs: Lab Results 01/01/25 01/01/25 Range/Units 17:37 20:34 WBC 12.3 H (4.8-10.8) X10*3/uL RBC 4.02 L (4.20-5.50) X10*6/uL Hgb 11.7 L (12.0-16.0) g/dl Hct 36.2 L (37.0-47.0) % MCV 90.0 (80.0-98.0) fL MCH 29.1 (27.0-33.0) pg MCHC 32.3 (31.0-35.0) g/dl RDW 13.9 (11.0-16.0) % Plt Count 200 (160-400) X10*3/uL MPV 9.9 (9.4-12.3) fL Immature Gran % (Auto) 0.2 (0.0-0.4) % Neut % (Auto) 70.2 (45-73) % Lymph % (Auto) 22.1 (20-40) % [place] % (Auto) 6.5 (2-11) % Eos % (Auto) 0.7 (0-4) % Baso % (Auto) 0.3 (0-2) % Lymph # (Auto) 2.7 (1.2-4.9) X10*3/uL [place] # (Auto) 0.8 (0.1-1.2) X10*3/uL Eos # (Auto) 0.1 (0.0-0.4) X10*3/uL Baso # (Auto) 0.0 (0.0-0.2) X10*3/uL Abs Immat Gran (auto) 0.03 (0.00-0.03) X10*3/uL Absolute Neuts (auto) 8.6 H (2.0-8.3) x10*3/uL Absolute Nucleated RBC 0.000 (0.0-0.012) X10*3/uL Nucleated RBC % (auto) 0.0 (0.0-0.2) /100WBC Sodium 140 (135-145) mmol/L Potassium 3.8 (3.3-5.1) mmol/L Chloride 103 (96-108) mmol/L Carbon Dioxide 28 (22-29) mmol/L Anion Gap 13 (12-20) BUN 15 (9-16) mg/dL Creatinine 0.82 (0.5-1.4) mg/dL Estim Creat Clear Calc 36.9 Estimated GFR > 60 Random Glucose 87 (60-115) mg/dL Calcium 10.3 H (8.4-10.2) mg/dL Total Bilirubin 0.4 (0.0-1.0) mg/dL AST 31 (5-31) U/L ALT 26 (0-31) U/L Alkaline Phosphatase 69 (39-117) U/L Total Protein 6.9 (6.5-8.0) g/dL Albumin 4.1 (3.5-5.0) g/dL Lipase 18 (8-78) U/L Urine Color Yellow Urine Appearance Clear Urine pH 6.0 (5.0-9.0) Ur Specific [place] 1.015 (1.005-1.025) Urine Protein 30 (1+) H (Neg-Trace) mg/dL Urine Glucose (UA) Negative (Negative) mg/dL Urine Ketones Trace (Negative) mg/dL Urine Blood Trace H (Negative) Urine Nitrite Negative (Negative) Ur Leukocyte Esterase Negative (Negative) Urine RBC 0-2 (0-2) /HPF Urine WBC 0-5 (0-5) /HPF Ur Squamous Epith Cells 0-2 (0-2) /HPF Urine Bacteria None Seen (None Seen) Hyaline Casts 0-2 (0-2) /LPF Medications Administered Discontinued Medications Generic Name Dose Route Start Last Admin Trade Name Freq PRN Reason Stop Dose Admin Diatrizoate Meglum/Diatrizoate Sod 30 ml 01/01/25 23:01 01/01/25 23:01 Diatrizoate Meglumine, Sodium 30 Ml Solution PO 01/01/25 23:02 30 ml ONCE ONE Administration Sodium Chloride 500 mls @ 500 mls/hr 01/01/25 20:46 01/01/25 23:45 Ns IV 01/01/25 21:45 Infused .Q1H ONE Infusion Iohexol 85 ml 01/01/25 23:04 01/01/25 23:04 Iohexol 350 Mg/Ml 100 Ml Infus..Btl IV 01/01/25 23:05 85 ml ONCE ONE Administration Levofloxacin 750 mg 01/02/25 00:04 01/02/25 00:28 Levofloxacin 750 Mg Tablet PO 01/02/25 00:05 750 mg ONCE ONE Administration Metronidazole 500 mg 01/02/25 00:04 01/02/25 00:28 Metronidazole 500 Mg Tablet PO 01/02/25 00:05 500 mg ONCE ONE Administration Ondansetron HCl 4 mg 01/01/25 20:45 01/01/25 22:41 Ondansetron Hcl 4 Mg/2 Ml Vial IVPUSH 01/01/25 20:46 4 mg ONCE ONE Administration Discharge Plan Discharge Clinical Impression: Diverticulitis of sigmoid colon, Constipation Patient Disposition: Home, Self-Care Instructions: Diverticulitis (ED), Constipation (ED), Diverticulitis Diet (ED) Additional Instructions: You were found to have early sigmoid diverticulitis. See home care instructions. You were also found to be constipated. The oral contrast that you drank, has already started to act as a laxative, given you started having bowel movements here in the emergency room. Take the Levaquin and the Flagyl as directed, complete the course of antibiotics. You should also be taking a probiotic, and eating yogurt, this will help to replenish the good bacteria in your gut, and helped to deter diarrhea. Be sure to follow up with your primary care provider within 1-2 weeks. Prescriptions: New levofloxacin 500 mg tablet 500 mg PO Q24H Qty: 6 0RF metronidazole 500 mg tablet 500 mg PO Q8H 7 Days Qty: 20 0RF No Action metoprolol succinate 25 mg tablet extended release 24 hr 25 mg PO DAILY Qty: 90 3RF gabapentin 300 mg capsule 300 mg PO BID nitroglycerin 0.4 mg tablet, sublingual 0.4 mg sublingual DIRECTED loratadine 10 mg tablet 10 mg PO BEDTIME gabapentin 100 mg Capsule 100 mg PO BEDTIME diclofenac sodium 1 % Gel 2 g TOPICAL BID cyanocobalamin (vitamin B-12) [Vitamin B-12] 1,000 mcg Tablet 1,000 mcg PO DAILY acetaminophen 650 mg tablet extended release 650 mg PO Q8H PRN (Reason: pain) potassium chloride [Klor-Con M10] 10 mEq tablet,ER particles/crystals 10 meq PO BID latanoprost 0.005 % drops 1 drp ophthalmic (eye) BEDTIME rosuvastatin 40 mg tablet 40 mg PO DAILY timolol maleate 0.5 % gel forming solution 1 drp ophthalmic (eye) QAM amoxicillin-pot clavulanate 875-125 mg tablet 1 tab PO BID Qty: 20 0RF loperamide 2 mg capsule 2 mg PO Q4H PRN (Reason: loose stool) Qty: 14 0RF Rx Instructions: administer after each loose stool until symptoms controlled; do not exceed 8 mg per 24 hrs nitrofurantoin monohyd/m-cryst [Macrobid] 100 mg capsule 100 mg PO Q12H 5 Days Qty: 10 0RF Rx Instructions: must administer with a meal/food calcium carbonate [Antacid (calcium carbonate)] 200 mg calcium (500 mg) tablet,chewable 500 mg PO TID cholestyramine (with sugar) 4 gram powder 2 g PO DAILY cholecalciferol (vitamin D3) 25 mcg (1,000 unit) capsule 25 mcg PO DAILY amlodipine 5 mg tablet 5 mg PO DAILY Protocol: Hold for SBP< HOLD for SBP < : 90 clonazepam 0.5 mg tablet 0.5 mg PO DAILY Interventions: ED Discharge Assessment Last Done: 01/02/25 00:41 Discharge Date/Time: 01/02/25 00:42 Print Language: Malian
[2025-01-01 17:18] VITALS: BP 139/58; PULSE 57; RESP 18; TEMP 36.3; O2SAT 99; BMI 26.1
--- NOTE | 2025-01-01 17:22 | ECG_ITS ---
Test Reason : dizziness Blood Pressure : */* mmHG Vent. Rate : 52 BPM Atrial Rate : 52 BPM P-R Int : 168 ms QRS Dur : 76 ms QT Int : 428 ms P-R-T Axes : 52 33 51 degrees QTcB Int : 398 ms Sinus bradycardia Otherwise normal ECG When compared with ECG of 25-Nov-2024 17:12, T wave inversion no longer evident in Lateral leads Referred By: Marichuy Santizo Electronically Signed By: MATIAS NDIAYE
[2025-01-01 17:40] LABS: MANUAL DIFF FLAG NO
[2025-01-01 17:42] LABS: Basophils Percent Auto 0.3 % (0-2); Eosinophils Absolute Auto 0.1 X10*3/uL (0.0-0.4); Eosinophils Percent Auto 0.7 % (0-4); Hematocrit 36.2 % (37.0-47.0); Hemoglobin 11.7 g/dl (12.0-16.0); Imm Gran Abs Auto 0.03 X10*3/uL (0.00-0.03); Imm Gran Pct Auto 0.2 % (0.0-0.4); Lymphocytes Absolute Auto 2.7 X10*3/uL (1.2-4.9); Lymphocytes Percent Auto 22.1 % (20-40); Mean Corpuscular HGB Conc 32.3 g/dl (31.0-35.0); Mean Corpuscular Hemoglobin 29.1 pg (27.0-33.0); Mean Platelet Volume 9.9 fL (9.4-12.3); Monocytes Absolute Auto 0.8 X10*3/uL (0.1-1.2); Monocytes Percent Auto 6.5 % (2-11); Neutrophils Absolute Auto 8.6 x10*3/uL (2.0-8.3); Neutrophils Percent Auto 70.2 % (45-73); Platelet Count 200 X10*3/uL (160-400); Red Blood Count 4.02 X10*6/uL (4.20-5.50); Red Cell Distribution Width 13.9 % (11.0-16.0); White Blood Count 12.3 X10*3/uL (4.8-10.8)
[2025-01-01 18:10] LABS: Alanine Aminotransferase 26 U/L (0-31); Albumin Level 4.1 g/dL (3.5-5.0); Anion Gap 13 (12-20); Aspartate Amino Transferase 31 U/L (5-31); Bilirubin Total 0.4 mg/dL (0.0-1.0); Blood Urea Nitrogen 15 mg/dL (9-16); Calcium 10.3 mg/dL (8.4-10.2); Carbon Dioxide 28 mmol/L (22-29); Chloride 103 mmol/L (96-108); Creatinine Clr Calc Pharmacy 36.9; Estimated Glomerular Filt Rate > 60; Glucose Random 87 mg/dL (60-115); Lipase 18 U/L (8-78); Potassium 3.8 mmol/L (3.3-5.1); Sodium 140 mmol/L (135-145); Total Protein 6.9 g/dL (6.5-8.0)
[2025-01-01 19:06] LABS: Alkaline Phosphatase 69 U/L (39-117)
[2025-01-01 20:00] VITALS: BP 173/66; PULSE 53; RESP 16; TEMP 36.8; O2SAT 100
[2025-01-01 20:39] LABS: Appearance Urine Clear; Color Urine Yellow; Glucose Urine UA Negative (Negative); Leukocyte Esterase Urine Negative (Negative); Nitrite Urine Negative (Negative); Specific Gravity - Urine 1.015 (1.005-1.025); UMIC TRIGGER UACC YES; Urine Blood Trace (Negative); Urine Ketones Trace mg/dL (Negative); Urine Protein 30 (1+) mg/dL (Neg-Trace)
[2025-01-01 20:44] LABS: Bacteria Urine None Seen (None Seen); Hyaline Casts Urine 0-2 /LPF (0-2); RBC Urine 0-2 /HPF (0-2); Squamous Epithelial Cell Urine 0-2 /HPF (0-2); WBC Urine 0-5 /HPF (0-5)
--- NOTE | 2025-01-01 21:06 | PC.NURSE ---
2x attempt for iv. 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
--- NOTE | 2025-01-01 21:33 | PC.NURSE ---
no success for IV, Ebony lainez will attempt u/s iv.
--- NOTE | 2025-01-01 22:27 | PC.NURSE ---
u/s iv obtained by
[2025-01-01] MEDS: ondansetron HCL 4 MG/2 ML VIAL IVPUSH (22:41)
[2025-01-01] MEDS: 0.9 % Sodium Chloride 500 ML IV (22:42)
[2025-01-01] MEDS: Diatrizoate Meglumine, Sodium 30 ML SOLUTION PO (23:01)
[2025-01-01] MEDS: iohexoL 350 MG/ML 100 ML INFUS..BTL 85 ML IV (23:04)
--- NOTE | 2025-01-01 23:10 | MHC.EDTECH ---
this tech assumed care of pt @[phone]
[2025-01-02] MEDS: levoFLOXacin 750 MG TABLET PO (00:28)
[2025-01-02] MEDS: metroNIDAZOLE 500 MG TABLET PO (00:28)
[2025-01-02 00:41] VITALS: BP 146/64; PULSE 64; RESP 16; TEMP 36.8; O2SAT 100
== END 2025-01-02 00:42 | disposition home or self-care (01) ==
PROVIDERS: Nurse Practitioner Family; Emergency Provider Emergency Medicine; PCP Internal Medicine
DX: K57.32 Diverticulitis of large intestine without perforation or abscess without bleeding (principal); K59.00 Constipation, unspecified; I10 Essential (primary) hypertension; Z86.718 Personal history of other venous thrombosis and embolism; Z79.02 Long term (current) use of antithrombotics/antiplatelets; Z79.899 Other long term (current) drug therapy
CPT/HCPCS: 36415; 74018; 74177; 80053; 81001; 83690; 85025; 93005; 96361; 96374; 99284; J2405; Q9967

== ENCOUNTER → 2025-01-01 17:22 | Outpatient (BNV) | payer OTHER, SELFPAY | PROVIDERS: PCP Internal Medicine; Visit Provider Radiology Diagnostic Radiology | DX: R10.9 Unspecified abdominal pain (principal) | CPT/HCPCS: 74177 ==

== ENCOUNTER → 2025-01-01 17:22 | Outpatient (BNV) | payer OTHER, SELFPAY | PROVIDERS: Emergency Provider Emergency Medicine; PCP Internal Medicine; Visit Provider Internal Medicine | DX: R00.1 Bradycardia, unspecified (principal) | CPT/HCPCS: 93010 ==

== ENCOUNTER 2025-04-05 17:24 | Emergency (ER) | payer OTHER, SELFPAY ==
--- NOTE | ~2025-04-05 | CT_ITS ---
CLINICAL HISTORY: Lower abdominal pain? Diverticulitis CT abdomen and pelvis without contrast Comparison: CT/SR - CT ABDOMEN PELVIS W IV CON - 01/01/25 22:56 EDT Findings: Atelectasis. Cardiomegaly without significant pericardial effusion. Coronary artery calcifications. Bilateral hypodense, intermediate dense and possible tiny hemorrhagic renal cysts, better evaluated on prior exam. If clinical concern persists consider follow-up MRI. No significant hydronephrosis. No urolithiasis. Colonic diverticulosis with subtle peridiverticular stranding series 7, image 27 for example of the sigmoid diverticulitis. No evidence of complication. Of note, finding is in similar distribution to prior. No bowel obstruction. Evidence of prior bowel resection with a midline anastomosis in the pelvis. Post hysterectomy. Osteopenia with diffuse multilevel spondylosis. Grade 1 anterolisthesis at L5-S1. Tarlov cysts. Diffuse atheromatous plaque disease throughout the aorta and branch vessels, without aneurysmal dilatation. Postcholecystectomy. IMPRESSION: Possible, uncomplicated early sigmoid diverticulitis. This document has been electronically signed by: Luciano Grey MD on 04/05/2025 22:27:27
[2025-04-05 17:54] VITALS: BP 137/57; BP 141/56; PULSE 48; PULSE 53; RESP 16; TEMP 36.4; O2SAT 98; BMI 24.9
--- NOTE | 2025-04-05 17:59 | PC.NURSE ---
Pt comes from home after after having an episode of near syncope and diaphoresis. Pt has been having N/V/soft stools since saturday. Once pain went away so did her symptoms. Pt is A/Ox4. reporting lower abd pain at this time, denies urinary symptoms, fevers. IV placed by EMS ivf given along with zofran given with good effect.
--- NOTE | 2025-04-05 18:07 | ECG_ITS ---
Test Reason : WEAKNESS Blood Pressure : */* mmHG Vent. Rate : 54 BPM Atrial Rate : 54 BPM P-R Int : 190 ms QRS Dur : 92 ms QT Int : 426 ms P-R-T Axes : 57 44 56 degrees QTcB Int : 403 ms Sinus bradycardia Otherwise normal ECG When compared with ECG of 01-Jan-2025 17:28, No significant change was found Referred By: Tracey Montiel Electronically Signed By: Tyson Kirby
--- NOTE | 2025-04-05 18:20 | ED.ABDPAIN ---
HPI - Abdominal Pain General Chief Complaint: Abdominal Pain Stated Complaint: weakness Time Seen by Provider: 04/05/25 18:15 Source: patient Mode of arrival: EMS Limitations: no limitations History of Present Illness ED Provider: HPI narrative: Patient with History of diverticulitis last episode was 02/17 comes here for sudden onset of pain in the lower abdominal pain started at 16:30 associated with chills and nausea had 2 loose bowels no blood in his stool no other family member sick Related Data Home Medications ?Medication ?Instructions ?Recorded ?Confirmed gabapentin 300 mg capsule 300 mg PO BID 09/21/20 12/01/24 nitroglycerin 0.4 mg sublingual 0.4 mg sublingual DIRECTED 06/19/21 12/01/24 tablet diclofenac sodium 1 % topical gel 2 g topical BID 07/13/21 12/01/24 gabapentin 100 mg capsule 100 mg PO BEDTIME 07/13/21 12/01/24 loratadine 10 mg tablet 10 mg PO BEDTIME 05/14/22 12/01/24 calcium carbonate (Antacid 500 mg PO TID 06/27/22 12/01/24 (calcium carbonate)) cholecalciferol (vitamin D3) 25 25 mcg PO DAILY 06/27/22 12/01/24 mcg (1,000 unit) capsule cholestyramine (with sugar) 4 gram 2 g PO DAILY 06/27/22 12/01/24 oral powder acetaminophen 650 mg 650 mg PO Q8H PRN pain 10/16/23 12/01/24 tablet,extended release latanoprost 0.005 % eye drops 1 drp ophthalmic (eye) BEDTIME 10/16/23 12/01/24 potassium chloride 10 mEq 10 meq PO BID 10/16/23 12/01/24 tablet,extended release(part/cryst) (Klor-Con M) rosuvastatin 40 mg tablet 40 mg PO DAILY 10/16/23 12/01/24 timolol maleate 0.5 % eye gel 1 drp ophthalmic (eye) QAM 10/16/23 12/01/24 forming solution amlodipine 5 mg tablet 5 mg PO DAILY 12/02/23 12/01/24 clonazepam 0.5 mg tablet 0.5 mg PO DAILY 12/02/23 12/01/24 cyanocobalamin (vitamin B-12) 1,000 mcg PO DAILY 01/03/24 12/01/24 1,000 mcg tablet (Vitamin B-12) Previous Rx's ?Medication ?Instructions ?Recorded loperamide 2 mg capsule 2 mg PO Q4H PRN loose stool #14 08/31/24 caps nitrofurantoin 100 mg PO Q12H 5 days #10 caps 08/31/24 monohydrate/macrocrystals 100 mg capsule (Macrobid) amoxicillin 875 mg-potassium 1 tab PO BID #20 tabs 11/26/24 clavulanate 125 mg tablet metoprolol succinate 25 mg 25 mg PO DAILY for palpitations 12/15/24 tablet,extended release 24 hr #90 tabs levofloxacin 500 mg tablet 500 mg PO Q24H #6 tabs 01/02/25 metronidazole 500 mg tablet 500 mg PO Q8H 7 days #20 tabs 01/02/25 amoxicillin 875 mg-potassium 1 tab PO BID #20 tabs 04/06/25 clavulanate 125 mg tablet ondansetron 4 mg disintegrating 4 mg PO Q6-8H PRN nausea and 04/06/25 tablet vomiting #7 tabs Allergies Allergy/AdvReac Type Severity Reaction Status Date / Time latex Allergy Severe Rash Verified 04/05/25 17:57 Latex Gloves Allergy Severe rash Uncoded 04/05/25 17:57 Anjali spice Allergy Severe Rash Uncoded 04/05/25 17:57 Review of Systems Review of Systems Yes all other systems are reviewed and are negative PMFSH Past Medical History Medical History Hx of flexible sigmoidoscopy (~2016) Hx of diverticulitis of colon Hyperlipidemia Paresthesia Dark stools Pulmonary embolism Chest discomfort Abnormal EKG PAC (premature atrial contraction) Renal cyst Gastritis DVT (deep venous thrombosis) (~2017) Anemia HTN (hypertension) GERD (gastroesophageal reflux disease) Surgical History Hx of colonoscopy History of esophagogastroduodenoscopy (EGD) History of laparoscopic cholecystectomy History of colon resection (~2017) Family History Family History Father No problems noted. Mother No problems noted. Social History Social History Household Members: Children Housing: House Are you a primary special needs caregiver to a significant other at home: No Do you presently have visiting nurse or other home services: No Alcohol intake: never Patient Tobacco Use Status: Never used Tobacco Advance Directives: Yes Advance Directives on File: Yes Advance Directives Date on File: 10/21/23 service: No Current occupational status: retired Physical Exam ED Vital Signs: Vital Signs - 24 hr 04/05/25 17:54 04/05/25 23:56 Temperature 97.6 F 97.7 F Pulse Rate 53 61 Respiratory Rate 16 16 Blood Pressure 141/56 H 163/56 H Pulse Oximetry 98 98 Oxygen Delivery Method Room Air Room Air BMI result Body Mass Index 24.9 Appearance: Alert. Oriented X3. No acute distress. Eyes: No pallor or icterus ENT: Pharynx normal. Oral Mucosa moist Neck: Normal inspection. Neck supple. CVS: Normal heart rate and rhythm. Pulses normal. Respiratory: No respiratory distress. Equal air entry bilateral, no wheezing/rales/rhonchi Abdomen: Soft and diffuse tenderness lower abdomen no rebound tenderness or guarding. Bowel sounds are present, no mass palpable, no CVA tenderness Skin: Skin warm and dry. Normal skin color. Normal skin turgor. Extremities: No lower extremity edema. No calf tenderness Neuro: Oriented X 3. No motor deficit. No sensory deficit.No cerebellar signs , cranial nerves II-XII intact Medical Decision Making Medical Decision Making [facility] Narrative: Patient's left lower quadrant pain with history of diverticulitis CT scan negative for significant inflammation shows acute sigmoid diverticulitis labs are stable will give her p.o. antibiotics. Patient was given 1 dose ofZosyn in the ER Differential Diagnosis Differential Diagnoses: The differential diagnosis associated with the presentation includes Diverticulitis slight diverticulosis/renal colic/UTI Lab Data [facility] Lab Attestation statement: I reviewed the patient's lab results. 04/05/25 20:06 04/05/25 18:49 Labs: Lab Results 04/05/25 04/05/25 04/05/25 Range/Units 18:49 18:55 20:06 WBC 11.9 H (4.8-10.8) X10*3/uL RBC 4.11 L (4.20-5.50) X10*6/uL Hgb 12.3 (12.0-16.0) g/dl Hct 37.0 (37.0-47.0) % MCV 90.0 (80.0-98.0) fL MCH 29.9 (27.0-33.0) pg MCHC 33.2 (31.0-35.0) g/dl RDW 13.5 (11.0-16.0) % Plt Count 222 (160-400) X10*3/uL MPV 9.8 (9.4-12.3) fL Immature Gran % (Auto) 0.3 (0.0-0.4) % Neut % (Auto) 76.0 H (45-73) % Lymph % (Auto) 18.7 L (20-40) % [place] % (Auto) 4.4 (2-11) % Eos % (Auto) 0.3 (0-4) % Baso % (Auto) 0.3 (0-2) % Lymph # (Auto) 2.2 (1.2-4.9) X10*3/uL [place] # (Auto) 0.5 (0.1-1.2) X10*3/uL Eos # (Auto) 0.0 (0.0-0.4) X10*3/uL Baso # (Auto) 0.0 (0.0-0.2) X10*3/uL Abs Immat Gran (auto) 0.03 (0.00-0.03) X10*3/uL Absolute Neuts (auto) 9.1 H (2.0-8.3) x10*3/uL Absolute Nucleated RBC 0.000 (0.0-0.012) X10*3/uL Nucleated RBC % (auto) 0.0 (0.0-0.2) /100WBC Sodium 143 (135-145) mmol/L Potassium 4.2 (3.3-5.1) mmol/L Chloride 109 H (96-108) mmol/L Carbon Dioxide 26 (22-29) mmol/L Anion Gap 12 (12-20) BUN 19 H (9-16) mg/dL Creatinine 0.97 (0.5-1.4) mg/dL Estim Creat Clear Calc 30.5 Estimated GFR 55 Random Glucose 99 (60-115) mg/dL Lactic Acid 1.0 (0.5-2.0) mmol/L Calcium 9.9 (8.4-10.2) mg/dL Magnesium 2.1 (1.6-2.6) mg/dL Total Bilirubin 0.3 (0.0-1.0) mg/dL AST 19 (5-31) U/L ALT 16 (0-31) U/L Alkaline Phosphatase 68 (39-117) U/L Total Protein 6.5 (6.5-8.0) g/dL Albumin 3.9 (3.5-5.0) g/dL Influenza Type A (PCR) NEGATIVE (Negative) Influenza Type B (PCR) NEGATIVE (Negative) RSV RNA Qual (PCR) NEGATIVE (Negative) SARS-CoV-2 RNA (RT-PCR) NEGATIVE (Negative) Medications Administered Discontinued Medications Generic Name Dose Route Start Last Admin Trade Name Freq PRN Reason Stop Dose Admin Sodium Chloride 1,000 mls @ 999 mls/hr 04/05/25 18:31 04/05/25 21:30 Ns IV 04/05/25 19:31 Infused .Q1H1M ONE Infusion Piperacillin Sod/Tazobactam 50 mls @ 100 mls/hr 04/05/25 23:46 04/06/25 01:26 Sod 3.375 gm/ Sodium Chloride IV 04/06/25 00:15 Infused ONCE ONE Infusion Discharge Plan Discharge Clinical Impression: Diverticulitis Patient Disposition: Home, Self-Care Instructions: Diverticulitis (ED) Additional Instructions: Clear liquids advanced as tolerated Take antibiotic as prescribed Report to the ER if increase in pain/fever blood in stool Prescriptions: New amoxicillin-pot clavulanate 875-125 mg tablet 1 tab PO BID Qty: 20 0RF ondansetron 4 mg tablet,disintegrating 4 mg PO Q6-8H PRN (Reason: nausea and vomiting) Qty: 7 0RF No Action metoprolol succinate 25 mg tablet extended release 24 hr 25 mg PO DAILY Qty: 90 3RF gabapentin 300 mg capsule 300 mg PO BID nitroglycerin 0.4 mg tablet, sublingual 0.4 mg sublingual DIRECTED loratadine 10 mg tablet 10 mg PO BEDTIME gabapentin 100 mg Capsule 100 mg PO BEDTIME diclofenac sodium 1 % Gel 2 g TOPICAL BID cyanocobalamin (vitamin B-12) [Vitamin B-12] 1,000 mcg Tablet 1,000 mcg PO DAILY acetaminophen 650 mg tablet extended release 650 mg PO Q8H PRN (Reason: pain) potassium chloride [Klor-Con M10] 10 mEq tablet,ER particles/crystals 10 meq PO BID latanoprost 0.005 % drops 1 drp ophthalmic (eye) BEDTIME rosuvastatin 40 mg tablet 40 mg PO DAILY timolol maleate 0.5 % gel forming solution 1 drp ophthalmic (eye) QAM amoxicillin-pot clavulanate 875-125 mg tablet 1 tab PO BID Qty: 20 0RF levofloxacin 500 mg tablet 500 mg PO Q24H Qty: 6 0RF metronidazole 500 mg tablet 500 mg PO Q8H 7 Days Qty: 20 0RF loperamide 2 mg capsule 2 mg PO Q4H PRN (Reason: loose stool) Qty: 14 0RF Rx Instructions: administer after each loose stool until symptoms controlled; do not exceed 8 mg per 24 hrs nitrofurantoin monohyd/m-cryst [Macrobid] 100 mg capsule 100 mg PO Q12H 5 Days Qty: 10 0RF Rx Instructions: must administer with a meal/food calcium carbonate [Antacid (calcium carbonate)] 200 mg calcium (500 mg) tablet,chewable 500 mg PO TID cholestyramine (with sugar) 4 gram powder 2 g PO DAILY cholecalciferol (vitamin D3) 25 mcg (1,000 unit) capsule 25 mcg PO DAILY amlodipine 5 mg tablet 5 mg PO DAILY Protocol: Hold for SBP< HOLD for SBP < : 90 clonazepam 0.5 mg tablet 0.5 mg PO DAILY Print Language: Spanish
--- NOTE | 2025-04-05 18:28 | MHC.EDTECH ---
Pt very difficult stick. her veins blow immediately after needle insertion. unable to obtain PT/INR at this time. RN aware
[2025-04-05 19:10] LABS: Alanine Aminotransferase 16 U/L (0-31); Albumin Level 3.9 g/dL (3.5-5.0); Alkaline Phosphatase 68 U/L (39-117); Anion Gap 12 (12-20); Aspartate Amino Transferase 19 U/L (5-31); Blood Urea Nitrogen 19 mg/dL (9-16); Calcium 9.9 mg/dL (8.4-10.2); Carbon Dioxide 26 mmol/L (22-29); Chloride 109 mmol/L (96-108); Creatinine Clr Calc Pharmacy 30.5; Estimated Glomerular Filt Rate 55; Magnesium 2.1 mg/dL (1.6-2.6); Potassium 4.2 mmol/L (3.3-5.1); Sodium 143 mmol/L (135-145); Total Protein 6.5 g/dL (6.5-8.0)
[2025-04-05 20:09] LABS: MANUAL DIFF FLAG NO
[2025-04-05 20:10] LABS: Hematocrit 37.0 % (37.0-47.0); Hemoglobin 12.3 g/dl (12.0-16.0); Imm Gran Abs Auto 0.03 X10*3/uL (0.00-0.03); Imm Gran Pct Auto 0.3 % (0.0-0.4); Lymphocytes Absolute Auto 2.2 X10*3/uL (1.2-4.9); Mean Corpuscular HGB Conc 33.2 g/dl (31.0-35.0); Mean Corpuscular Hemoglobin 29.9 pg (27.0-33.0); Mean Corpuscular Volume 90.0 fL (80.0-98.0); NRBC Abs Auto 0.000 X10*3/uL (0.0-0.012); NRBC Pct Auto 0.0 /100WBC (0.0-0.2); Platelet Count 222 X10*3/uL (160-400); Red Blood Count 4.11 X10*6/uL (4.20-5.50); White Blood Count 11.9 X10*3/uL (4.8-10.8)
[2025-04-05 20:23] LABS: Resp Syncy Virus RNA Qual PCR NEGATIVE (Negative); SARS COV2 PCR INHOUSE NEGATIVE (Negative)
[2025-04-05 23:56] VITALS: BP 163/56; PULSE 61; RESP 16; TEMP 36.5; O2SAT 98
[2025-04-06 04:16] VITALS: BP 163/56; PULSE 61; RESP 16; TEMP 36.5; O2SAT 98
== END 2025-04-06 02:00 | disposition home or self-care (01) ==
PROVIDERS: Physician Assistant Medical; Emergency Provider Internal Medicine
DX: K57.92 Diverticulitis of intestine, part unspecified, without perforation or abscess without bleeding (principal); I10 Essential (primary) hypertension; Z87.19 Personal history of other diseases of the digestive system; Z86.79 Personal history of other diseases of the circulatory system; Z79.899 Other long term (current) drug therapy
CPT/HCPCS: 36415; 74176; 80053; 83605; 83735; 85025; 87637; 93005; 96361; 96365; 99284; 99285; J2543

== ENCOUNTER → 2025-04-05 18:07 | Outpatient (BNV) | payer OTHER, SELFPAY | PROVIDERS: Emergency Provider Internal Medicine; Visit Provider Internal Medicine Cardiovascular Disease | DX: R00.1 Bradycardia, unspecified (principal) | CPT/HCPCS: 93010 ==

== ENCOUNTER → 2025-04-05 21:41 | Outpatient (BNV) | payer OTHER, MEDICAID, SELFPAY | PROVIDERS: Emergency Provider Internal Medicine; Visit Provider Radiology Diagnostic Radiology | DX: R10.30 Lower abdominal pain, unspecified (principal) | CPT/HCPCS: 74176 ==

== ENCOUNTER 2025-04-20 07:57 | Outpatient (AMB) | payer MEDICAID, SELFPAY ==
--- OUTSIDE RECORDS SUMMARY | 2025-04-16 09:15 | XMS_ITS | Encounter Summary ---
Author Organization [facility] Address [address] [place] [address] Care Team Providers Care [employer] History Teacher Name Role Phone Feroz Reyes MD Primary Care Provider [phone] Reason for Referral * Imaging (Routine) - Authorized Specialty Diagnoses / Procedures Referred By Contac t Referred To Contact Radiology Diagnoses Coccygeal pain Spinal stenosis of lumbar region without neurogenic claudication Procedures MR Lumbar Spine wo Contrast Kiya Balbuena NP [address] [place], [place] Phone: tel: fax: [address] Phone: tel: Referral ID Status Reason Start Date Expiration Date V isits Requested Visits Authorized [id number] Authorized 03/24/2025 05/26/2025 1 1 Reason for Visit * Imaging (Routine) - Authorized Specialty Diagnoses / Procedures Referred By Contac t Referred To Contact Radiology Diagnoses Coccygeal pain Spinal stenosis of lumbar region without neurogenic claudication Procedures MR Lumbar Spine wo Contrast Kiya Balbuena NP [address] [place], [place] Phone: tel: fax: [address] Phone: tel: Referral ID Status Reason Start Date Expiration Date V isits Requested Visits Authorized [id number] Authorized 03/24/2025 05/26/2025 1 1 Encounter Details Date Type Department Care Team (Latest Contact Info) Description 04/16/2025 9:15 AM EDT - 04/16/2025 11:59 PM EDT Hospital Encounter Radiology Department - [address] [phone] Coccygeal pain; Spinal stenosis of lumbar region without neurogenic claudication Discharge Disposition: Home or Self Care Social History Tobacco Use Types Packs/Day Years Used Date Smoking Tobacco: Never Smokeless Tobacco: Never Alcohol Use Standard Drinks/Week Comments Not Currently 0 (1 standard drink = 0.6 oz pur e alcohol) Housing Instability Answer Date Recorde d Are you worried that in the next 2 months you may not have stable housing? No 04/06/2025 Food Access & Nutrition Answer Date Rec orded Do you have access to a vari ety of food including fruits and vegetables? Yes 04/06/2025 Access to Healthcare Answer Date Record ed Within the last 3 months, juliane chua many times did you visit the emergency department for your medical care? 1 04/06/2025 Health Literacy Answer Date Recorded How often do you need to hav e someone help you when you read instructions, pamphlets, or other written material from your doctor or pharmacy? Never 04/06/2025 Caregiver: How often do you need to have someone help you when you read instructions, pamphlets, or other written material from your doctor or pharmacy? Not on file 04/06/2025 Financial Risk Answer Date Recorded How hard is it for you to pa y for the very basics like food, housing, medical care, and air conditioning / heating? Not very hard 04/06/2025 Transportation Answer Date Recorded Has the lack of transportati on kept you from meetings, work, or from getting things needed for daily living? No Has the lack of transportati on kept you from medical appointments or from getting medications? No 04/06/2025 Social Isolation Answer Date Recorded How often do you feel lonely or isolated from th ose around you? Never 04/06/2025 Food Risk Answer Date Recorded Within the past 12 months we worried whether our food would run out before we got money to buy more. Never true 04/06/2025 Within the past 12 months th e food we bought just didn't last and we didn't have money to get more. Never true 04/06/2025 Dependent Care Answer Date Recorded Do you need help finding or paying for care for your loved ones. For example, child support officer or elderly care for an older adult? No 04/06/2025 Education Answer Date Recorded Do you think completing more education or training, like finishing a GED, going to college, or learning a trade, would be helpful for you? No 04/06/2025 Employment and Income Answer Date Recor ded During the last four weeks, have you been actively looking for work? No 04/06/2025 Living Situation Answer Date Recorded What is your living situation? 0 04/06/2025 Comments No Sex and Gender Information Value Date Recorded Sex Assigned at Not on file Legal Sex Female 9:11 PM EST Gender Identity Not on file Sexual Orientation Not on file documented as of this encounter Medications at Time of Discharge acetaminophen (TYLENOL 8 HOUR) 650 mg 8 hr tablet Take 1 Tablet by mouth every 8 hours as needed for Pain. 01/16/2024 amLODIPine (NORVASC) 5 mg tablet TAKE 1 TABLET BY MOUTH DAILY 90 tablet 1 03/15/2025 amoxicillin-clavula jh (AUGMENTIN) 875-125 mg per tablet Take 1 tablet by mouth 2 (two) times a day. 04/05/2025 brimonidine (ALPHAGAN P) 0.15 % ophthalmic solution 2 times daily. 02/07/2024 calcium carbonate (CALCIUM 500 ORAL) CALCIUM 500-2.5 MG-MCG CHEW TAB: Take by mouth daily. calcium carbonate EX (Antacid Extra-Strength) 300 mg (750 mg) chewable tablet Take 1 Tablet by mouth daily. CHOLECALCIFEROL, VITAMIN D3, ORAL Take 1,000 mg by mouth. cholestyramine (QUESTRAN) 4 gram powder 08/04/2021 cyanocobalamin (VIT B-12) 1,000 mcg tablet extended release ER tablet Take by mouth daily. diclofenac (VOLTAREN) 1 % topical gel Apply topically 2 times daily. gabapentin (NEURONTIN) 100 mg capsule TAKE 1 CAPSULE BY MOUTH EVERY NIGHT IN ADDITION TO 300 MG CAPSULE 90 capsule 1 12/14/2024 gabapentin (NEURONTIN) 300 mg capsule TAKE 1 CAPSULE BY MOUTH TWICE DAILY (in addition to 100 MG capsule at night) 180 capsule 1 12/02/2024 lidocaine (LIDODERM) 5 % patch Apply 1 patch topically 1 (one) time each day. 08/29/2024 loperamide (IMODIUM) 2 mg capsule Take 1 capsule (2 mg total) by mouth if needed. 2024 loratadine (CLARITIN) 10 mg tablet TAKE 1 TABLET BY MOUTH ONE TIME EACH DAY 90 tablet 1 03/15/2025 metoprolol succinate (TOPROL-XL) 25 mg 24 hr tablet 1 Tablet daily. 01/02/2024 netarsudiL (Rhopressa) 0.02 % drops 05/08/2024 nitroglycerin (NITROSTAT) 0.[address] 1 Tablet under the tongue every 5 minutes as needed for Chest pain. 09/21/2022 ondansetron ODT (ZOFRAN-ODT) 4 mg disintegrating tablet 04/05/2025 potassium chloride (KLOR-CON) 10 mEq CR tablet TAKE 1 TABLET BY MOUTH TWICE DAILY 180 tablet 1 04/05/2025 prednisoLONE acetate (PRED FORTE) 1 % ophthalmic suspension Administer 1 drop into both eyes 2 (two) times a day. 02/04/2025 rosuvastatin (CRESTOR) 40 mg tablet Take 1 tablet (40 mg total) by mouth 1 (one) time each day. 90 tablet 1 12/04/2024 documented as of this encounter Discharge Disposition Disposition Code Departure Means Destination Home or Self Care documented in this encounter Plan of Treatment Upcoming Encounters Date Type Department Care Team (Late st Contact Info) Description 05/11/2025 2:30 PM EDT Office Visit Internal Medicine - [address] [phone] Darius Montoya NP [address] [place] [id number] 07/27/2025 9:30 AM EST Office Visit Internal Medicine - [address] [phone] Feroz Reyes MD [address] [place] [address] 03/31/2026 10:30 AM EDT Appointment [facility] Ultrasound [address] [place] [id number] 04/06/2026 10:30 AM EDT Office Visit Vascular Surgery - [place] [address] [place] [phone] Karol Schafer MD [address] [place] [address] documented as of this encounter Procedures Procedure Name Priority Date/Time Associated Diagnosis Comments MR LUMBAR SPINE WO CONTRAST Routine 04/16/2025 10:02 AM EDT Coccygeal pain Spinal stenosis of lumbar region without neurogenic claudication documented in this encounter Results * MR Lumbar Spine wo Contrast (04/16/2025 10:02 AM EDT) Anatomical Region Laterality Modality L-spine, Spine Magnetic Resonan ce 04/16/2025 5:35 PM EDT Narrative 04/18/2025 4:45 PM EDT MRI of the lumbosacral spine without intravenous contrast. HISTORY: Low back pain. Examination was performed on 1.5 Kristal magnet without administration of intravenous contrast. Comparison is prior study from 10/08/2022. Conus medullaris terminates at L2 level. Vertebral bodies are maintained in height and signal intensity. T12-L1 disc is mildly desiccated. There is minimal bulging of the disc. No focal disc herniation spinal stenosis or nerve root compression. At L1-2 level there is minimal retrolisthesis of L1 over L2. There is bulging of the disc and mild hypertrophy of the facet joints. There is mild narrowing of the L1 neural foramina with effacement of the L1 nerve roots. At L2-3 level there is mild diffuse bulging of the disc and mild hypertrophy of the facet joints. There is no focal disc herniation spinal stenosis. There is mild narrowing of the L2 neural foramina with effacement of the L2 nerve roots. At L3-4 level disc is desiccated. There is mild bulging of the disc more prominent to the left. There is small tear of the annulus fibrosis on the left. There is narrowing of the lateral recesses and L3 neural foramina with effacement of the right L3 nerve root and compression of the left L3 nerve root. At L4-5 level disc is desiccated. There is diffuse bulging of the disc with some broad-based left lateral protrusion. There is stenosis of the lateral recesses and L4 neural foramina with compression of the L4 nerve roots. There are hypertrophic changes in the facet joints, prominence of the ligamentum flavum contributing to severe spinal stenosis. There is clumping of the nerve roots within the spinal canal at this level. At L5-S1 level there is mild anterior displacement of L5 over S1. Disc is decreased in height and T2 signal. There is a tear of the annulus fibrosis and diffuse bulging of the disc. There is also small central herniation of the disc there are marked degenerative changes in the facet joints with possible fusion of the facet joints. There is narrowing of the lateral recesses and L5 neural foramina more prominent on the left. There is effacement of the L5 nerve roots, left more than right. 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 Note was made of atrophic changes in the paraspinal muscles. There are multiple T2 bright lesions within the kidneys bilaterally as well as large central lesion in the right kidney, consistent with cysts. CONCLUSIONS: Multilevel bony and discs degenerative changes as detailed. Severe spinal stenosis at L4-5 level. Stenosis of the lateral recesses and neural foramina at multiple levels as detailed. Additional findings in the report. No significant interval change since previous examination. -------- FINAL REPORT -------- Dictated By: Sraa Espinoza Dictated Date: 04/16/2025 17:35 ET Assigned Physician: Sara Espinoza Reviewed and Electronically Signed By: Sara Espinoza Signed Date: 04/18/2025 16:45 ET Workstation ID: [id number] Transcribed By: Self Edit Transcribed Date: 04/16/2025 19:54 ET Procedure Note Sara Espinoza MD - 04/18/2025 MRI of the lumbosacral spine without intravenous contrast. HISTORY: Low back pain. Examination was performed on 1.5 Kristal magnetwithout administration of intravenous contrast. Comparison is prior studyfrom 10/08/2022. Conus medullaris terminates at L2 level. Vertebral bodies are maintainedin height and signal intensity. T12-L1 disc is mildly desiccated. There is minimal bulging of the disc. Nofocal disc herniation spinal stenosis or nerve root compression. At L1-2 level there is minimal retrolisthesis of L1 over L2. There isbulging of the disc and mild hypertrophy of the facet joints. There ismild narrowing of the L1 neural foramina with effacement of the L1 nerveroots. At L2-3 level there is mild diffuse bulging of the disc and mildhypertrophy of the facet joints. There is no focal disc herniation spinalstenosis. There is mild narrowing of the L2 neural foramina witheffacement of the L2 nerve roots. At L3-4 level disc is desiccated. There is mild bulging of the disc moreprominent to the left. There is small tear of the annulus fibrosis on theleft. There is narrowing of the lateral recesses and L3 neural foraminawith effacement of the right L3 nerve root and compression of the left [id number] root. At L4-5 level disc is desiccated. There is diffuse bulging of the discwith some broad-based left lateral protrusion. There is stenosis of thelateral recesses and L4 neural foramina with compression of the L4 nerveroots. There are hypertrophic changes in the facet joints, prominence ofthe ligamentum flavum contributing to severe spinal stenosis. There isclumping of the nerve roots within the spinal canal at this level. At L5-S1 level there is mild anterior displacement of L5 over S1. Disc isdecreased in height and T2 signal. There is a tear of the annulus fibrosisand diffuse bulging of the disc. There is also small central herniation ofthe disc there are marked degenerative changes in the facet joints withpossible fusion of the facet joints. There is narrowing of the lateralrecesses and L5 neural foramina more prominent on the left. There iseffacement of the L5 nerve roots, left more than right. 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 Note was made of atrophic changes in the paraspinal muscles. There are multiple T2 bright lesions within the kidneys bilaterally aswell as large central lesion in the right kidney, consistent with cysts. CONCLUSIONS: Multilevel bony and discs degenerative changes as detailed.Severe spinal stenosis at L4-5 level. Stenosis of the lateral recesses andneural foramina at multiple levels as detailed. Additional findings in the report. No significant interval change since previous examination. -------- FINAL REPORT -------- Dictated By: Sara Espinoza Dictated Date: 04/16/2025 17:35 ET Assigned Physician: Sara Espinoza Reviewed and Electronically Signed By: Sara Espinoza Signed Date: 04/18/2025 16:45 ET Workstation ID: [id number] Transcribed By: Self Edit Transcribed Date: 04/16/2025 19:54 ET Kiya Balbuena [employer] MRI PROCEDURES Final Result documented in this encounter Visit Diagnoses Diagnosis Coccygeal pain Other disorder of coccyx Spinal stenosis of lumbar region without neurogenic claudication documented in this encounter Additional Health Concerns Assessment Noted Time PHQ-9 Depression Total Score: 0 04/06/20 25 10:33 AM EDT documented as of this encounter Care Teams [employer] History Teacher Relationship Specialty Start Date End Date Feroz Reyes MD [address] [place] [id number] PCP - General Internal Medicine 09/29/20 documented as of this encounter
--- OUTSIDE RECORDS SUMMARY | 2025-04-20 08:02 | XMS_ITS | Clinical Summary ---
Author Organization [facility], Address [address] [place] [address] [place] [address] Phone Care Team Providers Care Childcare Attendant Name Role Phone Genaro Herrera Primary Care Provider [phone] Allergies Active Allergy Reactions Criticality Noted Date [...] by mouth 10/31/2020 Active ergocalciferol 1.25 MG (53229 UT) capsule TAKE 1 CAPSULE BY MOUTH [...] Due Date Last Done Comments Pneumococcal Vaccine: 50+ Ye ars (1 of 2 - PCV) 1959 Influenza Vaccine (#1) 2025 Hepatitis B Vaccine Aged Out No longe r eligible based on patient's age to complete this topic Insurance Yadira Care Teams Childcare Attendant Relationship Specialty Start Date End Date Genaro Herrera [address] [place] [id number] PCP - General Internal Medicine 02/16/21
--- OUTSIDE RECORDS SUMMARY | 2025-04-20 08:02 | XMS_ITS | Clinical Summary ---
Author Organization [facility] Address [address] [place] [address] Phone Care Team Providers Care Nurse First Aid Name Role Phone Feroz Reyes MD Primary Care Provider [phone] Allergies Active Allergy Reactions Criticality Noted Date Comments Latex Itching,Hives 10/31/2020 Anjali Oil Itching 10/31/2020 Medications acetaminophen (TYLENOL 8 HOUR) 650 mg 8 hr tablet Take 1 Tablet by mouth every 8 hours as needed for Pain. 01/16/20 24 Active brimonidine (ALPHAGAN P) 0.15 % ophthalmic solution 2 times daily. 02/07/20 24 Active calcium carbonate EX (Antacid Extra-Strength) 300 mg (750 mg) chewable tablet Take 1 Tablet by mouth daily. Active calcium carbonate (CALCIUM 500 ORAL) CALCIUM 500-2.5 MG-MCG CHEW TAB: Take by mouth daily. Active CHOLECALCIFEROL, VITAMIN D3, ORAL Take 1,000 mg by mouth. Active cholestyramine (QUESTRAN) 4 gram powder 08/04/20 21 Active cyanocobalamin (VIT B-12) 1,000 mcg tablet extended release ER tablet Take by mouth daily. Active diclofenac (VOLTAREN) 1 % topical gel Apply topically 2 times daily. Active metoprolol succinate (TOPROL-XL) 25 mg 24 hr tablet 1 Tablet daily. 01/02/20 24 Active nitroglycerin (NITROSTAT) 0.[address] 1 Tablet under the tongue every 5 minutes as needed for Chest pain. 09/21/19 23 Active netarsudiL (Rhopressa) 0.02 % drops 05/08/20 24 Active lidocaine (LIDODERM) 5 % patch Apply 1 patch topically 1 (one) time each day. 08/29/19 25 Active gabapentin (NEURONTIN) 300 mg capsule TAKE 1 CAPSULE BY MOUTH TWICE DAILY (in addition to 100 MG capsule at night) 180 capsule 1 12/03/19 25 Active loperamide (IMODIUM) 2 mg capsule Take 1 capsule (2 mg total) by mouth if needed. 09/01/19 25 Active rosuvastatin (CRESTOR) 40 mg tablet Take 1 tablet (40 mg total) by mouth 1 (one) time each day. 90 tablet 1 12/05/19 25 Active gabapentin (NEURONTIN) 100 mg capsule TAKE 1 CAPSULE BY MOUTH EVERY NIGHT IN ADDITION TO 300 MG CAPSULE 90 capsule 1 12/15/19 25 Active prednisoLONE acetate (PRED FORTE) 1 % ophthalmic suspension Administer 1 drop into both eyes 2 (two) times a day. 02/05/20 25 Active loratadine (CLARITIN) 10 mg tablet TAKE 1 TABLET BY MOUTH ONE TIME EACH DAY 90 tablet 1 03/15/20 25 Active amLODIPine (NORVASC) 5 mg tablet TAKE 1 TABLET BY MOUTH DAILY 90 tablet 1 03/15/20 25 Active potassium chloride (KLOR-CON) 10 mEq CR tablet TAKE 1 TABLET BY MOUTH TWICE DAILY 180 tablet 1 04/05/20 25 Active amoxicillin-clavu lanate (AUGMENTIN) 875-125 mg per tablet Take 1 tablet by mouth 2 (two) times a day. 04/05/20 25 Active ondansetron ODT (ZOFRAN-ODT) 4 mg disintegrating tablet 04/05/20 25 Active potassium chloride (KLOR-CON) 10 mEq CR tablet TAKE 1 TABLET BY MOUTH TWICE DAILY 180 tablet 1 09/30/19 25 2024 Discontinued Active Problems Problem Noted Date Diagnosed Date Chronic midline low back pain without sciatica 0 01/25/2025 Diverticulitis 01/25/2025 Assessment & Plan (04/12/2025 12:56 PM EDT): She was prescribed Augmentin by [facility] and she will complete a course. Symptoms have improved. I have placed a referral to gastroenterology (Dr. Blunt at [facility]) for her. She will also keep her appointment with the surgeon, Dr. Galleogs. Orders: Ambulatory referral to Gastroenterology; Future Assessment & Plan (03/10/2025 12:38 PM EDT): 2-3 episodes within the last 4 months. Patient a little unsure of timeline/history, and changed her answers a few times based on my questioning. I did see a CT scan from January 01, however she states she repeated her CAT scan again at onset of second flare, no records to review. Reviewed diverticulitis in depth with the patient along with signs and symptoms that would warrant ED return. Discussed preventative measures to include avoiding constipation and high-fiber diet when asymptomatic. She does use both cholestyramine PRN and imodium daily -I question the necessity of both of these agents suspicious if she is overusing these agents. Will send for KUB today to assess for constipation. Consider decreasing Imodium use to as needed. Offered patient colonoscopy for further evaluation of recurrent diverticulitis. Patient would like to check in with Dr. Blunt' office first to see their availability as she would prefer to stay with her established GI provider. Can call back and schedule via phone if he is unavailable. ?Consider surgical consultation for recurrent diverticulitis. Further discussion pending workup. Orders: Ambulatory referral to Gastroenterology XR Abdomen 1 View; Future Glaucoma 12/04/2024 COVID 07/03/2023 Overview (06/15/2024): Covid 07/03/23 PVD (peripheral vascular disease) ([facility] V24) 02/28/2023 Stage 3 chronic kidney disease ([facility] V24, [facility] V28) 03/31/2021 Hypercholesterolemia 12/26/2020 Nephrolithiasis 12/26/2020 Anemia 12/26/2020 Bilateral renal cysts 12/15/2020 Adrenal adenoma, right 12/07/2020 Gastroesophageal reflux disease 10/31/2020 Essential hypertension 10/31/2020 Cervical radiculopathy 10/31/2020 Encounters Date Type Department Care Team Description 04/19/2025 Telephone [facility] [address] [facility] [place] [facility] [phone] Elena Bain MA 04/16/2025 9:15 AM EDT - 04/16/2025 11:59 PM EDT Hospital Encounter Radiology Department - [address] [phone] Coccygeal pain; Spinal stenosis of lumbar region without neurogenic claudication Discharge Disposition: Home or Self Care 04/12/2025 11:00 AM EDT Office Visit Internal Medicine - [facility] [address] [place], [place] [phone] eGnaro Shaikh MD Diverticulitis (Primary Dx); Kidney cysts; Adenoma of right adrenal gland; Pressure injury of sacral region, stage 1 04/09/2025 Telephone Internal Medicine - [facility] [address] [place], [place] [phone] Feroz Reyes MD 04/07/2025 Telephone Gastroenterology - [address] [phone] Haleigh Martines PA 04/06/2025 10:00 AM EDT Telemedicine Internal Medicine - [facility] [address] [place], [place] [phone] Routine general medical examination at a health care facility (Primary Dx); Encounter for subsequent annual wellness visit (AWV) in Medicare patient 03/31/2025 9:30 AM EDT Office Visit Vascular Surgery - [place] [address] [place] [address] Karol Schafer MD Asymptomatic stenosis of left carotid artery (Primary Dx); Asymptomatic bilateral carotid artery stenosis 03/26/2025 Telephone Internal Medicine - [facility] [address] [place], [place] [phone] Feroz Reyes MD 03/24/2025 Telephone Internal Medicine - [facility] [address] [place], [place] [phone] Ferzo Reyes MD 03/18/2025 Telephone Gastroenterology - [address] [facility] [address] [place] [address] Haleigh Martines PA 03/17/2025 8:37 AM EDT - 03/17/2025 11:59 PM EDT Hospital Encounter Ultrasound - [facility] [address] [place] [address] Anorexia; Abnormal weight loss Discharge Disposition: Home or Self Care 03/16/2025 8:43 AM EDT - 03/16/2025 11:59 PM EDT Hospital Encounter [facility] Ultrasound [address] [place] [address] Carotid stenosis Discharge Disposition: Home or Self Care 03/10/2025 10:18 AM EDT - 03/10/2025 11:59 PM EDT Hospital Encounter [facility] Xray [address] [place] [address] Diverticulitis Discharge Disposition: Home or Self Care 03/10/2025 9:40 AM EDT Consult Gastroenterology - [address] [place] [phone] Haleigh Martines PA Diverticulitis 03/10/2025 Telephone Gastroenterology - [address] [facility] [address] [place] [phone] Riya Tony MA 03/01/2025 3:45 PM EDT - 03/01/2025 11:59 PM EDT Hospital Encounter Xray - [facility] [address] [place] [address] Abnormal weight loss Discharge Disposition: Home or Self Care 03/01/2025 3:45 PM EDT - 03/01/2025 11:59 PM EDT Hospital Encounter Xray - [facility] [address] [place] [address] Right hip pain Discharge Disposition: Home or Self Care 03/01/2025 3:44 PM EDT - 03/01/2025 11:59 PM EDT Hospital Encounter Xray - [facility] [address] [place] [address] Coccygeal pain; Chronic right-sided low back pain without sciatica Discharge Disposition: Home or Self Care 03/01/2025 3:30 PM EDT Office Visit Internal Medicine - [address] [place] [address] Kiya Balbuena, ZULEMA Coccygeal pain (Primary Dx); Chronic right-sided low back pain without sciatica; Right hip pain; Anorexia; Abnormal weight loss; Diverticulitis 02/25/2025 Telephone Internal Medicine - [address] [place] [address] Feroz Reyes MD 01/25/2025 1:30 PM EDT Office Visit Internal Medicine - [address] [place] [address] Feorz Reyes MD Diverticulitis (Primary Dx); Chronic midline low back pain without sciatica from Last 3 Months Immunizations Name Administration [...] CATHETERIZATION PROCEDURE: HISTORICAL CARDIAC CATH CHOLECYSTECTOMY PROCEDURE: KS LAPAROSCOPY SURG CHOLECYSTECTOMY COLONOSCOPY PROCEDURE: HISTORICAL COLONOSCOPY BREAST BIOPSY Right PROCEDURE: BX BREAST; PERC NEEDLE CORE W/IMAG GUID; COMMENT: fna-many yrs ago CATARACT EXTRACTION, BILATERAL Bilateral Medical History Medical History Date Comments Anemia [...] DX:Hypercho lesterolemia Bartholin's cyst 11/2021 DX:Bartholin's cyst Bronchitis Arthritis R hip Family History Medical History Relation Name Comments No Known Problems Brother Hypertension Daughter Thyroid disease Daughter Cancer Father unknown type Dementia Mother Hypertension Sister 1 Layla Hypertension Sister 2 [place] Other: Other Sister 2 [place]ina unsure of all m edical problems Hypertension Sister 3 Selam Arthritis Sister 4 Katherine Multiple sclerosis Sister 4 Katherine Hypertension Sister 5 Glenys Hypertension Son 1 Lul Other: Other Son 1 Lul Kidney issues Thyroid disease Son 1 Lul Hypertension Son 2 angelica Arthritis Son 3 Quentin arthritis in ba ck Hypertension Son 3 Quentin Other: Other Son 4 Feroz Hepatitis No Known Problems Son 5 Vicente Relation Name Status Comments Brother Alive Daughter Alive Father Mother Sister 1 Layla Alive Sister 2 clemintina Alive Sister 3 Selam Alive Sister 4 Katherine Alive Sister 5 Glenys Alive Son 1 Lul Alive Son 2 [...] ed Within the last 3 months, juliane w many times did you visit the emergency [...] for your loved ones. For example, child psychiatrist or elderly care for an older adult? [...] Sign Reading Time Taken Comments Blood Pressure 128/68 04/12/2025 10:40 AM EDT Pulse 52 04/12/2025 10:40 AM EDT Temperature - - Respiratory Rate - - Oxygen Saturation - - Inhaled Oxygen Concentration - - Weight 50.7 kg (111 lb 12.8 oz) 025 10:40 AM EDT Height 144.8 cm (4' 9 ) 04/12/2025 10:4 0 AM EDT Body Mass Index 24.19 04/12/2025 10:40 AM EDT Plan of Treatment Upcoming Encounters Date Type Department Care Team (Late st Contact Info) Description 05/11/2025 2:30 PM EDT Office Visit Internal Medicine - [address] [phone] Darius Montoya NP [address] [place] [address] 07/27/2025 9:30 AM EST Office Visit Internal Medicine - [address] [phone] Feroz Reyes MD [address] [place] [address] 03/31/2026 10:30 AM EDT Appointment [facility] Ultrasound [address] [place] [phone] 04/06/2026 10:30 AM EDT Office Visit Vascular Surgery - [place] [address] [phone] Karol Schafer MD [address] [address] Health Maintenance Due Date Last Done Comments RSV Immunization Adult Patients (1 - 1-dose 75+ series) 2016 COVID-19 Vaccine (5 - Pfizer risk 2023- season) 2024 06/17/2024, 08/09/2021, 11/01/2020, Additional history exists Influenza Vaccine (#1) 2025 , 05/21/2023, 06/22/2022, Additional history exists Hypertension/CHF/CAD Annual BMP Blood Test 03/17/2026 03/17/2025, 12/04/2024, 02/10/2024, Additional history exists Falls Risk Assessment 04/06/2026 04/06/2025 Medicare Annual Wellness Visit 04/06/2026 04/06/2025 Social Influencers of Health Screening 04/06/2026 04/06/2025 Cholesterol Screening (Lipid Panel) 12/04/2029 12/04/2024, 02/10/2024, 02/10/2024 Osteoporosis Screening (Bone Density Screening) 08/03/2032 08/03/2022 DTaP,Tdap,and Td Vaccines (3 - Td or Tdap) 05/21/2033 05/21/2023, 11/16/2022 Zoster Vaccines Completed 05/15/2022, 03/20/2022 Pneumococcal Vaccine: 50+ Years Completed 11/16/2022, 07/30/2019 Depression Screening Completed 04/06/2025 HIB Vaccines Aged Out No longer eligi [...] stenosis of lumbar region without neurogenic claudication US ABDOMEN COMPLETE Routine 03/17/2025 1 0:21 AM EDT Anorexia Abnormal weight loss CBC WITH AUTO DIFFERENTIAL Routine 03/17/2025 9:22 AM EDT Anorexia Abnormal weight loss CBC AND DIFFERENTIAL Routine 03/17/2025 9:22 AM EDT Anorexia Abnormal weight loss COMPREHENSIVE METABOLIC PANEL Routine 03/17/2025 9:22 AM EDT Anorexia Abnormal weight loss LIPASE Routine 03/17/2025 9:22 AM EDT Anorexia Abnormal weight loss THYROID STIMULATING HORMONE WITH REFLEX TO FREE T4 AND FREE T3 Routine 03/17/2025 9:22 AM EDT Anorexia Abnormal weight loss VAS US DUPLEX CAROTID BILATERAL Routine 03/16/2025 9:23 AM EDT Carotid stenosis XR ABDOMEN 1 VIEW Routine 03/10/2025 10: 30 AM EDT Diverticulitis XR CHEST 2 VIEWS Routine 03/01/2025 4:01 PM EDT Abnormal weight loss XR LUMBAR SPINE 4+ VIEWS Routine 03/01/2025 4:00 PM EDT Coccygeal pain Chronic right-sided low back pain without sciatica XR HIP 4+ VIEWS RIGHT Routine 03/01/2025 4:00 PM EDT Right hip pain LIPID PANEL WITH REFLEX TO DIRECT LDL Routine 12/04/2024 10:35 AM EDT PVD (peripheral vascular disease) ([facility] V24) Hypercholesterolemia DXA BONE DENSITY STUDY 1+ SITS AXIAL SKEL Routine 08/03/2022 9:21 AM EST Encounter for screening for osteoporosis from Last 3 Months or Most Recently Relevant to Health Maintenance Results * MR Lumbar Spine wo Contrast [...] Signed Date: 04/18/2025 16:45 ET Workstation ID: [id number] Transcribed By: Self Edit Transcribed Date: 04/16/2025 [...] nerve root and compression of the left [id number] root. At L4-5 level disc is desiccated. [...] Signed Date: 04/18/2025 16:45 ET Workstation ID: [id number] Transcribed By: Self Edit Transcribed Date: 04/16/2025 19:54 ET us Kiya Balbuena NP IMG MRI PROCEDURES Final Result * US Abdomen Complete (03/17/2025 10:21 AM EDT) Anatomical Region Laterality Modality Body Ultrasound 03/17/2025 1:33 PM EDT Impressions 03/17/2025 1:38 PM EDT 1. Heterogeneous echotexture of the liver. 2. Bilateral renal cysts -------- FINAL REPORT -------- Dictated By: Kathy Villafana Dictated Date: 03/17/2025 13:33 ET Assigned Physician: Kathy Villafana Reviewed and Electronically Signed By: Kathy Villafana Signed Date: 03/17/2025 13:38 ET Workstation ID: [id number] Transcribed By: Self Edit Transcribed Date: 03/17/2025 13:33 ET Narrative 03/17/2025 1:38 PM EDT Exam: Complete abdominal ultrasound History: weight loss Technique: Covington scale and color Doppler imaging was utilized. Comparison: Ultrasound renal from 11/08/2022 FINDINGS: Liver: heterogenousin echotexture. The liver measures 11.7 cm.There is no evidence of intrahepatic biliary ductal dilation. There is no ascites. Gallbladder: status post cholecystectomy Common bile duct: measures 0.7 cm. Right kidney: measures 9.4 cm in length and is normal in echotexture. Within the mid pole is a 2.2 x 2.1 x 2.5 cm anechoic thin-walled cyst. Left kidney: 9.2 cm in length and is normal in echotexture. Within the mid pole is an anechoic thin-walled cyst measuring 1.5 x 1.1 x 1.4 cm and an upper pole 1.6 x 1.4 x 1.3 cm anechoic thin-walled cyst. There is no hydronephrosis. Spleen: No splenomegaly. The spleen measures 7.1 cm and demonstrates normal echotexture. Pancreas: The visualized pancreatic parenchyma is unremarkable. The pancreatic head and tail were not visualized due to overlying bowel gas. Abdominal aorta: normal in caliber on a survey view. IVC was visualized. Procedure Note Kathy Villafana MD - 03/17/2025 Exam: Complete abdominal ultrasound History: weight loss Technique: Covington scale and color Doppler imaging was utilized. Comparison: Ultrasound renal from 11/08/2022 FINDINGS: Liver: heterogenousin echotexture. The liver measures 11.7 cm.There is noevidence of intrahepatic biliary ductal dilation. There is no ascites. Gallbladder: status post cholecystectomy Common bile duct: measures 0.7 cm. Right kidney: measures 9.4 cm in length and is normal in echotexture.Within the mid pole is a 2.2 x 2.1 x 2.5 cm anechoic thin-walled cyst. Left kidney: 9.2 cm in length and is normal in echotexture. Within themid pole is an anechoic thin-walled cyst measuring 1.5 x 1.1 x 1.4 cm andan upper pole 1.6 x 1.4 x 1.3 cm anechoic thin-walled cyst. There is no hydronephrosis. Spleen: No splenomegaly. The spleen measures 7.1 cm and demonstratesnormal echotexture. Pancreas: The visualized pancreatic parenchyma is unremarkable. Thepancreatic head and tail were not visualized due to overlying bowel gas. Abdominal aorta: normal in caliber on a survey view. IVC wasvisualized. IMPRESSION: 1. Heterogeneous echotexture of the liver. 2. Bilateral renal cysts -------- FINAL REPORT -------- Dictated By: Kathy Villafana Dictated Date: 03/17/2025 13:33 ET Assigned Physician: Kathy Villafana Reviewed and Electronically Signed By: Kathy Villafana Signed Date: 03/17/2025 13:38 ET Workstation ID: [id number] Transcribed By: Self Edit Transcribed Date: 03/17/2025 13:33 ET us Kiya Balbuena NP IMG US PROCEDURES Final Result * Thyroid stimulating hormone with reflex to free t4 and free t3 (03/17/2025 9:22 AM EDT) TSH 2.87 0.40 - 4.00 mcIU/mL LAB CHEMISTRY METHOD 03/17/2025 4:39 PM EDT [facility] Blood Venous blood specimen / Unknown Venipuncture / Unknown 03/17/2025 9:22 AM EDT 03/17/2025 9:22 AM EDT us Kiya Balbuena NP LAB BLOOD ORDERABLES Final Resu lt [facility] [address] [place] [address], [place] [phone] * (ABNORMAL) CBC auto differential (03/17/2025 9:22 AM EDT) [facility] WBC 7.3 4.8 - 10.8 K/mcL LAB HEMETOLOGY METHOD 03/17/2025 12:45 PM EDT [facility] RBC 3.90 3.80 - 4.80 M/mcL LAB HEMETOLOGY METHOD 03/17/2025 12:45 PM EDT [facility] Hemoglobin 11.5 11.5 - 16.0 g/dL LAB HEMETOLOGY [facility] Hematocrit 36.8 35.0 - 47.0 % LAB HEMETOLOGY METHOD 03/17/2025 12:[facility] MCV 93.4 79.0 - 98.0 FL LAB HEMETOLOGY METHOD 03/17/2025 12:[facility] MCH 29.2 27.0 - 32.0 pcg LAB HEMETOLOGY METHOD 03/17/2025 12:45 [facility] MCHC 31.3(L) 32.0 - 37.0 g/dL LAB HEMETOLOGY METHOD 03/17/2025 12:45 PM [facility] RDW 14.1 11.0 - 15.0 % LAB HEMETOLOGY METHOD 03/17/2025 12:45 PM EDT [facility] Platelets 204 130 - 400 K/mcL LAB HEMETOLOGY METHOD 03/17/2025 12:45 [facility] MPV 10.8 7.0 - 11.0 FL LAB HEMETOLOGY METHOD 03/17/2025 12:45 [facility] NRBC 0.0 <1.0 % LAB HEMETOLOGY METHOD 03/17/2025 12:45 PM EDT [facility] NRBC Absolute 0.00 <0.10 K/mcL LAB HEMETOLOGY METHOD 03/17/2025 12:[facility] Neutrophils Relative 54.6 % LAB HEMETOLOGY METHOD 03/17/2025 12:45 PM [facility] Lymphocytes Relative 35.6 % LAB HEMETOLOGY METHOD 03/17/2025 12:45 PM [facility] Monocytes Relative 7.9 % LAB HEMETOLOGY METHOD 03/17/2025 12:45 PM [facility] Eosinophils Relative 1.0 % LAB HEMETOLOGY METHOD 03/17/2025 12:45 PM [facility] Basophils Relative 0.5 % LAB HEMETOLOGY METHOD 03/17/2025 12:45 PM [facility] Immature Granulocytes Relative 0.4 % LAB HEMETOLOGY METHOD 03/17/2025 12:45 PM [facility] Neutrophils Absolute 3.98 1.50 - 7.00 K/mcL LAB HEMETOLOGY METHOD 03/17/2025 12:45 PM [facility] Lymphocytes Absolute 2.60 1.00 - 5.00 K/mcL LAB HEMETOLOGY METHOD 03/17/2025 12:45 PM [facility] Monocytes Absolute 0.58 0.20 - 1.00 K/mcL LAB HEMETOLOGY METHOD 03/17/2025 12:45 PM [facility] Eosinophils Absolute 0.07 0.00 - 0.50 K/mcL LAB HEMETOLOGY METHOD 03/17/2025 12:45 PM [facility] Basophils Absolute 0.04 0.00 - 0.20 K/mcL LAB HEMETOLOGY METHOD 03/17/2025 12:45 PM [facility] Immature Granulocytes Absolute 0.03 0.00 - 0.03 K/mcL LAB HEMETOLOGY METHOD 03/17/2025 12:45 PM EDT [facility] Blood Venous blood specimen / Unknown Venipuncture / Unknown 03/17/2025 9:22 AM EDT 03/17/2025 9:22 AM EDT Kiya Cardozati CRAFT ARTIST LAB BLOOD ORDERABLES Final Resu lt Performing Organization Address City/[facility]/ZIP Co de Phone Number [facility] [address] [place] [address], [place] [phone] * Lipase (03/17/2025 9:22 AM EDT) Lipase 31 13 - 75 unit/L LAB CHEMISTRY METHOD 03/17/2025 4:08 PM EDT [facility] Blood Venous blood specimen / Unknown Venipuncture / Unknown 03/17/2025 9:22 AM EDT 03/17/2025 9:22 AM EDT Kiya Balbuena CRAFT ARTIST LAB BLOOD ORDERABLES Final Resu lt Performing Organization Address City/[facility]/ZIP Co de Phone Number [facility] [address] [place] [address], [place] [phone] * Comprehensive metabolic panel (03/17/2025 9:22 AM EDT) Sodium 141 133 - 145 mmol/L LAB CHEMISTRY METHOD 03/17/2025 4:08 PM T [facility] Potassium 4.3 3.5 - 5.5 mmol/L LAB CHEMISTRY METHOD 03/17/2025 4:08 PM [facility] Chloride 110 96 - 110 mmol/L LAB CHEMISTRY METHOD 03/17/2025 4:08 PM EDT [facility] CO2 28 21 - 32 mmol/L LAB CHEMISTRY METHOD 03/17/2025 4:08 PM T [facility] Anion Gap 3 3 - 11 LAB CHEMISTRY METHOD 03/17/2025 4:08 PM [facility] Glucose 83 70 - 100 mg/dL LAB CHEMISTRY METHOD 03/17/2025 4:08 PM [facility] BUN 11 5 - 25 mg/dL LAB CHEMISTRY METHOD 03/17/2025 4:08 PM [facility] Creatinine 0.86 0.50 - 1.10 mg/dL LAB CHEMISTRY METHOD 03/17/2025 4:08 PM [facility] eGFR 67 >=60 mL/min/1. 73m2 LAB CHEMISTRY METHOD 03/17/2025 4:08 PM [facility] Comment:Calculation based on the Chronic Kidney Disease Epidemiology Collaboration (CKD-EPI) equation refit without adjustment for race. BUN/Creatinine Ratio 12.8 LAB CHEMISTRY METHOD 03/17/2025 4:08 PM [facility] Calcium 9.8 8.5 - 10.5 mg/dL LAB CHEMISTRY METHOD 03/17/2025 4:08 PM [facility] AST (SGOT) 20 10 - 42 unit/L LAB CHEMISTRY METHOD 03/17/2025 4:08 PM [facility] ALT (SGPT) 23 10 - 60 unit/L LAB CHEMISTRY METHOD 03/17/2025 4:08 PM [facility] Alkaline Phosphatase 69 42 - 121 unit/L LAB CHEMISTRY METHOD 03/17/2025 4:08 PM [facility] Total Protein 6.4 6.0 - 8.0 g/dL LAB CHEMISTRY METHOD 03/17/2025 4:08 PM [facility] Albumin 3.6 3.2 - 5.0 g/dL LAB CHEMISTRY METHOD 03/17/2025 4:08 PM [facility] Total Bilirubin 0.3 0.0 - 1.4 mg/dL LAB CHEMISTRY METHOD 03/17/2025 4:08 PM [facility] Blood Venous blood specimen / Unknown Venipuncture / Unknown 03/17/2025 9:22 AM EDT 03/17/2025 9:22 AM EDT us Kiya Balbuena NP LAB BLOOD ORDERABLES Final Resu lt [facility] [address] [place] [address], [place] [phone] * Vascular US duplex carotid bilateral (03/16/2025 9:23 AM EDT) Anatomical Region Laterality Modality Vascular, Abdomen Ultrasound 03/16/2025 9:59 AM EDT Impressions 03/16/2025 10:05 AM EDT 1. Elevated ICA/CCA ratio of 2.2 on the left, which is suggestive of a 50-69% stenosis. However, there is no significant stenosis at this site by peak systolic velocity criteria. 2. Mild origin stenosis of the left external carotid artery. -------- FINAL REPORT -------- Dictated By: Luciano Garcia Dictated Date: 03/16/2025 09:59 ET Assigned Physician: Luciano Garcia Reviewed and Electronically Signed By: Luciano Garcia Signed Date: 03/16/2025 10:05 ET Workstation ID: [id number] Transcribed By: Self Edit Transcribed Date: 03/16/2025 09:59 ET Narrative 03/16/2025 10:05 AM EDT PROCEDURE: Carotid ultrasound. HISTORY: CAROTID STENOSIS. TECHNIQUE: Grayscale, color Doppler, and spectral Doppler ultrasound evaluation of the carotid and vertebral arteries in the neck. COMPARISON: FINDINGS: Grayscale ultrasound evaluation of the carotid arteries demonstrates scattered atherosclerotic plaque, most prominent at the bulbs. An elevated peak systolic velocity in the proximal left external carotid artery of 137 cm/s suggests a mild stenosis. There is no focally elevated peak systolic velocity in either internal carotid artery. ICA/CCA ratio is 1.0 on the right and 2.2 on the left. Antegrade flow with normal spectral Doppler tracings in both vertebral arteries. Procedure Note Luciano Garcia MD - 03/16/2025 PROCEDURE: Carotid ultrasound. HISTORY: CAROTID STENOSIS. TECHNIQUE: Grayscale, color Doppler, and spectral Doppler ultrasoundevaluation of the carotid and vertebral arteries in the neck. COMPARISON: FINDINGS: Grayscale ultrasound evaluation of the carotid arteries demonstratesscattered atherosclerotic plaque, most prominent at the bulbs. Anelevated peak systolic velocity in the proximal left external carotidartery of 137 cm/s suggests a mild stenosis. There is no focally elevatedpeak systolic velocity in either internal carotid artery. ICA/CCA ratio is 1.0 on the right and 2.2 on the left. Antegrade flow with normal spectral Doppler tracings in both vertebralarteries. IMPRESSION: 1. Elevated ICA/CCA ratio of 2.2 on the left, which is suggestive of a50-69% stenosis. However, there is no significant stenosis at this siteby peak systolic velocity criteria. 2. Mild origin stenosis of the left external carotid artery. -------- FINAL REPORT -------- Dictated By: Luciano Garcia Dictated Date: 03/16/2025 09:59 ET Assigned Physician: Luciano Garcia Reviewed and Electronically Signed By: Luciano Garcia Signed Date: 03/16/2025 10:05 ET Workstation ID: [id number] Transcribed By: Self Edit Transcribed Date: 03/16/2025 09:59 ET us Karol Schafer MD CV VASCULAR PROCEDURES Fi nal Result * XR Abdomen 1 View (03/10/2025 10:30 AM EDT) Anatomical Region Laterality Modality Body Radiographic Cinthya ging 03/10/2025 10:3 5 AM EDT Impressions 03/10/2025 10:37 AM EDT Nonobstructive bowel gas pattern. There is evidence of moderate constipation. The patient is seen to have undergone previous cholecystectomy, as well as pelvic surgery. Code 95058 -------- FINAL REPORT -------- Dictated By: Mason Patricia Dictated Date: 03/10/2025 10:35 ET Assigned Physician: Mason Patricia Reviewed and Electronically Signed By: Mason Patricia Signed Date: 03/10/2025 10:37 ET Workstation ID: [id number] Transcribed By: Self Edit Transcribed Date: 03/10/2025 10:35 ET Narrative 03/10/2025 10:37 AM EDT HISTORY: The patient is an 84-year-old female with diverticulitis and lower abdominal pain. FINDINGS: Supine radiographs of the abdomen demonstrate surgical clips in the right upper quadrant likely consequent to previous cholecystectomy. Surgical clips and sutures are present in the pelvis. There are degenerative changes of the lumbar spine. The bowel gas pattern is nonobstructive. A moderate amount of fecal material is present in the colon from the cecum to the rectum consistent with moderate constipation. No mass or radiopaque calculus is seen. Procedure Note Mason Patricia MD - 03/10/2025 HISTORY: The patient is an 84-year-old female with diverticulitis andlower abdominal pain. FINDINGS: Supine radiographs of the abdomen demonstrate surgical clips inthe right upper quadrant likely consequent to previous cholecystectomy.Surgical clips and sutures are present in the pelvis. There aredegenerative changes of the lumbar spine. The bowel gas pattern isnonobstructive. A moderate amount of fecal material is present in thecolon from the cecum to the rectum consistent with moderate constipation.No mass or radiopaque calculus is seen. IMPRESSION: Nonobstructive bowel gas pattern. There is evidence of moderateconstipation. The patient is seen to have undergone previouscholecystectomy, as well as pelvic surgery. Code 16753 -------- FINAL REPORT -------- Dictated By: Mason Patricia Dictated Date: 03/10/2025 10:35 ET Assigned Physician: Mason Patricia Reviewed and Electronically Signed By: Mason Patricia Signed Date: 03/10/2025 10:37 ET Workstation ID: [id number] Transcribed By: Self Edit Transcribed Date: 03/10/2025 10:35 ET Haleigh OVIEDO IMG XR PROCEDURES Final Result * XR Chest 2 Views (03/01/2025 4:01 PM EDT) Anatomical Region Laterality Modality Body Radiographic Cinthya ging 03/01/2025 7:22 PM EDT Impressions 03/01/2025 7:29 PM EDT No evidence of an acute chest process. POS - [id number] -------- FINAL REPORT -------- Dictated By: Claire Melendez Dictated Date: 03/01/2025 19:22 ET Assigned Physician: Claire Melendez Reviewed and Electronically Signed By: Claire Melendez Signed Date: 03/01/2025 19:29 ET Workstation ID: [id number] Transcribed By: Self Edit Transcribed Date: 03/01/2025 19:22 ET Narrative 03/01/2025 7:29 PM EDT EXAM: Chest x-ray HISTORY: Abnormal weight loss. COMPARISON: 10/31/2020, chest CT 11/14/2020 FINDINGS: PA and lateral views of the chest were performed. Lungs are clear. No pleural effusions or evidence of pulmonary edema. Heart is not enlarged. Stable rounded opacity in the right paratracheal region which corresponds with tortuous vasculature on CT. Mild degenerative changes in the spine. Procedure Note Claire Melendez MD - 03/01/2025 EXAM: Chest x-ray HISTORY: Abnormal weight loss. COMPARISON: 10/31/2020, chest CT 11/14/2020 FINDINGS: PA and lateral views of the chest were performed. Lungs are clear. No pleural effusions or evidence of pulmonary edema.Heart is not enlarged. Stable rounded opacity in the right paratrachealregion which corresponds with tortuous vasculature on CT. Milddegenerative changes in the spine. IMPRESSION: No evidence of an acute chest process. POS - [id number] -------- FINAL REPORT -------- Dictated By: Claire Melendez Dictated Date: 03/01/2025 19:22 ET Assigned Physician: Claire Melendez Reviewed and Electronically Signed By: Claire Melendez Signed Date: 03/01/2025 19:29 ET Workstation ID: [id number] Transcribed By: Self Edit Transcribed Date: 03/01/2025 19:22 ET Kiya Sree CRAFT ARTIST IMG XR PROCEDURES Final Result * XR Lumbar Spine 4+ Views (03/01/2025 4:00 PM EDT) Anatomical Region Laterality Modality Spine, L-spine Radiographic Cinthya ging 03/01/2025 8:27 PM EDT Impressions 03/01/2025 8:34 PM EDT Degenerative changes with progressive facet arthropathy in the lower spine. POS - [id number] -------- FINAL REPORT -------- Dictated By: Claire Melendez Dictated Date: 03/01/2025 20:27 ET Assigned Physician: Claire Melendez Reviewed and Electronically Signed By: Claire Melendez Signed Date: 03/01/2025 20:34 ET Workstation ID: [id number] Transcribed By: Self Edit Transcribed Date: 03/01/2025 20:27 ET Narrative 03/01/2025 8:34 PM EDT EXAM: Lumbar spine x-ray HISTORY: Right-sided low back pain without sciatica. COMPARISON: 05/21/2024 FINDINGS: 5 views of the lumbar spine were performed. 5 lumbar type vertebral bodies. Bones are osteopenic. Vertebral body heights are maintained. Mild to moderate disc space narrowing again noted at L5-S1. No evidence of spondylolysis or spondylolisthesis. Multilevel facet arthropathy which is most pronounced and progressive in the lower spine. Surgical clips in the right upper quadrant. Procedure Note Claire Melendez MD - 03/01/2025 EXAM: Lumbar spine x-ray HISTORY: Right-sided low back pain without sciatica. COMPARISON: 05/21/2024 FINDINGS: 5 views of the lumbar spine were performed. 5 lumbar type vertebral bodies. Bones are osteopenic. Vertebral bodyheights are maintained. Mild to moderate disc space narrowing again notedat L5-S1. No evidence of spondylolysis or spondylolisthesis. Multilevelfacet arthropathy which is most pronounced and progressive in the lowerspine. Surgical clips in the right upper quadrant. IMPRESSION: Degenerative changes with progressive facet arthropathy in the lowerspine. POS - [id number] -------- FINAL REPORT -------- Dictated By: Claire Melendez Dictated Date: 03/01/2025 20:27 ET Assigned Physician: Claire Melendez Reviewed and Electronically Signed By: Claire Melendez Signed Date: 03/01/2025 20:34 ET Workstation ID: [id number] Transcribed By: Self Edit Transcribed Date: 03/01/2025 20:27 ET Kiya Balbuena CRAFT ARTIST IMG XR PROCEDURES Final Result * XR Hip 4+ Views Right (03/01/2025 4:00 PM EDT) Anatomical Region Laterality Modality Lower Extremities, Hip Right Radiograp hic Imaging 03/01/2025 8:34 PM EDT Impressions 03/01/2025 8:37 PM EDT Mild degenerative changes involving the right hip. Also, findings of right calcific trochanteric bursitis/tendinopathy. POS - [id number] -------- FINAL REPORT -------- Dictated By: Claire Melendez Dictated Date: 03/01/2025 20:34 ET Assigned Physician: Claire Melendez Reviewed and Electronically Signed By: Claire Melendez Signed Date: 03/01/2025 20:37 ET Workstation ID: [id number] Transcribed By: Self Edit Transcribed Date: 03/01/2025 20:34 ET Narrative 03/01/2025 8:37 PM EDT EXAM: Pelvic and right hip x-ray. HISTORY: Right hip pain. COMPARISON: None VIEWS: AP view of the pelvis and AP and frog-lateral views of the right hip performed. FINDINGS: Bones are osteopenic. Mild medial right hip joint space narrowing with acetabular spurring. Spurring of the right greater trochanter. Small calcifications adjacent to and superior to the right greater trochanter as seen with calcific trochanteric bursitis/tendinopathy. No evidence of an acute fracture or dislocation. Pelvic ring is intact. No destructive bone lesion. Suture material in the pelvis. Procedure Note Claire Melendez MD - 03/01/2025 EXAM: Pelvic and right hip x-ray. HISTORY: Right hip pain. COMPARISON: None VIEWS: AP view of the pelvis and AP and frog-lateral views of the righthip performed. FINDINGS: Bones are osteopenic. Mild medial right hip joint space narrowing withacetabular spurring. Spurring of the right greater trochanter. Smallcalcifications adjacent to and superior to the right greater trochanter asseen with calcific trochanteric bursitis/tendinopathy. No evidence of anacute fracture or dislocation. Pelvic ring is intact. No destructivebone lesion. Suture material in the pelvis. IMPRESSION: Mild degenerative changes involving the right hip. Also, findings of rightcalcific trochanteric bursitis/tendinopathy. POS - [id number] -------- FINAL REPORT -------- Dictated By: Claire Melendez Dictated Date: 03/01/2025 20:34 ET Assigned Physician: Claire Melendez Reviewed and Electronically Signed By: Claire Melendez Signed Date: 03/01/2025 20:37 ET Workstation ID: [id number] Transcribed By: Self Edit Transcribed Date: 03/01/2025 20:34 ET Kiya Balbuena NP IMG XR PROCEDURES Final Result * Lipid panel with reflex to direct LDL (12/04/2024 10:35 AM EDT) Cholesterol 132 0 - 200 mg/dL LAB CHEMISTRY METHOD 12/04/2024 2:25 PM [facility] Triglycerides 111 0 - 150 mg/dL LAB [facility] HDL 67 >=40 mg/dL LAB CHEMISTRY METHOD 12/04/2024 2:25 PM T [facility] LDL Calculated 43 0 - 100 mg/dL LAB CHEMISTRY METHOD [facility] VLDL Cholesterol Theo 22.2 mg/dL LAB CHEMISTRY METHOD 12/04/2024 2:25 PM [facility] Non HDL Chol. (LDL+VLDL) 65 <145 mg/dL LAB CHEMISTRY METHOD 12/04/2024 2:25 PM EDT [facility] Chol/HDL Ratio 2.0 0.0 - 4.4 LAB CHEMISTRY METHOD 12/04/2024 2:25 PM EDT [facility] Blood Venous blood specimen / Unknown Venipuncture / Unknown 12/04/2024 10:35 AM EDT 12/04/2024 10:35 AM EDT us Kiya Balbuena NP LAB BLOOD ORDERABLES Final Resu lt [facility] ([facility]) [facility] [address] [place] [address], * DXA BONE DENSITY STUDY 1+ SITS [...] (World Health Organization Fracture Risk Assessment) [facility] Department of Internal Medicine recommends using National [...] screening schedule based on will Schaefer., [facility] September 13, 2011 for patients [...] years. (World HealthOrganization Fracture Risk Assessment) [facility] Department of Internal Medicine recommendsusing National Osteoporosis [...] MEDICARE ADVANTAGE MEDICAID - [place] Care Teams Nurse First Aid Relationship Specialty Start Date End Date Feroz Reyes MD [address] [place] [id number] PCP - General Internal Medicine 09/29/20
--- OUTSIDE RECORDS SUMMARY | 2025-04-20 08:02 | XMS_ITS | Encounter Summary ---
Author Organization [facility] Address [address] [place] [address] Care Team Providers Care Steward/Stewardess Dining Room Name Role Phone Feroz Reyes MD Primary Care Provider [phone] Reason for Referral * Imaging (Routine) - Authorized Specialty Diagnoses / Procedures Referred By Contac t Referred To Contact Radiology Diagnoses Coccygeal pain Spinal stenosis of lumbar region without neurogenic claudication Procedures MR Lumbar Spine wo Contrast Kiya Balbuena NP [address] [place] [address] Phone: tel: fax: [address] [phone] Phone: tel: Referral ID Status Reason Start Date Expiration Date V isits Requested Visits Authorized [id number] Authorized 03/24/2025 05/26/2025 1 1 Reason for Visit * Reason Onset Date Comments Rectal Pain 03/24/2025 Encounter Details Date Type Department Care Team ([facility] Contact Info) Description 03/24/2025 [facility] [address] [place] [address] Feroz Reyes MD [address] [place] [phone] Social History Tobacco Use Types Packs/Day Years [...] as of this encounter Progress Notes * Elena Bain MA - 03/24/2025 2:32 PM EDT Pt notified MRI has been ordered to evaluate her pain. * Kiya Balbuena NP - 03/24/2025 11:43 AM EDT I think we should update an MRI of her lumbar spine, I do suspect her pain is radiating from the spine. I placed an order for an MRI, radiology should be contacting her to schedule. * Layla Maria LPN - 03/24/2025 9:13 AM EDT Spoke with pt she is still having pain on the inside of her right buttock and states the lump (? Tarlov cyst) is getting bigger and more painful. DENNISE 03/01 Please advise Thank you * Glen Voss - 03/24/2025 8:52 AM EDT Symptoms patient is presenting: pt c/o pain in the rt buttock (near split) region when sitting. Shestates she had a mole removed from this area yrs ago For ALL patients calling to schedule any appointment (routine, sick visit, follow up, consult, etc.) in the outpatient setting please ask the following questions: Do you have fever of higher than 101, sore throat with difficulty swallowing or severe shortness ofbreath? NO If YES to any of these above symptoms, send a message to triage and do not book. Red dot. If no, an audio or video visit should be booked. Have you had close contact with someone with Coronavirus in the last 14 days? NO Have you traveled abroad? NO Have you traveled recently to another state outside of [place], [place], [place], [place], [place], [place], [place]? NO o If yes, did you quarantine [...] vehicle accident? NO If yes, gather 3rd alliance party insurance information Date of accident/Injury: How long has patient had these symptoms?: on going PCP: Dr Reyes Payor: Yadira documented in this encounter Plan of Treatment Upcoming Encounters Date Type Department Care Team (Late st Contact Info) Description 05/11/2025 2:30 PM EDT Office Visit Internal Medicine - [address] [phone] Dairus Montoya NP [address] [place] [phone] 07/27/2025 9:30 AM EST Office Visit Internal Medicine - [address] [phone] Feroz Reyes MD [address] [place] [phone] 03/31/2026 10:30 AM EDT Appointment [facility] Ultrasound [address] [place] [phone] 04/06/2026 10:30 AM EDT Office Visit Vascular Surgery - [place] [address] [place] [phone] Karol Schafer MD 300 [facility] [address] [place] [phone] documented as of this encounter Results * MR Lumbar Spine [...] Signed Date: 04/18/2025 16:45 ET Workstation ID: [id number] Transcribed By: Self Edit Transcribed Date: 04/16/2025 [...] nerve root and compression of the left [id number] root. At L4-5 level disc is desiccated. [...] Signed Date: 04/18/2025 16:45 ET Workstation ID: [id number] Transcribed By: Self Edit Transcribed Date: 04/16/2025 19:54 ET Kiya Balbuena NP IMG MRI PROCEDURES Final Result documented in this encounter Visit Diagnoses Diagnosis Coccygeal pain- Primary Other disorder of coccyx Spinal stenosis of lumbar region without neurogenic claudication Coccygeal pain Other disorder of coccyx Spinal stenosis of lumbar region without neurogenic claudication documented in this encounter Care Teams Steward/Stewardess Dining Room Relationship Specialty Start Date End Date Feroz Reyes MD [address] [place] [address] PCP - General Internal Medicine 09/29/20 documented as of this encounter
--- OUTSIDE RECORDS SUMMARY | 2025-04-20 08:02 | XMS_ITS | Encounter Summary ---
Author Organization [facility] Address [address] [place] [address] Care Team Providers Care Dairy Cattle Farmer Name Role Phone Feroz Reyes MD Primary Care Provider [phone] Reason for Visit * Reason Onset Date Comments Results 04/19/2025 Encounter Details Date Type Department Care Team (Late st Contact Info) Description 04/19/2025 Telephone Internal Medicine - [facility] [address] [place] [phone] Elena Bain MA Social History Tobacco Use Types Packs/Day Years [...] Record ed Within the last 3 months, ho w many times did you visit the [...] care for your loved ones. For example, exceptional children teacher or elderly care for an older adult? [...] Progress Notes * Elena Bain MA - 04/19/2025 9:46 AM EDT Lvm to return call forward to ext [phone] or A side * Elena Bain MA - 04/19/2025 9:46 AM EDT ----- Message from Stefano Balbuena NP sent at 04/19/2025 9:33 AM EDT ----- Please inform the patient that: The MRI of her lumbar spine shows severe spinal stenosis but relatively unchanged compared to her MRI in 2022. If she is not finding relief in her back pain with physical therapy, I can refer her to neurosurgery for further evaluation. documented in this encounter Plan of Treatment Upcoming Encounters Date Type Department Care Team (Late st Contact Info) Description 05/11/2025 2:30 PM EDT Office Visit Internal Medicine - [address] [phone] Darius Montoya NP [address] [place] [address] 07/27/2025 9:30 AM EST Office Visit Internal Medicine - [address] [phone] Feroz Reyes MD [address] [place] [phone] 03/31/2026 10:30 AM EDT Appointment [facility] Ultrasound [address] [place] [phone] 04/06/2026 10:30 AM EDT Office Visit Vascular Surgery - [place] [address] [phone] Karol Schafer MD [address] [phone] documented as of this encounter Visit Diagnoses Not on filedocumented in this encounter Additional Health Concerns Assessment Noted Time PHQ-9 Depression Total Score: 0 04/06/20 10:33 AM EDT documented as of this encounter Care Teams Dairy Cattle Farmer Relationship Specialty Start Date End Date Feroz Reyes MD [address] [place] [phone] PCP - General Internal Medicine 09/29/20 documented as of this encounter
--- OUTSIDE RECORDS SUMMARY | 2025-04-20 08:02 | XMS_ITS | Clinical Summary ---
Author Organization [facility] Address [address] [place] [address] Care Team Providers Care Diesel Service Technician Name Role Phone Feroz Reyes MD Primary Care Provider Social History Tobacco Use Types Packs/Day [...] 1-dose 75+ series) 2016 Influenza Vaccine (#1) 2025 Hepatitis B Vaccines Aged Out No long er eligible based on patient's age to complete this topic RSV Ped < 20 months Aged Out No longe r eligible based on patient's age to complete this topic Care Teams Diesel Service Technician Relationship Specialty Start Date End Date Feroz Reyes MD PCP - General Internal Medicine 11/08/20
--- NOTE | 2025-04-20 08:29 | MHC.OFFVIS ---
Vital Signs 04/20/25 08:39 Height 4 ft 9 in Weight 113 lb BMI 24.5 BP 141/60 H Blood Pressure Location Rt brachial Position Sitting Pulse 48 L Intake Visit Reasons: diverticulitis Intake Note: Patient seen at [facility] emergency department April 05. Here today for assessment and treatment of diverticulitis. Patient c/o: has had 4 pain attacks since December. On and off diarrhea. Imaging: CT abdomen pelvis~ 04-05-2025 Screen Examiner Required: No Accompanied by: Self / Same As Patient Allergies latex Allergy (Severe, Verified 04/20/25 08:37) Rash Latex Gloves Allergy (Severe, Uncoded 04/20/25 08:37) rash Anjali spice Allergy (Severe, Uncoded 04/20/25 08:37) Rash HPI HPI diverticulitis: Details: 84 year old female with a history of hypertension, PE, PACs here for follow-up because of diverticular disease. She says she went to the ER in December 2024 as well as in March 2 weeks ago because of diarrhea as well as left lower quadrant pain. She had CAT scan showing what appeared to be early diverticulitis with mild stranding around the remaining sigmoid. She also says she has had some periods of constipation. She currently she says she feels well. She had bowel movements this morning she denies any significant pain. 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 This was eventually reversed. She denies weight loss. She said she had a colonoscopy in 2017. [facility] Medical History Hx of flexible sigmoidoscopy (~2016) Hx of diverticulitis of colon Hyperlipidemia Paresthesia Dark stools Pulmonary embolism Chest discomfort Abnormal EKG PAC (premature atrial contraction) Renal cyst Gastritis DVT (deep venous thrombosis) (~2017) Anemia HTN (hypertension) GERD (gastroesophageal reflux disease) Surgical History Hx of colonoscopy History of esophagogastroduodenoscopy (EGD) History of laparoscopic cholecystectomy History of colon resection (~2017) Family History Father No problems noted. Mother No problems noted. Social History Household Members: Children Housing: House Are you a primary urgent care nurse practitioner to a significant other at home: No Do you presently have visiting nurse or other home services: No Alcohol intake: never Patient Tobacco Use Status: Never used Tobacco Advance Directives Date on File: 10/21/23 service: No Current occupational status: retired Review of Systems Const Denies chills and Denies fever(s) Card Denies chest pain, Denies dyspnea and Denies dyspnea on exertion Resp Denies cough, Denies dyspnea and Denies dyspnea on exertion GI Denies hematochezia and Denies change in bowel habits Denies hematuria Musc Reports abnormal gait, Denies back pain, Reports arthralgias and Reports limited range of motion Neuro Reports abnormal gait, Denies focal weakness and Denies convulsions Psych Denies depression and Denies mood swings Physical Exam Vital Signs: Last Vital Signs Pulse 48 L 04/20/25 08:39 BP 141/60 H 04/20/25 08:39 BMI result Body Mass Index 24.5 Const Other: Ambulates with a walker General: comfortable and no acute distress Orientation/consciousness: patient oriented x3 Neck Neck: Yes no lymphadenopathy Resp Auscultation: clear to auscultation bilaterally Cardio Rhythm: regular rhythm GI Palpation (GI): Soft to palpation, nontender and no guarding Neuro General: patient oriented x3 Assessment & Plan Assessment & Plan (1) Diverticular disease: Code(s): K57.90 - Diverticulosis of intestine, part unspecified, without perforation or abscess without bleeding Category: Medical Plan: She has episodes of lower abdominal pain and diarrhea last December as well as 2 weeks ago. She went to the ER and had findings suggestive of mild diverticulitis She currently denies any pain. She does admit to constipation as well Her abdominal exam is very benign. I am going to send her a prescription for Metamucil. I told her that he does not have any indication for urgent surgical intervention currently I did tell her that she should stay on liquids if she has episodes of left lower quadrant pain. She is welcome to come to the office or call if she has any concerns. Coding Level of Care Code New Pt Level 3 (34304) Diagnoses Diverticular disease K57.90
[2025-04-20 08:39] VITALS: BP 141/60; PULSE 48; BMI 24.5
== END 2025-04-20 08:54 | disposition home or self-care (01) ==
PROVIDERS: PCP Internal Medicine; Visit Provider Surgery
DX: K57.90 Diverticulosis of intestine, part unspecified, without perforation or abscess without bleeding (principal)
CPT/HCPCS: 99203

== ENCOUNTER → 2025-04-20 07:57 | Outpatient (BNVA) | payer OTHER, SELFPAY | PROVIDERS: PCP Internal Medicine; Visit Provider Surgery | DX: K57.90 Diverticulosis of intestine, part unspecified, without perforation or abscess without bleeding (principal) | CPT/HCPCS: 99202 ==

== ENCOUNTER 2025-05-20 09:03 | Outpatient (AMB) | payer OTHER, MEDICAID, SELFPAY ==
--- NOTE | 2025-05-20 09:21 | MHC.OFFVIS ---
Intake Visit Reasons: 6M Allergies latex Allergy (Severe, Verified 05/20/25 09:26) Rash Latex Gloves Allergy (Severe, Uncoded 05/20/25 09:26) rash Anjali spice Allergy (Severe, Uncoded 05/20/25 09:26) Rash Medication List - Last Reconciled 05/20/25 by Neda Bright CNP acetaminophen ER 650 mg PO Q8H PRN amlodipine 5 mg See Protocol PO DAILY amoxicillin-pot clavulanate 875-125 mg 1 tab PO BID amoxicillin-pot clavulanate 875-125 mg 1 tab PO BID calcium carbonate (Antacid (calcium carbonate)) 500 mg PO TID cholecalciferol (vitamin D3) 25 mcg PO DAILY cholestyramine (with sugar) 4 gram 2 grams PO DAILY clonazepam 0.5 mg PO BEDTIME cyanocobalamin (vitamin B-12) (Vitamin B-12) 1,000 mcg PO DAILY diclofenac sodium 1% 2 grams topical BID gabapentin 300 mg PO BID gabapentin 100 mg PO BEDTIME latanoprost 0.005% 1 drp ophthalmic (eye) BEDTIME loperamide 2 mg PO Q4H PRN loratadine 10 mg PO BEDTIME metoprolol succinate ER 25 mg PO DAILY metronidazole 500 mg PO Q8H 7 days nitrofurantoin monohyd/m-cryst 100 mg (Macrobid) 100 mg PO Q12H 5 days nitroglycerin 0.4 mg sublingual DIRECTED ondansetron 4 mg PO Q6-8H PRN potassium chloride ER (Klor-Con M) 10 mEq PO BID psyllium seed (sugar) (Metamucil (sugar) oral powder) 1 tbsp PO DAILY rosuvastatin 40 mg PO DAILY timolol maleate 0.5% 1 drp ophthalmic (eye) QAM HPI Comments Details: She had two falls in the last 6 months. The first was in 11/2024 when a heavy fireproof door closed on her, causing her to fall and hit her head. She went to the ER the following day primarily for GI symptoms, but reported the fall and had CT head/neck, results below. She initially said last fall was in 02/2025, but later says it may have been in 12/2024, when she slipped on tile in kitchen, and hit head on door when she fell. No LOC, but was slightly dizzy upon standing. She did not go to hospital. Tinnitus in both ears has slightly worsened after fall. It is now happening when sitting and standing, as well as laying down. Previously, it only happened when laying flat and improved when head was elevated. Taking clonazepa at bedtime, no medication side effects. Hearing was about the same. She apparently had hearing test and was told she may need hearing aids. No significant dizziness. Occasional headaches. Sleep was okay. Chronic LBP with occasional radiation down left leg and some intermittent numbness/tingling. Epidural injections help. In the past, tinnitus had gotten a bit better, but was still there when laying down flat. It was only happening flat and improved when lying when head elevated. No tinnitus when sitting or standing. Tinnitus louder after falling and hitting R occipital area of head on 05/06/2023.?She developed steady humming in her head on lying down, it gets quite loud and interferes with sleep. If she sits up, it goes away. It is not pulsatile. It is not related to neck position or movement. No dizziness. Was seen at [facility] 09/2023 for 2-3 weeks of L sided weakness and numbness/tingling. [facility] Medical History (Updated 05/20/25 @ 09:25 by Neda Bright CNP) Chronic neck and back pain Hx of flexible sigmoidoscopy (~2016) Hx of diverticulitis of colon Hyperlipidemia Paresthesia Dark stools Pulmonary embolism Chest discomfort Abnormal EKG PAC (premature atrial contraction) Renal cyst Gastritis DVT (deep venous thrombosis) (~2017) Anemia HTN (hypertension) GERD (gastroesophageal reflux disease) Surgical History Hx of colonoscopy History of esophagogastroduodenoscopy (EGD) History of laparoscopic cholecystectomy History of colon resection (~2017) Family History Father No problems noted. Mother No problems noted. Social History Household Members: Children Housing: House Are you a primary personal care home administrator to a significant other at home: No Do you presently have visiting nurse or other home services: No Alcohol intake: never Patient Tobacco Use Status: Never used Tobacco Advance Directives Date on File: 10/21/23 service: No Current occupational status: retired Review of Systems Const Denies chills, Denies daytime sleepiness, Denies difficulty sleeping, Denies fatigue, Denies fever(s), Denies frequent falls, Reports headache(s), Denies increased appetite, Denies poor appetite, Denies snoring, Denies weakness, Denies weight gain and Denies weight loss Eyes Denies loss of vision ENT Denies vertigo, Denies dizziness, Reports headache(s), Reports neck pain and Reports tinnitus Card Denies chest pain at rest, Denies chest pain with activity, Denies syncope, Denies leg edema, Denies palpitations, Denies dyspnea and Denies dyspnea on exertion Resp Denies cough, Denies dyspnea, Denies dyspnea on exertion and Denies snoring GI Denies abdominal pain, Denies constipation, Denies heartburn, Denies diarrhea and Denies nausea Denies urinary frequency, Denies urinary incontinence and Denies urinary urgency Musc Denies abnormal gait, Reports back pain, Reports myalgias, Denies arthralgias, Reports neck pain, Denies numbness and Denies tingling Neuro Denies abnormal gait, Denies vertigo, Denies dizziness, Denies syncope, Denies frequent falls, Reports headache(s), Denies lack of coordination, Denies loss of vision, Denies memory loss, Denies numbness, Denies Other visual disturbances, Denies restless legs, Denies seizure-like activity, Denies tingling, Denies paresthesias, Denies tremor(s) and Denies weakness Psych Reports anxiety, Denies depression, Denies auditory hallucinations, Denies memory loss and Denies visual hallucinations Endo Denies fatigue and Denies palpitations Physical Exam Const Other: General Appearance:? normal, in no acute distress. Heart:? S1, S2 normal, no murmurs. Lungs:? clear anteriorly and posteriorly. Musculoskeletal:? normal. Extremities:? no edema. Psych:? alert, oriented, cognitive function intact, cooperative with exam. Neuro Other: Abnormal Neurological Findings:?Generalized weakness LLE 5-/5. Walking with walker. Mental Status: alert and oriented X 3. Normal attention, orientation, memory, and affect. Cranial Nerves: Pupils are equal, round, and reactive to light. External ocular muscles are intact. Visual trujillo are full, no ptosis. Face is symmetrical, no facial weakness or droop. Facial sensations are normal. Tongue protrudes in midline. Palate elevates symmetrically. Shoulder shrugging is normal Motor Examination: As above, otherwise normal muscle tone, bulk and strength. No atrophy or fasciculations. No drift of the extended upper extremities. DTR 2+. Plantars are flexor. Sensory Exam: Normal light touch, temperature, pinprick, vibration, and joint-position sensations. Rhomberg sign is absent. Coordination: No ataxia. No titubation. Gait Exam: With walker. Cerebellar Signs: [id number] is okay. Extrapyramidal System: No tremor, rigidity with normal facial expressions. No bradykinesia. No bradyphrenia. Normal arm swing and posture. No propulsion or retropulsion. Speech: Normal. Results Reviewed Results Reviewed: [place] [address] CT Scan Report Signed Patient: Prema Carpenter MR#: [id number] : 1940 Acct:[id number] Age/Sex: 84 / F ADM Date: 11/25/24 Loc: HO.ED Attending Dr: Ordering Physician: Fariha Wade Date of Service: 11/25/24 Procedure(s): CT head/brain wo IV con Accession Number(s): [id number] cc: Fariha Wade; THEO KHAN MD~ Report Number: [id number]: Total DLP = 0.00 mGy-cm CLINICAL HISTORY: fall CT head without contrast Comparison: CT/REG/SR - CT HEAD/BRAIN WO IV CON - 10/15/23 19:31 EST Findings: No intra-axial mass, midline shift, hydrocephalus, or acute hemorrhage. There is mild atrophy. There are nonspecific supratentorial white matter hypodensities most suggestive of chronic small-vessel ischemic changes. Atherosclerotic vascular disease There is no sinus or mastoid fluid. The orbits are within normal limits. There is no acute skull fracture. IMPRESSION: 1. No acute intracranial findings. This document has been electronically signed by: Gela Stroud MD on 11/25/2024 19:40:[address] [place] [address] [address] Scan Report Signed Patient: Prema Carpenter MR#: [id number] : 1940 Acct:[id number] Age/Sex: 84 / F ADM Date: 11/25/24 Loc: HO.ED Attending Dr: Ordering Physician: Fariha Wade Date of Service: 11/25/24 Procedure(s): CT cervical spine wo IV con Accession Number(s): [id number] cc: Fariha Wade; THEO KHAN MD~ Report Number: [id number]: Total DLP = 833.00 mGy-cm CLINICAL HISTORY: fall CT cervical spine without contrast Comparison: None Findings: Cervical alignment is maintained. Vertebral body height is maintained. No acute fracture in the cervical spine. Craniocervical junction is intact. Multilevel degenerative changes especially from C4-5 to C6-7. Facet arthropathy. C3-4 mild disc bulge. C4-5 small central disc herniation with calcification and mild canal stenosis. Mild spondylotic disc bulges C5-6 and C6-7. Prevertebral soft tissues within. Atherosclerotic vascular disease. 6 mm hypodense left thyroid lobe nodule. Lung apices are clear IMPRESSION: 1 No acute findings. 2. Nonacute findings as described. This document has been electronically signed by: Gela Stroud MD on 11/25/2024 19:34:07 MRI brain at [facility] [place]2023: Negative CTA at [facility] 09/2023: No significant stenosis Assessment & Plan Assessment & Plan (1) Bilateral tinnitus: Code(s): H93.13 - Tinnitus, bilateral Category: Medical Plan: CT head/neck results reviewed, no acute findings. MRI brain ordered. Continue clonazepam 0.5mg 1 tablet at bedtime. (2) Chronic neck and back pain: Code(s): M54.2 - Cervicalgia; M54.9 - Dorsalgia, unspecified; G89.29 - Other chronic pain Category: Medical Plan . Orders: Orders MR head/brain wo con Today H93.13 - Tinnitus, bilateral Coding Level of Care Code Est Pt Level 4 (88124) Diagnoses Bilateral tinnitus H93.13 Chronic neck and back pain M54.2; M54.9; G89.29
--- OUTSIDE RECORDS SUMMARY | 2025-05-20 09:48 | XMS_ITS | Clinical Summary ---
Author Organization [facility] Address [address] [place] [address] Care Team Providers Care Front Desk Admin Name Role Phone Feroz Reyes MD Primary Care Provider [phone] Social History Tobacco Use Types Packs/Day Years [...] age to complete this topic Care Teams Front Desk Admin Relationship Specialty Start Date End Date Feroz Reyes MD PCP - General Internal Medicine 11/08/20
--- OUTSIDE RECORDS SUMMARY | 2025-05-20 09:48 | XMS_ITS | Clinical Summary ---
Author Organization [facility], Address [address] [place] [address] [place] [address] Phone Care Team Providers Care Mowing Machine Operator Name Role Phone Genaro Herrera Primary Care Provider [phone] Allergies Active Allergy Reactions Criticality Noted Date [...] by mouth 10/31/2020 Active ergocalciferol 1.25 MG (55634 UT) capsule TAKE 1 CAPSULE BY MOUTH [...] complete this topic Insurance Yadira Care Teams Mowing Machine Operator Relationship Specialty Start Date End Date Genaro Herrera [address] [place] [id number] PCP - General Internal Medicine 02/16/21
--- OUTSIDE RECORDS SUMMARY | 2025-05-20 09:48 | XMS_ITS | Encounter Summary ---
Author Organization [facility] Address [address] [place] [address] Care Team Providers Care Newspaper Distributor Supervisor Name Role Phone Feroz Reyes MD Primary Care Provider [phone] Encounter Details Date Type Department Care Team (Late st Contact Info) Description 05/13/2025 Telephone [facility] [address] [place] [phone] Dionicio Stark PA [address] [place], [place] [id number] Social History Tobacco Use Types Packs/Day Years [...] for your loved ones. For example, child daycare worker or elderly care for an older adult? [...] as of this encounter Progress Notes * IVELISSE Jennings - 05/18/2025 4:48 PM EDT I spoke to Ms. Carpenter and let her know that I had reviewed her xrays of the lumbar spine and hip. I told her that she could begin physical therapy. * Nadine Manzo MA - 05/14/2025 9:29 AM EDT Patient returned your call * IVELISSE Jennings - 05/13/2025 11:13 AM EDT I called the patient to let her know that I had reviewed x-rays of the lumbar spine and hip. The hip showed mild osteoarthritis. The lumbar spine x-rays showed multilevel degenerative changes. I think it is okay for her to proceed with physical therapy. Will discuss with her when she returns my call. documented in this encounter Plan of Treatment Upcoming Encounters Date Type Department Care Team (Late st Contact Info) Description 05/28/2025 2:30 PM EDT Appointment [facility] Ultrasound [address] [place] [address] 07/27/2025 9:30 AM EST Office Visit Internal Medicine - [address] [phone] Feroz Reyes MD [address] [place] [id number] 03/31/2026 10:30 AM EDT Appointment [facility] Ultrasound [address] [place] [phone] 04/06/2026 10:30 AM EDT Office Visit Vascular Surgery - [place] [address] [place] [address] Karol Schafer MD [address] [place] [phone] documented as of this encounter Visit Diagnoses Not on filedocumented in this encounter Additional Health Concerns Assessment Noted Time PHQ-9 Depression Total Score: 0 04/06/20 25 10:33 AM EDT documented as of this encounter Care Teams Newspaper Distributor Supervisor Relationship Specialty Start Date End Date Feroz Reyes MD [address] [place] [phone] PCP - General Internal Medicine 09/29/20 documented as of this encounter
--- OUTSIDE RECORDS SUMMARY | 2025-05-20 09:48 | XMS_ITS | Clinical Summary ---
Author Organization [facility] Address [address] [place] [phone] Phone Care Team Providers Care Ophthalmic Medical Assistant Name Role Phone Feroz Reyes MD Primary Care Provider [phone] Allergies Active Allergy Reactions Criticality Noted Date Comments Latex Itching,Hives 10/31/2020 Anjali Oil Itching 10/31/2020 Medications calcium carbonate EX (Antacid Extra-Strength) 300 mg (750 mg) chewable tablet Take 1 Tablet by mouth daily. Active calcium carbonate (CALCIUM 500 ORAL) CALCIUM 500-2.5 MG-MCG CHEW TAB: Take by mouth daily. Active CHOLECALCIFEROL, VITAMIN D3, ORAL Take 1,000 mg by mouth. Active cholestyramine (QUESTRAN) 4 gram powder 021 Active cyanocobalamin (VIT B-12) 1,000 mcg tablet extended release ER tablet Take by mouth daily. Active diclofenac (VOLTAREN) 1 % topical gel Apply topically 2 times daily. Active metoprolol succinate (TOPROL-XL) 25 mg 24 hr tablet 1 Tablet daily. 024 Active netarsudiL (Rhopressa) 0.02 % drops 024 Active gabapentin (NEURONTIN) 300 mg capsule TAKE 1 CAPSULE BY MOUTH TWICE DAILY (in addition to 100 MG capsule at night) 180 capsule 1 025 Active loperamide (IMODIUM) 2 mg capsule Take 1 capsule (2 mg total) by mouth if needed. 025 Active rosuvastatin (CRESTOR) 40 mg tablet Take 1 tablet (40 mg total) by mouth 1 (one) time each day. 90 tablet 1 Active gabapentin (NEURONTIN) 100 mg capsule TAKE 1 CAPSULE BY MOUTH EVERY NIGHT IN ADDITION TO 300 MG CAPSULE 90 capsule 1 Active prednisoLONE acetate (PRED FORTE) 1 % ophthalmic suspension Administer 1 drop into both eyes 2 (two) times a day. Active loratadine (CLARITIN) 10 mg tablet TAKE 1 TABLET BY MOUTH ONE TIME EACH DAY 90 tablet 1 Active amLODIPine (NORVASC) 5 mg tablet TAKE 1 TABLET BY MOUTH DAILY 90 tablet 1 Active potassium chloride (KLOR-CON) 10 mEq CR tablet TAKE 1 TABLET BY MOUTH TWICE DAILY 180 tablet 1 Active ondansetron ODT (ZOFRAN-ODT) 4 mg disintegrating tablet Active neomycin-polymyxi n-dexamethamethas one (POLYDEX) 3.5 mg/g-10,000 unit/g-0.1 % ointment Active clonazePAM (KlonoPIN) 0.5 mg tablet Take 1 tablet (0.5 mg total) by mouth 2 (two) times a day. Active lidocaine (LIDODERM) 5 % patchIndications: Chronic midline low back pain without sciatica Apply 1 patch topically 1 (one) time each day. 30 each 025 2024 Active acetaminophen (TYLENOL 8 HOUR) 650 mg 8 hr tabletIndications :Chronic midline low back pain without sciatica Take 1 tablet (650 mg total) by mouth every 8 (eight) hours if needed for moderate pain. for pain 30 tablet 1 025 2024 Active nitroglycerin (NITROSTAT) 0.4 mg SL tabletIndications :Angina of effort (CMS/HCC V24) Place 1 tablet (0.4 mg total) under the tongue every 5 (five) minutes if needed for chest pain. 90 tablet Active acetaminophen (TYLENOL 8 HOUR) 650 mg 8 hr tablet Take 1 Tablet by mouth every 8 hours as needed for Pain. 024 2024 Discontinued(R eorder) brimonidine (ALPHAGAN P) 0.15 % ophthalmic solution 2 times daily. 024 2024 Discontinued nitroglycerin (NITROSTAT) 0.[address] 1 Tablet under the tongue every 5 minutes as needed for Chest pain. 023 2024 Discontinued(R eorder) lidocaine (LIDODERM) 5 % patch Apply 1 patch topically 1 (one) time each day. 025 2024 Discontinued(R eorder) amoxicillin-clavu lanate (AUGMENTIN) 875-125 mg per tablet Take 1 tablet by mouth 2 (two) times a day. 025 2024 Discontinued Active Problems Problem Noted Date Diagnosed Date Spinal stenosis of lumbar re gion with neurogenic claudication 05/05/2025 Assessment & Plan (05/05/2025 11:16 AM EDT): Ms. Carpenter describes several years of low back pain with radiation to the left leg. She describes pain and numbness down the anterior aspect of the left leg into the bruner. She feels like she drags her foot when she walks. She has not had any significant conservative treatment for this problem. On exam, she ambulates with a walker and did not pick her left foot up very high but she did have good strength to confrontational testing. Reflexes were 1-2+ and symmetric. Her MRI shows desiccation of the lumbar disks throughout. There was some anterolisthesis mild at L4 on L5 and to a greater degree of L5 on S1. At this time, she is inclined to try some physical therapy and I think that that is reasonable. Will get some x-rays of the lumbar spine with flexion and extension views to rule out any instability. She will follow-up with us at the end of the therapy. Trochanteric bursitis of left hip 05/05/2025 Assessment & Plan (05/05/2025 11:18 AM EDT): Ms. Carpenter complains of left hip pain. She had a positive left hip mechanical test. Palpation of the left greater trochanter did significantly reproduce a portion of her pain. The right greater trochanteric bursa was not tender. I am going to send her for some x-rays of the left hip and a left sided ultrasound-guided trochanteric bursa injection. I will include the trochanteric bursitis in her physical therapy prescription as well. She will follow-up with us at the conclusion of the therapy. Chronic midline low back pain without sciatica 0 01/25/2025 Diverticulitis 01/25/2025 Assessment & Plan (04/12/2025 12:56 PM EDT): She was prescribed Augmentin by [facility] and she will complete a course. Symptoms have improved. I have placed a referral to gastroenterology (Dr. Blunt at [place]) for her. She will also keep her appointment with the surgeon, Dr. Gallegos. Orders: Ambulatory referral to Gastroenterology; Future Assessment [...] (06/15/2024): Covid 07/03/23 PVD (peripheral vascular disease) ([facility] V24) 02/28/2023 Stage 3 chronic kidney disease ([facility] V24, [facility] V28) 03/31/2021 Hypercholesterolemia 12/26/2020 Nephrolithiasis 12/26/2020 Anemia 12/26/2020 Bilateral renal cysts 12/15/2020 Adrenal adenoma, right 12/07/2020 Gastroesophageal reflux disease 10/31/2020 Essential hypertension 10/31/2020 Cervical radiculopathy 10/31/2020 Encounters Date Type Department Care Team Description 05/13/2025 Telephone Neurosurgery [facility] [address] [place] [phone] Dionicio Stark PA 05/13/2025 Telephone Internal Medicine - [facility] [address] [place], [place] [phone] Lakisha Doshi MA 05/11/2025 3:24 PM EDT - 05/11/2025 11:59 PM EDT Hospital Encounter Xray - [facility] [address] [place] [phone] Trochanteric bursitis of left hip Discharge Disposition: Home or Self Care 05/11/2025 3:24 PM EDT - 05/11/2025 11:59 PM EDT Hospital Encounter Xray - [facility] [address] [place] [phone] Spinal stenosis of lumbar region with neurogenic claudication Discharge Disposition: Home or Self Care 05/11/2025 3:24 PM EDT - 05/11/2025 11:59 PM EDT Hospital Encounter Xray - [facility] [address] [place], [place] [phone] Chronic midline low back pain without sciatica Discharge Disposition: Home or Self Care 05/11/2025 2:30 PM EDT Office Visit Internal Medicine - [facility] [address] [place] [phone] Darius Montoya NP Chronic midline low back pain without sciatica (Primary Dx); Immunization due; Angina of effort (CMS/HCC V24); Closed fracture of coccyx, initial encounter (CMS/HCC V24, CMS/HCC V28) 05/05/2025 10:30 AM EDT Consult Neurosurgery [facility] [address] [facility] [address] [place] [phone] Dionicio Stark PA Trochanteric bursitis of left hip (Primary Dx); Spinal stenosis of lumbar region with neurogenic claudication 04/20/2025 [facility] [address] [place] [address] Elena Bain MA 04/19/2025 [facility] [address] [place] [address] Elena Bain MA 04/16/2025 9:15 AM EDT - 04/16/2025 11:59 PM EDT Hospital Encounter Radiology Department - [address] [phone] Coccygeal pain; Spinal stenosis of lumbar region without neurogenic claudication Discharge Disposition: Home or Self Care 04/12/2025 11:00 AM EDT [facility] [address] [place] [address] Genaro Shaikh MD Diverticulitis (Primary Dx); Kidney cysts; Adenoma of right adrenal gland; Pressure injury of sacral region, stage 1 04/09/2025 Telephone Internal Medicine - [facility] [address] [place] [address] Feroz Reyes MD 04/07/2025 Telephone Gastroenterology - [address] [facility] [address] [place] [phone] Haleigh Martines PA 04/06/2025 10:00 AM EDT [facility]icine [facility] [address] [place] [address] Routine general medical examination at a health care facility (Primary Dx); Encounter for subsequent annual wellness visit (AWV) in Medicare patient 03/31/2025 9:30 AM EDT Office Visit Vascular Surgery - [place] [address] [facility] [address] [place] [phone] Karol Schafer MD Asymptomatic stenosis of left carotid artery (Primary Dx); Asymptomatic bilateral carotid artery stenosis 03/26/2025 Telephone Internal Medicine - [facility] [address] [place], [place] [phone] Feroz Reyes MD 03/24/2025 Telephone Internal Medicine - [facility] [address] [place], [place] [phone] Freoz Reyes MD 03/18/2025 Telephone Gastroenterology - [address] [phone] Haleigh Martines PA 03/17/2025 8:37 AM EDT - 03/17/2025 11:59 PM EDT Hospital Encounter Ultrasound - [facility] [address] [place], [place] [phone] Anorexia; Abnormal weight loss Discharge Disposition: Home or Self Care 03/16/2025 8:43 AM EDT - 03/16/2025 11:59 PM EDT Hospital Encounter [facility] Ultrasound [address] [place] [address] Carotid stenosis Discharge Disposition: Home or Self Care 03/10/2025 10:18 AM EDT - 03/10/2025 11:59 PM EDT Hospital Encounter [facility] Xray [address] [place] [phone] Diverticulitis Discharge Disposition: Home or Self Care 03/10/2025 9:40 AM EDT Consult Gastroenterology - [address] [phone] Haleigh Martines PA Diverticulitis 03/10/2025 Telephone Gastroenterology - [address] [phone] Riya Tony MA 03/01/2025 3:45 PM EDT - 03/01/2025 11:59 PM EDT Hospital Encounter Xray - [facility] [address] [place], [place] [phone] Abnormal weight loss Discharge Disposition: Home or Self Care 03/01/2025 3:45 PM EDT - 03/01/2025 11:59 PM EDT [facility] [address] [place], [place] [address] [phone] Right hip pain Discharge Disposition: Home or Self Care 03/01/2025 3:44 PM EDT - 03/01/2025 11:59 PM EDT Hospital Encounter Xray - [address] [place] [address] Coccygeal pain; Chronic right-sided low back pain without sciatica Discharge Disposition: Home or Self Care 03/01/2025 3:30 PM EDT Office Visit Internal Medicine - [address] [place] [phone] Kiya Balbuena NP Coccygeal pain (Primary Dx); Chronic right-sided low back pain without sciatica; Right hip pain; Anorexia; Abnormal weight loss; Diverticulitis 02/25/2025 Telephone Internal Medicine - [address] [phone] Feroz Reyes MD from Last 3 Months Immunizations Name Administration Dates Next Due Influenza trivalent, 0.5mL ( Fluad) 65yo and older 05/21/2023,06/22/2022,05/26/2021 Pfizer SARS-CoV-2 COVID-19, mRNA, LNP-S, preservative free 08/09/2021 Pneumococcal conjugate 20 va lent (Prevnar 20, PCV 20) 2mo and older 11/16/2022 Pneumococcal polysaccharide 23 valent (Pneumovax 23) 2yo and older 07/30/2019 Td Tetanus diptheria (Tdvax) 7yo and older 11/16 Tdap Tetanus diptheria acell ular pertussis (Boostrix; Adacel) 7yo and older 05/21/2023 Zoster recombinant (Shingrix ) 19yo and older 05/15/2022,03/20/2022 Surgical History Surgery Date Site/Laterality Comments HYSTERECTOMY 1979 PROCEDURE: HISTORICAL HYSTERECTOMY OTHER SURGICAL HISTORY PROCEDURE: HISTORICAL COLOSTOMY; COMMENT: khalida colostomy 02/2016 CHOLECYSTECTOMY PROCEDURE: HISTORICAL CHOLECYSTECTOMY; COMMENT: laparoscopic 04/12/2019 CARDIAC CATHETERIZATION PROCEDURE: HISTORICAL CARDIAC CATH CHOLECYSTECTOMY PROCEDURE: AR LAPAROSCOPY SURG CHOLECYSTECTOMY COLONOSCOPY PROCEDURE: HISTORICAL COLONOSCOPY [...] 11/2021 DX:Bartholin's cyst Bronchitis Arthritis R hip High blood pressure Family History Medical History Relation Name Comments [...] care for your loved ones. For example, childrens club attendant or elderly care for an older adult? [...] Sign Reading Time Taken Comments Blood Pressure 144/56 05/11/2025 2:37 PM EDT Pulse 52 05/11/2025 2:37 PM EDT Temperature - - Respiratory Rate - - Oxygen Saturation - - Inhaled Oxygen Concentration - - Weight 50.9 kg (112 lb 3.2 oz) 05/11/2025 2:37 P M EDT Height 144.8 cm (4' 9 ) 05/11/2025 2:37 PM EDT Body Mass Index 24.28 05/11/2025 2:37 PM EDT Plan of Treatment Upcoming Encounters Date Type Department Care Team (Late st Contact Info) Description 05/28/2025 2:30 PM EDT Appointment [facility] Ultrasound [address] [place] [phone] 07/27/2025 9:30 AM EST Office Visit Internal Medicine - [address] [phone] Feroz Reyes MD [address] [place] [phone] 03/31/2026 10:30 AM EDT Appointment [facility] Ultrasound [address] [place] [address] 04/06/2026 10:30 AM EDT Office Visit Vascular Surgery - [place] [address] [place] [address] Karol Schafer MD [address] [place] [phone] Health Maintenance Due Date Last Done Comments RSV Immunization Adult Patients (1 - 1-dose 75+ series) 2016 COVID-19 Vaccine (5 - Pfizer risk season) 2025 06/17/2024, 08/09/2021, 11/01/2020, Additional history exists Influenza Vaccine (#1) 2025 , 06/22/2022, 05/26/2021 Hypertension/CHF/CAD Annual BMP Blood Test 03/17/2026 03/17/2025, [...] Procedure Name Priority Date/Time Associated Diagnosis Comments XR LUMBAR SPINE 4+ VIEWS Routine 05/11/2025 3:51 PM EDT Spinal stenosis of lumbar region with neurogenic claudication XR HIP 2-3 VIEWS RIGHT Routine 05/11/2025 3:51 PM EDT Trochanteric bursitis of left hip XR SACRUM COCCYX 2+ VIEWS Routine 05/11/2025 3:51 PM EDT Chronic midline low back pain without sciatica HOME HEALTH ORDER 05/11/2025 MR LUMBAR SPINE WO CONTRAST Routine 04/16/2025 [...] 10:35 AM EDT PVD (peripheral vascular disease) ([facility] V24) Hypercholesterolemia DXA BONE DENSITY STUDY 1+ SITS AXIAL SKEL Routine 08/03/2022 9:21 AM EST Encounter for screening for osteoporosis from Last 3 Months or Most Recently Relevant to Health Maintenance Results * XR Lumbar Spine 4+ Views (05/11/2025 3:51 PM EDT) Only the most recent of2 resultswithin the time period is included. Anatomical Region Laterality Modality Spine, L-spine Radiographic Cinthya ging 05/11/2025 7:57 PM EDT Impressions 05/11/2025 7:58 PM EDT Moderate degenerative changes of the lumbar spine. -------- FINAL REPORT -------- Dictated By: Kathy Villafana Dictated Date: 05/11/2025 19:57 ET Assigned Physician: Kathy Villafana Reviewed and Electronically Signed By: Kathy Villafana Signed Date: 05/11/2025 19:58 ET Workstation ID: [id number] Transcribed By: Self Edit Transcribed Date: 05/11/2025 19:57 ET Narrative 05/11/2025 7:58 PM EDT HISTORY: back pain TECHNIQUE: 4 views of the lumbar spine COMPARISON: Lumbar spine radiograph from 03/01/2025 FINDINGS: Vertebral body height is grossly maintained. Decreased disc height at L5-S1 with endplate sclerosis. Moderate facet arthropathy is present at the lower lumbar spine. Moderate neuroforaminal stenosis at multiple levels. Large amount stool throughout the colon. Surgical montrell overlying the right upper quadrant. Procedure Note Kathy Villafana MD - 05/11/2025 HISTORY: back pain TECHNIQUE: 4 views of the lumbar spine COMPARISON: Lumbar spine radiograph from 03/01/2025 FINDINGS: Vertebral body height is grossly maintained. Decreased disc height atL5-S1 with endplate sclerosis. Moderate facet arthropathy is present atthe lower lumbar spine. Moderate neuroforaminal stenosis at multiplelevels. Large amount stool throughout the colon. Surgical staplesoverlying the right upper quadrant. IMPRESSION: Moderate degenerative changes of the lumbar spine. -------- FINAL REPORT -------- Dictated By: Kathy Villafana Dictated Date: 05/11/2025 19:57 ET Assigned Physician: Kathy Villafana Reviewed and Electronically Signed By: Kathy Villafana Signed Date: 05/11/2025 19:58 ET Workstation ID: [id number] Transcribed By: Self Edit Transcribed Date: 05/11/2025 19:57 ET Dionicio OVIEDO IMG XR PROCEDURES Final Resul t * XR Hip 2-3 Views Right (05/11/2025 3:51 PM EDT) Anatomical Region Laterality Modality Lower Extremities, Hip Right Radiograp hic Imaging 05/11/2025 8:00 PM EDT Impressions 05/11/2025 8:02 PM EDT No acute fracture or dislocation of the right hip. Minimal osteoarthritic degenerative changes of the right hip. -------- FINAL REPORT -------- Dictated By: Kathy Villafana Dictated Date: 05/11/2025 20:00 ET Assigned Physician: Kathy Villafana Reviewed and Electronically Signed By: Kathy Villafana Signed Date: 05/11/2025 20:02 ET Workstation ID: [id number] Transcribed By: Self Edit Transcribed Date: 05/11/2025 20:00 ET Narrative 05/11/2025 8:02 PM EDT HISTORY: Hip pain, chronic, osteoarthritis suspected TECHNIQUE: Frontal and lateral radiographs of the right hip.An AP radiograph of the pelvis was obtained to assess joint symmetry. COMPARISON: Right hip radiograph from 03/01/2025 FINDINGS: No fracture or dislocation is seen. The hip joint is well-maintained with normal alignment. Subchondral sclerosis of the superior right acetabulum. The femoral head is well-seated within the acetabulum. Enthesopathy at the greater trochanter. Postoperative changes of the pelvis. Procedure Note Kathy Villafana MD - 05/11/2025 HISTORY: Hip pain, chronic, osteoarthritis suspected TECHNIQUE: Frontal and lateral radiographs of the right hip.An APradiograph of the pelvis was obtained to assess joint symmetry. COMPARISON: Right hip radiograph from 03/01/2025 FINDINGS: No fracture or dislocation is seen. The hip joint is well-maintained withnormal alignment. Subchondral sclerosis of the superior right acetabulum.The femoral head is well-seated within the acetabulum. Enthesopathy at thegreater trochanter. Postoperative changes of the pelvis. IMPRESSION: No acute fracture or dislocation of the right hip. Minimal osteoarthritic degenerative changes of the right hip. -------- FINAL REPORT -------- Dictated By: Kathy Villafana Dictated Date: 05/11/2025 20:00 ET Assigned Physician: Kathy Villafana Reviewed and Electronically Signed By: Kathy Villafana Signed Date: 05/11/2025 20:02 ET Workstation ID: [id number] Transcribed By: Self Edit Transcribed Date: 05/11/2025 20:00 ET us Dionicio OVIEDO IMG XR PROCEDURES Final Resul t * XR Sacrum Coccyx 2+ Views (05/11/2025 3:51 PM EDT) Anatomical Region Laterality Modality Body, Spine, Pelvis Radiographic Imaging 05/11/2025 7:58 PM EDT Impressions 05/11/2025 8:00 PM EDT Irregularity of the coccyx, this could represent an acute versus chronic fracture. Extensive degenerative changes limit evaluation. Correlate with point tenderness. -------- FINAL REPORT -------- Dictated By: Kathy Villafana Dictated Date: 05/11/2025 19:58 ET Assigned Physician: Kathy Villafana Reviewed and Electronically Signed By: Kathy Villafana Signed Date: 05/11/2025 20:00 ET Workstation ID: [id number] Transcribed By: Self Edit Transcribed Date: 05/11/2025 19:58 ET Narrative 05/11/2025 8:00 PM EDT EXAMINATION: XR SACRUM COCCYX 2+ VIEWS 05/11/2025 3:33 PM Patient : 1940 CLINICAL DATA/INDICATIONS: OTHER pain coccyx COMPARISON: Lumbar spine radiograph from 05/11/2025 FINDINGS: 2 views of the sacrum and coccyx demonstrates irregularity of the coccyx best seen on the lateral view. Surgical montrell overlying the pelvis. Extensive degenerative changes at the lower lumbar spine and pubic symphysis. Procedure Note Kathy Villafana MD - 05/11/2025 EXAMINATION: XR SACRUM COCCYX 2+ VIEWS 05/11/2025 3:33 PM Patient :1940 CLINICAL DATA/INDICATIONS: OTHER pain coccyx COMPARISON: Lumbar spine radiograph from 05/11/2025 FINDINGS: 2 views of the sacrum and coccyx demonstrates irregularity of the coccyxbest seen on the lateral view. Surgical montrell overlying the pelvis.Extensive degenerative changes at the lower lumbar spine and pubicsymphysis. IMPRESSION: Irregularity of the coccyx, this could represent an acute versus chronicfracture. Extensive degenerative changes limit evaluation. Correlate withpoint tenderness. -------- FINAL REPORT -------- Dictated By: Kathy Villafana Dictated Date: 05/11/2025 19:58 ET Assigned Physician: Kathy Villafana Reviewed and Electronically Signed By: Kathy Villafana Signed Date: 05/11/2025 20:00 ET Workstation ID: [id number] Transcribed By: Self Edit Transcribed Date: 05/11/2025 19:58 ET Darius Montoya [facility] IMG XR PROCEDURES Final Result * Home Health Order (05/11/2025) Provider [facility] Gris l Result * MR Lumbar Spine wo Contrast (04/16/2025 [...] Signed Date: 04/18/2025 16:45 ET Workstation ID: [id number] Transcribed By: Self Edit Transcribed Date: 04/16/2025 [...] nerve root and compression of the left [id number] root. At L4-5 level disc is desiccated. [...] Signed Date: 04/18/2025 16:45 ET Workstation ID: [id number] Transcribed By: Self Edit Transcribed Date: 04/16/2025 [...] Signed Date: 03/17/2025 13:38 ET Workstation ID: [id number] Transcribed By: Self Edit Transcribed Date: 03/17/2025 [...] Signed Date: 03/17/2025 13:38 ET Workstation ID: [id number] Transcribed By: Self Edit Transcribed Date: 03/17/2025 13:33 ET Kiya Balbuena NP IMG US PROCEDURES Final Result * Thyroid stimulating hormone with reflex to free t4 and free t3 (03/17/2025 9:22 AM EDT) TSH 2.87 0.40 - 4.00 mcIU/mL LAB CHEMISTRY METHOD 03/17/2025 4:39 PM EDT [facility] Blood Venous blood specimen / Unknown Venipuncture / Unknown 03/17/2025 9:22 AM EDT 03/17/2025 9:22 AM EDT Kiya Balbuena NP LAB BLOOD ORDERABLES Final Resu lt [facility] [address] [place] [address], * (ABNORMAL) CBC auto differential (03/17/2025 9:22 AM EDT) [facility] WBC 7.3 4.8 - 10.8 K/mcL LAB HEMETOLOGY METHOD 03/17/2025 12:45 PM EDT [facility] RBC 3.90 3.80 - 4.80 M/mcL LAB HEMETOLOGY METHOD 03/17/2025 12:45 PM EDT [facility] Hemoglobin 11.5 11.5 - 16.0 g/dL LAB HEMETOLOGY METHOD 03/17/2025 12:45 PM EDT [facility] Hematocrit 36.8 35.0 - 47.0 % LAB HEMETOLOGY METHOD 03/17/2025 12:45 PM EDT [facility] MCV 93.4 79.0 - 98.0 FL LAB HEMETOLOGY METHOD 03/17/2025 12:45 PM EDT [facility] MCH 29.2 27.0 - 32.0 pcg LAB HEMETOLOGY METHOD 03/17/2025 12:45 PM EDT [facility] MCHC 31.3(L) 32.0 - 37.0 g/dL LAB HEMETOLOGY METHOD 03/17/2025 12:45 PM EDT [facility] RDW 14.1 11.0 - 15.0 % LAB HEMETOLOGY METHOD 03/17/2025 12:45 PM EDT [facility] Platelets 204 130 - 400 K/mcL LAB HEMETOLOGY METHOD 03/17/2025 12:45 PM EDT [facility] MPV 10.8 7.0 - 11.0 FL LAB HEMETOLOGY METHOD 03/17/2025 12:45 PM EDT [facility] NRBC 0.0 <1.0 % LAB HEMETOLOGY METHOD 03/17/2025 12:45 PM EDT [facility] NRBC Absolute 0.00 <0.10 K/mcL LAB HEMETOLOGY METHOD 03/17/2025 12:45 PM [facility] Neutrophils Relative 54.6 % LAB [facility]OLOGY [facility] Lymphocytes Relative 35.6 % LAB HEMETOLOGY METHOD 03/17/2025 12:45 PM [facility] Monocytes Relative 7.9 % LAB HEMETOLOGY METHOD 03/17/2025 12:45 PM [facility] Eosinophils Relative 1.0 % LAB HEMETOLOGY METHOD 03/17/2025 12:45 PM [facility] Basophils Relative 0.5 % LAB HEMETOLOGY METHOD 03/17/2025 12:45 PM [facility] Immature Granulocytes Relative 0.4 % LAB HEMETOLOGY METHOD 03/17/2025 12:45 PM [facility] Neutrophils Absolute 3.98 1.50 - 7.00 K/mcL LAB HEMETOLOGY METHOD 03/17/2025 12:45 PM [facility] Lymphocytes Absolute 2.60 1.00 - 5.00 K/mcL LAB HEMETOLOGY METHOD 03/17/2025 12:45 PM [facility] Monocytes Absolute 0.58 0.20 - 1.00 K/mcL LAB HEMETOLOGY METHOD 03/17/2025 12:45 PM [facility] Eosinophils Absolute 0.07 0.00 - 0.50 K/mcL LAB HEMETOLOGY METHOD 03/17/2025 12:45 PM [facility] Basophils Absolute 0.04 0.00 - 0.20 K/mcL LAB HEMETOLOGY METHOD 03/17/2025 12:45 PM [facility] Immature Granulocytes Absolute 0.03 0.00 - 0.03 K/mcL LAB HEMETOLOGY METHOD 03/17/2025 12:45 PM EDT [facility] Blood Venous blood specimen / Unknown Venipuncture / Unknown 03/17/2025 9:22 AM EDT 03/17/2025 9:22 AM EDT Kiya Balbuena NP LAB BLOOD ORDERABLES Final Resu lt Performing Organization Address City/[facility]/ZIP Co de Phone Number [facility] [address] [place] [address], [place] [phone] * Lipase (03/17/2025 9:22 AM EDT) Lipase 31 13 - 75 unit/L LAB CHEMISTRY METHOD 03/17/2025 4:08 PM EDT [facility] Blood Venous blood specimen / Unknown Venipuncture / Unknown 03/17/2025 9:22 AM EDT 03/17/2025 9:22 AM EDT Kiya Balbuena NP LAB BLOOD ORDERABLES Final Resu lt Performing Organization Address [facility]/ZIP Co de Phone Number [facility] [address] [place] [address], [place] [phone] * Comprehensive metabolic panel (03/17/2025 9:22 AM EDT) Sodium 141 133 - 145 mmol/L LAB CHEMISTRY METHOD 03/17/2025 4:08 PM EDT [facility] Potassium 4.3 3.5 - 5.5 mmol/L LAB CHEMISTRY METHOD 03/17/2025 4:08 PM EDT [facility] Chloride 110 96 - 110 mmol/L LAB CHEMISTRY METHOD 03/17/2025 4:08 PM EDT [facility] CO2 28 21 - 32 mmol/L LAB CHEMISTRY METHOD 03/17/2025 4:08 PM [facility] Anion Gap 3 3 - 11 LAB CHEMISTRY METHOD 03/17/2025 4:08 PM [facility] Glucose 83 70 - 100 mg/dL LAB CHEMISTRY METHOD 03/17/2025 4:08 PM [facility] BUN 11 5 - 25 mg/dL LAB CHEMISTRY METHOD 03/17/2025 4:08 PM [facility] Creatinine 0.86 0.50 - 1.10 mg/dL LAB CHEMISTRY METHOD 03/17/2025 4:08 PM [facility] eGFR 67 >=60 mL/min/1. 73m2 LAB CHEMISTRY METHOD 03/17/2025 4:08 PM [facility] Comment:Calculation based on the Chronic Kidney Disease Epidemiology Collaboration (CKD-EPI) equation refit without adjustment for race. BUN/Creatinine Ratio 12.8 LAB CHEMISTRY METHOD 03/17/2025 4:08 PM [facility] Calcium 9.8 8.5 - 10.5 mg/dL LAB CHEMISTRY METHOD 03/17/2025 4:08 PM [facility] AST (SGOT) 20 10 - 42 unit/L LAB CHEMISTRY METHOD 03/17/2025 4:08 PM [facility] ALT (SGPT) 23 10 - 60 unit/L LAB CHEMISTRY METHOD 03/17/2025 4:08 PM [facility] Alkaline Phosphatase 69 42 - 121 unit/L LAB CHEMISTRY METHOD 03/17/2025 4:08 PM [facility] Total Protein 6.4 6.0 - 8.0 g/dL LAB CHEMISTRY METHOD 03/17/2025 4:08 PM [facility] Albumin 3.6 3.2 - 5.0 g/dL LAB CHEMISTRY METHOD 03/17/2025 4:08 PM [facility] Total Bilirubin 0.3 0.0 - 1.4 mg/dL LAB CHEMISTRY METHOD 03/17/2025 4:08 PM EDT [facility] Blood Venous blood specimen / Unknown Venipuncture / Unknown 03/17/2025 9:22 AM EDT 03/17/2025 9:22 AM EDT us Kiya Balbuena NP LAB BLOOD ORDERABLES Final Resu lt [facility] [address] [place] [address], [place] [phone] * Vascular US duplex carotid bilateral (03/16/2025 [...] Signed Date: 03/16/2025 10:05 ET Workstation ID: [id number] Transcribed By: Self Edit Transcribed Date: 03/16/2025 [...] Signed Date: 03/16/2025 10:05 ET Workstation ID: [id number] Transcribed By: Self Edit Transcribed Date: 03/16/2025 [...] cholecystectomy, as well as pelvic surgery. Code 68288 -------- FINAL REPORT -------- Dictated By: Mason Patricia Dictated Date: 03/10/2025 10:35 ET Assigned Physician: Mason Patricia Reviewed and Electronically Signed By: Mason Patricia Signed Date: 03/10/2025 10:37 ET Workstation ID: [id number] Transcribed By: Self Edit Transcribed Date: 03/10/2025 [...] previouscholecystectomy, as well as pelvic surgery. Code 32798 -------- FINAL REPORT -------- Dictated By: Mason Patricia Dictated Date: 03/10/2025 10:35 ET Assigned Physician: Mason Patricia Reviewed and Electronically Signed By: Mason Patricia Signed Date: 03/10/2025 10:37 ET Workstation ID: [id number] Transcribed By: Self Edit Transcribed Date: 03/10/2025 10:35 ET us Haleigh OVIEDO IMG XR PROCEDURES Final Result * XR Chest 2 Views (03/01/2025 4:01 PM EDT) Anatomical Region Laterality Modality Body Radiographic Cinthya ging 03/01/2025 7:22 PM EDT Impressions 03/01/2025 7:29 PM EDT No evidence of an acute chest process. POS - [id number] -------- FINAL REPORT -------- Dictated By: Claire Melendez Dictated Date: 03/01/2025 19:22 ET Assigned Physician: Claire Melendez Reviewed and Electronically Signed By: Claire Melendez Signed Date: 03/01/2025 19:29 ET Workstation ID: [id number] Transcribed By: Self Edit Transcribed Date: 03/01/2025 [...] of an acute chest process. POS - [id number] -------- FINAL REPORT -------- Dictated By: Claire Melendez Dictated Date: 03/01/2025 19:22 ET Assigned Physician: Claire Melendez Reviewed and Electronically Signed By: Claire Melendez Signed Date: 03/01/2025 19:29 ET Workstation ID: [id number] Transcribed By: Self Edit Transcribed Date: 03/01/2025 19:22 ET Kiya Balbuena ZULEMA IMG XR PROCEDURES Final Result * XR Hip 4+ Views Right (03/01/2025 4:00 PM EDT) Anatomical Region Laterality Modality Lower Extremities, Hip Right Radiograp hic Imaging 03/01/2025 8:34 PM EDT Impressions 03/01/2025 8:37 PM EDT Mild degenerative changes involving the right hip. Also, findings of right calcific trochanteric bursitis/tendinopathy. POS - [id number] -------- FINAL REPORT -------- Dictated By: Claire Melendez Dictated Date: 03/01/2025 20:34 ET Assigned Physician: Claire Melendez Reviewed and Electronically Signed By: Claire Melendez Signed Date: 03/01/2025 20:37 ET Workstation ID: [id number] Transcribed By: Self Edit Transcribed Date: 03/01/2025 [...] findings of rightcalcific trochanteric bursitis/tendinopathy. POS - [id number] -------- FINAL REPORT -------- Dictated By: Claire Melendez Dictated Date: 03/01/2025 20:34 ET Assigned Physician: Claire Melendez Reviewed and Electronically Signed By: Claire Melendez Signed Date: 03/01/2025 20:37 ET Workstation ID: [id number] Transcribed By: Self Edit Transcribed Date: 03/01/2025 20:34 ET Kiya Balbuena NP IMG XR PROCEDURES Final Result * Lipid panel with reflex to direct LDL (12/04/2024 10:35 AM EDT) Cholesterol 132 0 - 200 mg/dL LAB CHEMISTRY METHOD 12/04/2024 2:25 PM [facility] Triglycerides 111 0 - 150 mg/dL LAB CHEMISTRY METHOD 12/04/2024 2:25 PM [facility] HDL 67 >=40 mg/dL LAB CHEMISTRY METHOD 12/04/2024 2:25 PM [facility] LDL Calculated 43 0 - 100 mg/dL LAB CHEMISTRY METHOD 12/04/2024 2:25 PM [facility] VLDL Cholesterol Theo 22.2 mg/dL LAB CHEMISTRY METHOD 12/04/2024 2:25 PM [facility] Non HDL Chol. (LDL+VLDL) 65 <145 mg/dL LAB CHEMISTRY METHOD 12/04/2024 2:25 PM [facility] Chol/HDL Ratio 2.0 0.0 - 4.4 LAB CHEMISTRY METHOD 12/04/2024 2:25 PM [facility] Blood Venous blood specimen / Unknown Venipuncture / Unknown 12/04/2024 10:35 AM EDT 12/04/2024 10:35 AM EDT us Kiya Balbuena NP LAB BLOOD ORDERABLES Final Resu lt [facility] [address] [place] [address], * DXA BONE DENSITY STUDY 1+ SITS [...] (World Health Organization Fracture Risk Assessment) [facility] Department of Internal Medicine recommends using [...] screening schedule based on will Schaefer., BANNER September 13, 2011 for patients with osteopenia [...] years. (World HealthOrganization Fracture Risk Assessment) [facility] Department of Internal Medicine recommendsusing National [...] -1.50 and higher), BMD testingevery 15 years us Darius Montoya NP IM DXA PROCEDURES Final Resul t from Last 3 Months or Most Recently Relevant to Health Maintenance Insurance [employer] MEDICAID - [place] Care Teams Ophthalmic Medical Assistant Relationship Specialty Start Date End Date Feroz Reyes MD [address] [place] [id number] PCP - General Internal Medicine 09/29/20
== END 2025-05-20 09:55 | disposition home or self-care (01) ==
LOC: HO.HSM 09:04
PROVIDERS: PCP Internal Medicine; Visit Provider Registered Nurse
DX: H93.13 Tinnitus, bilateral (principal); M54.2 Cervicalgia; M54.9 Dorsalgia, unspecified; G89.29 Other chronic pain
CPT/HCPCS: 99214

== ENCOUNTER → 2025-05-20 09:03 | Outpatient (BNVA) | payer OTHER, SELFPAY | PROVIDERS: PCP Internal Medicine; Visit Provider Registered Nurse | DX: M54.2 Cervicalgia (principal); H93.13 Tinnitus, bilateral; M54.9 Dorsalgia, unspecified; G89.29 Other chronic pain | CPT/HCPCS: 99212 ==

== ENCOUNTER → 2025-06-20 11:02 | Outpatient (BNV) | payer OTHER, SELFPAY | PROVIDERS: PCP Internal Medicine; Visit Provider Radiology Diagnostic Radiology | DX: R90.82 White matter disease, unspecified (principal) | CPT/HCPCS: 70551 ==

== ENCOUNTER 2025-06-20 11:10 | Outpatient (REF) | payer OTHER, SELFPAY ==
--- NOTE | ~2025-06-20 | MR_ITS ---
EXAMINATION: MR BRAIN WITHOUT CONTRAST CLINICAL INFORMATION: H 93.13. Tinnitus. COMPARISON: None available. TECHNIQUE: MRI of the brain was obtained using routine sequences without contrast. Axial T2 3-D space and MPR coronal at the IAC. FINDINGS: No restricted diffusion. No acute intracranial hemorrhage, mass effect, midline shift, hydrocephalus or herniation. Bilateral multifocal patchy and punctate subcortical and deep periventricular white matter hyperintense T2 FLAIR signal involving centrum semiovale and chow radiata as well as basal ganglia, and brain stem mostly dionne. Flow-void signal within the main cerebral vessels is normal. Normal position of the internal jugular bulb. Anterior inferior cerebellar arteries are type I, bilaterally. No soft tissue signal abnormality within the ocular vestibular components of the 8th cranial nerves. No gross signal abnormality within the cerebellopontine angle cisterns or at the porus acusticus. Craniocervical junction demonstrates normal position of the cerebellar tonsils. Sellar/suprasellar region demonstrates no signal abnormality or gross masses. Prominence of the extra-axial CSF spaces cerebral sulci and ventricles likely central volume loss and age-related.. MR/MR head/brain wo con IMPRESSION: No acute stroke/nonhemorrhagic ischemia. White matter disease likely related to small vessel occlusive disease. No gross masses in the cerebellopontine angle cisterns for the 8th cranial nerves. No gross vascular abnormalities in the posterior cranial fossa.. Electronically signed by: Alex Smith MD 06/21/2025 08:04 AM EDT
--- OUTSIDE RECORDS SUMMARY | 2025-06-20 11:12 | XMS_ITS | Clinical Summary ---
Author Organization [facility] Address [address] [place] [address] Care Team Providers Care Sand Miller Name Role Phone Feroz Reyes MD Primary Care Provider [phone] Social History Tobacco Use Types Packs/Day Years [...] age to complete this topic Care Teams Sand Miller Relationship Specialty Start Date End Date Feroz Reyes MD PCP - General Internal Medicine 11/08/20
== END 2025-06-20 11:11 | disposition home or self-care (01) ==
LOC: HO.MRI 11:10
PROVIDERS: PCP Internal Medicine; Visit Provider Registered Nurse
DX: H93.13 Tinnitus, bilateral (principal)
CPT/HCPCS: 70551

== ENCOUNTER 2025-07-12 08:29 | Outpatient (AMB) | payer MEDICAID, SELFPAY ==
--- NOTE | 2025-07-12 09:02 | MHC.OFFVIS ---
Intake Visit Reasons: Kidney Cysts Intake Note: New patient presents today for initial visit for Urology Medication:Vitamin B12, Potassium Blood Thinner:None Antibiotic Allergies:None Allergies latex Allergy (Severe, Verified 07/12/25 09:03) Rash Latex Gloves Allergy (Severe, Uncoded 05/20/25 09:26) rash Anjali spice Allergy (Severe, Uncoded 05/20/25 09:26) Rash HPI Comments Details: 07/12/2025 Prema is an 84-year-old female who was seen previously in our office by Dr. Castellon, August of 2022. History of Present Illness The patient is an 84-year-old female presenting with the evaluation of renal cysts and associated symptoms. The patient has a history of bilateral renal cysts, initially identified in a CT scan on January 01, 2025, which showed no suspicious renal mass. A subsequent CT scan on April 05, 2025, revealed bilateral hemorrhagic cysts, indicating possible bleeding within the cysts. The patient reports no significant symptoms such as burning during urination, and there are no suspicious lesions noted in the kidneys. Results - CT scan (January 01, 2025): Bilateral renal cysts, no suspicious renal mass - CT scan (April 05, 2025): Bilateral hemorrhagic cysts Plan 1. Bilateral Renal Cysts - Plan to monitor with an ultrasound in six months to assess any changes in the cysts. - Follow-up with a nurse practitioner via telehealth to review ultrasound results. 08/2022--Prema Carpenter is a very pleasant female. They are a patient of Dr Donovan. They are seen in the office today for the following urologic conditions. - hydronephrosis review Imaging shows solution CT scan stable Has been getting up at night urinary Does have mild pitting edema bilateral Discussed lifting feet in afternoon May follow p.r.n. Hydronephrosis/Hydroureter:? Yearly review. Imaging with multiple bilateral renal cysts seen during evaluation for GI related issues ?- US no stones - multiple bilateral cyst ?- follow next year - if stable can follow with PCP. ? Hydronephrosis was diagnosed?during ER visit ?- 09/11 at [facility] [place] mild right hydro in setting of perforated diverticulitis ?- [place] [facility] of [place].? Relevant past medical history? Nephrolithiasis ?Yes ? Urinary tract infections ?No ? Ureteropelvic Junction obstruction ?No ? Anatomic imaging findings include?CT with 01/09 right mild hydronephrosis and distal stone ?06/11 US Normal - cysts on right ?01/10 , US with bilateral cyst ?12/12 , US with bilateral cysts, small stones on right - 06/15 CT scan multiple bilateral renal cysts ? Discussion?PRN PFSH Medical History Chronic neck and back pain Hx of flexible sigmoidoscopy (~2016) Hx of diverticulitis of colon Hyperlipidemia Paresthesia Dark stools Pulmonary embolism Chest discomfort Abnormal EKG PAC (premature atrial contraction) Renal cyst Gastritis DVT (deep venous thrombosis) (~2016) Anemia HTN (hypertension) GERD (gastroesophageal reflux disease) Surgical History Hx of colonoscopy History of esophagogastroduodenoscopy (EGD) History of laparoscopic cholecystectomy History of colon resection (~2016) Family History Father No problems noted. Mother No problems noted. Social History Household Members: Children Housing: House Are you a primary transitional care nurse to a significant other at home: No Do you presently have visiting nurse or other home services: No Alcohol intake: never Patient Tobacco Use Status: Never used Tobacco Advance Directives Date on File: 10/21/23 service: No Current occupational status: retired Results AMB Urinalysis, Automated UA Leukoctes 0 Tc/uL Last Edit by Zoila Alfonso on 07/12/25 12:17 UA Nitrite Negative Last Edit by Zoila Alfonso on 07/12/25 12:17 UA Urobilinogen 0.2 mg/dL Last Edit by Zoila Alfonso on 07/12/25 12:17 UA Protein 0 mg/dL Last Edit by Zoila Alfonso on 07/12/25 12:17 UA pH 5.0 Last Edit by Zoila Alfonso on 07/12/25 12:17 UA Blood 10 [place]/uL Last Edit by Zoila Alfonso on 07/12/25 12:17 UA Specific [place] 1.020 Last Edit by Zoila Alfonso on 07/12/25 12:17 UA Ketone Negative Last Edit by Zoila Alfonso on 07/12/25 12:17 UA Bilirubin 0 mg/dL Last Edit by Zoila Alfonso on 07/12/25 12:17 UA Glucose 0 mg/dL Last Edit by Zoila Alfonso on 07/12/25 12:17 Results Reviewed Results Reviewed: Date of Service: 04/05/25 Procedure(s): CT abdomen pelvis wo IV con Accession Number(s): [id number] cc: Physician,Unknown ; James Duran MD~ Report Number: [id number]: Total DLP = 378.00 mGy-cm CLINICAL HISTORY: Lower abdominal pain? Diverticulitis CT abdomen and pelvis without contrast Comparison: CT/SR - CT ABDOMEN PELVIS W IV CON - 01/01/25 22:56 EDT Findings: Atelectasis. Cardiomegaly without significant pericardial effusion. Coronary artery calcifications. Bilateral hypodense, intermediate dense and possible tiny hemorrhagic renal cysts, better evaluated on prior exam. If clinical concern persists consider follow-up MRI. No significant hydronephrosis. No urolithiasis. Colonic diverticulosis with subtle peridiverticular stranding series 7, image 27 for example of the sigmoid diverticulitis. No evidence of complication. Of note, finding is in similar distribution to prior. No bowel obstruction. Evidence of prior bowel resection with a midline anastomosis in the pelvis. Post hysterectomy. Osteopenia with diffuse multilevel spondylosis. Grade 1 anterolisthesis at L5-S1. Tarlov cysts. Diffuse atheromatous plaque disease throughout the aorta and branch vessels, without aneurysmal dilatation. Postcholecystectomy. IMPRESSION: Possible, uncomplicated early sigmoid diverticulitis. Assessment & Plan Assessment & Plan Orders: Orders AMB Urinalysis Automated Today N28.1 - Cyst of kidney, acquired Coding
== END 2025-07-12 09:43 | disposition home or self-care (01) ==
LOC: HO.HUSH 08:29
PROVIDERS: PCP Internal Medicine; Visit Provider Urology
DX: N28.1 Cyst of kidney, acquired (principal)

== ENCOUNTER → 2025-07-12 08:29 | Outpatient (BNVA) | payer OTHER, SELFPAY | PROVIDERS: PCP Internal Medicine; Visit Provider Urology | DX: N28.1 Cyst of kidney, acquired (principal) | CPT/HCPCS: 81003 ==

== ENCOUNTER 2025-07-29 10:13 | Outpatient (AMB) | payer OTHER, MEDICAID, SELFPAY ==
--- OUTSIDE RECORDS SUMMARY | 2025-07-27 09:30 | XMS_ITS | Encounter Summary ---
Author Organization [facility] Address [address] [place] [address] Care Team Providers Care Production Assembly Operator Name Role Phone Feroz Reyes MD Primary Care Provider [phone] Reason for Visit * Reason Comments Follow-up meds Encounter Details Date Type Department Care Team (Late st Contact Info) Description 07/27/2025 9:30 AM EST Office Visit Internal Medicine - [address] [phone] Feroz Reyes MD [address] [place] [id number] Hypercholesterolemia (Primary Dx); Essential hypertension; Allergic rhinitis, unspecified seasonality, unspecified trigger Social History Tobacco Use Types Packs/Day Years [...] Date Recorded What is your living situation? Unrecognized valu e 04/06/2025 Comments No Sex and Gender Information Value Date Recorded Sex Assigned at Not on file Legal Sex Female 9:11 PM EST Gender Identity Not on file Sexual Orientation Not on file documented as of this encounter Last Filed Vital Signs Vital Sign Reading Time Taken Comments Blood Pressure 116/50 07/27/2025 9:46 AM EST Pulse 50 07/27/2025 9:46 AM EST Temperature - - Respiratory Rate - - Oxygen Saturation - - Inhaled Oxygen Concentration - - Weight 51.7 kg (114 lb) 07/27/2025 9:46 AM EST Height 144.8 cm (4' 9 ) 07/27/2025 9:46 AM EST Body Mass Index 24.67 07/27/2025 9:46 AM EST documented in this encounter Progress Notes * Feroz Reyes MD - 07/27/2025 9:30 AM EST CHIEF COMPLAINT: Chief Complaint Patient presents with Follow-up meds IDENTIFIER: Prema Carpenter. 84 y.o.. HPI: History of Present Illness The patient is an 84-year-old female who presents for evaluation of allergies hypertension hyperlipidemia. She reports experiencing sneezing, coughing, and gagging upon entering her apartment, which she attributes to the presence of rugs that have been in place since the building's construction. She suspects these symptoms may be due to mold exposure. She has been provided with forms to complete prior to the removal of the rugs. She has not previously consulted an qa architect. PAST MEDICAL HISTORY: Medical History[1] PAST SURGICAL HX: Surgical History[2] SOCIAL HISTORY: FAMILY HISTORY: Family History[3] MEDICATIONS DISCONTINUED/REORDERED: There are no discontinued medications. ACTIVE MEDICATIONS: Medications Ordered Prior to Encounter[4] ALLERGIES: Current Allergies[5] ROS: Constitutional: no weakness fever/ sweats, or weight change Eyes: no blurred vision,pain or discharge ENT: no mouth pain,oral bleeding, congestion or discharge Respiratory: no shortness of breath, cough or wheezing Cardiovascular:no chest pain or palpitations, no orthopnea or PND GI: no nausea, vomiting or diarrhea; no rectal bleeding or dark stools : no dysuria or frequency; no nocturia or hesitancy PHYSICAL EXAM: Vitals: 07/27/25 0946 BP: 116/50 Pulse: 50 BMI PLAN BMI Body mass index is 24.67 kg/m??. General: the patient is in no acute distress.A & Ox 3 Head/Neck neck supple Lungs: clear to percussion and auscultation. Heart: regular rhythm Abdominal exam; positive bowel sounds; soft, . Extremities: no cyanosis, clubbing or edema. LABS: ordered IMPRESSION: Encounter Diagnoses Name Primary? Hypercholesterolemia Yes Essential hypertension Allergic rhinitis, unspecified seasonality, unspecified trigger PLAN: Assessment & Plan 1. Allergies: Chronic. - Sneezing, coughing, and gagging when entering the apartment, potentially due to mold in the rugs. - Complete and submit the necessary paperwork for rug removal to the front maker lockstitch. - Continue Claritin patient declines referral to allergy 2. Hypertension - Blood pressure is well-controlled at 116/50. Recent blood work shows normal liver and kidney function, blood counts, Cholesterol levels were normal 7 months ago. - Provide a printout of recent blood work results. - Continue current regimen and maintain health practices. 3.) Hyperlipidemia stable continue Crestor 40 mg low-cholesterol diet I have maintained a long-term, longitudinal relationship with this patient, overseeing care of chronic conditions including hypertension hyperlipidemia allergic rhinitis. This care relationship has significantly influenced my decision making and treatment plans during today's encounter. Follow-up - Drop off paperwork at the front maker lockstitch. No orders of the defined types were placed in this encounter. Additional Orders: None I have obtained verbal consent from Prema Carpenter prior to the recording. I have advised Prema Carpenter that she may refuse the recording and require the recording to be turned off at any time during this encounter. Feroz Reyes MD [1] Past Medical History: Diagnosis Date Adrenal adenoma, right 12/07/2020 DX:Adrenal adenoma, right Anemia 12/26/2020 DX:Anemia Arthritis R hip Bartholin's cyst 11/2021 DX:Bartholin's cyst Bilateral renal cysts 12/15/2020 DX:Bilateral renal cysts Bronchitis Cervical radiculopathy 10/31/2020 DX:Cervical radiculopathy Essential hypertension 10/31/2020 DX:Essential hypertension Gastroesophageal reflux disease 10/31/2020 DX:Gastroesophageal reflux disease High blood pressure History of diverticulitis 12/26/2020 DX:History of diverticulitis History of DVT (deep vein thrombosis) 12/26/2020 DX:History of DVT (deep vein thrombosis) Hypercholesterolemia 12/26/2020 DX:Hypercholesterolemia Nephrolithiasis 12/26/2020 DX:Nephrolithiasis [2] Past Surgical History: Procedure Laterality Date BREAST BIOPSY Right PROCEDURE: BX BREAST; PERC NEEDLE CORE W/IMAG GUID; COMMENT: fna-many yrs ago CARDIAC CATHETERIZATION PROCEDURE: HISTORICAL CARDIAC CATH CATARACT EXTRACTION, BILATERAL Bilateral CHOLECYSTECTOMY PROCEDURE: HISTORICAL CHOLECYSTECTOMY; COMMENT: laparoscopic 04/12/2019 CHOLECYSTECTOMY PROCEDURE: MA LAPAROSCOPY SURG CHOLECYSTECTOMY COLONOSCOPY PROCEDURE: HISTORICAL COLONOSCOPY HYSTERECTOMY 1979 PROCEDURE: HISTORICAL HYSTERECTOMY OTHER SURGICAL HISTORY PROCEDURE: HISTORICAL COLOSTOMY; COMMENT: khalida colostomy 02/2016 [3] Family History Problem Relation Name Age of Onset Dementia Mother Cancer Father unknown type Hypertension Sister Layla Hypertension Sister zak Other (Other: Other) Sister zak unsure of all medical problems Hypertension Sister Selam Arthritis Sister Katherine Multiple sclerosis Sister Katherine Hypertension Sister Glenys No Known Problems Brother Thyroid disease Daughter Hypertension Daughter Thyroid disease Son Lul Other (Other: Other) Son Lul Kidney issues Hypertension Son Lul Hypertension Son angelica Arthritis Son Quentin arthritis in back Hypertension Son Quentin Other (Other: Other) Son Feroz Hepatitis No Known Problems Son Vicente [4] Current Outpatient Medications on File Prior to Visit Medication Sig Dispense Refill amLODIPine (NORVASC) 5 mg tablet TAKE 1 TABLET BY MOUTH DAILY 90 tablet 1 calcium carbonate (CALCIUM 500 ORAL) CALCIUM 500-2.5 MG-MCG CHEW TAB: Take by mouth daily. calcium carbonate EX (Antacid Extra-Strength) 300 mg (750 mg) chewable tablet Take 1 Tablet by mouth daily. CHOLECALCIFEROL, VITAMIN D3, ORAL Take 1,000 mg by mouth. cholestyramine (QUESTRAN) 4 gram powder clonazePAM (KlonoPIN) 0.5 mg tablet Take 1 tablet (0.5 mg total) by mouth 2 (two) times a day. cyanocobalamin (VIT B-12) 1,000 mcg tablet extended release ER tablet Take by mouth daily. diclofenac (VOLTAREN) 1 % topical gel Apply topically 2 times daily. fluticasone propionate (FLONASE) 50 mcg/actuation nasal spray Administer 2 sprays into each nostril1 (one) time each day. Shake gently. Before first use, prime pump. After use, clean tip and replacecap. 16 g 5 gabapentin (NEURONTIN) 100 mg capsule Take 1 capsule (100 mg total) by mouth at bedtime. (In addition to a 300 mg capsule at night) 90 capsule 1 gabapentin (NEURONTIN) 300 mg capsule TAKE 1 CAPSULE BY MOUTH TWICE DAILY (in addition to 100 MG capsule at night) 180 capsule 1 lidocaine (LIDODERM) 5 % patch APPLY 1 PATCH TOPICALLY TO THE SKIN 1 TIME EACH DAY 30 patch 0 loperamide (IMODIUM) 2 mg capsule Take 1 capsule (2 mg total) by mouth if needed. loratadine (CLARITIN) 10 mg tablet Take 1 tablet (10 mg total) by mouth 1 (one) time each day. 90 tablet 1 metoprolol succinate (TOPROL-XL) 25 mg 24 hr tablet 1 Tablet daily. odvvhuwr-rzrsyutir-purgcbczivkavlnwqu (POLYDEX) 3.5 mg/g-10,000 unit/g-0.1 % ointment netarsudiL (Rhopressa) 0.02 % drops nitroglycerin (NITROSTAT) 0.[address] 1 tablet (0.4 mg total) under the tongue every 5 (five) minutes if needed for chest pain. 90 tablet 0 potassium chloride (KLOR-CON) 10 mEq CR tablet TAKE 1 TABLET BY MOUTH TWICE DAILY 180 tablet 1 prednisoLONE acetate (PRED FORTE) 1 % ophthalmic suspension Administer 1 drop into both eyes 2 (two) times a day. rosuvastatin (CRESTOR) 40 mg tablet TAKE 1 TABLET(40 MG) BY MOUTH 1 TIME EACH DAY 90 tablet 1 [DISCONTINUED] amoxicillin-clavulanate (AUGMENTIN) 875-125 mg per tablet Take 1 tablet by mouth 2 (two) times a day for 10 days. 20 each 0 [DISCONTINUED] ondansetron ODT (ZOFRAN-ODT) 4 mg disintegrating tablet (Patient not taking: Reported on 07/13/2025) No current facility-administered medications on file prior to visit. [5] Allergies Allergen Reactions Latex Itching and Hives Anjali Oil Itching documented in this encounter Plan of Treatment Upcoming Encounters Date Type Department Care Team (Late st Contact Info) Description 03/31/2026 10:30 AM EDT Appointment [facility] Ultrasound [address] [place] [address] 04/06/2026 10:30 AM EDT Office Visit Vascular Surgery - [place] [address] [place] [address] Karol Schafer MD [address] [place] [phone] documented as of this encounter Visit Diagnoses Diagnosis Hypercholesterolemia- Primary Pure hypercholesterolemia Essential hypertension Unspecified essential hypertension Allergic rhinitis, unspecified seasonality, unspecified trigger documented in this encounter Discontinued Medications Medication Sig Discontinue Reason Start Date End Da te ondansetron ODT (ZOFRAN-ODT) 4 mg disintegrating tablet Therapy completed 04/05/2025 07/27/20 25 amoxicillin-clavulanate (AUGMENTIN) 875-125 mg per tabletIndications:Sinus pressure Take 1 tablet by mouth 2 (two) times a day for 10 days. Therapy completed 07/13/2025 07/27/2025 documented as of this encounter Additional Health Concerns Assessment Noted Time PHQ-9 Depression Total Score: 0 07/27/20 25 9:48 AM EST documented as of this encounter Care Teams Production Assembly Operator Relationship Specialty Start Date End Date Feroz Reyes MD [address] [place] [address] PCP - General Internal Medicine 09/29/20 documented as of this encounter
--- NOTE | 2025-07-29 10:20 | A.OFFVIS_ITS ---
Intake Visit Reasons: Tinnitus Allergies latex Allergy (Severe, Verified 07/29/25 10:29) Rash Latex Gloves Allergy (Severe, Uncoded 07/29/25 10:29) rash Anjali spice Allergy (Severe, Uncoded 07/29/25 10:29) Rash Medication List - Last Reconciled 07/29/25 by Neda Bright CNP acetaminophen ER 650 mg PO Q8H PRN amlodipine 5 mg See Protocol PO DAILY calcium carbonate (Antacid (calcium carbonate)) 500 mg PO TID cholecalciferol (vitamin D3) 25 mcg PO DAILY cholestyramine (with sugar) 4 gram 2 grams PO DAILY clonazepam 0.5 mg PO BEDTIME 30 days cyanocobalamin (vitamin B-12) (Vitamin B-12) 1,000 mcg PO DAILY diclofenac sodium 1% 2 grams topical BID fluticasone propionate 50 mcg/actuation sprays intranasal gabapentin 300 mg PO BID gabapentin 100 mg PO BEDTIME lidocaine 5% 1 patch topical DAILY loperamide 2 mg PO Q4H PRN loratadine 10 mg PO BEDTIME metoprolol succinate ER 25 mg PO DAILY netarsudil 0.02% (Rhopressa) drps ophthalmic (eye) nitroglycerin 0.4 mg sublingual DIRECTED potassium chloride ER (Klor-Con M) 10 mEq PO BID prednisolone acetate 1% drps ophthalmic (eye) rosuvastatin 40 mg PO DAILY HPI Comments Details: She was doing okay. No further falls. Completed PT. Chronic LBP with occasional radiation down left leg and some intermittent numbness/tingling. Epidural injections help. Tinnitus in both ears when standing only once in a while now and not like it was before. It was mostly when laying back like before. She was taking clonazepam at bedtime which helped some, no medication side effects. Occasional dizziness and headaches. Sleep was up and down, getting about 5 hours. She had two falls between 10/2024-04/2025, the first was in 11/2024 when a heavy fireproof door closed on her, causing her to fall and hit her head. She went to the ER the following day primarily for GI symptoms, but reported the fall and had CT head/neck. She was unsure when second fall was, possibly in 12/2024 or 02/2025 when she slipped on tile in kitchen and hit head on door when she fell. No LOC, but was slightly dizzy upon standing. She did not go to hospital. Tinnitus in both ears has slightly worsened after fall. It was happening when sitting and standing, as well as laying down. Previously, it only happened when laying flat and improved when head was elevated. Hearing was about the same. She apparently had hearing test and was told she may need hearing aids. In the past, tinnitus had gotten a bit better, but was still there when laying down flat. It was only happening flat and improved when lying when head elevated. No tinnitus when sitting or standing. Tinnitus louder after falling and hitting R occipital area of head on 05/06/2023.?She developed steady humming in her head on lying down, it gets quite loud and interferes with sleep. If she sits up, it goes away. It is not pulsatile. It is not related to neck position or movement. No dizziness. Was seen at [facility] 09/2023 for 2-3 weeks of L sided weakness and numbness/tingling. [facility] Medical History Chronic neck and back pain Hx of flexible sigmoidoscopy (~2016) Hx of diverticulitis of colon Hyperlipidemia Paresthesia Dark stools Pulmonary embolism Chest discomfort Abnormal EKG PAC (premature atrial contraction) Renal cyst Gastritis DVT (deep venous thrombosis) (~2017) Anemia HTN (hypertension) GERD (gastroesophageal reflux disease) Surgical History Hx of colonoscopy History of esophagogastroduodenoscopy (EGD) History of laparoscopic cholecystectomy History of colon resection (~2017) Family History Father No problems noted. Mother No problems noted. Social History Household Members: Children Housing: House Are you a primary rehab care assistant to a significant other at home: No Do you presently have visiting nurse or other home services: No Alcohol intake: never Patient Tobacco Use Status: Never used Tobacco Advance Directives Date on File: 10/21/23 service: No Current occupational status: retired Review of Systems Const Denies chills, Denies daytime sleepiness, Denies difficulty sleeping, Denies fatigue, Denies fever(s), Denies frequent falls, Reports headache(s), Denies inc reased appetite, Denies poor appetite, Denies snoring, Denies weakness, Denies weight gain and Denies weight loss Eyes Denies loss of vision ENT Denies vertigo, Denies dizziness, Reports headache(s), Reports neck pain and Reports tinnitus Card Denies chest pain at rest, Denies chest pain with activity, Denies syncope, Denies leg edema, Denies palpitations, Denies dyspnea and Denies dyspnea on exertion Resp Denies cough, Denies dyspnea, Denies dyspnea on exertion and Denies snoring GI Denies abdominal pain, Denies constipation, Denies heartburn, Denies diarrhea and Denies nausea Denies urinary frequency, Denies urinary incontinence and Denies urinary urgency Musc Denies abnormal gait, Reports back pain, Reports myalgias, Denies arthralgias, Reports neck pain, Denies numbness and Denies tingling Neuro Denies abnormal gait, Denies vertigo, Denies dizziness, Denies syncope, Denies frequent falls, Reports headache(s), Denies lack of coordination, Denies loss of vision, Denies memory loss, Denies numbness, Denies Other visual disturbances, Denies restless legs, Denies seizure-like activity, Denies tingling, Denies paresthesias, Denies tremor(s) and Denies weakness Psych Reports anxiety, Denies depression, Denies auditory hallucinations, Denies memory loss and Denies visual hallucinations Endo Denies fatigue and Denies palpitations Physical Exam Const Other: General Appearance:? normal, in no acute distress. Heart:? S1, S2 normal, no murmurs. Lungs:? clear anteriorly and posteriorly. Musculoskeletal:? normal. Extremities:? no edema. Psych:? alert, oriented, cognitive function intact, cooperative with exam. Neuro Other: Abnormal Neurological Findings:?Generalized weakness LLE 5-/5. Walking with walker. Mental Status: alert and oriented X 3. Normal attention, orientation, memory, and affect. Cranial Nerves: Pupils are equal, round, and reactive to light. External ocular muscles are intact. Visual trujillo are full, no ptosis. Face is symmetrical, no facial weakness or droop. Facial sensations are normal. Tongue protrudes in midline. Palate elevates symmetrically. Shoulder shrugging is normal Motor Examination: As above, otherwise normal muscle tone, bulk and strength. No atrophy or fasciculations. No drift of the extended upper extremities. DTR 2+. Plantars are flexor. Sensory Exam: Normal light touch, temperature, pinprick, vibration, and joint- position sensations. Rhomberg sign is absent. Coordination: No ataxia. No titubation. Gait Exam: With walker. Cerebellar Signs: Sgfrpo-me-xccj is okay. Extrapyramidal System: No tremor, rigidity with normal facial expressions. No bradykinesia. No bradyphrenia. Normal arm swing and posture. No propulsion or retropulsion. Speech: Normal. Results Reviewed Results Reviewed: [address] [address] Magnetic Resonance Report Signed Patient: Prema Carpenter MR#: [id number] : 1940 Acct:[id number] Age/Sex: 84 / F ADM Date: 06/20/25 Loc: HO.MRI Attending Dr: Neda Bright CNP Ordering Physician: Neda Bright CNP Date of Service: 06/20/25 Procedure(s): MR head/brain wo con Accession Number(s): [id number] cc: Neda Bright CNP; THEO KHAN MD~ Reason for Exam: H93.13 - Tinnitus, bilateral EXAMINATION: MR BRAIN WITHOUT CONTRAST CLINICAL INFORMATION: H 93.13. Tinnitus. COMPARISON: None available. TECHNIQUE: MRI of the brain was obtained using routine sequences without contrast. Axial T2 3-D space and MPR coronal at the IAC. FINDINGS: No restricted diffusion. No acute intracranial hemorrhage, mass effect, midline shift, hydrocephalus or herniation. Bilateral multifocal patchy and punctate subcortical and deep periventricular white matter hyperintense T2 FLAIR signal involving centrum semiovale and chow radiata as well as basal ganglia, and brain stem mostly dionne. Flow-void signal within the main cerebral vessels is normal. Normal position of the internal jugular bulb. Anterior inferior cerebellar arteries are type I, bilaterally. No soft tissue signal abnormality within the ocular vestibular components of the 8th cranial nerves. No gross signal abnormality within the cerebellopontine angle cisterns or at the porus acusticus. Craniocervical junction demonstrates normal position of the cerebellar tonsils. Sellar/suprasellar region demonstrates no signal abnormality or gross masses. Prominence of the extra-axial CSF spaces cerebral sulci and ventricles likely central volume loss and age-related.. MR/MR head/brain wo con IMPRESSION: No acute stroke/nonhemorrhagic ischemia. White matter disease likely related to small vessel occlusive disease. No gross masses in the cerebellopontine angle cisterns for the 8th cranial nerves. No gross vascular abnormalities in the posterior cranial fossa.. Electronically signed by: Alex Smith MD 06/21/2025 08:04 AM EDT RP Dictated By: Alex Sethi MD Signed By: <Electronically signed by Alex Shannon MD in OV> 06/21/25 0804 -- CT Head at [facility] 11/25/2024: No acute intracranial findings. CT C-spine at [facility] 11/25/2024: Multilevel degenerative changes especially from C4-5 to C6-7. Facet arthropathy. C3-4 mild disc bulge. C4-5 small central disc herniation with calcification and mild canal stenosis. Mild spondylotic disc bulges C5-6 and C6-7. MRI brain at [facility] 09/2023: Negative CTA at [facility] 09/2023: No significant stenosis Assessment & Plan Assessment & Plan (1) Bilateral tinnitus: Code(s): H93.13 - Tinnitus, bilateral Category: Medical Plan: MRI results reviewed. Continue clonazepam 0.5mg 1 tablet at bedtime. (2) Chronic neck and back pain: Code(s): M54.2 - Cervicalgia; M54.9 - Dorsalgia, unspecified; G89.29 - Other chronic pain Category: Medical (3) Cerebral microvascular disease: Code(s): I67.89 - Other cerebrovascular disease Category: Medical Plan: Control blood pressure, continue statin. Plan . Coding Level of Care Code Est Pt Level 4 (00186) Diagnoses Bilateral tinnitus H93.13 Chronic neck and back pain M54.2; M54.9; G89.29 Cerebral microvascular disease I67.89
--- OUTSIDE RECORDS SUMMARY | 2025-07-29 12:17 | XMS_ITS | Encounter Summary ---
Author Organization [facility] Prior to 06/26/2024 Address [address] [place] [address] Care Team Providers Care Special Equipment Technician Name Role Phone Feroz Reyes MD Primary Care Provider [phone] Artemio Blunt MD Unavailable Unavailable Cornell Castellon MD Unavailable UnavailTamy Gonzales Unavailable Unavailable Oscar Valiente MD Unavailable Unavailable Bi Frank MD Unavailable Unavailable Encounter Details Date Type Department Care Team Description 06/18/2023 Car Installations Supervisor Report Medical Records [address] [place] [id number] Dennis Topete PA-C Social History Tobacco Use Types Packs/Day [...] week 03/14/2022 How often do you attend [facility] or lutheran services? Never 03/14/2022 Do you belong to any clubs o r organizations such as episcopalian groups, unions, fraternal or athletic groups, or [...] on filedocumented in this encounter Care Teams Special Equipment Technician Relationship Specialty Start Date End Date Feroz Reyes MD [address] [place] [address] PCP - General Internal Medicine 09/29/20 Artemio Blunt MD [address] [place] [phone] Specialist Gastroenterology 03/14/22 Cornell Castellon MD [address] [place] [address] Specialist Urology 03/14/22 Tamy Chandler FNP [address] [place] [id number] Nurse Practitioner Cardiology 03/14/22 Oscar Valiente MD [address] [place] [phone] Specialist Cardiology 03/14/22 Bi Frank MD [address] [place] [address] Specialist Ophthalmology 03/14/22 documented as of this encounter
--- OUTSIDE RECORDS SUMMARY | 2025-07-29 12:17 | XMS_ITS | Clinical Summary ---
Author Organization [facility] Prior to 06/26/2024 Address [address] [place] [address] Care Team Providers Care Mental Health Nurse Name Role Phone Feroz Reyes MD Primary Care Provider [phone] Artemio Blunt MD Unavailable Unavailable Cornell Castellon [...] often do you attend chur ch or mormon services? Never 03/14/2022 Do you belong to any clubs o r organizations such as temple groups, unions, fraternal or athletic groups, or [...] place to sleep or slept in a correction (including now)? No 03/14/2022 Sex Assigned at Date Recorded Not on file Job Start Date Occupation Industry Not on file Not on file Not on file Last Filed Vital Signs Vital Sign Reading Time Taken Comments Blood Pressure 130/77 05/18/2024 10:28 AM EDT au to Pulse 89 05/18/2024 10:28 AM EDT Temperature 36.2 C (97.2 F) 07/03/2023 2:03 PM EST Respiratory Rate 16 03/11/2024 9:12 AM EDT [...] 03/14/2023 03/14/2022 FALL RISK ASSESSMENT 03/14/2023 03/14/2022 BONE DENSITY SCREENING 08/03/2024 08/03/2022 MAMMOGRAM 08/22/2024 08/22/2023, 07/26, 05/09/2020 BMI CHECK/ADVISE 08/26/2024 10/11/2023, , 02/07/2023, Additional history exists Covid-19 Vaccine (2022-2 4 season) 2025 08/09/2021, 11/01/2020, 11/01/2020, Additional history exists INFLUENZA (#1) 2025 05/21/2023, 05/27, 05/26/2021, Additional history exists CHOLESTEROL SCREENING 02/09/2029 02/10/2024 , 11/07/2023, 10/09/2022, Additional history exists DTAP/TDAP/TD (2 - Td or Tdap) 05/21/2033 05/21/2023, 11/16/2022 PNEUMOCOCCAL VACCINE Completed 11/16/2022, 07/30/20 19 Care Teams Mental Health Nurse Relationship Specialty Start Date End Date Feroz Reyes MD [address] [place] [address] PCP - General Internal Medicine 09/29/20 Artemio Blunt MD [address] [place] [address] Specialist Gastroenterology 03/14/22 Cornell Castellon MD [address] [place] [address] Specialist Urology 03/14/22 Tamy Chandler FNP [address] [place] [address] Nurse Practitioner Cardiology 03/14/22 Oscar Valiente MD [address] [place] [address] Specialist Cardiology 03/14/22 Bi Frank MD [address] [place] [address] Specialist Ophthalmology 03/14/22
--- OUTSIDE RECORDS SUMMARY | 2025-07-29 12:17 | XMS_ITS | Encounter Summary ---
Author Organization [facility] Prior to 06/26/2024 Address [address] [place] [address] Care Team Providers Care Hog Sawyer Name Role Phone Feroz Reyes MD Primary Care Provider Artemio Blunt MD Unavailable Unavailable Cornell Castellon MD Unavailable UnavailTamy Gonzales Unavailable Unavailable Oscar Valiente MD Unavailable Unavailable Bi Frank MD Unavailable Unavailable Encounter Details Date Type Department Care Team Description 10/04/2020 Release of Information Medical Records [address] [place] [address] Abstract, Provider Social History Tobacco Use Types [...] often do you attend chur ch or gnosticist services? Never 03/14/2022 Do you belong to any clubs o r organizations such as roman catholic groups, unions, fraternal or athletic groups, [...] on filedocumented in this encounter Care Teams Hog Sawyer Relationship Specialty Start Date End Date Feroz Reyes MD [address] [place] [address] PCP - General Internal Medicine 09/29/20 Artemio Blunt MD [address] [place] [address] Specialist Gastroenterology 03/14/22 Cornell Castellon MD [address] [place] [address] Specialist Urology 03/14/22 Tamy Chandler FNP [address] [place] [address] Nurse Practitioner Cardiology 03/14/22 Oscar Valiente MD [address] [place] [address] Specialist Cardiology 03/14/22 Bi Frank MD [address] [place] [address] Specialist Ophthalmology 03/14/22 documented as of this encounter
--- OUTSIDE RECORDS SUMMARY | 2025-07-29 12:17 | XMS_ITS | Encounter Summary ---
Author Organization [facility] Address [address] [place] [address] Care Team Providers Care Substation Wireman Name Role Phone Feroz Reyes MD Primary Care Provider Encounter Details Date Type Department Care Team (Late st Contact Info) Description 07/14/2025 [facility] [address] [place] [address] Art Martinez, ZULEMA [address] [place] [address] Social History Tobacco Use Types Packs/Day Years [...] for your loved ones. For example, child day care provider or elderly care for an older adult? [...] as of this encounter Plan of Treatment Upcoming Encounters Date Type Department Care Team (Late st Contact Info) Description 03/31/2026 10:30 AM EDT Appointment [facility] Ultrasound [address] [place] [address] 04/06/2026 10:30 AM EDT Office Visit Vascular Surgery - [place] [address] [place] [address] Karol Schafer MD [address] [place] [address] documented as of this encounter Visit Diagnoses Not on filedocumented in this encounter Additional Health Concerns Assessment Noted Time PHQ-9 Depression Total Score: 0 04/06/20 25 10:33 AM EDT documented as of this encounter Care Teams Substation Wireman Relationship Specialty Start Date End Date Feroz Reyes MD [address] [place] [address] PCP - General Internal Medicine 09/29/20 documented as of this encounter
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
--- OUTSIDE RECORDS SUMMARY | 2025-07-29 12:17 | XMS_ITS | Encounter Summary ---
Author Organization [facility] Prior to 06/26/2024 Address [address] [place] [address] Care Team Providers Care Sales Floor Team Member Name Role Phone Feroz Reyes MD Primary Care Provider [phone] Artemio Blunt MD Unavailable Unavailable Cornell Castellon MD Unavailable UnavailTamy Gonzales Unavailable Unavailable Oscar Valiente MD Unavailable Unavailable Bi Frank MD Unavailable Unavailable Encounter Details Date Type Department Care Team Description 05/31/2023 Client Delivery Manager Report Medical Records [address] [place] [address] Deshawn Rao DO Social History Tobacco Use [...] filedocumented in this encounter Care Teams Sales Floor Team Member Relationship Specialty Start Date End Date Feroz Reyes MD [address] [place] [address] PCP - General Internal Medicine 09/29/20 Artemio Blunt MD [address] [place] [address] Specialist Gastroenterology 03/14/22 Cornell Castellon MD [address] [place] [address] Specialist Urology 03/14/22 Tamy Chandler FNP [address] [place] [address] Nurse Practitioner Cardiology 03/14/22 Oscar Valiente MD [address] [place] [address] Specialist Cardiology 03/14/22 Bi Frank MD [address] [place] [address] Specialist Ophthalmology 03/14/22 documented as of this encounter
--- OUTSIDE RECORDS SUMMARY | 2025-07-29 12:17 | XMS_ITS | Encounter Summary ---
Author Organization [facility] Prior to 06/26/2024 Address [address] [place] [address] Care Team Providers Care Airdrop Systems Technician Name Role Phone Feroz Reyes MD Primary Care Provider [phone] Artemio Blunt MD Unavailable Unavailable Cornell Castellon MD Unavailable UnavailTamy Gonzales Unavailable Unavailable Oscar Valiente MD Unavailable Unavailable Bi Frank MD Unavailable Unavailable Encounter Details Date Type Department Care Team Description 03/02/2024 Orders Only Vascular Surgery - [place] [address] [facility] [address] [place] [address] Karol Schafer MD [address] [place] [address] [address] [place] [address] Carotid stenosis, asymptomatic, bilateral Social History Tobacco Use Types Packs/Day Years [...] any clubs o r organizations such as zoroastrian groups, unions, fraternal or athletic groups, or [...] Procedure Name Priority Date/Time Associated Diagnosis Comments OK DUPLEX SCAN EXTRACRANIAL ART COMPL BI STUDY Routine 02/26/2024 Carotid stenosis, asymptomatic, bilateral documented in this encounter Results * OK DUPLEX SCAN EXTRACRANIAL ART COMPL BI STUDY (02/26/2024) Karol Schafer MD VASCULAR ULTRASO UND documented in this encounter Visit Diagnoses Diagnosis Carotid stenosis, asymptomatic, bilateral documented in this encounter Care Teams Airdrop Systems Technician Relationship Specialty Start Date End Date Feroz Reyes MD [address] [place] [address] PCP - General Internal Medicine 09/29/20 Artemio Blunt MD [address] [place] [address] Specialist Gastroenterology 03/14/22 Cornell Castellon MD [address] [place] [address] Specialist Urology 03/14/22 Tamy Chandler FNP [address] [place] [address] Nurse Practitioner Cardiology 03/14/22 Oscar Valiente MD [address] [place] [address] Specialist Cardiology 03/14/22 iB Frank MD [address] [place] [address], [place] [address] Specialist Ophthalmology 03/14/22 documented as of this encounter
--- OUTSIDE RECORDS SUMMARY | 2025-07-29 12:17 | XMS_ITS | Encounter Summary ---
Author Organization [facility] Prior to 06/26/2024 Address [address] [place] [address] Care Team Providers Care Greenhouse Technician Name Role Phone Feroz Reyes MD Primary Care Provider [phone] Artemio Blunt MD Unavailable Unavailable Cornell Castellon MD Unavailable UnavailTamy Gonzales Unavailable Unavailable Oscar Valiente MD Unavailable Unavailable Bi Frank MD Unavailable Unavailable Encounter Details Date Type Department Care Team Description 10/05/2020 Release of Information Medical Records [address] [place] [address] Abstract, Provider Social History Tobacco Use Types [...] any clubs o r organizations such as cheondoism groups, unions, fraternal or athletic groups, or [...] on file documented as of this encounter Nursing Notes * Liberty Jack - 10/05/2020 2:37 PM EST AUTHORIZATION TO OBTAIN MEDICAL RECORDS MAILED TO LEE ANN THOMAS MD documented in this encounter Plan of Treatment Not on file documented as of this encounter Visit Diagnoses Not on filedocumented in this encounter Care Teams Greenhouse Technician Relationship Specialty Start Date End Date Feroz Reyes MD [address] [place] [address] PCP - General Internal Medicine 09/29/20 Artemio Blunt MD [address] [place] [address] Specialist Gastroenterology 03/14/22 Cornell Castellon MD [address] [place] [address] Specialist Urology 03/14/22 Tamy Chandler FNP [address] [place] [address] Nurse Practitioner Cardiology 03/14/22 Oscar Valiente MD [address] [place] [address] Specialist Cardiology 03/14/22 Bi Frank MD [address] [place] [address] Specialist Ophthalmology 03/14/22 documented as of this encounter
--- OUTSIDE RECORDS SUMMARY | 2025-07-29 12:18 | XMS_ITS | Encounter Summary ---
Author Organization [facility] Prior to 06/26/2024 Address [address] [place] [address] Care Team Providers Care Chucking Machine Operator Name Role Phone Feroz Reyes MD Primary Care Provider [phone] Artemio Blunt MD Unavailable Unavailable Cornell Castellon MD Unavailable UnavailTamy Gonzales Unavailable Unavailable Oscar Valiente MD Unavailable Unavailable Bi Frank MD Unavailable Unavailable Encounter Details Date Type Department Care Team Description 11/16/2020 Telephone Adult Medicine [address] [address] Ro Price PA-C [address] [place] [address] Social History Tobacco Use Types Packs/Day Years [...] week 03/14/2022 How often do you attend [facility] or episcopal services? Never 03/14/2022 Do you belong to any clubs o r organizations such as jain groups, unions, fraternal or athletic groups, or [...] for pt to call office back. Ext [phone] or route to B side. * Telephone [...] on filedocumented in this encounter Care Teams Chucking Machine Operator Relationship Specialty Start Date End Date Feroz Reyes MD [address] [place] [address] PCP - General Internal Medicine 09/29/20 Artemio Blunt MD [address] [place] [address] Specialist Gastroenterology 03/14/22 Cornell Castellon MD [address] [place] [address] Specialist Urology 03/14/22 Tamy Chandler FNP [address] [place] [address] Nurse Practitioner Cardiology 03/14/22 Oscar Valiente MD [address] [place] [address] Specialist Cardiology 03/14/22 Bi Frank MD [address] [place] [address] Specialist Ophthalmology 03/14/22 documented as of this encounter
--- OUTSIDE RECORDS SUMMARY | 2025-07-29 12:18 | XMS_ITS | Encounter Summary ---
Author Organization [facility] Prior to 06/26/2024 Address [address] [place] [address] Care Team Providers Care Cashier Greeter Name Role Phone Feroz Reyes MD Primary Care Provider [phone] Artemio Blunt MD Unavailable Unavailable Cornell Castellon MD Unavailable UnavailTamy Gonzales Unavailable Unavailable Oscar Valiente MD Unavailable Unavailable Bi Frank MD Unavailable Unavailable Encounter Details Date Type Department Care Team Description 05/04/2022 Telephone Adult Medicine [facility] [address] [place] [address] Sara Sahu PA-C Social History Tobacco Use [...] 03/14/2022 How often do you attend [facility] or islam services? Never 03/14/2022 Do you belong to any clubs o r organizations such as druze groups, unions, fraternal or athletic groups, or [...] to call back. Please put call to [phone] or remessage to a-pool * Telephone Encounter [...] on filedocumented in this encounter Care Teams Cashier Greeter Relationship Specialty Start Date End Date Feroz Reyes MD [address] [place] [address] PCP - General Internal Medicine 09/29/20 Artemio Blunt MD [address] [place] [address] Specialist Gastroenterology 03/14/22 Cornell Castellon MD [address] [place] [address] Specialist Urology 03/14/22 Tamy Chandler FNP [address] [place] [address] Nurse Practitioner Cardiology 03/14/22 Oscar Valiente MD [address] [place] [address] Specialist Cardiology 03/14/22 Bi Frank MD [address] [place] [address] Specialist Ophthalmology 03/14/22 documented as of this encounter
--- OUTSIDE RECORDS SUMMARY | 2025-07-29 12:18 | XMS_ITS | Encounter Summary ---
Author Organization [facility] Prior to 06/26/2024 Address [address] [place] [address] Care Team Providers Care Apn Name Role Phone Feroz Reyes MD Primary Care Provider [phone] Artemio Blunt MD Unavailable Unavailable Cornell Castellon MD Unavailable UnavailTamy Gonzales Unavailable Unavailable Oscar Valiente MD Unavailable Unavailable Bi Frank MD Unavailable Unavailable Encounter Details Date Type Department Care Team Description 07/26/2023 Orders Only Medical Records [address] [place] [address] Yosvany Mosquera PA-C Social History Tobacco Use Types Packs/Day [...] you attend [facility] or bahai services? Never 03/14/2022 Do you belong to [...] on filedocumented in this encounter Care Teams Apn Relationship Specialty Start Date End Date Feroz Reyes MD [address] [place] [address] PCP - General Internal Medicine 09/29/20 Artemio Blunt MD [address] [place] [address] Specialist Gastroenterology 03/14/22 Cornell Castellon MD [address] [place] [address] Specialist Urology 03/14/22 Tamy Chandler FNP [address] [place] [address] Nurse Practitioner Cardiology 03/14/22 Oscar Valiente MD [address] [place] [address] Specialist Cardiology 03/14/22 Bi Frank MD [address] [place] [address] Specialist Ophthalmology 03/14/22 documented as of this encounter
--- OUTSIDE RECORDS SUMMARY | 2025-07-29 12:18 | XMS_ITS | Encounter Summary ---
Author Organization [facility] Prior to 06/26/2024 Address [address] [place] [address] Care Team Providers Care Manager Transfer Name Role Phone Feroz Reyes MD Primary Care Provider [phone] Artemio Blunt MD Unavailable Unavailable Cornell Castellon MD Unavailable UnavailTamy Gonzales Unavailable Unavailable Oscar Valiente MD Unavailable Unavailable Bi Frank MD Unavailable Unavailable Reason for Visit * Reason Onset Date Comments Prior Authorization 05/14/2022 Encounter Details Date Type Department Care Team Description 05/14/2022 Telephone Adult Medicine [address] [address] Feroz Reyes MD [address] [place] [address] Prior Authorization Social History Tobacco Use Types [...] How often do you attend chur or advent services? Never 03/14/2022 Do you belong to [...] My Meds request: Yes -- Walker Code [id number] Name of Medication cyclobenzaprine (FLEXERIL) 5 MG tablet Dose of Medication 5MG What is the RX # from the faxed refill? NA How does patient take this med? Take 1 Tablet by mouth 3 times daily as needed for Muscle spasms What Pharmacy did the fax come from: [facility] Pharm[facility] fax #: [phone] documented in this encounter Plan of Treatment Not on file documented as of this encounter Visit Diagnoses Not on filedocumented in this encounter Care Teams Manager Transfer Relationship Specialty Start Date End Date Feroz Reyes MD [address] [place] [address] PCP - General Internal Medicine 09/29/20 Artemio Blunt MD [address] [place] [address] Specialist Gastroenterology 03/14/22 Cornell Castellon MD [address] [place] [address] Specialist Urology 03/14/22 Tamy Chandler FNP [address] [place] [address] Nurse Practitioner Cardiology 03/14/22 Oscar Valiente MD [address] [place] [address] Specialist Cardiology 03/14/22 Bi Frank MD [address] [place] [address] Specialist Ophthalmology 03/14/22 documented as of this encounter
--- OUTSIDE RECORDS SUMMARY | 2025-07-29 12:18 | XMS_ITS | Encounter Summary ---
Author Organization [facility] Prior to 06/26/2024 Address [address] [place] [address] Care Team Providers Care Office Systems Technology Instructor Name Role Phone Feroz Reyes MD Primary Care Provider Artemio Blunt MD Unavailable Unavailable Cornell Castellon MD Unavailable UnavailTamy Gonzales Unavailable Unavailable Oscar Valiente MD Unavailable Unavailable Bi Frank MD Unavailable Unavailable Reason for Visit * Reason Onset Date Comments [facility]NA Call 11/01/2023 Encounter Details Date Type Department Care Team Description 11/01/2023 Telephone Adult Medicine [address] [address] Feroz Reyes MD [address] [place] [address] V[facility] Call Social History Tobacco Use Types Packs/Day Years [...] any clubs o r organizations such as mormonism groups, unions, fraternal or athletic groups, or [...] Telephone Encounter - Layla Maria L.P.N. - 11/01/2023 10:18 AM EST FYI- Verbal orders given for OT 1x week x 6wks * Telephone Encounter - Keila Caraballo - 11/01/2023 10:07 AM EST [facility] CALL Which [facility] office is calling? [place] Full name of caller: Marichuy The caller is An Occupational Therapist Is the caller at the patients home?: NO Reason for call: Verbal orders for OT 1x per wk for 6 wks Does caller need an urgent call back? YES Was CONTACT Telephone # obtained above?: YES Fax #: documented in this encounter Plan of Treatment Not on file documented as of this encounter Visit Diagnoses Not on filedocumented in this encounter Care Teams Office Systems Technology Instructor Relationship Specialty Start Date End Date Feroz Reyes MD [address] [place] [address] PCP - General Internal Medicine 09/29/20 Artemio Blunt MD [address] [place] [address] Specialist Gastroenterology 03/14/22 Cornell Castellon MD [address] [place] [address] Specialist Urology 03/14/22 Tamy Chandler FNP [address] [place] [address] Nurse Practitioner Cardiology 03/14/22 Oscar Valiente MD [address] [place] [address] Specialist Cardiology 03/14/22 Bi Frank MD [address] [place] [address] Specialist Ophthalmology 03/14/22 documented as of this encounter
--- OUTSIDE RECORDS SUMMARY | 2025-07-29 12:18 | XMS_ITS | Encounter Summary ---
Author Organization [facility] Prior to 06/26/2024 Address [address] [place] [address] Care Team Providers Care Kingsbury Machine Operator Name Role Phone Feroz Reyes MD Primary Care Provider [phone] Artemio Blunt MD Unavailable Unavailable Cornell Castellon MD Unavailable UnavailTamy Gonzales Unavailable Unavailable Oscar Valiente MD Unavailable Unavailable Bi Frank MD Unavailable Unavailable Encounter Details Date Type Department Care Team Description 10/28/2023 SNF discharge summary Medical Records [address] [place] [address] Abstract, Provider Social History Tobacco Use Types [...] do you attend [facility] or scientologist services? Never 03/14/2022 Do you belong to any clubs o r organizations such as adventist groups, unions, fraternal or athletic groups, or [...] on filedocumented in this encounter Care Teams [place] Machine Operator Relationship Specialty Start Date End Date Feroz Reyes MD [address] [place] [address] PCP - General Internal Medicine 09/29/20 Artemio Blunt MD [address] [place] [address] Specialist Gastroenterology 03/14/22 Cornell Castellon MD [address] [place] [address] Specialist Urology 03/14/22 Tamy Chandler FNP [address] [place] [address] Nurse Practitioner Cardiology 03/14/22 Oscar Valiente MD [address] [place] [address] Specialist Cardiology 03/14/22 Bi Frank MD [address] [place] [address] Specialist Ophthalmology 03/14/22 documented as of this encounter
--- OUTSIDE RECORDS SUMMARY | 2025-07-29 12:18 | XMS_ITS | Encounter Summary ---
Author Organization [facility] Prior to 06/26/2024 Address [address] [place] [address] Care Team Providers Care Appliquer Name Role Phone Feroz Reyes MD Primary Care Provider [phone] Artemio Blunt MD Unavailable Unavailable Cornell Castellon MD Unavailable UnavailTamy Gonzales Unavailable Unavailable Oscar Valiente MD Unavailable Unavailable Bi Frank MD Unavailable Unavailable Encounter Details Date Type Department Care Team Description 11/02/2022 Hat Blocking Machine Operator Report Medical Records [address] [place] [address] Deshawn Rao DO Social History Tobacco Use [...] How often do you attend chur or sikh services? Never 03/14/2022 Do you [...] on filedocumented in this encounter Care Teams Appliquer Relationship Specialty Start Date End Date Feroz Reyes MD [address] [place] [address] PCP - General Internal Medicine 09/29/20 Artemio Blunt MD [address] [place] [address] Specialist Gastroenterology 03/14/22 Cornell Castellon MD [address] [place] [address] Specialist Urology 03/14/22 Tamy Chandler FNP [address] [place] [address] Nurse Practitioner Cardiology 03/14/22 Oscar Valiente MD [address] [place] [address] Specialist Cardiology 03/14/22 Bi Frank MD [address] [place] [address] Specialist Ophthalmology 03/14/22 documented as of this encounter
--- OUTSIDE RECORDS SUMMARY | 2025-07-29 12:18 | XMS_ITS | Encounter Summary ---
Author Organization [facility] Prior to 06/26/2024 Address [address] [place] [address] Care Team Providers Care Distance Learning Coordinator Name Role Phone Feroz Reyes MD Primary Care Provider [phone] Artemio Blunt MD Unavailable Unavailable Cornell Castellon MD Unavailable UnavailTamy Gonzales Unavailable Unavailable Oscar Valiente MD Unavailable Unavailable Bi Frank MD Unavailable Unavailable Encounter Details Date Type Department Care Team Description 12/13/2020 Dryerman/Woman Report Medical Records [address] [place] [address] Tamy Chandler FNP Social History Tobacco Use Types Packs/Day Years [...] How often do you attend chur or rastafarian services? Never 03/14/2022 Do you belong to [...] have Coronavirus / COVID-19? No / Unsure 12/15/2020 12:55 PM EDT documented as of this encounter Plan of Treatment Not on file documented as of this encounter Visit Diagnoses Not on filedocumented in this encounter Care Teams Distance Learning Coordinator Relationship Specialty Start Date End Date Feroz Reyes MD [address] [place] [address] PCP - General Internal Medicine 09/29/20 Artemio Blunt MD [address] [place] [address] Specialist Gastroenterology 03/14/22 Cornell Castellon MD [address] [place] [address] Specialist Urology 03/14/22 Tamy Chandler FNP [address] [place] [address] Nurse Practitioner Cardiology 03/14/22 Oscar Valiente MD [address] [place] [address] Specialist Cardiology 03/14/22 Bi Frank MD [address] [place] [address] Specialist Ophthalmology 03/14/22 documented as of this encounter
--- OUTSIDE RECORDS SUMMARY | 2025-07-29 12:18 | XMS_ITS | Encounter Summary ---
Author Organization [facility] Prior to 06/26/2024 Address [address] [place] [address] Care Team Providers Care Surgery Consultant Name Role Phone Feroz Reyes MD Primary Care Provider [phone] Artemio Blunt MD Unavailable Unavailable Cornell Castellon MD Unavailable UnavailTamy Gonzales Unavailable Unavailable Oscar Valeinte MD Unavailable Unavailable Bi Frank MD Unavailable Unavailable Reason for Referral * EXTERNAL (Routine) - Authorized/Booked Specialty Diagnoses / Procedures Referred By Contac t Referred To Contact Physical Therapy Procedures REFERRAL TO PHYSICAL THERAPY Sara Sahu PA-C [address] [place], [place] [id number] [place] [address] Referral ID Status Reason Start Date Expiration Date V isits Requested Visits Authorized [id number] Authorized/B ooked 06/20/2022 09/20/2022 1 1 Reason for Visit * Reason Onset Date Comments Construction Project Coordinator Feedback 06/19/2022 Physical therapy Encounter Details Date Type Department Care Team Description 06/19/2022 Telephone Walk In [facility] [address] [place] [address] Sara Sahu PA-C Construction Project Coordinator Feedback (Physical therapy) Social History Tobacco Use Types Packs/Day Years [...] any clubs o r organizations such as buddhist groups, unions, fraternal or athletic groups, or [...] place to sleep or slept in a [facility] (including now)? No 03/14/2022 Sex Assigned at Date Recorded Not on file Job Start Date Occupation Industry Not on file Not on file Not on file documented as of this encounter Miscellaneous Notes * Telephone Encounter - Sara Sahu PA-C - 06/20/2022 8:28 AM EDT All set! Thanks. * Telephone Encounter - Ellen Ramirez - 06/19/2022 6:59 PM EDT Updated order to physical therapy is needed Gaurang 10.28.22 at 830 Order has been pended documented in this encounter Plan of Treatment Not on file documented as of this encounter Visit Diagnoses Not on filedocumented in this encounter Care Teams Surgery Consultant Relationship Specialty Start Date End Date Feroz Reyes MD [address] [place] [address] PCP - General Internal Medicine 09/29/20 Artemio Blunt MD [address] [place] [address] Specialist Gastroenterology 03/14/22 Cornell Castellon MD [address] [place] [address] Specialist Urology 03/14/22 Tamy Chandler FNP [address] [place] [address] Nurse Practitioner Cardiology 03/14/22 Oscar Valiente MD [address] [place] [address] Specialist Cardiology 03/14/22 Bi Frank MD [address] [place] [address] Specialist Ophthalmology 03/14/22 documented as of this encounter
--- OUTSIDE RECORDS SUMMARY | 2025-07-29 12:18 | XMS_ITS | Encounter Summary ---
Author Organization [facility] Prior to 06/26/2024 Address [address] [place] [address] Care Team Providers Care Supervisor Veneer Name Role Phone Feroz Reyes MD Primary Care Provider [phone] Artemio Blunt MD Unavailable Unavailable Cornell Castellon MD Unavailable UnavailTamy Gonzales Unavailable Unavailable Oscar Valiente MD Unavailable Unavailable Bi Frank MD Unavailable Unavailable Encounter Details Date Type Department Care Team Description 09/27/2022 Delivery Technician Report Medical Records [address] [place] [address] Dennis Topete PA-C Social History Tobacco Use [...] week 03/14/2022 How often do you attend [facility] or yazidism services? Never 03/14/2022 Do you [...] on filedocumented in this encounter Care Teams Supervisor Veneer Relationship Specialty Start Date End Date Feroz Reyes MD [address] [place] [address] PCP - General Internal Medicine 09/29/20 Artemio Blunt MD [address] [place] [address] Specialist Gastroenterology 03/14/22 Cornell Castellon MD [address] [place] [address] Specialist Urology 03/14/22 Tamy Chandler FNP [address] [place] [address] Nurse Practitioner Cardiology 03/14/22 Oscar Valiente MD [address] [place] [address] Specialist Cardiology 03/14/22 Bi Frank MD [address] [place] [address] Specialist Ophthalmology 03/14/22 documented as of this encounter
--- OUTSIDE RECORDS SUMMARY | 2025-07-29 12:18 | XMS_ITS | Encounter Summary ---
Author Organization [facility] Prior to 06/26/2024 Address [address] [place] [address] Care Team Providers Care Sales Operations Lead Name Role Phone Feroz Reyes MD Primary Care Provider Artemio Blunt MD Unavailable Unavailable Cornell Castellon MD Unavailable UnavailTamy Gonzales Unavailable Unavailable Oscar Valiente MD Unavailable Unavailable Bi Frank MD Unavailable Unavailable Reason for Visit * Reason Onset Date Comments TEST RESULTS 03/03/2021 Encounter Details Date Type Department Care Team Description 03/03/2021 Telephone Adult Medicine [address] [address] Ro Price PA-C [address] [place] [address] TEST RESULTS Social History Tobacco Use Types [...] often do you attend chur ch or druze services? Never 03/14/2022 Do you [...] return call, please put call through to [phone] or re message to b pool * Telephone Encounter - Kaitlynn Tiptno M.A. - 03/03/2021 5:03 PM EDT ----- [...] filedocumented in this encounter Care Teams Sales Operations Lead Relationship Specialty Start Date End Date Feroz Reyes MD [address] [place] [address] PCP - General Internal Medicine 09/29/20 Artemio Blunt MD [address] [place] [address] Specialist Gastroenterology 03/14/22 Cornell Castellon MD [address] [place] [address] Specialist Urology 03/14/22 Tamy Chandler FNP [address] [place] [address] Nurse Practitioner Cardiology 03/14/22 Oscar Valiente MD [address] [place] [address] Specialist Cardiology 03/14/22 Bi Frank MD [address] [place] [address] Specialist Ophthalmology 03/14/22 documented as of this encounter
--- OUTSIDE RECORDS SUMMARY | 2025-07-29 12:18 | XMS_ITS | Encounter Summary ---
Author Organization [facility] Prior to 06/26/2024 Address [address] [place] [address] Care Team Providers Care Director Of Spa And Guest Experience Name Role Phone Feroz eRyes MD Primary Care Provider [phone] Artemio Blunt MD Unavailable Unavailable Cornell Castellon MD Unavailable UnavailTamy Gonzales Unavailable Unavailable Oscar Valiente MD Unavailable Unavailable Bi Frank MD Unavailable Unavailable Encounter Details Date Type Department Care Team Description 01/06/2024 Hospital Medical Records [address] [place] [address] Artemio Blunt MD Social History Tobacco Use Types Packs/Day [...] any clubs o r organizations such as lutheran groups, unions, fraternal or athletic groups, or [...] filedocumented in this encounter Care Teams Director Of Spa And Guest Experience Relationship Specialty Start Date End Date Feroz Reyes MD [address] [place] [address] PCP - General Internal Medicine 09/29/20 Artemio Blunt MD [address] [place] [address] Specialist Gastroenterology 03/14/22 Cornell Castellon MD [address] [place] [address] Specialist Urology 03/14/22 Tamy Chandler FNP [address] [place] [address] Nurse Practitioner Cardiology 03/14/22 Oscar Valiente MD [address] [place] [address] Specialist Cardiology 03/14/22 Bi Frank MD [address] [place] [address] Specialist Ophthalmology 03/14/22 documented as of this encounter
--- OUTSIDE RECORDS SUMMARY | 2025-07-29 12:18 | XMS_ITS | Encounter Summary ---
Author Organization [facility] Prior to 06/26/2024 Address [address] [place] [address] Care Team Providers Care Fuel House Attendant Name Role Phone Feroz Reyes MD Primary Care Provider [phone] Artemio Blunt MD Unavailable Unavailable Cornell Castellon MD Unavailable UnavailTamy Gonzales Unavailable Unavailable Oscar Valiente MD Unavailable Unavailable Bi Frank MD Unavailable Unavailable Encounter Details Date Type Department Care Team Description 12/20/2020 SCAN Medical Records [address] [place] [address] Abstract, Provider Social History Tobacco Use Types [...] on filedocumented in this encounter Care Teams Fuel House Attendant Relationship Specialty Start Date End Date Feroz Reyes MD [address] [place] [address] PCP - General Internal Medicine 09/29/20 Artemio Blunt MD [address] [place] [address] Specialist Gastroenterology 03/14/22 Cornell Castellon MD [address] [place] [address] Specialist Urology 03/14/22 Tamy Chandler FNP [address] [place] [address] Nurse Practitioner Cardiology 03/14/22 Oscar Valiente MD [address] [place] [address] Specialist Cardiology 03/14/22 Bi Frank MD [address] [place] [address] Specialist Ophthalmology 03/14/22 documented as of this encounter
--- OUTSIDE RECORDS SUMMARY | 2025-07-29 12:18 | XMS_ITS | Encounter Summary ---
Author Organization [facility] Prior to 06/26/2024 Address [address] [place] [address] Care Team Providers Care Landscaper Helper Name Role Phone Feroz Reyes MD Primary Care Provider Artemio Blunt MD Unavailable Unavailable Cornell Castellon MD Unavailable UnavailTamy Gonzales Unavailable Unavailable Oscar Valiente MD Unavailable Unavailable Bi Frank MD Unavailable Unavailable Encounter Details Date Type Department Care Team Description 01/06/2021 Telephone Adult Medicine [address] [address] Feroz Reyes MD [address] [place] [address] Social History Tobacco Use Types Packs/Day Years [...] week 03/14/2022 How often do you attend [facility] or holiness services? Never 03/14/2022 Do you [...] encounter Miscellaneous Notes * Telephone Encounter - Fe Williamson M.A. - 01/06/2021 3:46 PM EDT Patient notified of message. Verbally understands. * Telephone Encounter - Malia Villalba M.A. - 01/06/2021 3:33 PM EDT Mailbox full unable to leave a message * Telephone Encounter - Rossi Collins - 01/06/2021 3:26 PM EDT Patient returned Fe's call * Telephone Encounter - Fe Williamson M.A. - 01/06/2021 3:11 PM EDT Tried calling pt, mailbox full [phone] or resend to B side. * Telephone Encounter - Martha Kauffman - 01/06/2021 3:01 PM EDT Pt returning call pls call pt [phone] * Telephone Encounter - Fe Williamson M.A. - 01/06/2021 9:01 AM EDT Left message for patient to call office back. I'm at [phone] or resend to B side. * Telephone Encounter - Fe Williamson M.A. - 01/06/2021 9:01 AM EDT ----- Message from Lesvia Schwartz PA-C sent at 01/05/2021 7:02 PM EDT ----- Please call pt - tell her I am happy to see that both her magnesium level and her vit D level have normalized. I want her to continue with both supplements of mag and D for now. I will switch her to a lower, daily dose of vit D after she has finished this last round with the weekly high dose. Let her know I already got her salvage determiner's notes and reviewed them, I am very impressed with the care Dr. Chandler is providing her with, and pt's Bp was normal at her last visit with her. I am going toreach out to Dr. Chandler by phone in the next week and make sure we are all doing our best to coordinate the pt's care between both clinics. documented in this encounter Plan of Treatment Not on file documented as of this encounter Visit Diagnoses Not on filedocumented in this encounter Care Teams Landscaper Helper Relationship Specialty Start Date End Date Feroz Reyes MD [address] [place] [address] PCP - General Internal Medicine 09/29/20 Artemio Blunt MD [address] [place] [address] Specialist Gastroenterology 03/14/22 Cornell Castellon MD [address] [place] [address] Specialist Urology 03/14/22 Tamy Chandler FNP [address] [place] [address] Nurse Practitioner Cardiology 03/14/22 Oscar Valiente MD [address] [place] [address] Specialist Cardiology 03/14/22 Bi Frank MD [address] [place] [address] Specialist Ophthalmology 03/14/22 documented as of this encounter
--- OUTSIDE RECORDS SUMMARY | 2025-07-29 12:18 | XMS_ITS | Encounter Summary ---
Author Organization [facility] Prior to 06/26/2024 Address [address] [place] [address] Care Team Providers Care Jewel Hole Cornerer Name Role Phone Feroz Reyes MD Primary Care Provider [phone] Artemio Blunt MD Unavailable Unavailable Cornell Castellon MD Unavailable UnavailTamy Gonzales Unavailable Unavailable Oscar Valiente MD Unavailable Unavailable Bi Frank MD Unavailable Unavailable Reason for Visit * Reason Onset Date Comments [facility] Call 11/29/2023 [place] Encounter Details Date Type Department Care Team Description 11/29/2023 Telephone Adult Medicine [address] [address] Feroz Reyes MD [address] [place] [address] [facility] Call ([facility]) Social History Tobacco Use [...] How often do you attend chur or confucianism services? Never 03/14/2022 Do you belong to any clubs o r organizations such as tenriism groups, unions, fraternal or athletic groups, or [...] on filedocumented in this encounter Care Teams Jewel Hole Cornerer Relationship Specialty Start Date End Date Feroz Reyes MD [address] [place] [address] PCP - General Internal Medicine 09/29/20 Artemio Blunt MD [address] [place] [address] Specialist Gastroenterology 03/14/22 Cornell Castellon MD [address] [place] [address] Specialist Urology 03/14/22 Tamy Chandler FNP [address] [place] [address] Nurse Practitioner Cardiology 03/14/22 Oscar Valiente MD [address] [place] [address] Specialist Cardiology 03/14/22 Bi Frank MD [address] [place] [address] Specialist Ophthalmology 03/14/22 documented as of this encounter
--- OUTSIDE RECORDS SUMMARY | 2025-07-29 12:18 | XMS_ITS | Clinical Summary ---
Author Organization [facility] Address [address] [place] [phone] Phone Care Team Providers Care Engineering Operations Leader Name Role Phone Feroz Reyes MD Primary Care Provider [phone] Allergies Active Allergy Reactions Criticality Noted Date [...] netarsudiL (Rhopressa) 0.02 % drops 024 Active loperamide (IMODIUM) 2 mg capsule Take 1 capsule (2 mg total) by mouth if needed. 025 Active prednisoLONE acetate (PRED FORTE) 1 % ophthalmic suspension Administer 1 drop into both eyes 2 (two) times a day. 025 Active amLODIPine (NORVASC) 5 mg tablet TAKE 1 TABLET BY MOUTH DAILY 90 tablet 1 025 Active potassium chloride (KLOR-CON) 10 mEq CR tablet TAKE 1 TABLET BY MOUTH TWICE DAILY 180 tablet 1 Active neomycin-polymyxi n-dexamethamethas one (POLYDEX) 3.5 mg/g-10,000 unit/g-0.1 % ointment Active clonazePAM (KlonoPIN) 0.5 mg tablet Take 1 tablet (0.5 mg total) by mouth 2 (two) times a day. Active nitroglycerin (NITROSTAT) 0.4 mg SL tabletIndications :Angina of effort (CMS/HCC V24) Place 1 tablet (0.4 mg total) under the tongue every 5 (five) minutes if needed for chest pain. 90 tablet Active gabapentin (NEURONTIN) 300 mg capsule TAKE 1 CAPSULE BY MOUTH TWICE DAILY (in addition to 100 MG capsule at night) 180 capsule 1 Active gabapentin (NEURONTIN) 100 mg capsule Take 1 capsule (100 mg total) by mouth at bedtime. (In addition to a 300 mg capsule at night) 90 capsule 1 025 Active rosuvastatin (CRESTOR) 40 mg tablet TAKE 1 TABLET(40 MG) BY MOUTH 1 TIME EACH DAY 90 tablet 1 025 Active loratadine (CLARITIN) 10 mg tablet Take 1 tablet (10 mg total) by mouth 1 (one) time each day. 90 tablet 1 Active lidocaine (LIDODERM) 5 % patchIndications: Chronic midline low back pain without sciatica APPLY 1 PATCH TOPICALLY TO THE SKIN 1 TIME EACH DAY 30 patch Active fluticasone propionate (FLONASE) 50 mcg/actuation nasal sprayIndications: Sinus pressure Administer 2 sprays into each nostril 1 (one) time each day. Shake gently. Before first use, prime pump. After use, clean tip and replace cap. 16 g 5 2025 Active ondansetron ODT (ZOFRAN-ODT) 4 mg disintegrating tablet 2024 Discontinued(T herapy completed) lidocaine (LIDODERM) 5 % patchIndications: Chronic midline low back pain without sciatica Apply 1 patch topically 1 (one) time each day. 30 each 2024 Discontinued cetirizine (ZyrTEC) 10 mg tabletIndications :Sinus pressure Take 1 tablet (10 mg total) by mouth 1 (one) time each day. 30 each 2 025 2024 Discontinued amoxicillin-clavu lanate (AUGMENTIN) 875-125 mg per tabletIndications :Sinus pressure Take 1 tablet by mouth 2 (two) times a day for 10 days. 20 each 025 2024 Discontinued(T herapy completed) Active Problems Problem Noted Date Diagnosed Date Allergic rhinitis 07/27/2025 Spinal stenosis of lumbar re gion with [...] PM EDT): She was prescribed Augmentin by [facility] and she will complete a course. Symptoms have improved. I have placed a referral to gastroenterology (Dr. Blunt at [place]) for her. She will also keep her [...] (06/15/2024): Covid 07/03/23 PVD (peripheral vascular disease) ([facility]/HCC V24) 02/28/2023 Stage 3 chronic kidney disease (CMS/HCC V24, CMS /HCC V28) 03/31/2021 Hypercholesterolemia 12/26/2020 Nephrolithiasis 12/26/2020 Anemia 12/26/2020 Bilateral renal cysts 12/15/2020 Adrenal adenoma, right 12/07/2020 Gastroesophageal reflux disease 10/31/2020 Essential hypertension 10/31/2020 Cervical radiculopathy 10/31/2020 Encounters Date Type Department Care Team Description 07/27/2025 9:30 AM EST Office Visit Internal Medicine [address] [phone] Feroz Reyes MD Hypercholesterolemia (Primary Dx); Essential hypertension; Allergic rhinitis, unspecified seasonality, unspecified trigger 07/27/2025 Telephone Internal Medicine [address] [phone] Feroz Reyes MD 07/14/2025 Results Follow-Up Internal [address] [phone] Art Martinez NP 07/13/2025 1:35 PM EST Lab Draw Station [address] Vitamin D deficiency; Fatigue, unspecified type; Screening for metabolic disorder 07/13/2025 1:00 PM EST Office Visit Internal [address] [phone] Art Martinez NP Fatigue, unspecified type (Primary Dx); Sinus pressure; Screening for metabolic disorder; Vitamin D deficiency; Essential hypertension; Skin tag 07/07/2025 Telephone Internal Medicine [address] [phone] Feroz Reyes MD 05/20/2025 Telephone Internal Medicine [address] [phone] Feroz Reyes MD 05/13/2025 Telephone Neurosurgery [address] [place] [phone] Dionicio Stark PA 05/13/2025 Telephone Internal [facility] - [facility] [address] [place] [place] [phone] Lakisha Doshi MA 05/11/2025 3:24 PM EDT - 05/11/2025 11:59 PM EDT Hospital Encounter Xray - [facility] [address] [facility] [place] [phone] Trochanteric bursitis of left hip Discharge Disposition: Home or Self Care 05/11/2025 3:24 PM EDT - 05/11/2025 11:59 PM EDT [facility] [place] [phone] Spinal stenosis of lumbar region with neurogenic claudication Discharge Disposition: Home or Self Care 05/11/2025 3:24 PM EDT - 05/11/2025 11:59 PM EDT Hospital Encounter X[facility] [address] [facility] [address] [place] [phone] Chronic midline low back pain without sciatica Discharge Disposition: Home or Self Care 05/11/2025 2:30 PM EDT Office Visit [facility] [place] [place] [phone] Darius Montoya NP Chronic midline low back pain without sciatica (Primary Dx); Immunization due; Angina of effort ([facility] V24); Closed fracture of coccyx, initial encounter ([facility] V24, [facility] V28) 05/05/2025 10:30 AM EDT Consult Neurosurgery [place] [address] [place] [address] Dionicio Stark PA Trochanteric bursitis of left hip (Primary Dx); Spinal stenosis of lumbar region with neurogenic claudication from Last 3 Months Immunizations Immunization Administration Dates Next Due Influenza trivalent, 0.5mL [...] for your loved ones. For example, child development specialist or elderly care for an older adult? [...] Mass Index 24.67 07/27/2025 9:46 AM EST Plan of Treatment Upcoming Encounters Date Type Department Care Team (Late st Contact Info) Description 03/31/2026 10:30 AM EDT Appointment [facility] Ultrasound [address] [place] [phone] 04/06/2026 10:30 AM EDT Office Visit Vascular Surgery [facility] [address] [place] [address] Karol Schafer MD [address] [place] [address] Health Maintenance Due Date Last Done Comments RSV Immunization Adult Patients (1 - 1-dose 75+ series) 2016 COVID-19 Vaccine ( season) 2025 06/17/2024, 08/09/2021, 11/01/2020, Additional history exists Falls Risk Assessment 04/06/2026 04/06/2025 Medicare Annual Wellness Visit 04/06/2026 04/06/2025 Social Influencers of Health Screening 04/06/2026 04/06/2025 Hypertension/CHF/CAD Annual BMP Blood Test 07/13/2026 07/13/2025, 03/17/2025, 12/04/2024, Additional history exists Cholesterol Screening (Lipid Panel) 12/04/2029 12/04/2024, 02/10/2024, 02/10/2024 Osteoporosis Screening (Bone Density Screening) 08/03/2032 08/03/2022 DTaP,Tdap,and Td Vaccines (3 - Td or Tdap) 05/21/2033 05/21/2023, 11/16/2022 Zoster Vaccines Completed 05/15/2022, 03/20/2022 Pneumococcal Vaccine: 50+ Years Completed 11/16/2022, 07/30/2019 Influenza Vaccine Completed 06/10/2025, , 06/22/2022, Additional history exists Depression Screening Completed 07/27/2025 HIB Vaccines Aged Out No longer eligi [...] Procedure Name Priority Date/Time Associated Diagnosis Comments CBC WITH AUTO DIFFERENTIAL Routine 07/13/2025 1:48 PM EST Fatigue, unspecified type CBC AND DIFFERENTIAL Routine 07/13/2025 1:48 PM EST Fatigue, unspecified type COMPREHENSIVE METABOLIC PANEL Routine 07/13/2025 1:48 PM EST Fatigue, unspecified type Screening for metabolic disorder VITAMIN D 25 HYDROXY Routine 07/13/2025 1:48 PM EST Vitamin D deficiency EXTERNAL MRI REPORT 06/21/2025 EXTERNAL MRI REPORT 06/21/2025 XR LUMBAR SPINE 4+ VIEWS Routine 05/11/2025 3:51 PM EDT Spinal stenosis of lumbar region with neurogenic claudication XR HIP 2-3 VIEWS RIGHT Routine 05/11/2025 3:51 PM EDT Trochanteric bursitis of left hip XR SACRUM COCCYX 2+ VIEWS Routine 05/11/2025 3:51 PM EDT Chronic midline low back pain without sciatica HOME HEALTH ORDER 05/11/2025 LIPID PANEL WITH REFLEX TO DIRECT LDL Routine 12/04/2024 10:35 AM EDT PVD (peripheral vascular disease) ([facility] V24) Hypercholesterolemia DXA BONE DENSITY STUDY 1+ SITS AXIAL SKEL Routine 08/03/2022 9:21 AM EST Encounter for screening for osteoporosis from Last 3 Months or Most Recently Relevant to Health Maintenance Results * (ABNORMAL) CBC auto differential (07/13/2025 1:48 PM EST) WBC 6.8 4.8 - 10.8 K/mcL LAB HEMETOLOGY METHOD 07/13/2025 3:13 PM EST [facility] RBC 3.90 3.80 - 4.80 M/mcL LAB HEMETOLOGY METHOD 07/13/2025 3:13 PM EST [facility] Hemoglobin 11.4(L) 11.5 - 16.0 g/dL LAB HEMETOLOGY METHOD 07/13/2025 3:13 PM [facility] Hematocrit 35.3 35.0 - 47.0 % LAB HEMETOLOGY METHOD 07/13/2025 3:13 PM [facility] MCV 91.5 79.0 - 98.0 FL LAB HEMETOLOGY METHOD 07/13/2025 3:13 PM [facility] MCH 29.5 27.0 - 32.0 pcg LAB HEMETOLOGY METHOD 07/13/2025 3:13 PM [facility] MCHC 32.3 32.0 - 37.0 g/dL LAB HEMETOLOGY METHOD 07/13/2025 3:13 PM [facility] RDW 14.0 11.0 - 15.0 % LAB HEMETOLOGY METHOD 07/13/2025 3:13 PM [facility] Platelets 187 130 - 400 K/mcL LAB HEMETOLOGY METHOD 07/13/2025 3:13 PM [facility] MPV 10.4 7.0 - 11.0 FL LAB HEMETOLOGY METHOD 07/13/2025 3:13 PM [facility] NRBC 0.0 <1.0 % LAB HEMETOLOGY METHOD 07/13/2025 3:13 PM [facility] NRBC Absolute 0.00 <0.10 K/mcL LAB HEMETOLOGY METHOD 07/13/2025 3:13 PM [facility] Neutrophils Relative 50.9 % LAB HEMETOLOGY METHOD 07/13/2025 3:13 PM [facility] Lymphocytes Relative 39.0 % LAB HEMETOLOGY METHOD 07/13/2025 3:13 PM [facility] Monocytes Relative 8.1 % LAB HEMETOLOGY METHOD 07/13/2025 3:13 PM [facility] Eosinophils Relative 1.3 % LAB HEMETOLOGY METHOD 07/13/2025 3:13 PM EST [facility] Basophils Relative 0.6 % LAB HEMETOLOGY METHOD 07/13/2025 3:13 PM EST [facility] Immature Granulocytes Relative 0.1 % LAB HEMETOLOGY METHOD 07/13/2025 3:13 PM EST [facility] Neutrophils Absolute 3.47 1.50 - 7.00 K/mcL LAB HEMETOLOGY METHOD 07/13/2025 3:13 PM EST [facility] Lymphocytes Absolute 2.66 1.00 - 5.00 K/mcL LAB HEMETOLOGY METHOD 07/13/2025 3:13 PM EST [facility] Monocytes Absolute 0.55 0.20 - 1.00 K/mcL LAB HEMETOLOGY METHOD 07/13/2025 3:13 PM EST [facility] Eosinophils Absolute 0.09 0.00 - 0.50 K/mcL LAB HEMETOLOGY METHOD 07/13/2025 3:13 PM EST [facility] Basophils Absolute 0.04 0.00 - 0.20 K/mcL LAB HEMETOLOGY METHOD 07/13/2025 3:13 PM EST [facility] Immature Granulocytes Absolute 0.01 0.00 - 0.03 K/mcL LAB HEMETOLOGY METHOD 07/13/2025 3:13 PM EST [facility] Blood Venous blood specimen / Unknown Venipuncture / Unknown 07/13/2025 1:48 PM EST 07/13/2025 1:48 PM EST us Art Martinez NP LAB BLOOD ORDERABLES Gris meier Result [facility] [address] [place] [address], * Vitamin D 25 hydroxy (07/13/2025 1:48 PM EST) Vit D, 25-Hydroxy 53.6 30.0 - 80.0 ng/mL 07/13/2025 6:47 PM [facility] Blood Venous blood specimen / Unknown Venipuncture / Unknown 07/13/2025 1:48 PM EST 07/13/2025 1:48 PM EST us Art Martinez NP LAB BLOOD ORDERABLES Gris l Result [facility] [address] [place] [address], [place] [phone] * (ABNORMAL) Comprehensive metabolic panel (07/13/2025 1:48 PM EST) Sodium 142 133 - 145 mmol/L 07/13/2025 6:45 PM [facility] Potassium 4.3 3.5 - 5.5 mmol/L 07/13/2025 6:45 PM [facility] Chloride 107 96 - 110 mmol/L 07/13/2025 6:45 PM [facility] CO2 24 21 - 32 mmol/L 07/13/2025 6:45 PM [facility] Anion Gap 11 3 - 11 07/13/2025 6:45 PM [facility] Glucose 53(L) 70 - 100 mg/dL 07/13/2025 6:45 PM [facility] BUN 11 5 - 25 mg/dL 07/13/2025 6:45 PM [facility] Creatinine 0.84 0.50 - 1.10 mg/dL 07/13/2025 6:45 PM [facility] eGFR 69 >=60 mL/min/1. 73m2 07/13/2025 6:45 PM [facility] Comment:Calculation based on the Chronic Kidney Disease Epidemiology Collaboration (CKD-EPI) equation refit without adjustment for race. BUN/Creatinine Ratio 13.1 07/13/2025 6:45 PM [facility] Calcium 9.7 8.5 - 10.5 mg/dL 07/13/2025 6:45 PM [facility] AST (SGOT) 24 10 - 42 unit/L 07/13/2025 6:45 PM [facility] ALT (SGPT) 17 10 - 60 unit/L 07/13/2025 6:45 PM [facility] Alkaline Phosphatase 71 42 - 121 unit/L 07/13/2025 6:45 PM [facility] Total Protein 5.5(L) 6.0 - 8.0 g/dL 07/13/2025 6:45 PM [facility] Albumin 4.0 3.2 - 5.0 g/dL 07/13/2025 6:45 PM [facility] Total Bilirubin 0.4 0.0 - 1.4 mg/dL 07/13/2025 6:45 PM [facility] Blood Venous blood specimen / Unknown Venipuncture / Unknown 07/13/2025 1:48 PM EST 07/13/2025 1:48 PM EST Art Martinez DEVELOPER [employer] LAB BLOOD ORDERABLES Gris l Result [facility] [address] [place] [address], * External MRI Report (06/21/2025) Only the most recent of2 resultswithin the time period is included. Anatomical Region Laterality Modality Magnetic Resonan ce us Provider [facility] IMG MRI PROCEDURES Final Result * XR Lumbar Spine 4+ Views (05/11/2025 3:51 PM EDT) Anatomical Region Laterality Modality Spine, L-spine Radiographic Cinthya ging 05/11/2025 7:57 PM EDT Impressions 05/11/2025 7:58 PM EDT Moderate degenerative changes of the lumbar spine. -------- FINAL REPORT -------- Dictated By: Kathy Villafana Dictated Date: 05/11/2025 19:57 ET Assigned Physician: Kathy Villafana Reviewed and Electronically Signed By: Kathy Villafana Signed Date: 05/11/2025 19:58 ET Workstation ID: [id number] Transcribed By: Self Edit Transcribed Date: 05/11/2025 [...] overlying the right upper quadrant. Procedure Note Katyh Villafana MD - 05/11/2025 HISTORY: back pain [...] Signed Date: 05/11/2025 19:58 ET Workstation ID: [id number] Transcribed By: Self Edit Transcribed Date: 05/11/2025 19:57 ET us Dionicio VOIEDO IMG XR PROCEDURES Final Resul t * [...] Signed Date: 05/11/2025 20:02 ET Workstation ID: [id number] Transcribed By: Self Edit Transcribed Date: 05/11/2025 [...] Signed Date: 05/11/2025 20:02 ET Workstation ID: [id number] Transcribed By: Self Edit Transcribed Date: 05/11/2025 20:00 ET Dionicio OVIEDO IMG XR PROCEDURES Final [...] Signed Date: 05/11/2025 20:00 ET Workstation ID: [id number] Transcribed By: Self Edit Transcribed Date: 05/11/2025 [...] Signed Date: 05/11/2025 20:00 ET Workstation ID: [id number] Transcribed By: Self Edit Transcribed Date: 05/11/2025 19:58 ET Darius Montoya DEVELOPER [employer] IMG XR PROCEDURES Final Result * Home Health Order (05/11/2025) us Provider [facility] Gris l Result * Lipid panel with reflex to direct LDL (12/04/2024 10:35 AM EDT) Cholesterol 132 0 - 200 mg/dL LAB CHEMISTRY METHOD 12/04/2024 2:25 PM EDT [facility] Triglycerides 111 0 - 150 mg/dL LAB CHEMISTRY METHOD 12/04/2024 2:25 PM EDT [facility] HDL 67 >=40 mg/dL LAB CHEMISTRY METHOD 12/04/2024 2:25 PM EDT [facility] LDL Calculated 43 0 - 100 mg/dL LAB CHEMISTRY METHOD 12/04/2024 2:25 PM EDT [facility] VLDL Cholesterol Theo 22.2 mg/dL LAB CHEMISTRY METHOD 12/04/2024 2:25 PM [facility] Non HDL Chol. (LDL+VLDL) 65 <145 mg/dL LAB CHEMISTRY METHOD 12/04/2024 2:25 PM EDT [facility] Chol/HDL Ratio 2.0 0.0 - 4.4 LAB CHEMISTRY METHOD 12/04/2024 2:25 PM EDT [facility] Blood Venous blood specimen / Unknown Venipuncture / Unknown 12/04/2024 10:35 AM EDT 12/04/2024 10:35 AM EDT us Kiya Balbuena NP LAB BLOOD ORDERABLES Final Resu lt [facility] ([facility]) [facility] [address] [place] [address], * DXA BONE DENSITY STUDY 1+ SITS [...] (World Health Organization Fracture Risk Assessment) [facility] Department of Internal Medicine recommends [...] alternative screening schedule based on will Schaefer., [facility] September 13, 2011 for [...] years. (World HealthOrganization Fracture Risk Assessment) [facility] Department of Internal Medicine recommendsusing [...] MEDICARE ADVANTAGE MEDICAID - [place] Care Teams Engineering Operations Leader Relationship Specialty Start Date End Date Feroz Reyes MD [address] [place] [id number] PCP - General Internal Medicine 09/29/20
--- OUTSIDE RECORDS SUMMARY | 2025-07-29 12:18 | XMS_ITS | Encounter Summary ---
Author Organization [facility] Prior to 06/26/2024 Address [address] [place] [address] Care Team Providers Care Marketing Technology Coordinator Name Role Phone Feroz Reyes MD Primary Care Provider Artemio Blunt MD Unavailable Unavailable Cornell Castellon MD Unavailable UnavailTamy Gonzales Unavailable Unavailable Oscar Valiente MD Unavailable Unavailable Bi Frank MD Unavailable Unavailable Encounter Details Date Type Department Care Team Description 10/12/2022 Talent Development Consultant Report Medical Records [address] [place] [id number] Dennis Topete PA-C Social History Tobacco Use [...] week 03/14/2022 How often do you attend [facility] or alevism services? Never 03/14/2022 Do you belong to [...] on filedocumented in this encounter Care Teams Marketing Technology Coordinator Relationship Specialty Start Date End Date Feroz Reyes MD [address] [place] [address] PCP - General Internal Medicine 09/29/20 Artemio Blunt MD [address] [place] [phone] Specialist Gastroenterology 03/14/22 Cornell Castellon MD [address] [place] [phone] Specialist Urology 03/14/22 Tamy Chandler FNP [address] [place] [phone] Nurse Practitioner Cardiology 03/14/22 Oscar Valiente MD [address] [place] [phone] Specialist Cardiology 03/14/22 Bi Frank MD [address] [place] [address] Specialist Ophthalmology 03/14/22 documented as of this encounter
--- OUTSIDE RECORDS SUMMARY | 2025-07-29 12:18 | XMS_ITS | Encounter Summary ---
Author Organization [facility] Prior to 06/26/2024 Address [address] [place] [address] Care Team Providers Care Bench Worker Binding Name Role Phone Feroz Reyes MD Primary Care Provider [phone] Artemio Blunt MD Unavailable Unavailable Cornell Castellon MD Unavailable UnavailTamy Gonzales Unavailable Unavailable Oscar Valiente MD Unavailable Unavailable Bi Frank MD Unavailable Unavailable Reason for Visit * Reason Onset Date Comments TEST RESULTS 12/07/2020 Encounter Details Date Type Department Care Team Description 12/07/2020 Telephone Adult Medicine [address] [address] Ro Price PA-C [address] [place] [address] TEST RESULTS Social History Tobacco Use Types [...] often do you attend chur ch or confucianism services? Never 03/14/2022 Do you belong to any clubs o r organizations such as anglican groups, unions, fraternal or athletic groups, or [...] place to sleep or slept in a long-term (including now)? No 03/14/2022 Sex Assigned at [...] for pt to call office back. Ext [phone] or route to B side. * Telephone [...] on filedocumented in this encounter Care Teams Bench Worker Binding Relationship Specialty Start Date End Date Feroz Reyes MD [address] [place] [address] PCP - General Internal Medicine 09/29/20 Artemio Blunt MD [address] [place] [address] Specialist Gastroenterology 03/14/22 Cornell Castellon MD [address] [place] [address] Specialist Urology 03/14/22 Tamy Chandler FNP [address] [place] [address] Nurse Practitioner Cardiology 03/14/22 Oscar Valiente MD [address] [place] [address] Specialist Cardiology 03/14/22 Bi Frank MD [address] [place] [address] Specialist Ophthalmology 03/14/22 documented as of this encounter
--- OUTSIDE RECORDS SUMMARY | 2025-07-29 12:18 | XMS_ITS | Encounter Summary ---
Author Organization [facility] Prior to 06/26/2024 Address [address] [place] [address] Care Team Providers Care Career Technical Education Instructor Name Role Phone Feroz Reyes MD Primary Care Provider [phone] Artemio Blunt MD Unavailable Unavailable Cornell Castellon MD Unavailable UnavailTamy Gonzales Unavailable Unavailable Oscar Valiente MD Unavailable Unavailable Bi Frank MD Unavailable Unavailable Reason for Visit * Reason Onset Date Comments Sba Business Development Officer Feedback 02/15/2021 Nephrology Encounter Details Date Type Department Care Team Description 02/15/2021 Telephone Adult Medicine [address] [address] Feroz Reyes MD [address] [place] [id number] Sba Business Development Officer Feedback (Nephrology) Social History Tobacco Use Types [...] often do you attend chur ch or sikh services? Never 03/14/2022 Do you belong to any clubs o r organizations such as congregation groups, unions, fraternal or athletic groups, or [...] have not received anything. Please fax to [phone] documented in this encounter Plan of Treatment Not on file documented as of this encounter Visit Diagnoses Not on filedocumented in this encounter Care Teams Career Technical Education Instructor Relationship Specialty Start Date End Date Feroz Reyes MD [address] [place] [phone] PCP - General Internal Medicine 09/29/20 Artemio Blunt MD [address] [place] [address] Specialist Gastroenterology 03/14/22 Cornell Castellon MD [address] [place] [address] Specialist Urology 03/14/22 Tamy Chandler FNP [address] [place] [address] Nurse Practitioner Cardiology 03/14/22 Oscar Valiente MD [address] [place] [address] Specialist Cardiology 03/14/22 Bi Frank MD [address] [place] [address] Specialist Ophthalmology 03/14/22 documented as of this encounter
--- OUTSIDE RECORDS SUMMARY | 2025-07-29 12:18 | XMS_ITS | Encounter Summary ---
Author Organization [facility] Prior to 06/26/2024 Address [address] [place] [address] Care Team Providers Care Clinical Rehab Specialist Name Role Phone Feroz Reyes MD Primary Care Provider [phone] Artemio Blunt MD Unavailable Unavailable Cornell Castellon MD Unavailable UnavailTamy Gonzales Unavailable Unavailable Oscar Valiente MD Unavailable Unavailable Bi Frank MD Unavailable Unavailable Encounter Details Date Type Department Care Team Description 02/10/2021 Manager Technical Report Medical Records [address] [place] [address] Abstract, Provider Social History Tobacco Use Types [...] often do you attend chur ch or latter-day services? Never 03/14/2022 Do you belong to any clubs o r organizations such as rastafari groups, unions, fraternal or athletic groups, or [...] on filedocumented in this encounter Care Teams Clinical Rehab Specialist Relationship Specialty Start Date End Date Feroz Reyes MD [address] [place] [address] PCP - General Internal Medicine 09/29/20 Artemio Blunt MD [address] [place] [address] Specialist Gastroenterology 03/14/22 Cornell Castellon MD [address] [place] [address] Specialist Urology 03/14/22 Tamy Chandler FNP [address] [place] [address] Nurse Practitioner Cardiology 03/14/22 Oscar Valiente MD [address] [place] [address] Specialist Cardiology 03/14/22 Bi Frank MD [address] [place] [address] Specialist Ophthalmology 03/14/22 documented as of this encounter
--- OUTSIDE RECORDS SUMMARY | 2025-07-29 12:18 | XMS_ITS | Encounter Summary ---
Author Organization [facility] Prior to 06/26/2024 Address [address] [place] [address] Care Team Providers Care Corn Breeder Name Role Phone Feroz Reyes MD Primary Care Provider [phone] Artemio Blunt MD Unavailable Unavailable Cornell Castellon MD Unavailable UnavailTamy Gonzales Unavailable Unavailable Oscar Valiente MD Unavailable Unavailable Bi Frank MD Unavailable Unavailable Encounter Details Date Type Department Care Team Description 12/27/2023 Philanthropy Officer Report Medical Records [address] [place] [address] Social History Tobacco Use Types Packs/Day Years [...] on filedocumented in this encounter Care Teams Corn Breeder Relationship Specialty Start Date End Date Feroz Reyes MD [address] [place] [address] PCP - General Internal Medicine 09/29/20 Artemio Blunt MD [address] [place] [address] Specialist Gastroenterology 03/14/22 Cornell Castellon MD [address] [place] [address] Specialist Urology 03/14/22 Tamy Chandler FNP [address] [place] [address] Nurse Practitioner Cardiology 03/14/22 Oscar Valiente MD [address] [place] [address] Specialist Cardiology 03/14/22 Bi Frank MD [address] [place] [address] Specialist Ophthalmology 03/14/22 documented as of this encounter
--- OUTSIDE RECORDS SUMMARY | 2025-07-29 12:18 | XMS_ITS | Encounter Summary ---
Author Organization [facility] Prior to 06/26/2024 Address [address] [place] [address] Care Team Providers Care Identification Technician Name Role Phone Feroz Reyes MD Primary Care Provider [phone] Artemio Blunt MD Unavailable Unavailable Cornell Castellon MD Unavailable UnavailTamy Gonzales Unavailable Unavailable Oscar Valiente MD Unavailable Unavailable Bi Frank MD Unavailable Unavailable Encounter Details Date Type Department Care Team Description 11/07/2020 Pattern And Chain Maker Report Medical Records [address] [place] [address] Radha Malin MD [address] [place] [address] [address] [place] [address] Social History Tobacco Use Types Packs/Day Years [...] week 03/14/2022 How often do you attend [facility] or advent services? Never 03/14/2022 Do you [...] on filedocumented in this encounter Care Teams Identification Technician Relationship Specialty Start Date End Date Feroz Reyes MD [address] [place] [address] PCP - General Internal Medicine 09/29/20 Artemio Blunt MD [address] [place] [address] Specialist Gastroenterology 03/14/22 Cornell Castellon MD [address] [place] [address] Specialist Urology 03/14/22 Tamy Chandler FNP [address] [place] [address] Nurse Practitioner Cardiology 03/14/22 Oscar Valiente MD [address] [place] [address] Specialist Cardiology 03/14/22 Bi Frank MD [address] [place] [address] Specialist Ophthalmology 03/14/22 documented as of this encounter
--- OUTSIDE RECORDS SUMMARY | 2025-07-29 12:18 | XMS_ITS | Encounter Summary ---
Author Organization [facility] Prior to 06/26/2024 Address [address] [place] [address] Care Team Providers Care Faucet Polisher Name Role Phone Feroz Reyes MD Primary Care Provider [phone] Artemio Blunt MD Unavailable Unavailable Cornell Castellon MD Unavailable UnavailTamy Gonzales Unavailable Unavailable Oscar Valiente MD Unavailable Unavailable Bi Frank MD Unavailable Unavailable Encounter Details Date Type Department Care Team Description 10/18/2023 Hospital Medical Records [address] [place] [address] Reynold Jimenez Social History Tobacco Use Types [...] week 03/14/2022 How often do you attend [facility] or protestant services? Never 03/14/2022 Do you [...] on filedocumented in this encounter Care Teams Faucet Polisher Relationship Specialty Start Date End Date Feroz Reyes MD [address] [place] [address] PCP - General Internal Medicine 09/29/20 Artemio Blunt MD [address] [place] [address] Specialist Gastroenterology 03/14/22 Cornell Castellon MD [address] [place] [address] Specialist Urology 03/14/22 Tamy Chandler FNP [address] [place] [address] Nurse Practitioner Cardiology 03/14/22 Oscar Valiente MD [address] [place] [address] Specialist Cardiology 03/14/22 Bi Frank MD [address] [place] [address] Specialist Ophthalmology 03/14/22 documented as of this encounter
--- OUTSIDE RECORDS SUMMARY | 2025-07-29 12:18 | XMS_ITS | Encounter Summary ---
Author Organization [facility] Prior to 06/26/2024 Address [address] [place] [address] Care Team Providers Care Technical Implementation Lead Name Role Phone Feroz Reyes MD Primary Care Provider [phone] Artemio Blunt MD Unavailable Unavailable Cornell Castellon MD Unavailable UnavailTamy Gonzales Unavailable Unavailable Oscar Valiente MD Unavailable Unavailable Bi Frank MD Unavailable Unavailable Encounter Details Date Type Department Care Team Description 09/04/2022 Greenskeeper Report Medical Records [address] [place] [address] Cornell Castellon MD Social History Tobacco Use [...] How often do you attend chur or rastafari services? Never 03/14/2022 Do you belong to any clubs o r organizations such as gnosticist groups, unions, fraternal or athletic groups, or [...] on filedocumented in this encounter Care Teams Technical Implementation Lead Relationship Specialty Start Date End Date Feroz Reyes MD [address] [place] [address] PCP - General Internal Medicine 09/29/20 Artemio Blunt MD [address] [place] [address] Specialist Gastroenterology 03/14/22 Cornell Castellon MD [address] [place] [address] Specialist Urology 03/14/22 Tamy Chandler FNP [address] [place] [address] Nurse Practitioner Cardiology 03/14/22 Oscar Valiente MD [address] [place] [address] Specialist Cardiology 03/14/22 Bi Frank MD [address] [place] [address] Specialist Ophthalmology 03/14/22 documented as of this encounter
--- OUTSIDE RECORDS SUMMARY | 2025-07-29 12:18 | XMS_ITS | Encounter Summary ---
Author Organization [facility] Prior to 06/26/2024 Address [address] [place] [address] Care Team Providers Care Doper Name Role Phone Feroz Reyes MD Primary Care Provider [phone] Artemio Blunt MD Unavailable Unavailable Cornell Castellon MD Unavailable UnavailTamy Gonzales Unavailable Unavailable Oscar Valiente MD Unavailable Unavailable Bi Frank MD Unavailable Unavailable Reason for Visit * Reason Onset Date Comments Faxed Refill 01/31/2021 Encounter Details Date Type Department Care Team Description 01/31/2021 Refill Adult Medicine [address] [address] Feroz Reyes MD [address] [place] [address] Faxed Refill Social History Tobacco Use Types Packs/Day Years [...] often do you attend chur ch or islam services? Never 03/14/2022 Do you [...] encounter Miscellaneous Notes * Telephone Encounter - Ondina Polk C.M.A. - 01/31/2021 1:21 PM EDT Janet 01/18/2021 new appt 02/03/2021 Lab Results Component Value Date NA 140 01/18/2021 K 4.1 01/18/2021 CO2 26 01/18/2021 CL 108 01/18/2021 BUN 16 01/18/2021 CREAT 0.84 01/18/2021 GLU 104 01/18/2021 CA 9.5 01/18/2021 GFR > 60 01/18/2021 * Telephone Encounter - Maral Alejo - 01/31/2021 8:14 AM EDT Patient would like script to be: E-PRESCRIBED/FAXED TO PHARMACY WHEN WAS THE PATIENT'S LAST APPOINTMENT IN ADULT MEDICINE? 01/18/21 WHEN WAS THE LAST TIME THE PATIENT SAW THEIR PCP? Same as above Does patient have an upcoming appointment? Yes 02/03/21 (THE MEDICATION REQUESTED IS ON THE MED LIST ABOVE) All of the medications requested were on the CURRENT MEDS list Did you check the Pharmacy information above?: YES Patient wants: 30 -day supply Is this a mail order prescription request ? NO If the refill is from a FAXED refill request what is the RX # listed on the fax? N/A Patients current insurance carrier is: Payor: [employer] [facility] / Plan: [employer] $[employer] [id number] / Product Type: [employer] [id number] documented in this encounter Plan of Treatment Not on file documented as of this encounter Visit Diagnoses Not on filedocumented in this encounter Care Teams Doper Relationship Specialty Start Date End Date Feroz Reyes MD [address] [place] [address] PCP - General Internal Medicine 09/29/20 Artemio Blunt MD [address] [place] [address] Specialist Gastroenterology 03/14/22 Cornell Castellon MD [address] [place] [address] Specialist Urology 03/14/22 Tamy Chandler FNP [address] [place] [address] Nurse Practitioner Cardiology 03/14/22 Oscar Valiente MD [address] [place] [address] Specialist Cardiology 03/14/22 Bi Frank MD [address] [place] [address] Specialist Ophthalmology 03/14/22 documented as of this encounter
--- OUTSIDE RECORDS SUMMARY | 2025-07-29 12:19 | XMS_ITS | Encounter Summary ---
Author Organization [facility] Prior to 06/26/2024 Address [address] [place] [address] Care Team Providers Care Manager Patient Name Role Phone Feroz Reyes MD Primary Care Provider [phone] Artemio Blunt MD Unavailable Unavailable Cornell Castellon MD Unavailable UnavailTamy Gonzales Unavailable Unavailable Oscar Valiente MD Unavailable Unavailable Bi Frank MD Unavailable Unavailable Encounter Details Date Type Department Care Team Description 06/27/2021 Color Control Operator Report Medical Records [address] [place] [address] Cornell Castellon MD Social History Tobacco Use [...] often do you attend chur ch or yazdanism services? Never 03/14/2022 Do you [...] filedocumented in this encounter Care Teams Manager Patient Relationship Specialty Start Date End Date Feroz Reyes MD [address] [place] [address] PCP - General Internal Medicine 09/29/20 Artemio Blunt MD [address] [place] [address] Specialist Gastroenterology 03/14/22 Cornell Castellon MD [address] [place] [address] Specialist Urology 03/14/22 Tamy Chandler FNP [address] [place] [address] Nurse Practitioner Cardiology 03/14/22 Oscar Valiente MD [address] [place] [address] Specialist Cardiology 03/14/22 Bi Frank MD [address] [place] [address] Specialist Ophthalmology 03/14/22 documented as of this encounter
--- OUTSIDE RECORDS SUMMARY | 2025-07-29 12:19 | XMS_ITS | Encounter Summary ---
Author Organization [facility] Prior to 06/26/2024 Address [address] [place] [address] Care Team Providers Care Supervisor Finishing Department Name Role Phone Ferzo Reyes MD Primary Care Provider [phone] Artemio Blunt MD Unavailable Unavailable Cornell Castellon MD Unavailable UnavailTamy Gonzales Unavailable Unavailable Oscar Valiente MD Unavailable Unavailable Bi Frank MD Unavailable Unavailable Encounter Details Date Type Department Care Team Description 05/10/2021 Tub Operator Report Medical Records [address] [place] [address] Tamy Chandler FNP Social History Tobacco Use [...] How often do you attend chur or faith services? Never 03/14/2022 Do you belong to any clubs o r organizations such as worship groups, unions, fraternal or athletic groups, or [...] filedocumented in this encounter Care Teams Supervisor Finishing Department Relationship Specialty Start Date End Date Feroz Reyes MD [address] [place] [address] PCP - General Internal Medicine 09/29/20 Artemio Blunt MD [address] [place] [address] Specialist Gastroenterology 03/14/22 Cornell Castellon MD [address] [place] [address] Specialist Urology 03/14/22 Tamy Chandler FNP [address] [place] [address] Nurse Practitioner Cardiology 03/14/22 Oscar Valiente MD [address] [place] [address] Specialist Cardiology 03/14/22 Bi Frank MD [address] [place] [address] Specialist Ophthalmology 03/14/22 documented as of this encounter
--- OUTSIDE RECORDS SUMMARY | 2025-07-29 12:19 | XMS_ITS | Encounter Summary ---
Author Organization [facility] Prior to 06/26/2024 Address [address] [place] [address] Care Team Providers Care Vineyard Tender Name Role Phone Feroz Reyes MD Primary Care Provider [phone] Artemio Blutn MD Unavailable Unavailable Cornell Castellon MD Unavailable UnavailTamy Gonzales Unavailable Unavailable Oscar Valiente MD Unavailable Unavailable Bi Frank MD Unavailable Unavailable Encounter Details Date Type Department Care Team Description 02/21/2024 Night Triage Doc Medical Records [address] [place] [address] Abstract, Provider Social History Tobacco Use Types [...] week 03/14/2022 How often do you attend [facility] or jew services? Never 03/14/2022 Do you belong to any clubs o r organizations such as jewish groups, unions, fraternal or athletic groups, or [...] on filedocumented in this encounter Care Teams Vineyard Tender Relationship Specialty Start Date End Date Feroz Reyes MD [address] [place] [address] PCP - General Internal Medicine 09/29/20 Artemio Blunt MD [address] [place] [address] Specialist Gastroenterology 03/14/22 Cornell Castellon MD [address] [place] [address] Specialist Urology 03/14/22 Tamy Chandler FNP [address] [place] [address] Nurse Practitioner Cardiology 03/14/22 Oscar Valiente MD [address] [place] [address] Specialist Cardiology 03/14/22 Bi Frank MD [address] [place] [address] Specialist Ophthalmology 03/14/22 documented as of this encounter
--- OUTSIDE RECORDS SUMMARY | 2025-07-29 12:19 | XMS_ITS | Encounter Summary ---
Author Organization [facility] Prior to 06/26/2024 Address [address] [place] [address] Care Team Providers Care Sheet Writer Name Role Phone Feroz Reyes MD Primary Care Provider [phone] Artemio Blunt MD Unavailable Unavailable Cornell Castellon MD Unavailable UnavailTamy Gonzales Unavailable Unavailable Oscar Valiente MD Unavailable Unavailable Bi Frank MD Unavailable Unavailable Encounter Details Date Type Department Care Team Description 06/19/2021 Hospital Medical Records [address] [place] [address] Donny Pate MD Social History Tobacco Use [...] week 03/14/2022 How often do you attend [facility] or samaritan services? Never 03/14/2022 Do you [...] on filedocumented in this encounter Care Teams Sheet Writer Relationship Specialty Start Date End Date Feroz Reyes MD [address] [place] [address] PCP - General Internal Medicine 09/29/20 Artemio Blunt MD [address] [place] [address] Specialist Gastroenterology 03/14/22 Cornell Castellon MD [address] [place] [address] Specialist Urology 03/14/22 Tamy Chandler FNP [address] [place] [address] Nurse Practitioner Cardiology 03/14/22 Oscar Valiente MD [address] [place] [address] Specialist Cardiology 03/14/22 Bi Frank MD [address] [place] [address] Specialist Ophthalmology 03/14/22 documented as of this encounter
--- OUTSIDE RECORDS SUMMARY | 2025-07-29 12:19 | XMS_ITS | Encounter Summary ---
Author Organization [facility] Prior to 06/26/2024 Address [address] [place] [address] Care Team Providers Care Home Energy Consultant Name Role Phone Feroz Reyes MD Primary Care Provider [phone] Artemio Blunt MD Unavailable Unavailable Cornell Castellon MD Unavailable UnavailTamy Gonzales Unavailable Unavailable Oscar Valiente MD Unavailable Unavailable Bi Frank MD Unavailable Unavailable Reason for Visit * Reason Comments E-prescribe Rx Request Encounter Details Date Type Department Care Team Description 09/03/2021 Refill Adult Medicine [address] [address] Feroz Reyes MD [address] [place] [address] E-prescribe Rx Request Social History Tobacco Use [...] often do you attend chur ch or jainism services? Never 03/14/2022 Do you belong to any clubs o r organizations such as anabaptist groups, unions, fraternal or athletic groups, or [...] have Coronavirus / COVID-19? No / Unsure 08/04/2021 8:38 AM EST documented as of this encounter Miscellaneous Notes * Telephone Encounter - Ana Muñiz - 09/04/2021 3:06 PM EST Patient would like script to be: E-PRESCRIBED/FAXED TO PHARMACY ?? WHEN WAS THE PATIENT'S LAST APPOINTMENT IN ADULT MEDICINE? 08.16.21 ?? WHEN WAS THE LAST TIME THE PATIENT SAW THEIR PCP? Same as above ?? Does patient have an upcoming appointment? No ?? (THE MEDICATION REQUESTED IS ON THE MED LIST ABOVE) All of the medications requested were on the CURRENT MEDS list ?? Did you check the Pharmacy information above?: YES ?? Patient wants: 90 -day supply ?? Is this a mail order prescription request ? NO ?? If the refill is from a FAXED refill request what is the RX # listed on the fax? N/A ?? Patients current insurance carrier is: Payor: [employer] / Plan: HMO $0 [employer] [id number] / Product Type: HMO [id number] ?? documented in this encounter Plan of Treatment Not on file documented as of this encounter Visit Diagnoses Not on filedocumented in this encounter Care Teams Home Energy Consultant Relationship Specialty Start Date End Date Feroz Reyes MD [address] [place] [address] PCP - General Internal Medicine 09/29/20 Artemio Blunt MD [address] [place] [address] Specialist Gastroenterology 03/14/22 Cornell Castellon MD [address] [place] [address] Specialist Urology 03/14/22 Tamy Chandler FNP [address] [place] [address] Nurse Practitioner Cardiology 03/14/22 Oscar Valiente MD [address] [place] [address] Specialist Cardiology 03/14/22 Bi Frank MD [address] [place] [address] Specialist Ophthalmology 03/14/22 documented as of this encounter
--- OUTSIDE RECORDS SUMMARY | 2025-07-29 12:19 | XMS_ITS | Encounter Summary ---
Author Organization [facility] Prior to 06/26/2024 Address [address] [place] [address] Care Team Providers Care Mortgage Closing Clerk Name Role Phone Feroz Reyes MD Primary Care Provider [phone] Artemio Blunt MD Unavailable Unavailable Cornell Castellon MD Unavailable UnavailTamy Gonzales Unavailable Unavailable Oscar Valiente MD Unavailable Unavailable Bi Frank MD Unavailable Unavailable Encounter Details Date Type Department Care Team Description 04/04/2021 Stone Rigger Report Medical Records [address] [place] [address] Kenneth Elizabeth MD, MD Social History Tobacco [...] any clubs o r organizations such as hoahaoism groups, unions, fraternal or athletic groups, or [...] on filedocumented in this encounter Care Teams Mortgage Closing Clerk Relationship Specialty Start Date End Date Feroz Reyes MD [address] [place] [address] PCP - General Internal Medicine 09/29/20 Artemio Blunt MD [address] [place] [address] Specialist Gastroenterology 03/14/22 Cornell Castellon MD [address] [place] [address] Specialist Urology 03/14/22 Tamy Chandler FNP [address] [place] [address] Nurse Practitioner Cardiology 03/14/22 Oscar Valiente MD [address] [place] [address] Specialist Cardiology 03/14/22 Bi Frank MD [address] [place] [address] Specialist Ophthalmology 03/14/22 documented as of this encounter
--- OUTSIDE RECORDS SUMMARY | 2025-07-29 12:19 | XMS_ITS | Encounter Summary ---
Author Organization [facility] Prior to 06/26/2024 Address [address] [place] [address] Care Team Providers Care Procurement Services Manager Name Role Phone Feroz Reyes MD Primary Care Provider [phone] Artemio Blunt MD Unavailable Unavailable Cornell Castellon MD Unavailable UnavailTamy Gonzales Unavailable Unavailable Oscar Valiente MD Unavailable Unavailable Bi Frank MD Unavailable Unavailable Encounter Details Date Type Department Care Team Description 07/15/2021 Hospital Medical Records [address] [place] [address] Jarocho Stacy Social History Tobacco Use Types [...] week 03/14/2022 How often do you attend [facility] or worship services? Never 03/14/2022 Do you belong to any clubs o r organizations such as confucianism groups, unions, fraternal or athletic groups, or [...] on filedocumented in this encounter Care Teams Procurement Services Manager Relationship Specialty Start Date End Date Feroz Reyes MD [address] [place] [address] PCP - General Internal Medicine 09/29/20 Artemio Blunt MD [address] [place] [address] Specialist Gastroenterology 03/14/22 Cornell Castellon MD [address] [place] [address] Specialist Urology 03/14/22 Tamy Chandler FNP [address] [place] [address] Nurse Practitioner Cardiology 03/14/22 Oscar aVliente MD [address] [place] [address] Specialist Cardiology 03/14/22 Bi Frank MD [address] [place] [address] Specialist Ophthalmology 03/14/22 documented as of this encounter
--- OUTSIDE RECORDS SUMMARY | 2025-07-29 12:19 | XMS_ITS | Encounter Summary ---
Author Organization [facility] Prior to 06/26/2024 Address [address] [place] [address] Care Team Providers Care Marketing Sales Consultant Name Role Phone Feroz Reyes MD Primary Care Provider [phone] Artemio Blunt MD Unavailable Unavailable Cornell Castellon MD Unavailable UnavailTamy Gonzales Unavailable Unavailable Oscar Valiente MD Unavailable Unavailable Bi Frank MD Unavailable Unavailable Encounter Details Date Type Department Care Team Description 06/23/2021 Hospital Medical Records [address] [place] [address] Donny Pate MD Social History Tobacco Use [...] do you attend [facility] or sabianist services? Never 03/14/2022 Do you belong to any clubs o r organizations such as congregational groups, unions, fraternal or athletic groups, or [...] filedocumented in this encounter Care Teams Marketing Sales Consultant Relationship Specialty Start Date End Date Feroz Reyes MD [address] [place] [address] PCP - General Internal Medicine 09/29/20 Artemio Blunt MD [address] [place] [address] Specialist Gastroenterology 03/14/22 Cornell Castellon MD [address] [place] [address] Specialist Urology 03/14/22 Tamy Chandler FNP [address] [place] [address] Nurse Practitioner Cardiology 03/14/22 Oscar Valiente MD [address] [place] [address] Specialist Cardiology 03/14/22 Bi Frank MD [address] [place] [address] Specialist Ophthalmology 03/14/22 documented as of this encounter
--- OUTSIDE RECORDS SUMMARY | 2025-07-29 12:19 | XMS_ITS | Clinical Summary ---
Author Organization [facility] Prior to 01/23/[address] [place] [address] Care Team Providers Care Inspector Fibrous Wallboard Name Role Phone Feroz Reyes MD Primary Care Provider [phone] Social History Tobacco Use Types Packs/Day Years [...] age to complete this topic Care Teams Inspector Fibrous Wallboard Relationship Specialty Start Date End Date Feroz Reyes MD PCP - General Internal Medicine 11/08/20
--- OUTSIDE RECORDS SUMMARY | 2025-07-29 12:19 | XMS_ITS | Encounter Summary ---
Author Organization [facility] Prior to 06/26/2024 Address [address] [place] [address] Care Team Providers Care Cannoneer Name Role Phone Feroz Reyes MD Primary Care Provider [phone] Artemio Blunt MD Unavailable Unavailable Cornell Castellon MD Unavailable UnavailTamy Gonzales Unavailable Unavailable Oscar Valiente MD Unavailable Unavailable Bi Frank MD Unavailable Unavailable Reason for Visit * Reason Comments E-prescribe Rx Request Encounter Details Date Type Department Care Team Description 07/30/2021 Refill Adult Medicine [address] [address] Feroz Reyes MD [address] [place] [id number] E-prescribe Rx Request Social History Tobacco Use [...] any clubs o r organizations such as mormon groups, unions, fraternal or athletic groups, or [...] Patients current insurance carrier is: Payor: [facility] / Plan: AttorneyFee $0 [employer] [id number] / Product Type: HMO Etu-mlp-Attthde documented in this encounter Plan of Treatment Not on file documented as of this encounter Visit Diagnoses Not on filedocumented in this encounter Care Teams Cannoneer Relationship Specialty Start Date End Date Feroz Reyes MD [address] [place] [address] PCP - General Internal Medicine 09/29/20 Artemio Blunt MD [address] [place] [address] Specialist Gastroenterology 03/14/22 Cornell Castellon MD [address] [place] [address] Specialist Urology 03/14/22 Tamy Chandler FNP [address] [place] [address] Nurse Practitioner Cardiology 03/14/22 Oscar Valiente MD [address] [place] [address] Specialist Cardiology 03/14/22 Bi Frank MD [address] [place] [address] Specialist Ophthalmology 03/14/22 documented as of this encounter
--- OUTSIDE RECORDS SUMMARY | 2025-07-29 12:19 | XMS_ITS | Encounter Summary ---
Author Organization [facility] Prior to 06/26/2024 Address [address] [place] [address] Care Team Providers Care Boat Operator Name Role Phone Feroz Reyes MD Primary Care Provider [phone] Artemio Blunt MD Unavailable Unavailable Cornell Castellon MD Unavailable UnavailTamy Gonzales Unavailable Unavailable Oscar Valiente MD Unavailable Unavailable Bi Frank MD Unavailable Unavailable Encounter Details Date Type Department Care Team Description 07/31/2021 Release of Information Medical Records [address] [place] [id number] Abstract, Provider Social History Tobacco Use Types [...] often do you attend chur ch or buddhism services? Never 03/14/2022 Do you belong to [...] on filedocumented in this encounter Care Teams Boat Operator Relationship Specialty Start Date End Date Feroz Reyes MD [address] [place] [address] PCP - General Internal Medicine 09/29/20 Artemio Blunt MD [address] [place] [address] Specialist Gastroenterology 03/14/22 Cornell Castellon MD [address] [place] [address] Specialist Urology 03/14/22 Tamy Chandler FNP [address] [place] [address] Nurse Practitioner Cardiology 03/14/22 Oscar Valiente MD [address] [place] [address] Specialist Cardiology 03/14/22 Bi Frank MD [address] [place] [address] Specialist Ophthalmology 03/14/22 documented as of this encounter
--- OUTSIDE RECORDS SUMMARY | 2025-07-29 12:19 | XMS_ITS | Encounter Summary ---
Author Organization [facility] Prior to 06/26/2024 Address [address] [place] [address] Care Team Providers Care Media Account Executive Name Role Phone Feroz Reyes MD Primary Care Provider [phone] Artemio Blunt MD Unavailable Unavailable Cornell Castellon MD Unavailable UnavailTamy Gonzales Unavailable Unavailable Oscar Valiente MD Unavailable Unavailable Bi Frank MD Unavailable Unavailable Encounter Details Date Type Department Care Team Description 04/26/2023 Medical Health Researcher Report Medical Records [address] [place] [id number] Dennis Topete PA-C Social History Tobacco Use [...] How often do you attend [facility] or faith services? Never 03/14/2022 Do you belong to any clubs o r organizations such as nondenominational groups, unions, fraternal or athletic groups, or [...] on filedocumented in this encounter Care Teams Media Account Executive Relationship Specialty Start Date End Date Feroz Reyes MD [address] [place] [address] PCP - General Internal Medicine 09/29/20 Artemio Blunt MD [address] [place] [address] Specialist Gastroenterology 03/14/22 Cornell Castellon MD [address] [place] [address] Specialist Urology 03/14/22 Tamy Chandler FNP [address] [place] [address] Nurse Practitioner Cardiology 03/14/22 Oscar Valiente MD [address] [place] [address] Specialist Cardiology 03/14/22 Bi Frank MD [address] [place] [address] Specialist Ophthalmology 03/14/22 documented as of this encounter
== END 2025-07-29 10:40 | disposition home or self-care (01) ==
LOC: HO.HSM 10:13
PROVIDERS: PCP Internal Medicine; Visit Provider Registered Nurse
DX: H93.13 Tinnitus, bilateral (principal); M54.2 Cervicalgia; M54.9 Dorsalgia, unspecified; G89.29 Other chronic pain; I67.89 Other cerebrovascular disease
CPT/HCPCS: 99214

== ENCOUNTER → 2025-07-29 10:13 | Outpatient (BNVA) | payer OTHER, SELFPAY | PROVIDERS: PCP Internal Medicine; Visit Provider Registered Nurse | DX: H93.13 Tinnitus, bilateral (principal); M54.2 Cervicalgia; G89.29 Other chronic pain; I67.89 Other cerebrovascular disease; I10 Essential (primary) hypertension; Z79.899 Other long term (current) drug therapy | CPT/HCPCS: 99212 ==

== ENCOUNTER 2025-08-11 11:07 | Observation (INO) | payer OTHER, MEDICAID, SELFPAY ==
[2025-08-11] VITALS (7 sets, daily range): BP systolic 111–153; BP diastolic 48–64; PULSE 56–76; RESP 14–19; TEMP 36.6–37.1; O2SAT 96–100; BMI 25.5
--- NOTE | ~2025-08-11 | CT_ITS ---
EXAMINATION: CTA NECK WITH CONTRAST (STROKE) CTA BRAIN WITH CONTRAST (STROKE) EXAMINATION: CT ANGIOGRAM HEAD AND NECK CLINICAL INFORMATION: Left arm and leg weakness COMPARISON: 08/15/2024 and 08/15/2020 TECHNIQUE: Noncontrast axial imaging of the head was performed. This was followed by test bolus sequences and head and neck intravenous bolus administration of 70mL of Omnipaque 350. Helical imaging was performed in the axial plane from the aortic arch to the skull vertex. The data was processed at the anesthesiology technologist's workstation for generation of MIP sequences. Angled MIPs and volume rendered reformatted images were also generated at an offline 3D workstation. Stenoses are assessed in accordance with NASCET criteria unless otherwise indicated. This CT examination was performed using dose optimization techniques as appropriate, variously including the following: *Automated exposure control *Adjustment of mA and/or kV according to patient size (this includes techniques or standardized protocols for targeted exams where dose is matched to indication/reason for exam; i.e. extremities or head) *Use of iterative reconstruction technique FINDINGS: Motion mildly degrades the study. NECK CTA: -AORTIC ARCH: Normal in caliber. Mild atheromatous calcification. Two-vessel branching pattern, bovine arch. -GREAT VESSEL ORIGINS: Widely patent. No stenosis. -RIGHT COMMON CAROTID ARTERY: Normal in course and caliber to the level of the bifurcation. -CERVICAL RIGHT INTERNAL CAROTID ARTERY: Mild atherosclerotic calcification is present in the carotid bulb. -LEFT COMMON CAROTID ARTERY: Normal in course and caliber to the level of the bifurcation. -CERVICAL LEFT INTERNAL CAROTID ARTERY: Moderate calcific atherosclerotic disease of the carotid bulb and proximal internal carotid artery is similar to the prior. -CERVICAL RIGHT VERTEBRAL ARTERY: Codominant. Focal atherosclerotic calcification is present at the origin. Normal in course and caliber into the skull base. -CERVICAL LEFT VERTEBRAL ARTERY: Codominant. Mild arthritic calcification is present at the origin. Normal in course and caliber into the skull base. OTHER, SOFT TISSUES: -No lymphadenopathy or mass. No abnormal fluid collection or soft tissue swelling. -Multiseptated cystic and solid nodule in the left thyroid gland is stable since 2019. -Imaged superior mediastinal structures normal. -Imaged lung apices clear. CTA OF THE BRAIN: -INTRACRANIAL INTERNAL CAROTID ARTERIES: No focal stenosis or occlusion. Mild multifocal arthritic ossifications are similar to the prior. -RIGHT ANTERIOR CEREBRAL ARTERY: Normal A1 segment.. Normal arborization of the distal segments. -LEFT ANTERIOR CEREBRAL ARTERY: Normal A1 segment.. Normal arborization of the distal segments. -ANTERIOR COMMUNICATING ARTERY: Present. -RIGHT MIDDLE CEREBRAL ARTERY: Normal M1 segment of the MCA without focal stenosis or occlusion. Normal bifurcation. Normal arborization of the distal segments. -LEFT MIDDLE CEREBRAL ARTERY: Normal M1 segment of the MCA without focal stenosis or occlusion. Normal bifurcation. Normal arborization of the distal segments. -RIGHT VERTEBRAL ARTERY V4: Normal in course and caliber. -LEFT VERTEBRAL ARTERY V4: Normal in course and caliber. -BASILAR ARTERY: Normal without focal stenosis or occlusion. Normal appearance of the proximal superior cerebellar arteries. Normal basilar tip. -RIGHT POSTERIOR CEREBRAL ARTERY: Normal P1 segment. There is focal narrowing, less than 50%, at the origin of the P2P division, unchanged. -LEFT POSTERIOR CEREBRAL ARTERY: Normal P1 segment. No hemodynamically significant stenosis. -POSTERIOR COMMUNICATING ARTERIES: Right is not seen. Left appears intact. Normal opacification of the superior sagittal, straight, transverse, and sigmoid sinuses. No venous thrombosis. No space-occupying hemorrhage or definite evolving infarct. CT/CT angio head neck STROKE IMPRESSION: CTA NECK: No hemodynamically significant stenosis, stable exam. CTA HEAD: No hemodynamically significant stenosis, stable exam. Results Delivered via [facility] to Dr. Villanueva at 12:10 pm EST. Electronically signed by: Mike Gambino MD 08/11/2025 12:11 PM EST RP
--- NOTE | ~2025-08-11 | CT_ITS ---
EXAMINATION: CT HEAD WITHOUT IV CONTRAST STROKE HISTORY: Left arm and leg weakness rule out stroke. TECHNIQUE: Unenhanced helical CT of the head was performed per standard departmental protocol. Coronal and sagittal reformats of the head were also evaluated. One or more of the following techniques was used for dose reduction: Automated exposure control, adjustment of the mA and/or kV according to patient size, use of iterative reconstruction technique. DLP: 615 mGy-cm COMPARISON: Previous head CT November 2024 FINDINGS: BRAIN: There is no evidence of an extra-axial collection. There is no evidence of intra or extra-axial hemorrhage. The ventricles and extra-axial CSF spaces are appropriate. There is mild nonspecific periventricular white matter change. No mass, mass effect or infarct. There is evidence of mild atherosclerotic disease. No dense vessel sign is seen. SINUSES: The visualized paranasal sinuses are clear. The mastoid air cells and middle ear cavities are well pneumatized. ORBITS: The visualized orbits are unremarkable. BONES/SOFT TISSUES: The extracranial soft tissues are unremarkable. The calvarium is intact. No suspicious lytic or sclerotic lesions. CT/CT head for STROKE IMPRESSION: No acute intracranial abnormality. Findings were communicated to Demetrius Perez by telephone 08/11/2025 at 11:30 AM. Electronically signed by: Dionna Albright MD 08/11/2025 11:34 AM [facility]
--- NOTE | 2025-08-11 11:13 | ECG_ITS ---
Test Reason : ?STROKE Blood Pressure : */* mmHG Vent. Rate : 60 BPM Atrial Rate : 60 BPM P-R Int : 196 ms QRS Dur : 70 ms QT Int : 424 ms P-R-T Axes : 57 40 69 degrees QTcB Int : 424 ms Normal sinus rhythm Normal ECG When compared with ECG of 05-Apr-2025 18:34, No significant change was found Referred By: Demetrius Villanueva Electronically Signed By: Tyson Kirby
[2025-08-11 11:15] LABS: Prothrombin Time Whole Bld POC 12.2 sec (11.1-13.5); ~PT, ~INR - Anti Coag Clinic 1.0 (0.9-1.1)
[2025-08-11 11:16] LABS: Glucose, Whole Blood 88 mg/dL (60-115)
--- NOTE | 2025-08-11 11:27 | ED.NEUROSD ---
HPI - Neuro Symptoms/Deficit General Chief Complaint: Stroke Stated Complaint: ?STROKE,L ARM/LEG NIMB/TINGLY/WEAK,-THINNER Time Seen by Provider: 08/11/25 11:10 Source: patient and EMS Mode of arrival: EMS Limitations: no limitations History of Present Illness ED Provider: Dr. Demetrius Villanueva HPI Narrative: 84-year-old female with a history of hyperlipidemia, paresthesias, pulmonary embolism, gastritis, DVT with PE, anemia, hypertension, GERD who presents emergency department for evaluation of left-sided numbness and weakness. EMS states that the patient's last well-known time was 05:00 hours when a visitor came to see her in the patient complained of numbness and tingling in her left hand and leg. Patient confirms that this has her last well-known time as well. She also complained of weakness in her left arm and leg. Paramedics state that the patient has a history of TIAs. Patient denied headache, nausea or vomiting. I evaluated the patient on the EMS stretcher and the patient was made a stroke protocol for possible LVO stroke and brought directly to CT after obtaining an accurate weight. In reviewing the patient's admissions, patient was admitted to [facility] 10/16/2023 until 10/18/2023 with acute left-sided weakness. Patient was hypertensive with blood pressure 212/95. CT scans were unremarkable. Patient had a CTA and MRI which were negative. Patient's symptoms eventually improved and discharge diagnosis was left-sided weakness. Related Data Home Medications ?Medication ?Instructions ?Recorded ?Confirmed gabapentin 300 mg capsule 300 mg PO BID 09/21/20 08/11/25 nitroglycerin 0.4 mg sublingual 0.4 mg sublingual DIRECTED 06/19/21 08/11/25 tablet diclofenac sodium 1 % topical gel 2 g topical BID 07/13/21 08/11/25 gabapentin 100 mg capsule 100 mg PO BEDTIME 07/13/21 08/11/25 loratadine 10 mg tablet 10 mg PO BEDTIME 05/14/22 08/11/25 calcium carbonate (Antacid 500 mg PO DAILY 06/27/22 08/11/25 (calcium carbonate)) cholecalciferol (vitamin D3) 25 25 mcg PO DAILY 06/27/22 08/11/25 mcg (1,000 unit) capsule acetaminophen 650 mg 650 mg PO Q8H PRN pain 10/16/23 08/11/25 tablet,extended release potassium chloride 10 mEq 10 meq PO BID 10/16/23 08/11/25 tablet,extended release(part/cryst) (Klor-Con M) rosuvastatin 40 mg tablet 40 mg PO DAILY 10/16/23 08/11/25 amlodipine 5 mg tablet 5 mg PO DAILY 12/02/23 08/11/25 cyanocobalamin (vitamin B-12) 1,000 mcg PO DAILY 01/03/24 08/11/25 1,000 mcg tablet (Vitamin B-12) lidocaine 5 % topical patch 1 patch topical DAILY 07/12/25 08/11/25 prednisolone acetate 1 % eye 1 drp ophthalmic (eye) BID 07/12/25 08/11/25 drops,suspension fluticasone propionate 50 2 spray intranasal DAILY 07/29/25 08/11/25 mcg/actuation nasal spray,suspension clonazepam 0.5 mg tablet 0.5 mg PO BID 08/11/25 08/11/25 ensifentrine 3 mg/2.5 mL 3 mg inhalation BID 08/11/25 08/11/25 suspension for nebulization (Ohtuvayre) Previous Rx's ?Medication ?Instructions ?Recorded loperamide 2 mg capsule 2 mg PO Q4H PRN loose stool #14 08/31/24 caps metoprolol succinate 25 mg 25 mg PO DAILY for palpitations 12/15/24 tablet,extended release 24 hr #90 tabs levetiracetam 500 mg tablet 500 mg PO BID #180 tabs 08/13/25 (Roweepra) Allergies Allergy/AdvReac Type Severity Reaction Status Date / Time latex Allergy Severe Rash Verified 08/11/25 11:36 Latex Gloves Allergy Severe rash Uncoded 08/11/25 11:36 Anjali spice Allergy Severe Rash Uncoded 08/11/25 11:36 Review of Systems Review of Systems: Yes all other systems are reviewed and are negative [facility] Past Medical History Medical History Chronic neck and back pain Hx of flexible sigmoidoscopy (~2017) Hx of diverticulitis of colon Hyperlipidemia Paresthesia Dark stools Pulmonary embolism Chest discomfort Abnormal EKG PAC (premature atrial contraction) Renal cyst Gastritis DVT (deep venous thrombosis) (~2017) Anemia HTN (hypertension) GERD (gastroesophageal reflux disease) Surgical History Hx of colonoscopy History of esophagogastroduodenoscopy (EGD) History of laparoscopic cholecystectomy History of colon resection (~2017) Family History Family History Father No problems noted. Mother No problems noted. Social History Social History Household Members: None Housing: Apartment Are you a primary urgent care technician to a significant other at home: No Do you presently have visiting nurse or other home services: Yes Alcohol intake: never Patient Tobacco Use Status: Never used Tobacco Advance Directives Date on File: 10/21/23 service: No Current occupational status: retired Physical Exam Vital Signs: Vital Signs: Last Vital Signs Temp 97.3 F 08/13/25 12:00 Pulse 54 08/13/25 12:00 Resp 18 08/13/25 12:00 BP 112/55 L 08/13/25 12:00 Pulse Ox 99 08/13/25 12:00 O2 Del Method Room Air 08/13/25 12:00 BMI result Body Mass Index 25.5 Exam: General: Awake, alert in no distress Head: Normocephalic, atraumatic EENT: PERRL, sclera and conjunctiva are normal, mouth with no erythema or exudates Neck: Supple, no adenopathy Lung: breath sounds symmetric, no wheezing, no rales and no rhonchi Chest: symmetric movement, nontender Heart: regular rate and rhythm, normal S1, S2 no murmurs or rubs Abdomen: soft, non-tender, nondistended, normal bowel sounds Back: no vertebral tenderness, no CVAT Extremities: no deformities, moves all extremities symmetrically, no edema Neuro: General: ?Awake, alert, oriented, normal speech Cranial nerves: ?Cranial nerves 2-12 ?intact Strength: ?Moves all extremities symmetrically, strength 5/5 Cerebellar: ?Good feqmcf-od-cgbw-to-finger, good rapid finger movement, normal heel to bruner Sensory: Decreased pinprick on the left side of face, chest, abdomen, left arm and left leg compared to the right. Psych: Pleasant, cooperative Medications Administered Generic Name Dose Route Start Last Admin Trade Name Freq PRN Reason Stop Dose Admin Acetaminophen 650 mg 08/11/25 16:05 08/13/25 06:00 Acetaminophen 325 Mg Tablet PO 650 mg Q6H PRN Administration Pain, Mild 1-3,fever,headache Amlodipine Besylate 5 mg 08/12/25 11:45 08/13/25 08:17 Amlodipine Besylate 5 Mg Tablet PO 5 mg DAILY DIANE Administration Protocol Aspirin 81 mg 08/12/25 09:00 08/13/25 08:16 Aspirin Enteric Coated 81 Mg Tablet.Dr PO 81 mg DAILY DIANE Administration Atorvastatin Calcium 80 mg 08/12/25 11:45 08/13/25 08:16 Atorvastatin Calcium 80 Mg Tablet PO 80 mg DAILY DIANE Administration Calcium Carbonate 750 mg 08/13/25 09:00 08/13/25 08:16 Calcium Carbonate 750 Mg Tab.Chew PO 750 mg DAILY DIANE Administration Clonazepam 0.5 mg 08/12/25 21:00 08/13/25 08:16 Clonazepam 0.5 Mg Tablet PO 0.5 mg BID DIANE Administration Cyanocobalamin 1,000 mcg 08/12/25 11:45 08/13/25 08:16 Cyanocobalamin (Vitamin B-12) 1,000 Mcg Tablet PO 1,000 mcg DAILY DIANE Administration Enoxaparin Sodium 40 mg 08/11/25 17:00 08/12/25 16:29 Enoxaparin Sodium 40 Mg/0.4 Ml Syringe SUBCUT 40 mg Q24H DIANE Administration Fluticasone Propionate 2 spray 08/12/25 11:45 08/13/25 08:18 Fluticasone Propionate Nasal 16 Gm [place] NOSTRIL-B Not Given DAILY DIANE Gabapentin 100 mg 08/12/25 21:00 08/12/25 21:03 Gabapentin 100 Mg Capsule PO 100 mg BEDTIME DIANE Administration Gabapentin 300 mg 08/12/25 11:45 08/13/25 08:16 Gabapentin 300 Mg Capsule PO 300 mg BID DIANE Administration Levetiracetam 250 mg 08/13/25 09:00 08/13/25 08:16 Levetiracetam 250 Mg Tablet PO 250 mg BID DIANE Administration Lidocaine 1 patch 08/12/25 11:45 08/13/25 08:18 Lidocaine 4 % Patch Adh..Patch TRANSDERMA 1 patch DAILY DIANE Administration Protocol Metoprolol Succinate 25 mg 08/12/25 11:45 08/13/25 08:17 Metoprolol Succinate Er 25 Mg Tab.Er.24h PO 25 mg DAILY DIANE Administration Protocol Potassium Chloride 10 meq 08/12/25 11:45 08/13/25 08:17 Potassium Chloride Er 10 Meq Tablet.Er PO 10 meq BID DIANE Administration Prednisolone Acetate 1 drop 08/12/25 11:45 08/13/25 08:18 Prednisolone Acetate 1 % Oph Susp 5 Ml Drpbtl EYE-BOTH Not Given BID DIANE Vitamin D 25 mcg 08/12/25 11:45 08/13/25 08:17 Cholecalciferol (Vitamin D3) 25 Mcg Tablet PO 25 mcg DAILY DIANE Administration Discontinued Medications Generic Name Dose Route Start Last Admin Trade Name Nikosq PRN Reason Stop Dose Admin Atorvastatin Calcium 40 mg 08/12/25 09:00 08/12/25 08:00 Atorvastatin Calcium 40 Mg Tablet PO 40 mg DAILY DIANE Administration Iohexol 70 ml 08/11/25 11:37 08/11/25 11:38 Iohexol 350 Mg/Ml 100 Ml Infus..Btl IV 08/11/25 11:38 70 ml ONCE ONE Administration Medical Decision Making Medical Decision Making MDM Narrative: 84-year-old female with a history of hyperlipidemia, paresthesias, pulmonary embolism, gastritis, DVT with PE, anemia, hypertension, GERD who presents emergency department for evaluation of left-sided numbness and weakness. EMS states that the patient's last well-known time was 05:00 hours when a visitor came to see her in the patient complained of numbness and tingling in her left hand and leg. Patient confirms that this has her last well-known time as well. She also complained of weakness in her left arm and leg. Paramedics state that the patient has a history of TIAs. Patient denied headache, nausea or vomiting. Patient had a similar presentation 10/16/2023 with a negative stroke workup. Physical examination did reveal drift of the left upper and lower extremity compared to the right, possible visual defect on the left compared to the right, and decreased pinprick sensation in the left compared to the right. NIH stroke scale was 4. Differential diagnosis: ?Includes but is not limited to stroke, TIA, intracranial bleed, anemia, electrolyte abnormalities Course 14:24 My interpretation patient's laboratory evaluation as follows: She normocytic anemia with an H&H of 11.3 and 34.9-chronic. PT/INR and PTT were normal. CMP was normal. Twelve EKG revealed normal sinus rhythm with no atrial fibrillation/flutter noted. CT head revealed no acute abnormalities. CT angiogram head and neck revealed no significant abnormalities. The patient may be experiencing TIA versus a stroke. The patient's last known well time was 05:00 hours and the patient was outside of the TNK window. I did discuss the patient's presentation over tiger text with the covering hospitalist, physician political science research assistant Carolina Shepard and the patient will be admit to the hospitalist service for futher evaluation. Differential Diagnosis Differential Diagnoses: The differential diagnosis associated with the presentation includes (See above) Admission/Observation Consideration of admission/observation: Escalation of care including admission/observation considered (Yes) Consult Healthcare Provider Management of the patient was discussed with: Hospitalist Lab Data MDM Lab Attestation statement: I reviewed the patient's lab results. 08/11/25 11:47 08/11/25 11:47 Labs: Lab Results 08/11/25 08/11/25 08/11/25 Range/Units 11:11 11:12 11:47 WBC 8.0 (4.8-10.8) X10*3/uL RBC 3.88 L (4.20-5.50) X10*6/uL Hgb 11.3 L (12.0-16.0) g/dl Hct 34.9 L (37.0-47.0) % MCV 89.9 (80.0-98.0) fL MCH 29.1 (27.0-33.0) pg MCHC 32.4 (31.0-35.0) g/dl RDW 13.2 (11.0-16.0) % Plt Count 187 (160-400) X10*3/uL MPV 9.9 (9.4-12.3) fL Immature Gran % (Auto) 0.2 (0.0-0.4) % Neut % (Auto) 68.2 (45-73) % Lymph % (Auto) 24.9 (20-40) % [place] % (Auto) 5.6 (2-11) % Eos % (Auto) 0.6 (0-4) % Baso % (Auto) 0.5 (0-2) % Lymph # (Auto) 2.0 (1.2-4.9) X10*3/uL [place] # (Auto) 0.5 (0.1-1.2) X10*3/uL Eos # (Auto) 0.1 (0.0-0.4) X10*3/uL Baso # (Auto) 0.0 (0.0-0.2) X10*3/uL Abs Immat Gran (auto) 0.02 (0.00-0.03) X10*3/uL Absolute Neuts (auto) 5.5 (2.0-8.3) x10*3/uL Absolute Nucleated RBC 0.000 (0.0-0.012) X10*3/uL Nucleated RBC % (auto) 0.0 (0.0-0.2) /100WBC PT 12.4 (11.2-13.5) SEC Whole Blood PT 12.2 (11.1-13.5) sec INR 1.0 (0.9-1.1) Whole Blood INR 1.0 (0.9-1.1) APTT 28.2 (26.7-34.1) SEC Sodium 138 (135-145) mmol/L Potassium 4.0 (3.3-5.1) mmol/L Chloride 107 (96-108) mmol/L Carbon Dioxide 25 (22-29) mmol/L Anion Gap 10 L (12-20) BUN 16 (9-16) mg/dL Creatinine 0.80 (0.5-1.4) mg/dL Estim Creat Clear Calc 37.4 Estimated GFR > 60 POC Glucose 88 (60-115) mg/dL Random Glucose 83 (60-115) mg/dL Calcium 9.0 D (8.4-10.2) mg/dL Total Bilirubin 0.3 (0.0-1.0) mg/dL Direct Bilirubin 0.2 (0.0-0.5) mg/dL AST 27 (5-31) U/L ALT 27 (0-31) U/L Alkaline Phosphatase 75 (39-117) U/L Troponin I High Sens 4.9 (<3.5-17.0) ng/L Total Protein 6.0 L (6.5-8.0) g/dL Albumin 3.6 (3.5-5.0) g/dL Triglycerides 61 (<150) mg/dL Cholesterol 129 (<200) mg/dL LDL Cholesterol, Calc 67 (<100) mg/dL HDL Cholesterol 50 (>40) mg/dL Independent Interpretation I performed an independent interpretation of an: EKG Interpretation: My independent interpretation patient's 12 EKG done 08/11/2025 at 11:29 hours is as follows: Normal sinus rhythm rate of 60, normal NV interval, QRS duration QTC interval, no ST segment elevation, no ST segment depression, no significant T-wave abnormalities-this is a normal EKG Radiology Impression Discussion of test interpretation with radiology: I discussed test interpretation with the radiologist and I have reviewed the radiologist's reading. Radiologist Impression: CT/CT head for STROKE IMPRESSION: No acute intracranial abnormality. Findings were communicated to Demetrius Perez by telephone 08/11/2025 at 11:30 AM. Electronically signed by: Dionna Albright MD 08/11/2025 11:[address] angio head neck STROKE IMPRESSION: CTA NECK: No hemodynamically significant stenosis, stable exam. CTA HEAD: No hemodynamically significant stenosis, stable exam. Results Delivered via Master Equation to Dr. Villanueva at 12:10 pm EST. Independent Historian Clinical information obtained from an independent historian. History obtained from or confirmed by: EMS External Record Review External record reviewed: Inpatient record Chronic Conditions Patient?s care impacted by: Hypertension NIH Stroke Scale Internal: Initial- Upon Arrival Level of Consciousness: Alert Level of Consciousness Questions: Answers both questions correctly Level of Consciousness Commands: Performs both tasks correctly Best Gaze: Normal Visual: Partial hemianopia (Diminished visual field left lateral compared to right lateral) Facial Palsy: Normal Motor Arm (Right): No drift Motor Arm (Left): Drift Motor Leg (Right): No drift Motor Leg (Left): Drift Limb Ataxia: Absent Sensory: Mild to moderate sensory loss (Left side compared to right) Best Language: No aphasia Dysarthia: Normal Extinction and Inattention: No abnormality Score: 4 Critical Care Time Critical Care Time Critical Care Time: Yes Total Critical Care Time: 35 Attestation: Critical Care: The patient was critically ill with a high probability of imminent or life threatening deterioration. I spent greater than 30 minutes of discontinuous time evaluating the patient,delivering critical care at the bedside, discussing and evaluating pertinent data with consultants. Critical care time does not include time spent performing separately billable procedures or teaching. Total time spent performing critical care was 35 minutes. Discharge Plan Discharge Clinical Impression: Stroke, Acute left-sided muscle weakness Patient Disposition: Admitted As Inpatient Interventions: Admission Worksheet (ED) Last Done: 08/11/25 18:45 Discharge Date/Time: 08/12/25 08:49
[2025-08-11] MEDS: iohexoL 350 MG/ML 100 ML INFUS..BTL 70 ML IV (11:38)
[2025-08-11 11:51] LABS: Hematocrit 34.9 % (37.0-47.0); Hemoglobin 11.3 g/dl (12.0-16.0); Imm Gran Abs Auto 0.02 X10*3/uL (0.00-0.03); Imm Gran Pct Auto 0.2 % (0.0-0.4); Lymphocytes Absolute Auto 2.0 X10*3/uL (1.2-4.9); MANUAL DIFF FLAG NO; Mean Corpuscular HGB Conc 32.4 g/dl (31.0-35.0); Mean Corpuscular Hemoglobin 29.1 pg (27.0-33.0); Mean Corpuscular Volume 89.9 fL (80.0-98.0); NRBC Abs Auto 0.000 X10*3/uL (0.0-0.012); NRBC Pct Auto 0.0 /100WBC (0.0-0.2); Platelet Count 187 X10*3/uL (160-400); Red Blood Count 3.88 X10*6/uL (4.20-5.50); White Blood Count 8.0 X10*3/uL (4.8-10.8)
[2025-08-11 11:57] LABS: INTERNATIONAL NORM RATIO 1.0 (0.9-1.1); Prothrombin Time 12.4 SEC (11.2-13.5)
[2025-08-11 12:00] LABS: Partial Thromboplastin Time 28.2 SEC (26.7-34.1)
[2025-08-11 12:02] LABS: Stroke Lab Use COMPLETE
[2025-08-11 12:09] LABS: Alanine Aminotransferase 27 U/L (0-31); Albumin Level 3.6 g/dL (3.5-5.0); Alkaline Phosphatase 75 U/L (39-117); Anion Gap 10 (12-20); Aspartate Amino Transferase 27 U/L (5-31); Blood Urea Nitrogen 16 mg/dL (9-16); Calcium 9.0 mg/dL (8.4-10.2); Carbon Dioxide 25 mmol/L (22-29); Chloride 107 mmol/L (96-108); Cholesterol 129 mg/dL (<200); Creatinine Clr Calc Pharmacy 37.4; Estimated Glomerular Filt Rate > 60; HDL Cholesterol 50 mg/dL (>40); Potassium 4.0 mmol/L (3.3-5.1); Sodium 138 mmol/L (135-145); Total Protein 6.0 g/dL (6.5-8.0); Triglycerides 61 mg/dL (<150)
[2025-08-11 12:17] LABS: Troponin-I High Sensitivity 4.9 ng/L (<3.5-17.0)
--- NOTE | 2025-08-11 15:38 | PM.IMHP ---
History of Present Illness Date of Service: 08/11/25 Chief Complaint: left sided weakness A 84-year-old female with a medical history significant for hyperlipidemia, paresthesias, prior DVT and pulmonary embolism, gastritis, anemia, hypertension, h/o colon resectionn and GERD presented to the emergency department with acute onset left-sided numbness and weakness. Her NIH Stroke Scale score was 4. CT head and CT angiogram of the head and neck showed no acute abnormalities. Laboratory studies were unremarkable. She similar presentation in Sep 2023 and work up was negative for stroke. She's been observed for stroke or TIA. Review of Systems Review of Systems: Gen: no fever Resp: no sob, no cough CV: no chest, no RAMIREZ, no leg edema GI: No n/v, no abd pain Neuro: No confusion, no focal weakness [facility] Medical History Chronic neck and back pain Hx of flexible sigmoidoscopy (~2016) Hx of diverticulitis of colon Hyperlipidemia Paresthesia Dark stools Pulmonary embolism Chest discomfort Abnormal EKG PAC (premature atrial contraction) Renal cyst Gastritis DVT (deep venous thrombosis) (~2016) Anemia HTN (hypertension) GERD (gastroesophageal reflux disease) Family History Father No problems noted. Mother No problems noted. Surgical History Hx of colonoscopy History of esophagogastroduodenoscopy (EGD) History of laparoscopic cholecystectomy History of colon resection (~2016) Social History Household Members: Children Housing: House Are you a primary career manager to a significant other at home: No Do you presently have visiting nurse or other home services: No Alcohol intake: never Patient Tobacco Use Status: Never used Tobacco Advance Directives: Yes Advance Directives on File: Yes Advance Directives Date on File: 10/21/23 service: No Current occupational status: retired Meds Allergies Allergy/AdvReac Type Severity Reaction Status Date / Time latex Allergy Severe Rash Verified 08/11/25 11:36 Latex Gloves Allergy Severe rash Uncoded 08/11/25 11:36 Anjali spice Allergy Severe Rash Uncoded 08/11/25 11:36 Home Medications ?Medication ?Instructions ?Recorded ?Confirmed ?Last Taken ?Type gabapentin 300 mg capsule 300 mg PO BID 09/21/20 07/29/25 10/15/23 History nitroglycerin 0.4 mg sublingual 0.4 mg sublingual DIRECTED 06/19/21 12/01/24 Unknown History tablet diclofenac sodium 1 % topical gel 2 g topical BID 07/13/21 12/01/24 10/15/23 History gabapentin 100 mg capsule 100 mg PO BEDTIME 07/13/21 07/29/25 10/15/23 History loratadine 10 mg tablet 10 mg PO BEDTIME 05/14/22 12/01/24 10/15/23 History calcium carbonate (Antacid 500 mg PO TID 06/27/22 12/01/24 10/15/23 History (calcium carbonate)) cholecalciferol (vitamin D3) 25 25 mcg PO DAILY 06/27/22 12/01/24 10/15/23 History mcg (1,000 unit) capsule cholestyramine (with sugar) 4 gram 2 g PO DAILY 06/27/22 12/01/24 10/15/23 History oral powder acetaminophen 650 mg 650 mg PO Q8H PRN pain 10/16/23 07/29/25 Unknown History tablet,extended release potassium chloride 10 mEq 10 meq PO BID 10/16/23 12/01/24 10/15/23 History tablet,extended release(part/cryst) (Klor-Con M) rosuvastatin 40 mg tablet 40 mg PO DAILY 10/16/23 07/29/25 10/15/23 History amlodipine 5 mg tablet 5 mg PO DAILY 12/02/23 07/29/25 01/06/24 History cyanocobalamin (vitamin B-12) 1,000 mcg PO DAILY 01/03/24 12/01/24 Unknown History 1,000 mcg tablet (Vitamin B-12) lidocaine 5 % topical patch 1 patch topical DAILY 07/12/25 Unknown History netarsudil 0.02 % eye drops drp ophthalmic (eye) 07/12/25 Unknown History (Rhopressa) prednisolone acetate 1 % eye drp ophthalmic (eye) 07/12/25 Unknown History drops,suspension fluticasone propionate 50 1 spray intranasal DAILY 07/29/25 07/29/25 Unknown History mcg/actuation nasal spray,suspension ensifentrine 3 mg/2.5 mL 3 mg inhalation BID 08/11/25 08/11/25 Unknown History suspension for nebulization (Ohtuvayre) Physical Exam Vital Signs and Narrative: Vital Signs: Last Vital Signs Temp 97.9 F 08/11/25 11:10 Pulse 61 08/11/25 14:16 Resp 14 08/11/25 14:16 BP 143/63 H 08/11/25 14:16 Pulse Ox 98 08/11/25 14:16 O2 Del Method Room Air 08/11/25 14:16 BMI result Body Mass Index 25.5 Const: Other: Constitutional: Alert, in no distress, Mental Status: Oriented to person, place and time. Eyes: Pupils are equal, round and reactive to light. Ear, Nose and Throat: Oropharynx clear, mucous membranes moist. Ears and nose without eformities. Trachea midline. Respiratory: Clear to auscultation. No wheezing, rales or rhonchi. Cardiovascular: S1 S2 regular. No murmurs, rubs or gallops. Gastrointestinal: Abdomen soft, non-tender, non-distended. Normal bowel sounds.? Neurologic: Cranial nerves II-XII grossly intact. No focal neurological deficits. Moves all extremities spontaneously.?Face is symetric Skin: No rashes or lesions.? Musculoskeletal: No cyanosis or clubbing. Psychiatric: Normal mood and affect? Results Labs 08/11/25 11:47 08/11/25 11:47 Labs: Laboratory Results - last 24 hr 08/11/25 08/11/25 08/11/25 11:11 11:12 11:47 MCV 89.9 MCH 29.1 MCHC 32.4 RDW 13.2 Plt Count 187 MPV 9.9 Immature Gran % (Auto) 0.2 Neut % (Auto) 68.2 Lymph % (Auto) 24.9 [place] % (Auto) 5.6 Eos % (Auto) 0.6 Baso % (Auto) 0.5 Lymph # (Auto) 2.0 [place] # (Auto) 0.5 Eos # (Auto) 0.1 Baso # (Auto) 0.0 Abs Immat Gran (auto) 0.02 Absolute Neuts (auto) 5.5 Absolute Nucleated RBC 0.000 Nucleated RBC % (auto) 0.0 PT 12.4 Whole Blood PT 12.2 INR 1.0 Whole Blood INR 1.0 APTT 28.2 Anion Gap 10 L Estim Creat Clear Calc 37.4 Estimated GFR > 60 POC Glucose 88 Random Glucose 83 Calcium 9.0 D Total Bilirubin 0.3 Direct Bilirubin 0.2 AST 27 ALT 27 Alkaline Phosphatase 75 Troponin I High Sens 4.9 Total Protein 6.0 L Albumin 3.6 Triglycerides 61 Cholesterol 129 LDL Cholesterol, Calc 67 HDL Cholesterol 50 Imaging Radiologist's Impressions: Impressions Head CT 08/11/25 11:19 IMPRESSION: No acute intracranial abnormality. Findings were communicated to Demetrius Perez by telephone 08/11/2025 at 11:30 AM. Electronically signed by: Dionna Albright MD 08/11/2025 11:34 AM EST RP Head/Neck CTA 08/11/25 11:23 IMPRESSION: CTA NECK: No hemodynamically significant stenosis, stable exam. CTA HEAD: No hemodynamically significant stenosis, stable exam. Results Delivered via [place] to Dr. Villanueva at 12:10 pm EST. Electronically signed by: Mike Gambino MD 08/11/2025 12:11 PM EST RP Assessment and Plan (1) Left-sided weakness: Status: Acute Plan 84-year-old female with a medical history significant for hyperlipidemia, paresthesias, prior DVT and pulmonary embolism, gastritis, anemia, hypertension, h/o colon resectionn and GERD here with transient Left sided weakness and numbness Transient L sided weakness and numbness, rule TIA monitor, Neuro checks, Lipid profile, Neuoro consult, hold of MRI for now PT HTN resume home BP meds HLD check Lipids, statin Quality Stroke Does the patient have a stroke diagnosis?: No VTE Prior VTE?: Yes VTE Risk Level:: Medical - moderate - high VTE Device Contraindication: Treatment Not Indicated VTE Drug Contraindication: N/A - Med Ordered
--- OUTSIDE RECORDS SUMMARY | 2025-08-11 15:44 | XMS_ITS | Encounter Summary ---
Author Organization [facility] Address [address] [place] [address] Care Team Providers Care Soaking Pit Operator Name Role Phone Feroz Reyes MD Primary Care Provider [phone] Encounter Details Date Type Department Care Team (Late st Contact Info) Description 07/14/2025 Results [facility] [address] [place] [address] Art Martinez, ZULEMA [address] [place] [address] Social History Tobacco Use Types Packs/Day Years [...] care for your loved ones. For example, director of early childhood or elderly care for an older adult? [...] Info) Description 03/31/2026 10:30 AM EDT Appointment [facility] Ultrasound [address] [place] [address] 04/06/2026 10:30 AM EDT Office Visit Vascular Surgery - [place] [address] [place] [address] Karol Schafer MD [address] [place] [address] documented as of this encounter Visit Diagnoses Not on filedocumented in this encounter Additional Health Concerns Assessment Noted Time PHQ-9 Depression Total Score: 0 04/06/20 25 10:33 AM EDT documented as of this encounter Care Teams Soaking Pit Operator Relationship Specialty Start Date End Date Feroz Reyes MD [address] [place] [address] PCP - General Internal Medicine 09/29/20 documented as of this encounter
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
--- OUTSIDE RECORDS SUMMARY | 2025-08-11 15:44 | XMS_ITS | Clinical Summary ---
Author Organization [facility] Prior to 01/23/[address] [place] [address] Care Team Providers Care Vice President Payment Name Role Phone Feroz Reyes MD Primary Care Provider [phone] Social History Tobacco Use Types Packs/Day Years [...] age to complete this topic Care Teams Vice President Payment Relationship Specialty Start Date End Date Feroz Reyes MD PCP - General Internal Medicine 11/08/20
--- OUTSIDE RECORDS SUMMARY | 2025-08-11 15:44 | XMS_ITS | Clinical Summary ---
Author Organization [facility] Address [address] [place] [phone] Phone Care Team Providers Care Fha Underwriter Name Role Phone Feroz Reyes MD Primary Care Provider [phone] Allergies Active Allergy Reactions Criticality Noted Date [...] & Plan (05/05/2025 11:16 AM EDT): Ms. Shukla describes several years of low back pain [...] & Plan (05/05/2025 11:18 AM EDT): Ms. Shukla complains of left hip pain. She had [...] PM EDT): She was prescribed Augmentin by [facility] and she will complete a course. Symptoms have improved. I have placed a referral to gastroenterology (Dr. Blunt at [facility]) for her. She will also keep her [...] Covid 07/03/23 PVD (peripheral vascular disease) 02/28/2023 Stage 3 chronic kidney disease 03/31/2021 Hypercholesterolemia 12/26/2020 Nephrolithiasis 12/26/2020 Anemia 12/26/2020 Bilateral renal cysts 12/15/2020 Adrenal adenoma, right 12/07/2020 Gastroesophageal reflux disease 10/31/2020 Essential hypertension 10/31/2020 Cervical radiculopathy 10/31/2020 Encounters Date Type Department Care Team Description 08/11/2025 Telephone Internal Medicine [address] [phone] Feroz Reyes MD 08/02/2025 Telephone Neurosurgery [facility] [address] [place] [phone] Radha Malin MD 07/27/2025 9:30 AM EST Office Visit Internal [address] [phone] Feroz Reyes MD Hypercholesterolemia (Primary Dx); Essential hypertension; Allergic rhinitis, unspecified seasonality, unspecified trigger 07/27/[address] [phone] Feroz Reyes MD 07/14/2025 Results Follow-Up Internal [address] [phone] Art Martinez NP 07/13/2025 1:35 PM EST Lab Draw Station [address] Vitamin D deficiency; Fatigue, unspecified type; Screening for metabolic disorder 07/13/2025 1:00 PM EST Office Visit Internal [address] [phone] Art Martinez NP Fatigue, unspecified type (Primary Dx); Sinus pressure; Screening for metabolic disorder; Vitamin D deficiency; Essential hypertension; Skin tag 07/07/2025 Telephone Internal Medicine [address] [phone] Feroz Reyes MD 05/20/2025 Telephone Internal Medicine [address] [phone] Feroz Reyes MD 05/13/2025 Telephone Neurosurgery [facility] [address] [place] [address] Dionicio Stark PA 05/13/2025 [facility] [address] [place], [place] [phone] Lakisha Doshi MA from Last 3 Months Immunizations Immunization Administration [...] CATHETERIZATION PROCEDURE: HISTORICAL CARDIAC CATH CHOLECYSTECTOMY PROCEDURE: NC LAPAROSCOPY SURG CHOLECYSTECTOMY COLONOSCOPY PROCEDURE: HISTORICAL COLONOSCOPY [...] care for your loved ones. For example, professor of early childhood education or elderly care for an older adult? [...] Info) Description 03/31/2026 10:[address] [facility] Ultrasound [address] [place] [address] 04/06/2026 10:30 AM EDT Office Visit Vascular Surgery - [place] [address] [place] [phone] Karol Schafer MD [address] [place] [phone] Health Maintenance Due Date Last Done Comments Drug Screen 1940 Non-Opioid Controlled Substance Agreement 1941 RSV Immunization Adult Patients (1 - 1-dose [...] Date/Time Associated Diagnosis Comments EXTERNAL CT REPORT 08/11/2025 CBC WITH AUTO DIFFERENTIAL Routine 07/13/2025 1:48 PM EST Fatigue, unspecified type CBC AND DIFFERENTIAL Routine 07/13/2025 1:48 PM EST Fatigue, unspecified type COMPREHENSIVE METABOLIC PANEL Routine 07/13/2025 1:48 PM EST Fatigue, unspecified type Screening for metabolic disorder VITAMIN D 25 HYDROXY Routine 07/13/2025 1:48 PM EST Vitamin D deficiency EXTERNAL MRI REPORT 06/21/2025 EXTERNAL MRI REPORT 06/21/2025 LIPID PANEL WITH REFLEX TO DIRECT LDL Routine 12/04/2024 10:35 AM EDT PVD (peripheral vascular disease) (CMS/HCC V24) Hypercholesterolemia DXA BONE DENSITY STUDY 1+ SITS AXIAL SKEL Routine 08/03/2022 9:21 AM EST Encounter for screening for osteoporosis from Last 3 Months or Most Recently Relevant to Health Maintenance Results * External CT Report (08/11/2025) Anatomical Region Laterality Modality Computed Tomogra phy us Provider [facility] CT PROCEDURES Final Result * (ABNORMAL) CBC auto differential (07/13/2025 1:48 PM EST) [facility] WBC 6.8 4.8 - 10.8 K/mcL LAB HEMETOLOGY METHOD 07/13/2025 3:13 PM [facility] RBC 3.90 3.80 - 4.80 M/mcL LAB HEMETOLOGY METHOD 07/13/2025 3:13 PM [facility] Hemoglobin 11.4(L) 11.5 - 16.0 g/dL LAB HEMETOLOGY METHOD 07/13/2025 3:13 PM [facility] Hematocrit 35.3 35.0 - 47.0 % LAB HEMETOLOGY METHOD 07/13/2025 3:13 PM [facility] MCV 91.5 79.0 - 98.0 FL LAB HEMETOLOGY METHOD 07/13/2025 3:13 PM [facility] MCH 29.5 27.0 - 32.0 pcg LAB HEMETOLOGY METHOD 07/13/2025 3:13 PM [facility] MCHC 32.3 32.0 - 37.0 g/dL LAB HEMETOLOGY METHOD 07/13/2025 3:13 PM [facility] RDW 14.0 11.0 - 15.0 % LAB HEMETOLOGY METHOD 07/13/2025 3:13 PM [facility] Platelets 187 130 - 400 K/mcL LAB HEMETOLOGY METHOD 07/13/2025 3:13 PM [facility] MPV 10.4 7.0 - 11.0 FL LAB HEMETOLOGY METHOD 07/13/2025 3:13 PM [facility] NRBC 0.0 <1.0 % LAB HEMETOLOGY METHOD 07/13/2025 3:13 PM [facility] NRBC Absolute 0.00 <0.10 K/mcL LAB HEMETOLOGY METHOD 07/13/2025 3:13 PM [facility] Neutrophils Relative 50.9 % LAB HEMETOLOGY METHOD 07/13/2025 3:13 PM [facility] Lymphocytes Relative 39.0 % LAB HEMETOLOGY METHOD 07/13/2025 3:13 PM [facility] Monocytes Relative 8.1 % LAB HEMETOLOGY METHOD 07/13/2025 3:13 PM [facility] Eosinophils Relative 1.3 % LAB HEMETOLOGY METHOD 07/13/2025 3:13 PM [facility] Basophils Relative 0.6 % LAB HEMETOLOGY METHOD 07/13/2025 3:13 PM [facility] Immature Granulocytes Relative 0.1 % LAB HEMETOLOGY METHOD 07/13/2025 3:13 PM [facility] Neutrophils Absolute 3.47 1.50 - 7.00 K/mcL LAB HEMETOLOGY METHOD 07/13/2025 3:13 PM [facility] Lymphocytes Absolute 2.66 1.00 - 5.00 K/mcL LAB HEMETOLOGY METHOD 07/13/2025 3:13 PM [facility] Monocytes Absolute 0.55 0.20 - 1.00 K/mcL LAB HEMETOLOGY METHOD 07/13/2025 3:13 PM [facility] Eosinophils Absolute 0.09 0.00 - 0.50 K/mcL LAB HEMETOLOGY METHOD 07/13/2025 3:13 PM [facility] Basophils Absolute 0.04 0.00 - 0.20 K/mcL LAB HEMETOLOGY METHOD 07/13/2025 3:13 PM [facility] Immature Granulocytes Absolute 0.01 0.00 - 0.03 K/mcL LAB HEMETOLOGY METHOD 07/13/2025 3:13 PM [facility] Blood Venous blood specimen / Unknown Venipuncture / Unknown 07/13/2025 1:48 PM EST 07/13/2025 1:48 PM EST Art Martinez NP LAB BLOOD ORDERABLES Gris l Result [facility] [address] [place] [address], [place] [phone] * Vitamin D 25 hydroxy (07/13/2025 1:48 PM EST) [facility] Vit D, 25-Hydroxy 53.6 30.0 - 80.0 ng/mL 07/13/2025 6:47 PM EST [facility] Blood Venous blood specimen / Unknown Venipuncture / Unknown 07/13/2025 1:48 PM EST 07/13/2025 1:48 PM EST Art Martinez NP LAB BLOOD ORDERABLES Gris l Result Performing Organization Address City/[facility]/ZIP Co de Phone Number [facility] [address] [place] [address], [place] [phone] * (ABNORMAL) Comprehensive metabolic panel (07/13/2025 1:48 PM EST) [facility] Sodium 142 133 - 145 mmol/L 07/13/2025 6:45 PM [facility] Potassium 4.3 3.5 - 5.5 mmol/L 07/13/2025 6:45 PM [facility] Chloride 107 96 - 110 mmol/L 07/13/2025 6:45 PM [facility] CO2 24 21 - 32 mmol/L 07/13/2025 6:45 PM [facility] Anion Gap 11 3 - 11 07/13/2025 6:45 PM [facility] Glucose 53(L) 70 - 100 mg/dL 07/13/2025 6:45 PM [facility] BUN 11 5 - 25 mg/dL 07/13/2025 6:45 PM [facility] Creatinine 0.84 0.50 - 1.10 mg/dL 07/13/2025 6:45 PM [facility] eGFR 69 >=60 mL/min/1. 73m2 07/13/2025 6:45 PM [facility] Comment:Calculation based on the Chronic Kidney Disease Epidemiology Collaboration (CKD-EPI) equation refit without adjustment for race. BUN/Creatinine Ratio 13.1 07/13/2025 6:45 PM [facility] Calcium 9.7 8.5 - 10.5 mg/dL 07/13/2025 6:45 PM [facility] AST (SGOT) 24 10 - 42 unit/L 07/13/2025 6:45 PM [facility] ALT (SGPT) 17 10 - 60 unit/L 07/13/2025 6:45 PM [facility] Alkaline Phosphatase 71 42 - 121 unit/L 07/13/2025 6:45 PM [facility] Total Protein 5.5(L) 6.0 - 8.0 g/dL 07/13/2025 6:45 PM [facility] Albumin 4.0 3.2 - 5.0 g/dL 07/13/2025 6:45 PM [facility] Total Bilirubin 0.4 0.0 - 1.4 mg/dL 07/13/2025 6:45 PM [facility] Blood Venous blood specimen / Unknown Venipuncture / Unknown 07/13/2025 1:48 PM EST 07/13/2025 1:48 PM EST us Art Martinez NP LAB BLOOD ORDERABLES Gris l Result [facility] [address] [place] [address], [place] [phone] * External MRI Report (06/21/2025) Only the most recent of2 resultswithin the time period is included. Anatomical Region Laterality Modality Magnetic Resonan ce us Provider [facility] MRI PROCEDURES Final Result * Lipid panel with reflex to direct LDL (12/04/2024 10:35 AM EDT) Cholesterol 132 0 - 200 mg/dL LAB CHEMISTRY METHOD 12/04/2024 2:25 PM EDT [facility] Triglycerides 111 0 - 150 mg/dL LAB CHEMISTRY METHOD 12/04/2024 2:25 PM EDT [facility] HDL 67 >=40 mg/dL LAB CHEMISTRY METHOD 12/04/2024 2:25 PM EDT [facility] LDL Calculated 43 0 - 100 mg/dL LAB CHEMISTRY METHOD 12/04/2024 2:25 PM EDT [facility] VLDL Cholesterol Theo 22.2 mg/dL LAB CHEMISTRY METHOD 12/04/2024 2:25 PM EDT [facility] Non HDL Chol. (LDL+VLDL) 65 <145 mg/dL LAB CHEMISTRY METHOD 12/04/2024 2:25 PM EDT [facility] Chol/HDL Ratio 2.0 0.0 - 4.4 LAB CHEMISTRY METHOD 12/04/2024 2:25 PM EDT [facility] Blood Venous blood specimen / Unknown Venipuncture / Unknown 12/04/2024 10:35 AM EDT 12/04/2024 10:35 AM EDT Kiya Balbuena NP LAB BLOOD ORDERABLES Final Resu lt [facility] [address] [place] [address], * DXA BONE DENSITY STUDY 1+ SITS [...] (World Health Organization Fracture Risk Assessment) [facility] Department of Internal Medicine recommends using [...] alternative screening schedule based on will Schaefer., [facility] September 13, 2011 for patients with osteopenia [...] years. (World HealthOrganization Fracture Risk Assessment) [facility] Department of Internal Medicine recommendsusing National [...] alternative screening schedule based on will Schaefer., NEJJanuary 2011 for patients with osteopenia (based on [...] MEDICARE ADVANTAGE MEDICAID - [place] Care Teams Fha Underwriter Relationship Specialty Start Date End Date Feroz Reyes MD [address] [place] [id number] PCP - General Internal Medicine 09/29/20
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
--- OUTSIDE RECORDS SUMMARY | 2025-08-11 15:44 | XMS_ITS | Encounter Summary ---
Author Organization [facility] Address [address] [place] [address] Care Team Providers Care Shingle Carrier Name Role Phone Feroz Reyes MD Primary Care Provider [phone] Reason for Visit * Reason Onset Date Comments Call to Patient 08/02/2025 Follow Up on ord er for US Arthrocentesis Asp Inj Joint Major Left Encounter Details Date Type Department Care Team (Late st Contact Info) Description 08/02/2025 Telephone Neurosurgery [facility] [address] [facility] [address] [place] [phone] Radha Malin MD [address] [place] [address] Social History Tobacco Use Types Packs/Day Years [...] care for your loved ones. 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 [...] as of this encounter Progress Notes * Kendra Arrieta - 08/02/2025 11:34 AM EST LVM to pt to follow up on order, requesting that she contact the office with whether she would liketo proceed with injection (ordered 05/05/25 by Tym) or not. Pt had deferred scheduling in May. Thank you documented in this encounter Plan of Treatment Upcoming Encounters Date Type Department Care Team (Late st Contact Info) Description 03/31/2026 10:30 AM EDT Appointment [facility] Ultrasound [address] [place] [phone] 04/06/2026 10:30 AM EDT Office Visit Vascular Surgery - [place] [address] [place] [phone] Karol Schafer MD [address] [place] [phone] documented as of this encounter Visit Diagnoses Not on filedocumented in this encounter Additional Health Concerns Assessment Noted Time PHQ-9 Depression Total Score: 0 07/27/20 25 9:48 AM EST documented as of this encounter Care Teams Shingle Carrier Relationship Specialty Start Date End Date Feroz Reyes MD [address] [place] [phone] PCP - General Internal Medicine 09/29/20 documented as of this encounter
--- NOTE | 2025-08-11 17:30 | PHA.MEDREC ---
Pharmacy Consult ? Medication Reconciliation Pharmacy has completed the medication reconciliation. Patient had med list dated 07/27, went over that with her. No longer takes Questran and takes rosuvastatin daily.
[2025-08-11 18:00] LABS: Appearance Urine Clear; Glucose Urine UA Negative (Negative); PH 8.5 (5.0-9.0); Specific Gravity - Urine >= 1.030 (1.005-1.025)
--- NOTE | 2025-08-11 23:29 | PC.NURSE ---
assumed care of pt, resting quietly no apparent distress noted
[2025-08-12] VITALS (10 sets, daily range): BP systolic 112–160; BP diastolic 53–64; PULSE 55–67; RESP 14–20; TEMP 36.2–37.1; O2SAT 98–100; BMI 24.9
--- NOTE | 2025-08-12 | EEG_ITS ---
History: 84-year-old female with a medical history significant for hyperlipidemia, paresthesias, prior DVT and pulmonary embolism, gastritis, anemia, hypertension, h/o colon resectionn and GERD presented to the emergency department with acute onset left-sided numbness and weakness. I would noted that she has presented with similar symptom in 2023. She had an MRI done in May that did not reveal any acute abnormality. It revealed moderate chronic microvascular ischemic type of changes. It also revealed moderate atrophy that was more pronounced in biparietal areas and cerebellum. She presented with numbness and tingling that started in left side of the head and face and in few sec travel to her left arm or leg. She had a headache afterwards and even this morning she took some Tylenol for headache. She denied having frequent headaches but also admitted that she sometime had migraine headaches. Medication: gabapentin, nitroglycerin, diclofenac sodium, gabapentin, loratadine, calcium carbonate, cholecalciferol (vitamin D3), acetaminophen, potassium chloride, rosuvastatin, amlodipine, cyanocobalamin (vitamin B-12), lidocaine, prednisolone acetate, fluticasone propionate, clonazepam, ensifentrine Technical Description Photic Stimulation: completed Hyperventilation: omitted Behavioral State: pleasant State of Consciousness: awake and sleep Skull Defect: none Sedation: no Handedness: right Duration: 25 min 43 sec Weight Inspector Comments: Last Meal: 08/12/25 1pm Time / date of last symptom: 08/11/25 Description: This is a 16 channel EEG with an EKG lead. Patient is reported awake and sleep during the tracing. Background EEG rhythm, when awake, is symmetric alpha posteriorly and lower amplitude fast anteriorly. Patient transitioned into drowsiness with slowing. Intermittently left temporal area sharply controlled theta range discharges were noted. Rarely similar pattern was noted on the right side but it was not as well developed. Photic stimulation did not produce any significant driving. Hyperventilation was not performed. Cardiac lead did not reveal any significant abnormality. Impression: Abnormal EEG suggestive of underlying risk for partial to complex partial seizure disorder. MTDD
[2025-08-12 04:55] LABS: Cholesterol 137 mg/dL (<200); HDL Cholesterol 52 mg/dL (>40); Triglycerides 75 mg/dL (<150)
--- NOTE | 2025-08-12 07:37 | PC.NURSE ---
Assumed care of pt, VSS on the monitor, pt sleeping at this time. Allowed to rest.
[2025-08-12] MEDS: Aspirin Enteric Coated 81 MG TABLET.DR PO (08:00)
--- NOTE | 2025-08-12 09:52 | MHC.CM.PN ---
Celeste 08/12/25, Pt. lives alone, she has [employer] services 2 time a week to assist with personal care and light housekeeping. For DME, she has a cane and a rollator. PCP confirmed: Feroz Reyes MD. HCP is on file and confirmed: [facility]. She has been to [facility] 2 x in the past for STR, she said it was fine. Pt. may need assistance with transport home at [place], DCP: home, ? with services. CM to follow for DC needs.
--- NOTE | 2025-08-12 10:46 | P.CNNE_ITS ---
History of Present Illness Data of Consult Service Date: 08/12/25 Primary Care Provider: Feroz Reyes MD [facility] Reason for consult: Left-sided numbness 84-year-old female with a medical history significant for hyperlipidemia, paresthesias, prior DVT and pulmonary embolism, gastritis, anemia, hypertension, h/o colon resectionn and GERD presented to the emergency department with acute onset left-sided numbness and weakness. I would noted that she has presented with similar symptom in 2023. She had an MRI done in May that did not reveal any acute abnormality. It revealed moderate chronic microvascular ischemic type of changes. It also revealed moderate atrophy that was more pronounced in biparietal areas and cerebellum. She presented with numbness and tingling that started in left side of the head and face and in few sec travel to her left arm or leg. She had a headache afterwards and even this morning she took some Tylenol for headache. She denied having frequent headaches but also admitted that she sometime had migraine headaches. Review of Systems 2 Review of Systems: General: No recent change in weight HEENT: No change in hearing or vision or cold or flu Cardiovascular: No complain of chest pain or palpitation Respiratory: No shortness of breath GI: No nausea or vomiting or diarrhea Musculoskeletal: No complain of joint pains Genitourinary: No loss of bowel bladder control Neurological: She had fallen couple of times recently and was using a walker at home. Falling happened because mechanical reasons. Psychiatric: No significant anxiety or depression [facility] Past Medical History Medical History Chronic neck and back pain Hx of flexible sigmoidoscopy (~2016) Hx of diverticulitis of colon Hyperlipidemia Paresthesia Dark stools Pulmonary embolism Chest discomfort Abnormal EKG PAC (premature atrial contraction) Renal cyst Gastritis DVT (deep venous thrombosis) (~2017) Anemia HTN (hypertension) GERD (gastroesophageal reflux disease) Family History Family History Father No problems noted. Mother No problems noted. Surgical History Surgical History Hx of colonoscopy History of esophagogastroduodenoscopy (EGD) History of laparoscopic cholecystectomy History of colon resection (~2017) Social History Social History Household Members: None Housing: Apartment Are you a primary acute care nursing assistant to a significant other at home: No Do you presently have visiting nurse or other home services: Yes Alcohol intake: never Patient Tobacco Use Status: Never used Tobacco Advance Directives Date on File: 10/21/23 service: No Current occupational status: retired Meds Allergies Allergy/AdvReac Type Severity Reaction Status Date / Time latex Allergy Severe Rash Verified 08/11/25 11:36 Latex Gloves Allergy Severe rash Uncoded 08/11/25 11:36 Anjali spice Allergy Severe Rash Uncoded 08/11/25 11:36 Active Medications: Current Medications Acetaminophen (Acetaminophen 325 Mg Tablet) 650 mg PO Q6H PRN PRN Reason: Pain, Mild 1-3,fever,headache Last Admin: 08/12/25 09:28 Dose: 650 mg Al Hydroxide/Mg Hydroxide (Magnesium Hydrox/Alum Hydrox 30 Ml Oral.Susp) 30 ml PO Q4H PRN PRN Reason: Heartburn Aspirin (Aspirin Enteric Coated 81 Mg Tablet.Dr) 81 mg PO DAILY COUNTS INCLUDE 234 BEDS AT THE [facility] Last Admin: 08/12/25 08:00 Dose: 81 mg Atorvastatin Calcium (Atorvastatin Calcium 40 Mg Tablet) 40 mg PO DAILY COUNTS INCLUDE 234 BEDS AT THE [facility] Last Admin: 08/12/25 08:00 Dose: 40 mg Calcium Carbonate (Calcium Carbonate 750 Mg Tab.Chew) 750 mg PO Q4H PRN PRN Reason: Heartburn Enoxaparin Sodium (Enoxaparin Sodium 40 Mg/0.4 Ml Syringe) 40 mg SUBCUT Q24H COUNTS INCLUDE 234 BEDS AT THE [facility] Last Admin: 08/11/25 17:26 Dose: 40 mg Magnesium Hydroxide (Milk Of Magnesia 30 Ml Oral.Susp) 30 ml PO DAILY PRN PRN Reason: Constipation Melatonin (Melatonin 3 Mg Tablet) 6 mg PO BEDTIME PRN PRN Reason: Insomnia Home Medications ?Medication ?Instructions ?Recorded ?Confirmed ?Last Taken ?Type gabapentin 300 mg capsule 300 mg PO BID 09/21/2008/1110/15/23 History nitroglycerin 0.4 mg sublingual 0.4 mg sublingual D IRECTED 06/19/21 08/11/25 Unknown History tablet diclofenac sodium 1 % topical gel 2 g topical BID 06/2608/11/25 10/15/23 History gabapentin 100 mg capsule 100 mg PO BEDTIME 07/13/2110/12/24 10/15/23 History loratadine 10 mg tablet 10 mg PO BEDTIME 05/14/2210/15/23 History calcium carbonate (Antacid 500 mg PO DAILY 06/27/2210/15/23 History (calcium carbonate)) cholecalciferol (vitamin D3) 25 25 mcg PO DAILY 08/11/25 10/15/23 History mcg (1,000 unit) capsule acetaminophen 650 mg 650 mg PO Q8H PRN pain 10/1608/11/25 Unknown History tablet,extended release potassium chloride 10 mEq 10 meq PO BID 10/16/2308/1110/15/23 History tablet,extended release(part/cryst) (Klor-Con M) rosuvastatin 40 mg tablet 40 mg PO DAILY 10/16/2307/2608/11/25 History amlodipine 5 mg tablet 5 mg PO DAILY 12/02/2308/1108/11/25 History cyanocobalamin (vitamin B-12) 1,000 mcg PO DAILY 01/0208/11/25 Unknown History 1,000 mcg tablet (Vitamin B-12) lidocaine 5 % topical patch 1 patch topical DAILY 06/2608/11/25 Unknown History prednisolone acetate 1 % eye 1 drp ophthalmic (eye) BI D 07/12/25 08/11/25 Unknown History drops,suspension fluticasone propionate 50 2 spray intranasal DAILY 12/1808/11/25 Unknown History mcg/actuation nasal spray,suspension clonazepam 0.5 mg tablet 0.5 mg PO BID 08/11/2508/11 Unknown History ensifentrine 3 mg/2.5 mL 3 mg inhalation BID 08/11/25 08/11/25 Unknown History suspension for nebulization (Ohtuvayre) Physical Exam 2 Vital Signs: Vital Signs: Last Vital Signs Temp 97.4 F 08/12/25 08:27 Pulse 63 08/12/25 08:27 Resp 16 08/12/25 08:27 BP 160/61 H 08/12/25 08:27 Pulse Ox 100 08/12/25 08:27 O2 Del Method Room Air 08/12/25 08:27 BMI result Body Mass Index 25.5 Neuro: Other: Mental Status: Alert and oriented to person, place, and time. Normal attention. Normal spontaneous speech, fluency, and comprehension. Cranial Nerves: CN II: Visual trujillo full to confrontation, visual acuity intact. CN III, IV, : Pupils equal, round, reactive to light and accommodation. Extraocular movements are normal. CN V: Facial sensation is normal. CN VII: Facial movements symmetrical. CN VIII: Hearing intact to bedside conversation is normal. CN IX, X: Palate elevates symmetrically. CN XI: Shoulder shrug and head turn symmetrical. CN XII: Tongue midline without atrophy or fasciculations. Motor: No obvious focal weakness. Reflexes: Deep tendon reflexes 1+ with flexor plantars. Coordination: [id number] is okay. Extrapyramidal: Full facial expressions and blinking. No rigidity. Movements are appropriate with no tremor or abnormality. Speech: Normal; no dysarthria or tremor. Results Labs 08/11/25 11:47 08/11/25 11:47 Labs: Short CBC 08/11/25 Range/Units 11:47 WBC 8.0 (4.8-10.8) X10*3/uL Hgb 11.3 L (12.0-16.0) g/dl Hct 34.9 L (37.0-47.0) % Plt Count 187 (160-400) X10*3/uL BMP 08/11/25 11:47 Sodium 138 Potassium 4.0 Chloride 107 Carbon Dioxide 25 BUN 16 Creatinine 0.80 Calcium 9.0 D Liver Function 08/11/25 Range/Units 11:47 Total Bilirubin 0.3 (0.0-1.0) mg/dL Direct Bilirubin 0.2 (0.0-0.5) mg/dL AST 27 (5-31) U/L ALT 27 (0-31) U/L Alkaline Phosphatase 75 (39-117) U/L Albumin 3.6 (3.5-5.0) g/dL Urine 08/11/25 Range/Units 17:45 Urine Color Yellow Urine Appearance Clear Urine pH 8.5 (5.0-9.0) Ur Specific [place] >= 1.030 H (1.005-1.025) Urine Protein Negative (Neg-Trace) mg/dL Urine Glucose (UA) Negative (Negative) mg/dL EXAMINATION: CTA NECK WITH CONTRAST (STROKE) CTA BRAIN WITH CONTRAST (STROKE) EXAMINATION: CT ANGIOGRAM HEAD AND NECK CLINICAL INFORMATION: Left arm and leg weakness COMPARISON: 08/15/2024 and 08/15/2020 TECHNIQUE: Noncontrast axial imaging of the head was performed. This was followed by test bolus sequences and head and neck intravenous bolus administration of 70mL of Omnipaque 350. Helical imaging was performed in the axial plane from the aortic arch to the skull vertex. The data was processed at the clinical lab technologist's workstation for generation of MIP sequences. Angled MIPs and volume rendered reformatted images were also generated at an offline 3D workstation. Stenoses are assessed in accordance with NASCET criteria unless otherwise indicated. This CT examination was performed using dose optimization techniques as appropriate, variously including the following: *Automated exposure control *Adjustment of mA and/or kV according to patient size (this includes techniques or standardized protocols for targeted exams where dose is matched to indication/reason for exam; i.e. extremities or head) *Use of iterative reconstruction technique FINDINGS: Motion mildly degrades the study. NECK CTA: -AORTIC ARCH: Normal in caliber. Mild atheromatous calcification. Two-vessel branching pattern, bovine arch. -GREAT VESSEL ORIGINS: Widely patent. No stenosis. -RIGHT COMMON CAROTID ARTERY: Normal in course and caliber to the level of the bifurcation. -CERVICAL RIGHT INTERNAL CAROTID ARTERY: Mild atherosclerotic calcification is present in the carotid bulb. -LEFT COMMON CAROTID ARTERY: Normal in course and caliber to the level of the bifurcation. -CERVICAL LEFT INTERNAL CAROTID ARTERY: Moderate calcific atherosclerotic disease of the carotid bulb and proximal internal carotid artery is similar to the prior. -CERVICAL RIGHT VERTEBRAL ARTERY: Codominant. Focal atherosclerotic calcification is present at the origin. Normal in course and caliber into the skull base. -CERVICAL LEFT VERTEBRAL ARTERY: Codominant. Mild arthritic calcification is present at the origin. Normal in course and caliber into the skull base. OTHER, SOFT TISSUES: -No lymphadenopathy or mass. No abnormal fluid collection or soft tissue swelling. -Multiseptated cystic and solid nodule in the left thyroid gland is stable since 2019. -Imaged superior mediastinal structures normal. -Imaged lung apices clear. CTA OF THE BRAIN: -INTRACRANIAL INTERNAL CAROTID ARTERIES: No focal stenosis or occlusion. Mild multifocal arthritic ossifications are similar to the prior. -RIGHT ANTERIOR CEREBRAL ARTERY: Normal A1 segment.. Normal arborization of the distal segments. -LEFT ANTERIOR CEREBRAL ARTERY: Normal A1 segment.. Normal arborization of the distal segments. -ANTERIOR COMMUNICATING ARTERY: Present. -RIGHT MIDDLE CEREBRAL ARTERY: Normal M1 segment of the MCA without focal stenosis or occlusion. Normal bifurcation. Normal arborization of the distal segments. -LEFT MIDDLE CEREBRAL ARTERY: Normal M1 segment of the MCA without focal stenosis or occlusion. Normal bifurcation. Normal arborization of the distal segments. -RIGHT VERTEBRAL ARTERY V4: Normal in course and caliber. -LEFT VERTEBRAL ARTERY V4: Normal in course and caliber. -BASILAR ARTERY: Normal without focal stenosis or occlusion. Normal appearance of the proximal superior cerebellar arteries. Normal basilar tip. -RIGHT POSTERIOR CEREBRAL ARTERY: Normal P1 segment. There is focal narrowing, less than 50%, at the origin of the P2P division, unchanged. -LEFT POSTERIOR CEREBRAL ARTERY: Normal P1 segment. No hemodynamically significant stenosis. -POSTERIOR COMMUNICATING ARTERIES: Right is not seen. Left appears intact. Normal opacification of the superior sagittal, straight, transverse, and sigmoid sinuses. No venous thrombosis. No space-occupying hemorrhage or definite evolving infarct. CT/CT angio head neck STROKE IMPRESSION: CTA NECK: No hemodynamically significant stenosis, stable exam. CTA HEAD: No hemodynamically significant stenosis, stable exam. MR BRAIN WITHOUT CONTRAST CLINICAL INFORMATION: H 93.13. Tinnitus. COMPARISON: None available. TECHNIQUE: MRI of the brain was obtained using routine sequences without contrast. Axial T2 3-D space and MPR coronal at the IAC. FINDINGS: No restricted diffusion. No acute intracranial hemorrhage, mass effect, midline shift, hydrocephalus or herniation. Bilateral multifocal patchy and punctate subcortical and deep periventricular white matter hyperintense T2 FLAIR signal involving centrum semiovale and chow radiata as well as basal ganglia, and brain stem mostly dionne. Flow-void signal within the main cerebral vessels is normal. Normal position of the internal jugular bulb. Anterior inferior cerebellar arteries are type I, bilaterally. No soft tissue signal abnormality within the ocular vestibular components of the 8th cranial nerves. No gross signal abnormality within the cerebellopontine angle cisterns or at the porus acusticus. Craniocervical junction demonstrates normal position of the cerebellar tonsils. Sellar/suprasellar region demonstrates no signal abnormality or gross masses. Prominence of the extra-axial CSF spaces cerebral sulci and ventricles likely central volume loss and age-related.. MR/MR head/brain wo con IMPRESSION: No acute stroke/nonhemorrhagic ischemia. White matter disease likely related to small vessel occlusive disease. No gross masses in the cerebellopontine angle cisterns for the 8th cranial nerves. No gross vascular abnormalities in the posterior cranial fossa.. Assessment and Plan (1) Left-sided weakness: Status: Acute 84 years old woman with moderate chronic microvascular ischemic changes and cerebral degeneration with pattern of Alzheimer, who probably also had migraine though not that severe, presented with left-sided numbness that was slowly spreading followed by headache. These features were suggestive of migraine as the cause of this numbness and headache. She had presented with similar symptoms in 2023. Seizure disorder is another possibility but that seems less likely. Another ischemic stroke is another possibility but also seems less likely. My recommendation is to obtain an EEG to rule out seizure disorder. As far as vascular disease is concerned, treatment is blood pressure control, anti- platelet agents and statin. Procedures Date of Service Date of Service: 08/12/25
[2025-08-12] MEDS: Metoprolol Succinate ER 25 MG TAB.ER.24H PO (12:29)
[2025-08-12] MEDS: Potassium Chloride ER 10 MEQ TABLET.ER PO ×2 (12:29→21:03)
[2025-08-12] MEDS: Lidocaine 4 % Patch ADH..PATCH 1 PATCH TRANSDERMA (12:30)
--- NOTE | 2025-08-12 14:30 | W.MHC.F2F ---
Service Date Service Date: 08/12/25 Encounter Date of encounter: 08/12/25 Reasons for Services Signs and symptoms assessed: left sided weakness Reason for physical therapy: home safety and mobility and therapeutic exercises Homebound: Leaving the home is medically contraindicated at this time without the asist of a device and/or another person due th the listed conditions above and below. Reason homebound: weakness related to hospital stay Homebound supporting statement: homebound due to left sided weakness, cognitive issues and therefore needs the assistance of another person Certification: Based on the above findings, I certify that this patient is confined to the home and needs intermittent care home care, physical therapy and/or speech therapy, or continues to need occupational therapy. The patient is under my care, and I have initiated the establishment of the plan of care. The patient will be followed by a physician who will periodically review the plan of care. Time Spent With Patient Time: Total time managing care of this patient today ____ minutes.
--- NOTE | 2025-08-12 14:34 | MHC.CM.PN ---
Addendum entered by Tresa uJles 08/12/25 14:40: PT is recommending home PT and MD completed a face to face; Patient has [employer] insurance and a referral has been made to [facility]. Original Note: Patient has been medically cleared for dc to home today, self care.
[2025-08-13 03:15] VITALS: BP 132/60; PULSE 51; RESP 14; TEMP 36.3; O2SAT 99
[2025-08-13 07:42] VITALS: BP 137/60; PULSE 56; RESP 18; TEMP 36.5; O2SAT 97
[2025-08-13] MEDS: Aspirin Enteric Coated 81 MG TABLET.DR PO (08:16)
[2025-08-13 08:17] VITALS: BP 137/60; PULSE 56
[2025-08-13] MEDS: Metoprolol Succinate ER 25 MG TAB.ER.24H PO (08:17)
[2025-08-13] MEDS: Potassium Chloride ER 10 MEQ TABLET.ER PO (08:17)
[2025-08-13] MEDS: Lidocaine 4 % Patch ADH..PATCH 1 PATCH TRANSDERMA (08:18)
--- NOTE | 2025-08-13 10:26 | MHC.CM.PN ---
Per ROUNDS, Patient will dc to home today; NA is aware.
--- NOTE | 2025-08-13 11:20 | P.DS_ITS ---
DS: Providers Provider Date of admission: 08/11/25 14:50 Date of discharge: 08/13/25 Primary care physician: Feroz Reyes MD Consults: 08/11/25 16:05 Consult to Neurology Routine Consulting Provider: [facility] Reason for consultation: TIA DS: Diagnosis Discharge Diagnosis (1) Left-sided weakness: Status: Acute DS: Summary Hospital Course Hospital Course: admission hpi Chief Complaint: left sided weakness A 84-year-old female with a medical history significant for hyperlipidemia, paresthesias, prior DVT and pulmonary embolism, gastritis, anemia, hypertension, h/o colon resectionn and GERD presented to the emergency department with acute onset left-sided numbness and weakness. Her NIH Stroke Scale score was 4. CT head and CT angiogram of the head and neck showed no acute abnormalities. Laboratory studies were unremarkable. She similar presentation in Sep 2023 and work up was negative for stroke. She's been observed for stroke or TIA. Hospital course: She presented with transient weakness on left side similar to previous hospitalization when work up for stroke was negative, CT Head and CTA was negative again, Neurology saw and raised the possibility of seizure and recommends EEG which showed Abnormal EEG suggestive of underlying risk for partial to complex partial seizure disorder and is started on Keppra 500 mg twice daily and to follow up with Neurologist, Dr. salcedo Time Attestation Discharge Coordination Time (in mins): 40 Quality: Safe Use of Opioids Does Pt have an Active Cancer Diagnosis on the Problem List?: No Quality: Stroke Does the patient have a stroke diagnosis?: No Physical Exam Vital Signs: Vital Signs: Selected Entries 08/13/25 07:42 Temperature 97.7 F Pulse Rate 56 Respiratory Rate 18 Blood Pressure 137/60 Pulse Oximetry 97 Oxygen Delivery Me thod Room Air DS: Data Data Completed and Pending Labs on day of discharge: Laboratory Results - last 24 hr 08/11/25 08/11/25 08/12/25 11:47 17:45 04:26 Troponin I High Sens 4.9 Triglycerides 75 Cholesterol 137 LDL Cholesterol, Calc 70 HDL Cholesterol 52 Urine Color Yellow Urine Appearance Clear Urine pH 8.5 Ur Specific [place] >= 1.030 H Urine Protein Negative Urine Glucose (UA) Negative Urine Ketones Negative Urine Blood Negative Urine Nitrite Negative Ur Leukocyte Esterase Negative Discharge Plan Discharge Anticipated Discharge Date/Time: 08/13/25 11:18 Patient Disposition: Home Health Service Discharge Diagnosis: transient left sided weakness, partial seizure on eeg Referrals: [facility] [Other] - 1 Week Octaviano Salcedo MD [Physician, Neurology] - 2 Weeks Feroz Reyes MD [Primary Care Provider, Internal Medicine] - 1 Week Discharge Medications: New levetiracetam [Roweepra] 500 mg tablet 500 mg PO BID Qty: 180 0RF Continued metoprolol succinate 25 mg tablet extended release 24 hr 25 mg PO DAILY Qty: 90 3RF gabapentin 300 mg capsule 300 mg PO BID nitroglycerin 0.4 mg tablet, sublingual 0.4 mg sublingual DIRECTED loratadine 10 mg tablet 10 mg PO BEDTIME gabapentin 100 mg Capsule 100 mg PO BEDTIME diclofenac sodium 1 % Gel 2 g TOPICAL BID cyanocobalamin (vitamin B-12) [Vitamin B-12] 1,000 mcg Tablet 1,000 mcg PO DAILY acetaminophen 650 mg tablet extended release 650 mg PO Q8H PRN (Reason: pain) potassium chloride [Klor-Con M10] 10 mEq tablet,ER particles/crystals 10 meq PO BID rosuvastatin 40 mg tablet 40 mg PO DAILY loperamide 2 mg capsule 2 mg PO Q4H PRN (Reason: loose stool) Qty: 14 0RF Rx Instructions: administer after each loose stool until symptoms controlled; do not exceed 8 mg per 24 hrs Ohtuvayre 3 mg/2.5 mL suspension for nebulization 3 mg INHALATION BID clonazepam 0.5 mg tablet 0.5 mg PO BID calcium carbonate [Antacid (calcium carbonate)] 200 mg calcium (500 mg) tablet,chewable 500 mg PO DAILY cholecalciferol (vitamin D3) 25 mcg (1,000 unit) capsule 25 mcg PO DAILY amlodipine 5 mg tablet 5 mg PO DAILY Protocol: Hold for SBP< HOLD for SBP < : 90 prednisolone acetate 1 % drops,suspension 1 drp ophthalmic (eye) BID lidocaine 5 % adhesive patch,medicated 1 patch topical DAILY fluticasone propionate 50 mcg/actuation spray,suspension 2 spray intranasal DAILY Discharge Orders: Discharge Order (Routine); Ordered 08/12/25 Ordered By: Donny Pate Diet: Advance to usual diet Activity on Discharge: As tolerated Stand Alone Forms: Patient Portal Discharge page Print Language: Mohawk Care Plan Goals: recovery from left sided weakness and seizure Health Concerns: left sided weakness and seizure Plan of Treatment: take manuel for seizure, forllow up with Dr. Salcedo Neurologist follow up with your PCP Assessment: see above
[2025-08-13 12:00] VITALS: BP 112/55; PULSE 54; RESP 18; TEMP 36.3; O2SAT 99
[2025-08-13 15:56] VITALS: BP 120/58; PULSE 53; RESP 18; TEMP 36.3; O2SAT 97
== END 2025-08-13 16:15 | disposition home health service (06) ==
LOC: HO.ED 11:49 → HO.EDOVER 14:57 → HO.S3 15:14 → HO.EDOVER 15:44 → HO.IMC 08-12 07:50
PROVIDERS: Admitting Provider Student in an Organized Health Care Education/Training Program; Emergency Provider Emergency Medicine Emergency Medical Services; PCP Internal Medicine; Visit Provider Internal Medicine
DX: R53.1 Weakness (principal); R51.9 Headache, unspecified; R20.0 Anesthesia of skin; R20.2 Paresthesia of skin; G31.9 Degenerative disease of nervous system, unspecified; E78.5 Hyperlipidemia, unspecified; I10 Essential (primary) hypertension; K21.9 Gastro-esophageal reflux disease without esophagitis; D64.9 Anemia, unspecified; R94.01 Abnormal electroencephalogram [EEG]; Z86.718 Personal history of other venous thrombosis and embolism; Z86.711 Personal history of pulmonary embolism; Z79.899 Other long term (current) drug therapy
CPT/HCPCS: 36415; 70450; 70496; 70498; 80048; 80061; 80076; 81003; 82947; 84484; 85025; 85610; 85730; 93005; 95819; 96372; 97161; 97166; 97535; 99222; 99285; J1650; Q9967

== ENCOUNTER → 2025-08-11 11:13 | Outpatient (BNV) | payer OTHER, MEDICAID, SELFPAY | PROVIDERS: Emergency Provider Emergency Medicine Emergency Medical Services; PCP Internal Medicine; Visit Provider Radiology Diagnostic Radiology | DX: R53.1 Weakness (principal) | CPT/HCPCS: 70450; 70496; 70498 ==

== ENCOUNTER → 2025-08-11 11:13 | Outpatient (BNV) | payer OTHER, MEDICAID, SELFPAY | PROVIDERS: Admitting Provider Student in an Organized Health Care Education/Training Program; Emergency Provider Emergency Medicine Emergency Medical Services; PCP Internal Medicine; Visit Provider Internal Medicine Cardiovascular Disease | DX: R53.1 Weakness (principal) | CPT/HCPCS: 93010 ==

== ENCOUNTER 2025-08-11 14:50 | Outpatient (BNV) | payer OTHER, MEDICAID, SELFPAY | END 2025-08-12 13:00 | PROVIDERS: Admitting Provider Student in an Organized Health Care Education/Training Program; Emergency Provider Emergency Medicine Emergency Medical Services; PCP Internal Medicine; Visit Provider Psychiatry & Neurology Neurology | DX: R94.01 Abnormal electroencephalogram [EEG] (principal) | CPT/HCPCS: 95819 ==

== ENCOUNTER → 2025-08-11 14:50 | Outpatient (BNV) | payer OTHER, MEDICAID, SELFPAY | PROVIDERS: Admitting Provider Student in an Organized Health Care Education/Training Program; Emergency Provider Emergency Medicine Emergency Medical Services; PCP Internal Medicine; Visit Provider Internal Medicine | DX: R53.1 Weakness (principal); R20.0 Anesthesia of skin; R56.9 Unspecified convulsions; R94.01 Abnormal electroencephalogram [EEG] | CPT/HCPCS: 99222; 99239; G0180 ==

== ENCOUNTER → 2025-08-11 14:50 | Outpatient (BNV) | payer OTHER, MEDICAID, SELFPAY | PROVIDERS: Admitting Provider Student in an Organized Health Care Education/Training Program; Emergency Provider Emergency Medicine Emergency Medical Services; PCP Internal Medicine; Visit Provider Psychiatry & Neurology Neurology | DX: R53.1 Weakness (principal) | CPT/HCPCS: 99222 ==

== ENCOUNTER 2025-08-17 14:41 | Outpatient (AMB) | payer OTHER, MEDICAID, SELFPAY ==
--- NOTE | 2025-08-17 14:45 | A.OFFVIS_ITS ---
Intake Visit Reasons: hospital follow up Accompanied by: Grand Child Allergies latex Allergy (Severe, Verified 08/17/25 16:00) Rash Latex Gloves Allergy (Severe, Uncoded 08/17/25 16:00) rash Anjali spice Allergy (Severe, Uncoded 08/17/25 16:00) Rash Medication List - Last Reconciled 08/17/25 by Neda Bright CNP acetaminophen ER 650 mg PO Q8H PRN amlodipine 5 mg See Protocol PO DAILY calcium carbonate (Antacid (calcium carbonate)) 500 mg PO DAILY cholecalciferol (vitamin D3) 25 mcg PO DAILY clonazepam 0.5 mg PO BID cyanocobalamin (vitamin B-12) (Vitamin B-12) 1,000 mcg PO DAILY diclofenac sodium 1% 2 grams topical BID ensifentrine (Ohtuvayre) 3 mg inhalation BID fluticasone propionate 50 mcg/actuation 2 sprays intranasal DAILY gabapentin 300 mg PO BID gabapentin 100 mg PO BEDTIME levetiracetam (Roweepra) 500 mg PO BID lidocaine 5% 1 patch topical DAILY loperamide 2 mg PO Q4H PRN loratadine 10 mg PO BEDTIME metoprolol succinate ER 25 mg PO DAILY nitroglycerin 0.4 mg sublingual DIRECTED potassium chloride ER (Klor-Con M) 10 mEq PO BID prednisolone acetate 1% 1 drp ophthalmic (eye) BID rosuvastatin 40 mg PO DAILY HPI Comments Details: She presented to [facility] on 08/11/2025 with left sided numbness and weakness. She had head CT and CTA head/neck, no acute findings. EEG was suggestive of underlying risk for partial to complex partial seizure disorder. She was started on levetiracetam 500mg twice a day. She has been taking medication, but medication was making her very tired. She was still complaining of some left sided numbness and weakness. Walking with walker, no falls. No significant headaches or dizziness. Tinnitus was unchanged. Completed PT. Chronic LBP with occasional radiation down left leg and some intermittent numbness/tingling. Epidural injections help. Tinnitus in both ears when standing only once in a while now and not like it was before. It was mostly when laying back like before. She was taking clonazepam at bedtime which helped some, no medication side effects. Occasional dizziness and headaches. She had two falls between 10/2024-04/2025, the first was in 11/2024 when a heavy fireproof door closed on her, causing her to fall and hit her head. She went to the ER the following day primarily for GI symptoms, but reported the fall and had CT head/neck. She was unsure when second fall was, possibly in 12/2024 or 02/2025 when she slipped on tile in kitchen and hit head on door when she fell. No LOC, but was slightly dizzy upon standing. She did not go to hospital. Tinnitus in both ears has slightly worsened after fall. It was happening when sitting and standing, as well as laying down. Previously, it only happened when laying flat and improved when head was elevated. Hearing was about the same. She apparently had hearing test and was told she may need hearing aids. In the past, tinnitus had gotten a bit better, but was still there when laying down flat. It was only happening flat and improved when lying when head elevated. No tinnitus when sitting or standing. Tinnitus louder after falling and hitting R occipital area of head on 05/06/2023.?She developed steady humming in her head on lying down, it gets quite loud and interferes with sleep. If she sits up, it goes away. It is not pulsatile. It is not related to neck position or movement. No dizziness. Was seen at [facility] ER 09/2023 for 2-3 weeks of L sided weakness and numbness/tingling. [facility] Medical History Chronic neck and back pain Hx of flexible sigmoidoscopy (~2017) Hx of diverticulitis of colon Hyperlipidemia Paresthesia Dark stools Pulmonary embolism Chest discomfort Abnormal EKG PAC (premature atrial contraction) Renal cyst Gastritis DVT (deep venous thrombosis) (~2017) Anemia HTN (hypertension) GERD (gastroesophageal reflux disease) Surgical History Hx of colonoscopy History of esophagogastroduodenoscopy (EGD) History of laparoscopic cholecystectomy History of colon resection (~2017) Family History Father No problems noted. Mother No problems noted. Social History Household Members: None Housing: Apartment Are you a primary primary health care nurse to a significant other at home: No Do you presently have visiting nurse or other home services: Yes Alcohol intake: never Patient Tobacco Use Status: Never used Tobacco Advance Directives Date on File: 10/21/23 service: No Current occupational status: retired Review of Systems Const Denies chills, Denies daytime sleepiness, Denies difficulty sleeping, Denies fatigue, Denies fever(s), Denies frequent falls, Reports headache(s), Denies increased appetite, Denies poor appetite, Denies snoring, Denies weakness, Denies weight gain and Denies weight loss Eyes Denies loss of vision ENT Denies vertigo, Denies dizziness, Reports headache(s), Reports neck pain and Reports tinnitus Card Denies chest pain at rest, Denies chest pain with activity, Denies syncope, Denies leg edema, Denies palpitations, Denies dyspnea and Denies dyspnea on exertion Resp Denies cough, Denies dyspnea, Denies dyspnea on exertion and Denies snoring GI Denies abdominal pain, Denies constipation, Denies heartburn, Denies diarrhea and Denies nausea Denies urinary frequency, Denies urinary incontinence and Denies urinary urgency Musc Denies abnormal gait, Reports back pain, Reports myalgias, Denies arthralgias, Reports neck pain, Denies numbness and Denies tingling Neuro Denies abnormal gait, Denies vertigo, Denies dizziness, Denies syncope, Denies frequent falls, Reports headache(s), Denies lack of coordination, Denies loss of vision, Denies memory loss, Denies numbness, Denies Other visual disturbances, Denies restless legs, Denies seizure-like activity, Denies tingling, Denies par esthesias, Denies tremor(s) and Denies weakness Psych Reports anxiety, Denies depression, Denies auditory hallucinations, Denies memory loss and Denies visual hallucinations Endo Denies fatigue and Denies palpitations Physical Exam Const Other: General Appearance:? normal, in no acute distress. Heart:? S1, S2 normal, no murmurs. Lungs:? clear anteriorly and posteriorly. Musculoskeletal:? normal. Extremities:? no edema. Psych:? alert, oriented, cognitive function intact, cooperative with exam. Neuro Other: Abnormal Neurological Findings:?Generalized left sided weakness, DTRs brisk. Walking with walker. Mental Status: alert and oriented X 3. Normal attention, orientation, memory, and affect. Cranial Nerves: Pupils are equal, round, and reactive to light. External ocular muscles are intact. Visual trujillo are full, no ptosis. Face is symmetrical, no facial weakness or droop. Facial sensations are normal. Tongue protrudes in midline. Palate elevates symmetrically. Shoulder shrugging is normal Motor Examination: As above, DTRs brisk. Sensory Exam: Normal light touch, temperature, pinprick, vibration, and joint- position sensations. Rhomberg sign is absent. Coordination: No ataxia. No titubation. Gait Exam: With walker. Cerebellar Signs: [id number] is okay. Extrapyramidal System: No tremor, rigidity with normal facial expressions. No bradykinesia. No bradyphrenia. Normal arm swing and posture. No propulsion or retropulsion. Speech: Normal. Results Reviewed Results Reviewed: [place] [address] Electroencephalogram Report Signed Patient: Prema Carpenter MR#: [id number] : 1940 Acct:[id number] Age/Sex: 84 / F ADM Date: 08/11/25 Loc: [facility] 459-[address]: Donny Pate MD Ordering Physician: Donny Pate MD Date of Service: 08/12/25 Procedure(s): EEG Routine Accession Number(s): [id number] cc: THEO KHAN MD~ Reason for Exam: ? seizure History: 84-year-old female with a medical history significant for hyperlipidemia, paresthesias, prior DVT and pulmonary embolism, gastritis, anemia, hypertension, h/o colon resectionn and GERD presented to the emergency department with acute onset left-sided numbness and weakness. I would noted that she has presented with similar symptom in 2023. She had an MRI done in May that did not reveal any acute abnormality. It revealed moderate chronic microvascular ischemic type of changes. It also revealed moderate atrophy that was more pronounced in biparietal areas and cerebellum. She presented with numbness and tingling that started in left side of the head and face and in few sec travel to her left arm or leg. She had a headache afterwards and even this morning she took some Tylenol for headache. She denied having frequent headaches but also admitted that she sometime had migraine headaches. Medication: gabapentin, nitroglycerin, diclofenac sodium, gabapentin, loratadine, calcium carbonate, cholecalciferol (vitamin D3), acetaminophen, potassium chloride, rosuvastatin, amlodipine, cyanocobalamin (vitamin B-12), lidocaine, prednisolone acetate, fluticasone propionate, clonazepam, ensifentrine Technical Description Photic Stimulation: completed Hyperventilation: omitted Behavioral State: pleasant State of Consciousness: awake and sleep Skull Defect: none Sedation: no Handedness: right Duration: 25 min 43 sec Global Marketing Coordinator Comments: Last Meal: 08/12/25 1pm Time / date of last symptom: 08/11/25 Description: This is a 16 channel EEG with an EKG lead. Patient is reported awake and sleep during the tracing. Background EEG rhythm, when awake, is symmetric alpha posteriorly and lower amplitude fast anteriorly. Patient transitioned into drowsiness with slowing. Intermittently left temporal area sharply controlled theta range discharges were noted. Rarely similar pattern was noted on the right side but it was not as well developed. Photic stimulation did not produce any significant driving. Hyperventilation was not performed. Cardiac lead did not reveal any significant abnormality. Impression: Abnormal EEG suggestive of underlying risk for partial to complex partial seizure disorder. Dictated By: Octaviano Salcedo MD Signed By: <Electronically signed by Octaviano Salcedo MD> 08/12/[address] [address] [address] Scan Report Signed Patient: Prema Carpenter MR#: [id number] : 1940 Acct:[id number] Age/Sex: 84 / F ADM Date: 08/11/25 Loc: HO.ED Attending Dr: Ordering Physician: Demetrius Villanueva MD Date of Service: 08/11/25 Procedure(s): CT angio head neck STROKE Accession Number(s): [id number] cc: THEO KHAN MD; Demetrius Villanueva MD~ Report Number: [id number]: Total DLP = 0.00 mGy-cm Reason for Exam: Left arm and leg weakness rule out stroke EXAMINATION: CTA NECK WITH CONTRAST (STROKE) CTA BRAIN WITH CONTRAST (STROKE) EXAMINATION: CT ANGIOGRAM HEAD AND NECK CLINICAL INFORMATION: Left arm and leg weakness COMPARISON: 08/15/2024 and 08/15/2020 TECHNIQUE: Noncontrast axial imaging of the head was performed. This was followed by test bolus sequences and head and neck intravenous bolus administration of 70mL of Omnipaque 350. Helical imaging was performed in the axial plane from the aortic arch to the skull vertex. The data was processed at the architectural technologist's workstation for generation of MIP sequences. Angled MIPs and volume rendered reformatted images were also generated at an offline 3D workstation. Stenoses are assessed in accordance with NASCET criteria unless otherwise indicated. This CT examination was performed using dose optimization techniques as appropriate, variously including the following: *Automated exposure control *Adjustment of mA and/or kV according to patient size (this includes techniques or standardized protocols for targeted exams where dose is matched to indication/reason for exam; i.e. extremities or head) *Use of iterative reconstruction technique FINDINGS: Motion mildly degrades the study. NECK CTA: -AORTIC ARCH: Normal in caliber. Mild atheromatous calcification. Two-vessel branching pattern, bovine arch. -GREAT VESSEL ORIGINS: Widely patent. No stenosis. -RIGHT COMMON CAROTID ARTERY: Normal in course and caliber to the level of the bifurcation. -CERVICAL RIGHT INTERNAL CAROTID ARTERY: Mild atherosclerotic calcification is present in the carotid bulb. -LEFT COMMON CAROTID ARTERY: Normal in course and caliber to the level of the bifurcation. -CERVICAL LEFT INTERNAL CAROTID ARTERY: Moderate calcific atherosclerotic disease of the carotid bulb and proximal internal carotid artery is similar to the prior. -CERVICAL RIGHT VERTEBRAL ARTERY: Codominant. Focal atherosclerotic calcification is present at the origin. Normal in course and caliber into the skull base. -CERVICAL LEFT VERTEBRAL ARTERY: Codominant. Mild arthritic calcification is present at the origin. Normal in course and caliber into the skull base. OTHER, SOFT TISSUES: -No lymphadenopathy or mass. No abnormal fluid collection or soft tissue swelling. -Multiseptated cystic and solid nodule in the left thyroid gland is stable since 2019. -Imaged superior mediastinal structures normal. -Imaged lung apices clear. CTA OF THE BRAIN: -INTRACRANIAL INTERNAL CAROTID ARTERIES: No focal stenosis or occlusion. Mild multifocal arthritic ossifications are similar to the prior. -RIGHT ANTERIOR CEREBRAL ARTERY: Normal A1 segment.. Normal arborization of the distal segments. -LEFT ANTERIOR CEREBRAL ARTERY: Normal A1 segment.. Normal arborization of the distal segments. -ANTERIOR COMMUNICATING ARTERY: Present. -RIGHT MIDDLE CEREBRAL ARTERY: Normal M1 segment of the MCA without focal stenosis or occlusion. Normal bifurcation. Normal arborization of the distal segments. -LEFT MIDDLE CEREBRAL ARTERY: Normal M1 segment of the MCA without focal stenosis or occlusion. Normal bifurcation. Normal arborization of the distal segments. -RIGHT VERTEBRAL ARTERY V4: Normal in course and caliber. -LEFT VERTEBRAL ARTERY V4: Normal in course and caliber. -BASILAR ARTERY: Normal without focal stenosis or occlusion. Normal appearance of the proximal superior cerebellar arteries. Normal basilar tip. -RIGHT POSTERIOR CEREBRAL ARTERY: Normal P1 segment. There is focal narrowing, less than 50%, at the origin of the P2P division, unchanged. -LEFT POSTERIOR CEREBRAL ARTERY: Normal P1 segment. No hemodynamically significant stenosis. -POSTERIOR COMMUNICATING ARTERIES: Right is not seen. Left appears intact. Normal opacification of the superior sagittal, straight, transverse, and sigmoid sinuses. No venous thrombosis. No space-occupying hemorrhage or definite evolving infarct. CT/CT angio head neck STROKE IMPRESSION: CTA NECK: No hemodynamically significant stenosis, stable exam. CTA HEAD: No hemodynamically significant stenosis, stable exam. Results Delivered via [employer] to Dr. Villanueva at 12:10 pm EST. Electronically signed by: Mike Gambino MD 08/11/2025 12:11 PM EST RP Dictated By: Mike Gambino MD Signed By: <Electronically signed by Mike Gambino MD in OV> 08/11/[address] [place] [address] CT Scan Report Signed Patient: Prema Carpenter MR#: [id number] : 1940 Acct:[id number] Age/Sex: 84 / F ADM Date: 08/11/25 Loc: HO.ED Attending Dr: Ordering Physician: Demetrius Villanueva MD Date of Service: 08/11/25 Procedure(s): CT head for STROKE Accession Number(s): [id number] cc: Demetrius Villanueva MD~ Report Number: [id number]: Total DLP = 615.00 mGy-cm Reason for Exam: Left arm and leg weakness rule out stroke EXAMINATION: CT HEAD WITHOUT IV CONTRAST STROKE HISTORY: Left arm and leg weakness rule out stroke. TECHNIQUE: Unenhanced helical CT of the head was performed per standard departmental protocol. Coronal and sagittal reformats of the head were also evaluated. One or more of the following techniques was used for dose reduction: Automated exposure control, adjustment of the mA and/or kV according to patient size, use of iterative reconstruction technique. DLP: 615 mGy-cm COMPARISON: Previous head CT November 2024 FINDINGS: BRAIN: There is no evidence of an extra-axial collection. There is no evidence of intra or extra-axial hemorrhage. The ventricles and extra-axial CSF spaces are appropriate. There is mild nonspecific periventricular white matter change. No mass, mass effect or infarct. There is evidence of mild atherosclerotic disease. No dense vessel sign is seen. SINUSES: The visualized paranasal sinuses are clear. The mastoid air cells and middle ear cavities are well pneumatized. ORBITS: The visualized orbits are unremarkable. BONES/SOFT TISSUES: The extracranial soft tissues are unremarkable. The calvarium is intact. No suspicious lytic or sclerotic lesions. CT/CT head for STROKE IMPRESSION: No acute intracranial abnormality. Findings were communicated to Demetrius Perez by telephone 08/11/2025 at 11:30 AM. Electronically signed by: Dionna Albright MD 08/11/2025 11:34 AM [facility] Dictated By: Dionna Albright MD Signed By: <Electronically signed by Dionna Albright MD in OV> 08/11/25 1134 Laboratory Tests 08/11/25 11:47 WBC 8.0 RBC 3.88 L Hgb 11.3 L Hct 34.9 L MCV 89.9 MCH 29.1 MCHC 32.4 RDW 13.2 Plt Count 187 MPV 9.9 Sodium 138 Potassium 4.0 Chloride 107 Carbon Dioxide 25 Anion Gap 10 L BUN 16 Creatinine 0.80 Estim Creat Clear Calc 37.4 Estimated GFR > 60 Random Glucose 83 Calcium 9.0 D Total Bilirubin 0.3 Direct Bilirubin 0.2 AST 27 ALT 27 Alkaline Phosphatase 75 Troponin I High Sens 4.9 Total Protein 6.0 L Albumin 3.6 Triglycerides 61 Cholesterol 129 LDL Cholesterol, Calc 67 HDL Cholesterol 50 MRI brain 06/20/25: No acute stroke/nonhemorrhagic ischemia. White matter disease likely related to small vessel occlusive disease. No gross masses in the cerebellopontine angle cisterns for the 8th cranial nerves. No gross vascular abnormalities in the posterior cranial fossa. - chronic moderate microvascular ischemic changes including in brainstem CT Head at [facility] 11/25/2024: No acute intracranial findings. CT C-spine at [facility] 11/25/2024: Multilevel degenerative changes especially from C4-5 to C6-7. Facet arthropathy. C3-4 mild disc bulge. C4-5 small central disc herniation with calcification and mild canal stenosis. Mild spondylotic disc bulges C5-6 and C6-7. MRI brain at [facility] 09/2023: Negative CTA at [facility] 09/2023: No significant stenosis Assessment & Plan Assessment & Plan (1) Seizure disorder: Code(s): G40.909 - Epilepsy, unspecified, not intractable, without status epilepticus Category: Medical Plan: She was here with her granddaughter. MRI results reviewed - moderate chronic microvascular ischemic changes, moderate atrophy. Head CT and CTA head/neck reviewed - no significant findings. EEG results reviewed - abnormal EEG suggestive of underlying tendency for temporal irritability. They were educated on this condition, its symptoms, and treatment. She was prescribed levetiracetam 500mg 1 tablet twice a day, which she was taking, but medication was causing significant drowsiness. Decrease dose levetiracetam 500mg 1/2 tablet in the morning and 1 tablet at bedtime. If this does not help, can consider trying lamotrigine instead. Follow up in 3 months or sooner as needed. (2) Bilateral tinnitus: Code(s): H93.13 - Tinnitus, bilateral Category: Medical Plan: Continue clonazepam 0.5mg 1 tablet at bedtime. (3) Chronic neck and back pain: Code(s): M54.2 - Cervicalgia; M54.9 - Dorsalgia, unspecified; G89.29 - Other chronic pain Category: Medical (4) Cerebral microvascular disease: Code(s): I67.89 - Other cerebrovascular disease Category: Medical Plan: Control blood pressure, continue statin. Plan . Medications: Changed From levetiracetam (Roweepra) 500 mg PO BID 180 tabs 0RF To levetiracetam (Roweepra) 500 mg orally 1/2 tab in the morning and 1 tab at bedtime; 180 tabs 1RF 90 days Coding Level of Care Code Est Pt Level 4 (48567) Diagnoses Seizure disorder G40.909 Bilateral tinnitus H93.13 Chronic neck and back pain M54.2; M54.9; G89.29 Cerebral microvascular disease I67.89
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
--- OUTSIDE RECORDS SUMMARY | 2025-08-17 16:00 | XMS_ITS | Encounter Summary ---
Author Organization [facility] Address [address] [place] [address] Care Team Providers Care Pediatric Hospitalist Name Role Phone Feroz Reyes MD Primary Care Provider [phone] Encounter Details Date Type Department Care Team (Late st Contact Info) Description 07/14/2025 Results [facility] [address] [place] [address] Art Martinez, ZULEMA [address] [place] [address] Social History Tobacco Use Types Packs/Day Years [...] for your loved ones. For example, child advocate or elderly care for an older adult? [...] PM EST Office Visit Internal Medicine - [place] [address] [place] [address] Avelino Ca DO [address] [place] [address] 03/31/2026 10:30 AM EDT Appointment [facility] Ultrasound [address] [place] [address] 04/06/2026 10:30 AM EDT Office Visit Vascular Surgery - [place] [address] [place] [address] Karol Schafer MD [address] [place] [address] documented as of this encounter Visit Diagnoses Not on filedocumented in this encounter Additional Health Concerns Assessment Noted Time PHQ-9 Depression Total Score: 0 04/06/20 25 10:33 AM EDT documented as of this encounter Care Teams Pediatric Hospitalist Relationship Specialty Start Date End Date Feroz Reyes MD [address] [place] [id number] PCP - General Internal Medicine 09/29/20 documented as of this encounter
--- OUTSIDE RECORDS SUMMARY | 2025-08-17 16:00 | XMS_ITS | Encounter Summary ---
Author Organization [facility] Address [address] [place] [address] Care Team Providers Care Medical Planner Name Role Phone Feroz Reyes MD Primary Care Provider [phone] Reason for Visit * Reason Onset Date Comments Hospital Follow-up 08/16/2025 Encounter Details Date Type Department Care Team (Late st Contact Info) Description 08/16/2025 [facility] [address] [place] [phone] Feroz Reyes MD [address] [place] [phone] Social History Tobacco Use Types Packs/Day Years [...] for your loved ones. For example, child care lead teacher or elderly care for an older [...] Progress Notes * Patricia Valencia RN - 08/16/2025 11:10 AM EST Transitional Care Management Note: Non Apcz-ke-Nkfn Visit Patient: Prema Carpenter : 1940 PCP: Feroz Reyes MD Clinical Office Staff: Patricia Valencia RN Discharge date: 08/13/25 Situation: Prema Carpenter is a 84 y.o. female Patient discharged from: [facility]. Call Status: Completed with the patient. Background: Admission date: 08/11/25 Discharge date: 08/13/25 Patient discharged from: [facility] with discharge diagnosis ofStroke alert Assessment: The Patient's Patient able to complete routine daily activities: Yes Additional problems or concerns addressed: No Patient has written copy of discharge instructions: Yes Follow up appointment scheduled with PCP or specialist: Yes PCP Follow up appointment date: 08/23/25 Plan to attend the follow up appointment: Yes Barriers identified to miss the follow up appointment: No New prescriptions filled: Yes Taking medications as prescribed: Yes Patient has all medications as ordered: Yes Accurate patient teach back regarding plan of care, red flag symptoms, and when to seek treatment. Patient reports no additional questions/concerns/needs at this time, agrees to contact office if anyarise. Recommendations: TCM 08/23 Time spent with patient (minutes): 20 Patricia Valencia RN 08/16/2025 11:11 AM EST * Kiah Burgess - 08/16/2025 8:39 AM EST Hospital/ER follow up appointment needed Hospital patient was treated at: [facility] Was this only an ER visit or was the patient admitted to the hospital? Admitted to the hospital/kept overnight Date of visit if ER visit only: If patient was admitted what was the date of discharge? 08/13/25 Reason/diagnosis for visit or stay: numbness from face to her toes + tingling sensation within toes- was told by her pcp to go to the hospital --- hospital then placed pt. On stroke alert and testedfor seizures When was the patient told to follow up? Follow up within a week Was visit or stay related to an injury? If yes, what was the date of injury (DOI)? No If yes, was the injury due to: Not 3rd republican related documented in this encounter Plan of Treatment Upcoming Encounters Date Type Department Care Team (Late st Contact Info) Description 08/23/2025 1:30 PM EST Office Visit Internal Medicine - [address] [phone] Avelino Ca DO [address] [place] [address] 03/31/2026 10:30 AM EDT Appointment [facility] Ultrasound [address] [place] [phone] 04/06/2026 10:30 AM EDT Office Visit Vascular Surgery - [place] [address] [place] [phone] Karol Schafer MD [address] [place] [phone] documented as of this encounter Visit Diagnoses Not on filedocumented in this encounter Additional Health Concerns Assessment Noted Time PHQ-9 Depression Total Score: 0 07/27/20 25 9:48 AM EST documented as of this encounter Care Teams Medical Planner Relationship Specialty Start Date End Date Feroz Reyes MD [address] [place] [phone] PCP - General Internal Medicine 09/29/20 documented as of this encounter
--- OUTSIDE RECORDS SUMMARY | 2025-08-17 16:00 | XMS_ITS | Clinical Summary ---
Author Organization [facility] Address [address] [place] [phone] Phone Care Team Providers Care Refuse Collector Name Role Phone Feroz Reyes MD Primary Care Provider [phone] Allergies Active Allergy Reactions Criticality Noted Date [...] tablet 1 Tablet daily. 01/02/20 24 Active netarsudiL (Rhopressa) 0.02 % drops 05/08/20 24 Active loperamide (IMODIUM) 2 mg capsule Take 1 capsule (2 mg total) by mouth if needed. 09/01/19 25 Active prednisoLONE acetate (PRED FORTE) 1 % ophthalmic suspension Administer 1 drop into both eyes 2 (two) times a day. 02/05/20 25 Active amLODIPine (NORVASC) 5 mg tablet TAKE 1 TABLET BY MOUTH DAILY 90 tablet 1 03/15/20 25 Active potassium chloride (KLOR-CON) 10 mEq CR tablet TAKE 1 TABLET BY MOUTH TWICE DAILY 180 tablet 1 04/05/20 25 Active neomycin-polymyxin -dexamethamethason e (POLYDEX) 3.5 mg/g-10,000 unit/g-0.1 % ointment 04/20/20 25 Active clonazePAM (KlonoPIN) 0.5 mg tablet Take 1 tablet (0.5 mg total) by mouth 2 (two) times a day. Active nitroglycerin (NITROSTAT) 0.4 mg SL tabletIndications: Angina of effort (CMS/HCC V24) Place 1 tablet (0.4 mg total) under the tongue every 5 (five) minutes if needed for chest pain. 90 tablet 05/11/20 25 Active gabapentin (NEURONTIN) 300 mg capsule TAKE 1 CAPSULE BY MOUTH TWICE DAILY (in addition to 100 MG capsule at night) 180 capsule 1 06/15/20 25 Active gabapentin (NEURONTIN) 100 mg capsule Take 1 capsule (100 mg total) by mouth at bedtime. (In addition to a 300 mg capsule at night) 90 capsule 1 06/15/20 25 Active rosuvastatin (CRESTOR) 40 mg tablet TAKE 1 TABLET(40 MG) BY MOUTH 1 TIME EACH DAY 90 tablet 1 06/17/20 25 Active loratadine (CLARITIN) 10 mg tablet Take 1 tablet (10 mg total) by mouth 1 (one) time each day. 90 tablet 1 06/24/20 25 Active lidocaine (LIDODERM) 5 % patchIndications:C hronic midline low back pain without sciatica APPLY 1 PATCH TOPICALLY TO THE SKIN 1 TIME EACH DAY 30 patch 07/13/20 25 Active fluticasone propionate (FLONASE) 50 mcg/actuation nasal sprayIndications:S inus pressure Administer 2 sprays into each nostril 1 (one) time each day. Shake gently. Before first use, prime pump. After use, clean tip and replace cap. 16 g 5 07/13/20 25 026 Active ondansetron ODT (ZOFRAN-ODT) 4 mg disintegrating tablet 04/05/20 25 025 Discontin ued(Thera py completed ) amoxicillin-clavul anate (AUGMENTIN) 875-125 mg per tabletIndications: Sinus pressure Take 1 tablet by mouth 2 (two) times a day for 10 days. 20 each 07/13/20 25 025 Discontin ued(Thera py completed ) Active Problems Problem Noted Date Diagnosed [...] PM EDT): She was prescribed Augmentin by [facility] and she will complete a course. Symptoms have improved. I have placed a referral to gastroenterology (Dr. Blunt at [facility]) for her. She will also keep her [...] Encounters Date Type Department Care Team Description 08/16/2025 Telephone Internal Medicine - [facility] [address] [facility] [place] [phone] Feroz Reyes MD 08/16/2025 Telephone Internal Medicine [address] [phone] Feroz Reyes MD 08/11/2025 [facility] [address] [phone] Feroz Reyes MD 08/02/2025 [facility] 175 [facility] [address] [place] [phone] Radha Malin MD 07/27/2025 9:30 AM EST Office Visit Internal [address] [phone] Feroz Reyes MD Hypercholesterolemia (Primary Dx); Essential hypertension; Allergic rhinitis, unspecified seasonality, unspecified trigger 07/27/[address] [phone] Feroz Reyes MD 07/14/2025 Results Follow-Up Internal [address] [phone] Art Martinez NP 07/13/2025 1:35 PM EST Lab Draw Station [address] Vitamin D deficiency; Fatigue, unspecified type; Screening for metabolic disorder 07/13/2025 1:00 PM EST Office Visit Internal [address] [phone] Art Martinez NP Fatigue, unspecified type (Primary Dx); Sinus pressure; Screening for metabolic disorder; Vitamin D deficiency; Essential hypertension; Skin tag 07/07/2025 [facility] [address] [phone] Feroz Reyes MD 05/20/2025 Telephone Internal [address] [phone] Feroz Reyes MD from Last 3 Months Immunizations Immunization Administration [...] CATHETERIZATION PROCEDURE: HISTORICAL CARDIAC CATH CHOLECYSTECTOMY PROCEDURE: AK LAPAROSCOPY SURG CHOLECYSTECTOMY COLONOSCOPY PROCEDURE: HISTORICAL COLONOSCOPY [...] care for your loved ones. For example, residential child care counselor or elderly care for an older adult? [...] Office Visit Internal Medicine - [facility] [address] [place] [address] Avelino Ca, [address] [place] [address] 03/31/2026 10:30 AM EDT Appointment [facility] Ultrasound [address] [place] [address] 04/06/2026 10:30 AM EDT Office Visit Vascular Surgery - [place] [address] [place] [address] Karol Schafer MD [address] [place] [phone] Health Maintenance Due Date Last Done [...] Modality Computed Tomogra phy us Provider [facility] PROCED[facility] Final Result * (ABNORMAL) CBC auto differential (07/13/2025 1:48 PM EST) [facility] WBC 6.8 4.8 - 10.8 K/mcL LAB HEMETOLOGY METHOD 07/13/2025 3:13 PM [facility] RBC 3.90 3.80 - 4.80 M/mcL LAB HEMETOLOGY METHOD 07/13/2025 3:13 PM [facility] Hemoglobin 11.4(L) 11.5 - 16.0 g/dL LAB HEMETOLOGY METHOD 07/13/2025 3:13 PM [facility] Hematocrit 35.3 35.0 - 47.0 % LAB HEMETOLOGY METHOD 07/13/2025 3:13 PM [facility] MCV 91.5 79.0 - 98.0 FL LAB HEMETOLOGY METHOD 07/13/2025 3:13 PM [facility] MCH 29.5 27.0 - 32.0 pcg LAB HEMETOLOGY METHOD 07/13/2025 3:13 PM [facility] MCHC 32.3 32.0 - 37.0 g/dL LAB HEMETOLOGY METHOD 07/13/2025 3:13 PM [facility] RDW 14.0 11.0 - 15.0 % LAB HEMETOLOGY METHOD 07/13/2025 3:13 PM [facility] Platelets 187 130 - 400 K/mcL LAB HEMETOLOGY METHOD 07/13/2025 3:13 PM [facility] MPV 10.4 7.0 - 11.0 FL LAB HEMETOLOGY METHOD 07/13/2025 3:13 PM [facility] NRBC 0.0 <1.0 % LAB HEMETOLOGY METHOD 07/13/2025 3:13 PM [facility] NRBC Absolute 0.00 <0.10 K/mcL LAB HEMETOLOGY METHOD 07/13/2025 3:13 PM [facility] Neutrophils Relative 50.9 % LAB HEMETOLOGY METHOD 07/13/2025 3:13 PM [facility] Lymphocytes Relative 39.0 % LAB HEMETOLOGY METHOD 07/13/2025 3:13 PM [facility] Monocytes Relative 8.1 % LAB HEMETOLOGY METHOD 07/13/2025 3:13 PM [facility] Eosinophils Relative 1.3 % LAB HEMETOLOGY METHOD 07/13/2025 3:13 PM [facility] Basophils Relative 0.6 % LAB HEMETOLOGY METHOD 07/13/2025 3:13 PM [facility] Immature Granulocytes Relative 0.1 % LAB HEMETOLOGY METHOD 07/13/2025 3:13 PM [facility] Neutrophils Absolute 3.47 1.50 - 7.00 K/mcL LAB HEMETOLOGY METHOD 07/13/2025 3:13 PM [facility] Lymphocytes Absolute 2.66 1.00 - 5.00 K/mcL LAB HEMETOLOGY METHOD 07/13/2025 3:13 PM [facility] Monocytes Absolute 0.55 0.20 - 1.00 K/mcL LAB HEMETOLOGY METHOD 07/13/2025 3:13 PM [facility] Eosinophils Absolute 0.09 0.00 - 0.50 K/mcL LAB HEMETOLOGY METHOD 07/13/2025 3:13 PM [facility] Basophils Absolute 0.04 0.00 - 0.20 K/mcL LAB HEMETOLOGY METHOD 07/13/2025 3:13 PM [facility] Immature Granulocytes Absolute 0.01 0.00 - 0.03 K/mcL LAB HEMETOLOGY METHOD 07/13/2025 3:13 PM [facility] Blood Venous blood specimen / Unknown Venipuncture / Unknown 07/13/2025 1:48 PM EST 07/13/2025 1:48 PM EST Art Martinez NP LAB BLOOD ORDERABLES Gris l Result [facility] [address] [place] [address], [place] [phone] * Vitamin D 25 hydroxy (07/13/2025 1:48 PM EST) Pathologist [facility] Vit D, 25-Hydroxy 53.6 30.0 - 80.0 ng/mL 07/13/2025 6:47 PM [facility] Blood Venous blood specimen / Unknown Venipuncture / Unknown 07/13/2025 1:48 PM EST 07/13/2025 1:48 PM EST Art Martinez NP LAB BLOOD ORDERABLES Gris l Result Performing Organization Address [facility]/ZIP Co de Phone Number [facility] [address] [place] [address], [place] [phone] * (ABNORMAL) Comprehensive metabolic panel (07/13/2025 1:48 PM EST) [facility] Sodium 142 133 - 145 mmol/L 07/13/2025 6:45 PM [facility] Potassium 4.3 3.5 - 5.5 mmol/L 07/13/2025 6:45 PM [facility] Chloride 107 96 - 110 mmol/L 07/13/2025 6:45 PM [facility] CO2 24 21 - 32 mmol/L 07/13/2025 6:45 PM [facility] Anion Gap 11 3 - 11 07/13/2025 6:45 PM [facility] Glucose 53(L) 70 - 100 mg/dL 07/13/2025 6:45 PM [facility] BUN 11 5 - 25 mg/dL 07/13/2025 6:45 PM [facility] Creatinine 0.84 0.50 - 1.10 mg/dL 07/13/2025 6:45 PM [facility] eGFR 69 >=60 mL/min/1. 73m2 07/13/2025 6:45 PM [facility] Comment:Calculation based on the Chronic Kidney Disease Epidemiology Collaboration (CKD-EPI) equation refit without adjustment for race. BUN/Creatinine Ratio 13.1 07/13/2025 6:45 PM [facility] Calcium 9.7 8.5 - 10.5 mg/dL 07/13/2025 6:45 PM [facility] AST (SGOT) 24 10 - 42 unit/L 07/13/2025 6:45 PM [facility] ALT (SGPT) 17 10 - 60 unit/L 07/13/2025 6:45 PM [facility] Alkaline Phosphatase 71 42 - 121 unit/L 07/13/2025 6:45 PM [facility] Total Protein 5.5(L) 6.0 - 8.0 g/dL 07/13/2025 6:45 PM [facility] Albumin 4.0 3.2 - 5.0 g/dL 07/13/2025 6:45 PM [facility] Total Bilirubin 0.4 0.0 - 1.4 mg/dL 07/13/2025 6:45 PM [facility] Blood Venous blood specimen / Unknown Venipuncture / Unknown 07/13/2025 1:48 PM EST 07/13/2025 1:48 PM EST us Art Martinez NP LAB BLOOD ORDERABLES Gris l Result [facility] [address] [place] [address], * External MRI Report (06/21/2025) Only the [...] lt [facility] [address] [place] [address], * DXA BONE DENSITY STUDY 1+ SITS [...] (World Health Organization Fracture Risk Assessment) [facility] Department of Internal Medicine recommends [...] alternative screening schedule based on will Schaefer., [facility] September 13, 2011 for patients with [...] years. (World HealthOrganization Fracture Risk Assessment) [facility] Department of Internal Medicine recommendsusing [...] MEDICARE ADVANTAGE MEDICAID - [place] Care Teams Refuse Collector Relationship Specialty Start Date End Date Feroz Reyes MD [address] [place] [id number] PCP - General Internal Medicine 09/29/20
--- OUTSIDE RECORDS SUMMARY | 2025-08-17 16:00 | XMS_ITS | Clinical Summary ---
Author Organization [facility], Address [address] [place] [address] [place] [phone] Phone Care Team Providers Care Guidance Counselor Name Role Phone Genaro Herrera Primary Care Provider [phone] Allergies Active Allergy Reactions Criticality Noted Date [...] by mouth 10/31/2020 Active ergocalciferol 1.25 MG (85533 UT) capsule TAKE 1 CAPSULE BY MOUTH [...] patient's age to complete this topic Insurance [place] Care Teams Guidance Counselor Relationship Specialty Start Date End Date Genaro Herrera [address] [place] [phone] PCP - General Internal Medicine 02/16/21
--- OUTSIDE RECORDS SUMMARY | 2025-08-17 16:00 | XMS_ITS | Encounter Summary ---
Author Organization [facility] Address [address] [place] [address] Care Team Providers Care Brick Picker Name Role Phone Feroz Reyes MD Primary Care Provider [phone] Reason for Visit * Reason Onset Date Comments [facility]NA CALL 08/16/2025 [place] [facility] Encounter Details Date Type Department Care Team (Late st Contact Info) Description 08/16/2025 [facility]phone [facility] [address] [place] [phone] Feroz Reyes MD [address] [place] [phone] Social History Tobacco Use Types Packs/Day Years [...] for your loved ones. For example, children's author or elderly care for an older adult? [...] Progress Notes * Patricia Valencia RN - 08/17/2025 9:26 AM EST Spoke with Ang from [facility] requesting VO for Longterm 2 times a week for 2 weeks and 1 times a week for 7 weeks start of care 08/15. VO given * Layla Maria LPN - 08/16/2025 11:20 AM EST Left message on voicemail. Please re-message to Triage. * Glen Voss - 08/16/2025 10:10 AM EST [facility]NA CALL Which [facility] office is calling? [place] [facility] Full name of caller: Ang Knott The caller is A nurse Is the caller at the patients home?: no Reason for call: Needs verbal for Longterm 2 x per wk for 2 wks and 1 x per wk for 7 wks. Start of care 08-15-25 Does caller need an urgent call back? no Was CONTACT Telephone # obtained above?: yes Fax #: n/a documented in this encounter Plan of Treatment Upcoming Encounters Date Type Department Care Team (Late st Contact Info) Description 08/23/2025 1:30 PM EST Office Visit Internal Medicine - [facility] [address] [place] [address] Avelino Ca DO [address] [place] [address] 03/31/2026 10:30 AM EDT Appointment [facility] Ultrasound [address] [place] [phone] 04/06/2026 10:30 AM EDT Office Visit Vascular Surgery - [place] [address] [place] [phone] Karol Schafer MD [address] [place] [phone] documented as of this encounter Visit Diagnoses Not on filedocumented in this encounter Additional Health Concerns Assessment Noted Time PHQ-9 Depression Total Score: 0 07/27/20 9:48 AM EST documented as of this encounter Care Teams Brick Picker Relationship Specialty Start Date End Date Feroz Reyes MD [address] [place] [phone] PCP - General Internal Medicine 09/29/20 documented as of this encounter
--- OUTSIDE RECORDS SUMMARY | 2025-08-17 16:00 | XMS_ITS | Clinical Summary ---
Author Organization [facility] Prior to 01/23/[address] [place] [address] Care Team Providers Care Food Management Aide Name Role Phone Feroz Reyes MD Primary Care Provider [phone] Social History Tobacco Use Types Packs/Day Years [...] age to complete this topic Care Teams Food Management Aide Relationship Specialty Start Date End Date Feroz Reyes MD PCP - General Internal Medicine 11/08/20
--- OUTSIDE RECORDS SUMMARY | 2025-08-17 16:00 | XMS_ITS | Encounter Summary ---
Author Organization [facility] Address [address] [place] [address] Care Team Providers Care Wire Photo Operator News Name Role Phone Feroz Reyes MD Primary Care Provider [phone] Reason for Visit * Reason Onset Date Comments Call to Patient 08/02/2025 Follow Up on ord er for US Arthrocentesis Asp Inj Joint Major Left Encounter Details Date Type Department Care Team (Late st Contact Info) Description 08/02/2025 Telephone Neurosurgery [facility] 175 [facility] [address] [place] [phone] Radha Malin MD [address] [place] [address] Social History Tobacco Use Types Packs/Day Years [...] for your loved ones. For example, child psychologist or elderly care for an older adult? [...] PM EST Office Visit Internal Medicine - [facility] [address] [place] [address] Avelino Ca DO [address] [place] [address] 03/31/2026 10:[address] [facility] Ultrasound [address] [place] [phone] 04/06/2026 10:30 AM EDT Office Visit Vascular Surgery - [place] [address] [place] [address] Karol Schafer MD [address] [place] [phone] documented as of this encounter Visit Diagnoses Not on filedocumented in this encounter Additional Health Concerns Assessment Noted Time PHQ-9 Depression Total Score: 0 07/27/20 25 9:48 AM EST documented as of this encounter Care Teams Wire Photo Operator News Relationship Specialty Start Date End Date Feroz Reyes MD [address] [place] [phone] PCP - General Internal Medicine 09/29/20 documented as of this encounter
== END 2025-08-17 15:21 | disposition home or self-care (01) ==
LOC: HO.HSM 14:41
PROVIDERS: PCP Internal Medicine; Visit Provider Registered Nurse
DX: G40.909 Epilepsy, unspecified, not intractable, without status epilepticus (principal); H93.13 Tinnitus, bilateral; M54.2 Cervicalgia; M54.9 Dorsalgia, unspecified; G89.29 Other chronic pain; I67.89 Other cerebrovascular disease
CPT/HCPCS: 99214

== ENCOUNTER → 2025-08-17 14:41 | Outpatient (BNVA) | payer OTHER, SELFPAY | PROVIDERS: PCP Internal Medicine; Visit Provider Registered Nurse | DX: G40.909 Epilepsy, unspecified, not intractable, without status epilepticus (principal); H93.13 Tinnitus, bilateral; I67.89 Other cerebrovascular disease; M54.2 Cervicalgia; M54.9 Dorsalgia, unspecified; G89.29 Other chronic pain; Z79.899 Other long term (current) drug therapy | CPT/HCPCS: 99212 ==